=== PATIENT | male | born 1940 | race African-American/Black ===

== ENCOUNTER 2016-11-09 06:23 | Inpatient (IN) | payer MEDICARE, OTHER ==
[2016-11-09 07:18] LABS: VENOUS BLOOD BASE EXCESS 6.4 mmol/L; VENOUS BLOOD HCO3 31.5 mmol/L (20-32); VENOUS BLOOD PCO2 46.6 mmHg (35-63); VENOUS BLOOD PH 7.45 (7.30-7.42)
[2016-11-09 07:25] LABS: APPEARANCE,URINE SLIGHTLY-CLOUDY; BILIRUBIN,URINE NEGATIVE (NEGATIVE); GLUCOSE, URINE NEGATIVE (NEGATIVE); KETONES,URINE NEGATIVE (NEGATIVE); LEUKOCYTE ESTERASE,URINE LARGE (NEGATIVE); NITRITE,URINE NEGATIVE (NEGATIVE); PROTEIN,URINE 30 mg/dL (NEGATIVE); URINE SPECIFIC GRAVITY 1.011; UROBILINOGEN,URINE NEGATIVE mg/dL (<2.0)
[2016-11-09 07:26] LABS: HEMATOCRIT 39.8 % (37.9-51.0); HEMOGLOBIN 13.2 g/dL (13.5-17.0); HGB HCT DIFFERENCE -0.2; MEAN CORPUSCULAR HGB CONC 33.2 g/dL (32.0-36.0); MEAN CORPUSCULAR VOLUME 91 fl (80-97); RED CELL DISTRIBUTION WIDTH 15.1 % (11.5-14.0); WHITE BLOOD COUNT 25.7 10^3/uL (4.0-10.5)
[2016-11-09 07:28] LABS: PROTHROMBIN TIME 13.6 SEC (11.4-15.4)
[2016-11-09 07:31] LABS: ALANINE AMINOTRANSFERASE 71 U/L (21-72); ALBUMIN 3.7 g/dL (3.5-5.0); ALKALINE PHOSPHATASE 173 U/L (38-126); ANION GAP 15 (5-19); ASPARTATE AMINO TRANSFERASE 30 U/L (17-59); BILIRUBIN,TOTAL 0.6 mg/dL (0.2-1.3); BLOOD UREA NITROGEN 57 mg/dL (7-20); CALCIUM 10.4 mg/dL (8.4-10.2); CARBON DIOXIDE 30 mmol/L (22-30); CHLORIDE 97 mmol/L (98-107); CREATININE RESULT 0.71 mg/dL (0.52-1.25); GLUCOSE 178 mg/dL (75-110); POTASSIUM 4.8 mmol/L (3.6-5.0); SODIUM 142.4 mmol/L (137-145); TOTAL PROTEIN 8.1 g/dL (6.3-8.2)
[2016-11-09 07:44] LABS: BAND NEUTROPHILS % (MANUAL) 9 % (3-5); BASOPHILS % (MANUAL) 0 % (0-2); EOSINOPHILS % (MANUAL) 0 % (0-6); LYMPHOCYTES % (MANUAL) 1 % (13-45); RBC MORPHOLOGY COMMENT NORMO-CYTIC/CHROMIC; TOTAL CELLS COUNTED 100
[2016-11-09] MEDS ORDERED: LEVOFLOXACIN 750 MG/D5W RTU 150 ML IV ONE (08:09)
[2016-11-09] MEDS ORDERED: CEFTRIAXONE 1 GM/D5W RTU 50 ML IV ONE (08:09)
[2016-11-09] MEDS ORDERED: ACETAMINOPHEN 325 MG SUPP.RECT PR ONE (08:10)
--- NOTE | 2016-11-09 08:19 | ER Document Report ---
ED General - General Chief Complaint: Fever Stated Complaint: FEVER Mode of Arrival: Medic Information source: Emergency Med Personnel, [facility] Records, Outside Facility Records Cannot obtain history due to: Dementia, Other - nonverbal Notes: This is a 75-year-old male with a complex medical history to include CVA with hemorrhagic conversion, and sacral decubitus ulcers who was sent to the emergency department from care facility for blood in his Vazquez catheter. History is limited secondary the fact the patient has end-stage dementia and is nonverbal. Of note he was noted by EMS to be febrile with an axillary temperature of 101. TRAVEL OUTSIDE OF THE [place] IN LAST 30 DAYS: No - Related Data Allergies/Adverse Reactions: oxycodone [Oxycodone] Adverse Reaction (Intermediate, Verified 03/11/16 07:31) agitation simvastatin [From Zocor] Adverse Reaction (Unknown, Verified 03/11/16 07:31) dysarthria Home Medications: Current Home Medications Acetaminophen [Tylenol Susp 160 mg/5 mL Oral Syring] 20.31 ml PEG Q6HP PRN 11/09 [History] Amlodipine Besylate [Norvasc 5 mg Tablet] 5 mg PEG DAILY 11/09/16 [History] Ascorbic Acid [Vitamin C 500 mg Tablet] 500 mg PEG DAILY 11/09/16 [History] Cranberry Extract [Cranberry 200 mg Capsule] 400 mg PEG DAILY 11/09/16 [History] Guaifenesin [Tussin] 15 ml PEG Q6H 11/09/16 [History] Insulin Glargine,Hum.rec.anlog [Lantus] 18 units SQ QHS 11/09/16 [History] Isosorb Dinit/Hydralazine HCl [Bidil 20-37.5 mg Tablet] 2 tab PEG TID 11/09/16 [ History] Lactulose [Constulose 10 gm/15 mL Oral Solution] 30 ml PEG BID 11/09/16 [History ] Levetiracetam 750 mg PEG BID 11/09/16 [History] Lisinopril [Prinivil 40 mg Tablet] 40 mg PEG DAILY 11/09/16 [History] Nitroglycerin [Nitrostat] 0.4 mg SL Q3M 11/09/16 [History] Omeprazole 20 mg PEG DAILY 11/09/16 [History] Polyethylene Glycol 3350 [Miralax Powder 17 gm/Packet] 17 gm PEG DAILY 11/09/16 [History] Zinc Sulfate [Zinc-220 Capsule] 220 mg PEG DAILY 11/09/16 [History] Past Medical History - General Information source: COUNTS INCLUDE 234 BEDS AT THE [facility] Records Cannot obtain history due to: Dementia - Social History Smoking Status: Unknown if Ever Smoked Family History: Reviewed & Not Pertinent, Other - Unable to obtain given mental status - Past Medical History Cardiac Medical History: Reports: Hx Hypercholesterolemia, Hx Hypertension Neurological Medical History: Reports: Hx Cerebrovascular Accident - CVA in 2013 , History of subarachnoid hemorrhage in 2016, Hx Seizures Endocrine Medical History: Reports: Hx Diabetes Mellitus Type 2 Renal/ Medical History: Reports: Hx Benign Prostatic Hyperplasia GI Medical History: Reports: Hx Gastroesophageal Reflux Disease - PEG tube post CVA Musculoskeltal Medical History: Reports Hx Muscle Weakness Psychiatric Medical History: Reports: Hx Dementia Denies: Hx Depression Past Surgical History: Reports: Hx Abdominal Surgery - Feeding gastrostomy tube - Immunizations Hx Diphtheria, Pertussis, Tetanus Vaccination: Yes Hx Pneumococcal Vaccination: 05/25/14 Physical Exam - Vital signs Vitals: Temp Pulse Resp BP Pulse Ox 100.1 F 122 H 23 H 119/61 93 11/09/16 06:34 11/09/16 06:34 11/09/16 06:34 11/09/16 06:34 11/09/16 06:34 - Notes Notes: PHYSICAL EXAMINATION: GENERAL: Chronically ill-appearing elderly male, groaning and in mild respiratory distress. Nonverbal HEAD: Atraumatic, normocephalic. EYES: Pupils equal round and reactive to light ENT: nares patent, oropharynx clear without exudates. Moist mucous membranes. NECK: supple without lymphadenopathy LUNGS: Coarse breath sounds bilaterally anteriorly with decreased bibasilar breath sounds. Mild tachypnea and occasional grunting HEART: Tachycardic, regular rate without murmurs ABDOMEN: Soft, nontender, normoactive bowel sounds. EXTREMITIES: No edema noted NEUROLOGICAL: Patient is nonverbal and unable to follow commands. SKIN: Warm, Dry, no rash. Sacral decubitus covered with wound care bandage Course - Re-evaluation Re-evalutation: 11/09/16 09:02 Patient exam and vitals are concerning for sepsis. IV fluid resuscitation and IV antibiotics have been initiated. Further history obtained from the . She states that she noticed over the past 2 days that his urine output was decreased at the detention. This morning he was noted to have some bleeding around the Vazquez site as well as some increased work of breathing. She confirms that this time that this patient is a full code. 11/09/16 10:07 Clinically I suspect pneumonia along with the urinary tract infection. Fluid resuscitation and IV antibiotics initiated and patient will be admitted to the [facility]. This was discussed with the patient's . questions were answered - Vital Signs Vital signs: Temp Pulse Resp BP Pulse Ox 99.0 F 117 H 24 H 101/50 L 97 11/09/16 15:08 11/09/16 15:08 11/09/16 15:08 11/09/16 15:08 11/09/16 15:08 - Laboratory Result Diagrams: 11/09/16 06:50 11/09/16 06:50 Laboratory results interpreted by me: 11/09/16 11/09/16 11/09/16 06:50 06:50 06:50 WBC 25.7 H Hgb 13.2 L RDW 15.1 H Seg Neuts % (Manual) 86 H Band Neutrophils % 9 H Lymphocytes % (Manual) 1 L Abs Neuts (Manual) 24.4 H Abs Lymphs (Manual) 0.3 L VBG pH 7.45 H Chloride 97 L BUN 57 H Glucose 178 H Calcium 10.4 H Alkaline Phosphatase 173 H Creatine Kinase Urine Protein Urine Blood Ur Leukocyte Esterase Urine Ascorbic Acid 11/09/16 11/09/16 06:50 06:50 WBC Hgb RDW Seg Neuts % (Manual) Band Neutrophils % Lymphocytes % (Manual) Abs Neuts (Manual) Abs Lymphs (Manual) VBG pH Chloride BUN Glucose Calcium Alkaline Phosphatase Creatine Kinase 48 L Urine Protein 30 H Urine Blood LARGE H Ur Leukocyte Esterase LARGE H Urine Ascorbic Acid 40 H - EKG Interpretation by Me Additional EKG results interpreted by me: 11/09/16 09:06 EKG at 6:44 AM demonstrates sinus tachycardia with a rate of 121. There are some nonspecific T-wave changes. Critical Care Note - Critical Care Note Total time excluding time spent on procedures (mins): 35 - minutes of critical care time spent in direct contact evaluating and reevaluating the patient, treating symptoms, reviewing labs and studies and speaking with family and consultants excluding any procedures Discharge - Discharge Clinical Impression: Sepsis Qualifiers: Sepsis type: sepsis due to unspecified organism Qualified Code(s): A41.9 - Sepsis, unspecified organism UTI (urinary tract infection) Qualifiers: Urinary tract infection type: site unspecified Hematuria presence: without hematuria Qualified Code(s): N39.0 - Urinary tract infection, site not specified Pneumonia Qualifiers: Pneumonia type: due to unspecified organism Laterality: unspecified laterality Lung location: unspecified part of lung Qualified Code(s): J18.9 - Pneumonia, unspecified organism Condition: Poor Disposition: ADMITTED INPATIENT Admitting Provider: Hospitalist - Dr. Walker Unit Admitted: [facility]
[2016-11-09] MEDS ORDERED: IPRATROPIUM/ALBUTEROL 0.5-2.5 MG/3 ML AMPUL NEB ONE (08:53)
[2016-11-09] MEDS ORDERED: VANCOMYCIN HCL INJ 1000 MG VIAL IV ONE (09:01)
[2016-11-09] MEDS: RINGERS SOLUTION,LACTATED 1,000 ML IV PRN ×2 (09:10→15:25)
[2016-11-09 09:25] LABS: CREATINE KINASE MB 0.45 ng/mL (<4.55)
[2016-11-09 09:28] LABS: TROPONIN I < 0.012 ng/mL
[2016-11-09] MEDS ORDERED: ONDANSETRON HCL INJ/PF 4 MG/2 ML SDV IV PRN (11:21)
[2016-11-09] MEDS ORDERED: ACETAMINOPHEN 325 MG TABLET PEG PRN (11:21)
[2016-11-09] MEDS ORDERED: VANCOMYCIN HCL 0 MG in DEXTROSE 5%-WATER 250 ML IV NR (11:45)
[2016-11-09] MEDS ORDERED: DEXTROSE 50%-WATER 25 GM/50 ML DISP.SYRIN IV PRN ×2 (11:49)
[2016-11-09] MEDS ORDERED: DEXTROSE 40% GEL 15 GM TUBE PO PRN ×2 (11:49)
[2016-11-09] MEDS ORDERED: GLUCAGON,HUMAN RECOMB 1 MG INJ IM PRN (11:49)
[2016-11-09] MEDS ORDERED: NITROGLYCERIN 0.4 MG/TAB 25 TAB/BOTTLE SL PRN ×2 (12:00→12:45)
--- NOTE | 2016-11-09 12:23 | PDOC H&P ---
History of Present Illness Admission Date/PCP: 11/09/16 11:21 SHEFALI BAGLEY MD Patient complains of: Fever and hematuria. History of Present Illness: THAD JOY is a 75 year old male who has a history of severe dementia as well as having had a previous CVA with hemorrhagic conversion who presents as a transfer [facility] after being noted to have fever and hematuria. Patient had his chronic Vazquez catheter changed out yesterday. The patient when he presented to emergency room was found to have a fever. Patient has pyuria consistent with an acute urinary tract infection as well as some tachycardia and fever consistent with the diagnosis sepsis. The emergency room physician was concerned that the patient may have pneumonia given some rails in the basis however the chest x-ray did not show an obvious pneumonia. The patient does have a sacral decubitus that's about 1 cm in diameter with packing in place with no purulent drainage. The patient is unable to give any history. He does have a tear at his meatus of his penis from what may represent some minor Vazquez trauma. Patient is admitted for diagnosis of sepsis possibly from urinary tract infection versus early pneumonia. Past Medical History Cardiac Medical History: Reports: Hyperlipidema, Hypertension Neurological Medical History: Reports: Seizures Endocrine Medical History: Reports: Diabetes Mellitus Type 2 Renal/ Medical History: Reports: None Malignancy Medical History: Reports: None GI Medical History: Reports: Gastroesophageal Reflux Disease - PEG tube post CVA Psychiatric Medical History: Reports: Dementia Denies: Depression Hematology: Reports: Anemia Infectious Medical History: Reports: Other - History of osteomyelitis of the sacrum. Past Surgical History Past Surgical History: Reports: Other - PEG tube placed Social History Information Source: Relative Lives with: [facility] Smoking Status: Unknown if Ever Smoked Frequency of Alcohol Use: None Hx Recreational Drug Use: No Drugs: None Hx Prescription Drug Abuse: No - Advance Directive Resuscitation Status: Full Code Family History Family History: Other - Unable to obtain given mental status Parental Family History Reviewed: No Children Family History Reviewed: No Sibling(s) Family History Reviewed.: No Medication/Allergy Home Medications: Acetaminophen [Tylenol Susp 160 mg/5 mL Oral Syring] 20.31 ml PEG Q6HP PRN 11/09 Amlodipine Besylate [Norvasc 5 mg Tablet] 5 mg PEG DAILY 11/09/16 Ascorbic Acid [Vitamin C 500 mg Tablet] 500 mg PEG DAILY 11/09/16 Cranberry Extract [Cranberry 200 mg Capsule] 400 mg PEG DAILY 11/09/16 Guaifenesin [Tussin] 15 ml PEG Q6H 11/09/16 Insulin Glargine,Hum.rec.anlog [Lantus] 18 units SQ QHS 11/09/16 Isosorb Dinit/Hydralazine HCl [Bidil 20-37.5 mg Tablet] 2 tab PEG TID 11/09/16 Lactulose [Constulose 10 gm/15 mL Oral Solution] 30 ml PEG BID 11/09/16 Levetiracetam 750 mg PEG BID 11/09/16 Lisinopril [Prinivil 40 mg Tablet] 40 mg PEG DAILY 11/09/16 Nitroglycerin [Nitrostat] 0.4 mg SL Q3M 11/09/16 Omeprazole 20 mg PEG DAILY 11/09/16 Polyethylene Glycol 3350 [Miralax Powder 17 gm/Packet] 17 gm PEG DAILY 11/09/16 Zinc Sulfate [Zinc-220 Capsule] 220 mg PEG DAILY 11/09/16 Allergies/Adverse Reactions: oxycodone [Oxycodone] Adverse Reaction (Intermediate, Verified 03/11/16 07:31) agitation simvastatin [From Zocor] Adverse Reaction (Unknown, Verified 03/11/16 07:31) dysarthria Review of Systems ROS unobtainable: Due to mental status Physical Exam Vital Signs: Temp Pulse Resp BP Pulse Ox 99.0 F 111 H 24 H 139/67 H 93 11/09/16 11:56 11/09/16 11:57 11/09/16 11:56 11/09/16 11:56 11/09/16 11:56 General appearance: PRESENT: no acute distress Head exam: PRESENT: atraumatic, normocephalic Eye exam: PRESENT: conjunctiva pink, EOMI. ABSENT: scleral icterus Ear exam: PRESENT: normal external ear exam Mouth exam: PRESENT: moist, tongue midline Neck exam: ABSENT: carotid bruit, JVD, lymphadenopathy, thyromegaly Respiratory exam: PRESENT: rhonchi - Coarse rhonchi in the bases.. ABSENT: rales, wheezes Cardiovascular exam: PRESENT: RRR. ABSENT: diastolic murmur, rubs, systolic murmur Vascular exam: PRESENT: normal capillary refill GI/Abdominal exam: PRESENT: normal bowel sounds, soft, other - PEG tube in place.. ABSENT: distended, guarding, mass, organolmegaly, rebound, tenderness Rectal exam: PRESENT: heme (-) stool Gentrourinary exam: PRESENT: indwelling catheter, other - Ventral side of penis shows a small tear in the meatus. Extremities exam: ABSENT: calf tenderness, clubbing, pedal edema Neurological exam: PRESENT: awake. ABSENT: alert, oriented to person, oriented to place, oriented to time, oriented to situation Psychiatric exam: PRESENT: flat affect Skin exam: PRESENT: other - Scar on the sacrum from an old large decubitus now with a small 1 cm area of skin breakdown has a dressing in place. Results Impressions: Chest X-Ray 11/09/16 06:35 IMPRESSION: NO ACUTE RADIOGRAPHIC FINDING IN THE CHEST. Assessment & Plan - Diagnosis (1) Sepsis Qualifiers: Sepsis type: sepsis due to unspecified organism Qualified Code(s): A41.9 - Sepsis, unspecified organism Is this a current diagnosis for this admission?: YesPlan: Patient has fever, tachycardia as well as relatively low blood pressure but still the normal range. He also has a source for infection in the form of urinary tract infection and this most likely represents early sepsis. Patient may have a pneumonia which is not present on chest x-ray but clinically is suggested. We will give IV fluids and will cover with Rocephin and vancomycin. Patient has been a resident of a long-term and is at risk for nosocomial infection. (2) UTI (urinary tract infection) Qualifiers: Urinary tract infection type: site unspecified Hematuria presence: without hematuria Qualified Code(s): N39.0 - Urinary tract infection, site not specified Is this a current diagnosis for this admission?: YesPlan: Patient has a chronic indwelling Vazquez. The patient has a history of growing out Proteus as well as group B strep. We'll cover with Rocephin and vancomycin. (3) Pneumonia Qualifiers: Pneumonia type: due to unspecified organism Laterality: unspecified laterality Lung location: unspecified part of lung Qualified Code(s): J18.9 - Pneumonia, unspecified organism Is this a current diagnosis for this admission?: YesPlan: Patient has physical findings that are suggestive of pneumonia although is not present on the chest x-ray. We'll go ahead and cover with Rocephin and vancomycin. (4) Diabetes mellitus Is this a current diagnosis for this admission?: YesPlan: We'll continue with scheduled insulin as well as sliding scale insulin coverage. (5) Hyperlipidemia Is this a current diagnosis for this admission?: Yes (6) Dementia Is this a current diagnosis for this admission?: YesPlan: Patient at baseline does not answer questions or interact. (7) Seizure disorder Is this a current diagnosis for this admission?: YesPlan: We'll continue his outpatient antiepileptic regimen. (8) G tube feedings Is this a current diagnosis for this admission?: YesPlan: Patient has been getting Glucerna 1.2 at 80 mL per hour with water flushes 250 mL every 6 hours. (9) HTN (hypertension) Qualifiers: Hypertension type: essential hypertension Qualified Code(s): I10 - Essential (primary) hypertension Is this a current diagnosis for this admission?: Yes (10) Osteomyelitis Is this a current diagnosis for this admission?: YesPlan: Patient has a history of vasculitis of the sacrum. He has completed a six-week course of antibiotics for this. He still has a small area skin breakdown her sacrum but does not appear to be involving the bone at this time. (11) Decubitus ulcer of coccygeal region, stage 2 Is this a current diagnosis for this admission?: YesPlan: We'll do wet-to-dry dressings and a small area approximately 1 cm of the coccygeal area (12) History of cerebral hemorrhage Is this a current diagnosis for this admission?: Yes (13) Full code status Is this a current diagnosis for this admission?: YesPlan: Daughter is at the bedside and she wants him to be a full code. - Time Time Spent: 50 to 70 Minutes - Inpatient Certification Medical Necessity: Need Close Monitoring Due to Risk of Patient Decompensation
[2016-11-09] MEDS: NORMAL SALINE 1000 ML 1,000 ML IV PRN (12:31)
[2016-11-09] MEDS ORDERED: LANSOPRAZOLE 15 MG TAB.RAP.DR PEG ONE (13:00)
[2016-11-09] MEDS ORDERED: AMLODIPINE BESYLATE 5 MG TABLET PEG ONE (13:00)
[2016-11-09] MEDS ORDERED: VANCOMYCIN HCL 1,500 MG in DEXTROSE 5%-WATER 250 ML IV ONE (13:00)
[2016-11-09] MEDS ORDERED: LEVETIRACETAM ORAL SOLN 500 MG/5 ML UDCUP PEG ONE (13:00)
[2016-11-09] MEDS ORDERED: ZINC SULFATE 220 MG CAPSULE PEG ONE (13:00)
[2016-11-09] MEDS ORDERED: LISINOPRIL 10 MG TABLET PEG ONE (13:00)
[2016-11-09] MEDS ORDERED: ASCORBIC ACID 500 MG TABLET PEG ONE (13:00)
[2016-11-09] MEDS ORDERED: POLYETHYLENE GLYCOL 3350 POWDER 17 GM/1 PACKET PEG ONE (13:00)
[2016-11-09] MEDS: GUAIFENESIN SYRP 200 MG/10 ML UDC PEG SCH ×2 (13:15→17:03)
[2016-11-09] MEDS: IPRATROPIUM/ALBUTEROL 0.5-2.5 MG/3 ML AMPUL NEB PRN ×2 (13:28→20:50)
[2016-11-09] MEDS: ISOSORB DINIT/HYDRALAZINE HCL 20-37.5 MG TABLET PEG SCH ×2 (15:25→21:47)
--- NOTE | 2016-11-09 16:10 | EKG REPORT ---
SEVERITY:- OTHERWISE NORMAL ECG - SINUS TACHYCARDIA : Confirmed by: Dahlia Oliver MD 09-Nov-2016 16:10:02
[2016-11-09] MEDS ORDERED: ENOXAPARIN SODIUM INJ 40 MG/0.4 ML DISP.SYRIN SUBCUT ONE (16:30)
[2016-11-09] MEDS: LACTULOSE SYRUP 20 GM/30 ML UDCUP PEG SCH (17:03)
[2016-11-09] MEDS ORDERED: (PENDING PHARMACY ID) (Lactulose [Constulose 10 Gm/15 Ml Oral Solution] 30 ML) PEG SCH (18:00)
[2016-11-09] MEDS: INSULIN GLARGINE,HUM.REC.ANLOG 300 UNIT/3 ML INSULN.PEN SUBCUT SCH (21:43)
[2016-11-09] MEDS: INSULIN LISPRO 100 UNIT/ML 3 ML VIAL SUBCUT PRN (21:44)
[2016-11-09] MEDS: LEVETIRACETAM ORAL SOLN 500 MG/5 ML UDCUP PEG SCH (21:45)
[2016-11-09] MEDS: FAMOTIDINE 20 MG TABLET PO SCH (21:45)
[2016-11-09] MEDS ORDERED: INSULIN GLARGINE,HUM.REC.ANLOG 1,000 UNIT/10 ML UNIT SUBCUT SCH (22:00)
[2016-11-10] MEDS: GUAIFENESIN SYRP 200 MG/10 ML UDC PEG SCH ×4 (00:37→17:03)
[2016-11-10] MEDS: NORMAL SALINE 1000 ML 1,000 ML IV PRN ×3 (03:59→22:42)
[2016-11-10 04:40] LABS: HEMATOCRIT 34.9 % (37.9-51.0); HEMOGLOBIN 11.3 g/dL (13.5-17.0); MEAN CORPUSCULAR HGB CONC 32.4 g/dL (32.0-36.0); MEAN CORPUSCULAR VOLUME 93 fl (80-97); RED BLOOD COUNT 3.77 10^6/uL (4.35-5.55); RED CELL DISTRIBUTION WIDTH 15.5 % (11.5-14.0); WHITE BLOOD COUNT 21.5 10^3/uL (4.0-10.5)
[2016-11-10 05:05] LABS: ANION GAP 14 (5-19); BLOOD UREA NITROGEN 48 mg/dL (7-20); CALCIUM 9.5 mg/dL (8.4-10.2); CARBON DIOXIDE 25 mmol/L (22-30); CHLORIDE 104 mmol/L (98-107); GLUCOSE 183 mg/dL (75-110); MAGNESIUM 2.1 mg/dL (1.6-2.3); POTASSIUM 4.4 mmol/L (3.6-5.0); SODIUM 142.5 mmol/L (137-145)
[2016-11-10] MEDS: ISOSORB DINIT/HYDRALAZINE HCL 20-37.5 MG TABLET PEG SCH ×3 (05:39→22:43)
[2016-11-10] MEDS: VANCOMYCIN HCL 750 MG in DEXTROSE 5%-WATER 250 ML IV SCH ×2 (05:46→17:03)
[2016-11-10] MEDS: INSULIN LISPRO 100 UNIT/ML 3 ML VIAL SUBCUT PRN ×2 (06:37→18:52)
[2016-11-10] MEDS ORDERED: ENOXAPARIN SODIUM INJ 40 MG/0.4 ML DISP.SYRIN SUBCUT SCH (08:00)
[2016-11-10] MEDS: ENOXAPARIN SODIUM INJ 40 MG/0.4 ML DISP.SYRIN SUBCUT SCH (08:45)
[2016-11-10] MEDS ORDERED: CRANBERRY EXTRACT 400 MG PEG SCH (10:00)
[2016-11-10] MEDS: IPRATROPIUM/ALBUTEROL 0.5-2.5 MG/3 ML AMPUL NEB PRN (10:24)
[2016-11-10] MEDS: POLYETHYLENE GLYCOL 3350 POWDER 17 GM/1 PACKET PEG SCH (10:54)
[2016-11-10] MEDS: LISINOPRIL 10 MG TABLET PEG SCH (10:54)
[2016-11-10] MEDS: ASCORBIC ACID 500 MG TABLET PEG SCH (10:55)
[2016-11-10] MEDS: FAMOTIDINE 20 MG TABLET PO SCH ×2 (10:55→22:41)
[2016-11-10] MEDS: AMLODIPINE BESYLATE 5 MG TABLET PEG SCH (10:55)
[2016-11-10] MEDS: LACTULOSE SYRUP 20 GM/30 ML UDCUP PEG SCH ×2 (10:55→17:03)
[2016-11-10] MEDS: LANSOPRAZOLE 15 MG TAB.RAP.DR PEG SCH (10:55)
[2016-11-10] MEDS: ZINC SULFATE 220 MG CAPSULE PEG SCH (10:56)
[2016-11-10] MEDS: CEFTRIAXONE 1 GM/D5W RTU 50 ML IV SCH (10:56)
[2016-11-10] MEDS: LEVETIRACETAM ORAL SOLN 500 MG/5 ML UDCUP PEG SCH ×2 (10:57→22:41)
--- NOTE | 2016-11-10 11:00 | PDOC PROGRESS REPORT ---
Subjective Progress Note for:: 11/10/16 Subjective:: Patient is nonverbal. Physical Exam Vital Signs: Temp Pulse Resp BP Pulse Ox 97.3 F 84 20 99/51 L 95 11/10/16 07:19 11/10/16 10:24 11/10/16 10:24 11/10/16 07:19 11/10/16 10:24 Intake & Output 11/09/16 11/10/16 11/11/16 06:59 06:59 06:59 Intake Total 8184 Output Total 1300 Balance 6884 Weight 80.2 kg General appearance: PRESENT: no acute distress Eye exam: PRESENT: conjunctiva pink. ABSENT: scleral icterus Mouth exam: PRESENT: moist, tongue midline Neck exam: ABSENT: JVD Respiratory exam: PRESENT: clear to auscultation yokasta. ABSENT: rales, rhonchi, wheezes Cardiovascular exam: PRESENT: RRR. ABSENT: diastolic murmur, rubs, systolic murmur GI/Abdominal exam: PRESENT: normal bowel sounds, soft, other - G-tube in place.. ABSENT: distended, guarding, mass, organolmegaly, rebound, tenderness Extremities exam: PRESENT: full ROM. ABSENT: calf tenderness, clubbing, pedal edema Neurological exam: PRESENT: awake, other - Patient is nonverbal Psychiatric exam: PRESENT: flat affect Skin exam: PRESENT: other - Dressing in place on the sacrum Results Laboratory Results: 11/10/16 03:48 11/10/16 03:48 11/10/16 11/10/16 03:48 03:48 WBC 21.5 H RBC 3.77 L Hgb 11.3 L Hct 34.9 L MCV 93 MCH 30.0 MCHC 32.4 RDW 15.5 H Plt Count 160 Sodium 142.5 Potassium 4.4 Chloride 104 Carbon Dioxide 25 Anion Gap 14 BUN 48 H Creatinine 0.70 Est GFR ( Amer) > 60 Est GFR (Non-Af Amer) > 60 Glucose 183 H Calcium 9.5 Magnesium 2.1 Impressions: Chest X-Ray 11/09/16 06:35 IMPRESSION: NO ACUTE RADIOGRAPHIC FINDING IN THE CHEST. Assessment & Plan - Diagnosis (1) Sepsis Qualifiers: Sepsis type: sepsis due to unspecified organism Qualified Code(s): A41.9 - Sepsis, unspecified organism Is this a current diagnosis for this admission?: YesPlan: Patient has fever, tachycardia as well as relatively low blood pressure but still the normal range. He also has a source for infection in the form of urinary tract infection and this most likely represents early sepsis. Patient may have a pneumonia which is not present on chest x-ray but clinically is suggested. We will give IV fluids and will cover with Rocephin and vancomycin. Patient has been a resident of a half-way and is at risk for nosocomial infection. (2) UTI (urinary tract infection) Qualifiers: Urinary tract infection type: site unspecified Hematuria presence: without hematuria Qualified Code(s): N39.0 - Urinary tract infection, site not specified Is this a current diagnosis for this admission?: YesPlan: Patient has a chronic indwelling Vazquez. The patient has a history of growing out Proteus as well as group B strep. We'll cover with Rocephin and vancomycin. Cultures are growing gram-negative rods and gram-positive cocci. (3) Pneumonia Qualifiers: Pneumonia type: due to unspecified organism Laterality: unspecified laterality Lung location: unspecified part of lung Qualified Code(s): J18.9 - Pneumonia, unspecified organism Is this a current diagnosis for this admission?: YesPlan: Patient had physical findings that are suggestive of pneumonia although is not present on the chest x-ray. We'll go ahead and cover with Rocephin and vancomycin. (4) Diabetes mellitus Is this a current diagnosis for this admission?: YesPlan: We'll continue with scheduled insulin as well as sliding scale insulin coverage. Blood sugars have ranged from 170-240. (5) Hyperlipidemia Is this a current diagnosis for this admission?: Yes (6) Dementia Is this a current diagnosis for this admission?: YesPlan: Patient at baseline does not answer questions or interact. (7) Seizure disorder Is this a current diagnosis for this admission?: YesPlan: We'll continue his outpatient antiepileptic regimen. (8) G tube feedings Is this a current diagnosis for this admission?: YesPlan: Patient has been getting Glucerna 1.2 at 80 mL per hour with water flushes 250 mL every 6 hours. (9) HTN (hypertension) Qualifiers: Hypertension type: essential hypertension Qualified Code(s): I10 - Essential (primary) hypertension Is this a current diagnosis for this admission?: Yes (10) Osteomyelitis Is this a current diagnosis for this admission?: YesPlan: Patient has a history of osteomyelitis of the sacrum. The history and physical stated he had vasculitis but it should have read osteomyelitis. He has completed a six-week course of antibiotics for this. He still has a small area skin breakdown her sacrum but does not appear to be involving the bone at this time. (11) Decubitus ulcer of coccygeal region, stage 2 Is this a current diagnosis for this admission?: YesPlan: We'll do wet-to-dry dressings and a small area approximately 1 cm of the coccygeal area (12) History of cerebral hemorrhage Is this a current diagnosis for this admission?: Yes (13) Full code status Is this a current diagnosis for this admission?: YesPlan: Daughter wants him to be a full code. - Time Time Spent with patient: 25-34 minutes - Inpatient Certification Medical Necessity: Need for IV Antibiotics
[2016-11-10] MEDS: INSULIN GLARGINE,HUM.REC.ANLOG 300 UNIT/3 ML INSULN.PEN SUBCUT SCH (22:41)
[2016-11-11] MEDS: GUAIFENESIN SYRP 200 MG/10 ML UDC PEG SCH ×4 (00:54→17:13)
[2016-11-11] MEDS: INSULIN LISPRO 100 UNIT/ML 3 ML VIAL SUBCUT PRN ×4 (00:55→17:13)
[2016-11-11] MEDS: NORMAL SALINE 1000 ML 1,000 ML IV PRN ×3 (04:15→22:37)
[2016-11-11] MEDS: ISOSORB DINIT/HYDRALAZINE HCL 20-37.5 MG TABLET PEG SCH ×3 (05:38→22:37)
[2016-11-11] MEDS: VANCOMYCIN HCL 750 MG in DEXTROSE 5%-WATER 250 ML IV SCH ×2 (05:38→17:50)
[2016-11-11 06:12] LABS: ANION GAP 9 (5-19); BLOOD UREA NITROGEN 25 mg/dL (7-20); CALCIUM 9.1 mg/dL (8.4-10.2); CARBON DIOXIDE 26 mmol/L (22-30); CHLORIDE 108 mmol/L (98-107); CREATININE RESULT 0.45 mg/dL (0.52-1.25); GLUCOSE 155 mg/dL (75-110); SODIUM 143.2 mmol/L (137-145)
[2016-11-11 06:13] LABS: HEMATOCRIT 30.2 % (37.9-51.0); HGB HCT DIFFERENCE -0.2; MEAN CORPUSCULAR HEMOGLOBIN 30.3 pg (27.0-33.4); MEAN CORPUSCULAR HGB CONC 33.2 g/dL (32.0-36.0); MEAN CORPUSCULAR VOLUME 91 fl (80-97); RED BLOOD COUNT 3.31 10^6/uL (4.35-5.55); RED CELL DISTRIBUTION WIDTH 15.4 % (11.5-14.0); WHITE BLOOD COUNT 15.8 10^3/uL (4.0-10.5)
[2016-11-11 07:01] LABS: BAND NEUTROPHILS % (MANUAL) 2 % (3-5); BASOPHILS % (MANUAL) 0 % (0-2); EOSINOPHILS % (MANUAL) 1 % (0-6); LYMPHOCYTES % (MANUAL) 4 % (13-45); TOTAL CELLS COUNTED 100
[2016-11-11 07:04] LABS: ANISOCYTOSIS 1+; HYPOCHROMASIA SLIGHT; POLYCHROMASIA SLIGHT
[2016-11-11] MEDS: ENOXAPARIN SODIUM INJ 40 MG/0.4 ML DISP.SYRIN SUBCUT SCH (07:54)
--- NOTE | 2016-11-11 09:32 | PDOC PROGRESS REPORT ---
Subjective Progress Note for:: 11/11/16 Subjective:: Patient is nonverbal. Physical Exam Vital Signs: Temp Pulse Resp BP Pulse Ox 99.0 F 86 22 H 100/49 L 98 11/11/16 07:15 11/11/16 07:15 11/11/16 07:15 11/11/16 07:15 11/11/16 07:15 Intake & Output 11/10/16 11/11/16 11/12/16 06:59 06:59 06:59 Intake Total 8184 4817 Output Total 1300 2800 Balance 6884 2016 Weight 80.2 kg 90.2 kg General appearance: PRESENT: no acute distress Eye exam: PRESENT: conjunctiva pink. ABSENT: scleral icterus Ear exam: PRESENT: normal external ear exam Mouth exam: PRESENT: moist, tongue midline Neck exam: ABSENT: JVD Respiratory exam: PRESENT: clear to auscultation y[place]. ABSENT: rales, rhonchi, wheezes Cardiovascular exam: PRESENT: RRR. ABSENT: diastolic murmur, rubs, systolic murmur GI/Abdominal exam: PRESENT: normal bowel sounds, soft, other - G-tube in place the left upper quadrant. ABSENT: distended, guarding, mass, organolmegaly, rebound, tenderness Gentrourinary exam: PRESENT: indwelling catheter, other - Medial aspect of the meatus has a small amount of clot present. Extremities exam: ABSENT: calf tenderness, clubbing, pedal edema Neurological exam: PRESENT: other - Patient is nonverbal does not interact. Psychiatric exam: PRESENT: flat affect Skin exam: PRESENT: other - Stage II decubitus on the sacrum approximately 1 cm in diameter. Results Laboratory Results: 11/11/16 04:31 11/11/16 04:31 11/11/16 11/11/16 04:31 04:31 WBC 15.8 H RBC 3.31 L Hgb 10.0 L Hct 30.2 L MCV 91 MCH 30.3 MCHC 33.2 RDW 15.4 H Plt Count 145 L Seg Neutrophils % Not Reportable Lymphocytes % Not Reportable Monocytes % Not Reportable Eosinophils % Not Reportable Basophils % Not Reportable Absolute Neutrophils Not Reportable Absolute Lymphocytes Not Reportable Absolute Monocytes Not Reportable Absolute Eosinophils Not Reportable Absolute Basophils Not Reportable Sodium 143.2 Potassium 4.0 Chloride 108 H Carbon Dioxide 26 Anion Gap 9 BUN 25 H Creatinine 0.45 L Est GFR ( Amer) > 60 Est GFR (Non-Af Amer) > 60 Glucose 155 H Calcium 9.1 Impressions: Chest X-Ray 11/09/16 06:35 IMPRESSION: NO ACUTE RADIOGRAPHIC FINDING IN THE CHEST. Assessment & Plan - Diagnosis (1) Sepsis Qualifiers: Sepsis type: sepsis due to unspecified organism Qualified Code(s): A41.9 - Sepsis, unspecified organism Is this a current diagnosis for this admission?: YesPlan: Patient has fever, tachycardia as well as relatively low blood pressure but still the normal range. He also has a source for infection in the form of urinary tract infection and this most likely represents early sepsis. Patient may have a pneumonia which is not present on chest x-ray but clinically is suggested. We will give IV fluids and will cover with Rocephin and vancomycin. Patient has been a resident of a retirement and is at risk for nosocomial infection. Patient is growing gram-positive cocci from blood culture and gram- negative jelani from urine culture. He does have a chronic indwelling Vazquez. (2) UTI (urinary tract infection) Qualifiers: Urinary tract infection type: site unspecified Hematuria presence: without hematuria Qualified Code(s): N39.0 - Urinary tract infection, site not specified Is this a current diagnosis for this admission?: YesPlan: Patient has a chronic indwelling Vazquez. The patient has a history of growing out Proteus as well as group B strep. We'll cover with Rocephin and vancomycin. Cultures are growing gram-negative rods and gram-positive cocci. (3) Pneumonia Qualifiers: Pneumonia type: due to unspecified organism Laterality: unspecified laterality Lung location: unspecified part of lung Qualified Code(s): J18.9 - Pneumonia, unspecified organism Is this a current diagnosis for this admission?: YesPlan: Patient had physical findings that are suggestive of pneumonia although is not present on the chest x-ray. We'll go ahead and cover with Rocephin and vancomycin. (4) Diabetes mellitus Is this a current diagnosis for this admission?: YesPlan: We'll continue with scheduled insulin as well as sliding scale insulin coverage. Blood sugars have ranged from 135-226 (5) Hyperlipidemia Is this a current diagnosis for this admission?: Yes (6) Dementia Is this a current diagnosis for this admission?: YesPlan: Patient at baseline does not answer questions or interact. (7) Seizure disorder Is this a current diagnosis for this admission?: YesPlan: We'll continue his outpatient antiepileptic regimen. (8) G tube feedings Is this a current diagnosis for this admission?: YesPlan: Patient has been getting Glucerna 1.2 at 80 mL per hour with water flushes 250 mL every 6 hours. (9) HTN (hypertension) Qualifiers: Hypertension type: essential hypertension Qualified Code(s): I10 - Essential (primary) hypertension Is this a current diagnosis for this admission?: Yes (10) Osteomyelitis Is this a current diagnosis for this admission?: YesPlan: Patient has a history of osteomyelitis of the sacrum. The history and physical stated he had vasculitis but it should have read osteomyelitis. He has completed a six-week course of antibiotics for this. He still has a small area skin breakdown her sacrum but does not appear to be involving the bone at this time. (11) Decubitus ulcer of coccygeal region, stage 2 Is this a current diagnosis for this admission?: YesPlan: We'll do wet-to-dry dressings and a small area approximately 1 cm of the coccygeal area (12) History of cerebral hemorrhage Is this a current diagnosis for this admission?: Yes (13) Full code status Is this a current diagnosis for this admission?: YesPlan: Daughter wants him to be a full code. - Time Time Spent with patient: 25-34 minutes - Inpatient Certification Medical Necessity: Need for IV Antibiotics
[2016-11-11] MEDS: LISINOPRIL 10 MG TABLET PEG SCH (10:13)
[2016-11-11] MEDS: AMLODIPINE BESYLATE 5 MG TABLET PEG SCH (10:13)
[2016-11-11] MEDS: LACTULOSE SYRUP 20 GM/30 ML UDCUP PEG SCH ×2 (10:22→17:13)
[2016-11-11] MEDS: ZINC SULFATE 220 MG CAPSULE PEG SCH (10:22)
[2016-11-11] MEDS: LANSOPRAZOLE 15 MG TAB.RAP.DR PEG SCH (10:22)
[2016-11-11] MEDS: LEVETIRACETAM ORAL SOLN 500 MG/5 ML UDCUP PEG SCH ×2 (10:22→22:36)
[2016-11-11] MEDS: POLYETHYLENE GLYCOL 3350 POWDER 17 GM/1 PACKET PEG SCH (10:22)
[2016-11-11] MEDS: FAMOTIDINE 20 MG TABLET PO SCH ×2 (10:22→22:37)
[2016-11-11] MEDS: CEFTRIAXONE 1 GM/D5W RTU 50 ML IV SCH (10:22)
[2016-11-11] MEDS: ASCORBIC ACID 500 MG TABLET PEG SCH (10:23)
[2016-11-11] MEDS: IPRATROPIUM/ALBUTEROL 0.5-2.5 MG/3 ML AMPUL NEB PRN ×2 (10:31→20:41)
[2016-11-11 18:39] LABS: CREATININE RESULT 0.42 mg/dL (0.52-1.25)
[2016-11-11] MEDS: INSULIN GLARGINE,HUM.REC.ANLOG 300 UNIT/3 ML INSULN.PEN SUBCUT SCH (22:37)
[2016-11-12] MEDS: INSULIN LISPRO 100 UNIT/ML 3 ML VIAL SUBCUT PRN ×4 (01:15→17:50)
[2016-11-12] MEDS: GUAIFENESIN SYRP 200 MG/10 ML UDC PEG SCH ×5 (01:15→23:51)
[2016-11-12 04:54] LABS: ABSOLUTE EOSINOPHILS # (AUTO) 0.3 10^3/uL (0.0-0.6); ABSOLUTE LYMPHOCYTES (AUTO) 0.7 10^3/uL (0.5-4.7); ABSOLUTE NEUT (AUTO) 10.5 10^3/uL (1.7-8.2); BASOPHILS % (AUTO) 0.2 % (0-2); EOSINOPHILS % (AUTO) 2.6 % (0-6); HEMATOCRIT 28.7 % (37.9-51.0); HEMOGLOBIN 9.7 g/dL (13.5-17.0); HGB HCT DIFFERENCE 0.4; LYMPHOCYTES % (AUTO) 5.5 % (13-45); MEAN CORPUSCULAR HEMOGLOBIN 30.6 pg (27.0-33.4); MEAN CORPUSCULAR HGB CONC 33.7 g/dL (32.0-36.0); MEAN CORPUSCULAR VOLUME 91 fl (80-97); RED BLOOD COUNT 3.16 10^6/uL (4.35-5.55); RED CELL DISTRIBUTION WIDTH 15.4 % (11.5-14.0); SEGMENTED NEUTROPHILS % (AUTO) 83.7 % (42-78); WHITE BLOOD COUNT 12.6 10^3/uL (4.0-10.5)
[2016-11-12 05:09] LABS: ANION GAP 7 (5-19); BLOOD UREA NITROGEN 15 mg/dL (7-20); CALCIUM 9.2 mg/dL (8.4-10.2); CARBON DIOXIDE 27 mmol/L (22-30); CHLORIDE 112 mmol/L (98-107); CREATININE RESULT 0.38 mg/dL (0.52-1.25); GLUCOSE 132 mg/dL (75-110); POTASSIUM 3.9 mmol/L (3.6-5.0); SODIUM 145.7 mmol/L (137-145)
[2016-11-12] MEDS: VANCOMYCIN HCL 750 MG in DEXTROSE 5%-WATER 250 ML IV SCH (05:12)
[2016-11-12] MEDS: NORMAL SALINE 1000 ML 1,000 ML IV PRN (05:15)
[2016-11-12] MEDS: ISOSORB DINIT/HYDRALAZINE HCL 20-37.5 MG TABLET PEG SCH ×3 (05:16→21:22)
[2016-11-12] MEDS: ENOXAPARIN SODIUM INJ 40 MG/0.4 ML DISP.SYRIN SUBCUT SCH (07:37)
[2016-11-12] MEDS: CEFTRIAXONE 1 GM/D5W RTU 50 ML IV SCH (09:41)
[2016-11-12] MEDS: FAMOTIDINE 20 MG TABLET PO SCH ×2 (09:42→21:22)
[2016-11-12] MEDS: LANSOPRAZOLE 15 MG TAB.RAP.DR PEG SCH (09:42)
[2016-11-12] MEDS: AMLODIPINE BESYLATE 5 MG TABLET PEG SCH (09:42)
[2016-11-12] MEDS: LISINOPRIL 10 MG TABLET PEG SCH (09:43)
[2016-11-12] MEDS: ASCORBIC ACID 500 MG TABLET PEG SCH (09:43)
[2016-11-12] MEDS: ZINC SULFATE 220 MG CAPSULE PEG SCH (09:44)
[2016-11-12] MEDS: LEVETIRACETAM ORAL SOLN 500 MG/5 ML UDCUP PEG SCH ×2 (09:44→21:18)
[2016-11-12] MEDS: LACTULOSE SYRUP 20 GM/30 ML UDCUP PEG SCH ×2 (09:44→17:17)
[2016-11-12] MEDS: POLYETHYLENE GLYCOL 3350 POWDER 17 GM/1 PACKET PEG SCH (09:44)
[2016-11-12] MEDS ORDERED: NORMAL SALINE 1000 ML 1,000 ML IV PRN (10:33)
--- NOTE | 2016-11-12 10:44 | PDOC PROGRESS REPORT ---
Subjective Progress Note for:: 11/12/16 Subjective:: The patient is nonverbal. Reported chest congestion but chest x-ray was negative for infiltrate. No reported temperature spikes, nausea or vomiting, diarrhea or respiratory distress. Has chronic indwelling PEG tube and Vazquez catheter. Physical Exam Vital Signs: Temp Pulse Resp BP Pulse Ox 99.3 F 86 24 H 126/58 H 100 11/12/16 07:45 11/12/16 07:59 11/12/16 07:45 11/12/16 07:45 11/12/16 07:45 Intake & Output 11/11/16 11/12/16 11/13/16 06:59 06:59 06:59 Intake Total 4817 6728 160 Output Total 2800 3225 Balance 2016 3513 160 Weight 90.2 kg 93.2 kg General appearance: PRESENT: no acute distress, obese Head exam: PRESENT: normocephalic Eye exam: PRESENT: conjunctiva pink Mouth exam: PRESENT: moist, other - Neck contracture Neck exam: ABSENT: JVD Respiratory exam: PRESENT: rhonchi - Bilateral. ABSENT: wheezes Cardiovascular exam: PRESENT: RRR. ABSENT: gallop GI/Abdominal exam: PRESENT: hyperactive bowel sounds, soft. ABSENT: tenderness Extremities exam: ABSENT: pedal edema Neurological exam: PRESENT: other - Nonverbal Skin exam: PRESENT: dry, warm. ABSENT: cyanosis Results Laboratory Results: 11/12/16 04:28 11/12/16 04:28 11/11/16 11/12/16 11/12/16 17:45 04:28 04:28 WBC 12.6 H RBC 3.16 L Hgb 9.7 L Hct 28.7 L MCV 91 MCH 30.6 MCHC 33.7 RDW 15.4 H Plt Count 131 L Seg Neutrophils % 83.7 H Lymphocytes % 5.5 L Monocytes % 8.0 Eosinophils % 2.6 Basophils % 0.2 Absolute Neutrophils 10.5 H Absolute Lymphocytes 0.7 Absolute Monocytes 1.0 Absolute Eosinophils 0.3 Absolute Basophils 0.0 Sodium 145.7 H Potassium 3.9 Chloride 112 H Carbon Dioxide 27 Anion Gap 7 BUN 15 Creatinine 0.42 L 0.38 L Est GFR ( Amer) > 60 > 60 Est GFR (Non-Af Amer) > 60 > 60 Glucose 132 H Calcium 9.2 11/10/16 03:30 Nasophary ([facility] Only) MRSA Surveillance Culture - Final NO MRSA RECOVERED Impressions: Chest X-Ray 11/09/16 06:35 IMPRESSION: NO ACUTE RADIOGRAPHIC FINDING IN THE CHEST. Assessment & Plan - Diagnosis (1) Pneumonia Qualifiers: Pneumonia type: due to unspecified organism Laterality: unspecified laterality Lung location: unspecified part of lung Qualified Code(s): J18.9 - Pneumonia, unspecified organism Is this a current diagnosis for this admission?: Yes (2) Sepsis Qualifiers: Sepsis type: sepsis due to unspecified organism Qualified Code(s): A41.9 - Sepsis, unspecified organism Is this a current diagnosis for this admission?: Yes (3) UTI (urinary tract infection) Qualifiers: Urinary tract infection type: site unspecified Hematuria presence: without hematuria Qualified Code(s): N39.0 - Urinary tract infection, site not specified Is this a current diagnosis for this admission?: Yes (4) Dehydration Is this a current diagnosis for this admission?: Yes (5) Hypercalcemia Is this a current diagnosis for this admission?: Yes (6) Dementia Qualifiers: Dementia type: unspecified type Dementia behavioral disturbance: without behavioral disturbance Qualified Code(s): F03.90 - Unspecified dementia without behavioral disturbance Is this a current diagnosis for this admission?: Yes (7) Thrombocytopenia Is this a current diagnosis for this admission?: Yes (8) Decubitus ulcer of coccygeal region, stage 2 Is this a current diagnosis for this admission?: Yes (9) Diabetes mellitus Qualifiers: Diabetes mellitus type: type 2 Diabetes mellitus complication status: with unspecified complications Diabetes mellitus usp insulin use: unspecified usp insulin use status Qualified Code(s): E11.8 - Type 2 diabetes mellitus with unspecified complications Is this a current diagnosis for this admission?: Yes (10) Hyperlipidemia Qualifiers: Hyperlipidemia type: unspecified Qualified Code(s): E78.5 - Hyperlipidemia, unspecified Is this a current diagnosis for this admission?: Yes (11) Seizure disorder Is this a current diagnosis for this admission?: Yes (12) HTN (hypertension) Qualifiers: Hypertension type: essential hypertension Qualified Code(s): I10 - Essential (primary) hypertension Is this a current diagnosis for this admission?: Yes (13) Anemia of chronic disease Is this a current diagnosis for this admission?: Yes (14) History of stroke Is this a current diagnosis for this admission?: Yes - Time Time Spent with patient: 25-34 minutes - Plan Summary Plan Summary: Patient is now on feedings. We will decrease intravenous fluids. Change antibiotic to Unasyn. Follow cultures. Monitor white count and hematocrit. Continue supportive care. Hypercalcemia has resolved.
[2016-11-12] MEDS ORDERED: AMPICILLIN SOD/SULBACTAM 1.5 GM VIAL IV SCH (10:45)
[2016-11-12] MEDS ORDERED: AMPICILLIN SODIUM/SULBACTAM NA 1.5 GM in NORMAL SALINE 50 ML IV SCH (12:00)
[2016-11-12] MEDS ORDERED: DORIPENEM INJ 500 MG VIAL IV SCH (14:00)
[2016-11-12] MEDS: DORIPENEM 500 MG in NORMAL SALINE 100 ML IV SCH ×2 (15:58→21:16)
[2016-11-12] MEDS ORDERED: VANCOMYCIN HCL 1,000 MG in DEXTROSE 5%-WATER 250 ML IV SCH (18:00)
[2016-11-12] MEDS: IPRATROPIUM/ALBUTEROL 0.5-2.5 MG/3 ML AMPUL NEB PRN (19:56)
[2016-11-12] MEDS: NORMAL SALINE 10 ML SDV (SCHEDULED) IV SCH (21:22)
[2016-11-12] MEDS: INSULIN GLARGINE,HUM.REC.ANLOG 300 UNIT/3 ML INSULN.PEN SUBCUT SCH (21:51)
[2016-11-13 05:25] LABS: HEMATOCRIT 27.7 % (37.9-51.0); HEMOGLOBIN 9.3 g/dL (13.5-17.0); HGB HCT DIFFERENCE 0.2; MEAN CORPUSCULAR HEMOGLOBIN 30.5 pg (27.0-33.4); MEAN CORPUSCULAR HGB CONC 33.5 g/dL (32.0-36.0); MEAN CORPUSCULAR VOLUME 91 fl (80-97); RED BLOOD COUNT 3.04 10^6/uL (4.35-5.55); WHITE BLOOD COUNT 9.6 10^3/uL (4.0-10.5)
[2016-11-13 05:41] LABS: ANION GAP 8 (5-19); BLOOD UREA NITROGEN 17 mg/dL (7-20); CALCIUM 9.1 mg/dL (8.4-10.2); CARBON DIOXIDE 29 mmol/L (22-30); CHLORIDE 108 mmol/L (98-107); CREATININE RESULT 0.41 mg/dL (0.52-1.25); GLUCOSE 177 mg/dL (75-110); POTASSIUM 3.9 mmol/L (3.6-5.0); SODIUM 144.9 mmol/L (137-145)
[2016-11-13] MEDS: GUAIFENESIN SYRP 200 MG/10 ML UDC PEG SCH ×4 (06:01→23:17)
[2016-11-13] MEDS: DORIPENEM 500 MG in NORMAL SALINE 100 ML IV SCH ×3 (06:01→22:25)
[2016-11-13] MEDS: ISOSORB DINIT/HYDRALAZINE HCL 20-37.5 MG TABLET PEG SCH ×3 (06:01→22:25)
[2016-11-13] MEDS: INSULIN LISPRO 100 UNIT/ML 3 ML VIAL SUBCUT PRN ×3 (07:59→17:42)
[2016-11-13] MEDS: ENOXAPARIN SODIUM INJ 40 MG/0.4 ML DISP.SYRIN SUBCUT SCH (08:00)
[2016-11-13] MEDS: FAMOTIDINE 20 MG TABLET PO SCH ×2 (09:05→22:25)
[2016-11-13] MEDS: AMLODIPINE BESYLATE 5 MG TABLET PEG SCH (09:05)
[2016-11-13] MEDS: ASCORBIC ACID 500 MG TABLET PEG SCH (09:05)
[2016-11-13] MEDS: LISINOPRIL 10 MG TABLET PEG SCH (09:05)
[2016-11-13] MEDS: LANSOPRAZOLE 15 MG TAB.RAP.DR PEG SCH (09:05)
[2016-11-13] MEDS: LACTULOSE SYRUP 20 GM/30 ML UDCUP PEG SCH ×2 (09:07→17:02)
[2016-11-13] MEDS: NORMAL SALINE 10 ML SDV (AFTER EACH USE) IV PRN (09:07)
[2016-11-13] MEDS: ZINC SULFATE 220 MG CAPSULE PEG SCH (09:07)
[2016-11-13] MEDS: POLYETHYLENE GLYCOL 3350 POWDER 17 GM/1 PACKET PEG SCH (09:07)
[2016-11-13] MEDS: LEVETIRACETAM ORAL SOLN 500 MG/5 ML UDCUP PEG SCH ×2 (09:07→22:26)
[2016-11-13] MEDS: NORMAL SALINE 10 ML SDV (SCHEDULED) IV SCH ×2 (09:07→22:26)
[2016-11-13] MEDS: IPRATROPIUM/ALBUTEROL 0.5-2.5 MG/3 ML AMPUL NEB PRN ×2 (12:02→20:54)
[2016-11-13] MEDS ORDERED: FUROSEMIDE INJ/PF 40 MG/4 ML SDV IV ONE (14:29)
--- NOTE | 2016-11-13 14:36 | PDOC PROGRESS REPORT ---
Subjective Progress Note for:: 11/13/16 Subjective:: No reported temperature spikes, nausea or vomiting, nor diarrhea. Patient had a PICC line placed. Chest x-ray shows questionable asymmetric edema. Patient having some intermittent chest congestion. Somehow improved this morning compared to yesterday. Ibuprofen this was decreased yesterday. Physical Exam Vital Signs: Temp Pulse Resp BP Pulse Ox 99.1 F 109 H 24 H 142/66 H 97 11/13/16 11:39 11/13/16 14:00 11/13/16 12:02 11/13/16 11:39 11/13/16 12:02 Intake & Output 11/12/16 11/13/16 11/14/16 06:59 06:59 06:59 Intake Total 6738 5986 1220 Output Total 3225 3350 0 Balance 3513 2636 1220 Weight 93.2 kg 92.7 kg General appearance: PRESENT: mild distress, other - Nonverbal and unresponsive Head exam: PRESENT: normocephalic Eye exam: PRESENT: conjunctiva pale Mouth exam: PRESENT: moist, neck supple Neck exam: ABSENT: JVD Respiratory exam: PRESENT: rhonchi - Scattered bilateral. ABSENT: wheezes Cardiovascular exam: PRESENT: RRR, tachycardia - Slightly GI/Abdominal exam: PRESENT: soft. ABSENT: distended, tenderness Extremities exam: PRESENT: other - Trace edema bilateral Neurological exam: PRESENT: altered - Patient is nonverbal, which is his baseline Psychiatric exam: ABSENT: agitated Focused psych exam: ABSENT: restlessness Skin exam: PRESENT: dry, warm. ABSENT: cyanosis Results Laboratory Results: 11/13/16 04:42 11/13/16 04:42 11/13/16 11/13/16 04:42 04:42 WBC 9.6 RBC 3.04 L Hgb 9.3 L Hct 27.7 L MCV 91 MCH 30.5 MCHC 33.5 RDW 15.0 H Plt Count 141 L Sodium 144.9 Potassium 3.9 Chloride 108 H Carbon Dioxide 29 Anion Gap 8 BUN 17 Creatinine 0.41 L Est GFR ( Amer) > 60 Est GFR (Non-Af Amer) > 60 Glucose 177 H Calcium 9.1 Impressions: Guidance Fluoroscopy 11/12/16 00:00 IMPRESSION: SUCCESSFUL PLACEMENT OF A 5 FR DUAL LUMEN 41 CM PICC IN THE LEFT BASILIC VEIN. Interventional Vascular Procedure 11/12/16 00:00 IMPRESSION: SUCCESSFUL PLACEMENT OF A 5 FR DUAL LUMEN 41 CM PICC IN THE LEFT BASILIC VEIN. PICC Line Insertion 11/12/16 00:00 IMPRESSION: SUCCESSFUL PLACEMENT OF A 5 FR DUAL LUMEN 41 CM PICC IN THE LEFT BASILIC VEIN. Chest X-Ray 11/12/16 10:33 IMPRESSION: Patchy right perihilar airspace disease asymmetric pulmonary edema versus pneumonia Assessment & Plan - Diagnosis (1) Pneumonia Qualifiers: Pneumonia type: due to unspecified organism Laterality: unspecified laterality Lung location: unspecified part of lung Qualified Code(s): J18.9 - Pneumonia, unspecified organism Is this a current diagnosis for this admission?: Yes (2) Sepsis Qualifiers: Sepsis type: sepsis due to unspecified organism Qualified Code(s): A41.9 - Sepsis, unspecified organism Is this a current diagnosis for this admission?: Yes (3) UTI (urinary tract infection) Qualifiers: Urinary tract infection type: site unspecified Hematuria presence: without hematuria Qualified Code(s): N39.0 - Urinary tract infection, site not specified Is this a current diagnosis for this admission?: Yes (4) Dehydration Is this a current diagnosis for this admission?: Yes (5) Hypercalcemia Is this a current diagnosis for this admission?: Yes (6) Dementia Qualifiers: Dementia type: unspecified type Dementia behavioral disturbance: without behavioral disturbance Qualified Code(s): F03.90 - Unspecified dementia without behavioral disturbance Is this a current diagnosis for this admission?: Yes (7) Thrombocytopenia Is this a current diagnosis for this admission?: Yes (8) Decubitus ulcer of coccygeal region, stage 2 Is this a current diagnosis for this admission?: Yes (9) Diabetes mellitus Qualifiers: Diabetes mellitus type: type 2 Diabetes mellitus complication status: with unspecified complications Diabetes mellitus 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 Qualified Code(s): E11.8 - Type 2 diabetes mellitus with unspecified complications; 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 Is this a current diagnosis for this admission?: Yes (10) Hyperlipidemia Qualifiers: Hyperlipidemia type: unspecified Qualified Code(s): E78.5 - Hyperlipidemia, unspecified Is this a current diagnosis for this admission?: Yes (11) Seizure disorder Is this a current diagnosis for this admission?: Yes (12) HTN (hypertension) Qualifiers: Hypertension type: essential hypertension Qualified Code(s): I10 - Essential (primary) hypertension Is this a current diagnosis for this admission?: Yes (13) Anemia of chronic disease Is this a current diagnosis for this admission?: Yes (14) History of stroke Is this a current diagnosis for this admission?: Yes - Time Time Spent with patient: 25-34 minutes - Plan Summary Plan Summary: The patient's antibiotic will be changed to carbapenem due to ESBL in the urine , and gram-positive bacteremia and enterococcus in the urine. We will give a dose of Lasix. We will continue tube feedings, discontinue may not be fluid. I will likewise discontinue the Norvasc but keep the BiDil and NEVILLE inhibitor. Continue supportive care. Possible transfer to [facility] in 24-48 hours.
[2016-11-13] MEDS: INSULIN GLARGINE,HUM.REC.ANLOG 300 UNIT/3 ML INSULN.PEN SUBCUT SCH (22:26)
[2016-11-14] MEDS: INSULIN LISPRO 100 UNIT/ML 3 ML VIAL SUBCUT PRN ×4 (01:15→23:25)
[2016-11-14] MEDS: DORIPENEM 500 MG in NORMAL SALINE 100 ML IV SCH ×3 (06:20→23:23)
[2016-11-14] MEDS: ISOSORB DINIT/HYDRALAZINE HCL 20-37.5 MG TABLET PEG SCH ×3 (06:20→23:22)
[2016-11-14] MEDS: GUAIFENESIN SYRP 200 MG/10 ML UDC PEG SCH ×4 (06:20→23:23)
[2016-11-14] MEDS: ENOXAPARIN SODIUM INJ 40 MG/0.4 ML DISP.SYRIN SUBCUT SCH (08:04)
[2016-11-14] MEDS: LEVETIRACETAM ORAL SOLN 500 MG/5 ML UDCUP PEG SCH ×2 (09:00→23:22)
[2016-11-14] MEDS: NORMAL SALINE 10 ML SDV (SCHEDULED) IV SCH ×2 (09:01→23:22)
[2016-11-14] MEDS: ZINC SULFATE 220 MG CAPSULE PEG SCH (09:01)
[2016-11-14] MEDS: LISINOPRIL 10 MG TABLET PEG SCH (09:02)
[2016-11-14] MEDS: ASCORBIC ACID 500 MG TABLET PEG SCH (09:02)
[2016-11-14] MEDS: FAMOTIDINE 20 MG TABLET PO SCH ×2 (09:02→23:22)
[2016-11-14] MEDS: LANSOPRAZOLE 15 MG TAB.RAP.DR PEG SCH (09:02)
[2016-11-14] MEDS: POLYETHYLENE GLYCOL 3350 POWDER 17 GM/1 PACKET PEG SCH (09:03)
[2016-11-14] MEDS: LACTULOSE SYRUP 20 GM/30 ML UDCUP PEG SCH ×2 (09:03→17:19)
--- NOTE | 2016-11-14 11:36 | PDOC PROGRESS REPORT ---
Subjective Progress Note for:: 11/14/16 Subjective:: Patient reportedly responded well to one dose of Lasix. Very good urine output. There is less congestion. No reported temperature spikes, diarrhea, nausea or vomiting. Tolerating tube feedings. Good residuals. Physical Exam Vital Signs: Temp Pulse Resp BP Pulse Ox 98.9 F 93 24 H 156/73 H 96 11/14/16 10:55 11/14/16 10:55 11/14/16 10:55 11/14/16 10:55 11/14/16 10:55 Intake & Output 11/13/16 11/14/16 11/15/16 06:59 06:59 06:59 Intake Total 5986 5867 369 Output Total 3350 5000 Balance 2636 867 369 Weight 92.7 kg 93.1 kg General appearance: PRESENT: no acute distress, other - Nonverbal Head exam: PRESENT: normocephalic Mouth exam: PRESENT: moist, neck supple Neck exam: ABSENT: JVD Respiratory exam: PRESENT: other - Transmitted sounds bilateral, air entry is good, expiratory rhonchi's without wheezing. Cardiovascular exam: PRESENT: RRR. ABSENT: gallop GI/Abdominal exam: PRESENT: soft. ABSENT: distended, tenderness Extremities exam: ABSENT: pedal edema Skin exam: PRESENT: dry, warm. ABSENT: cyanosis Results Laboratory Results: 11/13/16 04:42 11/13/16 04:42 Impressions: Guidance Fluoroscopy 11/12/16 00:00 IMPRESSION: SUCCESSFUL PLACEMENT OF A 5 FR DUAL LUMEN 41 CM PICC IN THE LEFT BASILIC VEIN. Interventional Vascular Procedure 11/12/16 00:00 IMPRESSION: SUCCESSFUL PLACEMENT OF A 5 FR DUAL LUMEN 41 CM PICC IN THE LEFT BASILIC VEIN. PICC Line Insertion 11/12/16 00:00 IMPRESSION: SUCCESSFUL PLACEMENT OF A 5 FR DUAL LUMEN 41 CM PICC IN THE LEFT BASILIC VEIN. Chest X-Ray 11/12/16 10:33 IMPRESSION: Patchy right perihilar airspace disease asymmetric pulmonary edema versus pneumonia Assessment & Plan - Diagnosis (1) Pneumonia Qualifiers: Pneumonia type: due to unspecified organism Laterality: unspecified laterality Lung location: unspecified part of lung Qualified Code(s): J18.9 - Pneumonia, unspecified organism Is this a current diagnosis for this admission?: Yes (2) Sepsis Qualifiers: Sepsis type: sepsis due to unspecified organism Qualified Code(s): A41.9 - Sepsis, unspecified organism Is this a current diagnosis for this admission?: Yes (3) UTI (urinary tract infection) Qualifiers: Urinary tract infection type: site unspecified Hematuria presence: without hematuria Qualified Code(s): N39.0 - Urinary tract infection, site not specified Is this a current diagnosis for this admission?: Yes (4) Dehydration Is this a current diagnosis for this admission?: Yes (5) Hypercalcemia Is this a current diagnosis for this admission?: Yes (6) Dementia Qualifiers: Dementia type: unspecified type Dementia behavioral disturbance: without behavioral disturbance Qualified Code(s): F03.90 - Unspecified dementia without behavioral disturbance Is this a current diagnosis for this admission?: Yes (7) Thrombocytopenia Is this a current diagnosis for this admission?: Yes (8) Decubitus ulcer of coccygeal region, stage 2 Is this a current diagnosis for this admission?: Yes (9) Diabetes mellitus Qualifiers: Diabetes mellitus type: type 2 Diabetes mellitus complication status: with unspecified complications Diabetes mellitus [facility] insulin use: unspecified [facility] insulin use status Qualified Code(s): E11.8 - Type 2 diabetes mellitus with unspecified complications; 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 Is this a current diagnosis for this admission?: Yes (10) Hyperlipidemia Qualifiers: Hyperlipidemia type: unspecified Qualified Code(s): E78.5 - Hyperlipidemia, unspecified Is this a current diagnosis for this admission?: Yes (11) Seizure disorder Is this a current diagnosis for this admission?: Yes (12) HTN (hypertension) Qualifiers: Hypertension type: essential hypertension Qualified Code(s): I10 - Essential (primary) hypertension Is this a current diagnosis for this admission?: Yes (13) Anemia of chronic disease Is this a current diagnosis for this admission?: Yes (14) History of stroke Is this a current diagnosis for this admission?: Yes - Time Time Spent with patient: 25-34 minutes - Plan Summary Plan Summary: We will give another dose of Lasix intravenously, perform deep nasotracheal suctioning oral suctioning as needed. Continue current antibiotics. Will likely need at least 10 days when transferred to [facility]. Possible transfer in the morning.
[2016-11-14] MEDS ORDERED: FUROSEMIDE INJ/PF 40 MG/4 ML SDV IV ONE (13:00)
[2016-11-14] MEDS: IPRATROPIUM/ALBUTEROL 0.5-2.5 MG/3 ML AMPUL NEB PRN (13:52)
[2016-11-14] MEDS: INSULIN GLARGINE,HUM.REC.ANLOG 300 UNIT/3 ML INSULN.PEN SUBCUT SCH (23:23)
[2016-11-15] MEDS: DORIPENEM 500 MG in NORMAL SALINE 100 ML IV SCH ×3 (06:26→22:01)
[2016-11-15] MEDS: GUAIFENESIN SYRP 200 MG/10 ML UDC PEG SCH ×3 (06:26→17:19)
[2016-11-15] MEDS: ISOSORB DINIT/HYDRALAZINE HCL 20-37.5 MG TABLET PEG SCH ×3 (06:26→22:00)
[2016-11-15] MEDS: ENOXAPARIN SODIUM INJ 40 MG/0.4 ML DISP.SYRIN SUBCUT SCH (07:30)
[2016-11-15] MEDS: INSULIN LISPRO 100 UNIT/ML 3 ML VIAL SUBCUT PRN ×3 (07:30→17:18)
[2016-11-15] MEDS: IPRATROPIUM/ALBUTEROL 0.5-2.5 MG/3 ML AMPUL NEB PRN ×2 (07:38→16:10)
[2016-11-15] MEDS: LISINOPRIL 10 MG TABLET PEG SCH (10:03)
[2016-11-15] MEDS: LANSOPRAZOLE 15 MG TAB.RAP.DR PEG SCH (10:04)
[2016-11-15] MEDS: FAMOTIDINE 20 MG TABLET PO SCH ×2 (10:04→22:00)
[2016-11-15] MEDS: ASCORBIC ACID 500 MG TABLET PEG SCH (10:04)
[2016-11-15] MEDS: LEVETIRACETAM ORAL SOLN 500 MG/5 ML UDCUP PEG SCH ×2 (10:05→22:00)
[2016-11-15] MEDS: ZINC SULFATE 220 MG CAPSULE PEG SCH (10:06)
[2016-11-15] MEDS: LACTULOSE SYRUP 20 GM/30 ML UDCUP PEG SCH ×2 (10:06→17:19)
[2016-11-15] MEDS: NORMAL SALINE 10 ML SDV (SCHEDULED) IV SCH ×2 (10:06→22:01)
[2016-11-15] MEDS: POLYETHYLENE GLYCOL 3350 POWDER 17 GM/1 PACKET PEG SCH (10:06)
--- NOTE | 2016-11-15 12:55 | PDOC PROGRESS REPORT ---
Subjective Progress Note for:: 11/15/16 Subjective:: There is less congestion today than yesterday family does not want the patient to transfer to rehabilitation today but agreed to transfer in the morning. No reported temperature spikes, diarrhea, nausea or vomiting. Tolerating tube feedings. Good residuals. No reported respiratory distress. Patient chronically on oxygen and Vazquez catheter. Physical Exam Vital Signs: Temp Pulse Resp BP Pulse Ox 98.4 F 86 22 H 108/46 L 95 11/15/16 08:26 11/15/16 10:00 11/15/16 08:26 11/15/16 08:26 11/15/16 08:26 Intake & Output 11/14/16 11/15/16 11/16/16 06:59 06:59 06:59 Intake Total 5867 4563 110 Output Total 5000 4200 Balance 867 363 110 Weight 93.1 kg 88.1 kg General appearance: PRESENT: no acute distress, other - Nonverbal Head exam: PRESENT: normocephalic Mouth exam: PRESENT: moist, neck supple Neck exam: ABSENT: JVD Respiratory exam: PRESENT: rhonchi - few, other - Air entry is good Cardiovascular exam: PRESENT: RRR. ABSENT: gallop GI/Abdominal exam: PRESENT: normal bowel sounds, soft. ABSENT: distended, tenderness Extremities exam: ABSENT: pedal edema Skin exam: PRESENT: dry, warm. ABSENT: cyanosis Results Laboratory Results: 11/13/16 04:42 11/13/16 04:42 Impressions: Guidance Fluoroscopy 11/12/16 00:00 IMPRESSION: SUCCESSFUL PLACEMENT OF A 5 FR DUAL LUMEN 41 CM PICC IN THE LEFT BASILIC VEIN. Interventional Vascular Procedure 11/12/16 00:00 IMPRESSION: SUCCESSFUL PLACEMENT OF A 5 FR DUAL LUMEN 41 CM PICC IN THE LEFT BASILIC VEIN. PICC Line Insertion 11/12/16 00:00 IMPRESSION: SUCCESSFUL PLACEMENT OF A 5 FR DUAL LUMEN 41 CM PICC IN THE LEFT BASILIC VEIN. Chest X-Ray 11/12/16 10:33 IMPRESSION: Patchy right perihilar airspace disease asymmetric pulmonary edema versus pneumonia Assessment & Plan - Diagnosis (1) Pneumonia Qualifiers: Pneumonia type: due to unspecified organism Laterality: unspecified laterality Lung location: unspecified part of lung Qualified Code(s): J18.9 - Pneumonia, unspecified organism Is this a current diagnosis for this admission?: Yes (2) Sepsis Qualifiers: Sepsis type: sepsis due to unspecified organism Qualified Code(s): A41.9 - Sepsis, unspecified organism Is this a current diagnosis for this admission?: Yes (3) UTI (urinary tract infection) Qualifiers: Urinary tract infection type: site unspecified Hematuria presence: without hematuria Qualified Code(s): N39.0 - Urinary tract infection, site not specified Is this a current diagnosis for this admission?: Yes (4) Dehydration Is this a current diagnosis for this admission?: Yes (5) Hypercalcemia Is this a current diagnosis for this admission?: Yes (6) Dementia Qualifiers: Dementia type: unspecified type Dementia behavioral disturbance: without behavioral disturbance Qualified Code(s): F03.90 - Unspecified dementia without behavioral disturbance Is this a current diagnosis for this admission?: Yes (7) Thrombocytopenia Is this a current diagnosis for this admission?: Yes (8) Decubitus ulcer of coccygeal region, stage 2 Is this a current diagnosis for this admission?: Yes (9) Diabetes mellitus Qualifiers: Diabetes mellitus type: type 2 Diabetes mellitus complication status: with unspecified complications Diabetes mellitus detention insulin use: unspecified detention insulin use status Qualified Code(s): E11.8 - Type 2 diabetes mellitus with unspecified complications; Z79.4 - long term care social worker (current) use of insulin Is this a current diagnosis for this admission?: Yes (10) Hyperlipidemia Qualifiers: Hyperlipidemia type: unspecified Qualified Code(s): E78.5 - Hyperlipidemia, unspecified Is this a current diagnosis for this admission?: Yes (11) Seizure disorder Is this a current diagnosis for this admission?: Yes (12) HTN (hypertension) Qualifiers: Hypertension type: essential hypertension Qualified Code(s): I10 - Essential (primary) hypertension Is this a current diagnosis for this admission?: Yes (13) Anemia of chronic disease Is this a current diagnosis for this admission?: Yes (14) History of stroke Is this a current diagnosis for this admission?: Yes - Time Time Spent with patient: Less than 15 minutes - Plan Summary Plan Summary: We will continue current antibiotics. Day 4 of carbapenem out of 14. Continue gentle feedings and supportive care. Continue as needed suctioning. Discussed at length with the family regarding issues of recurrent aspiration and she understood.
[2016-11-15] MEDS: INSULIN GLARGINE,HUM.REC.ANLOG 300 UNIT/3 ML INSULN.PEN SUBCUT SCH (22:01)
[2016-11-16] MEDS: GUAIFENESIN SYRP 200 MG/10 ML UDC PEG SCH ×5 (00:29→23:10)
[2016-11-16] MEDS: INSULIN LISPRO 100 UNIT/ML 3 ML VIAL SUBCUT PRN ×4 (00:57→18:56)
[2016-11-16] MEDS: ISOSORB DINIT/HYDRALAZINE HCL 20-37.5 MG TABLET PEG SCH ×3 (05:05→21:54)
[2016-11-16] MEDS: DORIPENEM 500 MG in NORMAL SALINE 100 ML IV SCH ×3 (05:05→22:01)
[2016-11-16] MEDS: IPRATROPIUM/ALBUTEROL 0.5-2.5 MG/3 ML AMPUL NEB PRN (07:56)
[2016-11-16] MEDS: LEVETIRACETAM ORAL SOLN 500 MG/5 ML UDCUP PEG SCH ×2 (11:30→21:55)
[2016-11-16] MEDS: LANSOPRAZOLE 15 MG TAB.RAP.DR PEG SCH (11:31)
[2016-11-16] MEDS: LISINOPRIL 10 MG TABLET PEG SCH (11:32)
[2016-11-16] MEDS: ASCORBIC ACID 500 MG TABLET PEG SCH (11:35)
[2016-11-16] MEDS: ZINC SULFATE 220 MG CAPSULE PEG SCH (11:35)
[2016-11-16] MEDS: FAMOTIDINE 20 MG TABLET PO SCH ×2 (11:35→21:54)
[2016-11-16] MEDS: NORMAL SALINE 10 ML SDV (SCHEDULED) IV SCH ×2 (11:36→21:58)
[2016-11-16] MEDS: NORMAL SALINE 10 ML SDV (AFTER EACH USE) IV PRN (11:36)
[2016-11-16] MEDS: LACTULOSE SYRUP 20 GM/30 ML UDCUP PEG SCH ×2 (11:49→18:33)
[2016-11-16] MEDS: POLYETHYLENE GLYCOL 3350 POWDER 17 GM/1 PACKET PEG SCH (11:49)
[2016-11-16] MEDS: ENOXAPARIN SODIUM INJ 40 MG/0.4 ML DISP.SYRIN SUBCUT SCH (11:49)
[2016-11-16 14:29] LABS: ANION GAP 10 (5-19); BLOOD UREA NITROGEN 33 mg/dL (7-20); CALCIUM 9.7 mg/dL (8.4-10.2); CARBON DIOXIDE 30 mmol/L (22-30); CHLORIDE 102 mmol/L (98-107); CREATININE RESULT 0.79 mg/dL (0.52-1.25); GLUCOSE 309 mg/dL (75-110); POTASSIUM 4.8 mmol/L (3.6-5.0); SODIUM 141.7 mmol/L (137-145)
--- NOTE | 2016-11-16 18:12 | PDOC PROGRESS REPORT ---
Subjective Progress Note for:: 11/16/16 Subjective:: There is less congestion today than yesterday but still with some reported congestion. No reported temperature spikes, diarrhea, nausea or vomiting. Tolerating tube feedings. Good residuals. No reported respiratory distress. Patient chronically on oxygen and Vazquez catheter. Physical Exam Vital Signs: Temp Pulse Resp BP Pulse Ox 98.6 F 88 18 161/86 H 95 11/16/16 15:13 11/16/16 15:24 11/16/16 15:24 11/16/16 15:13 11/16/16 15:24 Intake & Output 11/15/16 11/16/16 11/17/16 06:59 06:59 06:59 Intake Total 4563 5013 60 Output Total 4200 3500 Balance 363 1513 60 Weight 88.1 kg 90.2 kg General appearance: PRESENT: no acute distress, obese Head exam: PRESENT: normocephalic Mouth exam: PRESENT: moist Neck exam: ABSENT: JVD Respiratory exam: PRESENT: rhonchi - few. ABSENT: wheezes Cardiovascular exam: PRESENT: RRR. ABSENT: gallop GI/Abdominal exam: PRESENT: hypoactive bowel sounds, soft. ABSENT: distended Extremities exam: PRESENT: other - Trace lower extremity edema Neurological exam: PRESENT: altered Skin exam: PRESENT: dry, warm. ABSENT: cyanosis Results Laboratory Results: 11/13/16 04:42 11/16/16 14:00 11/16/16 14:00 Sodium 141.7 Potassium 4.8 Chloride 102 Carbon Dioxide 30 Anion Gap 10 BUN 33 H Creatinine 0.79 Est GFR ( Amer) > 60 Est GFR (Non-Af Amer) > 60 Glucose 309 H Calcium 9.7 Impressions: Guidance Fluoroscopy 11/12/16 00:00 IMPRESSION: SUCCESSFUL PLACEMENT OF A 5 FR DUAL LUMEN 41 CM PICC IN THE LEFT BASILIC VEIN. Interventional Vascular Procedure 11/12/16 00:00 IMPRESSION: SUCCESSFUL PLACEMENT OF A 5 FR DUAL LUMEN 41 CM PICC IN THE LEFT BASILIC VEIN. PICC Line Insertion 11/12/16 00:00 IMPRESSION: SUCCESSFUL PLACEMENT OF A 5 FR DUAL LUMEN 41 CM PICC IN THE LEFT BASILIC VEIN. Chest X-Ray 11/16/16 00:00 IMPRESSION: CARDIAC ENLARGEMENT. VASCULAR CONGESTION. Assessment & Plan - Diagnosis (1) Pneumonia Qualifiers: Pneumonia type: due to unspecified organism Laterality: unspecified laterality Lung location: unspecified part of lung Qualified Code(s): J18.9 - Pneumonia, unspecified organism Is this a current diagnosis for this admission?: Yes (2) Sepsis Qualifiers: Sepsis type: sepsis due to unspecified organism Qualified Code(s): A41.9 - Sepsis, unspecified organism Is this a current diagnosis for this admission?: Yes (3) UTI (urinary tract infection) Qualifiers: Urinary tract infection type: site unspecified Hematuria presence: without hematuria Qualified Code(s): N39.0 - Urinary tract infection, site not specified Is this a current diagnosis for this admission?: Yes (4) Dehydration Is this a current diagnosis for this admission?: Yes (5) Hypercalcemia Is this a current diagnosis for this admission?: Yes (6) Dementia Qualifiers: Dementia type: unspecified type Dementia behavioral disturbance: without behavioral disturbance Qualified Code(s): F03.90 - Unspecified dementia without behavioral disturbance Is this a current diagnosis for this admission?: Yes (7) Thrombocytopenia Is this a current diagnosis for this admission?: Yes (8) Decubitus ulcer of coccygeal region, stage 2 Is this a current diagnosis for this admission?: Yes (9) Diabetes mellitus Qualifiers: Diabetes mellitus type: type 2 Diabetes mellitus complication status: with unspecified complications Diabetes mellitus terminal press operator insulin use: unspecified shelter insulin use status Qualified Code(s): E11.8 - Type 2 diabetes mellitus with unspecified complications; Z79.4 - terminal press operator (current) use of insulin Is this a current diagnosis for this admission?: Yes (10) Hyperlipidemia Qualifiers: Hyperlipidemia type: unspecified Qualified Code(s): E78.5 - Hyperlipidemia, unspecified Is this a current diagnosis for this admission?: Yes (11) Seizure disorder Is this a current diagnosis for this admission?: Yes (12) HTN (hypertension) Qualifiers: Hypertension type: essential hypertension Qualified Code(s): I10 - Essential (primary) hypertension Is this a current diagnosis for this admission?: Yes (13) Anemia of chronic disease Is this a current diagnosis for this admission?: Yes (14) History of stroke Is this a current diagnosis for this admission?: Yes - Time Time Spent with patient: 25-34 minutes - Plan Summary Plan Summary: Begin intravenous Lasix. Continue tube feedings and antibiotics. Off continuous IV fluid. We will check an echocardiogram for ejection fraction.
[2016-11-16] MEDS: METOPROLOL TARTRATE 25 MG TABLET PO SCH (18:32)
[2016-11-16] MEDS: FUROSEMIDE INJ/PF 40 MG/4 ML SDV IV SCH (18:32)
[2016-11-16] MEDS: INSULIN GLARGINE,HUM.REC.ANLOG 300 UNIT/3 ML INSULN.PEN SUBCUT SCH (21:58)
[2016-11-17] MEDS: INSULIN LISPRO 100 UNIT/ML 3 ML VIAL SUBCUT PRN ×4 (00:51→18:24)
[2016-11-17] MEDS: DORIPENEM 500 MG in NORMAL SALINE 100 ML IV SCH ×3 (05:14→21:48)
[2016-11-17] MEDS: ISOSORB DINIT/HYDRALAZINE HCL 20-37.5 MG TABLET PEG SCH (05:56)
[2016-11-17] MEDS: METOPROLOL TARTRATE 25 MG TABLET PO SCH ×2 (05:57→17:15)
[2016-11-17] MEDS: FUROSEMIDE INJ/PF 40 MG/4 ML SDV IV SCH (05:57)
[2016-11-17] MEDS: GUAIFENESIN SYRP 200 MG/10 ML UDC PEG SCH ×3 (05:57→17:16)
[2016-11-17] MEDS: IPRATROPIUM/ALBUTEROL 0.5-2.5 MG/3 ML AMPUL NEB PRN ×2 (07:49→21:13)
[2016-11-17] MEDS: LISINOPRIL 10 MG TABLET PEG SCH (10:54)
[2016-11-17] MEDS: FAMOTIDINE 20 MG TABLET PO SCH ×2 (10:55→21:46)
[2016-11-17] MEDS: ASCORBIC ACID 500 MG TABLET PEG SCH (10:55)
[2016-11-17] MEDS: ZINC SULFATE 220 MG CAPSULE PEG SCH (10:55)
[2016-11-17] MEDS: LANSOPRAZOLE 15 MG TAB.RAP.DR PEG SCH (10:55)
[2016-11-17] MEDS: NORMAL SALINE 10 ML SDV (SCHEDULED) IV SCH ×2 (10:56→21:48)
[2016-11-17] MEDS: NORMAL SALINE 10 ML SDV (AFTER EACH USE) IV PRN (10:56)
[2016-11-17] MEDS: LEVETIRACETAM ORAL SOLN 500 MG/5 ML UDCUP PEG SCH ×2 (10:56→21:47)
[2016-11-17] MEDS: POLYETHYLENE GLYCOL 3350 POWDER 17 GM/1 PACKET PEG SCH (10:57)
[2016-11-17] MEDS: LACTULOSE SYRUP 20 GM/30 ML UDCUP PEG SCH ×2 (10:57→17:19)
[2016-11-17 12:55] LABS: ABSOLUTE BASOPHILS # (AUTO) 0.1 10^3/uL (0.0-0.2); ABSOLUTE EOSINOPHILS # (AUTO) 0.4 10^3/uL (0.0-0.6); ABSOLUTE LYMPHOCYTES (AUTO) 1.2 10^3/uL (0.5-4.7); ABSOLUTE MONOCYTES (AUTO) 0.9 10^3/uL (0.1-1.4); ABSOLUTE NEUT (AUTO) 9.9 10^3/uL (1.7-8.2); BASOPHILS % (AUTO) 0.4 % (0-2); EOSINOPHILS % (AUTO) 3.1 % (0-6); HEMATOCRIT 29.9 % (37.9-51.0); HEMOGLOBIN 9.9 g/dL (13.5-17.0); HGB HCT DIFFERENCE -0.2; LYMPHOCYTES % (AUTO) 9.9 % (13-45); MEAN CORPUSCULAR VOLUME 91 fl (80-97); MONOCYTES % (AUTO) 7.1 % (3-13); RED BLOOD COUNT 3.29 10^6/uL (4.35-5.55); RED CELL DISTRIBUTION WIDTH 15.4 % (11.5-14.0); SEGMENTED NEUTROPHILS % (AUTO) 79.5 % (42-78); WHITE BLOOD COUNT 12.5 10^3/uL (4.0-10.5)
--- NOTE | 2016-11-17 14:32 | PDOC PROGRESS REPORT ---
Subjective Progress Note for:: 11/17/16 Subjective:: Patient remains overall in the same state. No worsening respiratory distress reported. Still with intermittent chest congestion. No reported temperature spikes, nausea or vomiting, diarrhea. Patient chronically bedbound, nonverbal. Blood pressure reported on the low-normal side. Physical Exam Vital Signs: Temp Pulse Resp BP Pulse Ox 98.6 F 86 18 101/39 L 98 11/17/16 11:27 11/17/16 11:27 11/17/16 11:27 11/17/16 11:27 11/17/16 11:27 Intake & Output 11/16/16 11/17/16 11/18/16 06:59 06:59 06:59 Intake Total 5013 3245 Output Total 3500 1625 Balance 1513 1620 Weight 90.2 kg 89.2 kg General appearance: PRESENT: no acute distress, obese Head exam: PRESENT: normocephalic Mouth exam: PRESENT: moist, neck supple Neck exam: ABSENT: JVD Respiratory exam: PRESENT: rhonchi - Bilateral, other - Air entry is good Cardiovascular exam: PRESENT: RRR. ABSENT: gallop GI/Abdominal exam: PRESENT: soft. ABSENT: distended, tenderness Extremities exam: PRESENT: pedal edema - Trace bilateral Neurological exam: PRESENT: altered Psychiatric exam: ABSENT: agitated Focused psych exam: ABSENT: restlessness Skin exam: PRESENT: dry, warm. ABSENT: cyanosis Results Laboratory Results: 11/17/16 12:45 11/16/16 14:00 11/16/16 11/17/16 14:00 12:45 WBC 12.5 H RBC 3.29 L Hgb 9.9 L Hct 29.9 L MCV 91 MCH 30.0 MCHC 33.0 RDW 15.4 H Plt Count 247 Seg Neutrophils % 79.5 H Lymphocytes % 9.9 L Monocytes % 7.1 Eosinophils % 3.1 Basophils % 0.4 Absolute Neutrophils 9.9 H Absolute Lymphocytes 1.2 Absolute Monocytes 0.9 Absolute Eosinophils 0.4 Absolute Basophils 0.1 Sodium 141.7 Potassium 4.8 Chloride 102 Carbon Dioxide 30 Anion Gap 10 BUN 33 H Creatinine 0.79 Est GFR ( Amer) > 60 Est GFR (Non-Af Amer) > 60 Glucose 309 H Calcium 9.7 Impressions: Guidance Fluoroscopy 11/12/16 00:00 IMPRESSION: SUCCESSFUL PLACEMENT OF A 5 FR DUAL LUMEN 41 CM PICC IN THE LEFT BASILIC VEIN. Interventional Vascular Procedure 11/12/16 00:00 IMPRESSION: SUCCESSFUL PLACEMENT OF A 5 FR DUAL LUMEN 41 CM PICC IN THE LEFT BASILIC VEIN. PICC Line Insertion 11/12/16 00:00 IMPRESSION: SUCCESSFUL PLACEMENT OF A 5 FR DUAL LUMEN 41 CM PICC IN THE LEFT BASILIC VEIN. Chest X-Ray 11/16/16 00:00 IMPRESSION: CARDIAC ENLARGEMENT. VASCULAR CONGESTION. Assessment & Plan - Diagnosis (1) Pneumonia Qualifiers: Pneumonia type: due to unspecified organism Laterality: unspecified laterality Lung location: unspecified part of lung Qualified Code(s): J18.9 - Pneumonia, unspecified organism Is this a current diagnosis for this admission?: Yes (2) Sepsis Qualifiers: Sepsis type: sepsis due to unspecified organism Qualified Code(s): A41.9 - Sepsis, unspecified organism Is this a current diagnosis for this admission?: Yes (3) UTI (urinary tract infection) Qualifiers: Urinary tract infection type: site unspecified Hematuria presence: without hematuria Qualified Code(s): N39.0 - Urinary tract infection, site not specified Is this a current diagnosis for this admission?: Yes (4) Dehydration Is this a current diagnosis for this admission?: Yes (5) Hypercalcemia Is this a current diagnosis for this admission?: Yes (6) Dementia Qualifiers: Dementia type: unspecified type Dementia behavioral disturbance: without behavioral disturbance Qualified Code(s): F03.90 - Unspecified dementia without behavioral disturbance Is this a current diagnosis for this admission?: Yes (7) Thrombocytopenia Is this a current diagnosis for this admission?: Yes (8) Decubitus ulcer of coccygeal region, stage 2 Is this a current diagnosis for this admission?: Yes (9) Diabetes mellitus Qualifiers: Diabetes mellitus type: type 2 Diabetes mellitus complication status: with unspecified complications 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 animal 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 insulin use: unspecified senior living insulin use status Qualified Code(s): E11.8 - Type 2 diabetes mellitus with unspecified complications; Z79.4 - predatory animal 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 (current) use of insulin Is this a current diagnosis for this admission?: Yes (10) Hyperlipidemia Qualifiers: Hyperlipidemia type: unspecified Qualified Code(s): E78.5 - Hyperlipidemia, unspecified Is this a current diagnosis for this admission?: Yes (11) Seizure disorder Is this a current diagnosis for this admission?: Yes (12) HTN (hypertension) Qualifiers: Hypertension type: essential hypertension Qualified Code(s): I10 - Essential (primary) hypertension Is this a current diagnosis for this admission?: Yes (13) Anemia of chronic disease Is this a current diagnosis for this admission?: Yes (14) History of stroke Is this a current diagnosis for this admission?: Yes - Time Time Spent with patient: 25-34 minutes - Plan Summary Plan Summary: We will continue beta héctor. Awaiting echocardiogram. We will decrease intravenous Lasix. We will likewise decrease NEVILLE inhibitor and BiDil dose.
[2016-11-17] MEDS: ENOXAPARIN SODIUM INJ 40 MG/0.4 ML DISP.SYRIN SUBCUT SCH (14:53)
[2016-11-17] MEDS: INSULIN GLARGINE,HUM.REC.ANLOG 300 UNIT/3 ML INSULN.PEN SUBCUT SCH (21:46)
[2016-11-17] MEDS ORDERED: ISOSORB DINIT/HYDRALAZINE HCL 20-37.5 MG TABLET PEG SCH (22:00)
[2016-11-18] MEDS: GUAIFENESIN SYRP 200 MG/10 ML UDC PEG SCH ×4 (00:16→17:15)
[2016-11-18] MEDS: INSULIN LISPRO 100 UNIT/ML 3 ML VIAL SUBCUT PRN ×4 (00:16→11:31)
[2016-11-18] MEDS: DORIPENEM 500 MG in NORMAL SALINE 100 ML IV SCH ×3 (05:22→22:41)
[2016-11-18] MEDS: METOPROLOL TARTRATE 25 MG TABLET PO SCH ×2 (05:59→17:16)
[2016-11-18] MEDS: ENOXAPARIN SODIUM INJ 40 MG/0.4 ML DISP.SYRIN SUBCUT SCH (07:38)
[2016-11-18] MEDS: IPRATROPIUM/ALBUTEROL 0.5-2.5 MG/3 ML AMPUL NEB PRN ×2 (07:54→21:18)
[2016-11-18] MEDS: FUROSEMIDE INJ/PF 40 MG/4 ML SDV IV SCH (09:30)
[2016-11-18] MEDS: LANSOPRAZOLE 15 MG TAB.RAP.DR PEG SCH (09:31)
[2016-11-18] MEDS: FAMOTIDINE 20 MG TABLET PO SCH ×2 (09:31→22:40)
[2016-11-18] MEDS: ASCORBIC ACID 500 MG TABLET PEG SCH (09:31)
[2016-11-18] MEDS: LISINOPRIL 10 MG TABLET PEG SCH (09:31)
[2016-11-18] MEDS: LEVETIRACETAM ORAL SOLN 500 MG/5 ML UDCUP PEG SCH ×2 (09:32→22:39)
[2016-11-18] MEDS: POLYETHYLENE GLYCOL 3350 POWDER 17 GM/1 PACKET PEG SCH (09:32)
[2016-11-18] MEDS: LACTULOSE SYRUP 20 GM/30 ML UDCUP PEG SCH ×2 (09:32→17:16)
[2016-11-18] MEDS: ZINC SULFATE 220 MG CAPSULE PEG SCH (09:32)
[2016-11-18] MEDS: NORMAL SALINE 10 ML SDV (SCHEDULED) IV SCH ×2 (09:32→22:41)
--- NOTE | 2016-11-18 16:24 | PDOC PROGRESS REPORT ---
Subjective Progress Note for:: 11/18/16 Subjective:: There is no deterioration in patient's respiration. Family still not wanting the patient to return back to the group home. There is no reported temperature spikes, diarrhea, respiratory distress. Patient occasionally moans. Chest congestion is much better. Patient is nonverbal. Episode of urinary retention, where the Vazquez was changed, and eventually prior one was clogged. Physical Exam Vital Signs: Temp Pulse Resp BP Pulse Ox 98.4 F 74 19 125/63 100 11/18/16 15:15 11/18/16 15:15 11/18/16 15:15 11/18/16 15:15 11/18/16 15:15 Intake & Output 11/17/16 11/18/16 11/19/16 06:59 06:59 06:59 Intake Total 3245 3431 200 Output Total 1625 3200 1400 Balance 1620 231 -1200 Weight 89.2 kg 87.4 kg General appearance: PRESENT: no acute distress, other - Nonverbal Head exam: PRESENT: normocephalic Eye exam: PRESENT: conjunctiva pale Mouth exam: PRESENT: moist Neck exam: ABSENT: JVD Respiratory exam: PRESENT: rhonchi - Bilateral/transmitted sounds bilateral Cardiovascular exam: PRESENT: RRR. ABSENT: gallop GI/Abdominal exam: PRESENT: hypoactive bowel sounds, soft. ABSENT: distended Extremities exam: ABSENT: pedal edema Skin exam: PRESENT: dry, warm. ABSENT: cyanosis Results Laboratory Results: 11/17/16 12:45 11/16/16 14:00 Impressions: Guidance Fluoroscopy 11/12/16 00:00 IMPRESSION: SUCCESSFUL PLACEMENT OF A 5 FR DUAL LUMEN 41 CM PICC IN THE LEFT BASILIC VEIN. Interventional Vascular Procedure 11/12/16 00:00 IMPRESSION: SUCCESSFUL PLACEMENT OF A 5 FR DUAL LUMEN 41 CM PICC IN THE LEFT BASILIC VEIN. PICC Line Insertion 11/12/16 00:00 IMPRESSION: SUCCESSFUL PLACEMENT OF A 5 FR DUAL LUMEN 41 CM PICC IN THE LEFT BASILIC VEIN. Chest X-Ray 11/16/16 00:00 IMPRESSION: CARDIAC ENLARGEMENT. VASCULAR CONGESTION. Assessment & Plan - Diagnosis (1) Pneumonia Qualifiers: Pneumonia type: due to unspecified organism Laterality: unspecified laterality Lung location: unspecified part of lung Qualified Code(s): J18.9 - Pneumonia, unspecified organism Is this a current diagnosis for this admission?: Yes (2) Sepsis Qualifiers: Sepsis type: sepsis due to unspecified organism Qualified Code(s): A41.9 - Sepsis, unspecified organism Is this a current diagnosis for this admission?: Yes (3) UTI (urinary tract infection) Qualifiers: Urinary tract infection type: site unspecified Hematuria presence: without hematuria Qualified Code(s): N39.0 - Urinary tract infection, site not specified Is this a current diagnosis for this admission?: Yes (4) Dehydration Is this a current diagnosis for this admission?: Yes (5) Hypercalcemia Is this a current diagnosis for this admission?: Yes (6) Dementia Qualifiers: Dementia type: unspecified type Dementia behavioral disturbance: without behavioral disturbance Qualified Code(s): F03.90 - Unspecified dementia without behavioral disturbance Is this a current diagnosis for this admission?: Yes (7) Thrombocytopenia Is this a current diagnosis for this admission?: Yes (8) Decubitus ulcer of coccygeal region, stage 2 Is this a current diagnosis for this admission?: Yes (9) Diabetes mellitus Qualifiers: Diabetes mellitus type: type 2 Diabetes mellitus complication status: with unspecified complications Diabetes mellitus director long term care insulin use: unspecified director long term care insulin use status Qualified Code(s): E11.8 - Type 2 diabetes mellitus with unspecified complications; Z79.4 - [facility] (current) use of insulin Is this a current diagnosis for this admission?: Yes (10) Hyperlipidemia Qualifiers: Hyperlipidemia type: unspecified Qualified Code(s): E78.5 - Hyperlipidemia, unspecified Is this a current diagnosis for this admission?: Yes (11) Seizure disorder Is this a current diagnosis for this admission?: Yes (12) HTN (hypertension) Qualifiers: Hypertension type: essential hypertension Qualified Code(s): I10 - Essential (primary) hypertension Is this a current diagnosis for this admission?: Yes (13) Anemia of chronic disease Is this a current diagnosis for this admission?: Yes (14) History of stroke Is this a current diagnosis for this admission?: Yes - Time Time Spent with patient: 15-24 minutes - Plan Summary Plan Summary: Day 7 of doripenem. Complete a total of 2 weeks. The echocardiogram shows a normal ejection fraction, probably can be transferred back to the group home in the morning. Lasix can be discontinued. Oral secretions needs to be suctioned when necessary. Continue other medications and supportive care for now. Awaiting results of echocardiogram. Has chronic indwelling Vazquez catheter. No prior history of ESBL UTI.
--- NOTE | 2016-11-18 20:13 | XCELERA REPORT ---
[address] [address] Transthoracic Echocardiogram Report Name: THAD JOY Age: 75 yrs Gender: Male : 1940 Patient Status: Inpatient Patient Location: [id number] Study Date: 11/18/2016 01:07 PM Height: 66 in Weight: 196 lb BSA: 2.0 m2 Procedure: A complete two-dimensional transthoracic echocardiogram was performed (2D, M-mode, spectral and color flow Doppler). The study was technically difficult with many images being suboptimal in quality. Reason For Study: chf Ordering Physician: GAVIN RICHTER Performed By: Melissa Mendez Interpretation Summary The study was technically difficult with many images being suboptimal in quality. The left ventricular ejection fraction is preserved. Doppler measurements suggest pseudonormalized left ventricular relaxation, which is associated with grade II/IV or mild to moderate diastolic dysfunction There is borderline concentric left ventricular hypertrophy. The left ventricle is grossly normal size. Wall motion cannot be accurately commented on, but no definite regional wall motion abnormalities noted. The right ventricular systolic function is normal. The left atrial size is normal. The right atrium is normal in size There is a trace amount of mitral regurgitation There is no mitral valve stenosis. No aortic regurgitation is present. There is no aortic valve stenosis There is a trace or physiologic amount of tricuspid regurgitation Tricuspid regurgitation jet envelope not well defined to measure RV systolic pressure accurately. There is no tricuspid stenosis. The aortic root is not well visualized. The inferior vena cava appeared normal and decreased > 50% with respiration (RAP 5-10 mmHg) There is no pericardial effusion. MMode/2D Measurements \T\ Calculations RVDd: 2.5 cm LVIDd: 4.6 cm FS: 43.0 % Ao root diam: 3.4 cm IVSd: 0.86 cm LVIDs: 2.6 cm EDV(Teich): 95.7 ml LVPWd: 0.95 cmESV(Teich): 24.6 ml Ao root area: 8.8 cm2 EF(Teich): 74.3 % LA dimension: 3.1 cm LVOT diam: 1.8 cm LVOT area: 2.5 cm2 Doppler Measurements \T\ Calculations MV E max migel: MV P1/2t max migel: Ao V2 max: LV V1 max P.7 cm/sec 67.2 cm/sec 137.8 cm/sec 7.1 mmHg MV A max migel: MV P1/2t: 82.3 msec Ao max PG: LV V1 max: 101.5 cm/sec MVA(P1/2t): 2.7 cm2 7.6 mmHg 133.7 cm/sec MV E/A: 0.61 MV dec slope: ZONIA(V,D): 2.4 cm2 239.1 cm/sec2 PA V2 max: 58.3 cm/sec PA max P.4 mmHg Left Ventricle The left ventricle is grossly normal size. There is borderline concentric left ventricular hypertrophy. The left ventricular ejection fraction is preserved. Doppler measurements suggest pseudonormalized left ventricular relaxation, which is associated with grade II/IV or mild to moderate diastolic dysfunction. Wall motion cannot be accurately commented on, but no definite regional wall motion abnormalities noted. Right Ventricle The right ventricle is grossly normal size. There is normal right ventricular wall thickness. The right ventricular systolic function is normal. Atria The right atrium is normal in size. The left atrial size is normal. Interarterial septum not well visualized and not well dopplered. Cannot comment on ASD/PFO presence. Mitral Valve There is mild mitral leaflet calcification. There is no mitral valve stenosis. There is a trace amount of mitral regurgitation. Aortic Valve The aortic valve is not well visualized secondary to technical limitations. There is no aortic valve stenosis. No aortic regurgitation is present. Tricuspid Valve The tricuspid valve is not well visualized secondary to technical limitations. There is no tricuspid stenosis. There is a trace or physiologic amount of tricuspid regurgitation. Tricuspid regurgitation jet envelope not well defined to measure RV systolic pressure accurately. Pulmonic Valve The pulmonic valve is not well visualized. Great Vessels The aortic root is not well visualized. The inferior vena cava appeared normal and decreased > 50% with respiration (RAP 5-10 mmHg). Effusions There is no pericardial effusion. : GAVIN RICHTER Shyamal
[2016-11-18] MEDS: INSULIN GLARGINE,HUM.REC.ANLOG 300 UNIT/3 ML INSULN.PEN SUBCUT SCH (22:58)
[2016-11-19] MEDS: GUAIFENESIN SYRP 200 MG/10 ML UDC PEG SCH ×4 (00:20→17:07)
[2016-11-19] MEDS: INSULIN LISPRO 100 UNIT/ML 3 ML VIAL SUBCUT PRN (06:52)
[2016-11-19] MEDS: METOPROLOL TARTRATE 25 MG TABLET PO SCH ×2 (06:55→17:07)
[2016-11-19] MEDS: DORIPENEM 500 MG in NORMAL SALINE 100 ML IV SCH ×3 (06:59→22:58)
[2016-11-19] MEDS: NORMAL SALINE 10 ML SDV (AFTER EACH USE) IV PRN (09:52)
[2016-11-19] MEDS: NORMAL SALINE 10 ML SDV (SCHEDULED) IV SCH ×2 (09:52→22:56)
[2016-11-19] MEDS: FAMOTIDINE 20 MG TABLET PO SCH ×2 (09:53→22:56)
[2016-11-19] MEDS: LISINOPRIL 10 MG TABLET PEG SCH (09:53)
[2016-11-19] MEDS: LANSOPRAZOLE 15 MG TAB.RAP.DR PEG SCH (09:54)
[2016-11-19] MEDS: LEVETIRACETAM ORAL SOLN 500 MG/5 ML UDCUP PEG SCH ×2 (10:00→22:57)
[2016-11-19] MEDS: ZINC SULFATE 220 MG CAPSULE PEG SCH (10:00)
[2016-11-19] MEDS: FUROSEMIDE INJ/PF 40 MG/4 ML SDV IV SCH (10:00)
[2016-11-19] MEDS: ASCORBIC ACID 500 MG TABLET PEG SCH (10:00)
[2016-11-19] MEDS: ENOXAPARIN SODIUM INJ 40 MG/0.4 ML DISP.SYRIN SUBCUT SCH (10:01)
[2016-11-19] MEDS: POLYETHYLENE GLYCOL 3350 POWDER 17 GM/1 PACKET PEG SCH (10:28)
[2016-11-19] MEDS: LACTULOSE SYRUP 20 GM/30 ML UDCUP PEG SCH ×2 (10:28→17:08)
--- NOTE | 2016-11-19 10:51 | PDOC PROGRESS REPORT ---
Subjective Progress Note for:: 11/19/16 Subjective:: Patient is nonverbal. Physical Exam Vital Signs: Temp Pulse Resp BP Pulse Ox 98.4 F 60 18 144/86 H 97 11/19/16 07:30 11/19/16 09:00 11/19/16 09:00 11/19/16 07:30 11/19/16 07:30 Intake & Output 11/18/16 11/19/16 11/20/16 06:59 06:59 06:59 Intake Total 3431 3773 Output Total 3200 3500 Balance 231 273 Weight 87.4 kg 85.4 kg General appearance: PRESENT: no acute distress Eye exam: PRESENT: conjunctiva pink. ABSENT: scleral icterus Mouth exam: PRESENT: moist, tongue midline Neck exam: ABSENT: JVD Respiratory exam: PRESENT: rhonchi - Coarse rhonchi bilaterally. Cardiovascular exam: PRESENT: RRR. ABSENT: diastolic murmur, rubs, systolic murmur GI/Abdominal exam: PRESENT: normal bowel sounds, soft. ABSENT: distended, guarding, mass, organolmegaly, rebound, tenderness Extremities exam: PRESENT: full ROM. ABSENT: calf tenderness, clubbing, pedal edema Neurological exam: PRESENT: awake. ABSENT: oriented to person, oriented to place, oriented to time, oriented to situation Psychiatric exam: PRESENT: flat affect Skin exam: PRESENT: other - Sacral decubitus stage II with packing in place. Results Laboratory Results: 11/17/16 12:45 11/16/16 14:00 Impressions: Guidance Fluoroscopy 11/12/16 00:00 IMPRESSION: SUCCESSFUL PLACEMENT OF A 5 FR DUAL LUMEN 41 CM PICC IN THE LEFT BASILIC VEIN. Interventional Vascular Procedure 11/12/16 00:00 IMPRESSION: SUCCESSFUL PLACEMENT OF A 5 FR DUAL LUMEN 41 CM PICC IN THE LEFT BASILIC VEIN. PICC Line Insertion 11/12/16 00:00 IMPRESSION: SUCCESSFUL PLACEMENT OF A 5 FR DUAL LUMEN 41 CM PICC IN THE LEFT BASILIC VEIN. Chest X-Ray 11/16/16 00:00 IMPRESSION: CARDIAC ENLARGEMENT. VASCULAR CONGESTION. Assessment & Plan - Diagnosis (1) Sepsis Qualifiers: Sepsis type: sepsis due to unspecified organism Qualified Code(s): A41.9 - Sepsis, unspecified organism Is this a current diagnosis for this admission?: YesPlan: Growing Escherichia coli ESBL from culture. Will get a total of 2 weeks of doripenem (2) UTI (urinary tract infection) Qualifiers: Urinary tract infection type: site unspecified Hematuria presence: without hematuria Qualified Code(s): N39.0 - Urinary tract infection, site not specified Is this a current diagnosis for this admission?: YesPlan: Patient has a chronic indwelling Vazquez. Continue antibiotics for total of 2 weeks. (3) Pneumonia Qualifiers: Pneumonia type: due to unspecified organism Laterality: unspecified laterality Lung location: unspecified part of lung Qualified Code(s): J18.9 - Pneumonia, unspecified organism Is this a current diagnosis for this admission?: YesPlan: Clinically resolved. 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 Blood sugars have ranged from 146-202 (5) Hyperlipidemia Qualifiers: Hyperlipidemia type: unspecified Qualified Code(s): E78.5 - Hyperlipidemia, unspecified Is this a current diagnosis for this admission?: Yes (6) Dementia Qualifiers: Dementia type: unspecified type Dementia behavioral disturbance: without behavioral disturbance Qualified Code(s): F03.90 - Unspecified dementia without behavioral disturbance Is this a current diagnosis for this admission?: YesPlan: Patient at baseline does not answer questions or interact. (7) Seizure disorder Is this a current diagnosis for this admission?: YesPlan: We'll continue his outpatient antiepileptic regimen. (8) G tube feedings Is this a current diagnosis for this admission?: YesPlan: Patient has been getting Glucerna 1.2 at 80 mL per hour with water flushes 250 mL every 6 hours. (9) HTN (hypertension) Qualifiers: Hypertension type: essential hypertension Qualified Code(s): I10 - Essential (primary) hypertension Is this a current diagnosis for this admission?: Yes (10) Osteomyelitis Is this a current diagnosis for this admission?: YesPlan: Patient has a history of osteomyelitis of the sacrum. He still has a small area skin breakdown her sacrum but does not appear to be involving the bone at this time. (11) Decubitus ulcer of coccygeal region, stage 2 Is this a current diagnosis for this admission?: YesPlan: We'll do wet-to-dry dressings and a small area approximately 1 cm of the coccygeal area (12) History of cerebral hemorrhage Is this a current diagnosis for this admission?: Yes (13) Full code status Is this a current diagnosis for this admission?: YesPlan: Daughter wants him to be a full code. - Time Time Spent with patient: 25-34 minutes - Plan Summary Plan Summary: Patient has improved, we can hopefully discharged [facility] to [facility] to complete his antibiotic therapy there.
[2016-11-19] MEDS: INSULIN GLARGINE,HUM.REC.ANLOG 300 UNIT/3 ML INSULN.PEN SUBCUT SCH (22:58)
[2016-11-20] MEDS: GUAIFENESIN SYRP 200 MG/10 ML UDC PEG SCH ×3 (00:19→11:03)
[2016-11-20] MEDS: METOPROLOL TARTRATE 25 MG TABLET PO SCH (06:20)
[2016-11-20] MEDS: DORIPENEM 500 MG in NORMAL SALINE 100 ML IV SCH ×2 (06:22→14:40)
[2016-11-20 07:09] LABS: ABSOLUTE EOSINOPHILS # (AUTO) 0.5 10^3/uL (0.0-0.6); ABSOLUTE LYMPHOCYTES (AUTO) 1.2 10^3/uL (0.5-4.7); ABSOLUTE MONOCYTES (AUTO) 0.5 10^3/uL (0.1-1.4); ABSOLUTE NEUT (AUTO) 3.6 10^3/uL (1.7-8.2); BASOPHILS % (AUTO) 0.6 % (0-2); HEMATOCRIT 32.3 % (37.9-51.0); HEMOGLOBIN 10.7 g/dL (13.5-17.0); HGB HCT DIFFERENCE -0.2; LYMPHOCYTES % (AUTO) 20.9 % (13-45); MEAN CORPUSCULAR HEMOGLOBIN 30.1 pg (27.0-33.4); MEAN CORPUSCULAR HGB CONC 33.1 g/dL (32.0-36.0); MEAN CORPUSCULAR VOLUME 91 fl (80-97); RED BLOOD COUNT 3.55 10^6/uL (4.35-5.55); RED CELL DISTRIBUTION WIDTH 15.2 % (11.5-14.0); SEGMENTED NEUTROPHILS % (AUTO) 61.5 % (42-78); WHITE BLOOD COUNT 5.8 10^3/uL (4.0-10.5)
[2016-11-20 07:26] LABS: ANION GAP 10 (5-19); BLOOD UREA NITROGEN 25 mg/dL (7-20); CALCIUM 9.4 mg/dL (8.4-10.2); CARBON DIOXIDE 31 mmol/L (22-30); CHLORIDE 104 mmol/L (98-107); CREATININE RESULT 0.48 mg/dL (0.52-1.25); GLUCOSE 144 mg/dL (75-110); POTASSIUM 4.6 mmol/L (3.6-5.0); SODIUM 145.1 mmol/L (137-145)
[2016-11-20] MEDS: ENOXAPARIN SODIUM INJ 40 MG/0.4 ML DISP.SYRIN SUBCUT SCH (08:44)
[2016-11-20] MEDS: INSULIN LISPRO 100 UNIT/ML 3 ML VIAL SUBCUT PRN (08:47)
[2016-11-20] MEDS: LEVETIRACETAM ORAL SOLN 500 MG/5 ML UDCUP PEG SCH (11:03)
[2016-11-20] MEDS: LACTULOSE SYRUP 20 GM/30 ML UDCUP PEG SCH (11:03)
[2016-11-20] MEDS: LANSOPRAZOLE 15 MG TAB.RAP.DR PEG SCH (11:04)
[2016-11-20] MEDS: ZINC SULFATE 220 MG CAPSULE PEG SCH (11:04)
[2016-11-20] MEDS: FUROSEMIDE INJ/PF 40 MG/4 ML SDV IV SCH (11:04)
[2016-11-20] MEDS: LISINOPRIL 10 MG TABLET PEG SCH (11:04)
[2016-11-20] MEDS: ASCORBIC ACID 500 MG TABLET PEG SCH (11:04)
[2016-11-20] MEDS: NORMAL SALINE 10 ML SDV (SCHEDULED) IV SCH (11:05)
[2016-11-20] MEDS: FAMOTIDINE 20 MG TABLET PO SCH (11:05)
[2016-11-20] MEDS: NORMAL SALINE 10 ML SDV (AFTER EACH USE) IV PRN (11:05)
--- NOTE | 2016-11-20 12:17 | PDOC TRANSFER SUMMARY ---
General - Admit/Disc Date/PCP Admission Date/Primary Care Provider: 11/09/16 11:21 SHEFALI BAGLEY MD Discharge Date: 11/20/16 - Discharge Diagnosis (1) Sepsis Is this a current diagnosis for this admission?: YesSummary: Source is a urinary tract infection with Escherichia coli that is extended spectrum beta-lactamase resistant (2) UTI (urinary tract infection) Is this a current diagnosis for this admission?: YesSummary: With Escherichia coli that is extended spectrum beta-lactamase resistant. (3) Pneumonia Is this a current diagnosis for this admission?: YesSummary: There was initially concern that she may have pneumonia however repeat chest x- ray did not document any pneumonia. (4) Diabetes mellitus Is this a current diagnosis for this admission?: Yes (5) Hyperlipidemia Is this a current diagnosis for this admission?: Yes (6) Dementia Is this a current diagnosis for this admission?: Yes (7) Seizure disorder Is this a current diagnosis for this admission?: Yes (8) G tube feedings Is this a current diagnosis for this admission?: Yes (9) HTN (hypertension) Is this a current diagnosis for this admission?: Yes (10) Osteomyelitis Is this a current diagnosis for this admission?: YesSummary: Patient prior to this hospitalization had completed a six-week course of antibiotics for osteomyelitis of the sacrum. There is no evidence for recurrence of this. (11) Decubitus ulcer of coccygeal region, stage 2 Is this a current diagnosis for this admission?: Yes (12) History of cerebral hemorrhage Is this a current diagnosis for this admission?: Yes (13) Full code status Is this a current diagnosis for this admission?: Yes - Additional Information Resuscitation Status: Full Code Discharge Diet: Tube Feeding (Comments) - Glucerna 1.2 at 80 ML per hour, flush with the 125 mL of water every 4 hours. Discharge Activity: Activity As Tolerated Home Medications: Ascorbic Acid [Vitamin C 500 mg Tablet] 500 mg PEG DAILY 11/09/16 Cranberry Extract [Cranberry 200 mg Capsule] 400 mg PEG DAILY 11/09/16 Guaifenesin [Tussin] 15 ml PEG Q6H 11/09/16 Lactulose [Constulose 10 gm/15 mL Oral Solution] 30 ml PEG BID 11/09/16 Levetiracetam 750 mg PEG BID 11/09/16 Nitroglycerin [Nitrostat] 0.4 mg SL Q3M 11/09/16 Omeprazole 20 mg PEG DAILY 11/09/16 Polyethylene Glycol 3350 [Miralax Powder 17 gm/Packet] 17 gm PEG DAILY 11/09/16 Zinc Sulfate [Zinc-220 Capsule] 220 mg PEG DAILY 11/09/16 Acetaminophen [Tylenol 325 mg Tablet] 650 mg PEG Q4HP PRN tablet 11/18/16 Doripenem [Doribax] 500 mg IV Q8H #21 vial 11/18/16 Famotidine [Pepcid 20 mg Tablet] 20 mg PO Q12 tablet 11/18/16 Insulin Glargine,Hum.rec.anlog [Lantus Insulin 100 Unit/mL] 24 unit SUBCUT QHS insuln.pen 11/18/16 Ipratropium/Albuterol Sulfate [Duoneb 3 ml Ampul] 3 ml NEB RTQ6HP PRN vial.neb 11/18/16 Isosorb Dinit/Hydralazine HCl [Bidil 20-37.5 mg Tablet] 1 tab PEG Q8 tablet Lisinopril [Prinivil 10 mg Tablet] 20 mg PEG DAILY tablet 11/18/16 Metoprolol Tartrate [Lopressor 25 mg Tablet] 12.5 mg PO Q12A tablet 11/18/16 History of Present Illness Admission Date/PCP: 11/09/16 11:21 SHEFALI BAGLEY MD History of Present Illness: THAD JOY is a 75 year old male who has a history of severe dementia as well as having had a previous CVA with hemorrhagic conversion who presents as a transfer from [facility] after being noted to have fever and hematuria. Patient had his chronic Vazquez catheter changed out yesterday. The patient when he presented to emergency room was found to have a fever. Patient has pyuria consistent with an acute urinary tract infection as well as some tachycardia and fever consistent with the diagnosis sepsis. The emergency room physician was concerned that the patient may have pneumonia given some rails in the basis however the chest x-ray did not show an obvious pneumonia. The patient does have a sacral decubitus that's about 1 cm in diameter with packing in place with no purulent drainage. The patient is unable to give any history. He does have a tear at his meatus of his penis from what may represent some minor Vazquez trauma. Patient is admitted for diagnosis of sepsis possibly from urinary tract infection versus early pneumonia. Hospital Course Hospital Course: 75-year-old gentleman who is a [facility] who presented with sepsis symptoms. Patient had fever and relatively low blood pressures that responded to IV fluids. Patient was found to have a urinary tract infection. He has a chronic indwelling Vazquez because of his sacral decubitus that has not yet healed up. The patient was started on Rocephin and vancomycin initially however his urine culture grew out Escherichia coli that was extended spectrum beta-lactamase. Patient was changed to doripenem and he has completed 9 days of this. Patient will need a total of at least 14 days of doripenem. The patient has a stage II decubitus on his sacrum which is unchanged during this hospitalization. He has a history of having osteomyelitis of the sacrum however he previously has completed 6 weeks of antibiotics. There does not seem to be any evidence for osteomyelitis at this time. The patient's other medical problems all were stable during this hospitalization. Please note this patient has severe dementia and is nonverbal at baseline. He has a G-tube in place for feeding because of his mental status and he was continued with that same feedings that he received previously. The patient is transferred back to [facility] for continued IV antibiotics and continued care. Physical Exam Vital Signs: Temp Pulse Resp BP Pulse Ox 98.4 F 62 20 147/72 H 100 11/20/16 07:30 11/20/16 07:30 11/20/16 07:30 11/20/16 07:30 11/20/16 07:30 Intake & Output 11/19/16 11/20/16 11/21/16 06:59 06:59 06:59 Intake Total 3773 3126 Output Total 3500 4200 Balance 273 -1074 Weight 85.4 kg 85.1 kg General appearance: PRESENT: no acute distress Eye exam: PRESENT: conjunctiva pink. ABSENT: scleral icterus Mouth exam: PRESENT: moist, tongue midline Neck exam: ABSENT: JVD Respiratory exam: PRESENT: clear to auscultation [place]. ABSENT: rales, rhonchi, wheezes Cardiovascular exam: PRESENT: RRR. ABSENT: diastolic murmur, rubs, systolic murmur GI/Abdominal exam: PRESENT: normal bowel sounds, soft, other - G-tube in place the left upper quadrant. ABSENT: distended, guarding, mass, organolmegaly, rebound, tenderness Gentrourinary exam: PRESENT: other - he has a defect in the dorsal aspect of the meatus from Vazquez trauma that was present on admission.. Extremities exam: ABSENT: calf tenderness, clubbing, pedal edema Neurological exam: PRESENT: awake. ABSENT: oriented to person, oriented to place, oriented to time, oriented to situation, reflexes normal Psychiatric exam: PRESENT: flat affect Skin exam: PRESENT: other - Stage II sacral decubitus Results Laboratory Results: 11/20/16 06:20 11/20/16 06:20 11/20/16 11/20/16 06:20 06:20 WBC 5.8 RBC 3.55 L Hgb 10.7 L Hct 32.3 L MCV 91 MCH 30.1 MCHC 33.1 RDW 15.2 H Plt Count 246 Seg Neutrophils % 61.5 Lymphocytes % 20.9 Monocytes % 9.0 Eosinophils % 8.0 H Basophils % 0.6 Absolute Neutrophils 3.6 Absolute Lymphocytes 1.2 Absolute Monocytes 0.5 Absolute Eosinophils 0.5 Absolute Basophils 0.0 Sodium 145.1 H Potassium 4.6 Chloride 104 Carbon Dioxide 31 H Anion Gap 10 BUN 25 H Creatinine 0.48 L Est GFR ( Amer) > 60 Est GFR (Non-Af Amer) > 60 Glucose 144 H Calcium 9.4 Impressions: Guidance Fluoroscopy 11/12/16 00:00 IMPRESSION: SUCCESSFUL PLACEMENT OF A 5 FR DUAL LUMEN 41 CM PICC IN THE LEFT BASILIC VEIN. Interventional Vascular Procedure 11/12/16 00:00 IMPRESSION: SUCCESSFUL PLACEMENT OF A 5 FR DUAL LUMEN 41 CM PICC IN THE LEFT BASILIC VEIN. PICC Line Insertion 11/12/16 00:00 IMPRESSION: SUCCESSFUL PLACEMENT OF A 5 FR DUAL LUMEN 41 CM PICC IN THE LEFT BASILIC VEIN. Chest X-Ray 11/16/16 00:00 IMPRESSION: CARDIAC ENLARGEMENT. VASCULAR CONGESTION. Transfer Plan - Disposition Transfer Plan: Patient is transferred to [facility] to continue with doripenem IV as well as sacral decubitus dressing changes. - Time Spent with Patient Time spent with patient: Greater than 30 Minutes Qualifiers PATEINT BEING DISCHARGED WITH ANY OF THE FOLLOWING DIAGNOSIS?: No Plan Discharge Plan: Patient is discharged back to [facility] facility for continued antibiotics and wound care. Time Spent: Greater than 30 Minutes
[2016-11-20 16:08] VITALS: BP 129/65
== END 2016-11-20 16:46 | DRG 872 ==
LOC: ER 06:23 → EH 09:56 → UNDOADMIN 09:56 → EH 11:21 → 3N 11:46
PROVIDERS: ADMIT Internal Medicine; ATTEND Internal Medicine
PROC: 02HV33Z Insertion of Infusion Device into Superior Vena Cava, Percutaneous Approach (ICD-10-PCS; principal; 2016-11-12)
PROC: B548ZZA Ultrasonography of Superior Vena Cava, Guidance (ICD-10-PCS; 2016-11-12)
DX: A41.9 Sepsis, unspecified organism (principal); T83.511A Infection and inflammatory reaction due to indwelling urethral catheter, initial encounter; N39.0 Urinary tract infection, site not specified; E78.5 Hyperlipidemia, unspecified; K21.9 Gastro-esophageal reflux disease without esophagitis; F03.90 Unspecified dementia, unspecified severity, without behavioral disturbance, psychotic disturbance, mood disturbance, and anxiety; E11.622 Type 2 diabetes mellitus with other skin ulcer; I10 Essential (primary) hypertension; Z79.4 Long term (current) use of insulin; L89.152 Pressure ulcer of sacral region, stage 2; G40.909 Epilepsy, unspecified, not intractable, without status epilepticus; Z93.1 Gastrostomy status; B96.20 Unspecified Escherichia coli [E. coli] as the cause of diseases classified elsewhere; B95.2 Enterococcus as the cause of diseases classified elsewhere; E86.0 Dehydration; E83.52 Hypercalcemia; D69.6 Thrombocytopenia, unspecified; D64.9 Anemia, unspecified; B96.29 Other Escherichia coli [E. coli] as the cause of diseases classified elsewhere; S31.21XA Laceration without foreign body of penis, initial encounter; X58.XXXA Exposure to other specified factors, initial encounter; Z96.0 Presence of urogenital implants; Z16.10 Resistance to unspecified beta lactam antibiotics; Z86.73 Personal history of transient ischemic attack (TIA), and cerebral infarction without residual deficits; Z79.899 Other long term (current) drug therapy; Z88.6 Allergy status to analgesic agent; Z88.8 Allergy status to other drugs, medicaments and biological substances
CPT/HCPCS: 36415; 36569; 71010; 76937; 77001; 80048; 80053; 80202; 81001; 82550; 82553; 82565; 82803; 82962; 83605; 83735; 84484; 85025; 85027; 85610; 87040; 87077; 87086; 87088; 87186; 93005; 93010; 93306; 94640; 96365; 96368; 99291; J0295; J0696; J1267; J1642; J1650; J1815; J1940; J1956; J2405; J3370; J3490; J7030; J7060; J7120; J7620

== ENCOUNTER 2016-12-20 17:37 | Emergency (ER) | payer MEDICARE, OTHER ==
--- NOTE | 2016-12-20 18:30 | ER Document Report ---
ED GI/ - General Chief Complaint: Problem with Urinary Catheter Stated Complaint: CATHADER PROBLEM Time seen by provider: 18:27 Mode of Arrival: Medic Information source: Relative - Daughter Tavia, Outside Facility Records TRAVEL OUTSIDE OF THE [place] IN LAST 30 DAYS: No - HPI Patient complains to provider of: Hematuria, Other - Vazquez catheter problem Onset: Just prior to arrival Timing/Duration: Sudden Associated symptoms: Hematuria Recently seen / treated by doctor: Yes Notes: 12/20/16 18:27 Patient is a 75-year-old male who was sent from [facility] for complaints of hematuria/bonita blood from meatus with inability to replace his Vazquez catheter, apparently they attempted to remove and replace his Vazquez catheter, but were unsuccessful and now patient has a moderate amount of blood coming from his meatus, daughter at bedside denies any other symptoms, patient has not been ill recently, no cough, cold, congestion, no nausea, vomiting or diarrhea, no fever or chills, patient has a history of CVA, and is nonverbal at baseline, he requires a Vazquez catheter secondary to sacral decubitus ulcers - Related Data Allergies/Adverse Reactions: oxycodone [Oxycodone] Adverse Reaction (Intermediate, Verified 03/11/16 07:31) agitation simvastatin [From Zocor] Adverse Reaction (Unknown, Verified 03/11/16 07:31) dysarthria Past Medical History - General Information source: Relative, Outside Facility Records - Social History Smoking Status: Unknown if Ever Smoked Family History: Reviewed & Not Pertinent, Other - Unable to obtain given mental status - Past Medical History Cardiac Medical History: Reports: Hx Hypercholesterolemia, Hx Hypertension Neurological Medical History: Reports: Hx Cerebrovascular Accident - CVA in 2014 , History of subarachnoid hemorrhage in 2016, Hx Seizures Endocrine Medical History: Reports: Hx Diabetes Mellitus Type 2 Renal/ Medical History: Reports: Hx Benign Prostatic Hyperplasia GI Medical History: Reports: Hx Gastroesophageal Reflux Disease - PEG tube post CVA Musculoskeltal Medical History: Reports Hx Muscle Weakness Psychiatric Medical History: Reports: Hx Dementia Denies: Hx Depression Past Surgical History: Reports: Hx Abdominal Surgery - Feeding gastrostomy tube , Other - PEG tube placed - Immunizations Hx Diphtheria, Pertussis, Tetanus Vaccination: Yes Hx Pneumococcal Vaccination: 05/25/14 Review of Systems - Review of Systems Constitutional: No symptoms reported EENT: No symptoms reported Cardiovascular: No symptoms reported Respiratory: No symptoms reported Gastrointestinal: No symptoms reported Genitourinary: See HPI Male Genitourinary: No symptoms reported Musculoskeletal: No symptoms reported Skin: No symptoms reported Hematologic/Lymphatic: No symptoms reported Neurological/Psychological: No symptoms reported -: Yes All other systems reviewed and negative Physical Exam - Vital signs Vitals: Temp Pulse Resp BP Pulse Ox 98.9 F 100 25 H 136/62 H 96 12/20/16 17:48 12/20/16 17:48 12/20/16 17:48 12/20/16 17:48 12/20/16 17:48 Interpretation: Normal - General General appearance: Other - Resting comfortably In distress: None - HEENT Head: Normocephalic, Atraumatic Eyes: Normal Conjunctiva: Normal Eyelashes: Normal Pupils: PERRL - Respiratory Respiratory status: No respiratory distress Chest status: Nontender Breath sounds: Nonproductive cough Chest palpation: Normal - Cardiovascular Rhythm: Regular Heart sounds: Normal auscultation - Abdominal Inspection: Normal Distension: No distension Bowel sounds: Normal Tenderness: Nontender Organomegaly: No organomegaly - Genitourinary Inspection: Blood at meatus Tenderness: Nontender Scrotum: Normal - Extremities General upper extremity: Normal inspection General lower extremity: Normal inspection - Neurological Dada Coma Scale Eye Opening: None Dada Coma Scale Verbal: Incomprehensible Dada Coma Scale Motor: Withdraws to Pain Dada Coma Scale Total: 7 - Skin Skin Temperature: Warm Skin Moisture: Dry Skin Color: Normal Course - Re-evaluation Re-evalutation: 12/20/16 23:18 Patient was discussed with Dr. Saunders, urologist at [facility], who accepts patient for transfer on an ED to ED basis, spoke with [facility], who requests that patient's demographics be faxed over, admin secretary was informed and requested for her to fax over the information, as well as preparing patient's chart for transfer and called for transportation, this plan was discussed with patient's daughter at bedside as well, she provided information for contacting her at both her home and her cell number as needed 12/21/16 01:42 Patient remains slightly tachycardic, otherwise stable for transport to [facility] for further evaluation and treatment - Vital Signs Vital signs: Temp Pulse Resp BP Pulse Ox 98.9 F 100 15 127/85 H 97 12/20/16 17:48 12/20/16 17:48 12/21/16 00:00 12/20/16 23:36 12/21/16 00:00 - Laboratory Result Diagrams: 12/20/16 23:10 12/20/16 23:10 Laboratory results interpreted by me: 12/20/16 12/20/16 12/20/16 23:10 23:10 23:10 WBC 19.0 H RDW 16.7 H Plt Count 137 L Seg Neuts % (Manual) 83 H Band Neutrophils % 1 L Lymphocytes % (Manual) 7 L Abs Neuts (Manual) 16.0 H Abs Monocytes (Manual) 1.7 H APTT 22.8 L BUN 24 H Glucose 270 H POC Glucose Alkaline Phosphatase 157 H 12/20/16 23:18 WBC RDW Plt Count Seg Neuts % (Manual) Band Neutrophils % Lymphocytes % (Manual) Abs Neuts (Manual) Abs Monocytes (Manual) APTT BUN Glucose POC Glucose 255 H Alkaline Phosphatase - Diagnostic Test Radiology reviewed: Image reviewed, Reports reviewed Discharge - Discharge Clinical Impression: Injury of male urethra Qualifiers: Encounter type: initial encounter Qualified Code(s): S37.30XA - Unspecified injury of urethra, initial encounter Condition: Serious Disposition: [facility] Referrals: MARGARITA ZARATE MD [Primary Care Provider] - Follow up as needed
[2016-12-20 23:32] LABS: ALANINE AMINOTRANSFERASE 43 U/L (21-72); ALBUMIN 3.8 g/dL (3.5-5.0); ALKALINE PHOSPHATASE 157 U/L (38-126); ANION GAP 14 (5-19); ASPARTATE AMINO TRANSFERASE 52 U/L (17-59); BILIRUBIN,DIRECT 0.3 mg/dL (0.0-0.4); BILIRUBIN,TOTAL 0.5 mg/dL (0.2-1.3); BLOOD UREA NITROGEN 24 mg/dL (7-20); CARBON DIOXIDE 25 mmol/L (22-30); CHLORIDE 102 mmol/L (98-107); CREATININE RESULT 0.52 mg/dL (0.52-1.25); GLUCOSE 270 mg/dL (75-110); POTASSIUM 4.3 mmol/L (3.6-5.0)
[2016-12-20 23:34] LABS: PROTHROMBIN TIME 14.2 SEC (11.4-15.4)
[2016-12-20 23:35] LABS: PARTIAL THROMBOPLASTIN TIME 22.8 SEC (23.5-35.8)
[2016-12-20 23:55] LABS: HEMATOCRIT 40.8 % (37.9-51.0); HEMOGLOBIN 13.8 g/dL (13.5-17.0); HGB HCT DIFFERENCE 0.6; MEAN CORPUSCULAR HEMOGLOBIN 30.5 pg (27.0-33.4); MEAN CORPUSCULAR HGB CONC 33.8 g/dL (32.0-36.0); MEAN CORPUSCULAR VOLUME 90 fl (80-97); RED BLOOD COUNT 4.52 10^6/uL (4.35-5.55); RED CELL DISTRIBUTION WIDTH 16.7 % (11.5-14.0)
[2016-12-20 23:59] LABS: BAND NEUTROPHILS % (MANUAL) 1 % (3-5); BASOPHILS % (MANUAL) 0 % (0-2); EOSINOPHILS % (MANUAL) 0 % (0-6); LYMPHOCYTES % (MANUAL) 7 % (13-45); TOTAL CELLS COUNTED 100
[2016-12-21] LABS: ANISOCYTOSIS 1+; OVALOCYTES SLIGHT; POIKILOCYTOSIS SLIGHT; TEAR DROP CELLS SLIGHT; TOXIC GRANULATION SLIGHT
[2016-12-21] MEDS ORDERED: MORPHINE SULFATE INJ PF 2 MG/2 ML AMPULE IV ONE (01:30)
[2016-12-21] MEDS ORDERED: MORPHINE SULFATE 10 MG/ML INJ IV ONE (01:36)
[2016-12-21 01:53] VITALS: BP 160/97
== END 2016-12-21 01:53 | disposition short-term general hospital (02) ==
LOC: ER 17:37
DX: S37.30XA Unspecified injury of urethra, initial encounter (principal); X58.XXXA Exposure to other specified factors, initial encounter; L89.159 Pressure ulcer of sacral region, unspecified stage; R05 Cough; I10 Essential (primary) hypertension; E11.9 Type 2 diabetes mellitus without complications; Z86.73 Personal history of transient ischemic attack (TIA), and cerebral infarction without residual deficits; R00.0 Tachycardia, unspecified
CPT/HCPCS: 36415; 51702; 76380; 80053; 82962; 85025; 85610; 85730; 99285

== ENCOUNTER 2017-01-12 16:48 | Inpatient (IN) | payer OTHER, MEDICARE ==
[2017-01-12] MEDS ORDERED: NORMAL SALINE 500 ML IV ONE (17:27)
--- NOTE | 2017-01-12 17:29 | ER Document Report ---
ED Respiratory Problem - General Mode of Arrival: Medic Information source: Patient, Relative TRAVEL OUTSIDE OF THE [place] IN LAST 30 DAYS: No - HPI Patient complains to provider of: Other - chest congestion Associated symptoms: Other - See above <MABLE CID - Last Filed: 01/12/17 17:49> <FEDERICOBALJINDER ANN - Last Filed: 01/12/17 22:16> - General Chief Complaint: Chest Congestion Stated Complaint: CHEST CONGESTION Time Seen by Provider: 01/12/17 17:07 Notes: Patient is a 76 year old male, with a past medical history including dementia and CVA, who [facility] daughter for chest congestion. Per daughter patient had a fever yesterday afternoon that resolved and this morning patient woke up and vomited 2x. Daughter reports that he stated having some difficulty breathing afterword and he was suctioned at [facility] which helped raise his oxygen some. Per Daughter, patient had his bed placed below 35 degrees a few days ago and he has been having some congestion issues after that. Daughter states that he has a catheter in place after rupturing his urethra which is healing, she is worried about the patient's urinary output being low but his PCP reports it is adequate. Daughter denies any recent changes in medication. PCP: Dr. Gomes (MABLE CID) - Related Data Allergies/Adverse Reactions: oxycodone [Oxycodone] Adverse Reaction (Intermediate, Verified 01/12/17 19:24) agitation simvastatin [From Zocor] Adverse Reaction (Unknown, Verified 01/12/17 19:24) dysarthria Past Medical History - General Information source: Patient - Social History Smoking Status: Unknown if Ever Smoked Family History: Reviewed & Not Pertinent, Other - Unable to obtain given mental status - Past Medical History Cardiac Medical History: Reports: Hx Hypercholesterolemia, Hx Hypertension Neurological Medical History: Reports: Hx Cerebrovascular Accident - CVA in 2014 , History of subarachnoid hemorrhage in 2016, Hx Seizures Endocrine Medical History: Reports: Hx Diabetes Mellitus Type 2 Renal/ Medical History: Reports: Hx Benign Prostatic Hyperplasia GI Medical History: Reports: Hx Gastroesophageal Reflux Disease - PEG tube post CVA Musculoskeltal Medical History: Reports Hx Muscle Weakness Psychiatric Medical History: Reports: Hx Dementia Past Surgical History: Reports: Hx Abdominal Surgery - Feeding gastrostomy tube , Other - PEG tube placed - Immunizations Hx Diphtheria, Pertussis, Tetanus Vaccination: Yes Hx Pneumococcal Vaccination: 05/25/14 <MABLE CID - Last Filed: 01/12/17 17:49> Review of Systems - Review of Systems -: Yes ROS unobtainable due to patient's medical condition <MABLE CID - Last Filed: 01/12/17 17:49> Physical Exam - Vital signs Interpretation: Hypotensive, Tachypneic - General General appearance: Other - Altered In distress: Mild - respiratory - HEENT Head: Normocephalic, Atraumatic - Respiratory Respiratory status: Respiratory distress - mild Chest status: Nontender Breath sounds: Decreased air movement - on right Chest palpation: Normal - Cardiovascular Rhythm: Tachycardia Heart sounds: Normal auscultation Murmur: No - Extremities General upper extremity: Normal inspection General lower extremity: Normal inspection - Neurological Cognition: Other - altered - Skin Skin Temperature: Warm Skin Moisture: Dry Skin Color: Normal <MABLE CID - Last Filed: 01/12/17 17:49> Course - Laboratory Result Diagrams: 01/12/17 17:10 01/12/17 17:10 - Consults Hospitalist Time consulted: 17:47 - Gabby will admit patient <MABLE CID - Last Filed: 01/12/17 17:49> - Laboratory Result Diagrams: 01/12/17 17:10 01/12/17 17:10 - Diagnostic Test Radiology reviewed: Image reviewed, Reports reviewed - EKG Interpretation by Me EKG shows normal: Sinus rhythm <BALJINDER CABALLERO - Last Filed: 01/12/17 22:16> - Re-evaluation Re-evalutation: 01/12/17 18:12 Patient is a 76-year-old male who comes in with difficulty breathing, congestion , and altered mental status. Patient apparently was not at his usual 35 2 days ago. Has a history of aspiration. Patient is a full code per family. Patient with elevated white blood cell count, infiltrate on chest. Patient old microbiology and history have been reviewed. He will be started on antibiotics. Blood and urine cultures have been sent. He will be admitted to the hospital service. Of note, the slight elevation in troponin is likely from demand ischemia as the patient's lactate is 3. Patient is improving with fluids and antibiotics. His respiratory status is improved with BiPAP. He is discussed with the hospitalist service and will be admitted. Family agrees with this plan. (BALJINDER CABALLERO) - Vital Signs Vital signs: Temp Pulse Resp BP Pulse Ox 100.3 F 32 H 102/56 L 93 01/12/17 18:20 01/12/17 21:13 01/12/17 19:15 01/12/17 21:13 - Laboratory Laboratory results interpreted by me: 01/12/17 01/12/17 01/12/17 17:10 17:10 17:10 WBC 21.6 H RBC 3.97 L Hgb 11.4 L Hct 35.9 L MCHC 31.7 L RDW 16.7 H Band Neutrophils % 14 H Lymphocytes % (Manual) 6 L Metamyelocytes % 1 H Abs Neuts (Manual) 18.6 H Abs Monocytes (Manual) 1.5 H ABG pH ABG pO2 ABG HCO3 ABG Total CO2 ABG O2 Saturation Chloride 97 L Carbon Dioxide 31 H BUN 44 H Glucose 148 H Lactic Acid 3.0 H Calcium 10.3 H Alkaline Phosphatase 131 H Creatine Kinase 32 L NT-Pro-B Natriuret Pep Urine Protein Ur Leukocyte Esterase Urine Ascorbic Acid 01/12/17 01/12/17 01/12/17 17:10 17:20 17:50 WBC RBC Hgb Hct MCHC RDW Band Neutrophils % Lymphocytes % (Manual) Metamyelocytes % Abs Neuts (Manual) Abs Monocytes (Manual) ABG pH 7.46 H ABG pO2 59.3 L ABG HCO3 29.5 H ABG Total CO2 30.8 H ABG O2 Saturation 91.9 L Chloride Carbon Dioxide BUN Glucose Lactic Acid Calcium Alkaline Phosphatase Creatine Kinase NT-Pro-B Natriuret Pep 1540 H Urine Protein 30 H Ur Leukocyte Esterase LARGE H Urine Ascorbic Acid 40 H Critical Care Note - Critical Care Note Total time excluding time spent on procedures (mins): 60 - Evaluation and management of difficulty breathing, altered mental status, sepsis, multiple re- evaluations, coordination of admission <BALJINDER CABALLERO - Last Filed: 01/12/17 22:16> Discharge <MABLE CID - Last Filed: 01/12/17 17:49> <BALJINDER CABALLERO - Last Filed: 05/21/17 22:16> - Discharge Clinical Impression: SIRS (systemic inflammatory response syndrome), Decubitus ulcer of coccygeal region, stage 2, Decubitus ulcer of left buttock, stage 2, Decubitus ulcer of right buttock, stage 2, History of cerebral hemorrhage Aspiration pneumonia Qualifiers: Aspiration pneumonia type: unspecified Laterality: right Lung location: lower lobe of lung Qualified Code(s): J69.0 - Pneumonitis due to inhalation of food and vomit Pneumonia Qualifiers: Pneumonia type: due to unspecified organism Laterality: unspecified laterality Lung location: unspecified part of lung Qualified Code(s): J18.9 - Pneumonia, unspecified organism UTI (urinary tract infection) Qualifiers: Urinary tract infection type: site unspecified Hematuria presence: without hematuria Qualified Code(s): N39.0 - Urinary tract infection, site not specified Condition: Stable Disposition: ADMITTED INPATIENT Scribe Attestation: 01/12/17 22:16 I personally performed the services described in the documentation, reviewed and edited the documentation which was dictated to the scribe in my presence, and it accurately records my words and actions. (BALJINDER CABALLERO) Scribe Documentation - Scribe Written by Dominiquee:: jamari Amato, 01/12/17, 1746 acting as scribe for :: Federico <MABLE CID - Last Filed: 01/12/17 17:49>
[2017-01-12 17:36] LABS: PROTHROMBIN TIME 14.9 SEC (11.4-15.4)
[2017-01-12 17:39] LABS: AMORPHOUS SEDIMENT,URINE TRACE /HPF; APPEARANCE,URINE CLOUDY; BILIRUBIN,URINE NEGATIVE (NEGATIVE); GLUCOSE, URINE NEGATIVE (NEGATIVE); KETONES,URINE NEGATIVE (NEGATIVE); LEUKOCYTE ESTERASE,URINE LARGE (NEGATIVE); NITRITE,URINE NEGATIVE (NEGATIVE); PROTEIN,URINE 30 mg/dL (NEGATIVE); URINE SPECIFIC GRAVITY 1.025; UROBILINOGEN,URINE NEGATIVE mg/dL (<2.0)
[2017-01-12 17:39] LABS: HEMATOCRIT 35.9 % (37.9-51.0); HEMOGLOBIN 11.4 g/dL (13.5-17.0); HGB HCT DIFFERENCE -1.7; MEAN CORPUSCULAR HEMOGLOBIN 28.6 pg (27.0-33.4); MEAN CORPUSCULAR HGB CONC 31.7 g/dL (32.0-36.0); MEAN CORPUSCULAR VOLUME 90 fl (80-97); RED BLOOD COUNT 3.97 10^6/uL (4.35-5.55); RED CELL DISTRIBUTION WIDTH 16.7 % (11.5-14.0); WHITE BLOOD COUNT 21.6 10^3/uL (4.0-10.5)
[2017-01-12] MEDS ORDERED: PIPERACILLIN/TAZOBACTAM 3.375 GM VIAL IV ONE (17:46)
[2017-01-12] MEDS ORDERED: VANCOMYCIN HCL INJ 1000 MG VIAL IV ONE (17:48)
[2017-01-12 17:55] LABS: ALANINE AMINOTRANSFERASE 46 U/L (21-72); ALBUMIN 3.5 g/dL (3.5-5.0); ALKALINE PHOSPHATASE 131 U/L (38-126); ANION GAP 13 (5-19); ASPARTATE AMINO TRANSFERASE 27 U/L (17-59); BILIRUBIN,DIRECT 0.4 mg/dL (0.0-0.4); BILIRUBIN,TOTAL 0.7 mg/dL (0.2-1.3); BLOOD UREA NITROGEN 44 mg/dL (7-20); CALCIUM 10.3 mg/dL (8.4-10.2); CARBON DIOXIDE 31 mmol/L (22-30); CHLORIDE 97 mmol/L (98-107); CREATINE KINASE 32 U/L (55-170); CREATININE RESULT 0.83 mg/dL (0.52-1.25); GLUCOSE 148 mg/dL (75-110); POTASSIUM 4.6 mmol/L (3.6-5.0); SODIUM 140.9 mmol/L (137-145); TOTAL PROTEIN 7.8 g/dL (6.3-8.2)
[2017-01-12] MEDS ORDERED: IPRATROPIUM/ALBUTEROL 0.5-2.5 MG/3 ML AMPUL NEB PRN (17:57)
[2017-01-12] MEDS ORDERED: NORMAL SALINE 1000 ML 1,000 ML IV PRN (17:57)
[2017-01-12 18:00] LABS: BASOPHILS % (MANUAL) 0 % (0-2); EOSINOPHILS % (MANUAL) 0 % (0-6); LYMPHOCYTES % (MANUAL) 6 % (13-45); TOTAL CELLS COUNTED 100
[2017-01-12 18:02] LABS: ANISOCYTOSIS 1+; BAND NEUTROPHILS % (MANUAL) 14 % (3-5); HYPOCHROMASIA SLIGHT
[2017-01-12 18:05] LABS: ARTERIAL BLOOD O2 SATURATION 91.9 % (94-98)
[2017-01-12 18:05] LABS: CREATINE KINASE MB 1.85 ng/mL (<4.55)
[2017-01-12 18:08] LABS: TROPONIN I 0.788 ng/mL
[2017-01-12] MEDS ORDERED: VANCOMYCIN HCL 0 MG in DEXTROSE 5%-WATER 250 ML IV NR (18:15)
[2017-01-12] MEDS ORDERED: NORMAL SALINE 1000 ML 1,000 ML IV ONE (18:20)
[2017-01-12] MEDS ORDERED: DEXTROSE 50%-WATER 25 GM/50 ML DISP.SYRIN IV PRN ×2 (18:50)
[2017-01-12] MEDS ORDERED: DEXTROSE 40% GEL 15 GM TUBE PO PRN ×2 (18:50)
[2017-01-12] MEDS ORDERED: GLUCAGON,HUMAN RECOMB 1 MG INJ IM PRN (18:50)
--- NOTE | 2017-01-12 19:00 | PDOC H&P ---
History of Present Illness Admission Date/PCP: MARGARITA ZARATE MD Patient complains of: Fever and congested cough History of Present Illness: THAD JOY is a 76 year old male with past medical history of hemorrhagic CVA, osteomyelitis of the sacrum, dementia, aspiration pneumonia, and COPD. He is well known to our service from previous admissions. He is noncommunicative, his daughter is ANAND, health history is obtained from her. Patient resides [facility] and has for the last several years. According to the daughter he was noted to have a fever yesterday afternoon as well as a congested cough. Fever resolved over the course of the afternoon. The daughter states today he sounded more congested and required nasal tracheal suctioning. She states this did improve his oxygenation. According to his daughter the head of his bed had been left flat several days ago, since then he has had a congested cough. The patient has a chronic indwelling Vazquez as well. He was recently hospitalized for ESBL bacteremia. Daughter states his urine output has been low, however according to patient's PCP his urine output has been adequate. Patient is presently resting in no distress on BiPAP therapy. Past Medical History Cardiac Medical History: Reports: Hyperlipidema, Hypertension Pulmonary Medical History: Reports: Chronic Obstructive Pulmonary Disease (COPD) , Pneumonia EENT Medical History: Reports: None - A very underlying years Neurological Medical History: Reports: Hemorrhagic CVA, Seizures Endocrine Medical History: Reports: Diabetes Mellitus Type 2 Renal/ Medical History: Reports: None GI Medical History: Reports: Gastroesophageal Reflux Disease - PEG tube post CVA , Other - Talked to the daughter trying to reach for it and it got the last running PEG tube in place for enteral feedings Skin Medical History: Reports: Other - stage 2 sacral wound Psychiatric Medical History: Reports: Dementia Denies: Depression Hematology: Reports: Anemia Infectious Medical History: Reports: None Past Surgical History Past Surgical History: Reports: Other - PEG tube placed Social History Information Source: Relative Lives with: [facility] Smoking Status: Former Smoker Number of Years Smokin Frequency of Alcohol Use: None Hx Recreational Drug Use: No Drugs: None Hx Prescription Drug Abuse: No - Advance Directive Resuscitation Status: Full Code Surrogate healthcare decision maker:: Tavia Shafer, daughter Family History Family History: Reviewed & Not Pertinent, Other - Unable to obtain given mental status Parental Family History Reviewed: Yes Children Family History Reviewed: Yes Sibling(s) Family History Reviewed.: Yes Medication/Allergy Home Medications: Ascorbic Acid [Vitamin C 500 mg Tablet] 500 mg PEG DAILY 11/09/16 Cranberry Extract [Cranberry 200 mg Capsule] 400 mg PEG DAILY 11/09/16 Guaifenesin [Tussin] 15 ml PEG Q6H 11/09/16 Lactulose [Constulose 10 gm/15 mL Oral Solution] 30 ml PEG BID 11/09/16 Levetiracetam 750 mg PEG BID 11/09/16 Nitroglycerin [Nitrostat] 0.4 mg SL Q3M 11/09/16 Omeprazole 20 mg PEG DAILY 11/09/16 Polyethylene Glycol 3350 [Miralax Powder 17 gm/Packet] 17 gm PEG DAILY 11/09/16 Zinc Sulfate [Zinc-220 Capsule] 220 mg PEG DAILY 11/09/16 Acetaminophen [Tylenol 325 mg Tablet] 650 mg PEG Q4HP PRN tablet 11/18/16 Doripenem [Doribax] 500 mg IV Q8H #21 vial 11/18/16 Famotidine [Pepcid 20 mg Tablet] 20 mg PO Q12 tablet 11/18/16 Insulin Glargine,Hum.rec.anlog [Lantus Insulin 100 Unit/mL] 24 unit SUBCUT QHS insuln.pen 11/18/16 Ipratropium/Albuterol Sulfate [Duoneb 3 ml Ampul] 3 ml NEB RTQ6HP PRN vial.neb 11/18/16 Isosorb Dinit/Hydralazine HCl [Bidil 20-37.5 mg Tablet] 1 tab PEG Q8 tablet Lisinopril [Prinivil 10 mg Tablet] 20 mg PEG DAILY tablet 11/18/16 Metoprolol Tartrate [Lopressor 25 mg Tablet] 12.5 mg PO Q12A tablet 11/18/16 Allergies/Adverse Reactions: oxycodone [Oxycodone] Adverse Reaction (Intermediate, Verified 03/11/16 07:31) agitation simvastatin [From Zocor] Adverse Reaction (Unknown, Verified 03/11/16 07:31) dysarthria Review of Systems ROS unobtainable: Due to mental status Physical Exam Vital Signs: Temp Pulse Resp BP Pulse Ox 20 91/55 L 94 01/12/17 18:05 01/12/17 18:05 01/12/17 18:05 General appearance: PRESENT: no acute distress, well-developed, well-nourished, other - nonverbal Head exam: PRESENT: atraumatic, normocephalic Eye exam: PRESENT: conjunctiva pink, EOMI, PERRLA. ABSENT: scleral icterus Ear exam: PRESENT: normal external ear exam Mouth exam: PRESENT: moist, neck supple, tongue midline Teeth exam: PRESENT: edentulous Neck exam: ABSENT: carotid bruit, JVD, lymphadenopathy, thyromegaly Respiratory exam: PRESENT: crackles, symmetrical, unlabored - right base Cardiovascular exam: PRESENT: RRR. ABSENT: diastolic murmur, rubs, systolic murmur Pulses: PRESENT: normal dorsalis pedis pul Vascular exam: PRESENT: normal capillary refill GI/Abdominal exam: PRESENT: normal bowel sounds, soft. ABSENT: distended, guarding, mass, organolmegaly, rebound, tenderness Rectal exam: PRESENT: deferred Extremities exam: PRESENT: other - no movement secondary to large hemorrhagic CVA. ABSENT: calf tenderness, clubbing, pedal edema Neurological exam: PRESENT: altered, aphasic Psychiatric exam: PRESENT: flat affect Skin exam: PRESENT: other - stage 2 sacral wound Results Laboratory Results: 01/12/17 17:10 01/12/17 17:10 01/12/17 01/12/17 01/12/17 17:10 17:10 17:10 WBC 21.6 H RBC 3.97 L Hgb 11.4 L Hct 35.9 L MCV 90 MCH 28.6 MCHC 31.7 L RDW 16.7 H Plt Count 312 Seg Neutrophils % Not Reportable Lymphocytes % Not Reportable Monocytes % Not Reportable Eosinophils % Not Reportable Basophils % Not Reportable Absolute Neutrophils Not Reportable Absolute Lymphocytes Not Reportable Absolute Monocytes Not Reportable Absolute Eosinophils Not Reportable Absolute Basophils Not Reportable Carbonic Acid HCO3/H2CO3 Ratio ABG pH ABG pCO2 ABG pO2 ABG HCO3 ABG O2 Saturation ABG Base Excess FiO2 Sodium 140.9 Potassium 4.6 Chloride 97 L Carbon Dioxide 31 H Anion Gap 13 BUN 44 H Creatinine 0.83 Est GFR ( Amer) > 60 Est GFR (Non-Af Amer) > 60 Glucose 148 H Lactic Acid 3.0 H Calcium 10.3 H Total Bilirubin 0.7 AST 27 ALT 46 Alkaline Phosphatase 131 H Total Protein 7.8 Albumin 3.5 Urine Color Urine Appearance Urine pH Ur Specific [place] Urine Protein Urine Glucose (UA) Urine Ketones Urine Blood Urine Nitrite Ur Leukocyte Esterase Urine WBC (Auto) Urine RBC (Auto) 01/12/17 01/12/17 17:20 17:50 WBC RBC Hgb Hct MCV MCH MCHC RDW Plt Count Seg Neutrophils % Lymphocytes % Monocytes % Eosinophils % Basophils % Absolute Neutrophils Absolute Lymphocytes Absolute Monocytes Absolute Eosinophils Absolute Basophils Carbonic Acid 1.29 HCO3/H2CO3 Ratio 22:1 ABG pH 7.46 H ABG pCO2 42.7 ABG pO2 59.3 L ABG HCO3 29.5 H ABG O2 Saturation 91.9 L ABG Base Excess 5.0 FiO2 5L Sodium Potassium Chloride Carbon Dioxide Anion Gap BUN Creatinine Est GFR ( Amer) Est GFR (Non-Af Amer) Glucose Lactic Acid Calcium Total Bilirubin AST ALT Alkaline Phosphatase Total Protein Albumin Urine Color DARK YELLOW Urine Appearance CLOUDY Urine pH 5.0 Ur Specific [place] 1.025 Urine Protein 30 H Urine Glucose (UA) NEGATIVE Urine Ketones NEGATIVE Urine Blood NEGATIVE Urine Nitrite NEGATIVE Ur Leukocyte Esterase LARGE H Urine WBC (Auto) 81 Urine RBC (Auto) 10 01/12/17 01/12/17 17:10 17:10 Creatine Kinase 32 L CK-MB (CK-2) 1.85 Troponin I 0.788 NT-Pro-B Natriuret Pep 1540 H Impressions: Chest X-Ray 01/12/17 17:08 IMPRESSION: Ill-defined airspace opacity noted the right lung base which could represent atelectasis, infiltrate, or edema. Correlate clinically. Assessment & Plan - Diagnosis (1) Sepsis Qualifiers: Sepsis type: sepsis due to unspecified organism Qualified Code(s): A41.9 - Sepsis, unspecified organism Is this a current diagnosis for this admission?: YesPlan: Patient with lactate of 3, tachycardia, hypotension and fever of 100.2. He was pancultured, he was given 2 L of normal saline bolus. He was started on broad- spectrum IV antibiotics after cultures were obtained. Tylenol for rectal temperature greater than 101.2. Patient appears to have a right lower lobe pneumoni,most likely secondary to aspiration and a UTI (2) Aspiration pneumonia Qualifiers: Laterality: right Lung location: lower lobe of lung Is this a current diagnosis for this admission?: YesPlan: Patient with history of dysphagia status post CVA on PEG tube feedings. Head of bed needs to be elevated greater than 30. He will be kept n.p.o. Broad- spectrum IV antibiotics were initiated after blood cultures were obtained. He will be NT suctioned as needed. (3) Diabetes mellitus Qualifiers: Diabetes mellitus type: type 2 Diabetes mellitus complication status: with unspecified complications Diabetes mellitus skilled nursing insulin use: unspecified terminologist insulin use status Qualified Code(s): E11.8 - Type 2 diabetes mellitus with unspecified complications; Z79.4 - longterm (current) use of insulin Is this a current diagnosis for this admission?: YesPlan: Sliding scale insulin coverage for now until tube feedings are resumed. (4) UTI (urinary tract infection) Qualifiers: Urinary tract infection type: site unspecified Hematuria presence: without hematuria Qualified Code(s): N39.0 - Urinary tract infection, site not specified Is this a current diagnosis for this admission?: YesPlan: Broad-spectrum IV antibiotics (5) Dementia Qualifiers: Dementia type: unspecified type Dementia behavioral disturbance: without behavioral disturbance Qualified Code(s): F03.90 - Unspecified dementia without behavioral disturbance Is this a current diagnosis for this admission?: Yes (6) History of stroke Is this a current diagnosis for this admission?: YesPlan: Patient with history of large hemorrhagic CVA completely aphasic, no spontaneous movement of extremities (7) Anemia of chronic disease Is this a current diagnosis for this admission?: YesPlan: Stable - Time Time Spent: 50 to 70 Minutes Critical Time spent with patient: 35 or more minutes Medications reviewed and adjusted accordingly: Yes - Inpatient Certification Based on my medical assessment, after consideration of the patient's comorbidities, presenting symptoms, or acuity I expect that the services needed warrant INPATIENT care.: Yes I certify that my determination is in accordance with my understanding of Medicare's requirements for reasonable and necessary INPATIENT services [42 CFR 412.3e].: Yes Medical Necessity: Significant Comorbidiites Make Outpatient Treatment Too Risky , Need For IV Fluids, Need for IV Antibiotics, Risk of Complication if Not Cared For in Hospital
[2017-01-12] MEDS ORDERED: PIPERACILLIN/TAZOBACTAM 3.375 GM VIAL IV PRN (19:31)
[2017-01-12] MEDS: NORMAL SALINE 1000 ML 1,000 ML IV PRN (22:41)
[2017-01-13] MEDS: IPRATROPIUM/ALBUTEROL 0.5-2.5 MG/3 ML AMPUL NEB SCH ×4 (00:02→23:46)
[2017-01-13] MEDS ORDERED: PIPERACILLIN/TAZOBACTAM 3.375 GM VIAL IV ONE (00:51)
[2017-01-13] MEDS: PIPERACILLIN SODIUM/TAZOBACTAM 3.375 GM in NORMAL SALINE 100 ML IV SCH ×5 (01:10→21:04)
[2017-01-13] MEDS: HEPARIN SOD (PORCINE) 5,000 UNIT/ML 1 ML SYRINGE SUBCUT SCH ×4 (01:10→21:38)
[2017-01-13 04:38] LABS: ABSOLUTE MONOCYTES (AUTO) 1.6 10^3/uL (0.1-1.4); ABSOLUTE NEUT (AUTO) 15.8 10^3/uL (1.7-8.2); BASOPHILS % (AUTO) 0.2 % (0-2); EOSINOPHILS % (AUTO) 0.1 % (0-6); HEMATOCRIT 34.5 % (37.9-51.0); HEMOGLOBIN 10.8 g/dL (13.5-17.0); HGB HCT DIFFERENCE -2.1; LYMPHOCYTES % (AUTO) 5.4 % (13-45); MEAN CORPUSCULAR HEMOGLOBIN 28.3 pg (27.0-33.4); MEAN CORPUSCULAR HGB CONC 31.4 g/dL (32.0-36.0); MEAN CORPUSCULAR VOLUME 90 fl (80-97); MONOCYTES % (AUTO) 8.5 % (3-13); RED BLOOD COUNT 3.82 10^6/uL (4.35-5.55); RED CELL DISTRIBUTION WIDTH 16.8 % (11.5-14.0); SEGMENTED NEUTROPHILS % (AUTO) 85.8 % (42-78); WHITE BLOOD COUNT 18.5 10^3/uL (4.0-10.5)
[2017-01-13] MEDS ORDERED: VANCOMYCIN HCL INJ 500 MG VIAL IV PRN (05:00)
[2017-01-13 05:29] LABS: ALANINE AMINOTRANSFERASE 32 U/L (21-72); ALBUMIN 3.3 g/dL (3.5-5.0); ALKALINE PHOSPHATASE 106 U/L (38-126); ANION GAP 12 (5-19); ASPARTATE AMINO TRANSFERASE 44 U/L (17-59); BILIRUBIN,DIRECT 0.5 mg/dL (0.0-0.4); BILIRUBIN,TOTAL 0.8 mg/dL (0.2-1.3); BLOOD UREA NITROGEN 42 mg/dL (7-20); CALCIUM 9.6 mg/dL (8.4-10.2); CARBON DIOXIDE 28 mmol/L (22-30); CHLORIDE 103 mmol/L (98-107); CREATININE RESULT 0.72 mg/dL (0.52-1.25); GLUCOSE 142 mg/dL (75-110); MAGNESIUM 2.2 mg/dL (1.6-2.3); POTASSIUM 4.2 mmol/L (3.6-5.0); SODIUM 142.5 mmol/L (137-145); TOTAL PROTEIN 7.7 g/dL (6.3-8.2)
[2017-01-13] MEDS ORDERED: VANCOMYCIN HCL 1,250 MG in DEXTROSE 5%-WATER 250 ML IV ONE (06:00)
--- NOTE | 2017-01-13 09:01 | EKG REPORT ---
SEVERITY:- OTHERWISE NORMAL ECG - SINUS TACHYCARDIA : Confirmed by: Francis Tello MD 13-Jan-2017 09:01:16
--- NOTE | 2017-01-13 10:29 | PDOC PROGRESS REPORT ---
Subjective Progress Note for:: 01/13/17 Subjective:: Patient seen on morning rounds. He is resting in bed on BIPAP. He appears to be in no distress. He is noncommunicative since last CVA. No family is at bedside. Nursing report no issues overnight. Review of systems are unobtainable due to mentation. Physical Exam Vital Signs: Temp Pulse Resp BP Pulse Ox 98.1 F 84 19 92/45 L 98 01/13/17 07:35 01/13/17 07:39 01/13/17 07:39 01/13/17 07:35 01/13/17 07:39 Intake & Output 01/12/17 01/13/17 01/14/17 06:59 06:59 06:59 Intake Total 1000 Output Total 450 Balance 550 Weight 77.7 kg General appearance: PRESENT: no acute distress, well-developed, well-nourished Head exam: PRESENT: atraumatic, normocephalic Eye exam: PRESENT: conjunctiva pink, EOMI, PERRLA. ABSENT: scleral icterus Ear exam: PRESENT: normal external ear exam Mouth exam: PRESENT: moist, tongue midline Neck exam: ABSENT: carotid bruit, JVD, lymphadenopathy, thyromegaly Respiratory exam: PRESENT: clear to auscultation yokasta. ABSENT: rales, rhonchi, wheezes Cardiovascular exam: PRESENT: RRR. ABSENT: diastolic murmur, rubs, systolic murmur Pulses: PRESENT: normal dorsalis pedis pul Vascular exam: PRESENT: normal capillary refill GI/Abdominal exam: PRESENT: normal bowel sounds, soft. ABSENT: distended, guarding, mass, organolmegaly, rebound, tenderness Rectal exam: PRESENT: deferred Extremities exam: PRESENT: full ROM. ABSENT: calf tenderness, clubbing, pedal edema Neurological exam: PRESENT: altered, CN II-XII grossly intact Psychiatric exam: PRESENT: flat affect Skin exam: PRESENT: dry, intact, warm. ABSENT: cyanosis, rash Results Laboratory Results: 01/13/17 03:55 01/13/17 03:55 01/12/17 01/13/17 01/13/17 22:20 03:55 03:55 WBC 18.5 H RBC 3.82 L Hgb 10.8 L Hct 34.5 L MCV 90 MCH 28.3 MCHC 31.4 L RDW 16.8 H Plt Count 217 Seg Neutrophils % 85.8 H Lymphocytes % 5.4 L Monocytes % 8.5 Eosinophils % 0.1 Basophils % 0.2 Absolute Neutrophils 15.8 H Absolute Lymphocytes 1.0 Absolute Monocytes 1.6 H Absolute Eosinophils 0.0 Absolute Basophils 0.0 Sodium 142.5 Potassium 4.2 Chloride 103 Carbon Dioxide 28 Anion Gap 12 BUN 42 H Creatinine 0.72 Est GFR ( Amer) > 60 Est GFR (Non-Af Amer) > 60 Glucose 142 H Lactic Acid 3.6 H Calcium 9.6 Magnesium 2.2 Total Bilirubin 0.8 AST 44 ALT 32 Alkaline Phosphatase 106 Total Protein 7.7 Albumin 3.3 L Impressions: Chest X-Ray 01/12/17 17:08 IMPRESSION: Ill-defined airspace opacity noted the right lung base which could represent atelectasis, infiltrate, or edema. Correlate clinically. Assessment & Plan - Diagnosis (1) Sepsis Qualifiers: Sepsis type: sepsis due to unspecified organism Qualified Code(s): A41.9 - Sepsis, unspecified organism Is this a current diagnosis for this admission?: YesPlan: Tachycardia, hypotension, and fever (2) Aspiration pneumonia Qualifiers: Aspiration pneumonia type: unspecified Laterality: right Lung location: lower lobe of lung Qualified Code(s): J69.0 - Pneumonitis due to inhalation of food and vomit Is this a current diagnosis for this admission?: YesPlan: Patient with history of dysphagia status post CVA on PEG tube feedings. Head of bed needs to be elevated greater than 30. He will be kept n.p.o. Broad- spectrum IV antibiotics were initiated after blood cultures were obtained. He will be NT suctioned as needed. 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 (4) UTI (urinary tract infection) Qualifiers: Urinary tract infection type: site unspecified Hematuria presence: without hematuria Qualified Code(s): N39.0 - Urinary tract infection, site not specified Is this a current diagnosis for this admission?: YesPlan: Broad-spectrum IV antibiotics (5) Dementia Qualifiers: Dementia type: unspecified type Dementia behavioral disturbance: without behavioral disturbance Qualified Code(s): F03.90 - Unspecified dementia without behavioral disturbance Is this a current diagnosis for this admission?: Yes (6) History of stroke Is this a current diagnosis for this admission?: YesPlan: Patient with history of large hemorrhagic CVA completely aphasic, no spontaneous movement of extremities (7) Anemia of chronic disease Is this a current diagnosis for this admission?: YesPlan: Stable - Time Time Spent with patient: 25-34 minutes Critical Time spent with patient: 15-24 minutes Medications reviewed and adjusted accordingly: Yes Anticipated discharge: Acute Rehab - Inpatient Certification Medical Necessity: Need For IV Fluids, Need for IV Antibiotics, Risk of Complication if Not Cared For in Hospital
[2017-01-13] MEDS: VANCOMYCIN HCL 1,250 MG in DEXTROSE 5%-WATER 250 ML IV SCH ×2 (11:03→21:37)
[2017-01-13] MEDS: INSULIN LISPRO 100 UNIT/ML 3 ML VIAL SUBCUT PRN (13:47)
[2017-01-13 15:05] LABS: PATH REVIEW PATHOLOGIST REVIEWED
[2017-01-13] MEDS: LACTULOSE SYRUP 20 GM/30 ML UDCUP PEG SCH (17:38)
[2017-01-14] MEDS: INSULIN LISPRO 100 UNIT/ML 3 ML VIAL SUBCUT PRN ×2 (00:09→07:02)
[2017-01-14] MEDS: PIPERACILLIN SODIUM/TAZOBACTAM 3.375 GM in NORMAL SALINE 100 ML IV SCH ×4 (03:26→20:54)
[2017-01-14 05:10] LABS: HEMOGLOBIN 10.5 g/dL (13.5-17.0); HGB HCT DIFFERENCE -3.5; MEAN CORPUSCULAR HEMOGLOBIN 27.5 pg (27.0-33.4); MEAN CORPUSCULAR HGB CONC 29.9 g/dL (32.0-36.0); MEAN CORPUSCULAR VOLUME 92 fl (80-97); RED CELL DISTRIBUTION WIDTH 17.2 % (11.5-14.0)
[2017-01-14 05:30] LABS: ALANINE AMINOTRANSFERASE 33 U/L (21-72); ALBUMIN 3.1 g/dL (3.5-5.0); ALKALINE PHOSPHATASE 96 U/L (38-126); ANION GAP 8 (5-19); ASPARTATE AMINO TRANSFERASE 29 U/L (17-59); BILIRUBIN,DIRECT 0.4 mg/dL (0.0-0.4); BILIRUBIN,TOTAL 0.5 mg/dL (0.2-1.3); BLOOD UREA NITROGEN 30 mg/dL (7-20); CALCIUM 9.5 mg/dL (8.4-10.2); CARBON DIOXIDE 29 mmol/L (22-30); CHLORIDE 107 mmol/L (98-107); CREATININE RESULT 0.63 mg/dL (0.52-1.25); GLUCOSE 141 mg/dL (75-110); POTASSIUM 3.5 mmol/L (3.6-5.0); TOTAL PROTEIN 7.4 g/dL (6.3-8.2)
[2017-01-14 05:48] LABS: BASOPHILS % (MANUAL) 0 % (0-2); EOSINOPHILS % (MANUAL) 3 % (0-6); LYMPHOCYTES % (MANUAL) 3 % (13-45); TOTAL CELLS COUNTED 100
[2017-01-14 05:51] LABS: ANISOCYTOSIS 1+; OVALOCYTES SLIGHT; POIKILOCYTOSIS SLIGHT; POLYCHROMASIA SLIGHT
[2017-01-14 05:53] LABS: BAND NEUTROPHILS % (MANUAL) 13 % (3-5)
[2017-01-14] MEDS: NORMAL SALINE 1000 ML 1,000 ML IV PRN (06:00)
[2017-01-14] MEDS: HEPARIN SOD (PORCINE) 5,000 UNIT/ML 1 ML SYRINGE SUBCUT SCH ×3 (06:02→21:42)
[2017-01-14] MEDS ORDERED: ACETAMINOPHEN 325 MG TABLET PEG PRN (07:46)
[2017-01-14] MEDS: IPRATROPIUM/ALBUTEROL 0.5-2.5 MG/3 ML AMPUL NEB SCH ×3 (08:00→23:55)
[2017-01-14] MEDS ORDERED: NORMAL SALINE 1000 ML 1,000 ML IV PRN (08:08)
[2017-01-14] MEDS: VANCOMYCIN HCL 1,250 MG in DEXTROSE 5%-WATER 250 ML IV SCH ×2 (09:52→21:45)
[2017-01-14] MEDS: ASCORBIC ACID 500 MG TABLET PEG SCH (09:55)
[2017-01-14] MEDS: LISINOPRIL 10 MG TABLET PEG SCH (09:56)
[2017-01-14] MEDS: POLYETHYLENE GLYCOL 3350 POWDER 17 GM/1 PACKET PEG SCH (09:56)
[2017-01-14] MEDS: FAMOTIDINE 20 MG TABLET PEG SCH ×2 (09:56→21:38)
[2017-01-14] MEDS: LACTULOSE SYRUP 20 GM/30 ML UDCUP PEG SCH ×2 (09:57→17:38)
[2017-01-14] MEDS: METOPROLOL TARTRATE 25 MG TABLET PEG SCH ×2 (09:57→21:38)
[2017-01-14] MEDS: LANSOPRAZOLE 15 MG TAB.RAP.DR PEG SCH (09:57)
[2017-01-14] MEDS: LEVETIRACETAM ORAL SOLN 500 MG/5 ML UDCUP PEG SCH ×2 (10:00→21:44)
[2017-01-14] MEDS ORDERED: LACTULOSE 20 GM PEG SCH (10:00)
[2017-01-14] MEDS ORDERED: (PENDING PHARMACY ID) (Levetiracetam [Keppra] 750 MG) PEG SCH (10:00)
[2017-01-14] MEDS: GUAIFENESIN SYRP 200 MG/10 ML UDC PEG SCH ×2 (13:17→17:38)
[2017-01-14] MEDS: ISOSORB DINIT/HYDRALAZINE HCL 20-37.5 MG TABLET PEG SCH ×2 (13:17→21:42)
[2017-01-14 13:22] LABS: WHITE BLOOD COUNT 14.9 10^3/uL (4.0-10.5)
--- NOTE | 2017-01-14 14:38 | PDOC PROGRESS REPORT ---
Subjective Progress Note for:: 01/14/17 Subjective:: Patient seen on morning rounds. He is resting in bed on BIPAP. He appears to be in no distress. He is noncommunicative since last CVA. No family is at bedside. Nursing report no issues overnight. Review of systems are unobtainable due to mentation. Physical Exam Vital Signs: Temp Pulse Resp BP Pulse Ox 98.2 F 70 25 H 114/53 L 100 01/14/17 11:39 01/14/17 11:39 01/14/17 11:39 01/14/17 11:39 01/14/17 11:39 Intake & Output 01/13/17 01/14/17 01/15/17 06:59 06:59 06:59 Intake Total 1000 3130 0 Output Total 450 675 250 Balance 550 2455 -250 Weight 77.7 kg 77.5 kg General appearance: PRESENT: no acute distress, thin, well-developed, well- nourished Head exam: PRESENT: atraumatic, normocephalic Eye exam: PRESENT: conjunctiva pink, EOMI, PERRLA. ABSENT: scleral icterus Ear exam: PRESENT: normal external ear exam Mouth exam: PRESENT: moist, tongue midline Neck exam: ABSENT: carotid bruit, JVD, lymphadenopathy, thyromegaly Respiratory exam: PRESENT: accessory muscle use, decreased breath sounds, symmetrical, unlabored Cardiovascular exam: PRESENT: RRR. ABSENT: diastolic murmur, rubs, systolic murmur Pulses: PRESENT: normal dorsalis pedis pul Vascular exam: PRESENT: normal capillary refill GI/Abdominal exam: PRESENT: normal bowel sounds, soft. ABSENT: distended, guarding, mass, organolmegaly, rebound, tenderness Rectal exam: PRESENT: deferred Extremities exam: PRESENT: other - no movement of extremities. ABSENT: calf tenderness, clubbing, pedal edema Neurological exam: PRESENT: altered, CN II-XII grossly intact, motor sensory deficit, aphasic Psychiatric exam: PRESENT: flat affect Skin exam: PRESENT: other - stage II sacral wound Results Laboratory Results: 01/14/17 03:50 01/14/17 03:50 01/14/17 01/14/17 03:50 03:50 WBC 14.9 H RBC 3.80 L Hgb 10.5 L Hct 35.0 L MCV 92 MCH 27.5 MCHC 29.9 L RDW 17.2 H Plt Count 185 Seg Neutrophils % Not Reportable Lymphocytes % Not Reportable Monocytes % Not Reportable Eosinophils % Not Reportable Basophils % Not Reportable Absolute Neutrophils Not Reportable Absolute Lymphocytes Not Reportable Absolute Monocytes Not Reportable Absolute Eosinophils Not Reportable Absolute Basophils Not Reportable Sodium 144.0 Potassium 3.5 L Chloride 107 Carbon Dioxide 29 Anion Gap 8 BUN 30 H Creatinine 0.63 Est GFR ( Amer) > 60 Est GFR (Non-Af Amer) > 60 Glucose 141 H Calcium 9.5 Total Bilirubin 0.5 AST 29 ALT 33 Alkaline Phosphatase 96 Total Protein 7.4 Albumin 3.1 L Impressions: Chest X-Ray 01/12/17 17:08 IMPRESSION: Ill-defined airspace opacity noted the right lung base which could represent atelectasis, infiltrate, or edema. Correlate clinically. Assessment & Plan - Diagnosis (1) Sepsis Qualifiers: Sepsis type: sepsis due to unspecified organism Qualified Code(s): A41.9 - Sepsis, unspecified organism Is this a current diagnosis for this admission?: YesPlan: Tachycardia, hypotension, and fever have resolved with IV antibiotics and fluids (2) Aspiration pneumonia Qualifiers: Aspiration pneumonia type: unspecified Laterality: right Lung location: lower lobe of lung Qualified Code(s): J69.0 - Pneumonitis due to inhalation of food and vomit Is this a current diagnosis for this admission?: YesPlan: Patient with history of dysphagia status post CVA on PEG tube feedings. Head of bed needs to be elevated greater than 30. He will be kept n.p.o. Broad- spectrum IV antibiotics were initiated after blood cultures were obtained. He will be NT suctioned as needed. 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 (4) UTI (urinary tract infection) Qualifiers: Urinary tract infection type: site unspecified Hematuria presence: without hematuria Qualified Code(s): N39.0 - Urinary tract infection, site not specified Is this a current diagnosis for this admission?: YesPlan: Broad-spectrum IV antibiotics (5) Dementia Qualifiers: Dementia type: unspecified type Dementia behavioral disturbance: without behavioral disturbance Qualified Code(s): F03.90 - Unspecified dementia without behavioral disturbance Is this a current diagnosis for this admission?: Yes (6) History of stroke Is this a current diagnosis for this admission?: YesPlan: Patient with history of large hemorrhagic CVA completely aphasic, no spontaneous movement of extremities (7) Anemia of chronic disease Is this a current diagnosis for this admission?: YesPlan: Stable - Time Time Spent with patient: 25-34 minutes Medications reviewed and adjusted accordingly: Yes Anticipated discharge: Acute Rehab
[2017-01-14] MEDS: INSULIN GLARGINE,HUM.REC.ANLOG 1,000 UNIT/10 ML UNIT SUBCUT SCH (21:42)
[2017-01-14] MEDS ORDERED: INSULIN GLARGINE,HUM.REC.ANLOG 1,000 UNIT/10 ML UNIT SUBCUT SCH (22:00)
[2017-01-15] MEDS: GUAIFENESIN SYRP 200 MG/10 ML UDC PEG SCH ×5 (00:22→23:51)
[2017-01-15] MEDS: INSULIN LISPRO 100 UNIT/ML 3 ML VIAL SUBCUT PRN (00:23)
[2017-01-15] MEDS: PIPERACILLIN SODIUM/TAZOBACTAM 3.375 GM in NORMAL SALINE 100 ML IV SCH ×4 (03:05→20:53)
[2017-01-15] MEDS: HEPARIN SOD (PORCINE) 5,000 UNIT/ML 1 ML SYRINGE SUBCUT SCH ×3 (06:05→21:51)
[2017-01-15] MEDS: ISOSORB DINIT/HYDRALAZINE HCL 20-37.5 MG TABLET PEG SCH ×3 (06:07→21:48)
[2017-01-15 06:55] LABS: ABSOLUTE EOSINOPHILS # (AUTO) 0.4 10^3/uL (0.0-0.6); ABSOLUTE LYMPHOCYTES (AUTO) 0.8 10^3/uL (0.5-4.7); ABSOLUTE MONOCYTES (AUTO) 0.9 10^3/uL (0.1-1.4); ABSOLUTE NEUT (AUTO) 8.1 10^3/uL (1.7-8.2); BASOPHILS % (AUTO) 0.2 % (0-2); EOSINOPHILS % (AUTO) 3.8 % (0-6); HEMATOCRIT 25.5 % (37.9-51.0); HGB HCT DIFFERENCE -0.6; LYMPHOCYTES % (AUTO) 7.9 % (13-45); MEAN CORPUSCULAR HGB CONC 32.5 g/dL (32.0-36.0); MEAN CORPUSCULAR VOLUME 89 fl (80-97); MONOCYTES % (AUTO) 9.1 % (3-13); RED BLOOD COUNT 2.86 10^6/uL (4.35-5.55); RED CELL DISTRIBUTION WIDTH 16.6 % (11.5-14.0); WHITE BLOOD COUNT 10.3 10^3/uL (4.0-10.5)
[2017-01-15 06:56] LABS: HEMOGLOBIN 8.3 g/dL (13.5-17.0)
[2017-01-15 07:15] LABS: ALANINE AMINOTRANSFERASE 48 U/L (21-72); ALBUMIN 2.4 g/dL (3.5-5.0); ALKALINE PHOSPHATASE 83 U/L (38-126); ANION GAP 8 (5-19); ASPARTATE AMINO TRANSFERASE 37 U/L (17-59); BILIRUBIN,DIRECT 0.2 mg/dL (0.0-0.4); BILIRUBIN,TOTAL 0.4 mg/dL (0.2-1.3); BLOOD UREA NITROGEN 13 mg/dL (7-20); CALCIUM 8.9 mg/dL (8.4-10.2); CARBON DIOXIDE 26 mmol/L (22-30); CHLORIDE 110 mmol/L (98-107); CREATININE RESULT 0.49 mg/dL (0.52-1.25); GLUCOSE 131 mg/dL (75-110); POTASSIUM 3.5 mmol/L (3.6-5.0); TOTAL PROTEIN 5.8 g/dL (6.3-8.2)
[2017-01-15] MEDS: IPRATROPIUM/ALBUTEROL 0.5-2.5 MG/3 ML AMPUL NEB SCH ×3 (07:52→23:13)
[2017-01-15] MEDS ORDERED: POTASSI CL 20 MEQ/50 ML RIDER 50 ML IV ONE (08:45)
--- NOTE | 2017-01-15 11:09 | OPERATIVE REPORT E ---
Operative Report NAME: THAD JOY : 1940 AGE: 76Y DATE OF SURGERY: ROOM: 302 PREOPERATIVE DIAGNOSIS: Nonfunctioning percutaneous endoscopic gastrostomy tube. POSTOPERATIVE DIAGNOSIS: Nonfunctioning percutaneous endoscopic gastrostomy tube. OPERATION: Replacement of nonfunctioning percutaneous endoscopic gastrostomy tube. SURGEON: TARAH KENT M.D. INDICATION: This 76-year-old male who had a history of CVA and dementia had a PEG tube several years ago. PEG tube has not been draining. An attempt to irrigate it was done, but still unable to clear it. Because of this, a replacement is being done. PROCEDURE: Patient was in the supine position, and the PEG tube subsequently pulled out of the abdomen. There is a tract, and a 16-Divehi tube was placed. However, it appears to be loose around the catheter. There is a small amount of bleeding noted. Because of this the 16-Divehi gastric tube was then removed. At this time a 20-Divehi gastric tube was placed through the old site with the use of K-Y Jelly. The tube went in quite easily. The balloon was inflated. At this time it was easily irrigated with saline solution. The flange was pushed down towards the abdominal wall to keep the tube in place. Patient tolerated the procedure well. DICTATING PHYSICIAN: TARAH KENT M.D. [id number] PHY#: [id number] ID: [id number] JOB#: [id number] ACCT: [id number] cc:TARAH KENT M.D. >
[2017-01-15] MEDS: LACTULOSE SYRUP 20 GM/30 ML UDCUP PEG SCH ×2 (11:23→17:58)
[2017-01-15] MEDS: LEVETIRACETAM ORAL SOLN 500 MG/5 ML UDCUP PEG SCH ×2 (11:24→21:53)
[2017-01-15] MEDS: METOPROLOL TARTRATE 25 MG TABLET PEG SCH ×2 (11:25→21:49)
[2017-01-15] MEDS: ASCORBIC ACID 500 MG TABLET PEG SCH (11:26)
[2017-01-15] MEDS: LISINOPRIL 10 MG TABLET PEG SCH (11:26)
[2017-01-15] MEDS: LANSOPRAZOLE 15 MG TAB.RAP.DR PEG SCH (11:26)
[2017-01-15] MEDS: FAMOTIDINE 20 MG TABLET PEG SCH ×2 (11:27→21:48)
[2017-01-15] MEDS: POLYETHYLENE GLYCOL 3350 POWDER 17 GM/1 PACKET PEG SCH (11:27)
--- NOTE | 2017-01-15 11:48 | PDOC PROGRESS REPORT ---
Subjective Progress Note for:: 01/15/17 Subjective:: Patient seen on morning rounds. He is resting in bed on BIPAP. He appears to be in no distress. He is noncommunicative since last CVA. No family is at bedside. Nursing report his PEG tube became nonfunctional last night. They are not able to irrigate or flush the tube. Review of systems are unobtainable due to mentation. Physical Exam Vital Signs: Temp Pulse Resp BP Pulse Ox 98.2 F 73 25 H 144/64 H 99 01/15/17 08:24 01/15/17 08:24 01/15/17 08:24 01/15/17 08:24 01/15/17 08:24 Intake & Output 01/14/17 01/15/17 01/16/17 06:59 06:59 06:59 Intake Total 3130 3930 Output Total 675 1100 Balance 2455 2830 Weight 77.5 kg 78 kg General appearance: PRESENT: no acute distress, well-developed, well-nourished, other - unresponsive to verbal stimuli Head exam: PRESENT: atraumatic, normocephalic Eye exam: PRESENT: conjunctiva pink, EOMI, PERRLA. ABSENT: scleral icterus Ear exam: PRESENT: normal external ear exam Mouth exam: PRESENT: moist, tongue midline Neck exam: ABSENT: carotid bruit, JVD, lymphadenopathy, thyromegaly Respiratory exam: PRESENT: crackles - right base, symmetrical, unlabored. ABSENT: rales, rhonchi, wheezes Cardiovascular exam: PRESENT: RRR. ABSENT: diastolic murmur, rubs, systolic murmur Pulses: PRESENT: normal dorsalis pedis pul Vascular exam: PRESENT: normal capillary refill GI/Abdominal exam: PRESENT: normal bowel sounds, soft, other - PEG tube patent, but will not flush. ABSENT: distended, guarding, mass, organolmegaly, rebound, tenderness Rectal exam: PRESENT: deferred Extremities exam: PRESENT: full ROM. ABSENT: calf tenderness, clubbing, pedal edema Neurological exam: PRESENT: altered, CN II-XII grossly intact, aphasic Psychiatric exam: PRESENT: flat affect Skin exam: PRESENT: dry, intact, warm. ABSENT: cyanosis, rash Results Laboratory Results: 01/15/17 06:30 01/15/17 06:30 01/14/17 01/14/17 01/15/17 03:50 21:35 06:30 WBC 14.9 H 10.3 RBC 3.80 L 2.86 L Hgb 10.5 L 8.3 L D Hct 35.0 L 25.5 L MCV 92 89 MCH 27.5 29.0 MCHC 29.9 L 32.5 RDW 17.2 H 16.6 H Plt Count 185 179 Seg Neutrophils % 79.0 H Lymphocytes % 7.9 L Monocytes % 9.1 Eosinophils % 3.8 Basophils % 0.2 Absolute Neutrophils 8.1 Absolute Lymphocytes 0.8 Absolute Monocytes 0.9 Absolute Eosinophils 0.4 Absolute Basophils 0.0 Sodium Potassium Chloride Carbon Dioxide Anion Gap BUN Creatinine 0.50 L Est GFR ( Amer) > 60 Est GFR (Non-Af Amer) > 60 Glucose Calcium Total Bilirubin AST ALT Alkaline Phosphatase Total Protein Albumin 01/15/17 06:30 WBC RBC Hgb Hct MCV MCH MCHC RDW Plt Count Seg Neutrophils % Lymphocytes % Monocytes % Eosinophils % Basophils % Absolute Neutrophils Absolute Lymphocytes Absolute Monocytes Absolute Eosinophils Absolute Basophils Sodium 144.0 Potassium 3.5 L Chloride 110 H Carbon Dioxide 26 Anion Gap 8 BUN 13 Creatinine 0.49 L Est GFR ( Amer) > 60 Est GFR (Non-Af Amer) > 60 Glucose 131 H Calcium 8.9 Total Bilirubin 0.4 AST 37 ALT 48 Alkaline Phosphatase 83 Total Protein 5.8 L Albumin 2.4 L Impressions: Chest X-Ray 01/12/17 17:08 IMPRESSION: Ill-defined airspace opacity noted the right lung base which could represent atelectasis, infiltrate, or edema. Correlate clinically. Assessment & Plan - Diagnosis (1) Sepsis Qualifiers: Sepsis type: sepsis due to unspecified organism Qualified Code(s): A41.9 - Sepsis, unspecified organism Is this a current diagnosis for this admission?: YesPlan: Tachycardia, hypotension, and fever have resolved with IV antibiotics and fluids (2) Aspiration pneumonia Qualifiers: Aspiration pneumonia type: unspecified Laterality: right Lung location: lower lobe of lung Qualified Code(s): J69.0 - Pneumonitis due to inhalation of food and vomit Is this a current diagnosis for this admission?: YesPlan: Patient with history of dysphagia status post CVA on PEG tube feedings. Head of bed needs to be elevated greater than 30. He will be kept n.p.o. Broad- spectrum IV antibiotics were initiated after blood cultures were obtained. He will be NT suctioned as needed. 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 (4) UTI (urinary tract infection) Qualifiers: Urinary tract infection type: site unspecified Hematuria presence: without hematuria Qualified Code(s): N39.0 - Urinary tract infection, site not specified Is this a current diagnosis for this admission?: YesPlan: Broad-spectrum IV antibiotics (5) Dementia Qualifiers: Dementia type: unspecified type Dementia behavioral disturbance: without behavioral disturbance Qualified Code(s): F03.90 - Unspecified dementia without behavioral disturbance Is this a current diagnosis for this admission?: Yes (6) History of stroke Is this a current diagnosis for this admission?: YesPlan: Patient with history of large hemorrhagic CVA completely aphasic, no spontaneous movement of extremities (7) Anemia of chronic disease Is this a current diagnosis for this admission?: YesPlan: Stable - Time Time Spent with patient: 25-34 minutes Critical Time spent with patient: 15-24 minutes Medications reviewed and adjusted accordingly: Yes Anticipated discharge: SNF
[2017-01-15] MEDS: INSULIN GLARGINE,HUM.REC.ANLOG 1,000 UNIT/10 ML UNIT SUBCUT SCH (23:50)
[2017-01-16] MEDS: PIPERACILLIN SODIUM/TAZOBACTAM 3.375 GM in NORMAL SALINE 100 ML IV SCH ×4 (03:54→21:01)
[2017-01-16 04:59] LABS: ALANINE AMINOTRANSFERASE 44 U/L (21-72); ALBUMIN 2.5 g/dL (3.5-5.0); ALKALINE PHOSPHATASE 83 U/L (38-126); ANION GAP 10 (5-19); ASPARTATE AMINO TRANSFERASE 28 U/L (17-59); BILIRUBIN,DIRECT 0.3 mg/dL (0.0-0.4); BILIRUBIN,TOTAL 0.3 mg/dL (0.2-1.3); BLOOD UREA NITROGEN 10 mg/dL (7-20); CARBON DIOXIDE 25 mmol/L (22-30); CHLORIDE 111 mmol/L (98-107); GLUCOSE 127 mg/dL (75-110); POTASSIUM 3.5 mmol/L (3.6-5.0); SODIUM 146.3 mmol/L (137-145); TOTAL PROTEIN 6.1 g/dL (6.3-8.2)
[2017-01-16] MEDS: HEPARIN SOD (PORCINE) 5,000 UNIT/ML 1 ML SYRINGE SUBCUT SCH ×3 (05:25→21:58)
[2017-01-16] MEDS: ISOSORB DINIT/HYDRALAZINE HCL 20-37.5 MG TABLET PEG SCH ×3 (05:25→21:57)
[2017-01-16] MEDS: GUAIFENESIN SYRP 200 MG/10 ML UDC PEG SCH ×3 (05:25→18:13)
[2017-01-16] MEDS: IPRATROPIUM/ALBUTEROL 0.5-2.5 MG/3 ML AMPUL NEB SCH ×3 (07:59→23:52)
[2017-01-16] MEDS ORDERED: POTASSIUM CHLORIDE 20 MEQ/15 ML UDCUP PEG ONE (09:30)
[2017-01-16] MEDS: LANSOPRAZOLE 15 MG TAB.RAP.DR PEG SCH (11:37)
[2017-01-16] MEDS: METOPROLOL TARTRATE 25 MG TABLET PEG SCH ×2 (11:38→21:58)
[2017-01-16] MEDS: FAMOTIDINE 20 MG TABLET PEG SCH ×2 (11:38→21:57)
[2017-01-16] MEDS: ASCORBIC ACID 500 MG TABLET PEG SCH (11:38)
[2017-01-16] MEDS: LISINOPRIL 10 MG TABLET PEG SCH (11:39)
[2017-01-16] MEDS: LEVETIRACETAM ORAL SOLN 500 MG/5 ML UDCUP PEG SCH ×2 (11:40→22:01)
[2017-01-16] MEDS: POLYETHYLENE GLYCOL 3350 POWDER 17 GM/1 PACKET PEG SCH (11:41)
[2017-01-16] MEDS: LACTULOSE SYRUP 20 GM/30 ML UDCUP PEG SCH (11:41)
--- NOTE | 2017-01-16 14:42 | OPERATIVE REPORT E ---
Operative Report NAME: THAD JOY : 1940 AGE: 76Y DATE OF SURGERY: 01/15/2017 ROOM: 302 PREOPERATIVE DIAGNOSIS: Sacral decubitus ulcer. POSTOPERATIVE DIAGNOSIS: Sacral decubitus ulcer with undermining around it and deep to the bone. This makes it a stage IV decubitus. SURGEON: TARAH KENT M.D. DESCRIPTION OF PROCEDURE: The old packing was removed and the defect roughly is around 1 cm. The area was subsequently probed around it and appears to have undermining of the skin of about 2.5 cm proximal and distal, and lateral and medial. The area was subsequently finger dilated and the defect palpated. There appears to be a defect down to the sacral bone. 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 The area was subsequently repacked with 0.25-inch Iodoform gauze. A sterile dressing was placed around it. It appears that the patient will likely need an incision to relieve the undermining for better healing purposes. He might need a wound VAC to heal the wound faster. DICTATING PHYSICIAN: TARAH KENT M.D. [id number] PHY#: [id number] ID: [id number] JOB#: [id number] ACCT: [id number] cc:TARAH KENT M.D. >
--- NOTE | 2017-01-16 16:54 | PDOC PROGRESS REPORT ---
Subjective Subjective:: Patient seen on morning rounds. He is resting in bed on BIPAP. He appears to be in no distress. He is noncommunicative since last CVA. No family is at bedside. Nursing report his PEG tube became nonfunctional last night. They are not able to irrigate or flush the tube. Review of systems are unobtainable due to mentation. Physical Exam Vital Signs: Temp Pulse Resp BP Pulse Ox 98.8 F 86 28 H 130/57 H 99 01/16/17 12:00 01/16/17 12:00 01/16/17 12:00 01/16/17 12:00 01/16/17 12:00 Intake & Output 01/15/17 01/16/17 01/17/17 06:59 06:59 06:59 Intake Total 3930 475 10 Output Total 1100 825 200 Balance 2830 -350 -190 Weight 78 kg General appearance: PRESENT: no acute distress, well-developed, well-nourished, other - aphasic Head exam: PRESENT: atraumatic - I think, normocephalic Eye exam: PRESENT: conjunctiva pink, EOMI, PERRLA. ABSENT: scleral icterus Ear exam: PRESENT: normal external ear exam Mouth exam: PRESENT: moist, tongue midline Neck exam: ABSENT: carotid bruit - There 1 a 47-year-old, JVD, lymphadenopathy, thyromegaly Respiratory exam: PRESENT: clear to auscultation y[place]. ABSENT: rales, rhonchi, wheezes Cardiovascular exam: PRESENT: RRR. ABSENT: diastolic murmur, rubs, systolic murmur Pulses: PRESENT: normal dorsalis pedis pul Vascular exam: PRESENT: normal capillary refill GI/Abdominal exam: PRESENT: normal bowel sounds, soft. ABSENT: distended, guarding, mass, organolmegaly, rebound, tenderness Rectal exam: PRESENT: deferred - Colace 100 twice daily Colace and milk of magnesia 30 mL every 8 daily as needed by Extremities exam: PRESENT: other - contracted upper extremities. ABSENT: calf tenderness, clubbing, pedal edema Neurological exam: PRESENT: altered, CN II-XII grossly intact, aphasic Psychiatric exam: PRESENT: flat affect Skin exam: PRESENT: dry, intact, warm. ABSENT: cyanosis, rash Results Laboratory Results: 01/15/17 06:30 01/16/17 03:50 05/25/17 03:50 Sodium 146.3 H Potassium 3.5 L Chloride 111 H Carbon Dioxide 25 Anion Gap 10 BUN 10 Creatinine 0.50 L Est GFR ( Amer) > 60 Est GFR (Non-Af Amer) > 60 Glucose 127 H Calcium 9.0 Total Bilirubin 0.3 AST 28 ALT 44 Alkaline Phosphatase 83 Total Protein 6.1 L Albumin 2.5 L Impressions: Chest X-Ray 01/12/17 17:08 IMPRESSION: Ill-defined airspace opacity noted the right lung base which could represent atelectasis, infiltrate, or edema. Correlate clinically. Assessment & Plan - Diagnosis (1) Sepsis Qualifiers: Sepsis type: sepsis due to unspecified organism Qualified Code(s): A41.9 - Sepsis, unspecified organism Is this a current diagnosis for this admission?: YesPlan: Resolved (2) Aspiration pneumonia Qualifiers: Aspiration pneumonia type: unspecified Laterality: right Lung location: lower lobe of lung Qualified Code(s): J69.0 - Pneumonitis due to inhalation of food and vomit Is this a current diagnosis for this admission?: YesPlan: Patient with history of dysphagia status post CVA on PEG tube feedings. Head of bed needs to be elevated greater than 30. He will be kept n.p.o. Broad- spectrum IV antibiotics were initiated after blood cultures were obtained. He will be NT suctioned as needed. (3) Diabetes mellitus Qualifiers: Diabetes mellitus type: type 2 Diabetes mellitus complication status: with unspecified complications Diabetes mellitus health service coordinator insulin use: unspecified care home insulin use status Qualified Code(s): E11.8 - Type 2 diabetes mellitus with unspecified complications; Z79.4 - penitentiary (current) use of insulin Is this a current diagnosis for this admission?: YesPlan: Sliding scale insulin coverage for now until tube feedings are resumed. (4) UTI (urinary tract infection) Qualifiers: Urinary tract infection type: site unspecified Hematuria presence: without hematuria Qualified Code(s): N39.0 - Urinary tract infection, site not specified Is this a current diagnosis for this admission?: YesPlan: Broad-spectrum IV antibiotics (5) Dementia Qualifiers: Dementia type: unspecified type Dementia behavioral disturbance: without behavioral disturbance Qualified Code(s): F03.90 - Unspecified dementia without behavioral disturbance Is this a current diagnosis for this admission?: Yes (6) History of stroke Is this a current diagnosis for this admission?: YesPlan: Patient with history of large hemorrhagic CVA completely aphasic, no spontaneous movement of extremities (7) Anemia of chronic disease Is this a current diagnosis for this admission?: YesPlan: Stable - Time Time Spent with patient: 25-34 minutes Medications reviewed and adjusted accordingly: Yes Anticipated discharge: Acute Rehab
[2017-01-16] MEDS: ACETAMINOPHEN SOLN 325 MG/10.15 ML UDCUP PEG PRN (18:13)
[2017-01-16] MEDS: INSULIN GLARGINE,HUM.REC.ANLOG 1,000 UNIT/10 ML UNIT SUBCUT SCH (22:00)
[2017-01-17] MEDS: GUAIFENESIN SYRP 200 MG/10 ML UDC PEG SCH ×5 (01:17→23:06)
[2017-01-17] MEDS: PIPERACILLIN SODIUM/TAZOBACTAM 3.375 GM in NORMAL SALINE 100 ML IV SCH (03:08)
[2017-01-17] MEDS: HEPARIN SOD (PORCINE) 5,000 UNIT/ML 1 ML SYRINGE SUBCUT SCH ×3 (06:23→22:31)
[2017-01-17] MEDS: ISOSORB DINIT/HYDRALAZINE HCL 20-37.5 MG TABLET PEG SCH ×3 (06:24→22:26)
[2017-01-17] MEDS: IPRATROPIUM/ALBUTEROL 0.5-2.5 MG/3 ML AMPUL NEB SCH ×3 (08:04→23:43)
--- NOTE | 2017-01-17 09:33 | PDOC TRANSFER SUMMARY ---
General - Admit/Disc Date/PCP Admission Date/Primary Care Provider: 01/12/17 17:57 MARGARITA ZARATE MD Discharge Date: 01/17/17 - Discharge Diagnosis (1) Sepsis Is this a current diagnosis for this admission?: YesSummary: Resolved (2) Aspiration pneumonia Is this a current diagnosis for this admission?: YesSummary: Levaquin 500 mg daily for the next 7 days. Keep head of bed elevated at greater than 30 degrees at all times (3) Diabetes mellitus Is this a current diagnosis for this admission?: YesSummary: Continue current medications (4) UTI (urinary tract infection) Is this a current diagnosis for this admission?: YesSummary: Levaquin 500 mg daily for 7 days (5) Dementia Is this a current diagnosis for this admission?: Yes (6) History of stroke Is this a current diagnosis for this admission?: Yes (7) Anemia of chronic disease Is this a current diagnosis for this admission?: YesSummary: Stable - Additional Information Resuscitation Status: Full Code Discharge Diet: Tube Feeding (Comments) - Glucerna at 80 cc/hr with 60 cc water flushes every 4 hrs Discharge Activity: Activity As Tolerated, Balance Activity w/Rest Home Medications: Acetaminophen [Tylenol 325 mg Tablet] 650 mg PEG Q6HP PRN 01/13/17 Ascorbic Acid [Vitamin C 500 mg Tablet] 500 mg PEG DAILY 01/13/17 Cranberry Extract [Cranberry 200 mg Capsule] 400 mg PEG DAILY 01/13/17 Famotidine [Pepcid 20 mg Tablet] 20 mg PEG Q12 01/13/17 Guaifenesin [Siltussin SA] 300 mg PEG Q6 01/13/17 Insulin Glargine,Hum.rec.anlog [Lantus Insulin 100 Unit/1 ml 10 ml] 24 unit SUBCUT QHS 01/13/17 Ipratropium/Albuterol Sulfate [Duoneb 3 ml Ampul] 3 ml NEB [id number] PRN 01/13/17 Isosorb Dinit/Hydralazine HCl [Bidil 20-37.5 mg Tablet] 1 tab PEG Q8 01/13/17 Lactulose [Enulose 10 gm/15 mL Oral Solution] 20 gm PEG BID 01/13/17 Levetiracetam [Keppra] 750 mg PEG Q12 01/13/17 Lisinopril [Prinivil 10 mg Tablet] 20 mg PEG DAILY 01/13/17 Metoprolol Tartrate [Lopressor 25 mg Tablet] 12.5 mg PEG Q12 01/13/17 Nitroglycerin [Nitrostat] 0.4 mg SL Q5MP PRN 01/13/17 Omeprazole 20 mg PEG Q6AM 01/13/17 Polyethylene Glycol 3350 [Miralax Powder 17 gm/Packet] 1 packet PEG DAILY Zinc Sulfate [Zinc-220 Capsule] 220 mg PEG DAILY 01/13/17 Levofloxacin [Levaquin 500 mg Tablet] 500 mg PEG DAILY #7 tablet 01/17/17 History of Present Illness Admission Date/PCP: 01/12/17 17:57 MARGARITA ZARATE MD Patient complains of: Fever and congested cough History of Present Illness: THAD JOY is a 76 year old male with past medical history of hemorrhagic CVA, osteomyelitis of the sacrum, dementia, aspiration pneumonia, and COPD. He is well known to our service from previous admissions. He is noncommunicative, his daughter [place] [facility] [place] health history is obtained from her. Patient resides [facility] and has for the last several years. According to the daughter he was noted to have a fever yesterday afternoon as well as a congested cough. Fever resolved over the course of the afternoon. The daughter states today he sounded more congested and required nasal tracheal suctioning. She states this did improve his oxygenation. According to his daughter the head of his bed had been left flat several days ago, since then he has had a congested cough. The patient has a chronic indwelling Vazquez as well. He was recently hospitalized for ESBL bacteremia. Daughter states his urine output has been low, however according to patient's PCP his urine output has been adequate. Patient is presently resting in no distress on BiPAP therapy. Hospital Course Hospital Course: Patient was admitted to [facility] on telemetry. He continued on BiPAP therapy for the next 24 hours. He did require NT suctioning by respiratory therapy on several occasions. He was started on broad-spectrum IV antibiotics after cultures were obtained. Antibiotic choices were determined by following microbiology results. He was given IV hydration due to hyponatremia and mild dehydration. This resolved. He continued to have nursing care to his stage II sacral wound which is tunneling. There is no signs of any infection of the wound. Urine culture did show Pseudomonas. Blood cultures 2 remained negative. He was able to be weaned off BiPAP. His tachycardia, hypotension and tachypnea resolved. Leukocytosis is also resolved electrolytes are all within normal limits. Today he was transitioned to oral antibiotics according to GLADIS sensitivity. His PEG tube became plugged and required placement by general surgeon, Dr. Durán. He is tolerating full dose Glucerna tube feedings at 80 cc an hour which is his requirement. Physical Exam Vital Signs: Temp Pulse Resp BP Pulse Ox 98.7 F 79 20 131/50 H 96 01/17/17 07:29 01/17/17 08:04 01/17/17 08:04 01/17/17 07:29 01/17/17 08:04 Intake & Output 01/16/17 01/17/17 01/18/17 06:59 06:59 06:59 Intake Total 475 990 Output Total 825 850 Balance -350 140 Weight 90.2 kg General appearance: PRESENT: no acute distress, well-developed, well-nourished Head exam: PRESENT: atraumatic, normocephalic Eye exam: PRESENT: conjunctiva pale, EOMI, PERRLA. ABSENT: scleral icterus Ear exam: PRESENT: normal external ear exam Mouth exam: PRESENT: moist, tongue midline Teeth exam: PRESENT: edentulous Neck exam: PRESENT: carotid bruit, full ROM Respiratory exam: PRESENT: crackles, rhonchi - right base, symmetrical, unlabored Cardiovascular exam: PRESENT: +S1, +S2 Pulses: PRESENT: normal carotid pulses, normal radial pulses GI/Abdominal exam: PRESENT: normal bowel sounds, soft. ABSENT: distended, guarding, mass, organolmegaly, rebound, tenderness Rectal exam: PRESENT: deferred Extremities exam: PRESENT: full ROM. ABSENT: calf tenderness, clubbing, pedal edema Neurological exam: PRESENT: CN II-XII grossly intact - unresponsive to verbal stimuli, aphasic Psychiatric exam: PRESENT: flat affect Skin exam: PRESENT: dry - Stage II sacral wound with packing, warm, other Results Laboratory Results: 01/15/17 06:30 01/16/17 03:50 Impressions: Chest X-Ray 01/12/17 17:08 IMPRESSION: Ill-defined airspace opacity noted the right lung base which could represent atelectasis, infiltrate, or edema. Correlate clinically. Transfer Plan - Disposition Transfer Plan: Transfer to [facility] - Time Spent with Patient Time spent with patient: Less than 30 Minutes Qualifiers PATEINT BEING DISCHARGED WITH ANY OF THE FOLLOWING DIAGNOSIS?: No
[2017-01-17] MEDS: LEVETIRACETAM ORAL SOLN 500 MG/5 ML UDCUP PEG SCH ×2 (14:05→22:23)
[2017-01-17] MEDS: ACETAMINOPHEN SOLN 325 MG/10.15 ML UDCUP PEG PRN ×2 (14:06→19:51)
[2017-01-17] MEDS: METOPROLOL TARTRATE 25 MG TABLET PEG SCH ×2 (14:07→22:26)
[2017-01-17] MEDS: LEVOFLOXACIN 500 MG TABLET PEG SCH (14:08)
[2017-01-17] MEDS: FAMOTIDINE 20 MG TABLET PEG SCH ×2 (14:09→22:23)
[2017-01-17] MEDS: LANSOPRAZOLE 15 MG TAB.RAP.DR PEG SCH (14:10)
[2017-01-17] MEDS: ASCORBIC ACID 500 MG TABLET PEG SCH (14:10)
[2017-01-17] MEDS: LISINOPRIL 10 MG TABLET PEG SCH (14:11)
[2017-01-17] MEDS: INSULIN GLARGINE,HUM.REC.ANLOG 1,000 UNIT/10 ML UNIT SUBCUT SCH (22:28)
[2017-01-18] MEDS: GUAIFENESIN SYRP 200 MG/10 ML UDC PEG SCH ×4 (05:38→22:38)
[2017-01-18] MEDS: ISOSORB DINIT/HYDRALAZINE HCL 20-37.5 MG TABLET PEG SCH ×3 (05:39→22:36)
[2017-01-18] MEDS: HEPARIN SOD (PORCINE) 5,000 UNIT/ML 1 ML SYRINGE SUBCUT SCH ×3 (06:02→22:57)
[2017-01-18] MEDS: IPRATROPIUM/ALBUTEROL 0.5-2.5 MG/3 ML AMPUL NEB SCH ×3 (07:50→23:28)
[2017-01-18] MEDS: LANSOPRAZOLE 15 MG TAB.RAP.DR PEG SCH (08:04)
[2017-01-18] MEDS: INSULIN LISPRO 100 UNIT/ML 3 ML VIAL SUBCUT PRN ×2 (08:04→12:24)
--- NOTE | 2017-01-18 08:34 | PDOC PROGRESS REPORT ---
Subjective Progress Note for:: 01/17/17 Subjective:: Patient seen on morning rounds. He is resting in bed. He appears to be in no distress. He has an occassional congested cough. He is noncommunicative since last CVA. No family is at bedside. Review of systems are unobtainable due to mentation. Physical Exam Vital Signs: Temp Pulse Resp BP Pulse Ox 99.7 F 87 18 152/70 H 94 01/18/17 07:26 01/18/17 07:57 01/18/17 07:57 01/18/17 07:26 01/18/17 07:57 Intake & Output 01/17/17 01/18/17 01/19/17 06:59 06:59 06:59 Intake Total 990 2175 Output Total 850 1450 Balance 140 725 Weight 90.2 kg 90.3 kg General appearance: PRESENT: no acute distress, well-developed, well-nourished Head exam: PRESENT: atraumatic, normocephalic Eye exam: PRESENT: conjunctiva pale Ear exam: PRESENT: normal external ear exam Teeth exam: PRESENT: edentulous Neck exam: PRESENT: carotid bruit, full ROM Respiratory exam: PRESENT: rhonchi, symmetrical, unlabored Cardiovascular exam: PRESENT: RRR. ABSENT: diastolic murmur, rubs, systolic murmur Vascular exam: PRESENT: normal capillary refill GI/Abdominal exam: PRESENT: hypoactive bowel sounds, normal bowel sounds - PEG tube patent, soft, other Rectal exam: PRESENT: deferred Extremities exam: PRESENT: full ROM. ABSENT: calf tenderness, clubbing, pedal edema Musculoskeletal exam: PRESENT: ambulatory, full ROM Neurological exam: PRESENT: altered, CN II-XII grossly intact, aphasic, other. ABSENT: motor sensory deficit Psychiatric exam: PRESENT: flat affect Skin exam: PRESENT: dry, warm, other - stage 2 sacral wound Results Laboratory Results: 01/15/17 06:30 01/16/17 03:50 01/12/17 18:10 Blood Blood Culture - Final NO GROWTH IN 5 DAYS Impressions: Chest X-Ray 01/12/17 17:08 IMPRESSION: Ill-defined airspace opacity noted the right lung base which could represent atelectasis, infiltrate, or edema. Correlate clinically. Assessment & Plan - Diagnosis (1) Aspiration pneumonia Qualifiers: Aspiration pneumonia type: unspecified Laterality: right Lung location: lower lobe of lung Qualified Code(s): J69.0 - Pneumonitis due to inhalation of food and vomit Is this a current diagnosis for this admission?: YesPlan: Patient with history of dysphagia status post CVA on PEG tube feedings. Head of bed needs to be elevated greater than 30. He will be kept n.p.o. Broad- spectrum IV antibiotics were initiated after blood cultures were obtained. He will be NT suctioned as needed. 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 (3) UTI (urinary tract infection) Qualifiers: Urinary tract infection type: site unspecified Hematuria presence: without hematuria Qualified Code(s): N39.0 - Urinary tract infection, site not specified Is this a current diagnosis for this admission?: YesPlan: Broad-spectrum IV antibiotics (4) Dementia Qualifiers: Dementia type: unspecified type Dementia behavioral disturbance: without behavioral disturbance Qualified Code(s): F03.90 - Unspecified dementia without behavioral disturbance Is this a current diagnosis for this admission?: Yes (5) History of stroke Is this a current diagnosis for this admission?: YesPlan: Patient with history of large hemorrhagic CVA completely aphasic, no spontaneous movement of extremities (6) Anemia of chronic disease Is this a current diagnosis for this admission?: YesPlan: Stable - Time Time Spent with patient: 15-24 minutes Medications reviewed and adjusted accordingly: Yes Anticipated discharge: SNF
--- NOTE | 2017-01-18 09:42 | PDOC PROGRESS REPORT ---
Subjective Progress Note for:: 01/18/17 Subjective:: Patient seen on morning rounds. He is resting in bed. He appears to be in no distress. His discharged was canceled after he had low grade fever, tachypnea and congested cough. He has had a low grade temperature overnight. He is noncommunicative since last CVA. No family is at bedside. Review of systems are unobtainable due to mentation. Physical Exam Vital Signs: Temp Pulse Resp BP Pulse Ox 99.7 F 87 18 152/70 H 94 01/18/17 07:26 01/18/17 07:57 01/18/17 07:57 01/18/17 07:26 01/18/17 07:57 Intake & Output 01/17/17 01/18/17 01/19/17 06:59 06:59 06:59 Intake Total 990 2175 Output Total 850 1450 Balance 140 725 Weight 90.2 kg 90.3 kg General appearance: PRESENT: no acute distress, well-developed, well-nourished Head exam: PRESENT: atraumatic, normocephalic Eye exam: PRESENT: conjunctiva pale, EOMI, PERRLA. ABSENT: scleral icterus Ear exam: PRESENT: normal external ear exam Mouth exam: PRESENT: moist, neck supple, tongue midline Teeth exam: PRESENT: edentulous Neck exam: PRESENT: full ROM Respiratory exam: PRESENT: decreased breath sounds, rhonchi, symmetrical, unlabored Cardiovascular exam: PRESENT: RRR. ABSENT: diastolic murmur, rubs, systolic murmur Pulses: PRESENT: normal dorsalis pedis pul Vascular exam: PRESENT: normal capillary refill GI/Abdominal exam: PRESENT: normal bowel sounds, soft. ABSENT: distended, guarding, mass, organolmegaly, rebound, tenderness Rectal exam: PRESENT: deferred Extremities exam: PRESENT: other - upper arms contracted and flexed Musculoskeletal exam: PRESENT: normal inspection Neurological exam: PRESENT: altered, CN II-XII grossly intact, aphasic Psychiatric exam: PRESENT: flat affect Skin exam: PRESENT: other - stage 2 sacral wound Results Laboratory Results: 01/15/17 06:30 01/16/17 03:50 01/12/17 18:10 Blood Blood Culture - Final NO GROWTH IN 5 DAYS Impressions: Chest X-Ray 01/12/17 17:08 IMPRESSION: Ill-defined airspace opacity noted the right lung base which could represent atelectasis, infiltrate, or edema. Correlate clinically. Assessment & Plan - Diagnosis (1) Aspiration pneumonia Qualifiers: Aspiration pneumonia type: unspecified Laterality: right Lung location: lower lobe of lung Qualified Code(s): J69.0 - Pneumonitis due to inhalation of food and vomit Is this a current diagnosis for this admission?: YesPlan: Patient with history of dysphagia status post CVA on PEG tube feedings. Head of bed needs to be elevated greater than 30. He will be kept n.p.o. Broad- spectrum IV antibiotics were initiated after blood cultures were obtained. He will be NT suctioned as needed. 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 (3) UTI (urinary tract infection) Qualifiers: Urinary tract infection type: site unspecified Hematuria presence: without hematuria Qualified Code(s): N39.0 - Urinary tract infection, site not specified Is this a current diagnosis for this admission?: YesPlan: Broad-spectrum IV antibiotics (4) Dementia Qualifiers: Dementia type: unspecified type Dementia behavioral disturbance: without behavioral disturbance Qualified Code(s): F03.90 - Unspecified dementia without behavioral disturbance Is this a current diagnosis for this admission?: Yes (5) History of stroke Is this a current diagnosis for this admission?: YesPlan: Patient with history of large hemorrhagic CVA completely aphasic, no spontaneous movement of extremities (6) Anemia of chronic disease Is this a current diagnosis for this admission?: YesPlan: Stable - Time Time Spent with patient: 25-34 minutes Medications reviewed and adjusted accordingly: Yes Anticipated discharge: SNF Within: within 24 hours
[2017-01-18] MEDS: METOPROLOL TARTRATE 25 MG TABLET PEG SCH ×2 (10:14→22:36)
[2017-01-18] MEDS: LISINOPRIL 10 MG TABLET PEG SCH (10:14)
[2017-01-18] MEDS: LEVOFLOXACIN 500 MG TABLET PEG SCH (10:14)
[2017-01-18] MEDS: FAMOTIDINE 20 MG TABLET PEG SCH ×2 (10:14→22:38)
[2017-01-18] MEDS: LEVETIRACETAM ORAL SOLN 500 MG/5 ML UDCUP PEG SCH ×2 (10:15→22:38)
[2017-01-18] MEDS: CEFTRIAXONE 1 GM/D5W RTU 50 ML IV SCH (10:15)
[2017-01-18] MEDS: ASCORBIC ACID 500 MG TABLET PEG SCH (10:15)
--- NOTE | 2017-01-18 10:32 | RADIOLOGY REPORT (SQ) ---
EXAM DESCRIPTION: CHEST SINGLE VIEW COMPLETED DATE/TIME: 01/18/2017 10:09 am REASON FOR STUDY: Congested cough and fever COMPARISON: 01/12/2017 NUMBER OF VIEWS: One view. TECHNIQUE: Single frontal radiographic image of the chest acquired. LIMITATIONS: Positioning. FINDINGS: LUNGS AND PLEURA: Increasing airspace opacity in the right upper lung. Low lung volumes. Blunting of the right costophrenic angle. MEDIASTINUM AND HEART: Stable heart size and mediastinal structures. BONY STRUCTURES: No acute findings. HARDWARE: None. OTHER: No other significant finding. IMPRESSION: Rehydration versus progressing pneumonia right upper lobe. TECHNICAL DOCUMENTATION: JOB ID: [id number]
[2017-01-18] MEDS: ACETAMINOPHEN SOLN 325 MG/10.15 ML UDCUP PEG PRN (18:03)
[2017-01-18] MEDS: INSULIN GLARGINE,HUM.REC.ANLOG 1,000 UNIT/10 ML UNIT SUBCUT SCH (22:59)
[2017-01-19] MEDS: INSULIN LISPRO 100 UNIT/ML 3 ML VIAL SUBCUT PRN ×3 (01:23→18:00)
[2017-01-19] MEDS: GUAIFENESIN SYRP 200 MG/10 ML UDC PEG SCH ×3 (05:49→17:52)
[2017-01-19] MEDS: ISOSORB DINIT/HYDRALAZINE HCL 20-37.5 MG TABLET PEG SCH ×3 (05:50→21:55)
[2017-01-19] MEDS: ACETAMINOPHEN SOLN 325 MG/10.15 ML UDCUP PEG PRN ×2 (06:05→17:52)
[2017-01-19] MEDS: HEPARIN SOD (PORCINE) 5,000 UNIT/ML 1 ML SYRINGE SUBCUT SCH ×3 (06:55→21:59)
[2017-01-19] MEDS: IPRATROPIUM/ALBUTEROL 0.5-2.5 MG/3 ML AMPUL NEB SCH ×3 (08:34→23:37)
[2017-01-19] MEDS: CEFTRIAXONE 1 GM/D5W RTU 50 ML IV SCH (09:00)
[2017-01-19] MEDS: LEVOFLOXACIN 500 MG TABLET PEG SCH (09:00)
[2017-01-19] MEDS: FAMOTIDINE 20 MG TABLET PEG SCH ×2 (09:00→21:55)
[2017-01-19] MEDS: ASCORBIC ACID 500 MG TABLET PEG SCH (09:00)
[2017-01-19] MEDS: LANSOPRAZOLE 15 MG TAB.RAP.DR PEG SCH (09:00)
[2017-01-19] MEDS: LEVETIRACETAM ORAL SOLN 500 MG/5 ML UDCUP PEG SCH ×2 (09:01→21:56)
[2017-01-19] MEDS: LISINOPRIL 10 MG TABLET PEG SCH (09:01)
[2017-01-19] MEDS: METOPROLOL TARTRATE 25 MG TABLET PEG SCH ×2 (09:01→21:57)
--- NOTE | 2017-01-19 13:58 | PDOC PROGRESS REPORT ---
Subjective Progress Note for:: 01/19/17 Subjective:: Patient seen on morning rounds. He is resting in bed. He appears to be in no distress. His discharged was canceled after he had low grade fever, tachypnea and congested cough. He is noncommunicative since last CVA. No family is at bedside. Review of systems are unobtainable due to mentation. Physical Exam Vital Signs: Temp Pulse Resp BP Pulse Ox 98.5 F 80 24 H 133/64 H 97 01/19/17 11:25 01/19/17 11:25 01/19/17 11:25 01/19/17 11:25 01/19/17 11:25 Intake & Output 01/18/17 01/19/17 01/20/17 06:59 06:59 06:59 Intake Total 2175 1980 60 Output Total 1450 2000 400 Balance 725 -20 -340 Weight 90.3 kg 90.6 kg General appearance: PRESENT: no acute distress, well-developed, well-nourished Head exam: PRESENT: atraumatic, normocephalic Eye exam: PRESENT: conjunctiva pale Ear exam: PRESENT: normal external ear exam Mouth exam: PRESENT: moist, tongue midline Neck exam: ABSENT: carotid bruit, JVD, lymphadenopathy, thyromegaly Respiratory exam: PRESENT: rhonchi - bilaterally, symmetrical, unlabored Cardiovascular exam: PRESENT: RRR. ABSENT: diastolic murmur, rubs, systolic murmur Pulses: PRESENT: normal carotid pulses, normal radial pulses Vascular exam: PRESENT: normal capillary refill GI/Abdominal exam: PRESENT: normal bowel sounds, soft, other - PEG tube patent. ABSENT: distended, guarding, mass, organolmegaly, rebound, tenderness Rectal exam: PRESENT: deferred Extremities exam: PRESENT: other - Bilateral upper extremities contracted, lower extremities flaccid Neurological exam: PRESENT: altered, CN II-XII grossly intact, aphasic - no response to verbal stimuli Psychiatric exam: PRESENT: flat affect Skin exam: PRESENT: other - stage II sacral wound Results Laboratory Results: 01/15/17 06:30 01/16/17 03:50 Impressions: Chest X-Ray 01/18/17 00:00 IMPRESSION: Rehydration versus progressing pneumonia right upper lobe. Assessment & Plan - Diagnosis (1) Aspiration pneumonia Qualifiers: Aspiration pneumonia type: unspecified Laterality: right Lung location: lower lobe of lung Qualified Code(s): J69.0 - Pneumonitis due to inhalation of food and vomit Is this a current diagnosis for this admission?: YesPlan: Patient with history of dysphagia status post CVA on PEG tube feedings. Head of bed needs to be elevated greater than 30. He will be kept n.p.o. Broad- spectrum IV antibiotics were initiated after blood cultures were obtained. He will be NT suctioned as needed. 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 (3) UTI (urinary tract infection) Qualifiers: Urinary tract infection type: site unspecified Hematuria presence: without hematuria Qualified Code(s): N39.0 - Urinary tract infection, site not specified Is this a current diagnosis for this admission?: YesPlan: Broad-spectrum IV antibiotics (4) Dementia Qualifiers: Dementia type: unspecified type Dementia behavioral disturbance: without behavioral disturbance Qualified Code(s): F03.90 - Unspecified dementia without behavioral disturbance Is this a current diagnosis for this admission?: Yes (5) History of stroke Is this a current diagnosis for this admission?: YesPlan: Patient with history of large hemorrhagic CVA completely aphasic, no spontaneous movement of extremities (6) Anemia of chronic disease Is this a current diagnosis for this admission?: YesPlan: Stable - Time Time Spent with patient: 25-34 minutes Critical Time spent with patient: 15-24 minutes Medications reviewed and adjusted accordingly: Yes Anticipated discharge: SNF Within: within 24 hours
[2017-01-20] MEDS: INSULIN GLARGINE,HUM.REC.ANLOG 1,000 UNIT/10 ML UNIT SUBCUT SCH (00:37)
[2017-01-20] MEDS: GUAIFENESIN SYRP 200 MG/10 ML UDC PEG SCH ×3 (00:43→12:56)
[2017-01-20] MEDS: HEPARIN SOD (PORCINE) 5,000 UNIT/ML 1 ML SYRINGE SUBCUT SCH (05:13)
[2017-01-20] MEDS: ISOSORB DINIT/HYDRALAZINE HCL 20-37.5 MG TABLET PEG SCH (05:15)
[2017-01-20] MEDS: IPRATROPIUM/ALBUTEROL 0.5-2.5 MG/3 ML AMPUL NEB SCH (08:29)
[2017-01-20] MEDS: INSULIN LISPRO 100 UNIT/ML 3 ML VIAL SUBCUT PRN ×2 (08:32→12:56)
[2017-01-20] MEDS: LANSOPRAZOLE 15 MG TAB.RAP.DR PEG SCH (08:32)
[2017-01-20] MEDS: LISINOPRIL 10 MG TABLET PEG SCH (10:21)
[2017-01-20] MEDS: LEVOFLOXACIN 500 MG TABLET PEG SCH (10:22)
[2017-01-20] MEDS: FAMOTIDINE 20 MG TABLET PEG SCH (10:22)
[2017-01-20] MEDS: METOPROLOL TARTRATE 25 MG TABLET PEG SCH (10:22)
[2017-01-20] MEDS: ASCORBIC ACID 500 MG TABLET PEG SCH (10:23)
[2017-01-20] MEDS: LEVETIRACETAM ORAL SOLN 500 MG/5 ML UDCUP PEG SCH (10:23)
[2017-01-20 13:25] VITALS: BP 136/70
== END 2017-01-20 14:16 | DRG 871 ==
LOC: ER 16:48 → EH 17:57 → 3N 22:00
PROVIDERS: ADMIT Family Medicine; ATTEND Family Medicine
PROC: 0D20XUZ Change Feeding Device in Upper Intestinal Tract, External Approach (ICD-10-PCS; principal; 2017-01-15)
PROC: 2W05X5Z Change Packing Material on Back (ICD-10-PCS; 2017-01-15)
DX: A41.9 Sepsis, unspecified organism (principal); J69.0 Pneumonitis due to inhalation of food and vomit; L89.154 Pressure ulcer of sacral region, stage 4; N39.0 Urinary tract infection, site not specified; F03.90 Unspecified dementia, unspecified severity, without behavioral disturbance, psychotic disturbance, mood disturbance, and anxiety; E78.5 Hyperlipidemia, unspecified; I10 Essential (primary) hypertension; E11.9 Type 2 diabetes mellitus without complications; K21.9 Gastro-esophageal reflux disease without esophagitis; L89.322 Pressure ulcer of left buttock, stage 2; L89.312 Pressure ulcer of right buttock, stage 2; D63.8 Anemia in other chronic diseases classified elsewhere; J44.9 Chronic obstructive pulmonary disease, unspecified; N40.0 Benign prostatic hyperplasia without lower urinary tract symptoms; Z93.1 Gastrostomy status; Z79.4 Long term (current) use of insulin; Z79.51 Long term (current) use of inhaled steroids; Z79.899 Other long term (current) drug therapy; Z86.73 Personal history of transient ischemic attack (TIA), and cerebral infarction without residual deficits
CPT/HCPCS: 36415; 36600; 71010; 80053; 80202; 81001; 82550; 82553; 82565; 82803; 82962; 83605; 83735; 83880; 84484; 85025; 85610; 87040; 87086; 87088; 87186; 93005; 93010; 94640; 94660; 99291; A6266; J0696; J1644; J1815; J2543; J3370; J3480; J3490; J7030; J7040; J7060; J7620

== ENCOUNTER 2017-02-11 20:39 | Inpatient (IN) | payer OTHER, MEDICARE ==
[2017-02-11 21:10] LABS: ABSOLUTE EOSINOPHILS # (AUTO) 0.1 10^3/uL (0.0-0.6); ABSOLUTE LYMPHOCYTES (AUTO) 0.5 10^3/uL (0.5-4.7); ABSOLUTE MONOCYTES (AUTO) 0.6 10^3/uL (0.1-1.4); ABSOLUTE NEUT (AUTO) 9.2 10^3/uL (1.7-8.2); BASOPHILS % (AUTO) 0.3 % (0-2); EOSINOPHILS % (AUTO) 1.1 % (0-6); HEMATOCRIT 36.1 % (37.9-51.0); HEMOGLOBIN 11.3 g/dL (13.5-17.0); HGB HCT DIFFERENCE -2.2; LYMPHOCYTES % (AUTO) 5.1 % (13-45); MEAN CORPUSCULAR HEMOGLOBIN 28.1 pg (27.0-33.4); MEAN CORPUSCULAR HGB CONC 31.3 g/dL (32.0-36.0); MEAN CORPUSCULAR VOLUME 90 fl (80-97); MONOCYTES % (AUTO) 5.4 % (3-13); RED BLOOD COUNT 4.03 10^6/uL (4.35-5.55); RED CELL DISTRIBUTION WIDTH 17.6 % (11.5-14.0); SEGMENTED NEUTROPHILS % (AUTO) 88.1 % (42-78); WHITE BLOOD COUNT 10.5 10^3/uL (4.0-10.5)
[2017-02-11 21:13] LABS: VENOUS BLOOD BASE EXCESS 8.3 mmol/L; VENOUS BLOOD PCO2 52.5 mmHg (35-63); VENOUS BLOOD PH 7.43 (7.30-7.42)
[2017-02-11 21:15] LABS: PROTHROMBIN TIME 15.5 SEC (11.4-15.4)
[2017-02-11 21:32] LABS: ALANINE AMINOTRANSFERASE 33 U/L (21-72); ALBUMIN 3.5 g/dL (3.5-5.0); ALKALINE PHOSPHATASE 150 U/L (38-126); ANION GAP 11 (5-19); ASPARTATE AMINO TRANSFERASE 30 U/L (17-59); BILIRUBIN,DIRECT 0.4 mg/dL (0.0-0.4); BILIRUBIN,TOTAL 0.5 mg/dL (0.2-1.3); BLOOD UREA NITROGEN 60 mg/dL (7-20); CARBON DIOXIDE 32 mmol/L (22-30); CHLORIDE 97 mmol/L (98-107); CREATININE RESULT 0.67 mg/dL (0.52-1.25); GLUCOSE 216 mg/dL (75-110); POTASSIUM 4.3 mmol/L (3.6-5.0); TOTAL PROTEIN 8.7 g/dL (6.3-8.2)
[2017-02-11 21:42] LABS: APPEARANCE,URINE SLIGHTLY-CLOUDY; BILIRUBIN,URINE NEGATIVE (NEGATIVE); GLUCOSE, URINE NEGATIVE (NEGATIVE); KETONES,URINE NEGATIVE (NEGATIVE); LEUKOCYTE ESTERASE,URINE LARGE (NEGATIVE); NITRITE,URINE NEGATIVE (NEGATIVE); PROTEIN,URINE 30 mg/dL (NEGATIVE); URINE SPECIFIC GRAVITY 1.019; UROBILINOGEN,URINE NEGATIVE mg/dL (<2.0)
[2017-02-11] MEDS ORDERED: NORMAL SALINE 1000 ML 1,000 ML IV ONE (22:06)
--- NOTE | 2017-02-11 22:06 | RADIOLOGY REPORT (SQ) ---
EXAM DESCRIPTION: CHEST SINGLE VIEW COMPLETED DATE/TIME: 02/11/2017 9:45 pm REASON FOR STUDY: difficulty breathing COMPARISON: 01/18/2017 EXAM PARAMETERS: NUMBER OF VIEWS: One view. TECHNIQUE: Single frontal radiographic view of the chest acquired. RADIATION DOSE: NA LIMITATIONS: None. FINDINGS: LUNGS AND PLEURA: Right upper lobe airspace disease is significantly improved. Fullness r emains in the right perihilar region and right hilar region. MEDIASTINUM AND HILAR STRUCTURES: No masses. Contour normal. HEART AND VASCULAR STRUCTURES: Heart normal in size. Normal vasculature. BONES: No acute findings. HARDWARE: None in the chest. OTHER: No other significant finding. IMPRESSION: Resolving right upper lobe and right perihilar infiltrate. TECHNICAL DOCUMENTATION: JOB ID: [id number]
[2017-02-11] MEDS ORDERED: PIPERACILLIN/TAZOBACTAM 3.375 GM VIAL IV ONE (22:07)
[2017-02-11] MEDS ORDERED: VANCOMYCIN HCL INJ 1000 MG VIAL IV ONE (22:27)
--- NOTE | 2017-02-11 22:29 | ER Document Report ---
ED General - General Chief Complaint: Fever Stated Complaint: VOMITTING Time Seen by Provider: 02/11/17 20:58 Cannot obtain history due to: Dementia, Other - Nonverbal Notes: Patient is a 76-year-old male status post CVA with residual aphasia, bedbound, lives in [facility] who presents with concerns of fever, increased work of breathing and coughing. Patient has been hospitalized recurrently for sepsis due to urinary tract infections versus aspiration pneumonias including at the end of December. Patient is completely nonverbal and unable to contribute any history. His daughter at the bedside confirms that he is full code and they want all measures taken to keep him alive. TRAVEL OUTSIDE OF THE [place] IN LAST 30 DAYS: No - Related Data Allergies/Adverse Reactions: divalproex sodium [From Depakote] Allergy (Verified 01/17/17 17:13) oxycodone [Oxycodone] Adverse Reaction (Intermediate, Verified 01/12/17 19:24) agitation simvastatin [From Zocor] Adverse Reaction (Unknown, Verified 01/12/17 19:24) dysarthria Past Medical History - General Information source: POA - Power of Siding Applicator, Emergency Med Personnel Cannot obtain history due to: Dementia - Social History Smoking Status: Unknown if Ever Smoked Frequency of alcohol use: None Drug Abuse: None Lives with: [facility] Family History: Reviewed & Not Pertinent, Other - Unable to obtain given mental status - Past Medical History Cardiac Medical History: Reports: Hx Hypercholesterolemia, Hx Hypertension Pulmonary Medical History: Reports: Hx COPD, Hx Pneumonia Neurological Medical History: Reports: Hx Cerebrovascular Accident - CVA in 2013 , History of subarachnoid hemorrhage in 2016, Hx Seizures Endocrine Medical History: Reports: Hx Diabetes Mellitus Type 2 Renal/ Medical History: Reports: Hx Benign Prostatic Hyperplasia GI Medical History: Reports: Hx Gastroesophageal Reflux Disease - PEG tube post CVA Musculoskeltal Medical History: Reports Hx Muscle Weakness Psychiatric Medical History: Reports: Hx Dementia, Hx Depression Past Surgical History: Reports: Hx Abdominal Surgery - Feeding gastrostomy tube , Other - PEG tube placed - Immunizations Hx Diphtheria, Pertussis, Tetanus Vaccination: Yes Hx Pneumococcal Vaccination: 05/25/14 Review of Systems - Review of Systems -: Yes ROS unobtainable due to patient's medical condition Physical Exam - Vital signs Vitals: Resp Pulse Ox 26 H 95 02/11/17 20:48 02/11/17 20:48 Interpretation: Hypotensive, Tachypneic Notes: PHYSICAL EXAMINATION: GENERAL: Chronically ill in appearance, somnolent, nonverbal HEAD: Atraumatic, normocephalic. EYES: Pupils equal round and reactive to light, sclera anicteric, conjunctiva are normal. ENT: nares patent, oropharynx clear without exudates. Moderately dry mucous membranes. NECK: supple without lymphadenopathy LUNGS: Diffuse rhonchi in all lung carter. Diminished breath sounds throughout. HEART: Regular rate and rhythm without murmurs ABDOMEN: Soft, nontender, normoactive bowel sounds. No guarding, no rebound. No masses appreciated. EXTREMITIES: Moves all 4 extremities are contracted, muscle wasting throughout. NEUROLOGICAL: Unable to complete secondary to patient's baseline mental status. PSYCH: Nonverbal SKIN: Warm, Dry, normal turgor, stage III to IV decubitus ulcer on the sacrum Course - Re-evaluation Re-evalutation: 02/11/17 22:00 Patient presents with symptoms most consistent with a right middle lobe pneumonia likely secondary to recurrent aspiration. Patient initially a temp of 101.2 with associated mild tachypnea and mild hypotension. On initial assessment, patient is noncommunicative, contracted, and the right lateral decubitus position. He has a stage IV decubitus ulcer over the sacrum. He has diminished breath sounds in all lung carter although lung exam is difficult secondary to patient's ability to comply. Daughter at the bedside states that the patient's mental status is at his baseline. He does use 3 L by nasal cannula at all times. Chest x-ray does demonstrate a right upper and middle lobe infiltrate, right upper lobe actually is improving relative to left chest x -ray although right middle lobe appears to either be new or on resolved from prior. Urinalysis pulled from Vazquez catheter demonstrates a possible infection as well. He has been started on Zosyn and vancomycin as well as IV fluids. Will require admission to the hospital. - Vital Signs Vital signs: Temp Pulse Resp BP Pulse Ox 98.8 F 77 15 107/51 L 98 02/11/17 21:14 02/12/17 01:45 02/12/17 01:45 02/11/17 23:02 02/12/17 01:45 - Laboratory Result Diagrams: 02/11/17 20:50 02/11/17 20:50 Laboratory results interpreted by me: 02/11/17 02/11/17 02/11/17 20:50 20:50 20:50 RBC 4.03 L Hgb 11.3 L Hct 36.1 L MCHC 31.3 L RDW 17.6 H Plt Count 125 L Seg Neutrophils % 88.1 H Lymphocytes % 5.1 L Absolute Neutrophils 9.2 H PT 15.5 H VBG pH VBG HCO3 Chloride 97 L Carbon Dioxide 32 H BUN 60 H Glucose 216 H Alkaline Phosphatase 150 H Total Protein 8.7 H Urine Protein Urine Blood Ur Leukocyte Esterase Urine Ascorbic Acid 02/11/17 02/11/17 20:50 21:18 RBC Hgb Hct MCHC RDW Plt Count Seg Neutrophils % Lymphocytes % Absolute Neutrophils PT VBG pH 7.43 H VBG HCO3 34.0 H Chloride Carbon Dioxide BUN Glucose Alkaline Phosphatase Total Protein Urine Protein 30 H Urine Blood SMALL H Ur Leukocyte Esterase LARGE H Urine Ascorbic Acid 40 H - Diagnostic Test Radiology reviewed: Image reviewed, Reports reviewed Radiology results interpreted by me: 02/12/17 02:18 Chest x-ray: Right middle lobe infiltrate - EKG Interpretation by Me Additional EKG results interpreted by me: 02/12/17 02:19 Normal sinus rhythm. Rate 75. No ST elevations or depressions. QTC is 420. Discharge - Discharge Clinical Impression: Aspiration pneumonia Qualifiers: Aspiration pneumonia type: unspecified Laterality: right Lung location: lower lobe of lung Qualified Code(s): J69.0 - Pneumonitis due to inhalation of food and vomit Dementia Qualifiers: Dementia type: unspecified type Dementia behavioral disturbance: without behavioral disturbance Qualified Code(s): F03.90 - Unspecified dementia without behavioral disturbance Sepsis Qualifiers: Sepsis type: sepsis due to unspecified organism Qualified Code(s): A41.9 - Sepsis, unspecified organism Disposition: ADMITTED INPATIENT Admitting Provider: Wilfrid Del Cid
[2017-02-11] MEDS ORDERED: IPRATROPIUM/ALBUTEROL 0.5-2.5 MG/3 ML AMPUL NEB PRN (22:34)
[2017-02-11] MEDS ORDERED: INSULIN LISPRO 100 UNIT/ML 3 ML VIAL SUBCUT PRN (22:35)
[2017-02-11] MEDS ORDERED: GLUCAGON,HUMAN RECOMB 1 MG INJ IM PRN (22:35)
[2017-02-11] MEDS ORDERED: DEXTROSE 40% GEL 15 GM TUBE PO PRN ×2 (22:35)
[2017-02-11] MEDS ORDERED: DEXTROSE 50%-WATER 25 GM/50 ML DISP.SYRIN IV PRN ×2 (22:35)
[2017-02-11] MEDS ORDERED: VANCOMYCIN HCL 0 MG in DEXTROSE 5%-WATER 250 ML IV NR (22:45)
[2017-02-11] MEDS ORDERED: NORMAL SALINE 1000 ML 1,000 ML IV SCH (22:45)
[2017-02-11] MEDS ORDERED: HYDROCORTISONE SOD SUCCINATE INJ/PF 100 MG/2 ML SDV IV ONE (23:00)
[2017-02-12] MEDS ORDERED: HYDROCORTISONE SOD SUCCINATE INJ/PF 100 MG/2 ML SDV ONE (01:09)
[2017-02-12] MEDS: IPRATROPIUM/ALBUTEROL 0.5-2.5 MG/3 ML AMPUL NEB SCH ×4 (01:23→20:26)
[2017-02-12] MEDS ORDERED: PIPERACILLIN/TAZOBACTAM 4.5 GM VIAL IV PRN (02:00)
[2017-02-12] MEDS: PIPERACILLIN SODIUM/TAZOBACTAM 4.5 GM in NORMAL SALINE 100 ML IV SCH ×4 (02:37→21:32)
[2017-02-12] MEDS ORDERED: NORMAL SALINE 1000 ML 1,000 ML IV SCH (05:30)
--- NOTE | 2017-02-12 05:33 | PDOC H&P ---
History of Present Illness Admission Date/PCP: 02/11/17 22:36 MARGARITA ZARATE MD Patient complains of: Vomiting History of Present Illness: THAD JOY is a 76 year old male with an extensive past medical history status post CVA with residual right-sided contracture, expressive and receptive aphasia, n.p.o. with PEG and recurrent aspiration pneumonia, stage IV sacral decubiti, urinary tract infection with indwelling Vazquez with torn urethra on prior admission and dementia. He is a long-term care home resident at [facility] noted to have vomiting and tachypnea brought to the emergency room for evaluation he was found to have a right-sided infiltrate suggestive of aspiration. He started on Zosyn and vancomycin referred to the hospitalist for admission. Though the patient is completely nonresponsive, nonverbal, PEG dependent and contracted patient's medical power of senior it auditor request full CODE STATUS. Past Medical History Cardiac Medical History: Reports: Hyperlipidema, Hypertension Pulmonary Medical History: Reports: Chronic Obstructive Pulmonary Disease (COPD) , Pneumonia Neurological Medical History: Reports: Seizures Endocrine Medical History: Reports: Diabetes Mellitus Type 2 GI Medical History: Reports: Gastroesophageal Reflux Disease - PEG tube post CVA Psychiatric Medical History: Reports: Dementia, Depression Hematology: Reports: Anemia Past Surgical History Past Surgical History: Reports: Other - PEG tube placed Social History Information Source: POA - Power of Catheter Finisher And Inspector - Daughter, H Records Lives with: [facility] Smoking Status: Unknown if Ever Smoked Frequency of Alcohol Use: None Hx Recreational Drug Use: No Drugs: None Hx Prescription Drug Abuse: No - Advance Directive Resuscitation Status: Full Code Family History Family History: Other - Unable to obtain given mental status Parental Family History Reviewed: Yes Children Family History Reviewed: Yes Sibling(s) Family History Reviewed.: Yes Medication/Allergy Home Medications: Acetaminophen [Tylenol 325 mg Tablet] 650 mg PEG Q6HP PRN 01/13/17 Ascorbic Acid [Vitamin C 500 mg Tablet] 500 mg PEG DAILY 01/13/17 Cranberry Extract [Cranberry 200 mg Capsule] 400 mg PEG DAILY 01/13/17 Famotidine [Pepcid 20 mg Tablet] 20 mg PEG Q12 01/13/17 Guaifenesin [Siltussin SA] 300 mg PEG Q6 01/13/17 Insulin Glargine,Hum.rec.anlog [Lantus Insulin 100 Unit/1 ml 10 ml] 24 unit SUBCUT QHS 01/13/17 Ipratropium/Albuterol Sulfate [Duoneb 3 ml Ampul] 3 ml NEB RTQ6HP PRN 01/13/17 Isosorb Dinit/Hydralazine HCl [Bidil 20-37.5 mg Tablet] 1 tab PEG Q8 01/13/17 Lactulose [Enulose 10 gm/15 mL Oral Solution] 20 gm PEG BID 01/13/17 Levetiracetam [Keppra] 750 mg PEG Q12 01/13/17 Lisinopril [Prinivil 10 mg Tablet] 20 mg PEG DAILY 01/13/17 Metoprolol Tartrate [Lopressor 25 mg Tablet] 12.5 mg PEG Q12 01/13/17 Nitroglycerin [Nitrostat] 0.4 mg SL Q5MP PRN 01/13/17 Omeprazole 20 mg PEG Q6AM 01/13/17 Polyethylene Glycol 3350 [Miralax Powder 17 gm/Packet] 1 packet PEG DAILY Zinc Sulfate [Zinc-220 Capsule] 220 mg PEG DAILY 01/13/17 Allergies/Adverse Reactions: divalproex sodium [From Depakote] Allergy (Verified 01/17/17 17:13) oxycodone [Oxycodone] Adverse Reaction (Intermediate, Verified 01/12/17 19:24) agitation simvastatin [From Zocor] Adverse Reaction (Unknown, Verified 01/12/17 19:24) dysarthria Review of Systems ROS unobtainable: Due to mental status - Unresponsive Physical Exam Vital Signs: Temp Pulse Resp BP Pulse Ox 98.8 F 77 15 107/51 L 98 02/11/17 21:14 02/12/17 01:45 02/12/17 01:45 02/11/17 23:02 02/12/17 01:45 General appearance: PRESENT: no acute distress, thin, other - Temporal wasting, contracted Head exam: PRESENT: atraumatic, normocephalic, other - Right-sided facial droop Eye exam: PRESENT: conjunctiva pink, EOMI, PERRLA. ABSENT: scleral icterus Ear exam: PRESENT: normal external ear exam Mouth exam: PRESENT: moist, tongue midline Neck exam: ABSENT: carotid bruit, JVD, lymphadenopathy, thyromegaly Respiratory exam: PRESENT: accessory muscle use, crackles, rales, retraction, rhonchi, tachypnea. ABSENT: chest wall tenderness Cardiovascular exam: PRESENT: RRR. ABSENT: diastolic murmur, rubs, systolic murmur Pulses: PRESENT: normal dorsalis pedis pul Vascular exam: PRESENT: other - Chronic changes of vascular insufficiency of lower extremity GI/Abdominal exam: PRESENT: normal bowel sounds, soft. ABSENT: distended, guarding, mass, organolmegaly, rebound, tenderness Rectal exam: PRESENT: deferred Extremities exam: PRESENT: full ROM. ABSENT: calf tenderness, clubbing, pedal edema Musculoskeletal exam: PRESENT: other - Bedbound, contracted with severe atrophy Neurological exam: PRESENT: awake, aphasic. ABSENT: oriented to person, oriented to place, oriented to time, oriented to situation, reflexes normal, abnormal gait, CN II-XII grossly intact Psychiatric exam: PRESENT: flat affect. ABSENT: homicidal ideation, suicidal ideation Skin exam: PRESENT: other - Stage IV sacral decubiti, no heel ulcer Results Impressions: Chest X-Ray 02/11/17 20:55 IMPRESSION: Resolving right upper lobe and right perihilar infiltrate. Assessment & Plan - Diagnosis (1) Aspiration pneumonia Qualifiers: Aspiration pneumonia type: unspecified Laterality: right Lung location: lower lobe of lung Qualified Code(s): J69.0 - Pneumonitis due to inhalation of food and vomit Is this a current diagnosis for this admission?: YesPlan: History suggestive of aspiration of PEG tube feeding, multiple previous episodes , on continuous feeding. Continue treatment for both aspiration and presumed healthcare associated pneumonia given care home status. I am concerned for high likelihood of recurrence and persistent CODE STATUS. I have explained this to patient's medical power of senior it auditor and daughter. (2) Dementia Qualifiers: Dementia type: unspecified type Dementia behavioral disturbance: without behavioral disturbance Qualified Code(s): F03.90 - Unspecified dementia without behavioral disturbance Is this a current diagnosis for this admission?: YesPlan: Supportive care (3) Sepsis Qualifiers: Sepsis type: sepsis due to unspecified organism Qualified Code(s): A41.9 - Sepsis, unspecified organism Is this a current diagnosis for this admission?: YesPlan: Secondary to pneumonia, IV fluid challenge and will evaluate random cortisol. Continue treating underlying cause and follow-up labs and culture (4) Osteomyelitis Is this a current diagnosis for this admission?: YesPlan: Surgical consultation (5) Sacral decubitus ulcer, stage IV Is this a current diagnosis for this admission?: YesPlan: Surgical consultation - Time Time Spent: 50 to 70 Minutes - Inpatient Certification Medical Necessity: Need Close Monitoring Due to Risk of Patient Decompensation
[2017-02-12 06:44] LABS: HEMATOCRIT 31.5 % (37.9-51.0); HEMOGLOBIN 10.2 g/dL (13.5-17.0); HGB HCT DIFFERENCE -0.9; MEAN CORPUSCULAR HEMOGLOBIN 28.4 pg (27.0-33.4); MEAN CORPUSCULAR HGB CONC 32.2 g/dL (32.0-36.0); MEAN CORPUSCULAR VOLUME 88 fl (80-97); RED BLOOD COUNT 3.57 10^6/uL (4.35-5.55); RED CELL DISTRIBUTION WIDTH 17.7 % (11.5-14.0); WHITE BLOOD COUNT 8.4 10^3/uL (4.0-10.5)
[2017-02-12 07:09] LABS: ANION GAP 11 (5-19); BLOOD UREA NITROGEN 43 mg/dL (7-20); CALCIUM 9.3 mg/dL (8.4-10.2); CARBON DIOXIDE 30 mmol/L (22-30); CHLORIDE 100 mmol/L (98-107); CREATININE RESULT 0.67 mg/dL (0.52-1.25); GLUCOSE 223 mg/dL (75-110); POTASSIUM 4.4 mmol/L (3.6-5.0); SODIUM 140.8 mmol/L (137-145)
[2017-02-12 07:22] LABS: BAND NEUTROPHILS % (MANUAL) 1 % (3-5); BASOPHILS % (MANUAL) 0 % (0-2); EOSINOPHILS % (MANUAL) 0 % (0-6); LYMPHOCYTES % (MANUAL) 1 % (13-45); TOTAL CELLS COUNTED 100
[2017-02-12 07:23] LABS: ANISOCYTOSIS 1+; HYPOCHROMASIA SLIGHT; TOXIC GRANULATION SLIGHT
--- NOTE | 2017-02-12 08:42 | EKG REPORT ---
SEVERITY:- OTHERWISE NORMAL ECG - SINUS RHYTHM ATRIAL PREMATURE COMPLEX : Confirmed by: Dahlia Oliver MD 12-Feb-2017 08:42:06
[2017-02-12] MEDS ORDERED: VANCOMYCIN HCL 750 MG in DEXTROSE 5%-WATER 250 ML IV SCH (10:00)
[2017-02-12] MEDS: ASCORBIC ACID 500 MG TABLET PEG SCH (10:40)
[2017-02-12] MEDS: HEPARIN SOD (PORCINE) 5,000 UNIT/ML 1 ML SYRINGE SUBCUT SCH ×3 (10:40→22:01)
[2017-02-12] MEDS: LEVETIRACETAM ORAL SOLN 500 MG/5 ML UDCUP PEG SCH ×2 (10:44→22:14)
[2017-02-12] MEDS: VANCOMYCIN HCL 750 MG in DEXTROSE 5%-WATER 250 ML IV SCH ×2 (14:18→22:20)
--- NOTE | 2017-02-12 15:36 | Physician Advisory Note ---
Physician Advisor ProgressNote .: Pursuant to the plan for [facility], I have reviewed the medical record for this patient. Physician Advisor Statement: Beautiful documentation of specific co-morbidities in H&P. Thanks! CK
--- NOTE | 2017-02-12 19:45 | PDOC PROGRESS REPORT ---
Subjective Progress Note for:: 02/12/17 Subjective:: Unable to obtain review of systems from patient based on his mental status. Physical Exam Vital Signs: Temp Pulse Resp BP Pulse Ox 98.1 F 78 18 142/74 H 99 02/12/17 18:15 02/12/17 18:15 02/12/17 18:15 02/12/17 18:15 02/12/17 18:15 Exam: GENERAL: No acute distress HEENT: Conjunctiva clear, nonicteric, dry mucous membranes, no JVD, midline trachea RESPIRATORY: Basilar rhonchi CARDIAC: Regular rate and rhythm, no murmurs/gallops/rubs ABDOMEN: Soft, nondistended, hypoactive bowel sounds, no rebound, no guarding EXTREMETIES: contracted with muscle wasting NEUROLOGIC: contracted with muscle wasting of bue, aphasia SKIN: Stage iv decubitus Results Laboratory Results: 02/12/17 06:15 02/12/17 06:15 02/12/17 02/12/17 06:15 06:15 WBC 8.4 RBC 3.57 L Hgb 10.2 L Hct 31.5 L MCV 88 MCH 28.4 MCHC 32.2 RDW 17.7 H Plt Count 120 L Seg Neutrophils % Not Reportable Lymphocytes % Not Reportable Monocytes % Not Reportable Eosinophils % Not Reportable Basophils % Not Reportable Absolute Neutrophils Not Reportable Absolute Lymphocytes Not Reportable Absolute Monocytes Not Reportable Absolute Eosinophils Not Reportable Absolute Basophils Not Reportable Sodium 140.8 Potassium 4.4 Chloride 100 Carbon Dioxide 30 Anion Gap 11 BUN 43 H Creatinine 0.67 Est GFR ( Amer) > 60 Est GFR (Non-Af Amer) > 60 Glucose 223 H Calcium 9.3 Impressions: Chest X-Ray 02/11/17 20:55 IMPRESSION: Resolving right upper lobe and right perihilar infiltrate. Assessment & Plan - Diagnosis (1) Aspiration pneumonia Qualifiers: Aspiration pneumonia type: unspecified Laterality: right Lung location: lower lobe of lung Qualified Code(s): J69.0 - Pneumonitis due to inhalation of food and vomit Is this a current diagnosis for this admission?: Yes (2) Dementia Qualifiers: Dementia type: unspecified type Dementia behavioral disturbance: without behavioral disturbance Qualified Code(s): F03.90 - Unspecified dementia without behavioral disturbance Is this a current diagnosis for this admission?: Yes (3) Sepsis Qualifiers: Sepsis type: sepsis due to unspecified organism Qualified Code(s): A41.9 - Sepsis, unspecified organism Is this a current diagnosis for this admission?: Yes (4) Anemia of chronic disease Is this a current diagnosis for this admission?: Yes (6) Diabetes mellitus Qualifiers: Diabetes mellitus type: type 2 Diabetes mellitus complication status: with unspecified complications Diabetes mellitus fpc insulin use: with fpc use Qualified Code(s): E11.8 - Type 2 diabetes mellitus with unspecified complications; Z79.4 - MCFP (current) use of insulin Is this a current diagnosis for this admission?: Yes (7) G tube feedings Is this a current diagnosis for this admission?: Yes (8) HTN (hypertension) Qualifiers: Hypertension type: essential hypertension Qualified Code(s): I10 - Essential (primary) hypertension Is this a current diagnosis for this admission?: Yes (9) History of stroke Is this a current diagnosis for this admission?: Yes (10) Sacral decubitus ulcer, stage IV Is this a current diagnosis for this admission?: Yes (11) Seizure disorder Is this a current diagnosis for this admission?: Yes (12) Full code status Is this a current diagnosis for this admission?: Yes - Time Time Spent with patient: 15-24 minutes Medications reviewed and adjusted accordingly: Yes - Plan Summary Plan Summary: Patient currently on Zosyn with gram-negative rods in his blood and urine. This is a repeated pattern for this patient. We will consult palliative care for their input. Continue supportive care and all other regards and continue patient's home medications as tolerated within given parameters. Resume patient 's tube feedings.
[2017-02-12] MEDS: LACTULOSE SYRUP 20 GM/30 ML UDCUP PO SCH (19:46)
[2017-02-12] MEDS: GUAIFENESIN SYRP 200 MG/10 ML UDC PEG SCH ×2 (19:46→23:41)
[2017-02-12] MEDS: METOPROLOL TARTRATE 25 MG TABLET PEG SCH (22:14)
[2017-02-12] MEDS: ISOSORB DINIT/HYDRALAZINE HCL 20-37.5 MG TABLET PEG SCH (22:14)
[2017-02-12] MEDS: FAMOTIDINE 20 MG TABLET PEG SCH (22:14)
[2017-02-12] MEDS: INSULIN GLARGINE,HUM.REC.ANLOG 300 UNIT/3 ML INSULN.PEN SUBCUT SCH (22:53)
[2017-02-13] MEDS: PIPERACILLIN SODIUM/TAZOBACTAM 4.5 GM in NORMAL SALINE 100 ML IV SCH ×4 (02:12→20:58)
[2017-02-13] MEDS: IPRATROPIUM/ALBUTEROL 0.5-2.5 MG/3 ML AMPUL NEB SCH ×4 (02:42→20:03)
[2017-02-13] MEDS: HEPARIN SOD (PORCINE) 5,000 UNIT/ML 1 ML SYRINGE SUBCUT SCH ×3 (05:08→21:35)
[2017-02-13] MEDS: GUAIFENESIN SYRP 200 MG/10 ML UDC PEG SCH ×4 (05:13→23:27)
[2017-02-13] MEDS: ISOSORB DINIT/HYDRALAZINE HCL 20-37.5 MG TABLET PEG SCH ×3 (05:13→21:34)
[2017-02-13] MEDS: VANCOMYCIN HCL 750 MG in DEXTROSE 5%-WATER 250 ML IV SCH (05:14)
[2017-02-13 07:13] LABS: ABSOLUTE EOSINOPHILS # (AUTO) 0.1 10^3/uL (0.0-0.6); ABSOLUTE LYMPHOCYTES (AUTO) 0.6 10^3/uL (0.5-4.7); ABSOLUTE MONOCYTES (AUTO) 0.7 10^3/uL (0.1-1.4); ABSOLUTE NEUT (AUTO) 3.5 10^3/uL (1.7-8.2); BASOPHILS % (AUTO) 0.6 % (0-2); EOSINOPHILS % (AUTO) 2.1 % (0-6); HEMATOCRIT 29.9 % (37.9-51.0); HEMOGLOBIN 9.2 g/dL (13.5-17.0); HGB HCT DIFFERENCE -2.3; LYMPHOCYTES % (AUTO) 12.8 % (13-45); MEAN CORPUSCULAR HEMOGLOBIN 27.9 pg (27.0-33.4); MEAN CORPUSCULAR HGB CONC 30.7 g/dL (32.0-36.0); MEAN CORPUSCULAR VOLUME 91 fl (80-97); MONOCYTES % (AUTO) 14.7 % (3-13); RED BLOOD COUNT 3.28 10^6/uL (4.35-5.55); RED CELL DISTRIBUTION WIDTH 17.5 % (11.5-14.0); SEGMENTED NEUTROPHILS % (AUTO) 69.8 % (42-78); WHITE BLOOD COUNT 5.1 10^3/uL (4.0-10.5)
[2017-02-13 07:24] LABS: ANION GAP 9 (5-19); BLOOD UREA NITROGEN 27 mg/dL (7-20); CALCIUM 9.1 mg/dL (8.4-10.2); CARBON DIOXIDE 30 mmol/L (22-30); CHLORIDE 105 mmol/L (98-107); CREATININE RESULT 0.56 mg/dL (0.52-1.25); GLUCOSE 190 mg/dL (75-110); POTASSIUM 3.7 mmol/L (3.6-5.0); SODIUM 144.3 mmol/L (137-145)
[2017-02-13] MEDS: ZINC SULFATE 220 MG CAPSULE PEG SCH (10:28)
[2017-02-13] MEDS: METOPROLOL TARTRATE 25 MG TABLET PEG SCH ×2 (10:28→21:34)
[2017-02-13] MEDS: LACTULOSE SYRUP 20 GM/30 ML UDCUP PO SCH ×2 (10:28→17:17)
[2017-02-13] MEDS: FAMOTIDINE 20 MG TABLET PEG SCH ×2 (10:28→21:34)
[2017-02-13] MEDS: ASCORBIC ACID 500 MG TABLET PEG SCH (10:28)
[2017-02-13] MEDS: LEVETIRACETAM ORAL SOLN 500 MG/5 ML UDCUP PEG SCH ×2 (10:28→21:33)
[2017-02-13] MEDS: POLYETHYLENE GLYCOL 3350 POWDER 17 GM/1 PACKET PEG SCH (10:29)
[2017-02-13] MEDS ORDERED: FUROSEMIDE INJ/PF 20 MG/2 ML SDV IV ONE (11:45)
[2017-02-13 14:39] LABS: CREATININE RESULT 0.58 mg/dL (0.52-1.25)
[2017-02-13] MEDS: ACETAMINOPHEN 325 MG TABLET PEG PRN (15:57)
--- NOTE | 2017-02-13 16:37 | PDOC PROGRESS REPORT ---
Subjective Progress Note for:: 02/13/17 Subjective:: Unable to obtain review of systems from patient based on his baseline mental status. Physical Exam Vital Signs: Temp Pulse Resp BP Pulse Ox 97.7 F 76 18 105/57 L 100 02/13/17 07:38 02/13/17 07:38 02/13/17 07:38 02/13/17 07:38 02/13/17 07:38 Intake & Output 02/12/17 02/13/17 02/14/17 06:59 06:59 06:59 Intake Total 700 Output Total 1000 Balance -300 Weight 85.2 kg 85.2 kg Exam: GENERAL: No acute distress HEENT: Conjunctiva clear, nonicteric, moist mucous membranes, no JVD, midline trachea RESPIRATORY: Basilar rhonchi CARDIAC: Regular rate and rhythm, no murmurs/gallops/rubs ABDOMEN: Soft, nondistended, active bowel sounds, no rebound, no guarding EXTREMETIES: contracted with muscle wasting, 1+edema NEUROLOGIC: contracted with muscle wasting of bue, expressive aphasia SKIN: Stage 3 decubitus tunneling with surrounding stage 2 ulceration Results Laboratory Results: 02/13/17 06:55 02/13/17 06:55 02/13/17 02/13/17 06:55 06:55 WBC 5.1 RBC 3.28 L Hgb 9.2 L Hct 29.9 L MCV 91 MCH 27.9 MCHC 30.7 L RDW 17.5 H Plt Count 110 L Seg Neutrophils % 69.8 Lymphocytes % 12.8 L Monocytes % 14.7 H Eosinophils % 2.1 Basophils % 0.6 Absolute Neutrophils 3.5 Absolute Lymphocytes 0.6 Absolute Monocytes 0.7 Absolute Eosinophils 0.1 Absolute Basophils 0.0 Sodium 144.3 Potassium 3.7 Chloride 105 Carbon Dioxide 30 Anion Gap 9 BUN 27 H Creatinine 0.56 Est GFR ( Amer) > 60 Est GFR (Non-Af Amer) > 60 Glucose 190 H Calcium 9.1 Impressions: Chest X-Ray 02/11/17 20:55 IMPRESSION: Resolving right upper lobe and right perihilar infiltrate. Assessment & Plan - Diagnosis (1) Aspiration pneumonia Qualifiers: Aspiration pneumonia type: unspecified Laterality: right Lung location: lower lobe of lung Qualified Code(s): J69.0 - Pneumonitis due to inhalation of food and vomit Is this a current diagnosis for this admission?: YesPlan: Continue treatment with Zosyn (2) Sepsis Qualifiers: Sepsis type: sepsis due to unspecified organism Qualified Code(s): A41.9 - Sepsis, unspecified organism Is this a current diagnosis for this admission?: YesPlan: Her to UTI and pneumonia. Patient has ESBL E. coli UTI and bacteremia. (3) Anemia of chronic disease Is this a current diagnosis for this admission?: Yes (4) Diabetes mellitus Qualifiers: Diabetes mellitus type: type 2 Diabetes mellitus complication status: with unspecified complications Diabetes mellitus fdc insulin use: with fdc use Qualified Code(s): E11.8 - Type 2 diabetes mellitus with unspecified complications; Z79.4 - consulting practice director (current) use of insulin Is this a current diagnosis for this admission?: YesPlan: Controlled on Lantus and sliding scale insulin (5) G tube feedings Is this a current diagnosis for this admission?: Yes (6) HTN (hypertension) Qualifiers: Hypertension type: essential hypertension Qualified Code(s): I10 - Essential (primary) hypertension Is this a current diagnosis for this admission?: Yes (7) History of stroke Is this a current diagnosis for this admission?: Yes (8) Sacral decubitus ulcer, stage IV Is this a current diagnosis for this admission?: YesPlan: Continue wound management with wet-to-dry dressing. This is actually likely a stage III healing with stage II surrounding. (9) Seizure disorder Is this a current diagnosis for this admission?: YesPlan: Continue Keppra (10) Full code status Is this a current diagnosis for this admission?: Yes (11) Dementia Qualifiers: Dementia type: unspecified type Dementia behavioral disturbance: without behavioral disturbance Qualified Code(s): F03.90 - Unspecified dementia without behavioral disturbance Is this a current diagnosis for this admission?: Yes - Time Time Spent with patient: 25-34 minutes Medications reviewed and adjusted accordingly: Yes - Inpatient Certification Based on my medical assessment, after consideration of the patient's comorbidities, presenting symptoms, or acuity I expect that the services needed warrant INPATIENT care.: Yes I certify that my determination is in accordance with my understanding of Medicare's requirements for reasonable and necessary INPATIENT services [42 CFR 412.3e].: Yes Medical Necessity: Need for IV Antibiotics Post Hospital Care: D/C Rag Inspector Documentation
--- NOTE | 2017-02-13 18:38 | PDOC CONSULTATION ---
History of Present Illness Admission Date/PCP: 02/11/17 22:36 MARGARITA ZARATE MD History of Present Illness: THAD JOY is a 76 year old male with an extensive past medical history status post CVA with residual right-sided contracture, expressive and receptive aphasia, n.p.o. with PEG and recurrent aspiration pneumonia, stage IV sacral decubiti, urinary tract infection with indwelling Vazquez with torn urethra on prior admission and dementia. He is a long-term [facility] resident at [place] noted to have vomiting and tachypnea brought to the emergency room for evaluation he was found to have a right-sided infiltrate suggestive of aspiration. He started on Zosyn and vancomycin referred to the hospitalist for admission. Though the patient is completely nonresponsive, nonverbal, PEG dependent and contracted patient's medical power of criminal attorney request full CODE STATUS. Patient with chronic sacral decubitus ulcer that had been managed at the wound care clinic in the past. No acute changes. No purulent drainage. Family just wanted a check. Past Medical History Cardiac Medical History: Reports: Hyperlipidema, Hypertension Pulmonary Medical History: Reports: Chronic Obstructive Pulmonary Disease (COPD) , Pneumonia Neurological Medical History: Reports: Seizures Endocrine Medical History: Reports: Diabetes Mellitus Type 2 GI Medical History: Reports: Gastroesophageal Reflux Disease - PEG tube post CVA Psychiatric Medical History: Reports: Dementia, Depression Hematology: Reports: Anemia Past Surgical History Past Surgical History: Reports: Other - PEG tube placed Social History Lives with: Alf Smoking Status: Unknown if Ever Smoked Frequency of Alcohol Use: None Hx Recreational Drug Use: No Drugs: None Hx Prescription Drug Abuse: No - Advance Directive Resuscitation Status: Full Code Family History Family History: Other - Unable to obtain given mental status Parental Family History Reviewed: No Children Family History Reviewed: No Sibling(s) Family History Reviewed.: No Medication/Allergy Home Medications: Acetaminophen [Tylenol 325 mg Tablet] 650 mg PEG ASDIR PRN 01/13/17 Ascorbic Acid [Vitamin C 500 mg Tablet] 500 mg PEG DAILY 01/13/17 Cranberry Extract [Cranberry 200 mg Capsule] 400 mg PEG DAILY 01/13/17 Famotidine [Pepcid 20 mg Tablet] 20 mg PEG Q12 01/13/17 Insulin Glargine,Hum.rec.anlog [Lantus Insulin 100 Unit/1 ml 10 ml] 24 unit SUBCUT QHS 01/13/17 Ipratropium/Albuterol Sulfate [Duoneb 3 ml Ampul] 3 ml NEB [id number] PRN 01/13/17 Isosorb Dinit/Hydralazine HCl [Bidil 20-37.5 mg Tablet] 1 tab PEG Q8 01/13/17 Lactulose [Enulose 10 gm/15 mL Oral Solution] 20 gm PEG BID 01/13/17 Levetiracetam [Keppra] 750 mg PEG Q12 01/13/17 Lisinopril [Prinivil 10 mg Tablet] 20 mg PEG DAILY 01/13/17 Metoprolol Tartrate [Lopressor 25 mg Tablet] 12.5 mg PEG Q12 01/13/17 Nitroglycerin [Nitrostat] 0.4 mg SL Q5MP PRN 01/13/17 Polyethylene Glycol 3350 [Miralax Powder 17 gm/Packet] 1 packet PEG DAILY Zinc Sulfate [Zinc-220 Capsule] 220 mg PEG DAILY 01/13/17 Guaifenesin [Siltussin Sa] 15 ml PEG Q6 02/12/17 Allergies/Adverse Reactions: divalproex sodium [From Depakote] Allergy (Verified 01/17/17 17:13) oxycodone [Oxycodone] Adverse Reaction (Intermediate, Verified 01/12/17 19:24) agitation simvastatin [From Zocor] Adverse Reaction (Unknown, Verified 01/12/17 19:24) dysarthria Physical Exam Vital Signs: Temp Pulse Resp BP Pulse Ox 97.9 F 73 18 110/58 L 98 02/13/17 16:33 02/13/17 16:33 02/13/17 16:33 02/13/17 16:33 02/13/17 16:33 Intake & Output 02/12/17 02/13/17 02/14/17 06:59 06:59 06:59 Intake Total 700 460 Output Total 1000 400 Balance -300 60 Weight 85.2 kg 85.2 kg Skin exam: PRESENT: other - Stage IV sacral decubitus ulcer about 2 cm. Appears very clean with no surrounding erythema no purulent drainage. Palpable sacral fascia at the base. Results Laboratory Results: 02/13/17 06:55 02/13/17 14:00 02/13/17 02/13/1717 06:55 06:55 14:00 WBC 5.1 RBC 3.28 L Hgb 9.2 L Hct 29.9 L MCV 91 MCH 27.9 MCHC 30.7 L RDW 17.5 H Plt Count 110 L Seg Neutrophils % 69.8 Lymphocytes % 12.8 L Monocytes % 14.7 H Eosinophils % 2.1 Basophils % 0.6 Absolute Neutrophils 3.5 Absolute Lymphocytes 0.6 Absolute Monocytes 0.7 Absolute Eosinophils 0.1 Absolute Basophils 0.0 Sodium 144.3 Potassium 3.7 Chloride 105 Carbon Dioxide 30 Anion Gap 9 BUN 27 H Creatinine 0.56 0.58 Est GFR ( Amer) > 60 > 60 Est GFR (Non-Af Amer) > 60 > 60 Glucose 190 H Calcium 9.1 Impressions: Chest X-Ray 02/11/17 20:55 IMPRESSION: Resolving right upper lobe and right perihilar infiltrate. Assessment & Plan - Diagnosis (1) Sacral decubitus ulcer, stage IV Is this a current diagnosis for this admission?: YesPlan: Continue local wound care. Recommend follow-up at the wound care clinic if he has had before. I do not see any role for surgical debridement at this time.
[2017-02-13] MEDS: INSULIN GLARGINE,HUM.REC.ANLOG 300 UNIT/3 ML INSULN.PEN SUBCUT SCH (21:35)
[2017-02-14] MEDS: IPRATROPIUM/ALBUTEROL 0.5-2.5 MG/3 ML AMPUL NEB SCH ×4 (02:12→20:10)
[2017-02-14] MEDS: PIPERACILLIN SODIUM/TAZOBACTAM 4.5 GM in NORMAL SALINE 100 ML IV SCH ×4 (02:52→21:56)
[2017-02-14 05:04] LABS: ABSOLUTE EOSINOPHILS # (AUTO) 0.3 10^3/uL (0.0-0.6); ABSOLUTE MONOCYTES (AUTO) 0.8 10^3/uL (0.1-1.4); ABSOLUTE NEUT (AUTO) 2.1 10^3/uL (1.7-8.2); BASOPHILS % (AUTO) 0.8 % (0-2); HEMATOCRIT 30.1 % (37.9-51.0); HEMOGLOBIN 9.6 g/dL (13.5-17.0); HGB HCT DIFFERENCE -1.3; LYMPHOCYTES % (AUTO) 22.7 % (13-45); MEAN CORPUSCULAR HEMOGLOBIN 28.3 pg (27.0-33.4); MEAN CORPUSCULAR VOLUME 89 fl (80-97); MONOCYTES % (AUTO) 19.3 % (3-13); RED BLOOD COUNT 3.41 10^6/uL (4.35-5.55); RED CELL DISTRIBUTION WIDTH 17.1 % (11.5-14.0); SEGMENTED NEUTROPHILS % (AUTO) 49.2 % (42-78); WHITE BLOOD COUNT 4.3 10^3/uL (4.0-10.5)
[2017-02-14 05:26] LABS: ANION GAP 9 (5-19); BLOOD UREA NITROGEN 18 mg/dL (7-20); CALCIUM 9.1 mg/dL (8.4-10.2); CARBON DIOXIDE 29 mmol/L (22-30); CHLORIDE 107 mmol/L (98-107); GLUCOSE 109 mg/dL (75-110); POTASSIUM 3.3 mmol/L (3.6-5.0); SODIUM 144.8 mmol/L (137-145)
[2017-02-14] MEDS: ISOSORB DINIT/HYDRALAZINE HCL 20-37.5 MG TABLET PEG SCH ×3 (05:43→21:56)
[2017-02-14] MEDS: GUAIFENESIN SYRP 200 MG/10 ML UDC PEG SCH ×4 (05:43→23:48)
[2017-02-14] MEDS: HEPARIN SOD (PORCINE) 5,000 UNIT/ML 1 ML SYRINGE SUBCUT SCH ×3 (05:44→21:55)
[2017-02-14] MEDS: FAMOTIDINE 20 MG TABLET PEG SCH ×2 (11:57→21:56)
[2017-02-14] MEDS: METOPROLOL TARTRATE 25 MG TABLET PEG SCH ×2 (11:57→21:55)
[2017-02-14] MEDS: ZINC SULFATE 220 MG CAPSULE PEG SCH (11:57)
[2017-02-14] MEDS: ASCORBIC ACID 500 MG TABLET PEG SCH (11:58)
[2017-02-14] MEDS: LEVETIRACETAM ORAL SOLN 500 MG/5 ML UDCUP PEG SCH ×2 (11:58→21:56)
[2017-02-14] MEDS: LACTULOSE SYRUP 20 GM/30 ML UDCUP PO SCH ×2 (11:59→17:28)
[2017-02-14] MEDS: POLYETHYLENE GLYCOL 3350 POWDER 17 GM/1 PACKET PEG SCH (12:00)
--- NOTE | 2017-02-14 12:02 | RADIOLOGY REPORT (SQ) ---
EXAM DESCRIPTION: PICC INSERTION; U/S GUIDE FOR VASCULAR ACCESS; FLUORO/CV PLACEMENT COMPLETED DATE/TIME: 02/14/2017 11:30 am; 02/14/2017 11:31 am REASON FOR STUDY: need for ivabx; IV ABX COMPARISON: AP chest 02/11/2017 FLUOROSCOPY TIME: 32 seconds 1 C-arm image and 1 ultrasound image saved to PACS. TECHNIQUE: Fluoroscopic and ultrasound guided PICC placement. LIMITATIONS: None. PROCEDURE: After written consent and assessment were obtained, the patient was brought into the fluo roscopy room and place supine on the table. Ultrasound was used on the patient's left arm for PICC a ccess. The left arm was prepped and draped in a sterile fashion along with the ultrasound probe. The entry site was anesthetized with 3 mL of 1% lidocaine. A 21 gauge 7 cm needle was advanced through th e skin and into the left basilic vein under live ultrasound guidance. An ultrasound image was saved to PACS confirming access site. A .018 guide wire was then inserted through the needle and into the venous system. The needle was the removed and an 11 blade scalpel was used to make a 1cm skin incisio n. A 5 fr peel-away sheath was advanced over the wire and into the venous system. A measurement was then made using the existing wire and live fluoroscopic guidance. The wire was then removed and the t rimmed. The PICC was advanced through the peel-away sheath and into the venous system. The peel-away sheath was removed and the catheter was adhered to the patients arm with a stat lock. The catheter wa s then aspirated and flushed and a sterile bandage was placed over the access site. A fluoroscopic s pot image was saved to PACS confirming the catheter tip within the superior vena cava. IMPRESSION: SUCCESSFUL PLACEMENT OF A 5 FR DUAL LUMEN 41 CM PICC IN THE left basilic VEIN. COMMENT: Patient medication list reviewed: Yes- Quality ID# [id number]:Eligible professional attests to doc umenting in the medical record they obtained, updated, or reviewed the patient's current medications. . Quality ID 145: Final reports for procedures using fluoroscopy that document radiation exposure izabel freddy, or exposure time and number of fluorographic images (if radiation exposure indices are not avail able) Quality ID #76: The patient was prepped and draped using maximum sterile barrier technique including cap, mask, sterile gown, sterile gloves, a large sterile sheet, hand hygiene, and 2% Chlorhexidine fo r cutaneous antisepsis. When ultrasound is used, sterile ultrasound techniques are followed requiring sterile gel and sterile probes. TECHNICAL DOCUMENTATION: JOB ID: [id number] [employer]- All Rights Reserved
[2017-02-14] MEDS ORDERED: POTASSIUM CHLORIDE 20 MEQ/15 ML UDCUP PEG ONE (13:00)
[2017-02-14] MEDS ORDERED: NORMAL SALINE 10 ML SDV (AFTER EACH USE) IV PRN (13:16)
[2017-02-14] MEDS: ACETAMINOPHEN 325 MG TABLET PEG PRN (17:27)
--- NOTE | 2017-02-14 19:17 | PDOC PROGRESS REPORT ---
Subjective Progress Note for:: 02/14/17 Subjective:: Unable to obtain review of systems from patient based on his baseline mental status. Physical Exam Vital Signs: Temp Pulse Resp BP Pulse Ox 98.0 F 76 20 126/61 H 98 02/14/17 16:06 02/14/17 16:06 02/14/17 14:01 02/14/17 16:06 02/14/17 16:06 Intake & Output 02/13/17 02/14/17 02/15/17 06:59 06:59 06:59 Intake Total 700 810 267 Output Total 1000 1450 450 Balance -300 -640 -183 Weight 85.2 kg 85.7 kg Exam: GENERAL: No acute distress HEENT: Conjunctiva clear, nonicteric, moist mucous membranes, no JVD, midline trachea RESPIRATORY: CTAB CARDIAC: Regular rate and rhythm, no murmurs/gallops/rubs ABDOMEN: Soft, nondistended, active bowel sounds, no rebound, no guarding EXTREMETIES: contracted with muscle wasting, 1+edema NEUROLOGIC: contracted with muscle wasting of bue, expressive aphasia SKIN: Stage 3 decubitus tunneling with surrounding stage 2 ulceration Results Laboratory Results: 02/14/17 04:43 02/14/17 04:43 02/14/17 02/14/17 04:43 04:43 WBC 4.3 RBC 3.41 L Hgb 9.6 L Hct 30.1 L MCV 89 MCH 28.3 MCHC 32.0 RDW 17.1 H Plt Count 100 L Seg Neutrophils % 49.2 Lymphocytes % 22.7 Monocytes % 19.3 H Eosinophils % 8.0 H Basophils % 0.8 Absolute Neutrophils 2.1 Absolute Lymphocytes 1.0 Absolute Monocytes 0.8 Absolute Eosinophils 0.3 Absolute Basophils 0.0 Sodium 144.8 Potassium 3.3 L Chloride 107 Carbon Dioxide 29 Anion Gap 9 BUN 18 Creatinine 0.60 Est GFR ( Amer) > 60 Est GFR (Non-Af Amer) > 60 Glucose 109 Calcium 9.1 Impressions: Chest X-Ray 02/11/17 20:55 IMPRESSION: Resolving right upper lobe and right perihilar infiltrate. Guidance Fluoroscopy 02/14/17 00:00 IMPRESSION: SUCCESSFUL PLACEMENT OF A 5 FR DUAL LUMEN 41 CM PICC IN THE left basilic VEIN. Interventional Vascular Procedure 02/14/17 00:00 IMPRESSION: SUCCESSFUL PLACEMENT OF A 5 FR DUAL LUMEN 41 CM PICC IN THE left basilic VEIN. PICC Line Insertion 02/14/17 00:00 IMPRESSION: SUCCESSFUL PLACEMENT OF A 5 FR DUAL LUMEN 41 CM PICC IN THE left basilic VEIN. Assessment & Plan - Diagnosis (1) Sepsis Qualifiers: Sepsis type: sepsis due to unspecified organism Qualified Code(s): A41.9 - Sepsis, unspecified organism Is this a current diagnosis for this admission?: YesPlan: Her to UTI and pneumonia. Patient has ESBL E. coli UTI and bacteremia. (2) UTI (urinary tract infection) Qualifiers: Urinary tract infection type: catheter-associated UTI Indwelling urinary catheter type: indwelling urethral catheter Encounter type: initial encounter Qualified Code(s): T83.511A - Infection and inflammatory reaction due to indwelling urethral catheter, initial encounter; N39.0 - Urinary tract infection, site not specified Is this a current diagnosis for this admission?: YesPlan: With chronic indwelling Vazquez catheter and ESBL E. coli UTI. Continue Zosyn for this. 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 operator insulin use: with senior living use Qualified Code(s): E11.8 - Type 2 diabetes mellitus with unspecified complications; Z79.4 - terminal operator (current) use of insulin Is this a current diagnosis for this admission?: Yes (6) G tube feedings Is this a current diagnosis for this admission?: Yes (7) HTN (hypertension) Qualifiers: Hypertension type: essential hypertension Qualified Code(s): I10 - Essential (primary) hypertension Is this a current diagnosis for this admission?: Yes (8) History of stroke Is this a current diagnosis for this admission?: Yes (9) Sacral decubitus ulcer, stage IV Is this a current diagnosis for this admission?: Yes (10) Seizure disorder Is this a current diagnosis for this admission?: Yes (11) Full code status Is this a current diagnosis for this admission?: Yes (12) Dementia Qualifiers: Dementia type: unspecified type Dementia behavioral disturbance: without behavioral disturbance Qualified Code(s): F03.90 - Unspecified dementia without behavioral disturbance Is this a current diagnosis for this admission?: Yes
[2017-02-14] MEDS: NORMAL SALINE 10 ML SDV (SCHEDULED) IV SCH (21:55)
[2017-02-14] MEDS: INSULIN GLARGINE,HUM.REC.ANLOG 300 UNIT/3 ML INSULN.PEN SUBCUT SCH (21:56)
[2017-02-15] MEDS: IPRATROPIUM/ALBUTEROL 0.5-2.5 MG/3 ML AMPUL NEB SCH ×4 (02:38→20:27)
[2017-02-15] MEDS: PIPERACILLIN SODIUM/TAZOBACTAM 4.5 GM in NORMAL SALINE 100 ML IV SCH ×4 (02:51→20:15)
[2017-02-15] MEDS: ACETAMINOPHEN 325 MG TABLET PEG PRN (06:05)
[2017-02-15] MEDS: ISOSORB DINIT/HYDRALAZINE HCL 20-37.5 MG TABLET PEG SCH ×3 (06:06→21:17)
[2017-02-15] MEDS: HEPARIN SOD (PORCINE) 5,000 UNIT/ML 1 ML SYRINGE SUBCUT SCH ×3 (06:06→21:18)
[2017-02-15] MEDS: GUAIFENESIN SYRP 200 MG/10 ML UDC PEG SCH ×3 (06:06→17:33)
[2017-02-15 08:47] LABS: ANION GAP 9 (5-19); BLOOD UREA NITROGEN 12 mg/dL (7-20); CALCIUM 9.2 mg/dL (8.4-10.2); CARBON DIOXIDE 28 mmol/L (22-30); CHLORIDE 110 mmol/L (98-107); CREATININE RESULT 0.57 mg/dL (0.52-1.25); GLUCOSE 118 mg/dL (75-110); POTASSIUM 3.7 mmol/L (3.6-5.0); SODIUM 147.1 mmol/L (137-145)
[2017-02-15] MEDS: POLYETHYLENE GLYCOL 3350 POWDER 17 GM/1 PACKET PEG SCH (11:46)
[2017-02-15] MEDS: LACTULOSE SYRUP 20 GM/30 ML UDCUP PO SCH ×2 (11:46→17:29)
[2017-02-15] MEDS: ASCORBIC ACID 500 MG TABLET PEG SCH (12:15)
[2017-02-15] MEDS: NORMAL SALINE 10 ML SDV (SCHEDULED) IV SCH ×2 (12:15→21:17)
[2017-02-15] MEDS: METOPROLOL TARTRATE 25 MG TABLET PEG SCH ×2 (12:15→21:15)
[2017-02-15] MEDS: ZINC SULFATE 220 MG CAPSULE PEG SCH (12:15)
[2017-02-15] MEDS: FAMOTIDINE 20 MG TABLET PEG SCH ×2 (12:15→21:15)
[2017-02-15] MEDS: LEVETIRACETAM ORAL SOLN 500 MG/5 ML UDCUP PEG SCH ×2 (12:16→21:14)
--- NOTE | 2017-02-15 16:16 | PDOC PROGRESS REPORT ---
Subjective Progress Note for:: 02/15/17 Subjective:: Unable to obtain review of systems from patient based on his baseline mental status. Physical Exam Vital Signs: Temp Pulse Resp BP Pulse Ox 98.8 F 87 18 128/55 H 99 02/15/17 15:44 02/15/17 15:44 02/15/17 15:44 02/15/17 15:44 02/15/17 15:44 Intake & Output 02/14/17 02/15/17 02/16/17 06:59 06:59 06:59 Intake Total 810 467 60 Output Total 1450 850 100 Balance -640 -383 -40 Weight 85.7 kg 85.6 kg Exam: GENERAL: No acute distress HEENT: Conjunctiva clear, nonicteric, moist mucous membranes, no JVD, midline trachea RESPIRATORY: CTAB CARDIAC: Regular rate and rhythm, no murmurs/gallops/rubs ABDOMEN: Soft, nondistended, active bowel sounds, no rebound, no guarding EXTREMETIES: contracted with muscle wasting, 1+edema NEUROLOGIC: contracted with muscle wasting of bue, expressive aphasia SKIN: Stage 3 decubitus tunneling with surrounding stage 2 ulceration Results Laboratory Results: 02/14/17 04:43 02/15/17 08:05 02/15/17 08:05 Sodium 147.1 H Potassium 3.7 Chloride 110 H Carbon Dioxide 28 Anion Gap 9 BUN 12 Creatinine 0.57 Est GFR ( Amer) > 60 Est GFR (Non-Af Amer) > 60 Glucose 118 H Calcium 9.2 Impressions: Chest X-Ray 02/11/17 20:55 IMPRESSION: Resolving right upper lobe and right perihilar infiltrate. Guidance Fluoroscopy 02/14/17 00:00 IMPRESSION: SUCCESSFUL PLACEMENT OF A 5 FR DUAL LUMEN 41 CM PICC IN THE left basilic VEIN. Interventional Vascular Procedure 02/14/17 00:00 IMPRESSION: SUCCESSFUL PLACEMENT OF A 5 FR DUAL LUMEN 41 CM PICC IN THE left basilic VEIN. PICC Line Insertion 02/14/17 00:00 IMPRESSION: SUCCESSFUL PLACEMENT OF A 5 FR DUAL LUMEN 41 CM PICC IN THE left basilic VEIN. Assessment & Plan - Diagnosis (1) Sepsis Qualifiers: Sepsis type: Escherichia coli Qualified Code(s): A41.51 - Sepsis due to Escherichia coli [E. coli] Is this a current diagnosis for this admission?: YesPlan: Her to UTI and pneumonia. Patient has ESBL E. coli UTI and bacteremia. (2) UTI (urinary tract infection) Qualifiers: Urinary tract infection type: catheter-associated UTI Indwelling urinary catheter type: indwelling urethral catheter Encounter type: initial encounter Qualified Code(s): T83.511A - Infection and inflammatory reaction due to indwelling urethral catheter, initial encounter; N39.0 - Urinary tract infection, site not specified Is this a current diagnosis for this admission?: YesPlan: With chronic indwelling Vazquez catheter and ESBL E. coli UTI. PICC line has been placed. On Zosyn day#12/02 Patient stable to be discharged back to nursing facility, but daughter asks we hold him through the weekend. 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 mellitus terminal worker insulin use: with prison use Qualified Code(s): E11.8 - Type 2 diabetes mellitus with unspecified complications; Z79.4 - [facility] (current) use of insulin Is this a current diagnosis for this admission?: Yes (6) G tube feedings Is this a current diagnosis for this admission?: Yes (7) HTN (hypertension) Qualifiers: Hypertension type: essential hypertension Qualified Code(s): I10 - Essential (primary) hypertension Is this a current diagnosis for this admission?: Yes (8) History of stroke Is this a current diagnosis for this admission?: Yes (9) Sacral decubitus ulcer, stage IV Is this a current diagnosis for this admission?: Yes (10) Seizure disorder Is this a current diagnosis for this admission?: Yes (11) Full code status Is this a current diagnosis for this admission?: Yes (12) Dementia Qualifiers: Dementia type: unspecified type Dementia behavioral disturbance: without behavioral disturbance Qualified Code(s): F03.90 - Unspecified dementia without behavioral disturbance Is this a current diagnosis for this admission?: Yes - Time Time Spent with patient: 25-34 minutes Medications reviewed and adjusted accordingly: Yes Anticipated discharge: SNF Within: within 48 hours
[2017-02-15] MEDS: HYDROCODONE/ACETAMINOPHEN 5-325 MG TABLET PEG PRN (21:22)
[2017-02-15] MEDS: INSULIN GLARGINE,HUM.REC.ANLOG 300 UNIT/3 ML INSULN.PEN SUBCUT SCH (22:40)
[2017-02-16] MEDS: GUAIFENESIN SYRP 200 MG/10 ML UDC PEG SCH ×4 (00:57→17:17)
[2017-02-16] MEDS: IPRATROPIUM/ALBUTEROL 0.5-2.5 MG/3 ML AMPUL NEB SCH ×4 (02:17→20:23)
[2017-02-16] MEDS: PIPERACILLIN SODIUM/TAZOBACTAM 4.5 GM in NORMAL SALINE 100 ML IV SCH ×3 (02:18→14:02)
[2017-02-16] MEDS: ISOSORB DINIT/HYDRALAZINE HCL 20-37.5 MG TABLET PEG SCH ×3 (05:24→22:15)
[2017-02-16] MEDS: HEPARIN SOD (PORCINE) 5,000 UNIT/ML 1 ML SYRINGE SUBCUT SCH ×3 (05:24→22:17)
[2017-02-16] MEDS: LEVETIRACETAM ORAL SOLN 500 MG/5 ML UDCUP PEG SCH ×2 (10:12→22:15)
[2017-02-16] MEDS: ASCORBIC ACID 500 MG TABLET PEG SCH (10:12)
[2017-02-16] MEDS: ZINC SULFATE 220 MG CAPSULE PEG SCH (10:13)
[2017-02-16] MEDS: FAMOTIDINE 20 MG TABLET PEG SCH ×2 (10:13→22:15)
[2017-02-16] MEDS: METOPROLOL TARTRATE 25 MG TABLET PEG SCH ×2 (10:13→22:15)
[2017-02-16] MEDS: POLYETHYLENE GLYCOL 3350 POWDER 17 GM/1 PACKET PEG SCH (10:14)
[2017-02-16] MEDS: LACTULOSE SYRUP 20 GM/30 ML UDCUP PO SCH ×2 (10:14→17:17)
[2017-02-16] MEDS: NORMAL SALINE 10 ML SDV (SCHEDULED) IV SCH ×2 (10:14→22:16)
[2017-02-16] MEDS: HYDROCODONE/ACETAMINOPHEN 5-325 MG TABLET PEG PRN (11:02)
--- NOTE | 2017-02-16 15:12 | PDOC PROGRESS REPORT ---
Subjective Progress Note for:: 02/16/17 Subjective:: Unable to obtain review of systems from patient based on his baseline mental status. Physical Exam Vital Signs: Temp Pulse Resp BP Pulse Ox 97.9 F 69 19 167/72 H 100 02/16/17 05:04 02/16/17 07:00 02/16/17 05:04 02/16/17 05:04 02/16/17 05:04 Intake & Output 02/15/17 02/16/17 02/17/17 06:59 06:59 06:59 Intake Total 467 1549 Output Total 850 500 Balance -383 1049 Weight 85.6 kg 85.4 kg Exam: GENERAL: No acute distress HEENT: Conjunctiva clear, nonicteric, moist mucous membranes, no JVD, midline trachea RESPIRATORY: Diminished overall rhonchi left lower lobe CARDIAC: Regular rate and rhythm, no murmurs/gallops/rubs ABDOMEN: Soft, nondistended, active bowel sounds, no rebound, no guarding EXTREMETIES: contracted with muscle wasting, 1+edema NEUROLOGIC: contracted with muscle wasting of bue, expressive aphasia SKIN: Stage 3 decubitus tunneling with surrounding stage 2 ulceration Results Laboratory Results: 02/14/17 04:43 02/15/17 08:05 02/15/17 08:05 Sodium 147.1 H Potassium 3.7 Chloride 110 H Carbon Dioxide 28 Anion Gap 9 BUN 12 Creatinine 0.57 Est GFR ( Amer) > 60 Est GFR (Non-Af Amer) > 60 Glucose 118 H Calcium 9.2 Impressions: Chest X-Ray 02/11/17 20:55 IMPRESSION: Resolving right upper lobe and right perihilar infiltrate. Guidance Fluoroscopy 02/14/17 00:00 IMPRESSION: SUCCESSFUL PLACEMENT OF A 5 FR DUAL LUMEN 41 CM PICC IN THE left basilic VEIN. Interventional Vascular Procedure 02/14/17 00:00 IMPRESSION: SUCCESSFUL PLACEMENT OF A 5 FR DUAL LUMEN 41 CM PICC IN THE left basilic VEIN. PICC Line Insertion 02/14/17 00:00 IMPRESSION: SUCCESSFUL PLACEMENT OF A 5 FR DUAL LUMEN 41 CM PICC IN THE left basilic VEIN. Assessment & Plan - Diagnosis (1) Sepsis Qualifiers: Sepsis type: Escherichia coli Qualified Code(s): A41.51 - Sepsis due to Escherichia coli [E. coli] Is this a current diagnosis for this admission?: YesPlan: Her to UTI and pneumonia. Patient has ESBL E. coli UTI and bacteremia. Is on imipenem. (2) UTI (urinary tract infection) Qualifiers: Urinary tract infection type: catheter-associated UTI Indwelling urinary catheter type: indwelling urethral catheter Encounter type: initial encounter Qualified Code(s): T83.511A - Infection and inflammatory reaction due to indwelling urethral catheter, initial encounter; N39.0 - Urinary tract infection, site not specified Is this a current diagnosis for this admission?: YesPlan: With chronic indwelling Vazquez catheter and ESBL E. coli UTI. PICC line has been placed. It is on imipenem and can be switched to Merrem on discharge. Day #12/06 Patient stable to be discharged back to nursing facility, but daughter asks we hold him through the weekend. 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 Fair Control sugars. 02/15/17 02/15/17 02/15/17 08:05 11:28 15:43 Glucose 118 H POC Glucose 130 H 111 H 02/15/17 02/16/17 02/16/17 22:31 05:21 11:25 Glucose POC Glucose 144 H 114 H 110 (6) G tube feedings Is this a current diagnosis for this admission?: Yes (7) HTN (hypertension) Qualifiers: Hypertension type: essential hypertension Qualified Code(s): I10 - Essential (primary) hypertension Is this a current diagnosis for this admission?: Yes (8) History of stroke Is this a current diagnosis for this admission?: Yes (9) Seizure disorder Is this a current diagnosis for this admission?: YesPlan: Continue Keppra (10) Full code status Is this a current diagnosis for this admission?: Yes (11) Dementia Qualifiers: Dementia type: unspecified type Dementia behavioral disturbance: without behavioral disturbance Qualified Code(s): F03.90 - Unspecified dementia without behavioral disturbance Is this a current diagnosis for this admission?: Yes (12) Sacral decubitus ulcer, stage III Is this a current diagnosis for this admission?: YesPlan: Continue dressing recommendations per wound care management. - Time Time Spent with patient: 15-24 minutes Medications reviewed and adjusted accordingly: Yes Anticipated discharge: SNF Within: within 24 hours
[2017-02-16] MEDS: IMIPENEM/CILASTATIN SODIUM 1,000 MG in NORMAL SALINE 250 ML IV SCH (17:17)
[2017-02-16] MEDS: INSULIN GLARGINE,HUM.REC.ANLOG 300 UNIT/3 ML INSULN.PEN SUBCUT SCH (22:15)
[2017-02-17] MEDS: GUAIFENESIN SYRP 200 MG/10 ML UDC PEG SCH ×5 (00:08→23:15)
[2017-02-17] MEDS: IMIPENEM/CILASTATIN SODIUM 1,000 MG in NORMAL SALINE 250 ML IV SCH ×5 (00:13→23:16)
[2017-02-17] MEDS: IPRATROPIUM/ALBUTEROL 0.5-2.5 MG/3 ML AMPUL NEB SCH ×4 (01:44→20:45)
[2017-02-17] MEDS: ISOSORB DINIT/HYDRALAZINE HCL 20-37.5 MG TABLET PEG SCH ×3 (05:56→21:54)
[2017-02-17] MEDS: HEPARIN SOD (PORCINE) 5,000 UNIT/ML 1 ML SYRINGE SUBCUT SCH ×3 (05:58→21:54)
[2017-02-17 10:15] LABS: ABSOLUTE BASOPHILS # (AUTO) 0.1 10^3/uL (0.0-0.2); ABSOLUTE EOSINOPHILS # (AUTO) 0.6 10^3/uL (0.0-0.6); ABSOLUTE MONOCYTES (AUTO) 0.8 10^3/uL (0.1-1.4); ABSOLUTE NEUT (AUTO) 9.5 10^3/uL (1.7-8.2); BASOPHILS % (AUTO) 0.5 % (0-2); EOSINOPHILS % (AUTO) 4.8 % (0-6); HEMATOCRIT 29.5 % (37.9-51.0); HEMOGLOBIN 9.3 g/dL (13.5-17.0); HGB HCT DIFFERENCE -1.6; LYMPHOCYTES % (AUTO) 8.4 % (13-45); MEAN CORPUSCULAR HGB CONC 31.4 g/dL (32.0-36.0); MEAN CORPUSCULAR VOLUME 89 fl (80-97); MONOCYTES % (AUTO) 6.7 % (3-13); RED BLOOD COUNT 3.31 10^6/uL (4.35-5.55); RED CELL DISTRIBUTION WIDTH 17.1 % (11.5-14.0); SEGMENTED NEUTROPHILS % (AUTO) 79.6 % (42-78); WHITE BLOOD COUNT 11.9 10^3/uL (4.0-10.5)
[2017-02-17 10:34] LABS: ANION GAP 9 (5-19); BLOOD UREA NITROGEN 9 mg/dL (7-20); CALCIUM 8.7 mg/dL (8.4-10.2); CARBON DIOXIDE 27 mmol/L (22-30); CHLORIDE 108 mmol/L (98-107); CREATININE RESULT 0.52 mg/dL (0.52-1.25); GLUCOSE 115 mg/dL (75-110); POTASSIUM 4.1 mmol/L (3.6-5.0); SODIUM 143.6 mmol/L (137-145)
[2017-02-17] MEDS: FAMOTIDINE 20 MG TABLET PEG SCH ×2 (11:10→21:54)
[2017-02-17] MEDS: LEVETIRACETAM ORAL SOLN 500 MG/5 ML UDCUP PEG SCH ×2 (11:11→21:54)
[2017-02-17] MEDS: ZINC SULFATE 220 MG CAPSULE PEG SCH (11:11)
[2017-02-17] MEDS: ASCORBIC ACID 500 MG TABLET PEG SCH (11:11)
[2017-02-17] MEDS: METOPROLOL TARTRATE 25 MG TABLET PEG SCH ×2 (11:14→21:54)
[2017-02-17] MEDS: NORMAL SALINE 10 ML SDV (SCHEDULED) IV SCH ×2 (11:15→21:54)
[2017-02-17] MEDS ORDERED: LISINOPRIL 10 MG TABLET PEG ONE (11:30)
[2017-02-17] MEDS: POLYETHYLENE GLYCOL 3350 POWDER 17 GM/1 PACKET PEG SCH (11:38)
[2017-02-17] MEDS: LACTULOSE SYRUP 20 GM/30 ML UDCUP PO SCH ×2 (11:38→17:58)
--- NOTE | 2017-02-17 15:46 | PDOC PROGRESS REPORT ---
Subjective Progress Note for:: 02/17/17 Subjective:: Related for discharge today, but had a fever of 100.4 today. Review of systems from patient secondary to his underlying mental status. Overnight nursing reported significant amount of loose stool. Physical Exam Vital Signs: Temp Pulse Resp BP Pulse Ox 99.0 F 85 18 142/68 H 100 02/17/17 11:53 02/17/17 11:53 02/17/17 11:53 02/17/17 11:53 02/17/17 11:53 Intake & Output 02/16/17 02/17/17 02/18/17 06:59 06:59 06:59 Intake Total 1549 3225 255 Output Total 500 1500 400 Balance 1049 1725 -145 Weight 85.4 kg 85.2 kg Exam: GENERAL: No acute distress, mildly diaphoretic HEENT: Conjunctiva clear, nonicteric, moist mucous membranes, no JVD, midline trachea RESPIRATORY: Diminished overall rhonchi left lower lobe CARDIAC: Regular rate and rhythm, no murmurs/gallops/rubs ABDOMEN: Soft, nondistended, active bowel sounds, no rebound, no guarding EXTREMETIES: contracted with muscle wasting, 1+edema NEUROLOGIC: contracted with muscle wasting of bue, expressive aphasia SKIN: Stage 3 decubitus tunneling with surrounding stage 2 ulceration Results Laboratory Results: 02/17/17 09:45 02/17/17 09:45 02/17/17 02/17/17 09:45 09:45 WBC 11.9 H RBC 3.31 L Hgb 9.3 L Hct 29.5 L MCV 89 MCH 28.0 MCHC 31.4 L RDW 17.1 H Plt Count 143 L Seg Neutrophils % 79.6 H Lymphocytes % 8.4 L Monocytes % 6.7 Eosinophils % 4.8 Basophils % 0.5 Absolute Neutrophils 9.5 H Absolute Lymphocytes 1.0 Absolute Monocytes 0.8 Absolute Eosinophils 0.6 Absolute Basophils 0.1 Sodium 143.6 Potassium 4.1 Chloride 108 H Carbon Dioxide 27 Anion Gap 9 BUN 9 Creatinine 0.52 Est GFR ( Amer) > 60 Est GFR (Non-Af Amer) > 60 Glucose 115 H Calcium 8.7 Impressions: Chest X-Ray 02/11/17 20:55 IMPRESSION: Resolving right upper lobe and right perihilar infiltrate. Guidance Fluoroscopy 02/14/17 00:00 IMPRESSION: SUCCESSFUL PLACEMENT OF A 5 FR DUAL LUMEN 41 CM PICC IN THE left basilic VEIN. Interventional Vascular Procedure 02/14/17 00:00 IMPRESSION: SUCCESSFUL PLACEMENT OF A 5 FR DUAL LUMEN 41 CM PICC IN THE left basilic VEIN. PICC Line Insertion 02/14/17 00:00 IMPRESSION: SUCCESSFUL PLACEMENT OF A 5 FR DUAL LUMEN 41 CM PICC IN THE left basilic VEIN. Assessment & Plan - Diagnosis (1) Sepsis Qualifiers: Sepsis type: Escherichia coli Qualified Code(s): A41.51 - Sepsis due to Escherichia coli [E. coli] Is this a current diagnosis for this admission?: YesPlan: 2/2 to UTI and pneumonia. Patient has ESBL E. coli UTI and bacteremia. Is on imipenem requires 10 additional days of antibiotics. Repeat patient's labs at this time (2) UTI (urinary tract infection) Qualifiers: Urinary tract infection type: catheter-associated UTI Indwelling urinary catheter type: indwelling urethral catheter Encounter type: initial encounter Qualified Code(s): T83.511A - Infection and inflammatory reaction due to indwelling urethral catheter, initial encounter; N39.0 - Urinary tract infection, site not specified Is this a current diagnosis for this admission?: YesPlan: With chronic indwelling Vazquez catheter and ESBL E. coli UTI. PICC line has been placed. He is on imipenem and can be switched to Merrem on discharge. 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 Good control of sugars. (6) G tube feedings Is this a current diagnosis for this admission?: Yes (7) HTN (hypertension) Qualifiers: Hypertension type: essential hypertension Qualified Code(s): I10 - Essential (primary) hypertension Is this a current diagnosis for this admission?: Yes (8) History of stroke Is this a current diagnosis for this admission?: Yes (9) Seizure disorder Is this a current diagnosis for this admission?: Yes (10) Dementia Qualifiers: Dementia type: unspecified type Dementia behavioral disturbance: without behavioral disturbance Qualified Code(s): F03.90 - Unspecified dementia without behavioral disturbance Is this a current diagnosis for this admission?: Yes (11) Sacral decubitus ulcer, stage III Is this a current diagnosis for this admission?: Yes (12) Full code status Is this a current diagnosis for this admission?: Yes (13) Fever Qualifiers: Fever type: unspecified Qualified Code(s): R50.9 - Fever, unspecified Is this a current diagnosis for this admission?: YesPlan: Currently on imipenem. Will repeat UA urine culture, blood cultures, and chest x-ray. Concerned that this may be secondary to transitioned to imipenem. And this could be a drug fever. Will repeat CBC, BMP. - Time Time Spent with patient: 25-34 minutes Medications reviewed and adjusted accordingly: Yes
--- NOTE | 2017-02-17 16:57 | RADIOLOGY REPORT (SQ) ---
EXAM DESCRIPTION: CHEST SINGLE VIEW COMPLETED DATE/TIME: 02/17/2017 4:15 pm REASON FOR STUDY: new fever COMPARISON: Chest films 02/11/2017, 01/18/2017, 11/16/2016 EXAM PARAMETERS: NUMBER OF VIEWS: One view. TECHNIQUE: Single frontal radiographic view of the chest acquired. RADIATION DOSE: NA LIMITATIONS: None. FINDINGS: LUNGS AND PLEURA: Near complete clearing of the right upper lobe airspace disease compared to previous studies. On today's exam, no dense consolidation is present worrisome for pneumonia. N o pleural effusion. No pneumothorax. MEDIASTINUM AND HILAR STRUCTURES: No masses. Contour normal. HEART AND VASCULAR STRUCTURES: Heart normal in size. Normal vasculature. BONES: No acute findings. HARDWARE: Left-sided PICC line tip superior vena cava OTHER: No other significant finding. IMPRESSION: Left-sided PICC line tip superior vena cava. Near complete clearing of the right upper lobe airspace disease compared to previous studies. TECHNICAL DOCUMENTATION: JOB ID: [id number]
[2017-02-17 17:01] LABS: APPEARANCE,URINE CLEAR; BILIRUBIN,URINE NEGATIVE (NEGATIVE); GLUCOSE, URINE NEGATIVE (NEGATIVE); KETONES,URINE 25 mg/dL (NEGATIVE); LEUKOCYTE ESTERASE,URINE SMALL (NEGATIVE); NITRITE,URINE NEGATIVE (NEGATIVE); PROTEIN,URINE NEGATIVE (NEGATIVE); UROBILINOGEN,URINE NEGATIVE mg/dL (<2.0)
[2017-02-17] MEDS: INSULIN GLARGINE,HUM.REC.ANLOG 300 UNIT/3 ML INSULN.PEN SUBCUT SCH (22:00)
[2017-02-18] MEDS: IPRATROPIUM/ALBUTEROL 0.5-2.5 MG/3 ML AMPUL NEB SCH ×4 (01:50→20:36)
[2017-02-18] MEDS: HEPARIN SOD (PORCINE) 5,000 UNIT/ML 1 ML SYRINGE SUBCUT SCH ×3 (05:47→22:57)
[2017-02-18] MEDS: ISOSORB DINIT/HYDRALAZINE HCL 20-37.5 MG TABLET PEG SCH ×3 (05:47→22:49)
[2017-02-18] MEDS: GUAIFENESIN SYRP 200 MG/10 ML UDC PEG SCH ×3 (05:47→17:25)
[2017-02-18] MEDS: IMIPENEM/CILASTATIN SODIUM 1,000 MG in NORMAL SALINE 250 ML IV SCH ×3 (05:47→17:25)
[2017-02-18 09:29] LABS: ABSOLUTE BASOPHILS # (AUTO) 0.1 10^3/uL (0.0-0.2); ABSOLUTE EOSINOPHILS # (AUTO) 0.5 10^3/uL (0.0-0.6); ABSOLUTE LYMPHOCYTES (AUTO) 1.5 10^3/uL (0.5-4.7); ABSOLUTE MONOCYTES (AUTO) 0.8 10^3/uL (0.1-1.4); BASOPHILS % (AUTO) 0.4 % (0-2); EOSINOPHILS % (AUTO) 3.7 % (0-6); HEMOGLOBIN 8.9 g/dL (13.5-17.0); HGB HCT DIFFERENCE -1.3; LYMPHOCYTES % (AUTO) 10.3 % (13-45); MEAN CORPUSCULAR HEMOGLOBIN 28.1 pg (27.0-33.4); MEAN CORPUSCULAR HGB CONC 31.8 g/dL (32.0-36.0); MEAN CORPUSCULAR VOLUME 88 fl (80-97); MONOCYTES % (AUTO) 5.4 % (3-13); RED BLOOD COUNT 3.18 10^6/uL (4.35-5.55); RED CELL DISTRIBUTION WIDTH 17.6 % (11.5-14.0); SEGMENTED NEUTROPHILS % (AUTO) 80.2 % (42-78)
[2017-02-18] MEDS: METOPROLOL TARTRATE 25 MG TABLET PEG SCH ×2 (11:10→22:48)
[2017-02-18] MEDS: ASCORBIC ACID 500 MG TABLET PEG SCH (11:10)
[2017-02-18] MEDS: FAMOTIDINE 20 MG TABLET PEG SCH ×2 (11:12→22:48)
[2017-02-18] MEDS: ZINC SULFATE 220 MG CAPSULE PEG SCH (11:12)
[2017-02-18] MEDS: LISINOPRIL 10 MG TABLET PEG SCH (11:12)
[2017-02-18] MEDS: LEVETIRACETAM ORAL SOLN 500 MG/5 ML UDCUP PEG SCH ×2 (11:13→22:48)
[2017-02-18] MEDS: NORMAL SALINE 10 ML SDV (SCHEDULED) IV SCH ×2 (11:14→22:49)
[2017-02-18] MEDS: LACTULOSE SYRUP 20 GM/30 ML UDCUP PO SCH ×2 (11:15→17:25)
[2017-02-18] MEDS: POLYETHYLENE GLYCOL 3350 POWDER 17 GM/1 PACKET PEG SCH (11:15)
[2017-02-18] MEDS ORDERED: MORPHINE SULFATE 10 MG/ML INJ IV PRN (13:24)
[2017-02-18] MEDS ORDERED: FUROSEMIDE INJ/PF 20 MG/2 ML SDV IV ONE (14:00)
[2017-02-18] MEDS ORDERED: SILVER SULFADIAZINE 1% CREAM 25 GM TP ONE (14:00)
--- NOTE | 2017-02-18 14:18 | RADIOLOGY REPORT (SQ) ---
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 NUMBER OF VIEWS: One view. TECHNIQUE: Supine radiographic image of the abdomen acquired. LIMITATIONS: None. FINDINGS: BOWEL GAS PATTERN: Normal bowel gas pattern. No dilated loops. CALCIFICATIONS: No suspicious calcifications. SOFT TISSUES: No gross mass or suggestion of organomegaly. HARDWARE: A gastrostomy tube is present. BONES: No acute fracture. No worrisome bone lesions. OTHER: No other significant finding. IMPRESSION: NO RADIOGRAPHIC EVIDENCE FOR ACUTE ABDOMINAL DISEASE. TECHNICAL DOCUMENTATION: JOB ID: [id number] [employer]- All Rights Reserved
[2017-02-18 14:46] LABS: PROTHROMBIN TIME 14.6 SEC (11.4-15.4)
[2017-02-18 14:47] LABS: PARTIAL THROMBOPLASTIN TIME 43.7 SEC (23.5-35.8)
[2017-02-18 14:59] LABS: ANION GAP 9 (5-19); BLOOD UREA NITROGEN 10 mg/dL (7-20); CALCIUM 8.9 mg/dL (8.4-10.2); CARBON DIOXIDE 24 mmol/L (22-30); CHLORIDE 108 mmol/L (98-107); CREATININE RESULT 0.45 mg/dL (0.52-1.25); GLUCOSE 100 mg/dL (75-110); POTASSIUM 4.1 mmol/L (3.6-5.0); SODIUM 140.9 mmol/L (137-145)
[2017-02-18] MEDS: MORPHINE SULFATE 10 MG/ML INJ IV PRN ×2 (15:34→22:49)
--- NOTE | 2017-02-18 16:48 | PDOC PROGRESS REPORT ---
Subjective Progress Note for:: 02/18/17 Subjective:: Patient is to have a fever today. Review of systems from patient secondary to his underlying mental status. Seen with nurse Hernandez. Physical Exam Vital Signs: Temp Pulse Resp BP Pulse Ox 98.9 F 84 18 155/73 H 100 02/18/17 15:32 02/18/17 15:32 02/18/17 15:32 02/18/17 15:32 02/18/17 15:32 Intake & Output 02/17/17 02/18/17 02/19/17 06:59 06:59 06:59 Intake Total 3225 3643 0 Output Total 1500 1850 600 Balance 1725 1793 -600 Weight 85.2 kg 90.1 kg Exam: GENERAL: No acute distress, mildly diaphoretic HEENT: Conjunctiva clear, nonicteric, moist mucous membranes, no JVD, midline trachea RESPIRATORY: Left lower lobe, crackles CARDIAC: Regular rate and rhythm, no murmurs/gallops/rubs ABDOMEN: Soft, mildly distended, active bowel sounds, no rebound, voluntary guarding : Right swollen and tender tested, scrotal edema EXTREMETIES: contracted with muscle wasting, 2+edema NEUROLOGIC: contracted with muscle wasting of bue, expressive aphasia SKIN: Stage 3 decubitus tunneling with surrounding stage 2 ulceration, well healing and non-purulent, bullae on piccline dressing Results Laboratory Results: 02/18/17 08:48 02/18/17 14:00 02/17/17 02/18/17 02/18/17 16:30 08:48 14:00 WBC 15.0 H RBC 3.18 L Hgb 8.9 L Hct 28.0 L MCV 88 MCH 28.1 MCHC 31.8 L RDW 17.6 H Plt Count 155 Seg Neutrophils % 80.2 H Lymphocytes % 10.3 L Monocytes % 5.4 Eosinophils % 3.7 Basophils % 0.4 Absolute Neutrophils 12.0 H Absolute Lymphocytes 1.5 Absolute Monocytes 0.8 Absolute Eosinophils 0.5 Absolute Basophils 0.1 Sodium 140.9 Potassium 4.1 Chloride 108 H Carbon Dioxide 24 Anion Gap 9 BUN 10 Creatinine 0.45 L Est GFR ( Amer) > 60 Est GFR (Non-Af Amer) > 60 Glucose 100 Lactic Acid Calcium 8.9 Urine Color COLORLESS Urine Appearance CLEAR Urine pH 7.0 Ur Specific [place] 1.000 Urine Protein NEGATIVE Urine Glucose (UA) NEGATIVE Urine Ketones 25 H Urine Blood NEGATIVE Urine Nitrite NEGATIVE Ur Leukocyte Esterase SMALL H 02/18/17 14:00 WBC RBC Hgb Hct MCV MCH MCHC RDW Plt Count Seg Neutrophils % Lymphocytes % Monocytes % Eosinophils % Basophils % Absolute Neutrophils Absolute Lymphocytes Absolute Monocytes Absolute Eosinophils Absolute Basophils Sodium Potassium Chloride Carbon Dioxide Anion Gap BUN Creatinine Est GFR ( Amer) Est GFR (Non-Af Amer) Glucose Lactic Acid 0.7 Calcium Urine Color Urine Appearance Urine pH Ur Specific [place] Urine Protein Urine Glucose (UA) Urine Ketones Urine Blood Urine Nitrite Ur Leukocyte Esterase Impressions: Guidance Fluoroscopy 02/14/17 00:00 IMPRESSION: SUCCESSFUL PLACEMENT OF A 5 FR DUAL LUMEN 41 CM PICC IN THE left basilic VEIN. Interventional Vascular Procedure 02/14/17 00:00 IMPRESSION: SUCCESSFUL PLACEMENT OF A 5 FR DUAL LUMEN 41 CM PICC IN THE left basilic VEIN. PICC Line Insertion 02/14/17 00:00 IMPRESSION: SUCCESSFUL PLACEMENT OF A 5 FR DUAL LUMEN 41 CM PICC IN THE left basilic VEIN. Chest X-Ray 02/17/17 00:00 IMPRESSION: Left-sided PICC line tip superior vena cava. Near complete clearing of the right upper lobe airspace disease compared to previous studies. KUB X-Ray 02/18/17 00:00 IMPRESSION: NO RADIOGRAPHIC EVIDENCE FOR ACUTE ABDOMINAL DISEASE. Assessment & Plan - Diagnosis (1) Fever Qualifiers: Fever type: unspecified Qualified Code(s): R50.9 - Fever, unspecified Is this a current diagnosis for this admission?: YesPlan: Currently on imipenem. Have repeated UA urine culture, blood cultures, and chest x-ray. Pending CT of the abdomen and pelvis as well as scrotal ultrasound. Concerned that this may be secondary to transitioned to imipenem. And this could be a drug fever. Will repeat CBC, BMP. (2) Sepsis Qualifiers: Sepsis type: Escherichia coli Qualified Code(s): A41.51 - Sepsis due to Escherichia coli [E. coli] Is this a current diagnosis for this admission?: YesPlan: 2/2 to UTI and pneumonia. Patient has ESBL E. coli UTI and bacteremia. Is on imipenem requires 10 additional days of antibiotics. Currently has new fever with unknown source. Patient is currently well covered on imipenem and reluctant reluctant to change his antibiotics without any new culture findings. The patient's C. difficile was negative. (3) UTI (urinary tract infection) Qualifiers: Urinary tract infection type: catheter-associated UTI Indwelling urinary catheter type: indwelling urethral catheter Encounter type: initial encounter Qualified Code(s): T83.511A - Infection and inflammatory reaction due to indwelling urethral catheter, initial encounter; N39.0 - Urinary tract infection, site not specified Is this a current diagnosis for this admission?: YesPlan: With chronic indwelling Vazquez catheter and ESBL E. coli UTI. PICC line has been placed. He is on imipenem and can be switched to Merrem on discharge. Day #01/05 (4) Aspiration pneumonia Qualifiers: Aspiration pneumonia type: unspecified Laterality: right Lung location: lower lobe of lung Qualified Code(s): J69.0 - Pneumonitis due to inhalation of food and vomit Is this a current diagnosis for this admission?: YesPlan: Continue treatment with Imipenem (5) Anemia of chronic disease Is this a current diagnosis for this admission?: Yes (6) Diabetes mellitus Qualifiers: Diabetes mellitus type: type 2 Diabetes mellitus complication status: with unspecified complications Diabetes mellitus snf insulin use: with snf use Qualified Code(s): E11.8 - Type 2 diabetes mellitus with unspecified complications; 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 Good control of sugars. (7) G tube feedings Is this a current diagnosis for this admission?: Yes (8) HTN (hypertension) Qualifiers: Hypertension type: essential hypertension Qualified Code(s): I10 - Essential (primary) hypertension Is this a current diagnosis for this admission?: Yes (9) History of stroke Is this a current diagnosis for this admission?: Yes (10) Seizure disorder Is this a current diagnosis for this admission?: Yes (11) Dementia Qualifiers: Dementia type: unspecified type Dementia behavioral disturbance: without behavioral disturbance Qualified Code(s): F03.90 - Unspecified dementia without behavioral disturbance Is this a current diagnosis for this admission?: Yes (12) Sacral decubitus ulcer, stage III Is this a current diagnosis for this admission?: Yes (13) Full code status Is this a current diagnosis for this admission?: Yes - Time Time Spent with patient: 35 or more minutes Medications reviewed and adjusted accordingly: Yes Anticipated discharge: SNF - Inpatient Certification Medical Necessity: Need for IV Antibiotics, Risk of Complication if Not Cared For in Hospital
--- NOTE | 2017-02-18 16:52 | RADIOLOGY REPORT (SQ) ---
EXAM DESCRIPTION: CT ABD/PELVIS WITH IV ORAL COMPLETED DATE/TIME: 02/18/2017 4:17 pm REASON FOR STUDY: abd distention and scrotal swelling, FUO COMPARISON: CT abdomen pelvis 12/20/2016, 03/11/2016, 10/04/2015 TECHNIQUE: CT scan of the abdomen and pelvis performed using helical scanning technique with dynamic intravenous contrast injection. No oral contrast. Images reviewed with lung, soft tissue, and bone windows. Reconstructed coronal and sagittal MPR images reviewed. Delayed images for evaluation of the urinary system also acquired. All images stored on PACS. All CT scanners at this facility use dose modulation, iterative reconstruction, and/or weight based d osing when appropriate to reduce radiation dose to as low as reasonably achievable (ALARA). [facility]: Dose Right [facility]: CareDose [facility]: Dose Right [facility]: Teradose 4D [facility]: Seakeeper CONTRAST TYPE AND DOSE: contrast/concentration: Isovue 370.00 mg/ml; Total Contrast Delivered: 97.0 ml; Total Saline Delivered: 72.0 ml RENAL FUNCTION: Creatinine 0.45 RADIATION DOSE: Up-to-date CT equipment and radiation dose reduction techniques were employed. CTDIv ol: 21.2 - 21.8 mGy. DLP: 2176 mGy-cm.. LIMITATIONS: None. FINDINGS: LOWER CHEST: Grossly clear LIVER: Normal size. No masses or dilated ducts. Benign-appearing subcentimeter cysts in the right lo be sub- diaphragmatic surface and inferior left lobe. SPLEEN: Normal size. No focal lesions. PANCREAS: No masses. No significant calcifications. No adjacent inflammation or peripancreatic fluid collections. Pancreatic duct not dilated. GALLBLADDER: No identified stones by CT criteria. No inflammatory changes to suggest cholecystitis. ADRENAL GLANDS: No significant masses or asymmetry. RIGHT KIDNEY AND URETER: No solid masses. No significant calcifications. No hydronephrosis or hyd roureter. LEFT KIDNEY AND URETER: No solid masses. 3.2 cm cyst left lower pole kidney. No significant calcifi cations. No hydronephrosis or hydroureter. AORTA AND VESSELS: No aneurysm. No dissection. Renal arteries, SMA, celiac without stenosis. RETROPERITONEUM: No retroperitoneal adenopathy, hemorrhage or masses. BOWEL AND PERITONEAL CAVITY: No masses or inflammatory changes. No free fluid or peritoneal masses. Oral contrast throughout the gastrointestinal tract. No evidence of bowel obstruction. Gastrostomy tube balloon in good positioning on axial image 35. APPENDIX: Normal. PELVIS: Vazquez catheter is present, with the balloon in the prostatic urethra on axial image 81 and sa gittal image 45. There is an air bubble in the bladder suggesting that this is effectively draining urine. This finding was discussed with Dr. Rodarte. Prostate measures 6.8 x 5.1 cm in size. I n the rightward half of the prostate, a hypodense fluid filled structure 3 x 3.4 cm present on axial image 77. This is new compared to the previous study. This could represent a small abscess inside t he prostate gland. No free pelvic fluid. No adenopathy. ABDOMINAL WALL: No masses. No hernias. BONES: No significant or acute findings. OTHER: No other significant finding. IMPRESSION: Vazquez catheter tip and balloon is in the prostatic urethra. There is an air-fluid level in the bladder fundus suggesting that the catheter is patent. 3cm x 3.4 cm fluid collection inside the prostate gland to the right of midline, question small adilia armin, abscess, or urethral diverticulum TECHNICAL DOCUMENTATION: JOB ID: [id number] Quality ID # [id number]: Final reports with documentation of one or more dose reduction techniques (e.g., Au tomated exposure control, adjustment of the mA and/or kV according to patient size, use of iterative reconstruction technique) 2010 [employer]- All Rights Reserved
--- NOTE | 2017-02-18 17:21 | RADIOLOGY REPORT (SQ) ---
EXAM DESCRIPTION: U/S SCROTUM W/DOPPLER COMPLETED DATE/TIME: 02/18/2017 5:08 pm REASON FOR STUDY: right sided scrotal swelling pain COMPARISON: None. TECHNIQUE: Static and realtime souza scale imaging of the scrotum and testes. Selected color Doppler and spectral images recorded to document blood flow. LIMITATIONS: None. FINDINGS: RIGHT: TESTICLE: Normal size. Normal echotexture. Normal blood flow. No mass. EPIDIDYMIS: Complex cystic areas noted measuring 0.4 x 0.5 x 0.3 cm otherwise normal in size. . HYDROCELE OR VARICOCELE: Large septated hydrocele/fluid collection noted adjacent to the testicle jamari suring 5.6 x 3.5 x 3.0 cm with minimal hypervascularity. HERNIA OR EXTRA-TESTICULAR MASS: No. OTHER: No other significant finding. LEFT: TESTICLE: Normal size. Normal echotexture. Normal blood flow. No mass. Small cyst seen in the test icle measuring 0.8 x 0.7 x 0.5 cm. EPIDIDYMIS: Mildly enlarged measuring 1.8 x 1.4 x 1.1 cm HYDROCELE OR VARICOCELE: Small hydrocele some internal debris measuring a 1.8 x 1.3 x 1.1 cm HERNIA OR EXTRA-TESTICULAR MASS: No. OTHER: No other significant finding. IMPRESSION: No testicular mass lesions. Small cysts noted in the left testicle. There is slight en largement of the left testicle measuring 1.8 x 1.4 x 1.1 cm. Complex cystic areas seen in the epidid ymal head measuring 0.4 x 0.5 x 0.3 cm. Bilateral hydroceles significantly larger on the right than on the left with septations and internal debris. No hypervascularity associated hydroceles. TECHNICAL DOCUMENTATION: JOB ID: [id number] [employer]- All Rights Reserved
[2017-02-18] MEDS ORDERED: INSULIN GLARGINE,HUM.REC.ANLOG 300 UNIT/3 ML INSULN.PEN SUBCUT SCH (22:00)
[2017-02-18] MEDS: INSULIN GLARGINE,HUM.REC.ANLOG 300 UNIT/3 ML INSULN.PEN SUBCUT SCH (22:57)
[2017-02-19] MEDS: IMIPENEM/CILASTATIN SODIUM 1,000 MG in NORMAL SALINE 250 ML IV SCH ×5 (00:53→23:22)
[2017-02-19] MEDS: GUAIFENESIN SYRP 200 MG/10 ML UDC PEG SCH ×5 (00:55→23:21)
[2017-02-19] MEDS: IPRATROPIUM/ALBUTEROL 0.5-2.5 MG/3 ML AMPUL NEB SCH ×4 (01:57→20:23)
[2017-02-19] MEDS: HEPARIN SOD (PORCINE) 5,000 UNIT/ML 1 ML SYRINGE SUBCUT SCH ×3 (05:40→21:51)
[2017-02-19] MEDS: ISOSORB DINIT/HYDRALAZINE HCL 20-37.5 MG TABLET PEG SCH ×3 (05:41→21:52)
[2017-02-19] MEDS: LEVETIRACETAM ORAL SOLN 500 MG/5 ML UDCUP PEG SCH ×2 (11:21→21:52)
[2017-02-19] MEDS: LACTULOSE SYRUP 20 GM/30 ML UDCUP PO SCH ×2 (11:21→16:37)
[2017-02-19] MEDS: METOPROLOL TARTRATE 25 MG TABLET PEG SCH ×2 (11:22→21:52)
[2017-02-19] MEDS: POLYETHYLENE GLYCOL 3350 POWDER 17 GM/1 PACKET PEG SCH (11:22)
[2017-02-19] MEDS: ASCORBIC ACID 500 MG TABLET PEG SCH (11:22)
[2017-02-19] MEDS: LISINOPRIL 10 MG TABLET PEG SCH (11:23)
[2017-02-19] MEDS: ZINC SULFATE 220 MG CAPSULE PEG SCH (11:23)
[2017-02-19] MEDS: FAMOTIDINE 20 MG TABLET PEG SCH ×2 (11:23→21:51)
[2017-02-19] MEDS: NORMAL SALINE 10 ML SDV (SCHEDULED) IV SCH ×2 (11:23→21:52)
--- NOTE | 2017-02-19 12:32 | PDOC PROGRESS REPORT ---
Subjective Progress Note for:: 02/19/17 Subjective:: Patient is nonverbal. No reported respiratory distress nausea or vomiting. Patient is on day 4 of Primaxin. Urine and blood culture grew ESBL. CT of the abdomen and pelvis shows a questionable fluid collection in the prostate. Vazquez catheter has been advanced and repositioned. Patient with small loose bowel movement but with recent Clostridium difficile toxin that was negative. Physical Exam Vital Signs: Temp Pulse Resp BP Pulse Ox 98.0 F 89 18 140/64 H 98 02/19/17 07:44 02/19/17 08:13 02/19/17 08:13 02/19/17 07:44 02/19/17 08:13 Intake & Output 02/18/17 02/19/17 02/20/17 06:59 06:59 06:59 Intake Total 3643 750 Output Total 1850 2900 Balance 1793 -2150 Weight 90.1 kg 88.5 kg General appearance: PRESENT: no acute distress, obese, other - Nonverbal Head exam: PRESENT: normocephalic Eye exam: PRESENT: conjunctiva pink Mouth exam: PRESENT: moist, neck supple Neck exam: ABSENT: JVD Respiratory exam: PRESENT: decreased breath sounds - Poor effort. ABSENT: rhonchi, wheezes Cardiovascular exam: PRESENT: RRR. ABSENT: gallop GI/Abdominal exam: PRESENT: distended - Mildly, soft, other - Slight tympany to percussion. ABSENT: tenderness Extremities exam: ABSENT: pedal edema Psychiatric exam: ABSENT: agitated Focused psych exam: ABSENT: restlessness Skin exam: PRESENT: dry, warm. ABSENT: cyanosis Results Laboratory Results: 02/18/17 08:48 02/18/17 14:00 02/18/17 02/18/17 14:00 14:00 Sodium 140.9 Potassium 4.1 Chloride 108 H Carbon Dioxide 24 Anion Gap 9 BUN 10 Creatinine 0.45 L Est GFR ( Amer) > 60 Est GFR (Non-Af Amer) > 60 Glucose 100 Lactic Acid 0.7 Calcium 8.9 02/17/17 16:30 Vazquez Catheter Urine Culture - Final NO GROWTH 2 DAYS Impressions: Guidance Fluoroscopy 02/14/17 00:00 IMPRESSION: SUCCESSFUL PLACEMENT OF A 5 FR DUAL LUMEN 41 CM PICC IN THE left basilic VEIN. Interventional Vascular Procedure 02/14/17 00:00 IMPRESSION: SUCCESSFUL PLACEMENT OF A 5 FR DUAL LUMEN 41 CM PICC IN THE left basilic VEIN. PICC Line Insertion 02/14/17 00:00 IMPRESSION: SUCCESSFUL PLACEMENT OF A 5 FR DUAL LUMEN 41 CM PICC IN THE left basilic VEIN. Chest X-Ray 02/17/17 00:00 IMPRESSION: Left-sided PICC line tip superior vena cava. Near complete clearing of the right upper lobe airspace disease compared to previous studies. Abdomen/Pelvis CT 02/18/17 00:00 IMPRESSION: Vazquez catheter tip and balloon is in the prostatic urethra. There is an air-fluid level in the bladder fundus suggesting that the catheter is patent. 3cm x 3.4 cm fluid collection inside the prostate gland to the right of midline , question small hematoma, abscess, or urethral diverticulum KUB X-Ray 02/18/17 00:00 IMPRESSION: NO RADIOGRAPHIC EVIDENCE FOR ACUTE ABDOMINAL DISEASE. Scrotum Ultrasound 02/18/17 00:00 IMPRESSION: No testicular mass lesions. Small cysts noted in the left testicle. There is slight enlargement of the left testicle measuring 1.8 x 1.4 x 1.1 cm. Complex cystic areas seen in the epididymal head measuring 0.4 x 0.5 x 0.3 cm. Bilateral hydroceles significantly larger on the right than on the left with septations and internal debris. No hypervascularity associated hydroceles. Assessment & Plan - Diagnosis (1) Sepsis Qualifiers: Sepsis type: Escherichia coli Qualified Code(s): A41.51 - Sepsis due to Escherichia coli [E. coli] Is this a current diagnosis for this admission?: Yes (2) UTI (urinary tract infection) Qualifiers: Urinary tract infection type: site unspecified Hematuria presence: without hematuria Qualified Code(s): N39.0 - Urinary tract infection, site not specified Is this a current diagnosis for this admission?: Yes (3) Aspiration pneumonia Qualifiers: Aspiration pneumonia type: unspecified Laterality: right Lung location: lower lobe of lung Qualified Code(s): J69.0 - Pneumonitis due to inhalation of food and vomit Is this a current diagnosis for this admission?: Yes (4) Anemia of chronic disease Is this a current diagnosis for this admission?: Yes (5) Hydrocele in adult Is this a current diagnosis for this admission?: Yes (6) Dementia Qualifiers: Dementia type: unspecified type Dementia behavioral disturbance: without behavioral disturbance Qualified Code(s): F03.90 - Unspecified dementia without behavioral disturbance Is this a current diagnosis for this admission?: Yes (7) Sacral decubitus ulcer, stage IV Is this a current diagnosis for this admission?: Yes (8) Diabetes mellitus Qualifiers: Diabetes mellitus type: type 2 Diabetes mellitus complication status: with unspecified complications Diabetes mellitus [facility] insulin use: with [facility] use Qualified Code(s): E11.8 - Type 2 diabetes mellitus with unspecified complications; 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 Check ultrasound of the prostate to evaluate for any abscess. We will check a KUB for fecal impaction and recheck WBC in the morning. Continue supportive care.
--- NOTE | 2017-02-19 14:01 | RADIOLOGY REPORT (SQ) ---
EXAM DESCRIPTION: KUB/ABDOMEN (SINGLE VIEW) COMPLETED DATE/TIME: 02/19/2017 1:08 pm REASON FOR STUDY: fecal impaction COMPARISON: 02/18/2017 NUMBER OF VIEWS: One view. TECHNIQUE: Supine radiographic image of the abdomen acquired. LIMITATIONS: None. FINDINGS: BOWEL GAS PATTERN: There are gas-filled loops of bowel but no significantly dilated loops of bowel are present. CALCIFICATIONS: No suspicious calcifications. SOFT TISSUES: No gross mass or suggestion of organomegaly. HARDWARE: A gastrostomy tube is present. BONES: No acute fracture. No worrisome bone lesions. OTHER: No other significant finding. IMPRESSION: Nonspecific abdomen. Possible ileus. TECHNICAL DOCUMENTATION: JOB ID: [id number] [employer]- All Rights Reserved
[2017-02-19] MEDS: SILVER SULFADIAZINE 1% CREAM 25 GM TP SCH (14:32)
[2017-02-19] MEDS: MORPHINE SULFATE 10 MG/ML INJ IV PRN (18:37)
[2017-02-19] MEDS: HYDROCODONE/ACETAMINOPHEN 5-325 MG TABLET PEG PRN (21:52)
[2017-02-19] MEDS: INSULIN GLARGINE,HUM.REC.ANLOG 300 UNIT/3 ML INSULN.PEN SUBCUT SCH (23:22)
[2017-02-20] MEDS: IPRATROPIUM/ALBUTEROL 0.5-2.5 MG/3 ML AMPUL NEB SCH ×3 (02:15→14:11)
--- NOTE | 2017-02-20 04:00 | RADIOLOGY REPORT (SQ) ---
EXAM DESCRIPTION: U/S NON-OB PELVIS W/O DOP COMPLETED DATE/TIME: 02/20/2017 1:50 am REASON FOR STUDY: Prostatic abscess COMPARISON: None. TECHNIQUE: Dynamic and static grayscale images acquired of the pelvis via transabdominal approach an d recorded on PACS. Additional selected color Doppler and spectral images recorded. LIMITATIONS: Partially distended urinary bladder. Bowel gas. FINDINGS: Prostate is partially visualized measuring 6.4 x 5.6 x 5.1 cm with a hypoechoic area visib le in the superior portion of the prostate measuring 3.9 x 4.0 x 2.5 cm without significant demonstra jamil vascularity, consistent with CT, 02/18/2017. IMPRESSION: 4.0-cm complex cystic lesion of the prostate persists consistent with CT from 1 [place] [facility] Limitation. TECHNICAL DOCUMENTATION: JOB ID: [id number] [employer]- All Rights Reserved
[2017-02-20] MEDS: HYDROCODONE/ACETAMINOPHEN 5-325 MG TABLET PEG PRN (05:50)
[2017-02-20] MEDS: GUAIFENESIN SYRP 200 MG/10 ML UDC PEG SCH ×3 (05:50→17:59)
[2017-02-20] MEDS: HEPARIN SOD (PORCINE) 5,000 UNIT/ML 1 ML SYRINGE SUBCUT SCH ×2 (05:51→17:51)
[2017-02-20] MEDS: IMIPENEM/CILASTATIN SODIUM 1,000 MG in NORMAL SALINE 250 ML IV SCH ×3 (05:51→17:59)
[2017-02-20] MEDS: ISOSORB DINIT/HYDRALAZINE HCL 20-37.5 MG TABLET PEG SCH ×2 (05:51→17:59)
[2017-02-20 06:20] LABS: HEMATOCRIT 26.9 % (37.9-51.0); HEMOGLOBIN 8.8 g/dL (13.5-17.0); HGB HCT DIFFERENCE -0.5; MEAN CORPUSCULAR HEMOGLOBIN 28.9 pg (27.0-33.4); MEAN CORPUSCULAR HGB CONC 32.8 g/dL (32.0-36.0); MEAN CORPUSCULAR VOLUME 88 fl (80-97); RED BLOOD COUNT 3.05 10^6/uL (4.35-5.55); RED CELL DISTRIBUTION WIDTH 18.1 % (11.5-14.0); WHITE BLOOD COUNT 8.8 10^3/uL (4.0-10.5)
--- NOTE | 2017-02-20 10:45 | PDOC TRANSFER SUMMARY ---
General Admission Date/PCP: 02/11/17 22:36 MARGARITA ZARATE MD Admission Date: 02/12/17 Transfer Date: 02/20/17 Accepting Facility: [facility] Accepting Physician: Dr. Chapa/Dr. matute Resuscitation Status: Full Code - Transfer Diagnosis (1) Sepsis Is this a current diagnosis for this admission?: Yes (2) UTI (urinary tract infection) Is this a current diagnosis for this admission?: Yes (3) Aspiration pneumonia Is this a current diagnosis for this admission?: Yes (4) Anemia of chronic disease Is this a current diagnosis for this admission?: Yes (5) Hydrocele in adult Is this a current diagnosis for this admission?: Yes (6) Dementia Is this a current diagnosis for this admission?: Yes (7) Sacral decubitus ulcer, stage IV Is this a current diagnosis for this admission?: Yes (8) Diabetes mellitus Is this a current diagnosis for this admission?: Yes (9) HTN (hypertension) Is this a current diagnosis for this admission?: Yes (10) History of stroke Is this a current diagnosis for this admission?: Yes (11) Seizure disorder Is this a current diagnosis for this admission?: Yes - Transfer Medications Home Medications: Acetaminophen [Tylenol 325 mg Tablet] 650 mg PEG ASDIR PRN 01/13/17 Ascorbic Acid [Vitamin C 500 mg Tablet] 500 mg PEG DAILY 01/13/17 Cranberry Extract [Cranberry 200 mg Capsule] 400 mg PEG DAILY 01/13/17 Famotidine [Pepcid 20 mg Tablet] 20 mg PEG Q12 01/13/17 Insulin Glargine,Hum.rec.anlog [Lantus Insulin 100 Unit/1 ml 10 ml] 24 unit SUBCUT QHS 01/13/17 Ipratropium/Albuterol Sulfate [Duoneb 3 ml Ampul] 3 ml NEB RTQ6HP PRN 01/13/17 Isosorb Dinit/Hydralazine HCl [Bidil 20-37.5 mg Tablet] 1 tab PEG Q8 01/13/17 Lactulose [Enulose 10 gm/15 mL Oral Solution] 20 gm PEG BID 01/13/17 Levetiracetam [Keppra] 750 mg PEG Q12 01/13/17 Lisinopril [Prinivil 10 mg Tablet] 20 mg PEG DAILY 01/13/17 Metoprolol Tartrate [Lopressor 25 mg Tablet] 12.5 mg PEG Q12 01/13/17 Nitroglycerin [Nitrostat] 0.4 mg SL Q5MP PRN 01/13/17 Polyethylene Glycol 3350 [Miralax Powder 17 gm/Packet] 1 packet PEG DAILY Zinc Sulfate [Zinc-220 Capsule] 220 mg PEG DAILY 01/13/17 Guaifenesin [Siltussin SA] 15 ml PEG Q6 02/12/17 Transfer Medications: Current Medications Acetaminophen (Tylenol 325 Mg Tablet) 650 mg PEG Q6HP PRN PRN Reason: FOR PAIN Stop: 03/13/17 22:33 Last Admin: 02/15/17 06:05 Dose: 650 mg Acetaminophen/Hydrocodone Bitart ([place] 5-325 Mg Tablet) 1 tab PEG Q6HP PRN PRN Reason: PAIN Stop: 02/20/17 11:37 Last Admin: 02/20/17 05:50 Dose: 1 tab Albuterol/Ipratropium (Duoneb 3 Ml Ampul) 3 ml NEB RTQ6HP PRN PRN Reason: SHORTNESS OF BREATH Stop: 03/13/17 22:33 Albuterol/Ipratropium (Duoneb 3 Ml Ampul) 3 ml NEB RTQ6 LEONORA Stop: 03/14/17 01:59 Last Admin: 02/20/17 08:36 Dose: 3 ml Ascorbic Acid (Vitamin C 500 Mg Tablet) 500 mg PEG DAILY LEONORA Stop: 03/14/17 09:59 Last Admin: 02/19/17 11:22 Dose: 500 mg Dextrose (Dextrose Inj 50% Syringe (25 Gm/50 Ml)) 12.5 gm IV PRN PRN; Protocol PRN Reason: FOR BG 50-69 IN ALERT PATIENT Stop: 03/13/17 22:34 Dextrose (Dextrose Inj 50% Syringe (25 Gm/50 Ml)) 25 gm IV PRN PRN PRN Reason: Protocol Stop: 03/13/17 22:34 Famotidine (Pepcid 20 Mg Tablet) 20 mg PEG Q12 LEONORA Stop: 03/14/17 21:59 Last Admin: 02/19/17 21:51 Dose: 20 mg Glucagon (Glucagen Inj 1 Mg Vial) 1 mg IM PRN PRN; Protocol PRN Reason: Evaluate for BG < 70 Stop: 03/13/17 22:34 Glucose (Glutose 40% Gel 15 Gm Tube) 15 gm PO PRN PRN; Protocol PRN Reason: FOR BG 50-69 IN ALERT PATIENT Stop: 03/13/17 22:34 Glucose (Glutose 40% Gel 15 Gm Tube) 30 gm PO PRN PRN; Protocol PRN Reason: FOR BG < 50 IN ALERT PATIENT Stop: 03/13/17 22:34 Guaifenesin (Robitussin Syrup 200 Mg/10 Ml Ud Cup) 300 mg PEG Q6 LEONORA Stop: 03/14/17 17:59 Last Admin: 02/20/17 05:50 Dose: 300 mg Heparin Sodium (Porcine) (Heparin Inj 5,000 Units/Ml 1 Ml Syringe) 5,000 unit SUBCUT Q8 LEONORA Stop: 03/14/17 05:59 Last Admin: 02/20/17 05:51 Dose: 5,000 unit Heparin Sodium (Porcine) (Heparin Flush 10 Unit/Ml 5 Ml Disp.Syrg) 30 unit IV Q12 LEONORA Stop: 03/16/17 21:59 Last Admin: 02/19/17 21:52 Dose: 30 unit Heparin Sodium (Porcine) (Heparin Flush 10 Unit/Ml 5 Ml Disp.Syrg) 30 unit IV .AFTER EACH USE PRN Stop: 03/16/17 13:15 Last Admin: 02/19/17 16:43 Dose: 30 unit Imipenem/Cilastatin Sodium 1, (000 mg/ Sodium Chloride) 250 mls @ 250 mls/hr IV Q6 LEONORA Stop: 02/23/17 17:59 Last Admin: 02/20/17 05:51 Dose: 1,000 mg Insulin Glargine (Lantus Insulin Inj 300 Unit/3 Ml Pen) 24 unit SUBCUT QHS LEONORA Stop: 03/20/17 21:59 Last Admin: 02/19/17 23:22 Dose: 24 unit Insulin Human Lispro (Humalog Insulin 100 Unit/1 Ml 3 Ml Vial) 0 - 12 unit SUBCUT Q6HP PRN PRN Reason: Protocol Stop: 03/13/17 22:34 Last Admin: 02/13/17 06:07 Dose: 2 unit Isosorbide Dinitrate/Hydralazine (Bidil 20-37.5 Mg Tablet) 1 tab PEG Q8 LEONORA Stop: 03/14/17 13:59 Last Admin: 02/20/17 05:51 Dose: 1 tab Lactulose (Cephulac Syrup 20 Gm/30 Ml Udcup) 20 gm PO BID LEONORA Stop: 03/14/17 17:59 Last Admin: 02/19/17 16:37 Dose: 20 gm Levetiracetam (Keppra Oral Soln 500 Mg/5 Ml Udcup) 750 mg PEG Q12 LEONORA Stop: 03/14/17 09:59 Last Admin: 02/19/17 21:52 Dose: 750 mg Lisinopril (Prinivil 10 Mg Tablet) 20 mg PEG DAILY LEONORA Stop: 03/20/17 09:59 Last Admin: 02/19/17 11:23 Dose: 20 mg Metoprolol Tartrate (Lopressor 25 Mg Tablet) 12.5 mg PEG Q12 LEONORA Stop: 03/14/17 21:59 Last Admin: 02/19/17 21:52 Dose: 12.5 mg Morphine Sulfate (Morphine 10 Mg/Ml Inj) 2 mg IV Q4HP PRN PRN Reason: SEVERE PAIN Stop: 02/25/17 13:23 Last Admin: 02/19/17 18:37 Dose: 2 mg Polyethylene Glycol (Miralax Powder 17 Gm/Packet) 17 gm PEG DAILY LEONORA Stop: 03/15/17 09:59 Last Admin: 02/19/17 11:22 Dose: 17 gm Silver Sulfadiazine (Silvadene 1% Cream 25 Gm) 1 applic TP DAILY LEONORA Stop: 03/21/17 09:59 Last Admin: 02/19/17 14:32 Dose: Not Given Sodium Chloride (Saline Flush 2.5 Ml Monoject Prefil Syrin) 2.5 ml IV Q8 LEONORA Stop: 03/14/17 05:59 Last Admin: 02/20/17 05:51 Dose: 2.5 ml Sodium Chloride (Nacl 0.9% Inj/Pf 10 Ml Sdv) 10 ml IV Q12 LEONORA Stop: 03/16/17 21:59 Last Admin: 02/19/17 21:52 Dose: 10 ml Sodium Chloride (Nacl 0.9% Inj/Pf 10 Ml Sdv) 10 ml IV .AFTER EACH USE PRN Stop: 03/16/17 13:15 Last Admin: 02/17/17 05:58 Dose: 10 ml Zinc Sulfate (Zinc-220 Capsule) 220 mg PEG DAILY LEONORA Stop: 03/15/17 09:59 Last Admin: 02/19/17 11:23 Dose: 220 mg - Allergies Allergies/Adverse Reactions: divalproex sodium [From Depakote] Allergy (Verified 01/17/17 17:13) oxycodone [Oxycodone] Adverse Reaction (Intermediate, Verified 01/12/17 19:24) agitation simvastatin [From Zocor] Adverse Reaction (Unknown, Verified 01/12/17 19:24) dysarthria - Diet/Activity Discharge Diet: Tube Feeding (Comments) - Glucerna 1.2 @ 75mL/hr, free water flush Hospital Course Hospital Course: The patient was started on intravenous vancomycin and Zosyn. Intravenous fluids was likewise started. Patient had episodes of hypotension that responded to IV fluids. He was placed on the stepdown unit. Cultures eventually was performed and growing E. coli ESBL both in the urine and blood. At this point the patient's Zosyn was discontinued and shifted to Primaxin. While in the stepdown unit the patient was referred to surgery for the decubitus ulcer but no debridement was necessary at that time. The patient was treated for aspiration pneumonia initially and eventually for ESBL E. coli sepsis and urinary tract infection. His course was noted for some abdominal distention with CT of the abdomen and pelvis did not reveal any obstruction or ileus however noted a cystic lesion on the prostate. Likewise the catheter was noted on the prostatic urethra and this was advanced and corrected. Patient also had a scrotal ultrasound showing hydrocele. Eventually a pelvic ultrasound was performed confirming this cystic lesion in the prostate. This was discussed with urology service at [facility] who agreed with assessment that the possibility of abscess is present. The case was therefore referred to the hospitalist service due to multiple comorbidities and was accepted by Dr. Chapa/Dr. Mackay. The rest of the hospital stays unremarkable. Patient was eventually transferred The when a bed is available. Physical Exam Vital Signs: Temp Pulse Resp BP Pulse Ox 97.8 F 84 18 114/52 L 97 02/20/17 07:53 02/20/17 08:41 02/20/17 08:41 02/20/17 07:53 02/20/17 08:41 Intake & Output 02/19/17 02/20/17 02/21/17 06:59 06:59 06:59 Intake Total 750 1250 Output Total 2900 1700 Balance -2150 -450 Weight 88.5 kg 89.4 kg General appearance: PRESENT: no acute distress, other - Nonverbal Head exam: PRESENT: normocephalic Eye exam: PRESENT: conjunctiva pale Mouth exam: PRESENT: moist Neck exam: ABSENT: JVD Respiratory exam: PRESENT: decreased breath sounds - Bilateral but with poor effort, rhonchi - Minimal, unlabored. ABSENT: wheezes Cardiovascular exam: PRESENT: RRR, +S1, +S2. ABSENT: gallop GI/Abdominal exam: PRESENT: diminished bowel sounds, soft, other - feeding tube in place. ABSENT: guarding, tenderness Extremities exam: PRESENT: other - Trace edema Neurological exam: PRESENT: altered - Nonverbal Skin exam: PRESENT: dry, warm. ABSENT: cyanosis Results Laboratory Results: 02/20/17 05:49 02/18/17 14:00 02/20/17 05:49 WBC 8.8 RBC 3.05 L Hgb 8.8 L Hct 26.9 L MCV 88 MCH 28.9 MCHC 32.8 RDW 18.1 H Plt Count 183 02/17/17 16:30 Vazquez Catheter Urine Culture - Final NO GROWTH 2 DAYS Impressions: Guidance Fluoroscopy 02/14/17 00:00 IMPRESSION: SUCCESSFUL PLACEMENT OF A 5 FR DUAL LUMEN 41 CM PICC IN THE left basilic VEIN. Interventional Vascular Procedure 02/14/17 00:00 IMPRESSION: SUCCESSFUL PLACEMENT OF A 5 FR DUAL LUMEN 41 CM PICC IN THE left basilic VEIN. PICC Line Insertion 02/14/17 00:00 IMPRESSION: SUCCESSFUL PLACEMENT OF A 5 FR DUAL LUMEN 41 CM PICC IN THE left basilic VEIN. Chest X-Ray 02/17/17 00:00 IMPRESSION: Left-sided PICC line tip superior vena cava. Near complete clearing of the right upper lobe airspace disease compared to previous studies. Abdomen/Pelvis CT 02/18/17 00:00 IMPRESSION: Vazquez catheter tip and balloon is in the prostatic urethra. There is an air-fluid level in the bladder fundus suggesting that the catheter is patent. 3cm x 3.4 cm fluid collection inside the prostate gland to the right of midline , question small hematoma, abscess, or urethral diverticulum Scrotum Ultrasound 02/18/17 00:00 IMPRESSION: No testicular mass lesions. Small cysts noted in the left testicle. There is slight enlargement of the left testicle measuring 1.8 x 1.4 x 1.1 cm. Complex cystic areas seen in the epididymal head measuring 0.4 x 0.5 x 0.3 cm. Bilateral hydroceles significantly larger on the right than on the left with septations and internal debris. No hypervascularity associated hydroceles. KUB X-Ray 02/19/17 00:00 IMPRESSION: Nonspecific abdomen. Possible ileus. Pelvis Ultrasound 02/19/17 00:00 IMPRESSION: 4.0-cm complex cystic lesion of the prostate persists consistent with CT from 1 day prior. Limitation. Plan Discharge Plan: Transferred to [facility] for further evaluation and management of this cystic lesion of the prostate Time Spent: Greater than 30 Minutes
[2017-02-20] MEDS: SILVER SULFADIAZINE 1% CREAM 25 GM TP SCH (11:50)
[2017-02-20] MEDS: LACTULOSE SYRUP 20 GM/30 ML UDCUP PO SCH ×2 (11:50→17:51)
[2017-02-20] MEDS: LEVETIRACETAM ORAL SOLN 500 MG/5 ML UDCUP PEG SCH (11:50)
[2017-02-20] MEDS: POLYETHYLENE GLYCOL 3350 POWDER 17 GM/1 PACKET PEG SCH (11:50)
[2017-02-20] MEDS: LISINOPRIL 10 MG TABLET PEG SCH (11:51)
[2017-02-20] MEDS: METOPROLOL TARTRATE 25 MG TABLET PEG SCH (11:51)
[2017-02-20] MEDS: ASCORBIC ACID 500 MG TABLET PEG SCH (11:52)
[2017-02-20] MEDS: ZINC SULFATE 220 MG CAPSULE PEG SCH (11:52)
[2017-02-20] MEDS: FAMOTIDINE 20 MG TABLET PEG SCH (11:55)
[2017-02-20] MEDS: NORMAL SALINE 10 ML SDV (SCHEDULED) IV SCH (11:56)
[2017-02-20] MEDS ORDERED: HYDROCODONE/ACETAMINOPHEN 5-325 MG TABLET PEG PRN (12:42)
--- NOTE | 2017-02-20 14:58 | Progress Note ---
Provider Note Provider Note: Appreciate palliative care consult request. Have made at least four attempts over last week to visit with this patient's family but have not been able to talk with them Patient does not respond to me.
[2017-02-20 16:33] VITALS: BP 141/60
[2017-02-20] MEDS: MORPHINE SULFATE 10 MG/ML INJ IV PRN (18:21)
== END 2017-02-20 19:11 | disposition short-term general hospital (02) | DRG 871 ==
LOC: ER 20:39 → EH 22:36 → 3W 02-12 18:08
PROVIDERS: ADMIT Internal Medicine; ATTEND Internal Medicine
PROC: 02HV33Z Insertion of Infusion Device into Superior Vena Cava, Percutaneous Approach (ICD-10-PCS; principal; 2017-02-14)
PROC: B5181ZA Fluoroscopy of Superior Vena Cava using Low Osmolar Contrast, Guidance (ICD-10-PCS; 2017-02-14)
PROC: B548ZZA Ultrasonography of Superior Vena Cava, Guidance (ICD-10-PCS; 2017-02-14)
DX: A41.51 Sepsis due to Escherichia coli [E. coli] (principal); J69.0 Pneumonitis due to inhalation of food and vomit; L89.154 Pressure ulcer of sacral region, stage 4; T83.511A Infection and inflammatory reaction due to indwelling urethral catheter, initial encounter; N39.0 Urinary tract infection, site not specified; Z16.12 Extended spectrum beta lactamase (ESBL) resistance; I69.320 Aphasia following cerebral infarction; E78.5 Hyperlipidemia, unspecified; I10 Essential (primary) hypertension; J44.9 Chronic obstructive pulmonary disease, unspecified; D63.8 Anemia in other chronic diseases classified elsewhere; N43.3 Hydrocele, unspecified; G40.909 Epilepsy, unspecified, not intractable, without status epilepticus; K21.9 Gastro-esophageal reflux disease without esophagitis; E11.9 Type 2 diabetes mellitus without complications; F03.90 Unspecified dementia, unspecified severity, without behavioral disturbance, psychotic disturbance, mood disturbance, and anxiety; F32.9 Major depressive disorder, single episode, unspecified; D64.9 Anemia, unspecified; Z79.899 Other long term (current) drug therapy; Z79.4 Long term (current) use of insulin; Z93.1 Gastrostomy status; Z88.8 Allergy status to other drugs, medicaments and biological substances
CPT/HCPCS: 36415; 36569; 71010; 74000; 74177; 76856; 76870; 76937; 77001; 80048; 80053; 80202; 81001; 82533; 82565; 82803; 82962; 83605; 85025; 85027; 85610; 85730; 87040; 87077; 87086; 87088; 87186; 87493; 93005; 93010; 93976; 99285; J0743; J1642; J1644; J1720; J1815; J1940; J2270; J2543; J3370; J3490; J7030; J7050; J7060; J7620

== ENCOUNTER 2017-03-18 15:56 | Inpatient (IN) | payer OTHER, MEDICARE ==
--- NOTE | 2017-03-18 17:37 | RADIOLOGY REPORT (SQ) ---
EXAM DESCRIPTION: CHEST SINGLE VIEW COMPLETED DATE/TIME: 03/18/2017 5:18 pm REASON FOR STUDY: productive cough, fever COMPARISON: 02/17/2017 EXAM PARAMETERS: NUMBER OF VIEWS: One view. TECHNIQUE: Single frontal radiographic view of the chest acquired. RADIATION DOSE: NA LIMITATIONS: None. FINDINGS: LUNGS AND PLEURA: No opacities, masses or pneumothorax. No pleural effusion. MEDIASTINUM AND HILAR STRUCTURES: There is some mild widening of the superior mediastinum with trache al deviation unchanged from the previous study HEART AND VASCULAR STRUCTURES: Heart normal in size. Normal vasculature. BONES: No acute findings. HARDWARE: None in the chest. OTHER: No other significant finding. IMPRESSION: No significant interval change. No acute findings. Other findings as noted above TECHNICAL DOCUMENTATION: JOB ID: [id number]
[2017-03-18] MEDS ORDERED: NORMAL SALINE 1000 ML 500 ML IV ONE (17:59)
[2017-03-18 18:11] LABS: APPEARANCE,URINE CLEAR; BILIRUBIN,URINE NEGATIVE (NEGATIVE); GLUCOSE, URINE NEGATIVE (NEGATIVE); KETONES,URINE NEGATIVE (NEGATIVE); LEUKOCYTE ESTERASE,URINE SMALL (NEGATIVE); NITRITE,URINE POSITIVE (NEGATIVE); PROTEIN,URINE NEGATIVE (NEGATIVE); URINE SPECIFIC GRAVITY 1.016; UROBILINOGEN,URINE NEGATIVE mg/dL (<2.0)
--- NOTE | 2017-03-18 18:33 | ER Document Report ---
ED Fever - General Mode of Arrival: Medic Information source: Relative TRAVEL OUTSIDE OF THE [place] IN LAST 30 DAYS: No <ANA LUISA ZHENG - Last Filed: 03/18/17 19:30> <MEGHANMAGALYSMANUEL - Last Filed: 03/18/17 22:12> - General Chief Complaint: Fever Stated Complaint: FEVER Time Seen by Provider: 03/18/17 16:19 Notes: Patient is a 76-year-old male with a history of 2 strokes living at [facility] at this time who presents with his daughter today via EMS for vomiting yellow bile prior to arrival. Patient daughter states that because he vomited they stopped his G-tube feedings. She states that whenever he vomits it usually means that he is "becoming septic." She states that he has had sepsis from UTI for pneumonia before. It is documented that he has [facility] with some thick green sputum. It is unclear to me at this time if he did actually vomit up yellow bile or if he just coughed up yellow sputum, daughter was not there to witness. Patient is unable to give me any history due to his chronic state. Temperature got as high as 100.3. (ANA LUISA ZHENG) - Related Data Allergies/Adverse Reactions: divalproex sodium [From Depakote] Allergy (Verified 01/17/17 17:13) oxycodone [Oxycodone] Adverse Reaction (Intermediate, Verified 01/12/17 19:24) agitation simvastatin [From Zocor] Adverse Reaction (Unknown, Verified 01/12/17 19:24) dysarthria Past Medical History - General Information source: Relative - Social History Smoking Status: Never Smoker Chew tobacco use (# tins/day): No Frequency of alcohol use: None Drug Abuse: None Family History: Other - Unable to obtain given mental status - Past Medical History Cardiac Medical History: Reports: Hx Hypercholesterolemia, Hx Hypertension Pulmonary Medical History: Reports: Hx COPD, Hx Pneumonia Neurological Medical History: Reports: Hx Cerebrovascular Accident - CVA in 2013 , History of subarachnoid hemorrhage in 2016, Hx Seizures Endocrine Medical History: Reports: Hx Diabetes Mellitus Type 2 Renal/ Medical History: Reports: Hx Benign Prostatic Hyperplasia GI Medical History: Reports: Hx Gastroesophageal Reflux Disease - PEG tube post CVA Musculoskeltal Medical History: Reports Hx Muscle Weakness Psychiatric Medical History: Reports: Hx Dementia, Hx Depression Past Surgical History: Reports: Hx Abdominal Surgery - Feeding gastrostomy tube , Other - PEG tube placed - Immunizations Hx Diphtheria, Pertussis, Tetanus Vaccination: Yes Hx Pneumococcal Vaccination: 05/25/14 <ANA LUISA ZHENG - Last Filed: 03/18/17 19:30> Review of Systems - Review of Systems Constitutional: See HPI EENT: No symptoms reported Cardiovascular: No symptoms reported Respiratory: See HPI Gastrointestinal: See HPI Genitourinary: No symptoms reported Male Genitourinary: No symptoms reported Musculoskeletal: No symptoms reported Skin: No symptoms reported Hematologic/Lymphatic: No symptoms reported Neurological/Psychological: No symptoms reported <ANA LUISA ZHENG - Last Filed: 03/18/17 19:30> Physical Exam <ANA LUISA ZHENG - Last Filed: 03/18/17 19:30> <MANUEL CRAVEN - Last Filed: 03/18/17 22:12> - Vital signs Vitals: Resp 25 H 03/18/17 16:51 - Notes Notes: PHYSICAL EXAMINATION: GENERAL: chronically ill, contracted on right side, but in no acute distress. HEAD: Atraumatic, normocephalic. EYES: Pupils equal round and reactive to light, extraocular movements intact, sclera anicteric, conjunctiva are normal. NECK: Normal range of motion, supple without lymphadenopathy LUNGS: decreased lung volume, CTAB and equal. No wheezes rales or rhonchi. HEART: Regular rate and rhythm without murmurs ABDOMEN: Soft, no tenderness. No guarding, no rebound BACK: no vertebral tenderness, normal ROM GI/: no CVA tenderness EXTREMITIES: Normal range of motion, no pitting edema. No cyanosis. NEUROLOGICAL: Cranial nerves grossly intact. Normal sensory/motor exams. PSYCH: Normal mood, normal affect. SKIN: Warm, Dry, normal turgor, no rashes or lesions noted (ANA LUISA ZHENG) Course - Laboratory Result Diagrams: 03/18/17 18:53 03/18/17 18:53 <ANA LUISA ZHENG - Last Filed: 03/18/17 19:30> - Laboratory Result Diagrams: 03/18/17 18:53 03/18/17 18:53 <MANUEL CRAVEN - Last Filed: 03/18/17 22:12> - Re-evaluation Re-evalutation: 03/18/17 19:30 labwork pending. care handed over to Manuel Craven PA-C at this time. (ANA LUISA ZHENG) 03/18/17 Lab workup shows leukocytosis at 19.2 with elevation of neutrophils. Patient has borderline tachycardia at 106 on my evaluation. Patient in a chronic debilitated state and can only groan in response. Daughter is at bedside, she expressed wishes for patient to remain FULL CODE STATUS. Review of previous urinary culture shows ESBL with multiple resistances, patient was started on ertapenem as a result. Chest x-ray not showing pneumonia, patient does have a chronic sacral decubitus ulcer. Daughter states that they were transferred to [place] because of a potential abscess "on his prostate", states the urologist said they did not recommend any surgical intervention and only medical treatment. Discussed with Dr. Whelan, internal medicine, patient will be admitted to the IMCU. Daughter states agreement. (MANUEL CRAVEN) - Vital Signs Vital signs: Temp Pulse Resp BP Pulse Ox 24 H 156/70 H 97 03/18/17 20:01 03/18/17 20:01 03/18/17 20:00 - Laboratory Laboratory results interpreted by me: 03/18/17 03/18/17 03/18/17 17:55 18:53 18:53 WBC 19.2 H Hgb 13.1 L RDW 19.2 H Seg Neuts % (Manual) 87 H Lymphocytes % (Manual) 5 L Abs Neuts (Manual) 16.7 H VBG pH VBG HCO3 BUN 60 H Glucose 135 H Lactic Acid Calcium 10.5 H Alkaline Phosphatase 178 H Creatine Kinase 39 L Total Protein 9.6 H Urine Nitrite POSITIVE H Ur Leukocyte Esterase SMALL H Urine Ascorbic Acid 40 H 03/18/17 03/18/17 18:53 20:17 WBC Hgb RDW Seg Neuts % (Manual) Lymphocytes % (Manual) Abs Neuts (Manual) VBG pH 7.44 H VBG HCO3 34.7 H BUN Glucose Lactic Acid 3.5 H Calcium Alkaline Phosphatase Creatine Kinase Total Protein Urine Nitrite Ur Leukocyte Esterase Urine Ascorbic Acid Discharge <ANA LUISA ZHENG - Last Filed: 03/18/17 19:30> - Discharge Admitting Provider: Hospitalist Unit Admitted: [facility] <MANUEL CRAVEN - Last Filed: 03/18/17 22:12> - Discharge Clinical Impression: Fever Qualifiers: Fever type: unspecified Qualified Code(s): R50.9 - Fever, unspecified Leukocytosis Qualifiers: Leukocytosis type: unspecified Qualified Code(s): D72.829 - Elevated white blood cell count, unspecified Urinary tract infection Qualifiers: Urinary tract infection type: site unspecified Hematuria presence: without hematuria Qualified Code(s): N39.0 - Urinary tract infection, site not specified Referrals: MARGARITA ZARATE MD [Primary Care Provider] - Follow up as needed
[2017-03-18 19:14] LABS: HEMATOCRIT 40.7 % (37.9-51.0); HEMOGLOBIN 13.1 g/dL (13.5-17.0); HGB HCT DIFFERENCE -1.4; MEAN CORPUSCULAR HEMOGLOBIN 28.6 pg (27.0-33.4); MEAN CORPUSCULAR HGB CONC 32.3 g/dL (32.0-36.0); MEAN CORPUSCULAR VOLUME 88 fl (80-97); RED CELL DISTRIBUTION WIDTH 19.2 % (11.5-14.0); WHITE BLOOD COUNT 19.2 10^3/uL (4.0-10.5)
[2017-03-18 19:28] LABS: ALANINE AMINOTRANSFERASE 46 U/L (21-72); ALBUMIN 4.4 g/dL (3.5-5.0); ALKALINE PHOSPHATASE 178 U/L (38-126); ANION GAP 18 (5-19); ASPARTATE AMINO TRANSFERASE 30 U/L (17-59); BILIRUBIN,DIRECT 0.4 mg/dL (0.0-0.4); BILIRUBIN,TOTAL 0.6 mg/dL (0.2-1.3); BLOOD UREA NITROGEN 60 mg/dL (7-20); CALCIUM 10.5 mg/dL (8.4-10.2); CARBON DIOXIDE 27 mmol/L (22-30); CHLORIDE 99 mmol/L (98-107); CREATINE KINASE 39 U/L (55-170); CREATININE RESULT 0.71 mg/dL (0.52-1.25); GLUCOSE 135 mg/dL (75-110); POTASSIUM 4.6 mmol/L (3.6-5.0); TOTAL PROTEIN 9.6 g/dL (6.3-8.2)
[2017-03-18 19:39] LABS: CREATINE KINASE MB 0.49 ng/mL (<4.55)
[2017-03-18 19:40] LABS: BASOPHILS % (MANUAL) 0 % (0-2); EOSINOPHILS % (MANUAL) 2 % (0-6); LYMPHOCYTES % (MANUAL) 5 % (13-45); TOTAL CELLS COUNTED 100; TROPONIN I < 0.012 ng/mL
[2017-03-18 19:41] LABS: POLYCHROMASIA SLIGHT; TOXIC GRANULATION SLIGHT
[2017-03-18 19:42] LABS: ANISOCYTOSIS 2+; POIKILOCYTOSIS 1+
[2017-03-18] MEDS ORDERED: ERTAPENEM SODIUM INJ 1 GM VIAL IV ONE (20:26)
[2017-03-18 20:32] LABS: VENOUS BLOOD BASE EXCESS 8.8 mmol/L; VENOUS BLOOD HCO3 34.7 mmol/L (20-32); VENOUS BLOOD PCO2 52.5 mmHg (35-63); VENOUS BLOOD PH 7.44 (7.30-7.42)
[2017-03-18 22:48] LABS: ADD ON TESTING BLD IN LAB ACKNOWLEDGE
[2017-03-18 23:03] LABS: MAGNESIUM 2.3 mg/dL (1.6-2.3)
[2017-03-19] MEDS ORDERED: INSULIN LISPRO 100 UNIT/ML 3 ML VIAL SUBCUT PRN (00:11)
[2017-03-19] MEDS ORDERED: DEXTROSE 40% GEL 15 GM TUBE PO PRN ×2 (00:11)
[2017-03-19] MEDS ORDERED: DEXTROSE 50%-WATER 25 GM/50 ML DISP.SYRIN IV PRN ×2 (00:11)
[2017-03-19] MEDS ORDERED: GLUCAGON,HUMAN RECOMB 1 MG INJ IM PRN (00:11)
[2017-03-19] MEDS ORDERED: IPRATROPIUM/ALBUTEROL 0.5-2.5 MG/3 ML AMPUL NEB PRN (00:14)
[2017-03-19] MEDS ORDERED: 1/2 NORMAL SALINE 1,000 ML IV PRN (00:17)
[2017-03-19] MEDS ORDERED: ACETAMINOPHEN SOLN 325 MG/10.15 ML UDCUP PEG PRN (00:21)
[2017-03-19] MEDS ORDERED: PHARMACY COMMUNICATION ORDER MC SCH (00:30)
--- NOTE | 2017-03-19 00:33 | PDOC H&P ---
History of Present Illness Admission Date/PCP: 03/18/17 22:12 MARGARITA ZARATE MD Patient complains of: Low-grade fever, nausea and vomiting, cough productive of green sputum History of Present Illness: THAD JOY is a 76 year old -[place] male, status post prior stroke 2, with more recent stroke consisting of intracerebral hemorrhage, basically aphasic and bedbound since then, who presents to the emergency room from [facility] for evaluation of above complaints, along with somewhat decreased level of consciousness starting at 3:30 PM today. Patient has been discussed with emergency room nurse practitioner who evaluated the patient. Patient is completely aphasic and does not interact in a meaningful way with his surroundings and is able to provide no history whatsoever in terms of acute or chronic events, review of systems, personal habits, family history, etc. daughter Tavia, who is also his surrogate healthcare decision maker, is present at his side and is helpful and informative. Old inpatient records are reviewed. Patient reportedly had bilious vomiting prior to arrival, along with cough productive of green sputum and temperature at [facility] as high as 100.3. Daughter states this is his typical presentation when he has either urinary tract infection or pneumonia. Has chronic indwelling Vazquez. Receives all enteral intake through his PEG tube. N.p.o. No further information available this point in time. Hospitalized on our service 02/12 through 02/20/2017, and was transferred to [facility] for suspected prostatic abscess. According to daughter, he was discharged on the fourth, with no interventional procedure necessary, simply treatment with antibiotics. Old records have been requested. Transfer summary reviewed. Admitted to our service December 14 of last year for suspected pneumonia along with abnormal urinalysis. History and physical reviewed. Dictation via voice recognition software. Laboratory results are listed in [employer] and are reviewed. X-ray summary results are listed below, with full report(s) reviewed. . Social history/personal habits: See history and present illness. . No tobacco use since 1994. No alcohol or illicit drug use. Allergies/adverse reactions are listed in [employer] and are reviewed. Home medications initially autopopulated into [facility] may not accurately reflect patient's true medications, dosages, and/or frequencies. histology technician to reconcile medications. Unfortunately, patient not able to provide any information related to medications/dosages/frequencies. REVIEW OF SYSTEMS: See history and present illness. No further information available this point in time. PHYSICAL EXAMINATION: 5 feet 7 inches tall. Weight listed as 159.6 kg; I think this should be pounds , and order has been written to please reweigh patient. Pulse 101 and regular. 97% saturation on room air. Respirations are 22 and unlabored. Blood pressure 154/65. Temperature 99.7. Slightly overweight otherwise well-nourished well-developed elderly - [place] male who appears a number of years younger than his stated age. Asleep. Does wedger and gluer finger of examiner slightly with right hand when requested. Does not open eyes. Completely nonverbal, other than an occasional slight groan. Daughter present at his side. Skin is warm and dry. No grossly obvious evidence of rash in areas of skin examined. No subcutaneous nodules palpated. Clean dry and intact dressing covering a reported chronic sacral decubitus; dressing approximately 3 x 4 cm; dressing left in place. Surrounding skin does not appear to be involved with secondary infection. ENT: Hearing cannot be evaluated adequately due to his current status.. Eyes: No scleral icterus. Pupils equal and reactive to light at 4 mm. [place] conjunctivae. No raccoon eyes. Squints slightly when eyelids are gently . Neck is nontender to palpation. Midline trachea. No palpable thyroid nodule mass enlargement or tenderness. Lymphatic: No palpable cervical or clavicular nodes. Neck and lymphatic exams limited by patient body habitus. Psychiatric: Cannot be adequately evaluated due to his current status. Lungs: Auscultation reveals clear and equal breath sounds bilaterally. No use of accessory respiratory muscles. Cardiovascular: Heart regular rate and rhythm, without gallop murmur or rub. No carotid or abdominal aortic bruits. No ankle or pedal edema. Faintly palpable dorsalis pedis pulses. Abdomen:soft slightly distended nontender with positive bowel sounds. Unable to adequately evaluate abdomen for masses or organomegaly due to distention. PEG tube site clean and dry without evidence of infection. Extremities: Feet are warm and dry. No calf tenderness to compression. No grossly obvious visual evidence of calf swelling. Gentle manipulation of lower extremities fails to reveal any obvious evidence of injury or instability to knees or hips, though with some slight likely chronic stiffness at knees and hips. Neurologic: Absent Babinski. Light touch cannot be adequately evaluated due to his current status.. See above comments concerning right hand wedger and gluer. no rigidity. no nystagmus. Past Medical History Past Medical History: Information per daughter along with current and old records; patient not able to provide any information. Cardiac Medical History: Reports: Myocardial Infarction, Hyperlipidema, Hypertension Pulmonary Medical History: Reports: Chronic Obstructive Pulmonary Disease (COPD) , Pneumonia EENT Medical History: Reports: Other - PEG tube since prior stroke; completely n.p.o. Neurological Medical History: Reports: Hemorrhagic CVA, Ischemic CVA, Seizures Endocrine Medical History: Reports: Diabetes Mellitus Type 1 Denies: Hyperthyroidism, Hypothyroidism Renal/ Medical History: Reports: Other - Occasional urinary tract infection, felt due to chronic indwelling Vazquez GI Medical History: Reports: Gastroesophageal Reflux Disease - PEG tube post CVA Denies: Cirrhosis, Hepatitis Psychiatric Medical History: Reports: Dementia, Depression Hematology: Reports: Anemia Infectious Medical History: Denies: Hepatitis B, Hepatitis C Past Surgical History Past Surgical History: Information per daughter along with current and old records; patient not able to provide any information. Past Surgical History: Reports: Orthopedic Surgery - Right knee surgery. Titanium jelani, left femur after accident., Other - PEG tube placed Social History Information Source: Relative - Daughter, Emergency Med Personnel, [facility] Records Lives with: Correction Smoking Status: Never Smoker Frequency of Alcohol Use: None Hx Recreational Drug Use: No Drugs: None Hx Prescription Drug Abuse: No - Advance Directive Resuscitation Status: Full Code Surrogate healthcare decision maker:: Daughter Tanya Lagunas Family History Family History: Other - Unable to obtain given mental status Parental Family History Reviewed: Yes - Mother of Alzheimer's. Uncertain cause of father's . Children Family History Reviewed: Yes - Daughter type II diabetic and breast cancer survivor. Sibling(s) Family History Reviewed.: Yes - Sister suffered a stroke. Medication/Allergy Home Medications: Acetaminophen [Tylenol] 650 mg PEG Q8HP PRN 03/19/17 Ascorbic Acid [Vitamin C 500 mg Tablet] 500 mg PEG DAILY 03/19/17 Cranberry Extract [Cranberry 200 mg Capsule] 400 mg PEG DAILY 03/19/17 Famotidine [Pepcid 20 mg Tablet] 20 mg PEG Q12 03/19/17 Guaifenesin [Siltussin SA] 15 ml PEG Q6 03/19/17 Insulin Glargine,Hum.rec.anlog [Lantus Insulin 100 Unit/1 ml 10 ml] 24 unit SUBCUT QHS 03/19/17 Ipratropium/Albuterol Sulfate [Duoneb 3 ml Ampul] 3 ml NEB RTQ6 03/19/17 Ipratropium/Albuterol Sulfate [Duoneb 3 ml Ampul] 3 ml NEB RTQ6HP PRN 03/19/17 Isosorb Dinit/Hydralazine HCl [Bidil 20-37.5 mg Tablet] 1 tab PEG Q8 03/19/17 Lactulose [Cephulac Syrup 20 gm/30 ml Udcup] 20 gm PEG BID 03/19/17 Levetiracetam [Keppra] 750 mg PEG Q12 03/19/17 Lisinopril [Prinivil 10 mg Tablet] 20 mg PEG DAILY 03/19/17 Metoprolol Tartrate [Lopressor 25 mg Tablet] 12.5 mg PEG Q12 03/19/17 Nitroglycerin [Nitrostat] 0.4 mg SL Q5MP PRN 03/19/17 Polyethylene Glycol 3350 [Miralax Powder 17 gm/Packet] 1 packet PEG DAILY Zinc Sulfate [Zinc-220 Capsule] 220 mg PEG DAILY 03/19/17 Allergies/Adverse Reactions: divalproex sodium [From Depakote] Allergy (Verified 01/17/17 17:13) oxycodone [Oxycodone] Adverse Reaction (Intermediate, Verified 01/12/17 19:24) agitation simvastatin [From Zocor] Adverse Reaction (Unknown, Verified 01/12/17 19:24) dysarthria Physical Exam Vital Signs: Temp Pulse Resp BP Pulse Ox 99.7 F 22 H 154/65 H 97 03/18/17 23:01 03/18/17 23:01 03/18/17 23:01 03/18/17 23:01 Intake & Output 03/17/17 03/18/17 03/19/17 00:59 00:59 00:59 Weight 159.6 kg Results Laboratory Results: 03/18/17 23:12 Lactic Acid 1.6 Impressions: Chest X-Ray 03/18/17 17:02 IMPRESSION: No significant interval change. No acute findings. Other findings as noted above Assessment & Plan - Diagnosis (1) Acute encephalopathy Is this a current diagnosis for this admission?: YesPlan: Likely due to underlying infection, but given history of 2 prior strokes, will obtain CT scan of brain without contrast. (2) UTI (urinary tract infection) due to urinary indwelling Vazquez catheter Qualifiers: Indwelling urinary catheter type: indwelling urethral catheter Encounter type: initial encounter Qualified Code(s): T83.511A - Infection and inflammatory reaction due to indwelling urethral catheter, initial encounter; N39.0 - Urinary tract infection, site not specified Is this a current diagnosis for this admission?: YesPlan: Recent urine culture results noted. Will resume ertapenem. Knee high SCDs for DVT prophylaxis, along with subcutaneous Lovenox. Impression and plans were discussed with daughter, who concurs. Time spent in evaluation and management of patient: 60 minutes. (3) HTN (hypertension) Qualifiers: Hypertension type: essential hypertension Qualified Code(s): I10 - Essential (primary) hypertension Is this a current diagnosis for this admission?: YesPlan: Resume home medications as appropriate once these have been determined and reviewed. (4) Diabetes mellitus type 1 Qualifiers: Diabetes mellitus complication status: without complication Qualified Code(s): E10.9 - Type 1 diabetes mellitus without complications Is this a current diagnosis for this admission?: YesPlan: Accu-Cheks with appropriate sliding scale coverage. Resume home medications as appropriate once these have been determined and reviewed. Patient is chronically n.p.o. With nausea and vomiting, will check abdominal series, along with hold tube feedings for the present time. (5) G tube feedings Is this a current diagnosis for this admission?: Yes (6) Sacral decubitus ulcer Qualifiers: Pressure ulcer stage: unspecified pressure ulcer stage Qualified Code(s): L89.159 - Pressure ulcer of sacral region, unspecified stage Is this a current diagnosis for this admission?: YesPlan: Innovative mattress. Turn every 2 hours. Dietary consult. Surgery consult. (7) Seizure disorder Is this a current diagnosis for this admission?: YesPlan: Seizure precautions. Resume home medications as appropriate once these have been determined and reviewed. - Inpatient Certification Based on my medical assessment, after consideration of the patient's comorbidities, presenting symptoms, or acuity I expect that the services needed warrant INPATIENT care.: Yes I certify that my determination is in accordance with my understanding of Medicare's requirements for reasonable and necessary INPATIENT services [42 CFR 412.3e].: Yes Medical Necessity: Significant Comorbidiites Make Outpatient Treatment Too Risky , Need Close Monitoring Due to Risk of Patient Decompensation, Need for IV Antibiotics, Risk of Complication if Not Cared For in Hospital Post Hospital Care: D/C or Transfer Summary
[2017-03-19 00:50] LABS: VENOUS BLOOD BASE EXCESS 8.4 mmol/L; VENOUS BLOOD HCO3 34.3 mmol/L (20-32); VENOUS BLOOD PCO2 53.3 mmHg (35-63); VENOUS BLOOD PH 7.43 (7.30-7.42)
[2017-03-19 04:57] LABS: HEMATOCRIT 35.5 % (37.9-51.0); HEMOGLOBIN 11.6 g/dL (13.5-17.0); HGB HCT DIFFERENCE -0.7; MEAN CORPUSCULAR HEMOGLOBIN 28.6 pg (27.0-33.4); MEAN CORPUSCULAR HGB CONC 32.7 g/dL (32.0-36.0); MEAN CORPUSCULAR VOLUME 87 fl (80-97); RED BLOOD COUNT 4.07 10^6/uL (4.35-5.55); RED CELL DISTRIBUTION WIDTH 19.4 % (11.5-14.0); WHITE BLOOD COUNT 20.4 10^3/uL (4.0-10.5)
[2017-03-19 05:00] LABS: VENOUS BLOOD BASE EXCESS 7.4 mmol/L; VENOUS BLOOD HCO3 32.5 mmol/L (20-32); VENOUS BLOOD PH 7.45 (7.30-7.42)
--- NOTE | 2017-03-19 05:03 | RADIOLOGY REPORT (SQ) ---
EXAM DESCRIPTION: CT HEAD WITHOUT COMPLETED DATE/TIME: 03/19/2017 2:37 am REASON FOR STUDY: AMS; PRIOR CEREBRAL HEM COMPARISON: 06/19/2016. TECHNIQUE: Axial images acquired through the brain without intravenous contrast. Images reviewed wi th bone, brain and subdural windows. Images stored on PACS. All CT scanners at this facility use dose modulation, iterative reconstruction, and/or weight based d osing when appropriate to reduce radiation dose to as low as reasonably achievable (ALARA). [facility]: Dose Right [facility]: CareDose [facility]: Dose Right [facility]: Teradose 4D [facility]: abcdexperts RADIATION DOSE: Up-to-date CT equipment and radiation dose reduction techniques were employed. CTDIv ol: 55.3 mGy. DLP: 996 mGy-cm. mGy. LIMITATIONS: Positioning. FINDINGS: VENTRICLES: Normal size and contour. CEREBRUM: Large left posterior parietal, posterior left MCA territory encephalomalacia/infarct. Mild cerebral volume loss. Moderate ventricular enlargement, chronic. CEREBELLUM: No masses. No hemorrhage. No alteration of density. No evidence for acute infarction. EXTRAAXIAL SPACES: No fluid collections. No masses. ORBITS AND GLOBE: No intra- or extraconal masses. Normal contour of globe without masses. CALVARIUM: No fracture. PARANASAL SINUSES: No fluid or mucosal thickening. SOFT TISSUES: No mass or hematoma. OTHER: No other significant finding. IMPRESSION: No significant interval change. Large left posterior MCA territory infarct/encephalomal acia. Moderate chronic ventricular enlargement/normal pressure hydrocephalus. TECHNICAL DOCUMENTATION: JOB ID: [id number] Quality ID # [id number]: Final reports with documentation of one or more dose reduction techniques (e.g., Au tomated exposure control, adjustment of the mA and/or kV according to patient size, use of iterative reconstruction technique) 2010 [employer]- All Rights Reserved
--- NOTE | 2017-03-19 05:06 | RADIOLOGY REPORT (SQ) ---
EXAM DESCRIPTION: ABDOMEN 2 VIEWS COMPLETED DATE/TIME: 03/19/2017 2:43 am REASON FOR STUDY: KUB; LT LAT DECUB(LT SIDE DOWN); N/V COMPARISON: 02/19/2017. NUMBER OF VIEWS: Two views. TECHNIQUE: Supine and erect/decubitus radiographic images of the abdomen acquired. LIMITATIONS: None. FINDINGS: FREE AIR: None. No abnormal gas collections. LUNG BASES: Clear. BOWEL GAS PATTERN: Nonobstructive pattern. No dilated loops or air fluid levels. CALCIFICATIONS: No suspicious calcifications. SOFT TISSUES: No gross mass or suggestion of organomegaly. HARDWARE: Drainage catheter(s) of the lower abdomen/ pelvis. BONES: Moderate bony demineralization. OTHER: No other significant finding. IMPRESSION: NO RADIOGRAPHIC EVIDENCE FOR ACUTE ABDOMINAL DISEASE. TECHNICAL DOCUMENTATION: JOB ID: [id number] [employer]- All Rights Reserved
[2017-03-19 05:20] LABS: BAND NEUTROPHILS % (MANUAL) 1 % (3-5); BASOPHILS % (MANUAL) 0 % (0-2); EOSINOPHILS % (MANUAL) 1 % (0-6); LYMPHOCYTES % (MANUAL) 10 % (13-45); TOTAL CELLS COUNTED 100
[2017-03-19 05:21] LABS: ANISOCYTOSIS 2+; ROULEAUX 1+; TOXIC VACUOLATION PRESENT
[2017-03-19 05:24] LABS: ANION GAP 11 (5-19); BLOOD UREA NITROGEN 61 mg/dL (7-20); CALCIUM 9.5 mg/dL (8.4-10.2); CARBON DIOXIDE 29 mmol/L (22-30); CHLORIDE 101 mmol/L (98-107); CREATININE RESULT 0.81 mg/dL (0.52-1.25); GLUCOSE 141 mg/dL (75-110); POTASSIUM 4.1 mmol/L (3.6-5.0); SODIUM 141.2 mmol/L (137-145)
[2017-03-19] MEDS ORDERED: GUAIFENESIN SYRP 200 MG/10 ML UDC PEG PRN (06:41)
[2017-03-19] MEDS ORDERED: ERTAPENEM SODIUM INJ 1 GM VIAL IV SCH (10:00)
[2017-03-19] MEDS ORDERED: LISINOPRIL 10 MG TABLET PEG SCH (10:00)
[2017-03-19] MEDS ORDERED: LEVETIRACETAM 500 MG PEG SCH (10:00)
[2017-03-19] MEDS ORDERED: POLYETHYLENE GLYCOL 3350 POWDER 17 GM/1 PACKET PEG SCH (10:00)
[2017-03-19] MEDS ORDERED: AMLODIPINE BESYLATE 5 MG TABLET PEG SCH (10:00)
[2017-03-19] MEDS ORDERED: HYDRALAZINE HCL INJ/PF 20 MG/1 ML SDV IV PRN (10:31)
--- NOTE | 2017-03-19 10:32 | PDOC PROGRESS REPORT ---
Subjective Progress Note for:: 03/19/17 Subjective:: Patient stable per nursing staff. I cannot obtain history from patient secondary to remote stroke with expressive aphasia. Physical Exam Vital Signs: Temp Pulse Resp BP Pulse Ox 98.6 F 80 18 102/63 100 03/19/17 08:02 03/19/17 08:02 03/19/17 08:02 03/19/17 08:02 03/19/17 08:02 Intake & Output 03/18/17 03/19/17 03/20/17 06:59 06:59 06:59 Intake Total 477 Balance 477 Weight 81.2 kg GENERAL: No acute distress HEENT: Conjunctiva clear, nonicteric, moist mucous membranes, no JVD, midline trachea RESPIRATORY: Clear to auscultation bilaterally, no wheezes, no rhonchi CARDIAC: Regular rate and rhythm, no murmurs/gallops/rubs ABDOMEN: Soft, nondistended, nontender, positive bowel sounds, no rebound, no guarding. Gastrostomy tube in place EXTREMETIES: No edema, cyanosis, clubbing NEUROLOGIC: Unarousable, right hemiparesis with contractures SKIN: No rash, wounds : Vazquez catheter Results Laboratory Results: 03/19/17 04:38 03/19/17 04:38 03/19/17 03/19/17 03/19/17 00:41 04:38 04:38 WBC 20.4 H RBC 4.07 L Hgb 11.6 L Hct 35.5 L MCV 87 MCH 28.6 MCHC 32.7 RDW 19.4 H Plt Count 127 L Seg Neutrophils % Not Reportable Lymphocytes % Not Reportable Monocytes % Not Reportable Eosinophils % Not Reportable Basophils % Not Reportable Absolute Neutrophils Not Reportable Absolute Lymphocytes Not Reportable Absolute Monocytes Not Reportable Absolute Eosinophils Not Reportable Absolute Basophils Not Reportable VBG pH 7.43 H VBG pCO2 53.3 VBG HCO3 34.3 H VBG Base Excess 8.4 Sodium 141.2 Potassium 4.1 Chloride 101 Carbon Dioxide 29 Anion Gap 11 BUN 61 H Creatinine 0.81 Est GFR ( Amer) > 60 Est GFR (Non-Af Amer) > 60 Glucose 141 H Calcium 9.5 03/19/17 04:38 WBC RBC Hgb Hct MCV MCH MCHC RDW Plt Count Seg Neutrophils % Lymphocytes % Monocytes % Eosinophils % Basophils % Absolute Neutrophils Absolute Lymphocytes Absolute Monocytes Absolute Eosinophils Absolute Basophils VBG pH 7.45 H VBG pCO2 48.0 VBG HCO3 32.5 H VBG Base Excess 7.4 Sodium Potassium Chloride Carbon Dioxide Anion Gap BUN Creatinine Est GFR ( Amer) Est GFR (Non-Af Amer) Glucose Calcium Impressions: Chest X-Ray 03/18/17 17:02 IMPRESSION: No significant interval change. No acute findings. Other findings as noted above Abdomen X-Ray 03/19/17 00:00 IMPRESSION: NO RADIOGRAPHIC EVIDENCE FOR ACUTE ABDOMINAL DISEASE. Head CT 03/19/17 00:00 IMPRESSION: No significant interval change. Large left posterior MCA territory infarct/encephalomalacia. Moderate chronic ventricular enlargement/ normal pressure hydrocephalus. Assessment & Plan - Diagnosis (1) SIRS (systemic inflammatory response syndrome) Is this a current diagnosis for this admission?: YesPlan: Secondary to urinary tract infection. (2) Urinary tract infection Qualifiers: Urinary tract infection type: site unspecified Hematuria presence: without hematuria Qualified Code(s): N39.0 - Urinary tract infection, site not specified Is this a current diagnosis for this admission?: YesPlan: Complicated by chronic indwelling Vazquez catheter. Recent admission and transfer to [facility] for prostate abscess. No intervention required at that time. Continue IV ertapenem pending further culture and sensitivity. Patient does have history of ESBL E. coli. (3) Dysphagia Is this a current diagnosis for this admission?: YesPlan: Status post gastrostomy tube. Resume tube feeding. (4) Acute encephalopathy Is this a current diagnosis for this admission?: YesPlan: Secondary to remote stroke with acute infection. (5) Diabetes mellitus type 1 Qualifiers: Diabetes mellitus complication status: without complication Qualified Code(s): E10.9 - Type 1 diabetes mellitus without complications Is this a current diagnosis for this admission?: YesPlan: Continue Lantus 24 units subcu nightly. Sliding scale insulin. (6) HTN (hypertension) Qualifiers: Hypertension type: essential hypertension Qualified Code(s): I10 - Essential (primary) hypertension Is this a current diagnosis for this admission?: YesPlan: Continue lisinopril and metoprolol. As needed IV hydralazine. (7) History of cerebral hemorrhage Is this a current diagnosis for this admission?: YesPlan: Patient has expressive aphasia, dysphagia, right hemiparesis and is chronically bedbound as a result. He normally resides at [facility] (8) Sacral decubitus ulcer Qualifiers: Pressure ulcer stage: unspecified pressure ulcer stage Qualified Code(s): L89.159 - Pressure ulcer of sacral region, unspecified stage Is this a current diagnosis for this admission?: YesPlan: Continue local wound care. (9) Full code status Is this a current diagnosis for this admission?: Yes - Time Time Spent with patient: 35 or more minutes Anticipated discharge: SNF
[2017-03-19] MEDS: ERTAPENEM SODIUM 1 GM in NORMAL SALINE 50 ML IV SCH (11:23)
[2017-03-19] MEDS: LEVETIRACETAM ORAL SOLN 500 MG/5 ML UDCUP PEG SCH ×2 (11:26→22:57)
[2017-03-19] MEDS: ENOXAPARIN SODIUM INJ 40 MG/0.4 ML DISP.SYRIN SUBCUT SCH (11:27)
[2017-03-19] MEDS: METOPROLOL TARTRATE 25 MG TABLET PEG SCH ×2 (12:09→23:00)
--- NOTE | 2017-03-19 13:46 | PDOC CONSULTATION ---
Consultation Consult Date: 03/19/17 Consult reason:: sepsis, possible sacral decubitus infection History of Present Illness Admission Date/PCP: 03/18/17 23:55 MARGARITA ZARATE MD History of Present Illness: THAD JOY is a 76 year old -F[place] male, status post prior stroke 2, aphasic and bedbound since then, who presents to the emergency room from [facility] for evaluationof decreased level of consciousness. Patient is completely aphasic unable to answer questions. During the evaluation , the patient was found to be febrile, most likely attributed to either urinary tract infection or pneumonia. Also, he has chronic indwelling Vazquez and a PEG tube. Our service has been consulted to evaluate the presence of an old sacral decubitus as the source of the patient fever and elevated WBC (> 20k) Past Medical History Cardiac Medical History: Reports: Myocardial Infarction, Hyperlipidema, Hypertension Pulmonary Medical History: Reports: Chronic Obstructive Pulmonary Disease (COPD) , Pneumonia EENT Medical History: Reports: Other - PEG tube since prior stroke; completely n.p.o. Neurological Medical History: Reports: Hemorrhagic CVA, Ischemic CVA, Seizures Endocrine Medical History: Reports: Diabetes Mellitus Type 1, Diabetes Mellitus Type 2 Denies: Hyperthyroidism, Hypothyroidism Renal/ Medical History: Reports: Other - Occasional urinary tract infection, felt due to chronic indwelling Vazquez GI Medical History: Reports: Gastroesophageal Reflux Disease - PEG tube post CVA Denies: Cirrhosis, Hepatitis Psychiatric Medical History: Reports: Dementia, Depression Hematology: Reports: Anemia, Other - PEG tube since prior stroke; completely n.p.o. Infectious Medical History: Denies: Hepatitis B, Hepatitis C Past Surgical History Past Surgical History: Reports: Orthopedic Surgery - Right knee surgery. Titanium jelani, left femur after accident., Other - PEG tube placed Social History Lives with: [facility] Smoking Status: Never Smoker Frequency of Alcohol Use: None Hx Recreational Drug Use: No Drugs: None Hx Prescription Drug Abuse: No - Advance Directive Resuscitation Status: Full Code Family History Family History: Other - Unable to obtain given mental status Parental Family History Reviewed: No - unknown Children Family History Reviewed: Unknown - unknown Sibling(s) Family History Reviewed.: Unknown - unknown Medication/Allergy Home Medications: Acetaminophen [Tylenol] 650 mg PEG Q8HP PRN 03/19/17 Ascorbic Acid [Vitamin C 500 mg Tablet] 500 mg PEG DAILY 03/19/17 Cranberry Extract [Cranberry 200 mg Capsule] 400 mg PEG DAILY 03/19/17 Famotidine [Pepcid 20 mg Tablet] 20 mg PEG Q12 03/19/17 Guaifenesin [Siltussin SA] 15 ml PEG Q6 03/19/17 Insulin Glargine,Hum.rec.anlog [Lantus Insulin 100 Unit/1 ml 10 ml] 24 unit SUBCUT QHS 03/19/17 Ipratropium/Albuterol Sulfate [Duoneb 3 ml Ampul] 3 ml NEB RTQ6 03/19/17 Ipratropium/Albuterol Sulfate [Duoneb 3 ml Ampul] 3 ml NEB RTQ6HP PRN 03/19/17 Isosorb Dinit/Hydralazine HCl [Bidil 20-37.5 mg Tablet] 1 tab PEG Q8 03/19/17 Lactulose [Cephulac Syrup 20 gm/30 ml Udcup] 20 gm PEG BID 03/19/17 Levetiracetam [Keppra] 750 mg PEG Q12 03/19/17 Lisinopril [Prinivil 10 mg Tablet] 20 mg PEG DAILY 03/19/17 Metoprolol Tartrate [Lopressor 25 mg Tablet] 12.5 mg PEG Q12 03/19/17 Nitroglycerin [Nitrostat] 0.4 mg SL Q5MP PRN 03/19/17 Polyethylene Glycol 3350 [Miralax Powder 17 gm/Packet] 1 packet PEG DAILY Zinc Sulfate [Zinc-220 Capsule] 220 mg PEG DAILY 03/19/17 Allergies/Adverse Reactions: divalproex sodium [From Depakote] Allergy (Verified 01/17/17 17:13) oxycodone [Oxycodone] Adverse Reaction (Intermediate, Verified 01/12/17 19:24) agitation simvastatin [From Zocor] Adverse Reaction (Unknown, Verified 01/12/17 19:24) dysarthria Physical Exam Vital Signs: Temp Pulse Resp BP Pulse Ox 97.7 F 70 18 135/41 H 99 03/19/17 12:03 03/19/17 12:03 03/19/17 12:03 03/19/17 12:03 03/19/17 12:03 Intake & Output 0703/19/17 03/20/17 06:59 06:59 06:59 Intake Total 477 Output Total 100 Balance 477 -100 Weight 81.2 kg General appearance: PRESENT: no acute distress Respiratory exam: PRESENT: clear to auscultation yokasta Cardiovascular exam: PRESENT: RRR GI/Abdominal exam: PRESENT: soft, other - PEG tube present Rectal exam: PRESENT: other - large amount of fecal matter soilage Skin exam: PRESENT: other - old, scarrred sacral decubitus, clean, no drainage, no celllulitis or skin necrosis approxiately 1.5 cm in diameter, soiled with feces Results Laboratory Results: 03/19/17 04:38 03/19/17 04:38 03/19/17 03/19/17 03/19/17 00:41 04:38 04:38 WBC 20.4 H RBC 4.07 L Hgb 11.6 L Hct 35.5 L MCV 87 MCH 28.6 MCHC 32.7 RDW 19.4 H Plt Count 127 L Seg Neutrophils % Not Reportable Lymphocytes % Not Reportable Monocytes % Not Reportable Eosinophils % Not Reportable Basophils % Not Reportable Absolute Neutrophils Not Reportable Absolute Lymphocytes Not Reportable Absolute Monocytes Not Reportable Absolute Eosinophils Not Reportable Absolute Basophils Not Reportable VBG pH 7.43 H VBG pCO2 53.3 VBG HCO3 34.3 H VBG Base Excess 8.4 Sodium 141.2 Potassium 4.1 Chloride 101 Carbon Dioxide 29 Anion Gap 11 BUN 61 H Creatinine 0.81 Est GFR ( Amer) > 60 Est GFR (Non-Af Amer) > 60 Glucose 141 H Calcium 9.5 03/19/17 04:38 WBC RBC Hgb Hct MCV MCH MCHC RDW Plt Count Seg Neutrophils % Lymphocytes % Monocytes % Eosinophils % Basophils % Absolute Neutrophils Absolute Lymphocytes Absolute Monocytes Absolute Eosinophils Absolute Basophils VBG pH 7.45 H VBG pCO2 48.0 VBG HCO3 32.5 H VBG Base Excess 7.4 Sodium Potassium Chloride Carbon Dioxide Anion Gap BUN Creatinine Est GFR ( Amer) Est GFR (Non-Af Amer) Glucose Calcium Impressions: Chest X-Ray 03/18/17 17:02 IMPRESSION: No significant interval change. No acute findings. Other findings as noted above Abdomen X-Ray 03/19/17 00:00 IMPRESSION: NO RADIOGRAPHIC EVIDENCE FOR ACUTE ABDOMINAL DISEASE. Head CT 03/19/17 00:00 IMPRESSION: No significant interval change. Large left posterior MCA territory infarct/encephalomalacia. Moderate chronic ventricular enlargement/ normal pressure hydrocephalus. Assessment & Plan - Diagnosis (2) Sacral decubitus ulcer Qualifiers: Pressure ulcer stage: unspecified pressure ulcer stage Qualified Code(s): L89.159 - Pressure ulcer of sacral region, unspecified stage Is this a current diagnosis for this admission?: Yes - Plan Summary Plan Summary: A/ patient with aphasia and loss of upper cerebral function as per previous strokes compounded by dementia old, scarred sacral decubitus without features of infection, necrosis, or progression fecal incontinence with perineum and sacrum soiled in stools which can cause worsening of the sacral decubitus as well as UTI P/ no surgical intervention needed to address the sacral decubitus as it is stable and has no need of surgical debridment Fecal soilage: this could be addressed with fecal stream diversion (loop colostomy) if family and PCP/Hospitalist service agree However, such a procedure will not increase the patient expectancy of life or improve his mental status. I will discuss this with Dr. Mcleod as he will take over the service today.
[2017-03-19] MEDS ORDERED: ISOSORBIDE DINITRATE 20 MG TABLET PEG SCH (14:00)
[2017-03-19] MEDS: ISOSORB DINIT/HYDRALAZINE HCL 20-37.5 MG TABLET PEG SCH ×2 (14:24→23:00)
--- NOTE | 2017-03-19 15:54 | Physician Advisory Note ---
Physician Advisor ProgressNote .: Pursuant to the plan for [facility], I have reviewed the medical record for this patient. Physician Advisor Statement: Please document: 1. stage of sacral ulcer 2. Whenever there is SIRS due to an infection, we need to document whether or not we believe pt was clinically septic at time of admiission, - & findings by which dx of sepsis is made, if present. - This pt had leukocytosis, tachycardia, tachypnea, fever 100.8 before EMS arrived, low total GCS of 12 (?how much was acute findings vs chronic?), and did develop thrombocytopenia (mild, the day after adm). He did not have low BP , low P/F ratio, or elevated Cr or Bilirubin. He did have lactate level of 3.5. So he met SIRS criteria, but not necessarily Sepsis-3 criteria, at time of arrival. Attending clinical suspicion & reasons will be important to document if attending truly believes he was septic. - Did he have sluggish capillary refill? - Has he been tx'd by sepsis protocol? Thanks! CK
--- NOTE | 2017-03-19 16:49 | Progress Note ---
Provider Note Provider Note: ADDENDUM: Patient hypotensive today after resuming blood pressure medications. He was given 1 L normal saline bolus. Lisinopril and Bidil placed on hold.
[2017-03-19] MEDS: LACTULOSE SYRUP 20 GM/30 ML UDCUP PEG SCH (18:29)
[2017-03-19] MEDS ORDERED: INSULIN GLARGINE,HUM.REC.ANLOG 1,000 UNIT/10 ML UNIT SUBCUT SCH (22:00)
[2017-03-19] MEDS ORDERED: METOPROLOL TARTRATE 25 MG TABLET PEG SCH (22:00)
[2017-03-19] MEDS ORDERED: INSULIN GLARGINE,HUM.REC.ANLOG 300 UNIT/3 ML INSULN.PEN SUBCUT SCH (22:00)
[2017-03-19] MEDS: FAMOTIDINE 20 MG TABLET PEG SCH (22:58)
[2017-03-20] MEDS: INSULIN GLARGINE,HUM.REC.ANLOG 300 UNIT/3 ML INSULN.PEN SUBCUT SCH ×2 (00:16→23:53)
[2017-03-20] MEDS: ISOSORB DINIT/HYDRALAZINE HCL 20-37.5 MG TABLET PEG SCH ×3 (06:32→21:52)
[2017-03-20 06:40] LABS: ABSOLUTE EOSINOPHILS # (AUTO) 0.5 10^3/uL (0.0-0.6); ABSOLUTE LYMPHOCYTES (AUTO) 1.5 10^3/uL (0.5-4.7); ABSOLUTE MONOCYTES (AUTO) 0.8 10^3/uL (0.1-1.4); ABSOLUTE NEUT (AUTO) 5.4 10^3/uL (1.7-8.2); BASOPHILS % (AUTO) 0.5 % (0-2); EOSINOPHILS % (AUTO) 6.5 % (0-6); HEMATOCRIT 32.8 % (37.9-51.0); HGB HCT DIFFERENCE 0.2; LYMPHOCYTES % (AUTO) 17.9 % (13-45); MEAN CORPUSCULAR HEMOGLOBIN 29.3 pg (27.0-33.4); MEAN CORPUSCULAR HGB CONC 33.4 g/dL (32.0-36.0); MEAN CORPUSCULAR VOLUME 88 fl (80-97); MONOCYTES % (AUTO) 9.3 % (3-13); RED BLOOD COUNT 3.74 10^6/uL (4.35-5.55); RED CELL DISTRIBUTION WIDTH 18.7 % (11.5-14.0); SEGMENTED NEUTROPHILS % (AUTO) 65.8 % (42-78); WHITE BLOOD COUNT 8.1 10^3/uL (4.0-10.5)
[2017-03-20 06:54] LABS: ANION GAP 12 (5-19); BLOOD UREA NITROGEN 57 mg/dL (7-20); CALCIUM 9.5 mg/dL (8.4-10.2); CARBON DIOXIDE 27 mmol/L (22-30); CHLORIDE 104 mmol/L (98-107); CREATININE RESULT 0.71 mg/dL (0.52-1.25); GLUCOSE 130 mg/dL (75-110); POTASSIUM 3.8 mmol/L (3.6-5.0); SODIUM 142.9 mmol/L (137-145)
[2017-03-20] MEDS: ERTAPENEM SODIUM 1 GM in NORMAL SALINE 50 ML IV SCH (09:59)
[2017-03-20] MEDS ORDERED: LISINOPRIL 10 MG TABLET PEG SCH (10:00)
[2017-03-20] MEDS: ZINC SULFATE 220 MG CAPSULE PEG SCH (10:12)
[2017-03-20] MEDS: METOPROLOL TARTRATE 25 MG TABLET PEG SCH ×2 (10:12→21:52)
[2017-03-20] MEDS: FAMOTIDINE 20 MG TABLET PEG SCH ×2 (10:13→21:52)
[2017-03-20] MEDS: ENOXAPARIN SODIUM INJ 40 MG/0.4 ML DISP.SYRIN SUBCUT SCH (10:14)
[2017-03-20] MEDS: LEVETIRACETAM ORAL SOLN 500 MG/5 ML UDCUP PEG SCH ×2 (10:14→21:51)
[2017-03-20] MEDS: LACTULOSE SYRUP 20 GM/30 ML UDCUP PEG SCH ×2 (10:14→17:09)
[2017-03-20] MEDS: POLYETHYLENE GLYCOL 3350 POWDER 17 GM/1 PACKET PEG SCH (10:14)
--- NOTE | 2017-03-20 11:17 | PDOC PROGRESS REPORT ---
Subjective Progress Note for:: 03/20/17 Subjective:: No apparent distress Physical Exam Vital Signs: Temp Pulse Resp BP Pulse Ox 98.3 F 84 18 123/55 L 100 03/20/17 08:21 03/20/17 08:21 03/20/17 08:21 03/20/17 08:21 03/20/17 08:21 Intake & Output 03/19/17 03/20/17 03/21/17 06:59 06:59 06:59 Intake Total 477 659 Output Total 650 Balance 477 9 Weight 81.2 kg 84.6 kg Skin exam: PRESENT: other - Small pocket at the sacrum with no surrounding erythema narrow with no purulent drainage. Appears very clean. Results Laboratory Results: 03/20/17 06:32 03/20/17 06:32 03/20/17 03/20/17 06:32 06:32 WBC 8.1 RBC 3.74 L Hgb 11.0 L Hct 32.8 L MCV 88 MCH 29.3 MCHC 33.4 RDW 18.7 H Plt Count 127 L Seg Neutrophils % 65.8 Lymphocytes % 17.9 Monocytes % 9.3 Eosinophils % 6.5 H Basophils % 0.5 Absolute Neutrophils 5.4 Absolute Lymphocytes 1.5 Absolute Monocytes 0.8 Absolute Eosinophils 0.5 Absolute Basophils 0.0 Sodium 142.9 Potassium 3.8 Chloride 104 Carbon Dioxide 27 Anion Gap 12 BUN 57 H Creatinine 0.71 Est GFR ( Amer) > 60 Est GFR (Non-Af Amer) > 60 Glucose 130 H Calcium 9.5 03/19/17 01:10 Nasophary (Mrsa Only) MRSA Surveillance Culture - Final MRSA RECOVERED Impressions: Chest X-Ray 03/18/17 17:02 IMPRESSION: No significant interval change. No acute findings. Other findings as noted above Abdomen X-Ray 03/19/17 00:00 IMPRESSION: NO RADIOGRAPHIC EVIDENCE FOR ACUTE ABDOMINAL DISEASE. Head CT 03/19/17 00:00 IMPRESSION: No significant interval change. Large left posterior MCA territory infarct/encephalomalacia. Moderate chronic ventricular enlargement/ normal pressure hydrocephalus. Assessment & Plan - Diagnosis (1) Sacral decubitus ulcer, stage IV Is this a current diagnosis for this admission?: YesPlan: Chronic sacral decubitus ulcer appears to be closing in well. Continue local wound care as outpatient. I do not see any role for surgical intervention. Will sign off. Follow-up with wound care clinic.
--- NOTE | 2017-03-20 13:18 | PDOC PROGRESS REPORT ---
Subjective Progress Note for:: 03/20/17 Subjective:: Patient stable per nursing staff. Nursing reports that patient did speak to her son today, but he will not respond verbally to me at the time of my visit. Physical Exam Vital Signs: Temp Pulse Resp BP Pulse Ox 97.9 F 71 18 128/74 H 97 03/20/17 12:03 03/20/17 12:03 03/20/17 12:03 03/20/17 12:03 03/20/17 12:03 Intake & Output 03/19/17 03/20/17 03/21/17 06:59 06:59 06:59 Intake Total 477 659 257 Output Total 650 400 Balance 477 9 -143 Weight 81.2 kg 84.6 kg GENERAL: No acute distress HEENT: Conjunctiva clear, nonicteric, moist mucous membranes, no JVD, midline trachea RESPIRATORY: Clear to auscultation bilaterally, no wheezes, no rhonchi CARDIAC: Regular rate and rhythm, no murmurs/gallops/rubs ABDOMEN: Soft, nondistended, nontender, positive bowel sounds, no rebound, no guarding. Gastrostomy tube in place EXTREMETIES: No edema, cyanosis, clubbing NEUROLOGIC: Unarousable, right hemiparesis with contractures SKIN: No rash, wounds : Vazquez catheter Results Laboratory Results: 03/20/17 06:32 03/20/17 06:32 03/20/17 03/20/17 06:32 06:32 WBC 8.1 RBC 3.74 L Hgb 11.0 L Hct 32.8 L MCV 88 MCH 29.3 MCHC 33.4 RDW 18.7 H Plt Count 127 L Seg Neutrophils % 65.8 Lymphocytes % 17.9 Monocytes % 9.3 Eosinophils % 6.5 H Basophils % 0.5 Absolute Neutrophils 5.4 Absolute Lymphocytes 1.5 Absolute Monocytes 0.8 Absolute Eosinophils 0.5 Absolute Basophils 0.0 Sodium 142.9 Potassium 3.8 Chloride 104 Carbon Dioxide 27 Anion Gap 12 BUN 57 H Creatinine 0.71 Est GFR ( Amer) > 60 Est GFR (Non-Af Amer) > 60 Glucose 130 H Calcium 9.5 03/19/17 01:10 Nasophary ([facility] Only) MRSA Surveillance Culture - Final MRSA RECOVERED Impressions: Chest X-Ray 03/18/17 17:02 IMPRESSION: No significant interval change. No acute findings. Other findings as noted above Abdomen X-Ray 03/19/17 00:00 IMPRESSION: NO RADIOGRAPHIC EVIDENCE FOR ACUTE ABDOMINAL DISEASE. Head CT 03/19/17 00:00 IMPRESSION: No significant interval change. Large left posterior MCA territory infarct/encephalomalacia. Moderate chronic ventricular enlargement/ normal pressure hydrocephalus. Assessment & Plan - Diagnosis (1) SIRS (systemic inflammatory response syndrome) Is this a current diagnosis for this admission?: YesPlan: Secondary to urinary tract infection. (2) Urinary tract infection Qualifiers: Urinary tract infection type: site unspecified Hematuria presence: without hematuria Qualified Code(s): N39.0 - Urinary tract infection, site not specified Is this a current diagnosis for this admission?: YesPlan: Complicated by chronic indwelling Vazquez catheter. 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 No intervention required at that time. Continue IV ertapenem pending further culture and sensitivity. Patient does have history of ESBL E. coli. (3) Dysphagia Is this a current diagnosis for this admission?: YesPlan: Status post gastrostomy tube. Continue tube feeding. (4) Acute encephalopathy Is this a current diagnosis for this admission?: YesPlan: Secondary to remote stroke with acute infection. Probably back to baseline now. (5) Diabetes mellitus type 1 Qualifiers: Diabetes mellitus complication status: without complication Qualified Code(s): E10.9 - Type 1 diabetes mellitus without complications Is this a current diagnosis for this admission?: YesPlan: Continue Lantus 24 units subcu nightly. Sliding scale insulin. (6) HTN (hypertension) Qualifiers: Hypertension type: essential hypertension Qualified Code(s): I10 - Essential (primary) hypertension Is this a current diagnosis for this admission?: YesPlan: Continue metoprolol. Lisinopril and BiDil placed on hold secondary to hypotension. As needed IV hydralazine. (7) History of cerebral hemorrhage Is this a current diagnosis for this admission?: YesPlan: Patient has expressive aphasia, dysphagia, right hemiparesis and is chronically bedbound as a result. He normally resides at [facility], however patient's daughter has expressed desire to change nursing home facilities possibly to the [facility]. (8) Sacral decubitus ulcer Qualifiers: Pressure ulcer stage: unspecified pressure ulcer stage Qualified Code(s): L89.159 - Pressure ulcer of sacral region, unspecified stage Is this a current diagnosis for this admission?: YesPlan: Continue local wound care. (9) Full code status Is this a current diagnosis for this admission?: Yes - Time Time Spent with patient: 25-34 minutes Anticipated discharge: SNF Within: when bed available
[2017-03-21] MEDS: ISOSORB DINIT/HYDRALAZINE HCL 20-37.5 MG TABLET PEG SCH (05:16)
[2017-03-21 06:15] LABS: ABSOLUTE EOSINOPHILS # (AUTO) 0.6 10^3/uL (0.0-0.6); ABSOLUTE LYMPHOCYTES (AUTO) 1.5 10^3/uL (0.5-4.7); ABSOLUTE MONOCYTES (AUTO) 0.6 10^3/uL (0.1-1.4); ABSOLUTE NEUT (AUTO) 2.8 10^3/uL (1.7-8.2); BASOPHILS % (AUTO) 0.8 % (0-2); EOSINOPHILS % (AUTO) 11.1 % (0-6); HEMATOCRIT 32.5 % (37.9-51.0); HEMOGLOBIN 10.9 g/dL (13.5-17.0); HGB HCT DIFFERENCE 0.2; LYMPHOCYTES % (AUTO) 27.1 % (13-45); MEAN CORPUSCULAR HEMOGLOBIN 29.2 pg (27.0-33.4); MEAN CORPUSCULAR HGB CONC 33.5 g/dL (32.0-36.0); MEAN CORPUSCULAR VOLUME 87 fl (80-97); MONOCYTES % (AUTO) 10.1 % (3-13); RED BLOOD COUNT 3.73 10^6/uL (4.35-5.55); SEGMENTED NEUTROPHILS % (AUTO) 50.9 % (42-78); WHITE BLOOD COUNT 5.5 10^3/uL (4.0-10.5)
[2017-03-21 06:33] LABS: ANION GAP 10 (5-19); BLOOD UREA NITROGEN 46 mg/dL (7-20); CALCIUM 9.6 mg/dL (8.4-10.2); CARBON DIOXIDE 29 mmol/L (22-30); CHLORIDE 104 mmol/L (98-107); CREATININE RESULT 0.62 mg/dL (0.52-1.25); GLUCOSE 139 mg/dL (75-110); POTASSIUM 4.3 mmol/L (3.6-5.0); SODIUM 142.5 mmol/L (137-145)
--- NOTE | 2017-03-21 09:38 | PDOC TRANSFER SUMMARY ---
General - Admit/Disc Date/PCP Admission Date/Primary Care Provider: 03/18/17 23:55 MARGARITA ZARATE MD Discharge Date: 03/21/17 - Discharge Diagnosis (1) SIRS (systemic inflammatory response syndrome) Is this a current diagnosis for this admission?: Yes (2) Urinary tract infection Is this a current diagnosis for this admission?: Yes (3) Dysphagia Is this a current diagnosis for this admission?: Yes (4) Acute encephalopathy Is this a current diagnosis for this admission?: Yes (5) Diabetes mellitus type 1 Is this a current diagnosis for this admission?: Yes (6) HTN (hypertension) Is this a current diagnosis for this admission?: Yes (7) History of cerebral hemorrhage Is this a current diagnosis for this admission?: Yes (8) Sacral decubitus ulcer Is this a current diagnosis for this admission?: Yes (9) Full code status Is this a current diagnosis for this admission?: Yes - Additional Information Resuscitation Status: Full Code Discharge Diet: Tube Feeding (Comments) - Glucerna 1.2 @ 65ml/hr Discharge Activity: Bedrest Home Medications: Acetaminophen [Tylenol] 650 mg PEG Q8HP PRN 03/19/17 Ascorbic Acid [Vitamin C 500 mg Tablet] 500 mg PEG DAILY 03/19/17 Cranberry Extract [Cranberry 200 mg Capsule] 400 mg PEG DAILY 03/19/17 Famotidine [Pepcid 20 mg Tablet] 20 mg PEG Q12 03/19/17 Guaifenesin [Siltussin SA] 15 ml PEG Q6 03/19/17 Insulin Glargine,Hum.rec.anlog [Lantus Insulin 100 Unit/1 ml 10 ml] 24 unit SUBCUT QHS 03/19/17 Ipratropium/Albuterol Sulfate [Duoneb 3 ml Ampul] 3 ml NEB RTQ6HP PRN 03/19/17 Isosorb Dinit/Hydralazine HCl [Bidil 20-37.5 mg Tablet] 1 tab PEG Q8 03/19/17 Lactulose [Cephulac Syrup 20 gm/30 ml Udcup] 20 gm PEG BID 03/19/17 Levetiracetam [Keppra] 750 mg PEG Q12 03/19/17 Metoprolol Tartrate [Lopressor 25 mg Tablet] 12.5 mg PEG Q12 03/19/17 Nitroglycerin [Nitrostat] 0.4 mg SL Q5MP PRN 03/19/17 Polyethylene Glycol 3350 [Miralax Powder 17 gm/Packet] 1 packet PEG DAILY Zinc Sulfate [Zinc-220 Capsule] 220 mg PEG DAILY 03/19/17 Insulin Aspart [Novolog Insulin 100 Unit/1 ml 10 ml] 0 unit SUBCUT .SLD SCALE # 10 ml 03/21/17 Levofloxacin [Levaquin 750 mg Tablet] 750 mg PEG DAILY 21 Days 03/21/17 Sulfamethoxazole/Trimethoprim [Septra Susp 800-160 mg/20 ml] 20 ml PO BID 21 Days 03/21/17 History of Present Illness Admission Date/PCP: 03/18/17 23:55 MARGARITA ZARATE MD History of Present Illness: THAD JOY is a 76 year old -Honduran male, status post prior stroke 2, with more recent stroke consisting of intracerebral hemorrhage, basically aphasic and bedbound since then, who presents to the emergency room from [facility] for evaluation of above complaints, along with somewhat decreased level of consciousness starting at 3:30 PM today. Patient has been discussed with emergency room nurse practitioner who evaluated the patient. Patient is completely aphasic and does not interact in a meaningful way with his surroundings and is able to provide no history whatsoever in terms of acute or chronic events, review of systems, personal habits, family history, etc. daughter Tavia, who is also his surrogate healthcare decision maker, is present at his side and is helpful and informative. Old inpatient records are reviewed. Patient reportedly had bilious vomiting prior to arrival, along with cough productive of green sputum and temperature at [facility] as high as 100.3. Daughter states this is his typical presentation when he has either urinary tract infection or pneumonia. Hospital Course Hospital Course: Patient was admitted for recurrent urinary tract infection complicated by chronic indwelling Vazquez catheter. 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 He was seen by urology there and they did not recommend any type of intervention. He was started on ertapenem empirically. Urine culture grew MRSA and Pseudomonas. Patient was transitioned to Bactrim and Levaquin per his gastrostomy tube based on susceptibility report. His white blood count normalized and he was afebrile at time of discharge. Patient is chronically bedbound from prior stroke. He also has dysphagia and is status post gastrostomy tube. He is on tube feedings mentioned above. He has been residing at [facility] prior to admission and will return there upon discharge. Patient has stage IV sacral wound. His wound is healing very well and at this point there is only about a 1 cm open area over the sacrum with no surrounding signs of infection. Patient is to continue Allevyn dressing changes daily. He will need every 2 hour position changes at [facility]. Patient had staph epidermidis grow in 1 bottle of 1 set of blood cultures. This likely represents skin contamination. With regard to patient's hypertension his lisinopril was discontinued secondary to low blood pressures. I would like to keep him off the lisinopril until he completes his course of Bactrim. His blood pressure is stable at time of discharge on metoprolol and BiDil. Physical Exam Vital Signs: Temp Pulse Resp BP Pulse Ox 97.9 F 77 14 133/57 H 96 03/21/17 07:57 03/21/17 08:40 03/21/17 08:40 03/21/17 07:57 03/21/17 08:40 Intake & Output 03/20/17 03/21/17 03/22/17 06:59 06:59 06:59 Intake Total 659 1911 Output Total 650 1250 Balance 9 661 Weight 84.6 kg 85.1 kg Results Laboratory Results: 03/21/17 05:36 03/21/17 05:36 03/21/17 03/21/17 05:36 05:36 WBC 5.5 RBC 3.73 L Hgb 10.9 L Hct 32.5 L MCV 87 MCH 29.2 MCHC 33.5 RDW 19.0 H Plt Count 139 L Seg Neutrophils % 50.9 Lymphocytes % 27.1 Monocytes % 10.1 Eosinophils % 11.1 H Basophils % 0.8 Absolute Neutrophils 2.8 Absolute Lymphocytes 1.5 Absolute Monocytes 0.6 Absolute Eosinophils 0.6 Absolute Basophils 0.0 Sodium 142.5 Potassium 4.3 Chloride 104 Carbon Dioxide 29 Anion Gap 10 BUN 46 H Creatinine 0.62 Est GFR ( Amer) > 60 Est GFR (Non-Af Amer) > 60 Glucose 139 H Calcium 9.6 03/19/17 01:10 Nasophary (Mrsa Only) MRSA Surveillance Culture - Final MRSA RECOVERED Impressions: Chest X-Ray 03/18/17 17:02 IMPRESSION: No significant interval change. No acute findings. Other findings as noted above Abdomen X-Ray 03/19/17 00:00 IMPRESSION: NO RADIOGRAPHIC EVIDENCE FOR ACUTE ABDOMINAL DISEASE. Head CT 03/19/17 00:00 IMPRESSION: No significant interval change. Large left posterior MCA territory infarct/encephalomalacia. Moderate chronic ventricular enlargement/ normal pressure hydrocephalus. Transfer Plan - Time Spent with Patient Time spent with patient: Greater than 30 Minutes Qualifiers PATEINT BEING DISCHARGED WITH ANY OF THE FOLLOWING DIAGNOSIS?: No
[2017-03-21] MEDS ORDERED: LEVOFLOXACIN 750 MG TABLET PEG SCH (10:00)
[2017-03-21] MEDS ORDERED: SULFAMETHOXAZOLE/TRIMETHOPRIM 800-160 MG/20 ML UDCUP PO SCH (10:00)
[2017-03-21] MEDS: LEVETIRACETAM ORAL SOLN 500 MG/5 ML UDCUP PEG SCH (10:41)
[2017-03-21] MEDS: FAMOTIDINE 20 MG TABLET PEG SCH (10:41)
[2017-03-21] MEDS: METOPROLOL TARTRATE 25 MG TABLET PEG SCH (10:42)
[2017-03-21] MEDS: ZINC SULFATE 220 MG CAPSULE PEG SCH (10:42)
[2017-03-21] MEDS: LACTULOSE SYRUP 20 GM/30 ML UDCUP PEG SCH (10:43)
[2017-03-21] MEDS: POLYETHYLENE GLYCOL 3350 POWDER 17 GM/1 PACKET PEG SCH (10:43)
[2017-03-21] MEDS: ENOXAPARIN SODIUM INJ 40 MG/0.4 ML DISP.SYRIN SUBCUT SCH (10:43)
[2017-03-21 12:36] VITALS: BP 163/74
== END 2017-03-21 12:51 | DRG 700 ==
LOC: ER 15:56 → EH 22:12 → UNDOADMIN 22:12 → EH 23:55 → 3S 03-19 00:10 → EH 03-19 00:10
PROVIDERS: ADMIT Family Medicine; ATTEND Family Medicine
PROC: 3E0F73Z Introduction of Anti-inflammatory into Respiratory Tract, Via Natural or Artificial Opening (ICD-10-PCS; principal; 2017-03-19)
DX: T83.511A Infection and inflammatory reaction due to indwelling urethral catheter, initial encounter (principal); N39.0 Urinary tract infection, site not specified; B96.5 Pseudomonas (aeruginosa) (mallei) (pseudomallei) as the cause of diseases classified elsewhere; B95.62 Methicillin resistant Staphylococcus aureus infection as the cause of diseases classified elsewhere; Y73.1 Therapeutic (nonsurgical) and rehabilitative gastroenterology and urology devices associated with adverse incidents; E10.9 Type 1 diabetes mellitus without complications; I10 Essential (primary) hypertension; L89.159 Pressure ulcer of sacral region, unspecified stage; R13.10 Dysphagia, unspecified; J44.9 Chronic obstructive pulmonary disease, unspecified; K21.9 Gastro-esophageal reflux disease without esophagitis; F03.90 Unspecified dementia, unspecified severity, without behavioral disturbance, psychotic disturbance, mood disturbance, and anxiety; F32.9 Major depressive disorder, single episode, unspecified; D64.9 Anemia, unspecified; N40.0 Benign prostatic hyperplasia without lower urinary tract symptoms; E66.3 Overweight; Z68.29 Body mass index [BMI] 29.0-29.9, adult; I25.2 Old myocardial infarction; I69.191 Dysphagia following nontraumatic intracerebral hemorrhage; I69.120 Aphasia following nontraumatic intracerebral hemorrhage; Z79.4 Long term (current) use of insulin; Z74.01 Bed confinement status; Z93.1 Gastrostomy status; Z79.899 Other long term (current) drug therapy; Z88.6 Allergy status to analgesic agent; Z83.3 Family history of diabetes mellitus; Z80.3 Family history of malignant neoplasm of breast; Z82.3 Family history of stroke
CPT/HCPCS: 36415; 70450; 71010; 74020; 80048; 80053; 80177; 81001; 82550; 82553; 82803; 82962; 83605; 83735; 84443; 84484; 85025; 87040; 87077; 87086; 87088; 87186; 96365; 99285; A6266; J1335; J1815; J3490; J7030

== ENCOUNTER 2017-04-08 09:01 | Emergency (ER) | payer OTHER, MEDICARE ==
--- NOTE | 2017-04-08 09:30 | ER Document Report ---
ED General - General Mode of Arrival: Medic Information source: Outside Facility Records Cannot obtain history due to: Other - current clinical condition TRAVEL OUTSIDE OF THE [place] IN LAST 30 DAYS: No - HPI Onset: Yesterday Associated symptoms: Other - see above <LUIZ ORTEGA - Last Filed: 04/08/17 09:27> <OFELIA HAWKINS - Last Filed: 04/08/17 11:02> - General Stated Complaint: FEVER Time Seen by Provider: 04/08/17 09:21 Notes: Patient is a 76 year old male who presents to the ED from the care home with concerns for aspiration. Patient vomited last night and and they thought they heard rales in his lungs. Patient did have a slight temp. Unable to obtain history due to patients current clinical condition, patient is currently sleeping. (LUIZ ORTEGA) - Related Data Allergies/Adverse Reactions: divalproex sodium [From Depakote] Allergy (Verified 01/17/17 17:13) oxycodone [Oxycodone] Adverse Reaction (Intermediate, Verified 01/12/17 19:24) agitation simvastatin [From Zocor] Adverse Reaction (Unknown, Verified 01/12/17 19:24) dysarthria Past Medical History - General Information source: Outside Facility Records - Social History Smoking Status: Unknown if Ever Smoked Family History: Other - Unable to obtain given mental status - Past Medical History Cardiac Medical History: Reports: Hx Heart Attack, Hx Hypercholesterolemia, Hx Hypertension Pulmonary Medical History: Reports: Hx COPD, Hx Pneumonia Neurological Medical History: Reports: Hx Cerebrovascular Accident - CVA in 2013 , History of subarachnoid hemorrhage in 2016, Hx Seizures Endocrine Medical History: Reports: Hx Diabetes Mellitus Type 1, Hx Diabetes Mellitus Type 2. Denies: Hx Hyperthyroidism, Hx Hypothyroidism Renal/ Medical History: Reports: Hx Benign Prostatic Hyperplasia GI Medical History: Reports: Hx Gastroesophageal Reflux Disease - PEG tube post CVA. Denies: Hx Cirrhosis, Hx Hepatitis Musculoskeltal Medical History: Reports Hx Muscle Weakness Psychiatric Medical History: Reports: Hx Dementia, Hx Depression Infectious Medical History: Denies: Hx Hepatitis Past Surgical History: Reports: Hx Abdominal Surgery - Feeding gastrostomy tube , Hx Orthopedic Surgery - Right knee surgery. Titanium jelani, left femur after accident., Other - PEG tube placed - Immunizations Hx Diphtheria, Pertussis, Tetanus Vaccination: Yes Hx Pneumococcal Vaccination: 05/25/14 <LUIZ ORTEGA - Last Filed: 04/08/17 09:27> Review of Systems - Review of Systems -: Yes ROS unobtainable due to patient's medical condition <LUIZ ORTEGA - Last Filed: 04/08/17 09:27> Physical Exam - General General appearance: Other - non verbal, doesnt open eyes - HEENT Head: Normocephalic, Atraumatic - Respiratory Respiratory status: No respiratory distress Breath sounds: Normal - Cardiovascular Rhythm: Regular Heart sounds: Normal auscultation Murmur: No - Abdominal Inspection: Normal Distension: No distension Bowel sounds: Normal Tenderness: Nontender - Back Back: Normal - Extremities General upper extremity: Other - inflexion with grasping on some kind of rolled towel with hands General lower extremity: Other - hips and knees a little flexed, no calf tenderness or swelling - Neurological Cognition: Other - Non verbal, doesnt open eyes - Psychological Associated symptoms: Other - non verbal, doesnt open eyes - Skin Skin Temperature: Warm Skin Moisture: Dry Skin Color: Normal <LUIZ ORTEGA - Last Filed: 04/08/17 09:27> Course <LUIZ ORTEGA - Last Filed: 04/08/17 09:27> - Laboratory Result Diagrams: 04/08/17 09:50 04/08/17 09:50 <OFELIA HAWKINS - Last Filed: 04/08/17 11:02> - Re-evaluation Re-evalutation: 04/08/17 10:43 Chest x-ray is unremarkable. CBC shows a normal white blood cell count without shift. Chemistries are unremarkable. Patient's lungs are clear. At this point there is nothing on the exam, chest x-ray or lab work to suggest aspiration occurred. (OFELIA HAWKINS) - Vital Signs Vital signs: Temp Pulse Resp BP Pulse Ox 98.9 F 102 H 18 130/61 H 97 04/08/17 09:10 04/08/17 09:10 04/08/17 09:10 04/08/17 09:10 04/08/17 09:10 - Laboratory Laboratory results interpreted by me: 04/08/17 04/08/17 04/08/17 09:50 09:50 10:25 RBC 4.16 L Hgb 12.0 L Hct 35.8 L RDW 18.4 H Sodium 136.7 L BUN 29 H Glucose 143 H Ur Leukocyte Esterase SMALL H Urine Ascorbic Acid 40 H Discharge <LUIZ ORTEGA - Last Filed: 04/08/17 09:27> <OFELIA HAWKINS - Last Filed: 04/08/17 11:02> - Discharge Clinical Impression: Normal exam Condition: Stable Disposition: HOME, SELF-CARE Additional Instructions: Examination today in the emergency room shows the lungs to be clear on auscultation. The chest x-ray does not show any acute process. The blood work does not suggest an infectious process. At this point there are no findings to suggest the patient aspirated when he vomited during the night. Follow-up with your medical doctor if any new problems. RETURN TO THE EMERGENCY ROOM IF ANY NEW OR WORSENING SYMPTOMS. Scribe Attestation: 04/08/17 11:02 I personally performed the services described in the documentation, reviewed and edited the documentation which was dictated to the scribe in my presence, and it accurately records my words and actions. (OFELIA HAWKINS) Scribe Documentation - Scribe Written by Michael:: dalila Hung, 04/08/2017, 0930 acting as scribe for :: Tito <LUIZ ORTEGA - Last Filed: 04/08/17 09:27>
[2017-04-08 10:03] LABS: ABSOLUTE BASOPHILS # (AUTO) 0.1 10^3/uL (0.0-0.2); ABSOLUTE EOSINOPHILS # (AUTO) 0.3 10^3/uL (0.0-0.6); ABSOLUTE LYMPHOCYTES (AUTO) 1.3 10^3/uL (0.5-4.7); ABSOLUTE MONOCYTES (AUTO) 1.2 10^3/uL (0.1-1.4); ABSOLUTE NEUT (AUTO) 6.7 10^3/uL (1.7-8.2); BASOPHILS % (AUTO) 0.7 % (0-2); EOSINOPHILS % (AUTO) 2.8 % (0-6); HEMATOCRIT 35.8 % (37.9-51.0); HGB HCT DIFFERENCE 0.2; LYMPHOCYTES % (AUTO) 13.6 % (13-45); MEAN CORPUSCULAR HEMOGLOBIN 28.7 pg (27.0-33.4); MEAN CORPUSCULAR HGB CONC 33.3 g/dL (32.0-36.0); MEAN CORPUSCULAR VOLUME 86 fl (80-97); MONOCYTES % (AUTO) 12.8 % (3-13); RED BLOOD COUNT 4.16 10^6/uL (4.35-5.55); RED CELL DISTRIBUTION WIDTH 18.4 % (11.5-14.0); SEGMENTED NEUTROPHILS % (AUTO) 70.1 % (42-78); WHITE BLOOD COUNT 9.5 10^3/uL (4.0-10.5)
--- NOTE | 2017-04-08 10:05 | RADIOLOGY REPORT (SQ) ---
EXAM DESCRIPTION: CHEST SINGLE VIEW COMPLETED DATE/TIME: 04/08/2017 9:45 am REASON FOR STUDY: possible aspiration COMPARISON: Chest films 02/11/2017, 02/17/2017, 03/18/2017 EXAM PARAMETERS: NUMBER OF VIEWS: One view. TECHNIQUE: Single frontal radiographic view of the chest acquired. RADIATION DOSE: NA LIMITATIONS: None. FINDINGS: LUNGS AND PLEURA: No opacities, masses or pneumothorax. No pleural effusion. MEDIASTINUM AND HILAR STRUCTURES: No masses. Contour normal. HEART AND VASCULAR STRUCTURES: Heart normal in size. Normal vasculature. BONES: No acute findings. HARDWARE: None in the chest. OTHER: No other significant finding. IMPRESSION: NO ACUTE RADIOGRAPHIC FINDING IN THE CHEST. TECHNICAL DOCUMENTATION: JOB ID: [id number]
[2017-04-08 10:23] LABS: ALANINE AMINOTRANSFERASE 39 U/L (21-72); ALBUMIN 3.5 g/dL (3.5-5.0); ALKALINE PHOSPHATASE 123 U/L (38-126); ANION GAP 11 (5-19); ASPARTATE AMINO TRANSFERASE 20 U/L (17-59); BILIRUBIN,DIRECT 0.4 mg/dL (0.0-0.4); BILIRUBIN,TOTAL 0.6 mg/dL (0.2-1.3); BLOOD UREA NITROGEN 29 mg/dL (7-20); CALCIUM 9.9 mg/dL (8.4-10.2); CARBON DIOXIDE 27 mmol/L (22-30); CHLORIDE 99 mmol/L (98-107); GLUCOSE 143 mg/dL (75-110); POTASSIUM 4.2 mmol/L (3.6-5.0); SODIUM 136.7 mmol/L (137-145); TOTAL PROTEIN 7.9 g/dL (6.3-8.2)
[2017-04-08 10:55] LABS: APPEARANCE,URINE SLIGHTLY-CLOUDY; BILIRUBIN,URINE NEGATIVE (NEGATIVE); GLUCOSE, URINE NEGATIVE (NEGATIVE); KETONES,URINE NEGATIVE (NEGATIVE); LEUKOCYTE ESTERASE,URINE SMALL (NEGATIVE); NITRITE,URINE NEGATIVE (NEGATIVE); PROTEIN,URINE NEGATIVE (NEGATIVE); URINE SPECIFIC GRAVITY 1.024; UROBILINOGEN,URINE NEGATIVE mg/dL (<2.0)
[2017-04-08 19:20] VITALS: BP 116/73
== END 2017-04-08 18:51 | disposition home or self-care (01) ==
LOC: ER 09:01
DX: Z71.1 Person with feared health complaint in whom no diagnosis is made (principal); I25.2 Old myocardial infarction; E78.00 Pure hypercholesterolemia, unspecified; I10 Essential (primary) hypertension; Z86.73 Personal history of transient ischemic attack (TIA), and cerebral infarction without residual deficits; E11.9 Type 2 diabetes mellitus without complications; Z93.1 Gastrostomy status
CPT/HCPCS: 36415; 71010; 80053; 81001; 82962; 85025; 87040; 87077; 87186; 99285

== ENCOUNTER 2017-04-13 22:28 | Emergency (ER) | payer MEDICARE, OTHER ==
[2017-04-13] MEDS ORDERED: VANCOMYCIN HCL INJ 1000 MG VIAL IV ONE (22:55)
--- NOTE | 2017-04-14 00:01 | ER Document Report ---
ED General - General Chief Complaint: Problem with Feeding Tube Stated Complaint: FEEDING TUBE ISSUE Time Seen by Provider: 04/13/17 22:50 Notes: Patient is a 76-year-old male who presents with complaint of possible infected feeding tube. Given some retirement. I did review his records it appears that the feeding tube is been there for at least a year. No reported fevers. Patient is nonverbal due to history of stroke and unable to contribute to history. TRAVEL OUTSIDE OF THE [place] IN LAST 30 DAYS: No - Related Data Allergies/Adverse Reactions: divalproex sodium [From Depakote] Allergy (Verified 01/17/17 17:13) oxycodone [Oxycodone] Adverse Reaction (Intermediate, Verified 01/12/17 19:24) agitation simvastatin [From Zocor] Adverse Reaction (Unknown, Verified 01/12/17 19:24) dysarthria Past Medical History - Social History Smoking Status: Never Smoker Frequency of alcohol use: None Drug Abuse: None Family History: Reviewed & Not Pertinent, Other - Unable to obtain given mental status - Past Medical History Cardiac Medical History: Reports: Hx Heart Attack, Hx Hypercholesterolemia, Hx Hypertension Pulmonary Medical History: Reports: Hx COPD, Hx Pneumonia Neurological Medical History: Reports: Hx Cerebrovascular Accident - CVA in 2014 , History of subarachnoid hemorrhage in 2016, Hx Seizures Endocrine Medical History: Reports: Hx Diabetes Mellitus Type 1, Hx Diabetes Mellitus Type 2. Denies: Hx Hyperthyroidism, Hx Hypothyroidism Renal/ Medical History: Reports: Hx Benign Prostatic Hyperplasia GI Medical History: Reports: Hx Gastroesophageal Reflux Disease - PEG tube post CVA. Denies: Hx Cirrhosis, Hx Hepatitis Musculoskeltal Medical History: Reports Hx Muscle Weakness Psychiatric Medical History: Reports: Hx Dementia, Hx Depression Infectious Medical History: Denies: Hx Hepatitis Past Surgical History: Reports: Hx Abdominal Surgery - Feeding gastrostomy tube , Hx Orthopedic Surgery - Right knee surgery. Titanium jelani, left femur after accident., Other - PEG tube placed - Immunizations Hx Diphtheria, Pertussis, Tetanus Vaccination: Yes Hx Pneumococcal Vaccination: 05/25/14 Review of Systems - Review of Systems -: Yes ROS unobtainable due to patient's medical condition - Patient is nonverbal. Physical Exam - Vital signs Vitals: Temp Pulse Resp BP Pulse Ox 97.5 F 65 18 127/63 H 100 04/13/17 22:38 04/13/17 22:38 04/13/17 22:38 04/13/17 22:38 04/13/17 22:38 - Notes Notes: General Appearance: Well nourished, alert, nonverbal. No distress. No obvious signs of pain. Vitals: reviewed, See vital signs table. Eyes: PERRL, EOMI, Conjuctiva clear Mouth: No decreasd moisture Lungs: No wheezing, No rales, No rhonci, No accessory muscle use, good air exchange bilaterally. Heart: Normal rate, Regular rythm, No murmur, no rub Abdomen: Normal BS, soft, No rigidity, No abdominal tenderness outpatient the abdomen. Patient does have a PEG tube is in place. There is a approximately 3 cm area of erythema coming off the left side of the PEG tube site consistent with an early cellulitis. No drainage from the PEG tube site. Extremities: strength 5/5 in all extremities, good pulses in all extremities, no swelling or tenderness in the extremities, no edema. Skin: warm, dry, appropriate color, no rash Neuro: Patient is awake and alert but nonverbal. Course - Re-evaluation Re-evalutation: 04/14/17 00:10 Patient's family members at bedside. She says that she is concerned that recently they increased his tube feedings and this seems to have distended his abdomen more since increased him from 65-75 mL's an hour. She has no other concerns at this time. 04/14/17 06:40 I outlined the edge of the cellulitis. Patient is a small amount cellulitis near the feeding tube. I will place him on Bactrim. He is already on Levaquin at home for decubitus infection. I will have him temporarily decrease his tube feedings from 75-70 mL's an hour until he is reevaluated by Dr. Gomes. I did write an order for them to have Dr. Gomes to reevaluate the patient today or soon as possible. They are to return to ER if the patient has spreading redness outside the demarcated zone, fevers, or appears unwell. I did explain the pain to the . Dictation of this chart was performed using voice recognition software; therefore, there may be some unintended grammatical errors. - Vital Signs Vital signs: Temp Pulse Resp BP Pulse Ox 97.9 F 72 14 124/82 97 08/21/17 03:24 04/14/17 02:16 04/14/17 03:24 04/14/17 05:01 04/14/17 05:01 - Laboratory Result Diagrams: 04/13/17 23:38 04/14/17 00:35 Laboratory results interpreted by me: 04/13/17 04/14/17 23:38 00:35 RBC 4.29 L Hgb 12.4 L Hct 37.3 L RDW 18.5 H Eosinophils % 8.7 H BUN 27 H Glucose 203 H Discharge - Discharge Clinical Impression: Cellulitis Qualifiers: Site of cellulitis: other site Qualified Code(s): L03.818 - Cellulitis of other sites Condition: Good Disposition: HOME, SELF-CARE Additional Instructions: Mr. Correia has cellulitis around the PEG tube. He does not have an elevated white blood cell count or fever; therefore we are able to try outpatient therapy with antibiotics. I have prescribed antibiotics. I will also decrease his tube feedings to 70mls/ hr from 75mls/ hr. Please have Dr. Gomes reassess him today. please return to [facility] ER if he has fever or spreading redness outside the demarcated line. Prescriptions: Sulfamethoxazole/Trimethoprim [Bactrim Ds Tablet] 1 each PEG BID #14 tablet
[2017-04-14 00:03] LABS: ABSOLUTE BASOPHILS # (AUTO) 0.1 10^3/uL (0.0-0.2); ABSOLUTE EOSINOPHILS # (AUTO) 0.6 10^3/uL (0.0-0.6); ABSOLUTE LYMPHOCYTES (AUTO) 1.2 10^3/uL (0.5-4.7); ABSOLUTE MONOCYTES (AUTO) 0.7 10^3/uL (0.1-1.4); ABSOLUTE NEUT (AUTO) 4.5 10^3/uL (1.7-8.2); BASOPHILS % (AUTO) 0.7 % (0-2); EOSINOPHILS % (AUTO) 8.7 % (0-6); HEMATOCRIT 37.3 % (37.9-51.0); HEMOGLOBIN 12.4 g/dL (13.5-17.0); HGB HCT DIFFERENCE -0.1; LYMPHOCYTES % (AUTO) 16.8 % (13-45); MEAN CORPUSCULAR HEMOGLOBIN 28.9 pg (27.0-33.4); MEAN CORPUSCULAR HGB CONC 33.2 g/dL (32.0-36.0); MEAN CORPUSCULAR VOLUME 87 fl (80-97); RED BLOOD COUNT 4.29 10^6/uL (4.35-5.55); RED CELL DISTRIBUTION WIDTH 18.5 % (11.5-14.0); SEGMENTED NEUTROPHILS % (AUTO) 63.8 % (42-78)
[2017-04-14 01:19] LABS: ANION GAP 10 (5-19); BLOOD UREA NITROGEN 27 mg/dL (7-20); CARBON DIOXIDE 28 mmol/L (22-30); CHLORIDE 102 mmol/L (98-107); CREATININE RESULT 0.63 mg/dL (0.52-1.25); GLUCOSE 203 mg/dL (75-110); POTASSIUM 4.8 mmol/L (3.6-5.0); SODIUM 139.6 mmol/L (137-145)
[2017-04-14 05:06] VITALS: BP 124/82
== END 2017-04-14 05:24 | disposition home or self-care (01) ==
LOC: ER 22:28
DX: L03.311 Cellulitis of abdominal wall (principal); Z93.1 Gastrostomy status; I69.320 Aphasia following cerebral infarction; I10 Essential (primary) hypertension; I25.2 Old myocardial infarction; J44.9 Chronic obstructive pulmonary disease, unspecified; Z88.8 Allergy status to other drugs, medicaments and biological substances; E11.9 Type 2 diabetes mellitus without complications
CPT/HCPCS: 99283; 96365; 36415; 85025; 80048; J3370

== ENCOUNTER 2017-04-14 13:39 | Emergency (ER) | payer MEDICARE, OTHER ==
--- NOTE | 2017-04-14 14:14 | ER Document Report ---
ED General - General Chief Complaint: Obstructed G-Tube Stated Complaint: JPEG PROBLEM Time Seen by Provider: 04/14/17 13:59 Mode of Arrival: Medic Information source: Emergency Med Personnel, Office Cannot obtain history due to: Dementia, Other Notes: 76 yr old male who is contracted and essentially unresponsive but a full code based on previous presentations presents with concerns of leakage of the g tube which was noted to be placed over 1 year ago. pt seen last night, noted ot have cellulitis around the tube, was dc home with antibiotics but unable to give today due to the leaking. TRAVEL OUTSIDE OF THE [place] IN LAST 30 DAYS: No - HPI Onset: Yesterday Onset/Duration: Sudden Quality of pain: No pain Severity: None Pain Level: Denies Associated symptoms: None Exacerbated by: Denies Relieved by: Denies Similar symptoms previously: Yes Recently seen / treated by doctor: Yes - Related Data Allergies/Adverse Reactions: divalproex sodium [From Depakote] Allergy (Verified 01/17/17 17:13) oxycodone [Oxycodone] Adverse Reaction (Intermediate, Verified 01/12/17 19:24) agitation simvastatin [From Zocor] Adverse Reaction (Unknown, Verified 01/12/17 19:24) dysarthria Past Medical History - Social History Smoking Status: Never Smoker Cigarette use (# per day): No Chew tobacco use (# tins/day): No Smoking Education Provided: No Family History: Other - Past Medical History Cardiac Medical History: Reports: Hx Heart Attack, Hx Hypercholesterolemia, Hx Hypertension Pulmonary Medical History: Reports: Hx COPD, Hx Pneumonia Neurological Medical History: Reports: Hx Cerebrovascular Accident - CVA in 2014 , History of subarachnoid hemorrhage in 2016, Hx Seizures Endocrine Medical History: Reports: Hx Diabetes Mellitus Type 1, Hx Diabetes Mellitus Type 2. Denies: Hx Hyperthyroidism, Hx Hypothyroidism Renal/ Medical History: Reports: Hx Benign Prostatic Hyperplasia GI Medical History: Reports: Hx Gastroesophageal Reflux Disease - PEG tube post CVA. Denies: Hx Cirrhosis, Hx Hepatitis Musculoskeltal Medical History: Reports Hx Muscle Weakness Psychiatric Medical History: Reports: Hx Dementia, Hx Depression Infectious Medical History: Denies: Hx Hepatitis Past Surgical History: Reports: Hx Abdominal Surgery - Feeding gastrostomy tube , Hx Orthopedic Surgery - Right knee surgery. Titanium jelani, left femur after accident., Other - PEG tube placed - Immunizations Hx Diphtheria, Pertussis, Tetanus Vaccination: Yes Hx Pneumococcal Vaccination: 05/25/14 Review of Systems - Review of Systems Notes: PHYSICAL EXAMINATION: GENERAL: Patient unresponsive to voice stimuli response to pain stimuli HEAD: Atraumatic, normocephalic. EYES: Pupils equal round and reactive to light, extraocular movements intact, sclera anicteric, conjunctiva are normal. ENT: Nares patent, oropharynx clear without exudates. Moist mucous membranes. NECK: Normal range of motion, supple without lymphadenopathy LUNGS: Breath sounds clear to auscultation bilaterally and equal. No wheezes rales or rhonchi. HEART: Regular rate and rhythm without murmurs ABDOMEN: Soft, g tube noted, there is white drainage from opening, there is erythema with redness encircled Musculoskeletal: contracted SKIN: area of erythema circled -: Yes ROS unobtainable due to patient's medical condition Physical Exam - Vital signs Vitals: Temp Pulse Resp BP Pulse Ox 98.6 F 84 16 149/87 H 95 04/14/17 13:48 04/14/17 13:48 04/14/17 13:48 04/14/17 13:48 04/14/17 13:48 Course - Re-evaluation Re-evalutation: 04/14/17 14:14 Dr. Mcleod was consulted for evaluation of G-tube 04/14/17 15:04 new 20 mauritian placed, area was cleansed, imaging pending xeroform to placed 04/14/17 16:18 Fluoroscopy study performed by Dr. Mcleod notes good placement will discharge home at this time After performing a Medical Screening Examination, I estimate there is LOW risk for OPEN FRACTURE, COMPARTMENT SYNDROME, TENDON RUPTURE, ACUTE NEUROVASCULAR INJURY, or RETAINED FOREIGN BODY, thus I consider the discharge disposition reasonable. Also, there is no evidence or peritonitis, sepsis, or toxicity. I have reevaluated this patient multiple times and no significant life threatening changes are noted. The patients family and I have discussed the diagnosis and risks, and we agree with discharging home with close follow-up with the understanding that symptoms and presentations can change. We also discussed returning to the Emergency Department immediately if new or worsening symptoms occur. We have discussed the symptoms which are most concerning (e.g., changing or worsening pain, fever, numbness, weakness, cool or painful digits) that necessitate immediate return. - Vital Signs Vital signs: Temp Pulse Resp BP Pulse Ox 98.6 F 91 16 124/70 97 04/14/17 13:48 04/14/17 15:26 04/14/17 13:48 04/14/17 15:26 04/14/17 15:26 - Laboratory Result Diagrams: 04/14/17 15:20 04/14/17 15:20 Laboratory results interpreted by me: 04/14/17 15:20 Hgb 13.3 L RDW 17.8 H Eosinophils % 8.2 H - Diagnostic Test Radiology reviewed: Image reviewed, Reports reviewed Discharge - Discharge Clinical Impression: Gastrojejunostomy tube dislodgement Cellulitis Qualifiers: Site of cellulitis: unspecified site Qualified Code(s): L03.90 - Cellulitis, unspecified Condition: Stable Disposition: HOME, SELF-CARE Additional Instructions: Return immediately if there are any other concerns Referrals: MARGARITA ZARATE MD [Primary Care Provider] - Follow up tomorrow
[2017-04-14] MEDS ORDERED: MORPHINE SULFATE 10 MG/ML INJ IV ONE (14:59)
--- NOTE | 2017-04-14 15:27 | OPERATIVE REPORT E ---
Operative Report NAME: THAD JOY : 1940 AGE: 76Y DATE OF SURGERY: 04/14/2017 ROOM: PREOPERATIVE DIAGNOSES: 1. Misplaced percutaneous endoscopic gastrostomy tube. 2. PEG site infection. OPERATION: 1. Replacement of PEG tube after dilating tract. 2. Debridement of anterior abdominal wall PEG site. SURGEON: JIMY SANCHEZ M.D. ANESTHESIA: None. COMPLICATIONS: None. ESTIMATED BLOOD LOSS: None. DRAINS: None. SUMMARY OF PROCEDURE: The patient was seen in the emergency department. He is essentially comatose. He has a chronically placed feeding tube 20 Nigerian, with balloon catheter. There was erythema and induration medially in a horizontal direction around the PEG tube site. The PEG balloon was decompressed and the PEG removed. The feeding tube balloon was in fact lodged in the subcutaneous tissue, and consequently the patient was receiving feedings in the intra-abdominal wall. We cleaned up the anterior abdominal wall erythema and devitalized tissue which was minimal around the PEG site with peroxide and gentle mechanical debridement. This sufficiently decompressed the inflammatory pocket medially in relation to the PEG tube exit site. I then used a series of dilators starting with a Q-tip and then 2, 4, 6, and eventually 8 mm dilators dilating up the tract. Each pass of the Hegar dilator passed uneventfully into the gastric lumen. Eventually we placed a new 20 Nigerian 3-way feeding tube into the lumen of the stomach and insufflated the stomach with 5 mL of saline. The balloon was brought up against the anterior stomach wall and the bolster brought down towards the anterior abdominal wall, but not too tight. In fact, it was loose. We put some Xeroform and 4 x 4s around the feeding tube. The patient tolerated the procedure well. The plan will be to obtain a contrast study through the G-tube to confirm appropriate position of the feeding tube. Also, discharge instructions will be provided for the half-way to ensure proper ongoing utilization of the tube. DICTATING PHYSICIAN: JIMY SANCHEZ M.D. [id number] PHY#: [id number] ID: [id number] JOB#: [id number] ACCT: [id number] cc:JIMY SANCHEZ M.D. >
[2017-04-14 15:32] LABS: ABSOLUTE BASOPHILS # (AUTO) 0.1 10^3/uL (0.0-0.2); ABSOLUTE EOSINOPHILS # (AUTO) 0.5 10^3/uL (0.0-0.6); ABSOLUTE LYMPHOCYTES (AUTO) 1.5 10^3/uL (0.5-4.7); ABSOLUTE MONOCYTES (AUTO) 0.6 10^3/uL (0.1-1.4); ABSOLUTE NEUT (AUTO) 3.8 10^3/uL (1.7-8.2); BASOPHILS % (AUTO) 0.8 % (0-2); EOSINOPHILS % (AUTO) 8.2 % (0-6); HEMATOCRIT 40.4 % (37.9-51.0); HEMOGLOBIN 13.3 g/dL (13.5-17.0); HGB HCT DIFFERENCE -0.5; LYMPHOCYTES % (AUTO) 23.1 % (13-45); MEAN CORPUSCULAR HEMOGLOBIN 28.5 pg (27.0-33.4); MEAN CORPUSCULAR HGB CONC 32.9 g/dL (32.0-36.0); MEAN CORPUSCULAR VOLUME 87 fl (80-97); MONOCYTES % (AUTO) 9.2 % (3-13); RED BLOOD COUNT 4.67 10^6/uL (4.35-5.55); RED CELL DISTRIBUTION WIDTH 17.8 % (11.5-14.0); SEGMENTED NEUTROPHILS % (AUTO) 58.7 % (42-78); WHITE BLOOD COUNT 6.4 10^3/uL (4.0-10.5)
--- NOTE | 2017-04-14 15:58 | RADIOLOGY REPORT (SQ) ---
EXAM DESCRIPTION: KUB/ABDOMEN (SINGLE VIEW) COMPLETED DATE/TIME: 04/14/2017 3:43 pm REASON FOR STUDY: with contrast for g tube placement, possible obstruction COMPARISON: None. NUMBER OF VIEWS: One view. TECHNIQUE: Supine radiographic image of the abdomen acquired, after the patient's gastrostomy tube was replaced by Dr. Mcleod. LIMITATIONS: None. FINDINGS: 15 mL of Omnipaque 300 was injected through the patient's gastrostomy tube. The tubing is not opacified. There is a small amount of contrast in the stomach fundus. BOWEL GAS PATTERN: Normal bowel gas pattern. No dilated loops. CALCIFICATIONS: No suspicious calcifications. SOFT TISSUES: No gross mass or suggestion of organomegaly. HARDWARE: Vazquez catheter in the bladder BONES: Convex rightward lumbar curvature OTHER: No other significant finding. IMPRESSION: Contrast was injected through the patient's gastrostomy tube. There is contrast in the stomach fundus. The tubing itself and balloon are not well seen. Follow-up limited tube injection u nder fluoro with direct visualization recommended. This was discussed with Dr. Yin Otherwise unremarkable bowel gas pattern TECHNICAL DOCUMENTATION: JOB ID: [id number] [employer]- All Rights Reserved
--- NOTE | 2017-04-14 16:27 | RADIOLOGY REPORT (SQ) ---
EXAM DESCRIPTION: KUB/ABDOMEN (SINGLE VIEW); INJECT EXISTING/TUBE PLACEMENT; NOT FOR OR FLUORO T O 1 HR COMPLETED DATE/TIME: 04/14/2017 4:19 pm REASON FOR STUDY: TUBE PLACEMENT; tube placement COMPARISON: KUB 04/14/2017 FLUOROSCOPY TIME: 2 seconds 1 digital radiographic image saved to PACS. TECHNIQUE: Intra-operative images acquired during surgical procedure to evaluate progress. NUMBER OF IMAGES: 1 digital radiographic image LIMITATIONS: None. FINDINGS: Dr Mcleod injected 30 mL of Gastrografin through the patient's G-tube. There is good fi lling of the stomach, prompt emptying into normal duodenum. Gastrostomy tube tip is in good position ing. IMPRESSION: Gastrostomy tube tip in good positioning. COMMENT: Quality ID [id number]: Final reports for procedures using fluoroscopy that document radiation exp osure indices, or exposure time and number of fluorographic images (if radiation exposure indices are not available) Please consult full operative report of the attending physician for description of the procedure. TECHNICAL DOCUMENTATION: JOB ID: [id number] [employer]- All Rights Reserved
[2017-04-14 17:08] LABS: ALANINE AMINOTRANSFERASE 38 U/L (21-72); ALBUMIN 3.6 g/dL (3.5-5.0); ALKALINE PHOSPHATASE 108 U/L (38-126); ANION GAP 12 (5-19); ASPARTATE AMINO TRANSFERASE 41 U/L (17-59); BILIRUBIN,DIRECT 0.6 mg/dL (0.0-0.4); BILIRUBIN,TOTAL 0.6 mg/dL (0.2-1.3); BLOOD UREA NITROGEN 24 mg/dL (7-20); CALCIUM 10.4 mg/dL (8.4-10.2); CARBON DIOXIDE 24 mmol/L (22-30); CHLORIDE 105 mmol/L (98-107); CREATININE RESULT 0.59 mg/dL (0.52-1.25); GLUCOSE 118 mg/dL (75-110); POTASSIUM 4.9 mmol/L (3.6-5.0); SODIUM 141.1 mmol/L (137-145); TOTAL PROTEIN 8.1 g/dL (6.3-8.2)
[2017-04-14 18:35] VITALS: BP 120/65
== END 2017-04-14 18:34 | disposition home or self-care (01) ==
LOC: ER 13:39
DX: Z43.1 Encounter for attention to gastrostomy (principal); L03.90 Cellulitis, unspecified; E78.00 Pure hypercholesterolemia, unspecified; I10 Essential (primary) hypertension; J44.9 Chronic obstructive pulmonary disease, unspecified; E11.9 Type 2 diabetes mellitus without complications; K21.9 Gastro-esophageal reflux disease without esophagitis; I25.2 Old myocardial infarction; Z86.73 Personal history of transient ischemic attack (TIA), and cerebral infarction without residual deficits
CPT/HCPCS: 99285; 96374; 43760; 36415; 85025; 80053; 49465; 74000; 76000; J2270

== ENCOUNTER → 2017-04-22 | Outpatient (CLI) | payer MEDICARE, OTHER ==
--- NOTE | 2017-04-22 17:26 | RADIOLOGY REPORT (SQ) ---
EXAM DESCRIPTION: KUB/ABDOMEN (SINGLE VIEW) COMPLETED DATE/TIME: 04/22/2017 5:07 pm REASON FOR STUDY: FEEDING DIFFICULTIES R63.3 FEEDING DIFFICULTIES Z93.1 GASTROSTOMY STATUS COMPARISON: CT abdomen pelvis 02/18/2017 Abdominal films 03/19/2017, 04/14/2017 NUMBER OF VIEWS: One view. TECHNIQUE: Supine radiographic image of the abdomen acquired. LIMITATIONS: None. FINDINGS: BOWEL GAS PATTERN: Air in the stomach, which is nondistended. Gastrostomy tube along the gastric body. There is a stippled gas pattern along the ascending colon. Below this most likely represents stool i n the ascending colon, pneumatosis along the bowel wall could not be excluded. This finding was disc ussed with Dr. Denton, follow-up CT will be scheduled. There is air distending the transverse colon, and air in multiple borderline distended small bowel lo ops in the left upper quadrant. CALCIFICATIONS: No suspicious calcifications. SOFT TISSUES: No gross mass or suggestion of organomegaly. HARDWARE: Gastrostomy tube over the gastric antrum. Rectal tube present. BONES: Osteoporotic with left femoral intramedullary nail at the bottom edge of the field of view OTHER: No other significant finding. IMPRESSION: Probable ileus bowel gas pattern Stable old bowel gas pattern or tiny air bubbles along the ascending colon. Although this could be i n stool, pneumatosis along the bowel wall is possible. This finding was discussed with Dr. Denton. TECHNICAL DOCUMENTATION: JOB ID: [id number] [employer]- All Rights Reserved
== END ==
LOC: RAD 16:38
PROVIDERS: ATTEND Internal Medicine Gastroenterology
DX: R63.3 Feeding difficulties (principal); Z93.1 Gastrostomy status
CPT/HCPCS: 74000

== ENCOUNTER → 2017-04-23 | Outpatient (CLI) | payer MEDICARE, OTHER ==
--- NOTE | 2017-04-23 17:17 | RADIOLOGY REPORT (SQ) ---
EXAM DESCRIPTION: CT ABD/PELVIS ORAL ONLY COMPLETED DATE/TIME: 04/23/2017 4:26 pm REASON FOR STUDY: ABNORMAL FINDINGS ON DIAGNOSTIC IMAGES OF DIGESTIVE TRACT R93.3 ABNORMAL FINDINGS ON DX IMAGING OF PRT DIGESTIVE TRACT COMPARISON: KUB 04/22/2017 CT abdomen pelvis 02/18/2017 TECHNIQUE: CT scan of the abdomen and pelvis performed without intravenous contrast. Patient was gi nellie oral contrast through the G-tube. Images reviewed with lung, soft tissue, and bone windows. Darshan nstructed coronal and sagittal MPR images reviewed. All images stored on PACS. All CT scanners at this facility use dose modulation, iterative reconstruction, and/or weight based d osing when appropriate to reduce radiation dose to as low as reasonably achievable (ALARA). [facility]: Dose Right [facility]: CareDose [facility]: Dose Right [facility]: Teradose 4D [facility]: [employer] RADIATION DOSE: Up-to-date CT equipment and radiation dose reduction techniques were employed. CTDIv ol: 17.6 mGy. DLP: 916 mGy-cm.mGy. LIMITATIONS: None. FINDINGS: LOWER CHEST: No significant findings. No nodules or infiltrates. NON-CONTRASTED LIVER, SPLEEN, ADRENALS: Evaluation limited by lack of IV contrast. No identified sign ificant masses. PANCREAS: No masses. No peripancreatic inflammatory changes. GALLBLADDER: No identified stones by CT criteria. No inflammatory changes to suggest cholecystitis. RIGHT KIDNEY AND URETER: No suspicious masses. Assessment limited by lack of IV contrast. No signif icant calcifications. No hydronephrosis or hydroureter. LEFT KIDNEY AND URETER: No suspicious masses. 2.6 cm cyst left lower pole kidney. Assessment limite d by lack of IV contrast. No significant calcifications. No hydronephrosis or hydroureter. AORTA AND RETROPERITONEUM: No aneurysm. No retroperitoneal masses or adenopathy. BOWEL AND PERITONEAL CAVITY: Oral contrast throughout the gastrointestinal tract without evidence of bowel obstruction. Gastrostomy tube in good positioning. Moderate amount of stool in the colon. No bowel wall pneumatosis. APPENDIX: Normal. PELVIS, BLADDER, AND ABDOMINAL WALL:Vazquez catheter drains the bladder. No pelvic adenopathy or desi s. No free pelvic fluid BONES: Degenerative disc changes lower lumbar spine OTHER: No other significant finding. IMPRESSION: NO SIGNIFICANT OR ACUTE PROCESS IN THE ABDOMEN OR PELVIS. COMMENT: Quality ID # [id number]: Final reports with documentation of one or more dose reduction techniques (e.g., Automated exposure control, adjustment of the mA and/or kV according to patient size, use of iterative reconstruction technique) TECHNICAL DOCUMENTATION: JOB ID: [id number] [employer]- All Rights Reserved
== END ==
LOC: RAD 15:57
PROVIDERS: ATTEND Internal Medicine Gastroenterology
DX: R93.3 Abnormal findings on diagnostic imaging of other parts of digestive tract (principal); M51.36 Other intervertebral disc degeneration, lumbar region
CPT/HCPCS: 74176

== ENCOUNTER 2017-09-20 16:37 | Inpatient (IN) | payer MEDICARE, OTHER ==
[~2017-09-20 16:37] MED LIST: SUCCINYLCHOLINE CHLORIDE INJ 200 MG/10 ML VIAL ONE
[2017-09-20] MEDS ORDERED: LORAZEPAM INJ 2 MG/1 ML VIAL ONE (16:46)
[2017-09-20] MEDS ORDERED: PROPOFOL 100 ML IV ONE (16:52)
[2017-09-20] MEDS ORDERED: ETOMIDATE INJ/PF 20 MG/10 ML SDV IV ONE (16:55)
--- NOTE | 2017-09-20 16:57 | ER Document Report ---
ED General - General Chief Complaint: Respiratory Arrest Stated Complaint: RESPIRTAORY DISTRESS Time Seen by Provider: 09/20/17 16:54 Notes: 76-year-old male coming from nursing facility found in respiratory distress. Patient was gurgling and unresponsive. Oxygen saturations were low. EMS was called. EMS arrived and began bagging the patient. Patient minimally responsive. history of epilepsy. On ra. TRAVEL OUTSIDE OF THE [place] IN LAST 30 DAYS: No - Related Data Allergies/Adverse Reactions: divalproex sodium [From Depakote] Allergy (Verified 01/17/17 17:13) oxycodone [Oxycodone] Adverse Reaction (Intermediate, Verified 01/12/17 19:24) agitation simvastatin [From Zocor] Adverse Reaction (Unknown, Verified 01/12/17 19:24) dysarthria Past Medical History - General Information source: Relative, H Records, Outside Facility Records Cannot obtain history due to: Dementia, Altered mental status - Social History Smoking Status: Unknown if Ever Smoked Frequency of alcohol use: Unknown Drug Abuse: Other - Unknown Lives with: Skilled Nursing Family History: Other - Past Medical History Cardiac Medical History: Reports: Hx Heart Attack, Hx Hypercholesterolemia, Hx Hypertension Pulmonary Medical History: Reports: Hx COPD, Hx Pneumonia Neurological Medical History: Reports: Hx Cerebrovascular Accident - CVA in 2013 , History of subarachnoid hemorrhage in 2016, Hx Seizures Endocrine Medical History: Reports: Hx Diabetes Mellitus Type 1, Hx Diabetes Mellitus Type 2. Denies: Hx Hyperthyroidism, Hx Hypothyroidism Renal/ Medical History: Reports: Hx Benign Prostatic Hyperplasia GI Medical History: Reports: Hx Gastroesophageal Reflux Disease - PEG tube post CVA. Denies: Hx Cirrhosis, Hx Hepatitis Musculoskeltal Medical History: Reports Hx Muscle Weakness Psychiatric Medical History: Reports: Hx Dementia, Hx Depression Infectious Medical History: Denies: Hx Hepatitis Past Surgical History: Reports: Hx Abdominal Surgery - Feeding gastrostomy tube , Hx Orthopedic Surgery - Right knee surgery. Titanium jelani, left femur after accident., Other - PEG tube placed - Immunizations Hx Diphtheria, Pertussis, Tetanus Vaccination: Yes Hx Pneumococcal Vaccination: 05/25/14 Review of Systems - Review of Systems -: Yes ROS unobtainable due to patient's medical condition Physical Exam - Vital signs Vitals: Resp Pulse Ox 41 H 96 09/20/17 16:39 09/20/17 16:39 Interpretation: Tachycardic, Hypoxic - General General appearance: Appears well, Alert - HEENT Head: Normocephalic, Atraumatic Eyes: Normal Pupils: PERRL - Respiratory Respiratory status: Respiratory distress, Labored Chest status: Nontender Breath sounds: Normal, Decreased air movement, Rhonchi Chest palpation: Normal - Cardiovascular Rhythm: Regular, Tachycardia Heart sounds: Normal auscultation Murmur: No - Abdominal Inspection: Normal Distension: No distension Bowel sounds: Normal Tenderness: Nontender Organomegaly: No organomegaly - Back Back: Normal, Nontender - Extremities General upper extremity: Normal inspection, Nontender, Normal color, Normal ROM , Normal temperature General lower extremity: Normal inspection, Nontender, Normal color, Normal ROM , Normal temperature, Normal weight bearing. No: Rob's sign - Neurological Cognition: Inattentive [place] Coma Scale Verbal: Incomprehensible Sensory: Normal Notes: Bilateral upper extremities contracted - Skin Skin Temperature: Warm Skin Moisture: Dry Skin Color: Normal Course - Re-evaluation Re-evalutation: 09/20/17 18:54 Patient with respiratory failure possible sepsis. Audible gurgling. Concern for airway as well as sepsis. Intubation performed. Please see note. At this time presumed sepsis. Possible urosepsis versus aspiration pneumonia. Will need admit. Of note patient is a full code. 09/20/17 18:55 Laboratory 09/20/17 09/20/17 09/20/17 16:45 16:45 16:45 WBC 24.3 H RBC 5.54 Hgb 16.2 Hct 49.4 MCV 89 MCH 29.2 MCHC 32.7 RDW 17.7 H Plt Count 166 Total Counted 100 Seg Neutrophils % Not Reportable Seg Neuts % (Manual) 73 Band Neutrophils % 19 H Lymphocytes % Not Reportable Lymphocytes % (Manual) 2 L Monocytes % Not Reportable Monocytes % (Manual) 3 Eosinophils % Not Reportable Eosinophils % (Manual) 0 Basophils % Not Reportable Basophils % (Manual) 0 Metamyelocytes % 3 H Absolute Neutrophils Not Reportable Abs Neuts (Manual) 23.1 H Absolute Lymphocytes Not Reportable Abs Lymphs (Manual) 0.5 Absolute Monocytes Not Reportable Abs Monocytes (Manual) 0.7 Absolute Eosinophils Not Reportable Absolute Eos (Manual) 0.0 Absolute Basophils Not Reportable Abs Basophils (Manual) 0.0 Toxic Granulation SLIGHT Toxic Vacuolation PRESENT Platelet Comment ADEQUATE Anisocytosis 2+ Rouleaux SLIGHT PT 15.1 INR 1.11 Carbonic Acid HCO3/H2CO3 Ratio ABG pH ABG pCO2 ABG pO2 ABG HCO3 ABG Total CO2 ABG O2 Saturation ABG Base Excess FiO2 Sodium 145.9 H Potassium 4.2 Chloride 105 Carbon Dioxide 28 Anion Gap 13 BUN 32 H Creatinine 0.71 Est GFR ( Amer) > 60 Est GFR (Non-Af Amer) > 60 Glucose 212 H POC Glucose Lactic Acid Calcium 10.3 H Total Bilirubin 0.7 Direct Bilirubin 0.3 Neonat Total Bilirubin Not Reportable Neonat Direct Bilirubin Not Reportable Neonat Indirect Bili Not Reportable AST 27 ALT 23 Alkaline Phosphatase 96 Creatine Kinase CK-MB (CK-2) Troponin I NT-Pro-B Natriuret Pep Total Protein 8.2 Albumin 4.0 Urine Color Urine Appearance Urine pH Ur Specific [place] Urine Protein Urine Glucose (UA) Urine Ketones Urine Blood Urine Nitrite Urine Bilirubin Urine Urobilinogen Ur Leukocyte Esterase Urine WBC (Auto) Urine RBC (Auto) Urine WBC Clumps Squamous Epi Cells Auto Urine Mucus (Auto) Urine Ascorbic Acid 09/20/17 09/20/17 09/20/17 16:45 16:45 16:45 WBC RBC Hgb Hct MCV MCH MCHC RDW Plt Count Total Counted Seg Neutrophils % Seg Neuts % (Manual) Band Neutrophils % Lymphocytes % Lymphocytes % (Manual) Monocytes % Monocytes % (Manual) Eosinophils % Eosinophils % (Manual) Basophils % Basophils % (Manual) Metamyelocytes % Absolute Neutrophils Abs Neuts (Manual) Absolute Lymphocytes Abs Lymphs (Manual) Absolute Monocytes Abs Monocytes (Manual) Absolute Eosinophils Absolute Eos (Manual) Absolute Basophils Abs Basophils (Manual) Toxic Granulation Toxic Vacuolation Platelet Comment Anisocytosis Rouleaux PT INR Carbonic Acid HCO3/H2CO3 Ratio ABG pH ABG pCO2 ABG pO2 ABG HCO3 ABG Total CO2 ABG O2 Saturation ABG Base Excess FiO2 Sodium Potassium Chloride Carbon Dioxide Anion Gap BUN Creatinine Est GFR ( Amer) Est GFR (Non-Af Amer) Glucose POC Glucose Lactic Acid 2.9 H Calcium Total Bilirubin Direct Bilirubin Neonat Total Bilirubin Neonat Direct Bilirubin Neonat Indirect Bili AST ALT Alkaline Phosphatase Creatine Kinase 52 L CK-MB (CK-2) 1.18 Troponin I 0.062 NT-Pro-B Natriuret Pep 1760 H Total Protein Albumin Urine Color Urine Appearance Urine pH Ur Specific [place] Urine Protein Urine Glucose (UA) Urine Ketones Urine Blood Urine Nitrite Urine Bilirubin Urine Urobilinogen Ur Leukocyte Esterase Urine WBC (Auto) Urine RBC (Auto) Urine WBC Clumps Squamous Epi Cells Auto Urine Mucus (Auto) Urine Ascorbic Acid 09/20/17 09/20/17 09/20/17 17:00 17:09 18:14 WBC RBC Hgb Hct MCV MCH MCHC RDW Plt Count Total Counted Seg Neutrophils % Seg Neuts % (Manual) Band Neutrophils % Lymphocytes % Lymphocytes % (Manual) Monocytes % Monocytes % (Manual) Eosinophils % Eosinophils % (Manual) Basophils % Basophils % (Manual) Metamyelocytes % Absolute Neutrophils Abs Neuts (Manual) Absolute Lymphocytes Abs Lymphs (Manual) Absolute Monocytes Abs Monocytes (Manual) Absolute Eosinophils Absolute Eos (Manual) Absolute Basophils Abs Basophils (Manual) Toxic Granulation Toxic Vacuolation Platelet Comment Anisocytosis Rouleaux PT INR Carbonic Acid 1.44 H HCO3/H2CO3 Ratio 17:1 ABG pH 7.33 L ABG pCO2 47.9 H ABG pO2 80.0 ABG HCO3 24.5 ABG Total CO2 26.0 ABG O2 Saturation 94.9 ABG Base Excess -1.9 FiO2 50% Sodium Potassium Chloride Carbon Dioxide Anion Gap BUN Creatinine Est GFR ( Amer) Est GFR (Non-Af Amer) Glucose POC Glucose 196 H Lactic Acid Calcium Total Bilirubin Direct Bilirubin Neonat Total Bilirubin Neonat Direct Bilirubin Neonat Indirect Bili AST ALT Alkaline Phosphatase Creatine Kinase CK-MB (CK-2) Troponin I NT-Pro-B Natriuret Pep Total Protein Albumin Urine Color YELLOW Urine Appearance CLOUDY Urine pH 5.0 Ur Specific [place] 1.029 Urine Protein 100 H Urine Glucose (UA) 50 H Urine Ketones NEGATIVE Urine Blood MODERATE H Urine Nitrite NEGATIVE Urine Bilirubin NEGATIVE Urine Urobilinogen NEGATIVE Ur Leukocyte Esterase LARGE H Urine WBC (Auto) >182 Urine RBC (Auto) 133 Urine WBC Clumps MOD Squamous Epi Cells Auto 1 Urine Mucus (Auto) RARE Urine Ascorbic Acid 40 H 09/20/17 16:45 09/20/17 16:45 MCV 89 fl (80-97) 09/20/17 16:45 MCH 29.2 pg (27.0-33.4) 09/20/17 16:45 MCHC 32.7 g/dL (32.0-36.0) 09/20/17 16:45 RDW 17.7 % (11.5-14.0) H 09/20/17 16:45 Seg Neutrophils % Not Reportable 09/20/17 16:45 Lymphocytes % Not Reportable 09/20/17 16:45 Monocytes % Not Reportable 09/20/17 16:45 Eosinophils % Not Reportable 09/20/17 16:45 Basophils % Not Reportable 09/20/17 16:45 Absolute Neutrophils Not Reportable 09/20/17 16:45 Absolute Lymphocytes Not Reportable 09/20/17 16:45 Absolute Monocytes Not Reportable 09/20/17 16:45 Absolute Eosinophils Not Reportable 09/20/17 16:45 Absolute Basophils Not Reportable 09/20/17 16:45 Carbonic Acid 1.44 mmol/L (1.05-1.35) H 09/20/17 18:14 HCO3/H2CO3 Ratio 17:1 09/20/17 18:14 ABG pH 7.33 (7.35-7.45) L 09/20/17 18:14 ABG pCO2 47.9 mmHg (35-45) H 09/20/17 18:14 ABG pO2 80.0 mmHg (80-100) 09/20/17 18:14 ABG HCO3 24.5 mmol/L (20-26) 09/20/17 18:14 ABG O2 Saturation 94.9 % (94-98) 09/20/17 18:14 ABG Base Excess -1.9 mmol/L 09/20/17 18:14 FiO2 50% 09/20/17 18:14 Chloride 105 mmol/L (98-107) 09/20/17 16:45 Carbon Dioxide 28 mmol/L (22-30) 09/20/17 16:45 Anion Gap 13 (5-19) 09/20/17 16:45 Est GFR ( Amer) > 60 (>60) 09/20/17 16:45 Est GFR (Non-Af Amer) > 60 (>60) 09/20/17 16:45 Glucose 212 mg/dL (75-110) H 09/20/17 16:45 Lactic Acid 2.9 mmol/L (0.7-2.1) H 09/20/17 16:45 Calcium 10.3 mg/dL (8.4-10.2) H 09/20/17 16:45 Total Bilirubin 0.7 mg/dL (0.2-1.3) 09/20/17 16:45 AST 27 U/L (17-59) 09/20/17 16:45 ALT 23 U/L (21-72) 09/20/17 16:45 Alkaline Phosphatase 96 U/L (38-126) 09/20/17 16:45 Total Protein 8.2 g/dL (6.3-8.2) 09/20/17 16:45 Albumin 4.0 g/dL (3.5-5.0) 09/20/17 16:45 Urine Color YELLOW 09/20/17 17:00 Urine Appearance CLOUDY 09/20/17 17:00 Urine pH 5.0 (5.0-9.0) 09/20/17 17:00 Ur Specific [place] 1.029 09/20/17 17:00 Urine Protein 100 mg/dL (NEGATIVE) H 09/20/17 17:00 Urine Glucose (UA) 50 mg/dL (NEGATIVE) H 09/20/17 17:00 Urine Ketones NEGATIVE mg/dL (NEGATIVE) 09/20/17 17:00 Urine Blood MODERATE (NEGATIVE) H 09/20/17 17:00 Urine Nitrite NEGATIVE (NEGATIVE) 09/20/17 17:00 Ur Leukocyte Esterase LARGE (NEGATIVE) H 09/20/17 17:00 Urine WBC (Auto) >182 /HPF 09/20/17 17:00 Urine RBC (Auto) 133 /HPF 09/20/17 17:00 09/20/17 09/20/17 16:45 16:45 Creatine Kinase 52 L CK-MB (CK-2) 1.18 Troponin I 0.062 NT-Pro-B Natriuret Pep 1760 H 09/20/17 20:23 Patient started on levo fed. Patient has 2 peripheral lines. Patient has very difficult anatomy of the neck. Consulted hospitalist. Would like surgeon to intervene with a subclavian. Consulted with Dr. Lundberg with general surgery who will see patient shortly. - Vital Signs Vital signs: Temp Pulse Resp BP Pulse Ox 14 126/79 H 100 09/20/17 19:56 09/20/17 19:56 09/20/17 19:56 - Laboratory Result Diagrams: 09/20/17 16:45 09/20/17 16:45 Laboratory results interpreted by me: 09/20/17 09/20/17 09/20/17 16:45 16:45 16:45 WBC 24.3 H RDW 17.7 H Band Neutrophils % 19 H Lymphocytes % (Manual) 2 L Metamyelocytes % 3 H Abs Neuts (Manual) 23.1 H Carbonic Acid ABG pH ABG pCO2 Sodium 145.9 H BUN 32 H Glucose 212 H POC Glucose Lactic Acid 2.9 H Calcium 10.3 H Creatine Kinase NT-Pro-B Natriuret Pep Urine Protein Urine Glucose (UA) Urine Blood Ur Leukocyte Esterase Urine Ascorbic Acid 09/20/17 09/20/17 09/20/17 16:45 16:45 17:00 WBC RDW Band Neutrophils % Lymphocytes % (Manual) Metamyelocytes % Abs Neuts (Manual) Carbonic Acid ABG pH ABG pCO2 Sodium BUN Glucose POC Glucose Lactic Acid Calcium Creatine Kinase 52 L NT-Pro-B Natriuret Pep 1760 H Urine Protein 100 H Urine Glucose (UA) 50 H Urine Blood MODERATE H Ur Leukocyte Esterase LARGE H Urine Ascorbic Acid 40 H 09/20/17 09/20/17 17:09 18:14 WBC RDW Band Neutrophils % Lymphocytes % (Manual) Metamyelocytes % Abs Neuts (Manual) Carbonic Acid 1.44 H ABG pH 7.33 L ABG pCO2 47.9 H Sodium BUN Glucose POC Glucose 196 H Lactic Acid Calcium Creatine Kinase NT-Pro-B Natriuret Pep Urine Protein Urine Glucose (UA) Urine Blood Ur Leukocyte Esterase Urine Ascorbic Acid Procedures - Intubation Orotracheal Airway evaluation: Normal anatomy Mallampati Classification: Class 2 Medications: Etomidate, Succinylcholine, Diprivan Intubation method: Orotracheal Blade type: Brigitte Blade size: 4 Equipment used: Glidescope ETT size: 7.5 ETT secured at (cm): 22 Breath Sounds after Intubation: Equal End tidal CO2 confirmed: Yes Ventilator settings: SIMV Intubation Complications: No complications Critical Care Note - Critical Care Note Total time excluding time spent on procedures (mins): 75 Discharge - Discharge Clinical Impression: Respiratory failure Qualifiers: Chronicity: acute Respiratory failure complication: unspecified whether with hypoxia or hypercapnia Qualified Code(s): J96.00 - Acute respiratory failure, unspecified whether with hypoxia or hypercapnia Sepsis Qualifiers: Sepsis type: sepsis due to unspecified organism Qualified Code(s): A41.9 - Sepsis, unspecified organism Condition: Poor Disposition: ADMITTED INPATIENT Admitting Provider: [facility] Unit Admitted: ICU
[2017-09-20 17:06] LABS: HEMATOCRIT 49.4 % (37.9-51.0); HEMOGLOBIN 16.2 g/dL (13.5-17.0); MEAN CORPUSCULAR HEMOGLOBIN 29.2 pg (27.0-33.4); MEAN CORPUSCULAR HGB CONC 32.7 g/dL (32.0-36.0); MEAN CORPUSCULAR VOLUME 89 fl (80-97); PLATELET COUNT 166 10^3/uL (150-450); RED BLOOD COUNT 5.54 10^6/uL (4.35-5.55); RED CELL DISTRIBUTION WIDTH 17.7 % (11.5-14.0); WHITE BLOOD COUNT 24.3 10^3/uL (4.0-10.5)
[2017-09-20 17:10] LABS: INTERNATIONAL RATION (INR) 1.11; PROTHROMBIN TIME 15.1 SEC (11.4-15.4)
[2017-09-20] MEDS ORDERED: NORMAL SALINE 1000 ML 1,000 ML IV PRN (17:13)
[2017-09-20] MEDS ORDERED: PIPERACILLIN/TAZOBACTAM 3.375 GM VIAL IV ONE (17:16)
[2017-09-20 17:24] LABS: ABSOLUTE LYMPHOCYTES# (MANUAL) 0.5 10^3/uL (0.5-4.7); ABSOLUTE MONOCYTES # (MANUAL) 0.7 10^3/uL (0.1-1.4); ABSOLUTE NEUTROPHILS# (MANUAL) 23.1 10^3/uL (1.7-8.2); BASOPHILS % (MANUAL) 0 % (0-2); EOSINOPHILS % (MANUAL) 0 % (0-6); LYMPHOCYTES % (MANUAL) 2 % (13-45); MONOCYTES % (MANUAL) 3 % (3-13); SEGMENTED NEUTROPHILS % (MAN) 73 % (42-78); TOTAL CELLS COUNTED 100
[2017-09-20 17:25] LABS: BAND NEUTROPHILS % (MANUAL) 19 % (3-5); METAMYELOCYTES % (MANUAL) 3 % (0)
[2017-09-20 17:26] LABS: ANISOCYTOSIS 2+; PLATELET COMMENT ADEQUATE; ROULEAUX SLIGHT; TOXIC GRANULATION SLIGHT; TOXIC VACUOLATION PRESENT
[2017-09-20 17:27] LABS: ALANINE AMINOTRANSFERASE 23 U/L (21-72); ALKALINE PHOSPHATASE 96 U/L (38-126); ANION GAP 13 (5-19); ASPARTATE AMINO TRANSFERASE 27 U/L (17-59); BILIRUBIN,DIRECT 0.3 mg/dL (0.0-0.4); BILIRUBIN,TOTAL 0.7 mg/dL (0.2-1.3); BLOOD UREA NITROGEN 32 mg/dL (7-20); CALCIUM 10.3 mg/dL (8.4-10.2); CARBON DIOXIDE 28 mmol/L (22-30); CHLORIDE 105 mmol/L (98-107); GLUCOSE 212 mg/dL (75-110); POTASSIUM 4.2 mmol/L (3.6-5.0); SODIUM 145.9 mmol/L (137-145); TOTAL PROTEIN 8.2 g/dL (6.3-8.2)
--- NOTE | 2017-09-20 17:29 | RADIOLOGY REPORT (SQ) ---
EXAM DESCRIPTION: CHEST SINGLE VIEW COMPLETED DATE/TIME: 09/20/2017 5:10 pm REASON FOR STUDY: t2 sepsis protocol/post intubation COMPARISON: 04/08/2017 EXAM PARAMETERS: NUMBER OF VIEWS: One view. TECHNIQUE: Single frontal radiographic view of the chest acquired. RADIATION DOSE: NA LIMITATIONS: None. FINDINGS: LUNGS AND PLEURA: Low lung volumes results in bronchovascular crowding. No focal consolid ation, large pleural effusion, or pneumothorax are evident. MEDIASTINUM AND HILAR STRUCTURES: No masses. Contour normal. HEART AND VASCULAR STRUCTURES: Heart normal in size. Normal vasculature. BONES: No acute findings. HARDWARE: An endotracheal tube terminates approximately 2 cm cranial to the sree. OTHER: No other significant finding. IMPRESSION: Endotracheal tube terminates approximately 2 cm cranial to the sree. No discrete radi ographic evidence of acute pulmonary abnormality. TECHNICAL DOCUMENTATION: JOB ID: [id number] [employer]- All Rights Reserved
[2017-09-20 17:37] LABS: CREATINE KINASE MB 1.18 ng/mL (<4.55)
[2017-09-20 17:41] LABS: TROPONIN I 0.062 ng/mL
[2017-09-20] MEDS ORDERED: ASPIRIN 300 MG SUPP, RECTAL PR ONE (17:41)
[2017-09-20 17:49] LABS: APPEARANCE,URINE CLOUDY; BILIRUBIN,URINE NEGATIVE (NEGATIVE); COLOR,URINE YELLOW; GLUCOSE, URINE 50 mg/dL (NEGATIVE); KETONES,URINE NEGATIVE (NEGATIVE); LEUKOCYTE ESTERASE,URINE LARGE (NEGATIVE); NITRITE,URINE NEGATIVE (NEGATIVE); PROTEIN,URINE 100 mg/dL (NEGATIVE); URINE SPECIFIC GRAVITY 1.029; UROBILINOGEN,URINE NEGATIVE mg/dL (<2.0)
--- NOTE | 2017-09-20 18:14 | RADIOLOGY REPORT (SQ) ---
EXAM DESCRIPTION: CT HEAD WITHOUT COMPLETED DATE/TIME: 09/20/2017 6:05 pm REASON FOR STUDY: AMS, seizure COMPARISON: 03/19/2017 TECHNIQUE: Axial images acquired through the brain without intravenous contrast. Images reviewed wi th bone, brain and subdural windows. Images stored on PACS. All CT scanners at this facility use dose modulation, iterative reconstruction, and/or weight based d osing when appropriate to reduce radiation dose to as low as reasonably achievable (ALARA). [facility]: Dose Right [facility]: CareDose [facility]: Dose Right [facility]: Teradose 4D [facility]: Smart Embark RADIATION DOSE: CT Rad equipment meets quality standard of care and radiation dose reduction techniq ues were employed. CTDIvol: 64.6 mGy. DLP: 1163 mGy-cm.mGy. LIMITATIONS: None. FINDINGS: VENTRICLES: Prominent. CEREBRUM: No masses. No hemorrhage. No midline shift. Geographic encephalomalacia consistent with a remote left parieto-occipital infarct. This is seen on a background of chronic microvascular and a ge-related involutional changes. No evidence for acute infarction. CEREBELLUM: No masses. No hemorrhage. No alteration of density. No evidence for acute infarction. EXTRAAXIAL SPACES: Age-related involutional change. No fluid collections. No masses. ORBITS AND GLOBE: No intra- or extraconal masses. Normal contour of globe without masses. CALVARIUM: No fracture. PARANASAL SINUSES: No fluid or mucosal thickening. SOFT TISSUES: No mass or hematoma. OTHER: No other significant finding. IMPRESSION: Stable CT appearance of the brain demonstrating left parieto-occipital encephalomalacia. Background of chronic microvascular and age-related involutional changes. No acute findings. EVIDENCE OF ACUTE STROKE: NO. TECHNICAL DOCUMENTATION: JOB ID: [id number] Quality ID # [id number]: Final reports with documentation of one or more dose reduction techniques (e.g., Au tomated exposure control, adjustment of the mA and/or kV according to patient size, use of iterative reconstruction technique) 2010 [employer]- All Rights Reserved
[2017-09-20] MEDS ORDERED: VANCOMYCIN HCL INJ 1000 MG VIAL IV ONE (18:26)
[2017-09-20 18:37] LABS: ARTERIAL BLOOD BASE EXCESS -1.9 mmol/L; ARTERIAL BLOOD FIO2 50%; ARTERIAL BLOOD H2CO3 1.44 mmol/L (1.05-1.35); ARTERIAL BLOOD HCO3 24.5 mmol/L (20-26); ARTERIAL BLOOD O2 SATURATION 94.9 % (94-98); ARTERIAL BLOOD PCO2 47.9 mmHg (35-45); ARTERIAL BLOOD PH 7.33 (7.35-7.45)
[2017-09-20] MEDS ORDERED: LORAZEPAM INJ 2 MG/1 ML VIAL IV ONE (18:44)
[2017-09-20] MEDS ORDERED: PROPOFOL 100 ML IV PRN (18:45)
[2017-09-20] MEDS ORDERED: NOREPINEPHRINE BITARTRATE INJ/PF 4 MG/4 ML SDV IV ONE (18:53)
[2017-09-20] MEDS ORDERED: DEXTROSE 5%-WATER 250 ML with NOREPINEPHRINE BITARTRATE 4 MG IV PRN ×2 (19:12)
[2017-09-20] MEDS ORDERED: GLUCAGON,HUMAN RECOMB 1 MG INJ IM PRN (21:12)
[2017-09-20] MEDS ORDERED: GLUCAGON,HUMAN RECOMB 1 MG INJ SUBCUT PRN (21:12)
[2017-09-20] MEDS ORDERED: DEXTROSE 50%-WATER 25 GM/50 ML DISP.SYRIN IV PRN ×4 (21:12)
[2017-09-20] MEDS ORDERED: DEXTROSE 40% GEL 15 GM TUBE PO PRN ×4 (21:12)
[2017-09-20] MEDS ORDERED: VANCOMYCIN HCL 0 MG in DEXTROSE 5%-WATER 250 ML IV NR (21:15)
--- NOTE | 2017-09-20 21:39 | PDOC H&P ---
History of Present Illness Admission Date/PCP: 09/20/17 19:48 MARGARITA ZARATE MD Patient complains of: Difficulty breathing History of Present Illness: THAD JOY is a 76 year old male who was in his normal state of health until this morning. He may have vomited and aspirated. His was notified by the facility that he had been vomiting when she arrived he was having trouble breathing. EMS was called and he was taken to the emergency room. Here he was found to be in acute respiratory failure and intubated. He was also found to be septic. The antibiotics were initiated after fluid resuscitation. Patient is transferred to our care. Past Medical History Cardiac Medical History: Reports: Myocardial Infarction, Hyperlipidema, Hypertension Pulmonary Medical History: Reports: Chronic Obstructive Pulmonary Disease (COPD) , Pneumonia Neurological Medical History: Reports: Ischemic CVA, Seizures Endocrine Medical History: Reports: Diabetes Mellitus Type 2 Denies: Hyperthyroidism, Hypothyroidism GI Medical History: Reports: Gastroesophageal Reflux Disease - PEG tube post CVA Denies: Cirrhosis, Hepatitis Psychiatric Medical History: Reports: Dementia, Depression Hematology: Reports: Anemia Past Surgical History Past Surgical History: Reports: Orthopedic Surgery - Right knee surgery. 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 . she expresses that he wishes to be full code, and she concurs with this Family History Family History: Other Parental Family History Reviewed: No Children Family History Reviewed: No Sibling(s) Family History Reviewed.: No - Patient intubated and sedated Medication/Allergy Home Medications: Acetaminophen [Tylenol] 650 mg PEG Q8HP PRN 03/19/17 Ascorbic Acid [Vitamin C 500 mg Tablet] 500 mg PEG DAILY 03/19/17 Cranberry Fruit Extract [Cranberry 200 mg Capsule] 400 mg PEG DAILY 03/19/17 Famotidine [Pepcid 20 mg Tablet] 20 mg PEG Q12 03/19/17 Guaifenesin [Siltussin SA] 15 ml PEG Q6 03/19/17 Insulin Glargine,Hum.rec.anlog [Lantus Insulin 100 Unit/1 ml 10 ml] 24 unit SUBCUT QHS 03/19/17 Ipratropium/Albuterol Sulfate [Duoneb 3 ml Ampul] 3 ml NEB RTQ6HP PRN 03/19/17 Isosorb Dinit/Hydralazine HCl [Bidil 20-37.5 mg Tablet] 1 tab PEG Q8 03/19/17 Lactulose [Cephulac Syrup 20 gm/30 ml Udcup] 20 gm PEG BID 03/19/17 Levetiracetam [Keppra] 750 mg PEG Q12 03/19/17 Metoprolol Tartrate [Lopressor 25 mg Tablet] 12.5 mg PEG Q12 03/19/17 Nitroglycerin [Nitrostat] 0.4 mg SL Q5MP PRN 03/19/17 Polyethylene Glycol 3350 [Miralax Powder 17 gm/Packet] 1 packet PEG DAILY Zinc Sulfate [Zinc-220 Capsule] 220 mg PEG DAILY 03/19/17 Insulin Aspart [Novolog Insulin 100 Unit/1 ml 10 ml] 0 unit SUBCUT .SLD SCALE # 10 ml 03/21/17 Levofloxacin [Levaquin 750 mg Tablet] 750 mg PEG DAILY 21 Days tablet 03/21/17 Sulfamethoxazole/Trimethoprim [Septra Susp 800-160 mg/20 ml] 20 ml PO BID 21 Days udc 03/21/17 Sulfamethoxazole/Trimethoprim [Bactrim Ds Tablet] 1 each PEG BID #14 tablet Allergies/Adverse Reactions: divalproex sodium [From Depakote] Allergy (Verified 01/17/17 17:13) oxycodone [Oxycodone] Adverse Reaction (Intermediate, Verified 01/12/17 19:24) agitation simvastatin [From Zocor] Adverse Reaction (Unknown, Verified 01/12/17 19:24) dysarthria Review of Systems ROS unobtainable: Due to endotracheal tube, Due to mental status Physical Exam Vital Signs: Temp Pulse Resp BP Pulse Ox 17 131/77 H 100 09/20/17 20:41 09/20/17 20:41 09/20/17 20:35 General appearance: PRESENT: no acute distress, other - Intubated and sedated Head exam: PRESENT: atraumatic, normocephalic Eye exam: PRESENT: PERRLA Ear exam: PRESENT: normal external ear exam Neck exam: ABSENT: carotid bruit, JVD Respiratory exam: PRESENT: clear to auscultation yokasta. ABSENT: accessory muscle use Cardiovascular exam: PRESENT: RRR GI/Abdominal exam: PRESENT: diminished bowel sounds, other - PEG tube present Rectal exam: PRESENT: deferred Gentrourinary exam: PRESENT: indwelling catheter Extremities exam: ABSENT: pedal edema Musculoskeletal exam: PRESENT: normal inspection Neurological exam: PRESENT: other - Patient paralyzed and on respirator Skin exam: PRESENT: dry, intact, warm. ABSENT: cyanosis, rash Results Laboratory Results: 09/20/17 20:50 Lactic Acid 2.6 H 09/20/17 09/20/17 09/20/17 16:45 16:45 16:45 WBC 24.3 H Hgb 16.2 Hct 49.4 Plt Count 166 PT 15.1 INR 1.11 ABG pH ABG pCO2 ABG pO2 FiO2 Sodium 145.9 H Potassium 4.2 Chloride 105 Carbon Dioxide 28 BUN 32 H Creatinine 0.71 Glucose 212 H Lactic Acid Troponin I NT-Pro-B Natriuret Pep Ur Leukocyte Esterase Urine WBC (Auto) Urine RBC (Auto) Urine WBC Clumps 09/20/17 09/20/17 09/20/17 16:45 16:45 17:00 WBC Hgb Hct Plt Count PT INR ABG pH ABG pCO2 ABG pO2 FiO2 Sodium Potassium Chloride Carbon Dioxide BUN Creatinine Glucose Lactic Acid 2.9 H Troponin I 0.062 NT-Pro-B Natriuret Pep 1760 H Ur Leukocyte Esterase LARGE H Urine WBC (Auto) >182 Urine RBC (Auto) 133 Urine WBC Clumps MOD 09/20/17 09/20/17 18:14 20:50 WBC Hgb Hct Plt Count PT INR ABG pH 7.33 L ABG pCO2 47.9 H ABG pO2 80.0 FiO2 50% Sodium Potassium Chloride Carbon Dioxide BUN Creatinine Glucose Lactic Acid 2.6 H Troponin I NT-Pro-B Natriuret Pep Ur Leukocyte Esterase Urine WBC (Auto) Urine RBC (Auto) Urine WBC Clumps Impressions: Chest X-Ray 09/20/17 16:50 IMPRESSION: Endotracheal tube terminates approximately 2 cm cranial to the sree. No discrete radiographic evidence of acute pulmonary abnormality. Head CT 09/20/17 16:54 IMPRESSION: Stable CT appearance of the brain demonstrating left parieto- occipital encephalomalacia. Background of chronic microvascular and age- related involutional changes. No acute findings. EVIDENCE OF ACUTE STROKE: NO. Assessment & Plan - Diagnosis (1) Sepsis Qualifiers: Sepsis type: sepsis due to unspecified organism Qualified Code(s): A41.9 - Sepsis, unspecified organism Is this a current diagnosis for this admission?: Yes (2) DM2 (diabetes mellitus, type 2) Qualifiers: Diabetes mellitus complication status: with unspecified complications Diabetes mellitus watermaster insulin use: with shelter use Qualified Code(s) : E11.8 - Type 2 diabetes mellitus with unspecified complications; Z79.4 - longterm (current) use of insulin; Z79.4 - watermelon inspector (current) use of insulin; Z79.4 - longterm (current) use of insulin; Z79.4 - longterm (current) use of insulin Is this a current diagnosis for this admission?: Yes (3) Respiratory failure Qualifiers: Chronicity: acute Respiratory failure complication: unspecified whether with hypoxia or hypercapnia Qualified Code(s): J96.00 - Acute respiratory failure, unspecified whether with hypoxia or hypercapnia Is this a current diagnosis for this admission?: Yes (4) History of stroke Is this a current diagnosis for this admission?: Yes (5) UTI (urinary tract infection) due to urinary indwelling Vazquez catheter Qualifiers: Indwelling urinary catheter type: indwelling urethral catheter Encounter type: initial encounter Qualified Code(s): T83.511A - Infection and inflammatory reaction due to indwelling urethral catheter, initial encounter Is this a current diagnosis for this admission?: Yes (6) G tube feedings Is this a current diagnosis for this admission?: Yes (7) Seizure disorder Is this a current diagnosis for this admission?: Yes (8) Sepsis Qualifiers: Sepsis type: sepsis due to unspecified organism Qualified Code(s): A41.9 - Sepsis, unspecified organism Is this a current diagnosis for this admission?: Yes (9) Full code status Is this a current diagnosis for this admission?: Yes - Time Time Spent: 30 to 50 Minutes - Inpatient Certification Based on my medical assessment, after consideration of the patient's comorbidities, presenting symptoms, or acuity I expect that the services needed warrant INPATIENT care.: Yes I certify that my determination is in accordance with my understanding of Medicare's requirements for reasonable and necessary INPATIENT services [42 CFR 412.3e].: Yes Medical Necessity: Significant Comorbidiites Make Outpatient Treatment Too Risky , Risk of Complication if Not Cared For in Hospital, Other - Mechanical ventilation - Plan Summary Plan Summary: Patient has been started on antibiotics. We will continue Empiric antibiotics as per hospital protocol for the treatment of sepsis. Patient will be maintained on mechanical ventilation Patient will be given pressor support if warranted; meanwhile will have volume resuscitation. DVT prophylaxis with low molecular weight heparin Patient will receive anticonvulsants intravenously Sliding scale insulin Enteral nutrition via PEG starting tomorrow Anticipated length of stay is greater than 2 midnights
[2017-09-20] MEDS ORDERED: NORMAL SALINE 1000 ML 1,000 ML IV ONE (21:57)
[2017-09-20] MEDS ORDERED: AZTREONAM INJ 1 GM VIAL IV SCH (22:00)
--- NOTE | 2017-09-20 22:23 | Operative Report ---
Operative Report DATE OF SURGERY: 09/20/17 PREOPERATIVE DIAGNOSIS: Need for central venous catheter access in a critically ill patient POSTOPERATIVE DIAGNOSIS: Same as preop diagnosis OPERATION: Placement of right subclavian vein three lumen central venous catheter SURGEON: AGNES GARDNER ANESTHESIA: Local TISSUE REMOVED OR ALTERED: None COMPLICATIONS: None ESTIMATED BLOOD LOSS: None PROCEDURE: Patient was appropriately identified. Timeout was taken to identify the patient procedure. The right chest wall and neck were prepped and draped in a sterile manner. Lidocaine 1% without epinephrine was instilled into the area below the clavicle. Finder needle was used to locate the subclavian vein. Vein was then accessed with a larger needle through which a guidewire was placed. Placement of a guidewire because caused transient ectopy. Cutaneous tissues were dilated with the dilator and the catheter was placed over the guidewire without difficulty. Catheter was sutured into place and the bio guard was placed. A bandage was applied. Chest x-ray was performed and showed catheter in good placement in the distal SVC and no pneumothorax. Procedure was discussed with the family.
--- NOTE | 2017-09-20 22:24 | RADIOLOGY REPORT (SQ) ---
EXAM DESCRIPTION: CHEST SINGLE VIEW COMPLETED DATE/TIME: 09/20/2017 10:14 pm REASON FOR STUDY: CENTRAL LINE PLACEMENT COMPARISON: 09/20/2017 EXAM PARAMETERS: NUMBER OF VIEWS: One view. TECHNIQUE: Single frontal radiographic view of the chest acquired. RADIATION DOSE: NA LIMITATIONS: None. FINDINGS: LUNGS AND PLEURA: Increased central vascular prominence. No focal consolidation. No pneu mothorax. MEDIASTINUM AND HILAR STRUCTURES: Stable. HEART AND VASCULAR STRUCTURES: Stable. BONES: No acute findings. HARDWARE: Interval placement of a right subclavian central vascular access catheter which terminates in the region of the superior vena cava. Stable position and appearance of an endotracheal tube. OTHER: No other significant finding. IMPRESSION: Interval placement of a right subclavian central vascular access catheter without eviden ce of complication. Stable ETT. Slightly increased central vascular prominence in this short interv al may be related to IV fluid hydration versus differences in technique. TECHNICAL DOCUMENTATION: JOB ID: [id number] [employer]- All Rights Reserved
[2017-09-20 23:05] LABS: ARTERIAL BLOOD BASE EXCESS 1.9 mmol/L; ARTERIAL BLOOD H2CO3 1.27 mmol/L (1.05-1.35); ARTERIAL BLOOD HCO3 26.6 mmol/L (20-26); ARTERIAL BLOOD O2 SATURATION 95.8 % (94-98); ARTERIAL BLOOD PCO2 42.2 mmHg (35-45); ARTERIAL BLOOD PH 7.42 (7.35-7.45); ARTERIAL BLOOD PO2 78.4 mmHg (80-100); ARTERIAL BLOOD TOTAL CO2 27.9 mmol/L (23-27)
[2017-09-20 23:06] LABS: ARTERIAL BLOOD FIO2 50%
[2017-09-20] MEDS: RINGERS SOLUTION,LACTATED 1,000 ML IV PRN (23:32)
[2017-09-21] MEDS: PANTOPRAZOLE SODIUM 40 MG VIAL IV SCH ×3 (00:29→22:40)
[2017-09-21] MEDS: PROPOFOL 100 ML IV PRN ×3 (00:45→22:40)
[2017-09-21] MEDS ORDERED: LEVETIRACETAM INJ/PF 500 MG/5 ML SDV IV ONE (01:15)
[2017-09-21] MEDS ORDERED: AZTREONAM INJ 1 GM VIAL ONE (01:16)
[2017-09-21] MEDS: LEVETIRACETAM 750 MG in NORMAL SALINE 100 ML IV SCH ×3 (01:27→22:40)
[2017-09-21] MEDS: AZTREONAM 1 GM in DEXTROSE 5%-WATER 50 ML IV SCH ×4 (01:34→22:43)
[2017-09-21 06:12] LABS: ABSOLUTE EOSINOPHILS # (AUTO) 0.1 10^3/uL (0.0-0.6); ABSOLUTE LYMPHOCYTES (AUTO) 0.9 10^3/uL (0.5-4.7); ABSOLUTE MONOCYTES (AUTO) 0.9 10^3/uL (0.1-1.4); ABSOLUTE NEUT (AUTO) 16.1 10^3/uL (1.7-8.2); BASOPHILS % (AUTO) 0.1 % (0-2); EOSINOPHILS % (AUTO) 0.4 % (0-6); INTERNATIONAL RATION (INR) 1.31; LYMPHOCYTES % (AUTO) 5.1 % (13-45); MEAN CORPUSCULAR HEMOGLOBIN 28.8 pg (27.0-33.4); MEAN CORPUSCULAR HGB CONC 32.2 g/dL (32.0-36.0); MEAN CORPUSCULAR VOLUME 89 fl (80-97); MONOCYTES % (AUTO) 4.9 % (3-13); PLATELET COUNT 139 10^3/uL (150-450); PROTHROMBIN TIME 17.1 SEC (11.4-15.4); RED BLOOD COUNT 4.81 10^6/uL (4.35-5.55); RED CELL DISTRIBUTION WIDTH 17.4 % (11.5-14.0); SEGMENTED NEUTROPHILS % (AUTO) 89.5 % (42-78); TOTAL CELLS COUNTED % (AUTO) 100 %
[2017-09-21 06:13] LABS: PARTIAL THROMBOPLASTIN TIME 40.5 SEC (23.5-35.8)
[2017-09-21 06:14] LABS: HEMOGLOBIN 13.9 g/dL (13.5-17.0)
[2017-09-21 06:25] LABS: ARTERIAL BLOOD BASE EXCESS 2.5 mmol/L; ARTERIAL BLOOD H2CO3 1.27 mmol/L (1.05-1.35); ARTERIAL BLOOD HCO3 27.1 mmol/L (20-26); ARTERIAL BLOOD PCO2 42.1 mmHg (35-45); ARTERIAL BLOOD PH 7.43 (7.35-7.45); ARTERIAL BLOOD PO2 72.8 mmHg (80-100); ARTERIAL BLOOD TOTAL CO2 28.4 mmol/L (23-27)
[2017-09-21 06:36] LABS: ALANINE AMINOTRANSFERASE 25 U/L (21-72); ALBUMIN 2.8 g/dL (3.5-5.0); ALKALINE PHOSPHATASE 76 U/L (38-126); ANION GAP 7 (5-19); ASPARTATE AMINO TRANSFERASE 20 U/L (17-59); BILIRUBIN,DIRECT 0.2 mg/dL (0.0-0.4); BILIRUBIN,TOTAL 0.5 mg/dL (0.2-1.3); BLOOD UREA NITROGEN 27 mg/dL (7-20); CALCIUM 9.1 mg/dL (8.4-10.2); CARBON DIOXIDE 27 mmol/L (22-30); CHLORIDE 108 mmol/L (98-107); GLUCOSE 150 mg/dL (75-110); PHOSPHORUS 1.8 mg/dL (2.5-4.5); POTASSIUM 3.3 mmol/L (3.6-5.0); SODIUM 142.1 mmol/L (137-145); TOTAL PROTEIN 6.2 g/dL (6.3-8.2)
--- NOTE | 2017-09-21 06:43 | RADIOLOGY REPORT (SQ) ---
EXAM DESCRIPTION: CHEST SINGLE VIEW CLINICAL HISTORY: resp failure COMPARISON: 09/20/2017 FINDINGS: Single frontal view of the chest. Endotracheal tube with tip below the clavicles. Right IJ central venous catheter with tip in the SVC. Low lung volumes. Perihilar and left basilar opacities may be related to vascular crowding or atelectasis. No pneumothorax. Leads overlie the chest. No new osseous abnormalities. Upper abdominal soft tissues are unremarkable. IMPRESSION: 1. Stable appearance of the chest.
[2017-09-21 07:01] LABS: ARTERIAL BLOOD FIO2 50%
[2017-09-21] MEDS: RINGERS SOLUTION,LACTATED 1,000 ML IV PRN (10:47)
[2017-09-21] MEDS: ENOXAPARIN SODIUM INJ 40 MG/0.4 ML DISP.SYRIN SUBCUT SCH (10:49)
[2017-09-21] MEDS ORDERED: VANCOMYCIN HCL 1,250 MG in DEXTROSE 5%-WATER 250 ML IV ONE (11:30)
--- NOTE | 2017-09-21 11:58 | EKG REPORT ---
SEVERITY:- BORDERLINE ECG - SINUS RHYTHM BORDERLINE RIGHT AXIS DEVIATION BORDERLINE PROLONGED QT INTERVAL : Confirmed by: Dahlia Oliver MD 21-Sep-2017 11:57:34
[2017-09-21] MEDS: ACETAMINOPHEN 650 MG SUPP.RECT PR PRN (17:22)
--- NOTE | 2017-09-21 18:46 | PDOC PROGRESS REPORT ---
Subjective Progress Note for:: 09/21/17 Subjective:: Patient who presented with difficulty breathing secondary to aspiration. Patient is currently intubated sedated and on pressors. Reason For Visit: SEPSIS, RESP FAILURE Physical Exam Vital Signs: Temp Pulse Resp BP Pulse Ox 99.9 F 81 15 132/76 H 92 09/21/17 13:53 09/21/17 09:57 09/21/17 13:53 09/21/17 13:53 09/21/17 15:50 Intake & Output 09/20/17 09/21/17 09/22/17 06:59 06:59 06:59 Intake Total 2669 Output Total 430 225 Balance 2239 -225 Weight 84.6 kg 84.6 kg General appearance: PRESENT: no acute distress, well-developed, well-nourished Head exam: PRESENT: normocephalic Eye exam: PRESENT: other - Point pupils. ABSENT: scleral icterus Ear exam: PRESENT: normal external ear exam Mouth exam: PRESENT: other - ET tube in place Neck exam: ABSENT: carotid bruit, JVD, lymphadenopathy, thyromegaly Respiratory exam: PRESENT: decreased breath sounds. ABSENT: rales, rhonchi, wheezes Cardiovascular exam: PRESENT: RRR. ABSENT: diastolic murmur, rubs, systolic murmur Pulses: PRESENT: normal dorsalis pedis pul Vascular exam: PRESENT: normal capillary refill GI/Abdominal exam: PRESENT: normal bowel sounds, soft. ABSENT: distended, guarding, mass, organolmegaly, rebound, tenderness Rectal exam: PRESENT: deferred Extremities exam: PRESENT: full ROM, other - Contractures of the hand. Patient holding rags. ABSENT: calf tenderness, clubbing, pedal edema Neurological exam: PRESENT: other - intubated and sedated. ABSENT: motor sensory deficit Psychiatric exam: ABSENT: homicidal ideation, suicidal ideation Skin exam: PRESENT: dry, intact, warm. ABSENT: cyanosis, rash Results Laboratory Results: 09/21/17 05:55 09/21/17 05:55 09/20/17 09/20/17 09/21/17 20:50 22:45 03:15 WBC RBC Hgb Hct MCV MCH MCHC RDW Plt Count Seg Neutrophils % Lymphocytes % Monocytes % Eosinophils % Basophils % Absolute Neutrophils Absolute Lymphocytes Absolute Monocytes Absolute Eosinophils Absolute Basophils Carbonic Acid 1.27 HCO3/H2CO3 Ratio 20:1 ABG pH 7.42 ABG pCO2 42.2 ABG pO2 78.4 L ABG HCO3 26.6 H ABG O2 Saturation 95.8 ABG Base Excess 1.9 FiO2 50% Sodium Potassium Chloride Carbon Dioxide Anion Gap BUN Creatinine Est GFR ( Amer) Est GFR (Non-Af Amer) Glucose Lactic Acid 2.6 H 1.8 Calcium Phosphorus Magnesium Total Bilirubin AST ALT Alkaline Phosphatase Total Protein Albumin 09/21/17 09/21/17 09/21/17 05:55 05:55 06:18 WBC 18.0 H RBC 4.81 Hgb 13.9 D Hct 43.0 MCV 89 MCH 28.8 MCHC 32.2 RDW 17.4 H Plt Count 139 L Seg Neutrophils % 89.5 H Lymphocytes % 5.1 L Monocytes % 4.9 Eosinophils % 0.4 Basophils % 0.1 Absolute Neutrophils 16.1 H Absolute Lymphocytes 0.9 Absolute Monocytes 0.9 Absolute Eosinophils 0.1 Absolute Basophils 0.0 Carbonic Acid 1.27 HCO3/H2CO3 Ratio 21:1 ABG pH 7.43 ABG pCO2 42.1 ABG pO2 72.8 L ABG HCO3 27.1 H ABG O2 Saturation 95.0 ABG Base Excess 2.5 FiO2 50% Sodium 142.1 Potassium 3.3 L Chloride 108 H Carbon Dioxide 27 Anion Gap 7 BUN 27 H Creatinine 0.64 Est GFR ( Amer) > 60 Est GFR (Non-Af Amer) > 60 Glucose 150 H Lactic Acid Calcium 9.1 Phosphorus 1.8 L Magnesium 2.0 Total Bilirubin 0.5 AST 20 ALT 25 Alkaline Phosphatase 76 Total Protein 6.2 L Albumin 2.8 L Impressions: Head CT 09/20/17 16:54 IMPRESSION: Stable CT appearance of the brain demonstrating left parieto- occipital encephalomalacia. Background of chronic microvascular and age- related involutional changes. No acute findings. EVIDENCE OF ACUTE STROKE: NO. Chest X-Ray 09/21/17 06:00 IMPRESSION: 1. Stable appearance of the chest. Assessment & Plan - Diagnosis (1) Sepsis Qualifiers: Sepsis type: sepsis due to unspecified organism Qualified Code(s): A41.9 - Sepsis, unspecified organism Is this a current diagnosis for this admission?: Yes Plan: Patient presented on admission with fever tachycardia hypotension and what looks to be a pneumonia following episode of vomiting with aspiration. Was found to be in shock and was started on levophed. Patient also with Chau positive cocci bacteremia. Patient on aztreonam and vancomycin. Patient leukocytosis improving. Still febrile. Will continue to monitor. (2) Aspiration pneumonia Qualifiers: Aspiration pneumonia type: unspecified Laterality: right Lung location: lower lobe of lung Qualified Code(s): J69.0 - Pneumonitis due to inhalation of food and vomit Is this a current diagnosis for this admission?: Yes Plan: Patient on aztreonam and vancomycin. White count trending down. Continue to monitor serial chest x-rays. (3) Gram-positive cocci bacteremia Is this a current diagnosis for this admission?: Yes Plan: Patient blood cultures positive for gram-positive cocci in pair bottles. Patient currently on vancomycin. Will repeat blood cultures in the morning. (4) Respiratory failure Qualifiers: Chronicity: acute Respiratory failure complication: unspecified whether with hypoxia or hypercapnia Qualified Code(s): J96.00 - Acute respiratory failure, unspecified whether with hypoxia or hypercapnia Is this a current diagnosis for this admission?: Yes Plan: Patient currently intubated and sedated. Continue serial chest X rays and ABG. Dr. Dhaval hoang. (5) History of stroke Is this a current diagnosis for this admission?: Yes Plan: Continue supportive care. (6) G tube feedings Is this a current diagnosis for this admission?: Yes Plan: Resume when appropriate. (7) Seizure disorder Is this a current diagnosis for this admission?: Yes Plan: Continue keppra. (8) DM2 (diabetes mellitus, type 2) Qualifiers: Diabetes mellitus complication status: with unspecified complications Diabetes mellitus terminal gauger insulin use: with terminal gauger use Qualified Code(s) : E11.8 - Type 2 diabetes mellitus with unspecified complications; Z79.4 - assistant terminal manager (current) use of insulin; Z79.4 - assistant terminal manager (current) use of insulin; Z79.4 - assistant terminal manager (current) use of insulin; Z79.4 - assistant terminal manager (current) use of insulin Is this a current diagnosis for this admission?: Yes Plan: Continue sliding scale insulin. - Time Time Spent with patient: 15-24 minutes - Inpatient Certification Medical Necessity: Need for IV Antibiotics - Patient is currently in ICU and intubated and sedated on pressors. Patient clearly is not appropriate for discharge at this time. Patient require close monitoring until improves.
--- NOTE | 2017-09-21 19:50 | PDOC CONSULTATION ---
Consultation Consult Date: 09/20/17 Attending physician:: PAUL LANCE Consult reason:: resp failure History of Present Illness Admission Date/PCP: 09/20/17 19:48 MARGARITA ZARATE MD History of Present Illness: all information from chart as patient is intubated and sedated:THAD JOY is a 76 year old male who was in his normal state of health until this morning. He may have vomited and aspirated. His was notified by the facility that he had been vomiting when she arrived he was having trouble breathing. EMS was called and he was taken to the emergency room. Here he was found to be in acute respiratory failure and intubated. He was also found to be septic. The antibiotics were initiated after fluid resuscitation. . Past Medical History Cardiac Medical History: Reports: Myocardial Infarction, Hyperlipidema, Hypertension Pulmonary Medical History: Reports: Chronic Obstructive Pulmonary Disease (COPD) , Pneumonia Neurological Medical History: Reports: Ischemic CVA, Seizures Endocrine Medical History: Reports: Diabetes Mellitus Type 1, Diabetes Mellitus Type 2 Denies: Hyperthyroidism, Hypothyroidism GI Medical History: Reports: Gastroesophageal Reflux Disease - PEG tube post CVA Denies: Cirrhosis, Hepatitis Psychiatric Medical History: Reports: Dementia, Depression Hematology: Reports: Anemia Past Surgical History Past Surgical History: Reports: Orthopedic Surgery - Right knee surgery. Titanium jelani, left femur after accident., Other - PEG tube placed Social History Information Source: [facility] Records Lives with: [facility] Smoking Status: Former Smoker Frequency of Alcohol Use: None Hx Recreational Drug Use: No Drugs: None Hx Prescription Drug Abuse: No - Advance Directive Resuscitation Status: Full Code Family History Family History: Other Medication/Allergy Home Medications: Cranberry Fruit Extract [Cranberry 500 mg Capsule] 500 mg PO DAILY 09/21/17 Famotidine [Pepcid 20 mg Tablet] 20 mg PO BID 09/21/17 Guaifenesin [Siltussin SA] 15 ml PO Q6 09/21/17 Insulin Lispro [Humalog Insulin (Lispro) 100 unit/mL] 0 units SQ .SLIDING SCALE 09/21/17 Isosorbide Dinitrate [Isordil Titradose 20 Mg Tablet] 20 mg PO Q8 09/21/17 Levetiracetam [Keppra] 750 mg PO Q12 09/21/17 Metoprolol Tartrate [Lopressor 25 mg Tablet] 25 mg PO Q12 09/21/17 Multivitamin/Iron/Folic Acid [Centrum Adults Tablet] 1 tab PO DAILY 09/21/17 Allergies/Adverse Reactions: divalproex sodium [From Depakote] Allergy (Verified 01/17/17 17:13) oxycodone [Oxycodone] Adverse Reaction (Intermediate, Verified 01/12/17 19:24) agitation simvastatin [From Zocor] Adverse Reaction (Unknown, Verified 01/12/17 19:24) dysarthria Review of Systems ROS unobtainable: Due to endotracheal tube Physical Exam Vital Signs: Temp Pulse Resp BP Pulse Ox 98.8 F 101 H 10 L 121/66 98 09/21/17 06:23 09/20/17 23:46 09/21/17 06:22 09/21/17 06:23 09/21/17 06:23 Intake & Output 09/20/17 09/21/17 09/22/17 06:59 06:59 06:59 Intake Total 2669 Output Total 430 85 Balance 2239 -85 Weight 84.6 kg General appearance: PRESENT: no acute distress, disheveled, thin Head exam: PRESENT: atraumatic Eye exam: PRESENT: conjunctiva pale. ABSENT: nystagmus, periorbital swelling, scleral icterus Mouth exam: PRESENT: dry mucosa, neck supple, tongue midline, other - ET tube Neck exam: ABSENT: carotid bruit, JVD, lymphadenopathy, thyromegaly, tracheal deviation Respiratory exam: PRESENT: crackles, decreased breath sounds, prolonged expiratory phas, rhonchi, symmetrical, unlabored, wheezes Cardiovascular exam: PRESENT: irregular rhythm Pulses: PRESENT: normal radial pulses GI/Abdominal exam: PRESENT: soft Gentrourinary exam: PRESENT: indwelling catheter Extremities exam: ABSENT: clubbing, full ROM Musculoskeletal exam: ABSENT: ambulatory, deformity, dislocation, full ROM Neurological exam: ABSENT: oriented to person Skin exam: PRESENT: dry, warm Results Laboratory Results: 09/21/17 05:55 09/21/17 05:55 09/20/17 09/20/17 09/21/17 20:50 22:45 03:15 WBC RBC Hgb Hct MCV MCH MCHC RDW Plt Count Seg Neutrophils % Lymphocytes % Monocytes % Eosinophils % Basophils % Absolute Neutrophils Absolute Lymphocytes Absolute Monocytes Absolute Eosinophils Absolute Basophils Carbonic Acid 1.27 HCO3/H2CO3 Ratio 20:1 ABG pH 7.42 ABG pCO2 42.2 ABG pO2 78.4 L ABG HCO3 26.6 H ABG O2 Saturation 95.8 ABG Base Excess 1.9 FiO2 50% Sodium Potassium Chloride Carbon Dioxide Anion Gap BUN Creatinine Est GFR ( Amer) Est GFR (Non-Af Amer) Glucose Lactic Acid 2.6 H 1.8 Calcium Phosphorus Magnesium Total Bilirubin AST ALT Alkaline Phosphatase Total Protein Albumin 09/21/17 09/21/17 09/21/17 05:55 05:55 06:18 WBC 18.0 H RBC 4.81 Hgb 13.9 D Hct 43.0 MCV 89 MCH 28.8 MCHC 32.2 RDW 17.4 H Plt Count 139 L Seg Neutrophils % 89.5 H Lymphocytes % 5.1 L Monocytes % 4.9 Eosinophils % 0.4 Basophils % 0.1 Absolute Neutrophils 16.1 H Absolute Lymphocytes 0.9 Absolute Monocytes 0.9 Absolute Eosinophils 0.1 Absolute Basophils 0.0 Carbonic Acid 1.27 HCO3/H2CO3 Ratio 21:1 ABG pH 7.43 ABG pCO2 42.1 ABG pO2 72.8 L ABG HCO3 27.1 H ABG O2 Saturation 95.0 ABG Base Excess 2.5 FiO2 50% Sodium 142.1 Potassium 3.3 L Chloride 108 H Carbon Dioxide 27 Anion Gap 7 BUN 27 H Creatinine 0.64 Est GFR ( Amer) > 60 Est GFR (Non-Af Amer) > 60 Glucose 150 H Lactic Acid Calcium 9.1 Phosphorus 1.8 L Magnesium 2.0 Total Bilirubin 0.5 AST 20 ALT 25 Alkaline Phosphatase 76 Total Protein 6.2 L Albumin 2.8 L Impressions: Head CT 09/20/17 16:54 IMPRESSION: Stable CT appearance of the brain demonstrating left parieto- occipital encephalomalacia. Background of chronic microvascular and age- related involutional changes. No acute findings. EVIDENCE OF ACUTE STROKE: NO. Chest X-Ray 09/21/17 06:00 IMPRESSION: 1. Stable appearance of the chest. Assessment & Plan - Diagnosis (1) Respiratory failure Qualifiers: Chronicity: acute Respiratory failure complication: unspecified whether with hypoxia or hypercapnia Qualified Code(s): J96.00 - Acute respiratory failure, unspecified whether with hypoxia or hypercapnia Is this a current diagnosis for this admission?: Yes Plan: support as needed (2) Sepsis Qualifiers: Sepsis type: sepsis due to unspecified organism Qualified Code(s): A41.9 - Sepsis, unspecified organism Is this a current diagnosis for this admission?: Yes Plan: gpc 2/2 blood cultures (3) Dementia Qualifiers: Dementia type: unspecified type Dementia behavioral disturbance: without behavioral disturbance Qualified Code(s): F03.90 - Unspecified dementia without behavioral disturbance Is this a current diagnosis for this admission?: Yes Plan: unchanged (4) Dysphagia Plan: predisposed to aspiration - Time Total Critical Time (Minutes): 45
[2017-09-21] MEDS: VANCOMYCIN HCL 1,250 MG in DEXTROSE 5%-WATER 250 ML IV SCH (22:44)
[2017-09-22] MEDS: RINGERS SOLUTION,LACTATED 1,000 ML IV PRN (02:34)
[2017-09-22 05:12] LABS: ARTERIAL BLOOD BASE EXCESS 3.7 mmol/L; ARTERIAL BLOOD H2CO3 1.18 mmol/L (1.05-1.35); ARTERIAL BLOOD HCO3 27.6 mmol/L (20-26); ARTERIAL BLOOD O2 SATURATION 94.6 % (94-98); ARTERIAL BLOOD PCO2 39.3 mmHg (35-45); ARTERIAL BLOOD PH 7.46 (7.35-7.45); ARTERIAL BLOOD PO2 68.1 mmHg (80-100); ARTERIAL BLOOD TOTAL CO2 28.8 mmol/L (23-27)
[2017-09-22 05:13] LABS: ARTERIAL BLOOD FIO2 35%
[2017-09-22 05:16] LABS: HEMATOCRIT 39.3 % (37.9-51.0); HEMOGLOBIN 12.8 g/dL (13.5-17.0); MEAN CORPUSCULAR HEMOGLOBIN 28.8 pg (27.0-33.4); MEAN CORPUSCULAR HGB CONC 32.5 g/dL (32.0-36.0); MEAN CORPUSCULAR VOLUME 89 fl (80-97); PLATELET COUNT 122 10^3/uL (150-450); RED BLOOD COUNT 4.43 10^6/uL (4.35-5.55); RED CELL DISTRIBUTION WIDTH 17.4 % (11.5-14.0); WHITE BLOOD COUNT 15.4 10^3/uL (4.0-10.5)
[2017-09-22 05:25] LABS: ALANINE AMINOTRANSFERASE 22 U/L (21-72); ALBUMIN 2.7 g/dL (3.5-5.0); ALKALINE PHOSPHATASE 75 U/L (38-126); ANION GAP 7 (5-19); ASPARTATE AMINO TRANSFERASE 16 U/L (17-59); BILIRUBIN,DIRECT 0.3 mg/dL (0.0-0.4); BILIRUBIN,TOTAL 0.6 mg/dL (0.2-1.3); BLOOD UREA NITROGEN 20 mg/dL (7-20); CALCIUM 8.8 mg/dL (8.4-10.2); CARBON DIOXIDE 29 mmol/L (22-30); CHLORIDE 107 mmol/L (98-107); GLUCOSE 111 mg/dL (75-110); POTASSIUM 3.3 mmol/L (3.6-5.0); SODIUM 142.6 mmol/L (137-145); TRIGLYCERIDES 104 mg/dL (<150)
[2017-09-22 06:12] LABS: ABSOLUTE LYMPHOCYTES# (MANUAL) 0.6 10^3/uL (0.5-4.7); ABSOLUTE MONOCYTES # (MANUAL) 0.8 10^3/uL (0.1-1.4); ABSOLUTE NEUTROPHILS# (MANUAL) 13.7 10^3/uL (1.7-8.2); BAND NEUTROPHILS % (MANUAL) 3 % (3-5); BASOPHILS % (MANUAL) 0 % (0-2); EOSINOPHILS % (MANUAL) 2 % (0-6); LYMPHOCYTES % (MANUAL) 4 % (13-45); MONOCYTES % (MANUAL) 5 % (3-13); SEGMENTED NEUTROPHILS % (MAN) 86 % (42-78); TOTAL CELLS COUNTED 100
[2017-09-22 06:15] LABS: ANISOCYTOSIS 1+; OVALOCYTES SLIGHT; POIKILOCYTOSIS SLIGHT; SCHISTOCYTES SLIGHT; TOXIC GRANULATION 1+
[2017-09-22 06:16] LABS: PLATELET COMMENT ADEQUATE; PLATELET LARGE PRESENT
--- NOTE | 2017-09-22 06:17 | RADIOLOGY REPORT (SQ) ---
EXAM DESCRIPTION: CHEST SINGLE VIEW CLINICAL HISTORY: resp failure COMPARISON: 09/21/2017 FINDINGS: Single frontal view of the chest. Endotracheal tube with tip below the clavicles. Right IJ central venous catheter with tip in the SVC. Low lung volumes. Perihilar and left basilar opacities are not significantly changed. No pneumothorax. Leads overlie the chest. No new osseous abnormalities. Upper abdominal soft tissues are unremarkable. IMPRESSION: 1. Stable appearance of the chest.
[2017-09-22] MEDS: AZTREONAM 1 GM in DEXTROSE 5%-WATER 50 ML IV SCH (06:33)
[2017-09-22] MEDS ORDERED: PHARMACY COMMUNICATION ORDER MC NR (08:00)
[2017-09-22] MEDS ORDERED: AZITHROMYCIN 250 MG TABLET NG SCH (10:00)
--- NOTE | 2017-09-22 10:21 | PDOC PROGRESS REPORT ---
Subjective Progress Note for:: 09/21/17 Subjective:: intubated Reason For Visit: SEPSIS, RESP FAILURE Physical Exam Vital Signs: Temp Pulse Resp BP Pulse Ox 98.8 F 101 H 10 L 121/66 98 09/21/17 06:23 09/20/17 23:46 09/21/17 06:22 09/21/17 06:23 09/21/17 06:23 Intake & Output 09/20/17 09/21/17 09/22/17 06:59 06:59 06:59 Intake Total 2669 Output Total 430 85 Balance 2239 -85 Weight 84.6 kg General appearance: PRESENT: no acute distress, disheveled, well-developed, well -nourished Head exam: PRESENT: atraumatic, normocephalic Eye exam: PRESENT: conjunctiva pale. ABSENT: nystagmus, periorbital swelling, scleral icterus Mouth exam: PRESENT: dry mucosa, neck supple, tongue midline, other - ET tube. ABSENT: laceration, moist Neck exam: ABSENT: carotid bruit, JVD, lymphadenopathy, thyromegaly, tracheal deviation, tracheostomy Respiratory exam: PRESENT: decreased breath sounds, prolonged expiratory phas, rales, rhonchi, symmetrical, unlabored. ABSENT: accessory muscle use, chest wall tenderness, clear to auscultation yokasta, crackles, retraction, stridor, tachypnea Cardiovascular exam: PRESENT: RRR, +S1, +S2 Pulses: PRESENT: normal radial pulses GI/Abdominal exam: PRESENT: diminished bowel sounds, soft Gentrourinary exam: PRESENT: indwelling catheter Extremities exam: ABSENT: clubbing, joint swelling Musculoskeletal exam: ABSENT: ambulatory, deformity, dislocation Neurological exam: ABSENT: alert, awake, oriented to person Skin exam: PRESENT: dry, warm Results Laboratory Results: 09/21/17 05:55 09/21/17 05:55 09/20/17 09/20/17 09/21/17 20:50 22:45 03:15 WBC RBC Hgb Hct MCV MCH MCHC RDW Plt Count Seg Neutrophils % Lymphocytes % Monocytes % Eosinophils % Basophils % Absolute Neutrophils Absolute Lymphocytes Absolute Monocytes Absolute Eosinophils Absolute Basophils Carbonic Acid 1.27 HCO3/H2CO3 Ratio 20:1 ABG pH 7.42 ABG pCO2 42.2 ABG pO2 78.4 L ABG HCO3 26.6 H ABG O2 Saturation 95.8 ABG Base Excess 1.9 FiO2 50% Sodium Potassium Chloride Carbon Dioxide Anion Gap BUN Creatinine Est GFR ( Amer) Est GFR (Non-Af Amer) Glucose Lactic Acid 2.6 H 1.8 Calcium Phosphorus Magnesium Total Bilirubin AST ALT Alkaline Phosphatase Total Protein Albumin 09/21/17 09/21/17 09/21/17 05:55 05:55 06:18 WBC 18.0 H RBC 4.81 Hgb 13.9 D Hct 43.0 MCV 89 MCH 28.8 MCHC 32.2 RDW 17.4 H Plt Count 139 L Seg Neutrophils % 89.5 H Lymphocytes % 5.1 L Monocytes % 4.9 Eosinophils % 0.4 Basophils % 0.1 Absolute Neutrophils 16.1 H Absolute Lymphocytes 0.9 Absolute Monocytes 0.9 Absolute Eosinophils 0.1 Absolute Basophils 0.0 Carbonic Acid 1.27 HCO3/H2CO3 Ratio 21:1 ABG pH 7.43 ABG pCO2 42.1 ABG pO2 72.8 L ABG HCO3 27.1 H ABG O2 Saturation 95.0 ABG Base Excess 2.5 FiO2 50% Sodium 142.1 Potassium 3.3 L Chloride 108 H Carbon Dioxide 27 Anion Gap 7 BUN 27 H Creatinine 0.64 Est GFR ( Amer) > 60 Est GFR (Non-Af Amer) > 60 Glucose 150 H Lactic Acid Calcium 9.1 Phosphorus 1.8 L Magnesium 2.0 Total Bilirubin 0.5 AST 20 ALT 25 Alkaline Phosphatase 76 Total Protein 6.2 L Albumin 2.8 L Impressions: Head CT 09/20/17 16:54 IMPRESSION: Stable CT appearance of the brain demonstrating left parieto- occipital encephalomalacia. Background of chronic microvascular and age- related involutional changes. No acute findings. EVIDENCE OF ACUTE STROKE: NO. Chest X-Ray 09/21/17 06:00 IMPRESSION: 1. Stable appearance of the chest. Assessment & Plan - Diagnosis (1) Respiratory failure Qualifiers: Chronicity: acute Respiratory failure complication: unspecified whether with hypoxia or hypercapnia Qualified Code(s): J96.00 - Acute respiratory failure, unspecified whether with hypoxia or hypercapnia Is this a current diagnosis for this admission?: Yes Plan: stable (2) Aspiration pneumonia Qualifiers: Aspiration pneumonia type: unspecified Laterality: right Lung location: lower lobe of lung Qualified Code(s): J69.0 - Pneumonitis due to inhalation of food and vomit Is this a current diagnosis for this admission?: Yes Plan: dysphagia induced (3) Dementia Qualifiers: Dementia type: unspecified type Dementia behavioral disturbance: without behavioral disturbance Qualified Code(s): F03.90 - Unspecified dementia without behavioral disturbance Is this a current diagnosis for this admission?: Yes Plan: unchanged (4) Dysphagia Plan: predisposed to aspiration - Time Total Critical Time (Minutes): 40
--- NOTE | 2017-09-22 10:22 | PDOC PROGRESS REPORT ---
Subjective Progress Note for:: 09/22/17 Subjective:: intubated Reason For Visit: SEPSIS, RESP FAILURE Physical Exam Vital Signs: Temp Pulse Resp BP Pulse Ox 98.8 F 72 14 99/59 L 98 09/22/17 08:00 09/22/17 08:00 09/22/17 08:00 09/22/17 08:00 09/22/17 09:12 Intake & Output 09/21/17 09/22/17 09/23/17 06:59 06:59 06:59 Intake Total 2669 2902 Output Total 430 735 75 Balance 2239 2167 -75 Weight 84.6 kg 87.5 kg Results Laboratory Results: 09/22/17 05:05 09/22/17 05:05 09/22/17 09/22/17 09/22/17 05:05 05:05 05:05 WBC 15.4 H RBC 4.43 Hgb 12.8 L Hct 39.3 MCV 89 MCH 28.8 MCHC 32.5 RDW 17.4 H Plt Count 122 L Seg Neutrophils % Not Reportable Lymphocytes % Not Reportable Monocytes % Not Reportable Eosinophils % Not Reportable Basophils % Not Reportable Absolute Neutrophils Not Reportable Absolute Lymphocytes Not Reportable Absolute Monocytes Not Reportable Absolute Eosinophils Not Reportable Absolute Basophils Not Reportable Carbonic Acid 1.18 HCO3/H2CO3 Ratio 23:1 ABG pH 7.46 H ABG pCO2 39.3 ABG pO2 68.1 L ABG HCO3 27.6 H ABG O2 Saturation 94.6 ABG Base Excess 3.7 FiO2 35% Sodium 142.6 Potassium 3.3 L Chloride 107 Carbon Dioxide 29 Anion Gap 7 BUN 20 Creatinine 0.62 Est GFR ( Amer) > 60 Est GFR (Non-Af Amer) > 60 Glucose 111 H Calcium 8.8 Total Bilirubin 0.6 AST 16 L ALT 22 Alkaline Phosphatase 75 Total Protein 6.0 L Albumin 2.7 L Triglycerides 104 Impressions: Head CT 09/20/17 16:54 IMPRESSION: Stable CT appearance of the brain demonstrating left parieto- occipital encephalomalacia. Background of chronic microvascular and age- related involutional changes. No acute findings. EVIDENCE OF ACUTE STROKE: NO. Chest X-Ray 09/22/17 06:00 IMPRESSION: 1. Stable appearance of the chest. Assessment & Plan - Diagnosis (1) Respiratory failure Qualifiers: Chronicity: acute Respiratory failure complication: unspecified whether with hypoxia or hypercapnia Qualified Code(s): J96.00 - Acute respiratory failure, unspecified whether with hypoxia or hypercapnia Is this a current diagnosis for this admission?: Yes Plan: sllightly improved decresed FIO 2 req (2) Aspiration pneumonia Qualifiers: Aspiration pneumonia type: unspecified Laterality: right Lung location: lower lobe of lung Qualified Code(s): J69.0 - Pneumonitis due to inhalation of food and vomit Is this a current diagnosis for this admission?: Yes Plan: dysphagia induced (3) Dementia Qualifiers: Dementia type: unspecified type Dementia behavioral disturbance: without behavioral disturbance Qualified Code(s): F03.90 - Unspecified dementia without behavioral disturbance Is this a current diagnosis for this admission?: Yes Plan: unchanged (4) Dysphagia Is this a current diagnosis for this admission?: Yes Plan: predisposed to aspiration - Time Total Critical Time (Minutes): 35
[2017-09-22] MEDS: VANCOMYCIN HCL 1,250 MG in DEXTROSE 5%-WATER 250 ML IV SCH ×2 (11:43→21:56)
[2017-09-22] MEDS: LEVETIRACETAM 750 MG in NORMAL SALINE 100 ML IV SCH ×2 (11:44→21:11)
[2017-09-22] MEDS: PANTOPRAZOLE SODIUM 40 MG VIAL IV SCH ×2 (11:46→21:12)
[2017-09-22] MEDS: ENOXAPARIN SODIUM INJ 40 MG/0.4 ML DISP.SYRIN SUBCUT SCH (11:47)
--- NOTE | 2017-09-22 12:28 | PDOC PROGRESS REPORT ---
Subjective Progress Note for:: 09/22/17 Subjective:: Unable to obtain since sedated Review of systems Unable to obtain since sedated All laboratories and significant diagnostics had been reviewed Reason For Visit: SEPSIS, RESP FAILURE Physical Exam Vital Signs: Temp Pulse Resp BP Pulse Ox 99.1 F 80 14 120/72 97 09/22/17 07:00 09/22/17 04:00 09/22/17 07:00 09/22/17 06:41 09/22/17 07:00 Intake & Output 09/21/17 09/22/17 09/23/17 06:59 06:59 06:59 Intake Total 2669 1439 Output Total 430 705 Balance 2239 734 Weight 84.6 kg 87.5 kg General appearance: PRESENT: other - sedated Head exam: PRESENT: atraumatic, normocephalic Eye exam: PRESENT: EOMI, PERRLA Ear exam: PRESENT: normal external ear exam Mouth exam: PRESENT: moist, neck supple Neck exam: ABSENT: JVD, lymphadenopathy, thyromegaly Respiratory exam: PRESENT: clear to auscultation yokasta Cardiovascular exam: PRESENT: RRR. ABSENT: diastolic murmur, systolic murmur Vascular exam: PRESENT: normal capillary refill GI/Abdominal exam: PRESENT: normal bowel sounds, soft Extremities exam: ABSENT: joint swelling, pedal edema Neurological exam: PRESENT: other - sedates Results Laboratory Results: 09/22/17 05:05 09/22/17 05:05 09/22/17 09/22/17 09/22/17 05:05 05:05 05:05 WBC 15.4 H RBC 4.43 Hgb 12.8 L Hct 39.3 MCV 89 MCH 28.8 MCHC 32.5 RDW 17.4 H Plt Count 122 L Seg Neutrophils % Not Reportable Lymphocytes % Not Reportable Monocytes % Not Reportable Eosinophils % Not Reportable Basophils % Not Reportable Absolute Neutrophils Not Reportable Absolute Lymphocytes Not Reportable Absolute Monocytes Not Reportable Absolute Eosinophils Not Reportable Absolute Basophils Not Reportable Carbonic Acid 1.18 HCO3/H2CO3 Ratio 23:1 ABG pH 7.46 H ABG pCO2 39.3 ABG pO2 68.1 L ABG HCO3 27.6 H ABG O2 Saturation 94.6 ABG Base Excess 3.7 FiO2 35% Sodium 142.6 Potassium 3.3 L Chloride 107 Carbon Dioxide 29 Anion Gap 7 BUN 20 Creatinine 0.62 Est GFR ( Amer) > 60 Est GFR (Non-Af Amer) > 60 Glucose 111 H Calcium 8.8 Total Bilirubin 0.6 AST 16 L ALT 22 Alkaline Phosphatase 75 Total Protein 6.0 L Albumin 2.7 L Triglycerides 104 Impressions: Head CT 09/20/17 16:54 IMPRESSION: Stable CT appearance of the brain demonstrating left parieto- occipital encephalomalacia. Background of chronic microvascular and age- related involutional changes. No acute findings. EVIDENCE OF ACUTE STROKE: NO. Chest X-Ray 09/22/17 06:00 IMPRESSION: 1. Stable appearance of the chest. 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; Z79.4 - half-way (current) use of insulin Is this a current diagnosis for this admission?: Yes Plan: Continue current treatment (2) Gram-positive cocci bacteremia Is this a current diagnosis for this admission?: Yes Plan: Continue current management (3) Respiratory failure Qualifiers: Chronicity: acute Respiratory failure complication: unspecified whether with hypoxia or hypercapnia Qualified Code(s): J96.00 - Acute respiratory failure, unspecified whether with hypoxia or hypercapnia Is this a current diagnosis for this admission?: Yes Plan: Dr Puentes helping with vent management (4) Sepsis Qualifiers: Sepsis type: sepsis due to unspecified organism Qualified Code(s): A41.9 - Sepsis, unspecified organism Is this a current diagnosis for this admission?: Yes Plan: Multifactorial (5) Acute encephalopathy Is this a current diagnosis for this admission?: Yes Plan: Due to septic process (6) Anemia of chronic disease Is this a current diagnosis for this admission?: Yes Plan: Trend since dropped since admission. May be a dilutional component (7) Aspiration pneumonia Qualifiers: Aspiration pneumonia type: unspecified Laterality: right Lung location: lower lobe of lung Qualified Code(s): J69.0 - Pneumonitis due to inhalation of food and vomit Is this a current diagnosis for this admission?: Yes Plan: Presentation reviewed. To place on zosyn (8) UTI (urinary tract infection) Qualifiers: Urinary tract infection type: acute cystitis Hematuria presence: with hematuria Qualified Code(s): N30.01 - Acute cystitis with hematuria Is this a current diagnosis for this admission?: Yes Plan: Urine growing gnb. Hopefully zosyn may provide coverage (9) Hypokalemia Is this a current diagnosis for this admission?: Yes Plan: Order NG tube for purpose of nutrition and replace via NG. Trend - Time Time Spent with patient: 15-24 minutes Medications reviewed and adjusted accordingly: Yes Anticipated discharge: SNF Within: Other - one week - Inpatient Certification Based on my medical assessment, after consideration of the patient's comorbidities, presenting symptoms, or acuity I expect that the services needed warrant INPATIENT care.: Yes I certify that my determination is in accordance with my understanding of Medicare's requirements for reasonable and necessary INPATIENT services [42 CFR 412.3e].: Yes Medical Necessity: Need for IV Antibiotics - vantilatory support
[2017-09-22] MEDS ORDERED: VANCOMYCIN HCL 0 MG in DEXTROSE 5%-WATER 250 ML IV NR (12:30)
[2017-09-22] MEDS ORDERED: POTASSIUM CHLORIDE 20 MEQ/15 ML UDCUP PO ONE (12:30)
[2017-09-22] MEDS: PROPOFOL 100 ML IV PRN ×2 (13:23→23:29)
[2017-09-22] MEDS: PIPERACILLIN SODIUM/TAZOBACTAM 4.5 GM in NORMAL SALINE 100 ML IV SCH ×3 (14:06→23:28)
[2017-09-22] MEDS: POTASSI CL 40 MEQ/NS 1L 1,000 ML IV PRN (14:07)
[2017-09-22 22:29] LABS: VANCOMYCIN,TROUGH 15.6 ug/mL (5.0-20.0)
[2017-09-23] MEDS: POTASSI CL 40 MEQ/NS 1L 1,000 ML IV PRN ×2 (03:53→17:51)
[2017-09-23] MEDS: PIPERACILLIN SODIUM/TAZOBACTAM 4.5 GM in NORMAL SALINE 100 ML IV SCH ×4 (05:08→23:50)
[2017-09-23 05:13] LABS: ABSOLUTE EOSINOPHILS # (AUTO) 0.6 10^3/uL (0.0-0.6); ABSOLUTE LYMPHOCYTES (AUTO) 0.7 10^3/uL (0.5-4.7); ABSOLUTE MONOCYTES (AUTO) 0.8 10^3/uL (0.1-1.4); ABSOLUTE NEUT (AUTO) 10.7 10^3/uL (1.7-8.2); BASOPHILS % (AUTO) 0.2 % (0-2); EOSINOPHILS % (AUTO) 4.9 % (0-6); HEMATOCRIT 36.7 % (37.9-51.0); HEMOGLOBIN 11.9 g/dL (13.5-17.0); LYMPHOCYTES % (AUTO) 5.8 % (13-45); MEAN CORPUSCULAR HEMOGLOBIN 28.7 pg (27.0-33.4); MEAN CORPUSCULAR HGB CONC 32.3 g/dL (32.0-36.0); MEAN CORPUSCULAR VOLUME 89 fl (80-97); MONOCYTES % (AUTO) 6.3 % (3-13); PLATELET COUNT 122 10^3/uL (150-450); RED BLOOD COUNT 4.14 10^6/uL (4.35-5.55); RED CELL DISTRIBUTION WIDTH 17.6 % (11.5-14.0); SEGMENTED NEUTROPHILS % (AUTO) 82.8 % (42-78); TOTAL CELLS COUNTED % (AUTO) 100 %; WHITE BLOOD COUNT 12.9 10^3/uL (4.0-10.5)
[2017-09-23 05:24] LABS: ALANINE AMINOTRANSFERASE 30 U/L (21-72); ALBUMIN 2.5 g/dL (3.5-5.0); ALKALINE PHOSPHATASE 71 U/L (38-126); ANION GAP 5 (5-19); ASPARTATE AMINO TRANSFERASE 13 U/L (17-59); BILIRUBIN,DIRECT 0.4 mg/dL (0.0-0.4); BILIRUBIN,TOTAL 0.8 mg/dL (0.2-1.3); BLOOD UREA NITROGEN 12 mg/dL (7-20); CALCIUM 8.6 mg/dL (8.4-10.2); CARBON DIOXIDE 26 mmol/L (22-30); CHLORIDE 114 mmol/L (98-107); GLUCOSE 103 mg/dL (75-110); MAGNESIUM 1.9 mg/dL (1.6-2.3); POTASSIUM 3.6 mmol/L (3.6-5.0); SODIUM 144.9 mmol/L (137-145); TOTAL PROTEIN 5.6 g/dL (6.3-8.2)
[2017-09-23 06:15] LABS: ARTERIAL BLOOD BASE EXCESS -0.8 mmol/L; ARTERIAL BLOOD H2CO3 1.15 mmol/L (1.05-1.35); ARTERIAL BLOOD HCO3 23.6 mmol/L (20-26); ARTERIAL BLOOD O2 SATURATION 98.6 % (94-98); ARTERIAL BLOOD PCO2 38.1 mmHg (35-45); ARTERIAL BLOOD PH 7.41 (7.35-7.45); ARTERIAL BLOOD PO2 130.2 mmHg (80-100); ARTERIAL BLOOD TOTAL CO2 24.8 mmol/L (23-27)
[2017-09-23 06:16] LABS: ARTERIAL BLOOD FIO2 40%
--- NOTE | 2017-09-23 07:49 | RADIOLOGY REPORT (SQ) ---
EXAM DESCRIPTION: CHEST SINGLE VIEW CLINICAL HISTORY: 76 years, Male, resp failure COMPARISON: 09/22/17. NUMBER OF VIEWS: 1 LIMITATIONS: None. FINDINGS: Moderate lung volume, moderate central pulmonary edema pattern, small obscuration-effusion of the left costophrenic angle, adequate appearing endotracheal tube, right subclavian central line tip at the SVC, no pneumothorax, and no acute bony defect. IMPRESSION: No significant change.
--- NOTE | 2017-09-23 08:46 | PDOC PROGRESS REPORT ---
Subjective Progress Note for:: 09/23/17 Subjective:: Patient is still intubated mechanically ventilated Sedated nonverbal His upper extremities are contracted Does have a PEG in place This is now day 4 after intubation Reason For Visit: SEPSIS, RESP FAILURE Physical Exam Vital Signs: Temp Pulse Resp BP Pulse Ox 98.4 F 58 L 14 128/62 H 100 09/23/17 06:12 09/23/17 06:00 09/23/17 06:12 09/23/17 06:12 09/23/17 06:12 Intake & Output 09/22/17 09/23/17 09/24/17 00:59 00:59 00:59 Intake Total 4108 2975 1613 Output Total 820 1135 265 Balance 3288 1840 1348 Weight 84.6 kg 87.5 kg 87.7 kg General appearance: PRESENT: no acute distress Head exam: PRESENT: atraumatic, normocephalic Eye exam: PRESENT: conjunctiva pink, EOMI, PERRLA. ABSENT: scleral icterus Respiratory exam: PRESENT: decreased breath sounds, symmetrical, unlabored. ABSENT: tachypnea Cardiovascular exam: PRESENT: bradycardia Vascular exam: PRESENT: normal capillary refill GI/Abdominal exam: PRESENT: distended, firm, normal bowel sounds Rectal exam: PRESENT: deferred Extremities exam: PRESENT: +1 edema Skin exam: PRESENT: dry, intact, warm. ABSENT: cyanosis, rash Results Laboratory Results: 09/23/17 05:00 09/23/17 05:00 09/23/17 09/23/17 09/23/17 05:00 05:00 06:02 WBC 12.9 H RBC 4.14 L Hgb 11.9 L Hct 36.7 L MCV 89 MCH 28.7 MCHC 32.3 RDW 17.6 H Plt Count 122 L Seg Neutrophils % 82.8 H Lymphocytes % 5.8 L Monocytes % 6.3 Eosinophils % 4.9 Basophils % 0.2 Absolute Neutrophils 10.7 H Absolute Lymphocytes 0.7 Absolute Monocytes 0.8 Absolute Eosinophils 0.6 Absolute Basophils 0.0 Carbonic Acid 1.15 HCO3/H2CO3 Ratio 20:1 ABG pH 7.41 ABG pCO2 38.1 ABG pO2 130.2 H ABG HCO3 23.6 ABG O2 Saturation 98.6 H ABG Base Excess -0.8 FiO2 40% Sodium 144.9 Potassium 3.6 Chloride 114 H Carbon Dioxide 26 Anion Gap 5 BUN 12 Creatinine 0.65 Est GFR ( Amer) > 60 Est GFR (Non-Af Amer) > 60 Glucose 103 Calcium 8.6 Magnesium 1.9 Total Bilirubin 0.8 AST 13 L ALT 30 Alkaline Phosphatase 71 Total Protein 5.6 L Albumin 2.5 L Impressions: Head CT 09/20/17 16:54 IMPRESSION: Stable CT appearance of the brain demonstrating left parieto- occipital encephalomalacia. Background of chronic microvascular and age- related involutional changes. No acute findings. EVIDENCE OF ACUTE STROKE: NO. Chest X-Ray 09/23/17 06:00 IMPRESSION: No significant change. Assessment & Plan - Diagnosis (1) Respiratory failure Qualifiers: Chronicity: acute Respiratory failure complication: unspecified whether with hypoxia or hypercapnia Qualified Code(s): J96.00 - Acute respiratory failure, unspecified whether with hypoxia or hypercapnia Is this a current diagnosis for this admission?: Yes Plan: Respiratory failure secondary to pneumonia and sepsis Continue present management Continue ventilatory support as per Dr. Puentes Patient has a lot of purulent secretions suctioned from the trachea Continue Zosyn and vancomycin (2) Diabetes Qualifiers: Diabetes mellitus type: type 2 Diabetes mellitus complication status: with unspecified complications Is this a current diagnosis for this admission?: Yes Plan: Continue coverage (3) Aspiration pneumonia Qualifiers: Aspiration pneumonia type: unspecified Laterality: unspecified laterality Lung location: unspecified part of lung Qualified Code(s): J69.0 - Pneumonitis due to inhalation of food and vomit Is this a current diagnosis for this admission?: Yes Plan: Continue antibiotic management Patient is fed by PEG Continuous feedings will be advised rather than bolus feedings at discharge (4) Fluid overload Is this a current diagnosis for this admission?: Yes Plan: Recent chest x-ray suggestive of fluid overload We will diurese patient after infusing albumin (5) Malnutrition Qualifiers: Protein-calorie malnutrition severity: severe Is this a current diagnosis for this admission?: Yes Plan: Resume tube tube feedings Serum albumin is extremely low at 2.5 (6) UTI (urinary tract infection) Qualifiers: Urinary tract infection type: site unspecified Hematuria presence: without hematuria Qualified Code(s): N39.0 - Urinary tract infection, site not specified Is this a current diagnosis for this admission?: Yes Plan: Gram-negative bacilli in the urine Continue Zosyn (7) G tube feedings Is this a current diagnosis for this admission?: Yes Plan: Initiate feedings ; dietitian consult (8) Sepsis Qualifiers: Sepsis type: sepsis due to unspecified organism Qualified Code(s): A41.9 - Sepsis, unspecified organism Is this a current diagnosis for this admission?: Yes (9) Gram positive bacterial infection Is this a current diagnosis for this admission?: Yes Plan: Gram-positive bacteremia Grew enterococcus and staph epidermidis Continue vancomycin Patient will need 14 days of IV antibiotics after negative blood culture - Time Time Spent with patient: Continue DVT prophylaxis ; noted that the patient is a full code Time Spent with patient: 25-34 minutes
--- NOTE | 2017-09-23 10:05 | RADIOLOGY REPORT (SQ) ---
EXAM DESCRIPTION: KUB/ABDOMEN (SINGLE VIEW) COMPLETED DATE/TIME: 09/23/2017 9:27 am REASON FOR STUDY: distended COMPARISON: March 2017 NUMBER OF VIEWS: One view. TECHNIQUE: Supine radiographic image of the abdomen acquired. LIMITATIONS: None. FINDINGS: BOWEL GAS PATTERN: There is a moderate amount of gas and fecal material throughout the col on. Otherwise a nonspecific intestinal bowel gas pattern is identified. CALCIFICATIONS: No suspicious calcifications. SOFT TISSUES: No gross mass or suggestion of organomegaly. HARDWARE: None in the abdomen. BONES: No acute fracture. No worrisome bone lesions. OTHER: No other significant finding. IMPRESSION: NO RADIOGRAPHIC EVIDENCE FOR ACUTE ABDOMINAL DISEASE. TECHNICAL DOCUMENTATION: JOB ID: [id number] [employer]- All Rights Reserved
[2017-09-23] MEDS: FUROSEMIDE INJ/PF 20 MG/2 ML SDV IV SCH ×2 (10:35→21:37)
[2017-09-23] MEDS: PANTOPRAZOLE SODIUM 40 MG VIAL IV SCH ×2 (10:35→22:34)
[2017-09-23] MEDS: VANCOMYCIN HCL 1,250 MG in DEXTROSE 5%-WATER 250 ML IV SCH ×2 (10:37→21:36)
[2017-09-23] MEDS: ALBUMIN HUMAN 50 ML IV SCH ×2 (10:39→21:18)
[2017-09-23] MEDS: LEVETIRACETAM 750 MG in NORMAL SALINE 100 ML IV SCH ×2 (10:39→21:29)
[2017-09-23] MEDS: ENOXAPARIN SODIUM INJ 40 MG/0.4 ML DISP.SYRIN SUBCUT SCH (10:41)
--- NOTE | 2017-09-23 15:24 | PDOC PROGRESS REPORT ---
Subjective Progress Note for:: 09/23/17 Reason For Visit: SEPSIS, RESP FAILURE Physical Exam Vital Signs: Temp Pulse Resp BP Pulse Ox 98.6 F 63 16 101/75 100 09/23/17 08:00 09/23/17 08:00 09/23/17 08:00 09/23/17 08:00 09/23/17 08:35 Intake & Output 09/22/17 09/23/17 09/24/17 06:59 06:59 06:59 Intake Total 2902 3125 Output Total 735 1220 40 Balance 2167 1905 -40 Weight 87.5 kg 87.7 kg Results Laboratory Results: 09/23/17 05:00 09/23/17 05:00 09/23/17 09/23/17 09/23/17 05:00 05:00 06:02 WBC 12.9 H RBC 4.14 L Hgb 11.9 L Hct 36.7 L MCV 89 MCH 28.7 MCHC 32.3 RDW 17.6 H Plt Count 122 L Seg Neutrophils % 82.8 H Lymphocytes % 5.8 L Monocytes % 6.3 Eosinophils % 4.9 Basophils % 0.2 Absolute Neutrophils 10.7 H Absolute Lymphocytes 0.7 Absolute Monocytes 0.8 Absolute Eosinophils 0.6 Absolute Basophils 0.0 Carbonic Acid 1.15 HCO3/H2CO3 Ratio 20:1 ABG pH 7.41 ABG pCO2 38.1 ABG pO2 130.2 H ABG HCO3 23.6 ABG O2 Saturation 98.6 H ABG Base Excess -0.8 FiO2 40% Sodium 144.9 Potassium 3.6 Chloride 114 H Carbon Dioxide 26 Anion Gap 5 BUN 12 Creatinine 0.65 Est GFR ( Amer) > 60 Est GFR (Non-Af Amer) > 60 Glucose 103 Calcium 8.6 Magnesium 1.9 Total Bilirubin 0.8 AST 13 L ALT 30 Alkaline Phosphatase 71 Total Protein 5.6 L Albumin 2.5 L Impressions: Head CT 09/20/17 16:54 IMPRESSION: Stable CT appearance of the brain demonstrating left parieto- occipital encephalomalacia. Background of chronic microvascular and age- related involutional changes. No acute findings. EVIDENCE OF ACUTE STROKE: NO. Chest X-Ray 09/23/17 06:00 IMPRESSION: No significant change. Assessment & Plan - Diagnosis (1) Respiratory failure Qualifiers: Chronicity: acute Respiratory failure complication: unspecified whether with hypoxia or hypercapnia Qualified Code(s): J96.00 - Acute respiratory failure, unspecified whether with hypoxia or hypercapnia Is this a current diagnosis for this admission?: Yes Plan: sllightly improved decresed FIO 2 req (2) Aspiration pneumonia Qualifiers: Aspiration pneumonia type: unspecified Laterality: right Lung location: lower lobe of lung Qualified Code(s): J69.0 - Pneumonitis due to inhalation of food and vomit Is this a current diagnosis for this admission?: Yes Plan: Labs- All tests 24 hr 09/22/17 05:05 ABG pH 7.46 H ABG pCO2 39.3 ABG pO2 68.1 L FiO2 35% 09/20/17 18:12 Blood Culture - Final Blood Enterococcus Faecalis(Group D) 09/20/17 17:00 Urine Culture - Preliminary Vazquez Catheter Gram Negative Rods 09/20/17 17:00 Urine Culture - Preliminary Vazquez Catheter Gram Negative Rods 09/20/17 16:45 Blood Culture - Preliminary Blood Staphylococcus Epidermidis (3) Dementia Qualifiers: Dementia type: unspecified type Dementia behavioral disturbance: without behavioral disturbance Qualified Code(s): F03.90 - Unspecified dementia without behavioral disturbance Is this a current diagnosis for this admission?: Yes Plan: unchanged (4) Dysphagia Is this a current diagnosis for this admission?: Yes Plan: predisposed to aspiration - Time Total Critical Time (Minutes): 40
[2017-09-23] MEDS: PROPOFOL 100 ML IV PRN (17:52)
[2017-09-23] MEDS: ACETAMINOPHEN 650 MG SUPP.RECT PR PRN (18:33)
[2017-09-24] MEDS: POTASSI CL 40 MEQ/NS 1L 1,000 ML IV PRN (04:21)
[2017-09-24] MEDS: PROPOFOL 100 ML IV PRN ×2 (05:24→14:04)
[2017-09-24] MEDS: PIPERACILLIN SODIUM/TAZOBACTAM 4.5 GM in NORMAL SALINE 100 ML IV SCH ×2 (05:24→11:26)
[2017-09-24 05:41] LABS: ABSOLUTE EOSINOPHILS # (AUTO) 0.7 10^3/uL (0.0-0.6); ABSOLUTE LYMPHOCYTES (AUTO) 0.6 10^3/uL (0.5-4.7); ABSOLUTE MONOCYTES (AUTO) 0.8 10^3/uL (0.1-1.4); BASOPHILS % (AUTO) 0.4 % (0-2); EOSINOPHILS % (AUTO) 6.5 % (0-6); HEMATOCRIT 35.4 % (37.9-51.0); HEMOGLOBIN 11.4 g/dL (13.5-17.0); LYMPHOCYTES % (AUTO) 6.2 % (13-45); MEAN CORPUSCULAR HEMOGLOBIN 28.7 pg (27.0-33.4); MEAN CORPUSCULAR HGB CONC 32.3 g/dL (32.0-36.0); MEAN CORPUSCULAR VOLUME 89 fl (80-97); MONOCYTES % (AUTO) 7.9 % (3-13); PLATELET COUNT 134 10^3/uL (150-450); RED BLOOD COUNT 3.99 10^6/uL (4.35-5.55); RED CELL DISTRIBUTION WIDTH 17.6 % (11.5-14.0); TOTAL CELLS COUNTED % (AUTO) 100 %; WHITE BLOOD COUNT 10.2 10^3/uL (4.0-10.5)
[2017-09-24 05:44] LABS: ARTERIAL BLOOD BASE EXCESS 0.1 mmol/L; ARTERIAL BLOOD H2CO3 1.11 mmol/L (1.05-1.35); ARTERIAL BLOOD HCO3 24.1 mmol/L (20-26); ARTERIAL BLOOD PCO2 36.9 mmHg (35-45); ARTERIAL BLOOD PH 7.43 (7.35-7.45); ARTERIAL BLOOD TOTAL CO2 25.2 mmol/L (23-27)
[2017-09-24 05:48] LABS: ARTERIAL BLOOD FIO2 30%
[2017-09-24 06:08] LABS: ANION GAP 7 (5-19); BLOOD UREA NITROGEN 10 mg/dL (7-20); CALCIUM 8.7 mg/dL (8.4-10.2); CARBON DIOXIDE 25 mmol/L (22-30); CHLORIDE 113 mmol/L (98-107); GLUCOSE 110 mg/dL (75-110); MAGNESIUM 1.9 mg/dL (1.6-2.3); POTASSIUM 3.2 mmol/L (3.6-5.0); SODIUM 144.6 mmol/L (137-145)
--- NOTE | 2017-09-24 07:09 | RADIOLOGY REPORT (SQ) ---
EXAM DESCRIPTION: CHEST SINGLE VIEW COMPLETED DATE/TIME: 09/24/2017 6:33 am REASON FOR STUDY: Pt intubated COMPARISON: Chest x-ray 09/23/2017. EXAM PARAMETERS: NUMBER OF VIEWS: One view TECHNIQUE: Single frontal radiograph of the chest. RADIATION DOSE: N/A LIMITATIONS: None. FINDINGS: TEMPORARY SUPPORT DEVICES:ETT in expected location. Central venous access catheter tip i s in expected location. LUNGS AND PLEURA: Small left pleural effusion with interval development of ground-glass opacity at th e left lung base. No pneumothorax. MEDIASTINUM AND HILAR STRUCTURES: No masses. Contour normal. HEART AND VASCULAR STRUCTURES: The heart is enlarged. There is interval increase in the vascular con gestion. BONES: No acute findings. IMPRESSION: Cardiomegaly with interval increase in the vascular congestion. Small left pleural effu mirella with interval development of ground-glass opacity at the left lung base, may represent atelectas is or pneumonia. TECHNICAL DOCUMENTATION: JOB ID: [id number] 2010 [employer]- All Rights Reserved
[2017-09-24] MEDS: ALBUMIN HUMAN 50 ML IV SCH ×2 (10:41→22:12)
[2017-09-24] MEDS: VANCOMYCIN HCL 1,250 MG in DEXTROSE 5%-WATER 250 ML IV SCH ×2 (10:41→22:27)
[2017-09-24] MEDS: ENOXAPARIN SODIUM INJ 40 MG/0.4 ML DISP.SYRIN SUBCUT SCH (10:42)
[2017-09-24] MEDS: PANTOPRAZOLE SODIUM 40 MG VIAL IV SCH ×2 (10:42→22:14)
[2017-09-24] MEDS: FUROSEMIDE INJ/PF 20 MG/2 ML SDV IV SCH (10:42)
[2017-09-24] MEDS: LEVETIRACETAM 750 MG in NORMAL SALINE 100 ML IV SCH ×2 (10:43→22:15)
[2017-09-24] MEDS: POTASSIUM CHLORIDE 20 MEQ/50 ML RTU IV SCH ×2 (11:27→14:04)
[2017-09-24] MEDS ORDERED: ACETYLCYSTEINE 20% SOLN 800 MG/4 ML VIAL.NEB NEB ONE (11:30)
--- NOTE | 2017-09-24 11:45 | PDOC PROGRESS REPORT ---
Subjective Progress Note for:: 09/24/17 Subjective:: His condition is stable and pretty much unchanged since yesterday Tube feedings have been initiated chest x-ray still shows fluid overload Reason For Visit: SEPSIS, RESP FAILURE Physical Exam Vital Signs: Temp Pulse Resp BP Pulse Ox 99.7 F 75 31 H 153/68 H 97 09/24/17 10:00 09/24/17 10:00 09/24/17 10:00 09/24/17 10:00 09/24/17 10:00 Intake & Output 09/23/17 09/24/17 09/25/17 00:59 00:59 00:59 Intake Total 2975 3017 1431 Output Total 1135 2535 700 Balance 1840 482 731 Weight 87.5 kg 87.7 kg 87.8 kg General appearance: PRESENT: no acute distress Head exam: PRESENT: atraumatic, normocephalic Eye exam: PRESENT: conjunctiva pink, EOMI, PERRLA. ABSENT: scleral icterus Respiratory exam: PRESENT: decreased breath sounds, symmetrical, unlabored. ABSENT: tachypnea Cardiovascular exam: PRESENT: bradycardia Vascular exam: PRESENT: normal capillary refill GI/Abdominal exam: PRESENT: distended, firm, normal bowel sounds Rectal exam: PRESENT: deferred Extremities exam: PRESENT: +1 edema Skin exam: PRESENT: dry, intact, warm. ABSENT: cyanosis, rash Results Laboratory Results: 09/24/17 05:15 09/24/17 05:15 09/24/17 09/24/17 09/24/17 05:15 05:15 05:15 WBC 10.2 RBC 3.99 L Hgb 11.4 L Hct 35.4 L MCV 89 MCH 28.7 MCHC 32.3 RDW 17.6 H Plt Count 134 L Seg Neutrophils % 79.0 H Lymphocytes % 6.2 L Monocytes % 7.9 Eosinophils % 6.5 H Basophils % 0.4 Absolute Neutrophils 8.0 Absolute Lymphocytes 0.6 Absolute Monocytes 0.8 Absolute Eosinophils 0.7 H Absolute Basophils 0.0 Carbonic Acid 1.11 HCO3/H2CO3 Ratio 21:1 ABG pH 7.43 ABG pCO2 36.9 ABG pO2 72.0 L ABG HCO3 24.1 ABG O2 Saturation 95.0 ABG Base Excess 0.1 FiO2 30% Sodium 144.6 Potassium 3.2 L Chloride 113 H Carbon Dioxide 25 Anion Gap 7 BUN 10 Creatinine 0.63 Est GFR ( Amer) > 60 Est GFR (Non-Af Amer) > 60 Glucose 110 Calcium 8.7 Magnesium 1.9 Impressions: Head CT 09/20/17 16:54 IMPRESSION: Stable CT appearance of the brain demonstrating left parieto- occipital encephalomalacia. Background of chronic microvascular and age- related involutional changes. No acute findings. EVIDENCE OF ACUTE STROKE: NO. KUB X-Ray 09/23/17 08:59 IMPRESSION: NO RADIOGRAPHIC EVIDENCE FOR ACUTE ABDOMINAL DISEASE. Chest X-Ray 09/24/17 06:00 IMPRESSION: Cardiomegaly with interval increase in the vascular congestion. Small left pleural effusion with interval development of ground-glass opacity at the left lung base, may represent atelectasis or pneumonia. Assessment & Plan - Diagnosis (1) Respiratory failure Qualifiers: Chronicity: acute Respiratory failure complication: unspecified whether with hypoxia or hypercapnia Qualified Code(s): J96.00 - Acute respiratory failure, unspecified whether with hypoxia or hypercapnia Is this a current diagnosis for this admission?: Yes Plan: Respiratory failure secondary to pneumonia and sepsis Continue present management Continue ventilatory support as per Dr. Puentes Patient has a lot of purulent secretions suctioned from the trachea Continue Zosyn and vancomycin (2) Diabetes Qualifiers: Diabetes mellitus type: type 2 Diabetes mellitus complication status: with unspecified complications Is this a current diagnosis for this admission?: Yes Plan: Continue coverage (3) Aspiration pneumonia Qualifiers: Aspiration pneumonia type: unspecified Laterality: unspecified laterality Lung location: unspecified part of lung Qualified Code(s): J69.0 - Pneumonitis due to inhalation of food and vomit Is this a current diagnosis for this admission?: Yes Plan: Continue antibiotic management Patient is fed by PEG Continuous feedings will be advised rather than bolus feedings at discharge (4) Fluid overload Is this a current diagnosis for this admission?: Yes Plan: Recent chest x-ray suggestive of fluid overload We will diurese patient after infusing albumin echocardiogram performed 10/2016 showed normal left ventricular function and diastolic dysfunction Will increase Lasix (5) Malnutrition Qualifiers: Protein-calorie malnutrition severity: severe Is this a current diagnosis for this admission?: Yes Plan: Resume tube tube feedings Serum albumin is extremely low at 2.5 (6) UTI (urinary tract infection) Qualifiers: Urinary tract infection type: site unspecified Hematuria presence: without hematuria Qualified Code(s): N39.0 - Urinary tract infection, site not specified Is this a current diagnosis for this admission?: Yes Plan: pseudomonas multiresistant initiate tobramycin IV (7) G tube feedings Is this a current diagnosis for this admission?: Yes (8) Gram positive bacterial infection Is this a current diagnosis for this admission?: Yes Plan: Enterococcus and staph epidermidis bacteremia Both are sensitive to vancomycin we will initiate daptomycin which will be less nephrotoxic - Time Time Spent with patient: 25-34 minutes
[2017-09-24] MEDS ORDERED: FUROSEMIDE INJ/PF 20 MG/2 ML SDV IV SCH (12:06)
[2017-09-24] MEDS ORDERED: GENTAMICIN SULFATE 0 MG in DEXTROSE 5%-WATER 100 ML IV NR (12:15)
[2017-09-24] MEDS: GENTAMICIN SULFATE 100 MG in DEXTROSE 5%-WATER 100 ML IV SCH ×2 (14:09→22:26)
[2017-09-24] MEDS: IPRATROPIUM/ALBUTEROL 0.5-2.5 MG/3 ML AMPUL NEB SCH ×2 (14:11→19:57)
[2017-09-24] MEDS: ACETAMINOPHEN 650 MG SUPP.RECT PR PRN (18:46)
[2017-09-24] MEDS: ACETYLCYSTEINE 20% SOLN 800 MG/4 ML VIAL.NEB NEB SCH (19:56)
[2017-09-25] MEDS: PROPOFOL 100 ML IV PRN ×5 (01:02→22:27)
[2017-09-25] MEDS: IPRATROPIUM/ALBUTEROL 0.5-2.5 MG/3 ML AMPUL NEB SCH ×4 (02:25→20:26)
[2017-09-25 05:21] LABS: ABSOLUTE EOSINOPHILS # (AUTO) 0.4 10^3/uL (0.0-0.6); ABSOLUTE LYMPHOCYTES (AUTO) 0.5 10^3/uL (0.5-4.7); ABSOLUTE MONOCYTES (AUTO) 0.8 10^3/uL (0.1-1.4); ABSOLUTE NEUT (AUTO) 5.8 10^3/uL (1.7-8.2); BASOPHILS % (AUTO) 0.4 % (0-2); EOSINOPHILS % (AUTO) 5.7 % (0-6); HEMATOCRIT 33.6 % (37.9-51.0); HEMOGLOBIN 11.2 g/dL (13.5-17.0); MEAN CORPUSCULAR HEMOGLOBIN 29.3 pg (27.0-33.4); MEAN CORPUSCULAR HGB CONC 33.4 g/dL (32.0-36.0); MEAN CORPUSCULAR VOLUME 88 fl (80-97); MONOCYTES % (AUTO) 10.7 % (3-13); PLATELET COUNT 147 10^3/uL (150-450); RED BLOOD COUNT 3.83 10^6/uL (4.35-5.55); RED CELL DISTRIBUTION WIDTH 17.3 % (11.5-14.0); SEGMENTED NEUTROPHILS % (AUTO) 76.2 % (42-78); TOTAL CELLS COUNTED % (AUTO) 100 %; WHITE BLOOD COUNT 7.6 10^3/uL (4.0-10.5)
[2017-09-25 05:32] LABS: ARTERIAL BLOOD BASE EXCESS 0.9 mmol/L; ARTERIAL BLOOD HCO3 24.6 mmol/L (20-26); ARTERIAL BLOOD O2 SATURATION 91.4 % (94-98); ARTERIAL BLOOD PCO2 36.5 mmHg (35-45); ARTERIAL BLOOD PH 7.45 (7.35-7.45); ARTERIAL BLOOD PO2 57.9 mmHg (80-100); ARTERIAL BLOOD TOTAL CO2 25.7 mmol/L (23-27)
[2017-09-25 05:34] LABS: ARTERIAL BLOOD FIO2 30%
[2017-09-25] MEDS: GENTAMICIN SULFATE 100 MG in DEXTROSE 5%-WATER 100 ML IV SCH ×2 (05:41→14:40)
[2017-09-25 05:50] LABS: ALANINE AMINOTRANSFERASE 29 U/L (21-72); ALBUMIN 2.9 g/dL (3.5-5.0); ALKALINE PHOSPHATASE 71 U/L (38-126); ANION GAP 8 (5-19); ASPARTATE AMINO TRANSFERASE 17 U/L (17-59); BILIRUBIN,DIRECT 0.7 mg/dL (0.0-0.4); BILIRUBIN,TOTAL 0.7 mg/dL (0.2-1.3); BLOOD UREA NITROGEN 9 mg/dL (7-20); CALCIUM 8.8 mg/dL (8.4-10.2); CARBON DIOXIDE 26 mmol/L (22-30); CHLORIDE 111 mmol/L (98-107); GLUCOSE 174 mg/dL (75-110); MAGNESIUM 1.7 mg/dL (1.6-2.3); SODIUM 144.8 mmol/L (137-145); TOTAL PROTEIN 5.9 g/dL (6.3-8.2); TRIGLYCERIDES 96 mg/dL (<150)
[2017-09-25] MEDS: INSULIN REG, HUMAN 100 UNIT/ML 3 ML VIAL (PYX) SUBCUT PRN (07:00)
--- NOTE | 2017-09-25 07:14 | RADIOLOGY REPORT (SQ) ---
EXAM DESCRIPTION: CHEST SINGLE VIEW COMPLETED DATE/TIME: 09/25/2017 6:22 am REASON FOR STUDY: Pt intubated COMPARISON: Chest x-ray 09/24/2017. EXAM PARAMETERS: NUMBER OF VIEWS: One view TECHNIQUE: Single frontal radiograph of the chest. RADIATION DOSE: N/A LIMITATIONS: None. FINDINGS: TEMPORARY SUPPORT DEVICES:ETT in expected location. Central venous access catheter tip i s in expected location. LUNGS AND PLEURA: There are bilateral perihilar airspace opacities. No sizable pleural effusion or p neumothorax. MEDIASTINUM AND HILAR STRUCTURES: No masses. Contour normal. HEART AND VASCULAR STRUCTURES: The heart is mildly enlarged. There is vascular congestion. BONES: No acute findings. IMPRESSION: Mild cardiomegaly and vascular congestion. Bilateral perihilar airspace opacities, may represent pulmonary edema and/or pneumonia. TECHNICAL DOCUMENTATION: JOB ID: [id number] 2010 [employer] All Rights Reserved
[2017-09-25] MEDS: ACETYLCYSTEINE 20% SOLN 800 MG/4 ML VIAL.NEB NEB SCH ×2 (08:16→20:26)
--- NOTE | 2017-09-25 09:30 | PDOC PROGRESS REPORT ---
Subjective Progress Note for:: 09/25/17 Subjective:: His condition is stable and pretty much unchanged since yesterday Tube feedings have been initiated chest x-ray still shows fluid overload the abdomen is a little tense and firm Tube feedings on hold he is otherwise hemodynamically stable Reason For Visit: SEPSIS, RESP FAILURE Physical Exam Vital Signs: Temp Pulse Resp BP Pulse Ox 97.9 F 57 L 14 137/71 H 95 09/25/17 02:00 09/25/17 08:00 09/25/17 09:00 09/25/17 08:54 09/25/17 09:00 Intake & Output 09/24/17 09/25/17 09/26/17 00:59 00:59 00:59 Intake Total 3017 3163 837 Output Total 2535 2215 750 Balance 482 948 87 Weight 87.7 kg 87.8 kg 89.7 kg General appearance: PRESENT: no acute distress Head exam: PRESENT: atraumatic, normocephalic Eye exam: PRESENT: conjunctiva pink, EOMI, PERRLA. ABSENT: scleral icterus Respiratory exam: PRESENT: decreased breath sounds, symmetrical, unlabored. ABSENT: tachypnea Cardiovascular exam: PRESENT: bradycardia Vascular exam: PRESENT: normal capillary refill GI/Abdominal exam: PRESENT: distended, firm, normal bowel sounds Rectal exam: PRESENT: deferred Extremities exam: PRESENT: +1 edema Skin exam: PRESENT: dry, intact, warm. ABSENT: cyanosis, rash Results Laboratory Results: 09/25/17 04:55 09/25/17 04:55 09/25/17 09/25/17 09/25/17 04:55 04:55 04:55 WBC 7.6 RBC 3.83 L Hgb 11.2 L Hct 33.6 L MCV 88 MCH 29.3 MCHC 33.4 RDW 17.3 H Plt Count 147 L Seg Neutrophils % 76.2 Lymphocytes % 7.0 L Monocytes % 10.7 Eosinophils % 5.7 Basophils % 0.4 Absolute Neutrophils 5.8 Absolute Lymphocytes 0.5 Absolute Monocytes 0.8 Absolute Eosinophils 0.4 Absolute Basophils 0.0 Carbonic Acid 1.10 HCO3/H2CO3 Ratio 22:1 ABG pH 7.45 ABG pCO2 36.5 ABG pO2 57.9 L ABG HCO3 24.6 ABG O2 Saturation 91.4 L ABG Base Excess 0.9 FiO2 30% Sodium 144.8 Potassium 3.0 L* Chloride 111 H Carbon Dioxide 26 Anion Gap 8 BUN 9 Creatinine 0.62 Est GFR ( Amer) > 60 Est GFR (Non-Af Amer) > 60 Glucose 174 H Calcium 8.8 Magnesium 1.7 Total Bilirubin 0.7 AST 17 ALT 29 Alkaline Phosphatase 71 Total Protein 5.9 L Albumin 2.9 L Triglycerides 96 Impressions: Head CT 09/20/17 16:54 IMPRESSION: Stable CT appearance of the brain demonstrating left parieto- occipital encephalomalacia. Background of chronic microvascular and age- related involutional changes. No acute findings. EVIDENCE OF ACUTE STROKE: NO. KUB X-Ray 09/23/17 08:59 IMPRESSION: NO RADIOGRAPHIC EVIDENCE FOR ACUTE ABDOMINAL DISEASE. Chest X-Ray 09/25/17 06:00 IMPRESSION: Mild cardiomegaly and vascular congestion. Bilateral perihilar airspace opacities, may represent pulmonary edema and/or pneumonia. Assessment & Plan - Diagnosis (1) Respiratory failure Qualifiers: Chronicity: acute Respiratory failure complication: unspecified whether with hypoxia or hypercapnia Qualified Code(s): J96.00 - Acute respiratory failure, unspecified whether with hypoxia or hypercapnia Is this a current diagnosis for this admission?: Yes (2) Diabetes Qualifiers: Diabetes mellitus type: type 2 Diabetes mellitus complication status: with unspecified complications Is this a current diagnosis for this admission?: Yes (3) Aspiration pneumonia Qualifiers: Aspiration pneumonia type: unspecified Laterality: unspecified laterality Lung location: unspecified part of lung Qualified Code(s): J69.0 - Pneumonitis due to inhalation of food and vomit Is this a current diagnosis for this admission?: Yes (4) Fluid overload Is this a current diagnosis for this admission?: Yes (5) Malnutrition Qualifiers: Protein-calorie malnutrition severity: severe Is this a current diagnosis for this admission?: Yes (6) UTI (urinary tract infection) Qualifiers: Urinary tract infection type: site unspecified Hematuria presence: without hematuria Qualified Code(s): N39.0 - Urinary tract infection, site not specified Is this a current diagnosis for this admission?: Yes (7) G tube feedings Is this a current diagnosis for this admission?: Yes (8) Gram positive bacterial infection Is this a current diagnosis for this admission?: Yes - Time Time Spent with patient: Continue present management replace K Increase Lasix KUB will be performed to exclude an ileus Feedings on hold until then Time Spent with patient: 25-34 minutes
--- NOTE | 2017-09-25 10:17 | RADIOLOGY REPORT (SQ) ---
EXAM DESCRIPTION: KUB/ABDOMEN (SINGLE VIEW) COMPLETED DATE/TIME: 09/25/2017 9:59 am REASON FOR STUDY: abdominal distension COMPARISON: 09/23/2017 NUMBER OF VIEWS: Two views TECHNIQUE: Supine radiographic image of the abdomen acquired. LIMITATIONS: None. FINDINGS: BOWEL GAS PATTERN: Normal bowel gas pattern. No dilated loops. Moderate amount of fecal m aterial in the proximal colon. CALCIFICATIONS: No suspicious calcifications. SOFT TISSUES: No gross mass or suggestion of organomegaly. HARDWARE: None in the abdomen. BONES: Patchy osteopenia particularly in the proximal left femur presumably due to disuse with intram edullary jelani seen in the left femur. OTHER: No other significant finding. IMPRESSION: NO RADIOGRAPHIC EVIDENCE FOR ACUTE ABDOMINAL DISEASE. TECHNICAL DOCUMENTATION: JOB ID: [id number] [employer]- All Rights Reserved
[2017-09-25] MEDS: ALBUMIN HUMAN 50 ML IV SCH ×2 (10:35→22:28)
[2017-09-25] MEDS: LEVETIRACETAM 750 MG in NORMAL SALINE 100 ML IV SCH ×2 (10:35→22:29)
[2017-09-25] MEDS: PANTOPRAZOLE SODIUM 40 MG VIAL IV SCH ×2 (10:36→22:28)
[2017-09-25] MEDS: VANCOMYCIN HCL 1,250 MG in DEXTROSE 5%-WATER 250 ML IV SCH ×2 (10:36→22:30)
[2017-09-25] MEDS: FUROSEMIDE INJ/PF 40 MG/4 ML SDV IV SCH ×2 (10:37→22:28)
[2017-09-25] MEDS: ENOXAPARIN SODIUM INJ 60 MG/0.6 ML DISP.SYRIN SUBCUT SCH (10:38)
[2017-09-25] MEDS: POTASSIUM CHLORIDE 20 MEQ/50 ML RTU IV SCH ×5 (10:38→23:53)
[2017-09-25 15:22] LABS: GENTAMICIN-TROUGH 3.3 ug/mL (<2.0)
[2017-09-25 20:52] LABS: ANION GAP 6 (5-19); BLOOD UREA NITROGEN 7 mg/dL (7-20); CALCIUM 8.8 mg/dL (8.4-10.2); CARBON DIOXIDE 29 mmol/L (22-30); CHLORIDE 110 mmol/L (98-107); GLUCOSE 115 mg/dL (75-110); POTASSIUM 3.3 mmol/L (3.6-5.0); SODIUM 144.8 mmol/L (137-145)
[2017-09-26] MEDS: PROPOFOL 100 ML IV PRN (01:40)
[2017-09-26] MEDS: IPRATROPIUM/ALBUTEROL 0.5-2.5 MG/3 ML AMPUL NEB SCH ×4 (02:26→20:23)
[2017-09-26 05:16] LABS: ARTERIAL BLOOD BASE EXCESS 1.9 mmol/L; ARTERIAL BLOOD H2CO3 1.15 mmol/L (1.05-1.35); ARTERIAL BLOOD HCO3 25.9 mmol/L (20-26); ARTERIAL BLOOD O2 SATURATION 97.3 % (94-98); ARTERIAL BLOOD PCO2 38.3 mmHg (35-45); ARTERIAL BLOOD PH 7.45 (7.35-7.45); ARTERIAL BLOOD PO2 90.8 mmHg (80-100); ARTERIAL BLOOD TOTAL CO2 27.1 mmol/L (23-27)
[2017-09-26 05:18] LABS: ABSOLUTE EOSINOPHILS # (AUTO) 0.7 10^3/uL (0.0-0.6); ABSOLUTE LYMPHOCYTES (AUTO) 0.6 10^3/uL (0.5-4.7); ABSOLUTE MONOCYTES (AUTO) 0.8 10^3/uL (0.1-1.4); ABSOLUTE NEUT (AUTO) 5.1 10^3/uL (1.7-8.2); BASOPHILS % (AUTO) 0.5 % (0-2); EOSINOPHILS % (AUTO) 9.7 % (0-6); HEMATOCRIT 34.1 % (37.9-51.0); HEMOGLOBIN 11.3 g/dL (13.5-17.0); LYMPHOCYTES % (AUTO) 7.8 % (13-45); MEAN CORPUSCULAR HEMOGLOBIN 28.9 pg (27.0-33.4); MEAN CORPUSCULAR VOLUME 88 fl (80-97); MONOCYTES % (AUTO) 11.2 % (3-13); PLATELET COUNT 182 10^3/uL (150-450); RED BLOOD COUNT 3.89 10^6/uL (4.35-5.55); RED CELL DISTRIBUTION WIDTH 17.8 % (11.5-14.0); SEGMENTED NEUTROPHILS % (AUTO) 70.8 % (42-78); TOTAL CELLS COUNTED % (AUTO) 100 %; WHITE BLOOD COUNT 7.1 10^3/uL (4.0-10.5)
[2017-09-26 05:43] LABS: ANION GAP 9 (5-19); BLOOD UREA NITROGEN 7 mg/dL (7-20); CALCIUM 9.1 mg/dL (8.4-10.2); CARBON DIOXIDE 29 mmol/L (22-30); CHLORIDE 109 mmol/L (98-107); GLUCOSE 140 mg/dL (75-110); MAGNESIUM 1.7 mg/dL (1.6-2.3); POTASSIUM 3.7 mmol/L (3.6-5.0); SODIUM 147.2 mmol/L (137-145)
[2017-09-26 06:44] LABS: ARTERIAL BLOOD FIO2 30%
--- NOTE | 2017-09-26 07:16 | RADIOLOGY REPORT (SQ) ---
EXAM DESCRIPTION: CHEST SINGLE VIEW COMPLETED DATE/TIME: 09/26/2017 6:24 am REASON FOR STUDY: Pt intubated COMPARISON: Chest films 09/20/2017, 09/23/2017, 09/24/2017, 09/25/2017 EXAM PARAMETERS: NUMBER OF VIEWS: One view. TECHNIQUE: Single frontal radiographic view of the chest acquired. RADIATION DOSE: NA LIMITATIONS: None. FINDINGS: LUNGS AND PLEURA: Persistent right and left perihilar airspace disease, edema versus pneum onia similar compared to 09/25/2017. Unchanged left retrocardiac consolidation atelectasis versus pneumonia. No gross pleural effusions or pneumothorax. MEDIASTINUM AND HILAR STRUCTURES: No masses. Contour normal. HEART AND VASCULAR STRUCTURES: No cardiomegaly BONES: No acute findings. HARDWARE: Endotracheal tube tip 3 to 4 cm above the sree. Right subclavian central line tip superi or vena cava. OTHER: No other significant finding. IMPRESSION: No change from 09/25/2017. TECHNICAL DOCUMENTATION: JOB ID: [id number] [employer]- All Rights Reserved
[2017-09-26] MEDS: ACETYLCYSTEINE 20% SOLN 800 MG/4 ML VIAL.NEB NEB SCH ×2 (08:29→20:23)
[2017-09-26] MEDS ORDERED: FUROSEMIDE INJ/PF 40 MG/4 ML SDV ONE (11:19)
[2017-09-26] MEDS: PANTOPRAZOLE SODIUM 40 MG VIAL IV SCH ×2 (13:37→22:06)
[2017-09-26] MEDS: FUROSEMIDE INJ/PF 40 MG/4 ML SDV IV SCH ×2 (13:37→22:06)
[2017-09-26] MEDS: ENOXAPARIN SODIUM INJ 60 MG/0.6 ML DISP.SYRIN SUBCUT SCH (13:40)
[2017-09-26] MEDS: GENTAMICIN SULFATE 200 MG in DEXTROSE 5%-WATER 100 ML IV SCH (13:41)
[2017-09-26] MEDS: ALBUMIN HUMAN 50 ML IV SCH ×2 (13:50→22:06)
[2017-09-26] MEDS: VANCOMYCIN HCL 1,250 MG in DEXTROSE 5%-WATER 250 ML IV SCH ×2 (14:02→22:26)
[2017-09-26] MEDS: LEVETIRACETAM 750 MG in NORMAL SALINE 100 ML IV SCH ×2 (14:02→22:07)
--- NOTE | 2017-09-26 19:31 | PDOC PROGRESS REPORT ---
Subjective Progress Note for:: 09/26/17 Subjective:: Patient was extubated successfully today He appears quite comfortable Still not verbal with contracted upper extremities Reason For Visit: SEPSIS, RESP FAILURE Physical Exam Vital Signs: Temp Pulse Resp BP Pulse Ox 100.2 F 95 26 H 143/76 H 98 09/26/17 14:18 09/26/17 14:36 09/26/17 14:36 09/26/17 14:18 09/26/17 14:36 Intake & Output 09/25/17 09/26/17 09/27/17 00:59 00:59 00:59 Intake Total 3163 1950 732 Output Total 2215 3975 3175 Balance 463 -1472 -8181 Weight 87.8 kg 89.7 kg 87 kg General appearance: PRESENT: no acute distress Head exam: PRESENT: atraumatic, normocephalic Eye exam: PRESENT: conjunctiva pink, EOMI, PERRLA. ABSENT: scleral icterus Respiratory exam: PRESENT: decreased breath sounds, symmetrical, unlabored. ABSENT: tachypnea Cardiovascular exam: PRESENT: bradycardia Vascular exam: PRESENT: normal capillary refill GI/Abdominal exam: PRESENT: distended, firm, normal bowel sounds Rectal exam: PRESENT: deferred Extremities exam: PRESENT: +1 edema Skin exam: PRESENT: dry, intact, warm. ABSENT: cyanosis, rash Results Laboratory Results: 09/26/17 05:00 09/26/17 05:00 09/25/17 09/26/17 09/26/17 20:00 05:00 05:00 WBC RBC Hgb Hct MCV MCH MCHC RDW Plt Count Seg Neutrophils % Lymphocytes % Monocytes % Eosinophils % Basophils % Absolute Neutrophils Absolute Lymphocytes Absolute Monocytes Absolute Eosinophils Absolute Basophils Carbonic Acid 1.15 HCO3/H2CO3 Ratio 22:1 ABG pH 7.45 ABG pCO2 38.3 ABG pO2 90.8 ABG HCO3 25.9 ABG O2 Saturation 97.3 ABG Base Excess 1.9 FiO2 30% Sodium 144.8 147.2 H Potassium 3.3 L 3.7 Chloride 110 H 109 H Carbon Dioxide 29 29 Anion Gap 6 9 BUN 7 7 Creatinine 0.77 0.82 Est GFR ( Amer) > 60 > 60 Est GFR (Non-Af Amer) > 60 > 60 Glucose 115 H 140 H Calcium 8.8 9.1 Magnesium 1.7 09/26/17 05:00 WBC 7.1 RBC 3.89 L Hgb 11.3 L Hct 34.1 L MCV 88 MCH 28.9 MCHC 33.0 RDW 17.8 H Plt Count 182 Seg Neutrophils % 70.8 Lymphocytes % 7.8 L Monocytes % 11.2 Eosinophils % 9.7 H Basophils % 0.5 Absolute Neutrophils 5.1 Absolute Lymphocytes 0.6 Absolute Monocytes 0.8 Absolute Eosinophils 0.7 H Absolute Basophils 0.0 Carbonic Acid HCO3/H2CO3 Ratio ABG pH ABG pCO2 ABG pO2 ABG HCO3 ABG O2 Saturation ABG Base Excess FiO2 Sodium Potassium Chloride Carbon Dioxide Anion Gap BUN Creatinine Est GFR ( Amer) Est GFR (Non-Af Amer) Glucose Calcium Magnesium Impressions: Head CT 09/20/17 16:54 IMPRESSION: Stable CT appearance of the brain demonstrating left parieto- occipital encephalomalacia. Background of chronic microvascular and age- related involutional changes. No acute findings. EVIDENCE OF ACUTE STROKE: NO. KUB X-Ray 09/25/17 09:28 IMPRESSION: NO RADIOGRAPHIC EVIDENCE FOR ACUTE ABDOMINAL DISEASE. Chest X-Ray 09/26/17 06:00 IMPRESSION: No change from 09/25/2017. Assessment & Plan - Diagnosis (1) Respiratory failure Qualifiers: Chronicity: acute Respiratory failure complication: unspecified whether with hypoxia or hypercapnia Qualified Code(s): J96.00 - Acute respiratory failure, unspecified whether with hypoxia or hypercapnia Is this a current diagnosis for this admission?: Yes Plan: Respiratory failure secondary to pneumonia and sepsis Continue broad-spectrum antibiotics; patient was successfully extubated (2) Diabetes Qualifiers: Diabetes mellitus type: type 2 Diabetes mellitus complication status: with unspecified complications Is this a current diagnosis for this admission?: Yes Plan: Continue present management (3) Aspiration pneumonia Qualifiers: Aspiration pneumonia type: unspecified Laterality: unspecified laterality Lung location: unspecified part of lung Qualified Code(s): J69.0 - Pneumonitis due to inhalation of food and vomit Is this a current diagnosis for this admission?: Yes Plan: Continue Zosyn and vancomycin (4) Fluid overload Is this a current diagnosis for this admission?: Yes Plan: Echocardiogram performed in 2016 showed normal left ventricular function and diastolic dysfunction we will continue diuresis with Lasix Order repeat BMP and BNP in a.m. chest x-ray suggestive of fluid overload versus Persistent pneumonia (5) Malnutrition Qualifiers: Protein-calorie malnutrition severity: severe Is this a current diagnosis for this admission?: Yes (6) UTI (urinary tract infection) Qualifiers: Urinary tract infection type: site unspecified Hematuria presence: without hematuria Qualified Code(s): N39.0 - Urinary tract infection, site not specified Is this a current diagnosis for this admission?: Yes (7) G tube feedings Is this a current diagnosis for this admission?: Yes (8) Infectious disease Is this a current diagnosis for this admission?: Yes Plan: 09/25/17 14:30 Gram Stain - Preliminary Tracheal Aspirate Sputum Culture - Preliminary Gram Negative Rods 09/20/17 18:12 Blood Culture - Final Blood Enterococcus Faecalis(Group D) 09/20/17 17:00 Urine Culture - Final Vazquez Catheter Pseudomonas Aeruginosa 09/20/17 16:45 Blood Culture - Preliminary Blood Staphylococcus Epidermidis Patient has Pseudomonas and Enterococcus faecalis infections he is currently on vancomycin and gentamicin - Time Time Spent with patient: 35 or more minutes
[2017-09-27 00:14] LABS: CREATINE KINASE MB 0.83 ng/mL (<4.55); TROPONIN I 0.013 ng/mL
[2017-09-27] MEDS: INSULIN REG, HUMAN 100 UNIT/ML 3 ML VIAL (PYX) SUBCUT PRN ×3 (00:25→23:57)
[2017-09-27] MEDS: IPRATROPIUM/ALBUTEROL 0.5-2.5 MG/3 ML AMPUL NEB SCH ×4 (00:50→20:02)
[2017-09-27 05:45] LABS: ABSOLUTE EOSINOPHILS # (AUTO) 0.8 10^3/uL (0.0-0.6); ABSOLUTE LYMPHOCYTES (AUTO) 0.7 10^3/uL (0.5-4.7); ABSOLUTE MONOCYTES (AUTO) 0.6 10^3/uL (0.1-1.4); ABSOLUTE NEUT (AUTO) 4.4 10^3/uL (1.7-8.2); BASOPHILS % (AUTO) 0.5 % (0-2); EOSINOPHILS % (AUTO) 12.5 % (0-6); HEMATOCRIT 36.3 % (37.9-51.0); MEAN CORPUSCULAR HGB CONC 33.1 g/dL (32.0-36.0); MEAN CORPUSCULAR VOLUME 88 fl (80-97); MONOCYTES % (AUTO) 9.5 % (3-13); PLATELET COUNT 239 10^3/uL (150-450); RED BLOOD COUNT 4.15 10^6/uL (4.35-5.55); RED CELL DISTRIBUTION WIDTH 17.1 % (11.5-14.0); SEGMENTED NEUTROPHILS % (AUTO) 66.5 % (42-78); TOTAL CELLS COUNTED % (AUTO) 100 %; WHITE BLOOD COUNT 6.6 10^3/uL (4.0-10.5)
[2017-09-27 05:47] LABS: ARTERIAL BLOOD BASE EXCESS 6.6 mmol/L; ARTERIAL BLOOD FIO2 2L; ARTERIAL BLOOD HCO3 30.9 mmol/L (20-26); ARTERIAL BLOOD O2 SATURATION 95.3 % (94-98); ARTERIAL BLOOD PCO2 43.3 mmHg (35-45); ARTERIAL BLOOD PH 7.47 (7.35-7.45); ARTERIAL BLOOD TOTAL CO2 32.3 mmol/L (23-27)
[2017-09-27 05:57] LABS: ANION GAP 11 (5-19); BLOOD UREA NITROGEN 8 mg/dL (7-20); CALCIUM 9.5 mg/dL (8.4-10.2); CARBON DIOXIDE 33 mmol/L (22-30); CHLORIDE 105 mmol/L (98-107); GLUCOSE 160 mg/dL (75-110); MAGNESIUM 1.8 mg/dL (1.6-2.3); SODIUM 149.1 mmol/L (137-145)
[2017-09-27] MEDS: POTASSIUM CHLORIDE 20 MEQ/50 ML RTU IV SCH ×3 (06:27→10:43)
--- NOTE | 2017-09-27 07:57 | RADIOLOGY REPORT (SQ) ---
EXAM DESCRIPTION: CHEST SINGLE VIEW COMPLETED DATE/TIME: 09/27/2017 6:56 am REASON FOR STUDY: resp failure COMPARISON: Chest x-ray 09/26/2017. EXAM PARAMETERS: NUMBER OF VIEWS: One view. TECHNIQUE: Single frontal radiographic view of the chest acquired. RADIATION DOSE: NA LIMITATIONS: None. FINDINGS: LUNGS AND PLEURA: Interval decrease in the bilateral perihilar airspace opacities. No siz able pleural effusion or pneumothorax. MEDIASTINUM AND HILAR STRUCTURES: No masses. Contour normal. HEART AND VASCULAR STRUCTURES: The heart is not enlarged. BONES: No acute findings. HARDWARE: The endotracheal tube has been removed. Right-sided Port-A-Cath with the tip overlying the region of the SVC. IMPRESSION: Interval improvement in the aeration of the lungs with decrease in the bilateral perihil ar airspace opacities. TECHNICAL DOCUMENTATION: JOB ID: [id number] [email or web address] Rights Reserved
[2017-09-27] MEDS: ACETYLCYSTEINE 20% SOLN 800 MG/4 ML VIAL.NEB NEB SCH ×2 (08:59→20:02)
--- NOTE | 2017-09-27 09:16 | PDOC PROGRESS REPORT ---
Subjective Progress Note for:: 09/27/17 Subjective:: Patient is seen on rounds. He is resting in bed. 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 Upper extremities are contracted, this is chronic. He has a loose congested cough. Nursing reports no issues overnight. Review of systems is unobtainable due to patient's mentation. There is presently no family at bedside. Reason For Visit: SEPSIS, RESP FAILURE Physical Exam Vital Signs: Temp Pulse Resp BP Pulse Ox 98.8 F 62 29 H 144/68 H 99 09/27/17 08:00 09/27/17 08:00 09/27/17 08:00 09/27/17 08:00 09/27/17 08:00 Intake & Output 09/26/17 09/27/17 09/28/17 06:59 06:59 06:59 Intake Total 1845 1509 Output Total 4100 4815 40 Balance -2255 -3306 -40 Weight 87 kg 83.7 kg General appearance: PRESENT: no acute distress - non verbal, does not follow any commands, well-developed, well-nourished Head exam: PRESENT: atraumatic, normocephalic Eye exam: PRESENT: conjunctiva pink, EOMI, PERRLA. ABSENT: scleral icterus Ear exam: PRESENT: normal external ear exam Mouth exam: PRESENT: moist, tongue midline Neck exam: ABSENT: carotid bruit, JVD, lymphadenopathy, thyromegaly Respiratory exam: PRESENT: rhonchi, symmetrical, unlabored, wheezes - bilateral expiratory wheezing Cardiovascular exam: PRESENT: RRR Pulses: PRESENT: normal dorsalis pedis pul Vascular exam: PRESENT: normal capillary refill GI/Abdominal exam: PRESENT: normal bowel sounds, soft. ABSENT: distended, guarding, mass, organolmegaly, rebound, tenderness Rectal exam: PRESENT: deferred Extremities exam: PRESENT: other - upper extremities contracted, lower extremities with bilateral foot drop Musculoskeletal exam: PRESENT: other - as above Neurological exam: PRESENT: altered, motor sensory deficit, other - upper extremities contracte. Nonverbal, does not follow any verbal commands Psychiatric exam: PRESENT: flat affect Skin exam: PRESENT: dry, warm Results Laboratory Results: 09/27/17 05:25 09/27/17 05:25 09/27/17 09/27/17 09/27/17 05:25 05:25 05:25 WBC 6.6 RBC 4.15 L Hgb 12.0 L Hct 36.3 L MCV 88 MCH 29.0 MCHC 33.1 RDW 17.1 H Plt Count 239 Seg Neutrophils % 66.5 Lymphocytes % 11.0 L Monocytes % 9.5 Eosinophils % 12.5 H Basophils % 0.5 Absolute Neutrophils 4.4 Absolute Lymphocytes 0.7 Absolute Monocytes 0.6 Absolute Eosinophils 0.8 H Absolute Basophils 0.0 Carbonic Acid 1.30 HCO3/H2CO3 Ratio 23:1 ABG pH 7.47 H ABG pCO2 43.3 ABG pO2 72.0 L ABG HCO3 30.9 H ABG O2 Saturation 95.3 ABG Base Excess 6.6 FiO2 2L Sodium 149.1 H Potassium 3.0 L* Chloride 105 Carbon Dioxide 33 H Anion Gap 11 BUN 8 Creatinine 0.91 Est GFR ( Amer) > 60 Est GFR (Non-Af Amer) > 60 Glucose 160 H Calcium 9.5 Magnesium 1.8 09/22/17 08:45 Blood Blood Culture - Final NO GROWTH IN 5 DAYS 09/26/17 09/26/17 09/26/17 23:35 23:35 23:35 Creatine Kinase 37 L CK-MB (CK-2) 0.83 Troponin I 0.013 NT-Pro-B Natriuret Pep 2220 H Impressions: Head CT 09/20/17 16:54 IMPRESSION: Stable CT appearance of the brain demonstrating left parieto- occipital encephalomalacia. Background of chronic microvascular and age- related involutional changes. No acute findings. EVIDENCE OF ACUTE STROKE: NO. KUB X-Ray 09/25/17 09:28 IMPRESSION: NO RADIOGRAPHIC EVIDENCE FOR ACUTE ABDOMINAL DISEASE. Chest X-Ray 09/27/17 06:00 IMPRESSION: Interval improvement in the aeration of the lungs with decrease in the bilateral perihilar airspace opacities. Assessment & Plan - Diagnosis (1) Respiratory failure Qualifiers: Chronicity: acute Respiratory failure complication: unspecified whether with hypoxia or hypercapnia Qualified Code(s): J96.00 - Acute respiratory failure, unspecified whether with hypoxia or hypercapnia Is this a current diagnosis for this admission?: Yes Plan: Improving back to the nasal cannula, he was extubated yesterday. Will continue IV antibiotics, nebulizer treatments and respiratory therapy. He may need NT suctioning (2) Hypernatremia Is this a current diagnosis for this admission?: Yes Plan: Likely due to over diuresing. 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; Z79.4 - [facility] (current) use of insulin Is this a current diagnosis for this admission?: Yes Plan: New current medications sliding scale coverage (5) Gram-positive cocci bacteremia Is this a current diagnosis for this admission?: Yes Plan: Continue current IV antibiotics (6) Hypokalemia Is this a current diagnosis for this admission?: Yes Plan: Replace and monitor (7) Malnutrition Qualifiers: Protein-calorie malnutrition severity: severe Is this a current diagnosis for this admission?: Yes (8) Acute encephalopathy Is this a current diagnosis for this admission?: Yes Plan: Resolved to baseline (9) Anemia of chronic disease Is this a current diagnosis for this admission?: Yes (10) Dehydration Plan: We will add free water (11) HTN (hypertension) Qualifiers: Hypertension type: essential hypertension Qualified Code(s): I10 - Essential (primary) hypertension Is this a current diagnosis for this admission?: Yes Plan: Continue current medication (12) History of stroke Is this a current diagnosis for this admission?: Yes (13) Hypercalcemia Is this a current diagnosis for this admission?: Yes Plan: Presently stable (14) Hyperlipidemia Qualifiers: Hyperlipidemia type: unspecified Qualified Code(s): E78.5 - Hyperlipidemia , unspecified (15) Sacral decubitus ulcer, stage III Is this a current diagnosis for this admission?: Yes Plan: Continue local wound care (16) G tube feedings Is this a current diagnosis for this admission?: Yes Plan: Continue feedings and increase free water (17) Seizure disorder Is this a current diagnosis for this admission?: Yes Plan: Continue home medications - Time Time Spent with patient: 25-34 minutes Total Critical Time (Minutes): 20 Medications reviewed and adjusted accordingly: Yes Anticipated discharge: SNF
[2017-09-27] MEDS: ALBUMIN HUMAN 50 ML IV SCH ×2 (10:42→21:36)
[2017-09-27] MEDS: FUROSEMIDE INJ/PF 40 MG/4 ML SDV IV SCH ×2 (10:43→21:40)
[2017-09-27] MEDS: ENOXAPARIN SODIUM INJ 60 MG/0.6 ML DISP.SYRIN SUBCUT SCH (10:44)
[2017-09-27] MEDS: PANTOPRAZOLE SODIUM 40 MG VIAL IV SCH ×2 (10:47→21:39)
[2017-09-27] MEDS: LEVETIRACETAM 750 MG in NORMAL SALINE 100 ML IV SCH ×2 (10:49→21:39)
[2017-09-27] MEDS: GENTAMICIN SULFATE 200 MG in DEXTROSE 5%-WATER 100 ML IV SCH (10:50)
[2017-09-27] MEDS: VANCOMYCIN HCL 1,250 MG in DEXTROSE 5%-WATER 250 ML IV SCH ×2 (10:50→21:41)
[2017-09-27] MEDS: DEXTROSE 5%-1/2 NORMAL SALINE 1,000 ML IV PRN (10:52)
[2017-09-27] MEDS: IPRATROPIUM/ALBUTEROL 0.5-2.5 MG/3 ML AMPUL NEB PRN (17:08)
[2017-09-27 22:30] LABS: VANCOMYCIN,TROUGH 37.1 ug/mL (5.0-20.0)
[2017-09-28] MEDS: IPRATROPIUM/ALBUTEROL 0.5-2.5 MG/3 ML AMPUL NEB PRN (02:25)
[2017-09-28] MEDS: IPRATROPIUM/ALBUTEROL 0.5-2.5 MG/3 ML AMPUL NEB SCH ×4 (02:25→20:39)
[2017-09-28] MEDS: DEXTROSE 5%-1/2 NORMAL SALINE 1,000 ML IV PRN (02:36)
[2017-09-28 05:14] LABS: ANION GAP 11 (5-19); BLOOD UREA NITROGEN 9 mg/dL (7-20); CALCIUM 9.2 mg/dL (8.4-10.2); CARBON DIOXIDE 33 mmol/L (22-30); CHLORIDE 101 mmol/L (98-107); GLUCOSE 199 mg/dL (75-110); POTASSIUM 3.1 mmol/L (3.6-5.0); SODIUM 144.6 mmol/L (137-145)
[2017-09-28] MEDS: INSULIN REG, HUMAN 100 UNIT/ML 3 ML VIAL (PYX) SUBCUT PRN ×2 (05:31→13:05)
[2017-09-28] MEDS ORDERED: POTASSIUM CHLORIDE 20 MEQ/15 ML UDCUP ONE (05:59)
[2017-09-28] MEDS ORDERED: POTASSIUM CHLORIDE 10 MEQ TABLET.SA PO SCH (06:00)
[2017-09-28] MEDS ORDERED: POTASSIUM CHLORIDE 20 MEQ/15 ML UDCUP PO ONE ×3 (06:15→13:00)
[2017-09-28] MEDS ORDERED: POTASSIUM CHLORIDE 20 MEQ/15 ML UDCUP PO SCH (08:00)
[2017-09-28] MEDS: ACETYLCYSTEINE 20% SOLN 800 MG/4 ML VIAL.NEB NEB SCH ×2 (08:53→20:39)
--- NOTE | 2017-09-28 08:55 | PDOC PROGRESS REPORT ---
Subjective Progress Note for:: 09/28/17 Subjective:: Patient is seen on rounds. He is resting in bed. 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 Upper extremities are contracted, this is chronic. He is now on room air. Cough has mostly resolved. Nursing reports no issues overnight. Review of systems is unobtainable due to patient's mentation. There is presently no family at bedside. Reason For Visit: SEPSIS, RESP FAILURE Physical Exam Vital Signs: Temp Pulse Resp BP Pulse Ox 97.9 F 85 33 H 108/57 L 100 09/28/17 08:00 09/28/17 08:00 09/28/17 08:00 09/28/17 08:00 09/28/17 08:00 Intake & Output 09/27/17 09/28/17 09/29/17 06:59 06:59 06:59 Intake Total 1509 3306 Output Total 4815 2600 45 Balance -3306 706 -45 Weight 83.7 kg 83.5 kg General appearance: PRESENT: no acute distress, well-developed, well-nourished, other - unresponsive to verbal or tactile stimuli Head exam: PRESENT: atraumatic, normocephalic Eye exam: PRESENT: conjunctiva pink, EOMI, PERRLA. ABSENT: scleral icterus Ear exam: PRESENT: normal external ear exam Mouth exam: PRESENT: moist, tongue midline Teeth exam: PRESENT: poor dentation Neck exam: ABSENT: carotid bruit, JVD, lymphadenopathy, thyromegaly Respiratory exam: PRESENT: decreased breath sounds, symmetrical, unlabored Cardiovascular exam: PRESENT: RRR. ABSENT: diastolic murmur, rubs, systolic murmur Pulses: PRESENT: normal carotid pulses, normal radial pulses Vascular exam: PRESENT: normal capillary refill GI/Abdominal exam: PRESENT: normal bowel sounds, soft, other - G tube in place. ABSENT: distended, guarding, mass, organolmegaly, rebound, tenderness Rectal exam: PRESENT: deferred Gentrourinary exam: PRESENT: indwelling catheter Extremities exam: PRESENT: other Musculoskeletal exam: PRESENT: deformity, other - upper extremities contracted. Lower extremities with bilateral foot drop Neurological exam: PRESENT: altered, CN II-XII grossly intact, aphasic, other - Upper extremities contracted, bilateral lower extremities with foot drop. Aphasic and unresponsive to verbal stimulus from prior CVAs Psychiatric exam: PRESENT: flat affect Skin exam: PRESENT: dry, warm, other - Stage 2 sacral decubitus Results Laboratory Results: 09/27/17 05:25 09/28/17 04:40 09/27/17 09/28/17 15:15 04:40 Sodium 144.6 Potassium 3.6 3.1 L Chloride 101 Carbon Dioxide 33 H Anion Gap 11 BUN 9 Creatinine 0.86 Est GFR ( Amer) > 60 Est GFR (Non-Af Amer) > 60 Glucose 199 H Calcium 9.2 09/22/17 12:00 Blood Blood Culture - Final NO GROWTH IN 5 DAYS 09/22/17 08:45 Blood Blood Culture - Final NO GROWTH IN 5 DAYS 09/26/17 09/26/17 09/26/17 23:35 23:35 23:35 Creatine Kinase 37 L CK-MB (CK-2) 0.83 Troponin I 0.013 NT-Pro-B Natriuret Pep 2220 H Impressions: Head CT 09/20/17 16:54 IMPRESSION: Stable CT appearance of the brain demonstrating left parieto- occipital encephalomalacia. Background of chronic microvascular and age- related involutional changes. No acute findings. EVIDENCE OF ACUTE STROKE: NO. KUB X-Ray 09/25/17 09:28 IMPRESSION: NO RADIOGRAPHIC EVIDENCE FOR ACUTE ABDOMINAL DISEASE. Chest X-Ray 09/27/17 06:00 IMPRESSION: Interval improvement in the aeration of the lungs with decrease in the bilateral perihilar airspace opacities. Assessment & Plan - Diagnosis (1) Respiratory failure Qualifiers: Chronicity: acute Respiratory failure complication: unspecified whether with hypoxia or hypercapnia Qualified Code(s): J96.00 - Acute respiratory failure, unspecified whether with hypoxia or hypercapnia Is this a current diagnosis for this admission?: Yes Plan: Extubated 2 days ago, now on room air Will continue IV antibiotics for 2 more days for 10 day course, nebulizer treatments and respiratory therapy. He may need NT suctioning (2) Hypernatremia Is this a current diagnosis for this admission?: Yes Plan: Resolved. 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 On appropriate antibiotic coverage will continue for 2 more days for 10 day total (6) Hypokalemia Is this a current diagnosis for this admission?: Yes Plan: Replace and monitor (7) Malnutrition Qualifiers: Protein-calorie malnutrition severity: severe Is this a current diagnosis for this admission?: Yes Plan: Continue tube feeds at goal, free water (8) Acute encephalopathy Is this a current diagnosis for this admission?: Yes Plan: Resolved to baseline (9) Anemia of chronic disease Is this a current diagnosis for this admission?: Yes Plan: Stable. No over bleeding (10) Dehydration Plan: Resolved (11) HTN (hypertension) Qualifiers: Hypertension type: essential hypertension Qualified Code(s): I10 - Essential (primary) hypertension Is this a current diagnosis for this admission?: Yes Plan: Continue current medication (12) History of stroke Is this a current diagnosis for this admission?: Yes Plan: Unchanged, non verbal, contracted. Follows no commands. Frequent admissions for aspiration pneumonia and dehydration. Multiple goals of care discussions with daughter his MPOA. Who wishes to continue aggressive care and full code status (13) Hypercalcemia Is this a current diagnosis for this admission?: Yes Plan: Presently stable (14) Hyperlipidemia Qualifiers: Hyperlipidemia type: unspecified Qualified Code(s): E78.5 - Hyperlipidemia , unspecified (15) Sacral decubitus ulcer, stage III Is this a current diagnosis for this admission?: Yes Plan: Continue local wound care (16) G tube feedings Is this a current diagnosis for this admission?: Yes Plan: Continue feedings and increase free water (17) Seizure disorder Is this a current diagnosis for this admission?: Yes Plan: Continue home medications - Time Time Spent with patient: 25-34 minutes Total Critical Time (Minutes): 15 Medications reviewed and adjusted accordingly: Yes Anticipated discharge: SNF Within: within 72 hours
[2017-09-28] MEDS: ENOXAPARIN SODIUM INJ 60 MG/0.6 ML DISP.SYRIN SUBCUT SCH (10:14)
[2017-09-28] MEDS: GENTAMICIN SULFATE 200 MG in DEXTROSE 5%-WATER 100 ML IV SCH (10:15)
[2017-09-28] MEDS: VANCOMYCIN HCL 1,250 MG in DEXTROSE 5%-WATER 250 ML IV SCH (10:15)
[2017-09-28] MEDS: FUROSEMIDE INJ/PF 40 MG/4 ML SDV IV SCH (10:17)
[2017-09-28] MEDS: PANTOPRAZOLE SODIUM 40 MG VIAL IV SCH ×2 (10:18→22:51)
[2017-09-28] MEDS: LEVETIRACETAM 750 MG in NORMAL SALINE 100 ML IV SCH ×2 (10:22→22:50)
[2017-09-28 11:09] LABS: GENTAMICIN-TROUGH 2.2 ug/mL (<2.0); VANCOMYCIN,TROUGH 34.4 ug/mL (5.0-20.0)
[2017-09-28 16:05] LABS: GENTAMICIN-PEAK 14.9 ug/mL (5.0-10.0)
[2017-09-29] MEDS: IPRATROPIUM/ALBUTEROL 0.5-2.5 MG/3 ML AMPUL NEB SCH ×4 (01:44→20:03)
[2017-09-29 05:21] LABS: ANION GAP 10 (5-19); BLOOD UREA NITROGEN 13 mg/dL (7-20); CALCIUM 9.4 mg/dL (8.4-10.2); CARBON DIOXIDE 32 mmol/L (22-30); CHLORIDE 104 mmol/L (98-107); GLUCOSE 185 mg/dL (75-110); MAGNESIUM 1.7 mg/dL (1.6-2.3); POTASSIUM 3.9 mmol/L (3.6-5.0); SODIUM 145.8 mmol/L (137-145)
[2017-09-29] MEDS: INSULIN REG, HUMAN 100 UNIT/ML 3 ML VIAL (PYX) SUBCUT PRN (05:41)
[2017-09-29] MEDS: ACETYLCYSTEINE 20% SOLN 800 MG/4 ML VIAL.NEB NEB SCH ×2 (08:47→20:02)
--- NOTE | 2017-09-29 09:26 | PDOC PROGRESS REPORT ---
Subjective Progress Note for:: 09/29/17 Subjective:: Nursing states the patient has done well overnight. Nursing states that patient is receiving Lasix IV. Reason For Visit: SEPSIS, RESP FAILURE Physical Exam Vital Signs: Temp Pulse Resp BP Pulse Ox 98.2 F 68 26 H 118/64 100 09/29/17 09:00 09/29/17 08:47 09/29/17 09:00 09/29/17 08:00 09/29/17 09:00 Intake & Output 09/28/17 09/29/17 09/30/17 06:59 06:59 06:59 Intake Total 3306 1404 Output Total 2600 1685 Balance 706 -281 Weight 83.5 kg 83.2 kg General appearance: PRESENT: no acute distress, well-developed, well-nourished Head exam: PRESENT: atraumatic, normocephalic Eye exam: PRESENT: other - Eyes closed Ear exam: PRESENT: normal external ear exam Mouth exam: PRESENT: moist, tongue midline Neck exam: ABSENT: carotid bruit, JVD, lymphadenopathy, thyromegaly Respiratory exam: PRESENT: other - Good breath sounds heard anteriorly in upper lobes, diminished breath sounds at bases, no accessory muscle use Cardiovascular exam: PRESENT: RRR. ABSENT: diastolic murmur, rubs, systolic murmur Pulses: PRESENT: normal dorsalis pedis pul Vascular exam: PRESENT: normal capillary refill GI/Abdominal exam: PRESENT: normal bowel sounds, soft, other - G-tube in place. ABSENT: distended, guarding, mass, organolmegaly, rebound, tenderness Rectal exam: PRESENT: deferred Extremities exam: PRESENT: other - Bilateral upper extremity contractures. ABSENT: calf tenderness, clubbing, pedal edema Musculoskeletal exam: PRESENT: other - Bilateral upper extremity contractures Neurological exam: PRESENT: other - Patient aphasic, coughing, appears in no acute distress Psychiatric exam: PRESENT: other - Difficult to evaluate. Skin exam: PRESENT: dry, intact, warm, other - Stage 2 Sacral Decubitus Ulcer.. ABSENT: cyanosis, rash Results Laboratory Results: 09/27/17 05:25 09/29/17 05:00 09/29/17 05:00 Sodium 145.8 H Potassium 3.9 Chloride 104 Carbon Dioxide 32 H Anion Gap 10 BUN 13 Creatinine 1.01 Est GFR ( Amer) > 60 Est GFR (Non-Af Amer) > 60 Glucose 185 H Calcium 9.4 Magnesium 1.7 09/25/17 14:30 Tracheal Aspirate Gram Stain - Final 09/25/17 14:30 Tracheal Aspirate Sputum Culture - Final Pseudomonas Aeruginosa Normal Nova Absent 09/26/17 09/26/17 09/26/17 23:35 23:35 23:35 Creatine Kinase 37 L CK-MB (CK-2) 0.83 Troponin I 0.013 NT-Pro-B Natriuret Pep 2220 H Impressions: Head CT 09/20/17 16:54 IMPRESSION: Stable CT appearance of the brain demonstrating left parieto- occipital encephalomalacia. Background of chronic microvascular and age- related involutional changes. No acute findings. EVIDENCE OF ACUTE STROKE: NO. KUB X-Ray 09/25/17 09:28 IMPRESSION: NO RADIOGRAPHIC EVIDENCE FOR ACUTE ABDOMINAL DISEASE. Chest X-Ray 09/27/17 06:00 IMPRESSION: Interval improvement in the aeration of the lungs with decrease in the bilateral perihilar airspace opacities. Assessment & Plan - Diagnosis (1) Sepsis Qualifiers: Sepsis type: sepsis due to unspecified organism Qualified Code(s): A41.9 - Sepsis, unspecified organism Is this a current diagnosis for this admission?: Yes Plan: Secondary to Enterococcus faecalis: Patient is currently on appropriate antibiotics and will continue present treatment. (2) Respiratory failure Qualifiers: Chronicity: acute Respiratory failure complication: unspecified whether with hypoxia or hypercapnia Qualified Code(s): J96.00 - Acute respiratory failure, unspecified whether with hypoxia or hypercapnia Is this a current diagnosis for this admission?: Yes Plan: Acute respiratory failure secondary to sepsis status post extubation: Patient is doing well we will continue to monitor patient closely. (3) Aspiration pneumonia Qualifiers: Aspiration pneumonia type: unspecified Laterality: unspecified laterality Lung location: unspecified part of lung Qualified Code(s): J69.0 - Pneumonitis due to inhalation of food and vomit Is this a current diagnosis for this admission?: Yes Plan: Most likely gram-positive organism: Patient will continue on current antibiotic regimen. (4) DM2 (diabetes mellitus, type 2) Qualifiers: Diabetes mellitus complication status: with unspecified complications Diabetes mellitus longterm insulin use: with longterm use Qualified Code(s) : E11.8 - Type 2 diabetes mellitus with unspecified complications; Z79.4 - jail (current) use of insulin; Z79.4 - jail (current) use of insulin; Z79.4 - terminal gauger (current) use of insulin; Z79.4 - terminal gauger (current) use of insulin Is this a current diagnosis for this admission?: Yes Plan: We will continue current insulin regimen. (5) Fluid overload Is this a current diagnosis for this admission?: Yes Plan: Patient had been placed on Lasix which was discontinued this morning. (6) Gram-positive cocci bacteremia Is this a current diagnosis for this admission?: Yes Plan: Secondary to Enterococcus faecalis: We will continue current treatment. (7) Hypernatremia Is this a current diagnosis for this admission?: Yes Plan: Secondary to dehydration: Patient will continue to receive free water. Lasix has been discontinued. (8) Hypokalemia Is this a current diagnosis for this admission?: Yes (9) Dehydration Is this a current diagnosis for this admission?: Yes Plan: We will continue free water. (10) Dementia Qualifiers: Dementia type: unspecified type Dementia behavioral disturbance: without behavioral disturbance Qualified Code(s): F03.90 - Unspecified dementia without behavioral disturbance Is this a current diagnosis for this admission?: Yes Plan: Supportive care. (11) Dysphagia Is this a current diagnosis for this admission?: Yes Plan: G-tube in place. Will continue tube feeds. (12) Hypercalcemia Is this a current diagnosis for this admission?: Yes Plan: Secondary to dehydration: Resolved with IV fluid administration. (13) Sacral decubitus ulcer, stage III Is this a current diagnosis for this admission?: Yes Plan: Continue current wound care regimen. (14) G tube feedings Is this a current diagnosis for this admission?: Yes Plan: Continue tube feeds. (15) Seizure disorder Is this a current diagnosis for this admission?: Yes Plan: We will continue patient's home medications. (16) DVT prophylaxis Is this a current diagnosis for this admission?: Yes Plan: Heparin subcu - Time Time Spent with patient: 15-24 minutes
[2017-09-29] MEDS ORDERED: VANCOMYCIN HCL 1,250 MG in DEXTROSE 5%-WATER 250 ML IV SCH (10:00)
[2017-09-29] MEDS ORDERED: FUROSEMIDE INJ/PF 40 MG/4 ML SDV IV SCH (10:00)
[2017-09-29] MEDS: LEVETIRACETAM 750 MG in NORMAL SALINE 100 ML IV SCH ×2 (11:03→22:27)
[2017-09-29] MEDS: PANTOPRAZOLE SODIUM 40 MG VIAL IV SCH (11:04)
[2017-09-29] MEDS: ENOXAPARIN SODIUM INJ 60 MG/0.6 ML DISP.SYRIN SUBCUT SCH (11:04)
[2017-09-30] MEDS: INSULIN REG, HUMAN 100 UNIT/ML 3 ML VIAL (PYX) SUBCUT PRN ×3 (00:03→12:59)
[2017-09-30] MEDS: IPRATROPIUM/ALBUTEROL 0.5-2.5 MG/3 ML AMPUL NEB SCH ×4 (01:49→20:01)
[2017-09-30] MEDS: ACETYLCYSTEINE 20% SOLN 800 MG/4 ML VIAL.NEB NEB SCH ×2 (08:41→20:02)
[2017-09-30] MEDS: GENTAMICIN SULFATE 110 MG in DEXTROSE 5%-WATER 100 ML IV SCH (09:22)
[2017-09-30] MEDS: ENOXAPARIN SODIUM INJ 60 MG/0.6 ML DISP.SYRIN SUBCUT SCH (09:23)
[2017-09-30] MEDS: LEVETIRACETAM 750 MG in NORMAL SALINE 100 ML IV SCH ×2 (10:48→21:58)
--- NOTE | 2017-09-30 16:00 | PDOC PROGRESS REPORT ---
Subjective Progress Note for:: 09/30/17 Subjective:: Daughter states that she is concerned about abscess in prostate. Daughter also states that she is concerned that pt has not completely returned to his baseline of watching TV. Reason For Visit: SEPSIS, RESP FAILURE Physical Exam Vital Signs: Temp Pulse Resp BP Pulse Ox 98.5 F 75 18 114/51 L 97 09/30/17 09:05 09/30/17 14:00 09/30/17 13:33 09/30/17 09:05 09/30/17 13:33 Intake & Output 09/29/17 09/30/17 10/01/17 06:59 06:59 06:59 Intake Total 1404 1877 Output Total 1685 365 Balance -281 1512 Weight 83.2 kg General appearance: PRESENT: well-developed, well-nourished, other - sleeping Head exam: PRESENT: atraumatic, normocephalic Eye exam: PRESENT: conjunctiva pink, EOMI. ABSENT: scleral icterus Ear exam: PRESENT: normal external ear exam Mouth exam: PRESENT: moist, tongue midline Neck exam: ABSENT: carotid bruit, JVD, lymphadenopathy, thyromegaly Respiratory exam: PRESENT: clear to auscultation yokasta. ABSENT: rales, rhonchi, wheezes Cardiovascular exam: PRESENT: RRR. ABSENT: diastolic murmur, rubs, systolic murmur Pulses: PRESENT: normal dorsalis pedis pul Vascular exam: PRESENT: normal capillary refill GI/Abdominal exam: PRESENT: normal bowel sounds, soft. ABSENT: distended, guarding, mass, organolmegaly, rebound, tenderness Rectal exam: PRESENT: deferred Extremities exam: PRESENT: other - bilateral upper ext contractures.. ABSENT: calf tenderness, clubbing, pedal edema Musculoskeletal exam: PRESENT: other - bilateral upper ext contractures Neurological exam: PRESENT: other - sleeping. Psychiatric exam: PRESENT: other - sleeping Skin exam: PRESENT: other - sleeping Results Laboratory Results: 09/27/17 05:25 09/29/17 05:00 09/26/17 09/26/17 09/26/17 23:35 23:35 23:35 Creatine Kinase 37 L CK-MB (CK-2) 0.83 Troponin I 0.013 NT-Pro-B Natriuret Pep 2220 H Impressions: Head CT 09/20/17 16:54 IMPRESSION: Stable CT appearance of the brain demonstrating left parieto- occipital encephalomalacia. Background of chronic microvascular and age- related involutional changes. No acute findings. EVIDENCE OF ACUTE STROKE: NO. KUB X-Ray 09/25/17 09:28 IMPRESSION: NO RADIOGRAPHIC EVIDENCE FOR ACUTE ABDOMINAL DISEASE. Chest X-Ray 09/27/17 06:00 IMPRESSION: Interval improvement in the aeration of the lungs with decrease in the bilateral perihilar airspace opacities. Assessment & Plan - Diagnosis (1) Sepsis Qualifiers: Sepsis type: sepsis due to unspecified organism Qualified Code(s): A41.9 - Sepsis, unspecified organism Is this a current diagnosis for this admission?: Yes Plan: Secondary to Enterococcus faecalis: Patient is currently on appropriate antibiotics and will continue present treatment. (2) Respiratory failure Qualifiers: Chronicity: acute Respiratory failure complication: unspecified whether with hypoxia or hypercapnia Qualified Code(s): J96.00 - Acute respiratory failure, unspecified whether with hypoxia or hypercapnia Is this a current diagnosis for this admission?: Yes Plan: Acute respiratory failure secondary to sepsis status post extubation: Patient is doing well we will continue to monitor patient closely. (3) Aspiration pneumonia Qualifiers: Aspiration pneumonia type: unspecified Laterality: unspecified laterality Lung location: unspecified part of lung Qualified Code(s): J69.0 - Pneumonitis due to inhalation of food and vomit Is this a current diagnosis for this admission?: Yes Plan: Most likely gram-positive organism: Patient will continue on current antibiotic regimen. (4) DM2 (diabetes mellitus, type 2) Qualifiers: Diabetes mellitus complication status: with unspecified complications Diabetes mellitus terminal gauger supervisor insulin use: with terminal gauger supervisor use Qualified Code(s) : E11.8 - Type 2 diabetes mellitus with unspecified complications; Z79.4 - oil heaterman (current) use of insulin; Z79.4 - detention (current) use of insulin; Z79.4 - detention (current) use of insulin; Z79.4 - detention (current) use of insulin Is this a current diagnosis for this admission?: Yes Plan: We will continue current insulin regimen. (5) Fluid overload Is this a current diagnosis for this admission?: Yes Plan: resolved. (6) Gram-positive cocci bacteremia Is this a current diagnosis for this admission?: Yes Plan: Secondary to Enterococcus faecalis: We will continue current treatment. (7) Hypernatremia Is this a current diagnosis for this admission?: Yes Plan: Secondary to dehydration: will continue to receive free water. (8) Hypokalemia Is this a current diagnosis for this admission?: Yes Plan: resolved (9) Dehydration Is this a current diagnosis for this admission?: Yes Plan: We will continue free water. (10) Dementia Qualifiers: Dementia type: unspecified type Dementia behavioral disturbance: without behavioral disturbance Qualified Code(s): F03.90 - Unspecified dementia without behavioral disturbance Is this a current diagnosis for this admission?: Yes Plan: Supportive care. (11) Dysphagia Is this a current diagnosis for this admission?: Yes Plan: G-tube in place. Will continue tube feeds. (12) Hypercalcemia Is this a current diagnosis for this admission?: Yes Plan: Secondary to dehydration: Resolved with IV fluid administration. (13) Sacral decubitus ulcer, stage III Is this a current diagnosis for this admission?: Yes Plan: Continue current wound care regimen. (14) G tube feedings Is this a current diagnosis for this admission?: Yes Plan: Continue tube feeds. (15) Seizure disorder Is this a current diagnosis for this admission?: Yes Plan: We will continue patient's home medications. (16) HX of abscess Is this a current diagnosis for this admission?: Yes Plan: Will order CT of Pelvis and Consult Urology. (17) DVT prophylaxis Is this a current diagnosis for this admission?: Yes Plan: Heparin subcu - Time Time Spent with patient: 25-34 minutes
--- NOTE | 2017-10-01 00:01 | RADIOLOGY REPORT (SQ) ---
EXAM DESCRIPTION: CT PELVIS WITH COMPLETED DATE/TIME: 09/30/2017 11:12 pm REASON FOR STUDY: Evaluate for Abscess (around prostate) COMPARISON: 04/23/2017 TECHNIQUE: CT scan of the pelvis performed with intravenous contrast. Images reviewed with soft tis jeff and bone windows. Reconstructed coronal and sagittal MPR images reviewed. All images stored on PACS. Contrast administered, 75 mL Omnipaque 350. Renal function BUN [address] scanners at this facility use dose modulation, iterative reconstruction, and/or weight based d osing when appropriate to reduce radiation dose to as low as reasonably achievable (ALARA). [facility]: Dose Right [facility]: CareDose [facility]: Dose Right [facility]: Teradose 4D [facility]: Smart ip.access RADIATION DOSE: CT Rad equipment meets quality standard of care and radiation dose reduction techniq ues were employed. CTDIvol: 13.1 - 13.1 mGy. DLP: 1101 mGy-cm. mGy. LIMITATIONS: None. FINDINGS: There is an ovoid to 3.6 cm rim enhancing region in the right prostate gland which could r eflect an abscess, this is a new finding compared with 04/23/2017. Vazquez catheter is present in the b ladder. Moderate bladder wall thickening, chronic appearing. Moderate right scrotal hydrocele. No acute osseous findings. OTHER: No other significant finding. IMPRESSION: There is an ovoid to 3.6 cm rim enhancing region in the right prostate gland which could reflect an abscess, this is a new finding compared with 04/23/2017. TECHNICAL DOCUMENTATION: JOB ID: [id number] [place]-72 Quality ID # [id number]: Final reports with documentation of one or more dose reduction techniques (e.g., Au tomated exposure control, adjustment of the mA and/or kV according to patient size, use of iterative reconstruction technique) 2010 [employer]- All Rights Reserved
[2017-10-01] MEDS: IPRATROPIUM/ALBUTEROL 0.5-2.5 MG/3 ML AMPUL NEB SCH ×4 (02:46→19:43)
[2017-10-01 06:39] LABS: ABSOLUTE BASOPHILS # (AUTO) 0.1 10^3/uL (0.0-0.2); ABSOLUTE EOSINOPHILS # (AUTO) 0.6 10^3/uL (0.0-0.6); ABSOLUTE MONOCYTES (AUTO) 0.6 10^3/uL (0.1-1.4); ABSOLUTE NEUT (AUTO) 5.9 10^3/uL (1.7-8.2); BASOPHILS % (AUTO) 0.6 % (0-2); EOSINOPHILS % (AUTO) 7.8 % (0-6); HEMATOCRIT 35.4 % (37.9-51.0); HEMOGLOBIN 11.6 g/dL (13.5-17.0); LYMPHOCYTES % (AUTO) 12.6 % (13-45); MEAN CORPUSCULAR HEMOGLOBIN 29.1 pg (27.0-33.4); MEAN CORPUSCULAR HGB CONC 32.9 g/dL (32.0-36.0); MEAN CORPUSCULAR VOLUME 89 fl (80-97); MONOCYTES % (AUTO) 7.2 % (3-13); PLATELET COUNT 336 10^3/uL (150-450); RED BLOOD COUNT 4.01 10^6/uL (4.35-5.55); RED CELL DISTRIBUTION WIDTH 17.1 % (11.5-14.0); SEGMENTED NEUTROPHILS % (AUTO) 71.8 % (42-78); TOTAL CELLS COUNTED % (AUTO) 100 %; WHITE BLOOD COUNT 8.2 10^3/uL (4.0-10.5)
[2017-10-01 06:50] LABS: ALANINE AMINOTRANSFERASE 27 U/L (21-72); ALBUMIN 3.5 g/dL (3.5-5.0); ALKALINE PHOSPHATASE 70 U/L (38-126); ANION GAP 10 (5-19); ASPARTATE AMINO TRANSFERASE 20 U/L (17-59); BILIRUBIN,DIRECT 0.3 mg/dL (0.0-0.4); BILIRUBIN,TOTAL 0.3 mg/dL (0.2-1.3); BLOOD UREA NITROGEN 18 mg/dL (7-20); CALCIUM 9.3 mg/dL (8.4-10.2); CARBON DIOXIDE 31 mmol/L (22-30); CHLORIDE 102 mmol/L (98-107); GLUCOSE 207 mg/dL (75-110); MAGNESIUM 1.9 mg/dL (1.6-2.3); SODIUM 142.7 mmol/L (137-145); TOTAL PROTEIN 7.2 g/dL (6.3-8.2)
[2017-10-01] MEDS: ACETYLCYSTEINE 20% SOLN 800 MG/4 ML VIAL.NEB NEB SCH ×2 (08:16→19:43)
[2017-10-01] MEDS: LEVETIRACETAM 750 MG in NORMAL SALINE 100 ML IV SCH ×2 (10:48→21:38)
[2017-10-01] MEDS: ENOXAPARIN SODIUM INJ 60 MG/0.6 ML DISP.SYRIN SUBCUT SCH (10:48)
--- NOTE | 2017-10-01 11:00 | PDOC CONSULTATION ---
Consultation Consult Date: 10/01/17 Attending physician:: RAMONITA CALLOWAY Consult reason:: UTI, Sepsis, Urinary retention History of Present Illness Admission Date/PCP: 09/20/17 19:48 MARGARITA ZARATE MD Patient complains of: Pt not able to provide hx due to AMS. History of Present Illness: History obtained from nursing notes and previous consultations as the patient is non-verbal/unable to provide history. 76/M with known history of prostatic abscess since 2017, managed conservatively with antibiotics and rios catheter. Admitted for sepsis/UTI. Repeat imaging demonstrates a 3 cm fluid collection in right lobe of prostate consistent with abscess. Past Medical History Cardiac Medical History: Reports: Myocardial Infarction, Hyperlipidema, Hypertension, Other - prostate abscess Pulmonary Medical History: Reports: Chronic Obstructive Pulmonary Disease (COPD) , Pneumonia EENT Medical History: Denies: Eyes Neurological Medical History: Reports: Ischemic CVA, Seizures Endocrine Medical History: Reports: Diabetes Mellitus Type 1, Diabetes Mellitus Type 2 Denies: Hyperthyroidism, Hypothyroidism Renal/ History Note: prostate abscess, indwelling rios, recurrent uti GI Medical History: Reports: Gastroesophageal Reflux Disease - PEG tube post CVA Denies: Cirrhosis, Hepatitis Musculoskeltal Medical History: Reports: Other - poor mobility Psychiatric Medical History: Reports: Dementia, Depression Hematology: Reports: Anemia Past Surgical History Past Surgical History: Reports: Orthopedic Surgery - Right knee surgery. Titanium jelani, left femur after accident., Other - PEG tube placed, previously considered not an operative candidate for TURP Social History Information Source: Relative, [facility] Records Lives with: Long-Term Smoking Status: Former Smoker Frequency of Alcohol Use: None Hx Recreational Drug Use: No Drugs: None Hx Prescription Drug Abuse: No - Advance Directive Resuscitation Status: Full Code Family History Family History: None, Other Parental Family History Reviewed: Yes Children Family History Reviewed: Yes Sibling(s) Family History Reviewed.: Yes - pt is the oldest of his siblings. Medication/Allergy Home Medications: Cranberry Fruit Extract [Cranberry 500 mg Capsule] 500 mg PO DAILY 09/21/17 Famotidine [Pepcid 20 mg Tablet] 20 mg PO BID 09/21/17 Guaifenesin [Siltussin SA] 15 ml PO Q6 09/21/17 Insulin Lispro [Humalog Insulin (Lispro) 100 unit/mL] 0 units SQ .SLIDING SCALE 09/21/17 Isosorbide Dinitrate [Isordil Titradose 20 mg Tablet] 20 mg PO Q8 09/21/17 Levetiracetam [Keppra] 750 mg PO Q12 09/21/17 Metoprolol Tartrate [Lopressor 25 mg Tablet] 25 mg PO Q12 09/21/17 Multivitamin/Iron/Folic Acid [Centrum Adults Tablet] 1 tab PO DAILY 09/21/17 Allergies/Adverse Reactions: divalproex sodium [From Depakote] Allergy (Verified 01/17/17 17:13) oxycodone [Oxycodone] Adverse Reaction (Intermediate, Verified 01/12/17 19:24) agitation simvastatin [From Zocor] Adverse Reaction (Unknown, Verified 01/12/17 19:24) dysarthria Physical Exam Vital Signs: Temp Pulse Resp BP Pulse Ox 98.6 F 73 24 H 137/69 H 100 10/01/17 07:51 10/01/17 07:51 10/01/17 07:51 10/01/17 07:51 10/01/17 07:51 Intake & Output 09/30/17 10/01/17 10/02/17 06:59 06:59 06:59 Intake Total 1877 2583 Output Total 365 450 Balance 1512 2133 Weight 87.2 kg General appearance: PRESENT: no acute distress, morbidly obese Head exam: PRESENT: atraumatic Eye exam: PRESENT: conjunctiva pink Mouth exam: PRESENT: moist Neck exam: PRESENT: full ROM Respiratory exam: PRESENT: unlabored Cardiovascular exam: PRESENT: RRR GI/Abdominal exam: PRESENT: soft Rectal exam: PRESENT: deferred Gentrourinary exam: PRESENT: other - Rios catheter in place with mild paraphimosis. Foreskin reduced at bedside. Edema present. No glans necrosis or tissue sloughing. Extremities exam: PRESENT: +2 edema Musculoskeletal exam: PRESENT: other - non-ambulatory Neurological exam: PRESENT: awake. ABSENT: oriented to person, oriented to place, oriented to time Psychiatric exam: PRESENT: flat affect. ABSENT: agitated Results Laboratory Results: 10/01/17 06:10 10/01/17 06:10 10/01/17 10/01/17 06:10 06:10 WBC 8.2 RBC 4.01 L Hgb 11.6 L Hct 35.4 L MCV 89 MCH 29.1 MCHC 32.9 RDW 17.1 H Plt Count 336 Seg Neutrophils % 71.8 Lymphocytes % 12.6 L Monocytes % 7.2 Eosinophils % 7.8 H Basophils % 0.6 Absolute Neutrophils 5.9 Absolute Lymphocytes 1.0 Absolute Monocytes 0.6 Absolute Eosinophils 0.6 Absolute Basophils 0.1 Sodium 142.7 Potassium 4.0 Chloride 102 Carbon Dioxide 31 H Anion Gap 10 BUN 18 Creatinine 0.91 Est GFR ( Amer) > 60 Est GFR (Non-Af Amer) > 60 Glucose 207 H Calcium 9.3 Magnesium 1.9 Total Bilirubin 0.3 AST 20 ALT 27 Alkaline Phosphatase 70 Total Protein 7.2 Albumin 3.5 09/26/17 09/26/17 09/26/17 23:35 23:35 23:35 Creatine Kinase 37 L CK-MB (CK-2) 0.83 Troponin I 0.013 NT-Pro-B Natriuret Pep 2220 H Impressions: Head CT 09/20/17 16:54 IMPRESSION: Stable CT appearance of the brain demonstrating left parieto- occipital encephalomalacia. Background of chronic microvascular and age- related involutional changes. No acute findings. EVIDENCE OF ACUTE STROKE: NO. KUB X-Ray 09/25/17 09:28 IMPRESSION: NO RADIOGRAPHIC EVIDENCE FOR ACUTE ABDOMINAL DISEASE. Chest X-Ray 09/27/17 06:00 IMPRESSION: Interval improvement in the aeration of the lungs with decrease in the bilateral perihilar airspace opacities. Pelvis CT 09/30/17 00:00 IMPRESSION: There is an ovoid to 3.6 cm rim enhancing region in the right prostate gland which could reflect an abscess, this is a new finding compared with 04/23/2017. Assessment & Plan - Diagnosis (1) Abscess, prostate Is this a current diagnosis for this admission?: Yes Plan: Case reviewed with Hospitalist and Radiology. Pt is currently hemodynamically stable on antibiotics. He is not an acceptable candidate for general anesthesia/ TURP with urology but the abscess may be amenable to IR aspiration/drainage. Pt will need to be NPO, hemodynamically stable, blood cultures negative, off anticoagulants x 48 hrs with an INR < 1.4 prior to any invasive procedure. No family at the bedside today. Will need to discuss and obtain consent if deemed eligible by Radiology. Continue indwelling rios catheter for now given his history of recurrent retention/incomplete bladder emptying. - Time Time Spent: 30 to 50 Minutes - coordinating care, examining patient, discussing case with care providers.
[2017-10-01] MEDS: GENTAMICIN SULFATE 110 MG in DEXTROSE 5%-WATER 100 ML IV SCH (11:39)
--- NOTE | 2017-10-01 12:13 | PDOC PROGRESS REPORT ---
Subjective Progress Note for:: 10/01/17 Subjective:: No new issues overnight. Reason For Visit: SEPSIS, RESP FAILURE Physical Exam Vital Signs: Temp Pulse Resp BP Pulse Ox 98.6 F 77 18 137/69 H 97 10/01/17 07:51 10/01/17 08:25 10/01/17 08:25 10/01/17 07:51 10/01/17 08:25 Intake & Output 09/30/17 10/01/17 10/02/17 06:59 06:59 06:59 Intake Total 1877 2583 Output Total 365 450 Balance 1512 2133 Weight 87.2 kg General appearance: PRESENT: no acute distress, well-developed, well-nourished Head exam: PRESENT: atraumatic, normocephalic Eye exam: ABSENT: scleral icterus Ear exam: PRESENT: normal external ear exam Mouth exam: PRESENT: moist, tongue midline Neck exam: ABSENT: carotid bruit, JVD, lymphadenopathy, thyromegaly Respiratory exam: PRESENT: clear to auscultation yokasta. ABSENT: rales, rhonchi, wheezes Cardiovascular exam: PRESENT: RRR. ABSENT: diastolic murmur, rubs, systolic murmur Pulses: PRESENT: normal dorsalis pedis pul Vascular exam: PRESENT: normal capillary refill GI/Abdominal exam: PRESENT: normal bowel sounds, soft, other - G tube in place. ABSENT: distended, guarding, mass, organolmegaly, rebound, tenderness Rectal exam: PRESENT: deferred Extremities exam: PRESENT: other - upper ext contractures bilaterally Musculoskeletal exam: PRESENT: other - upper ext contractures bilaterally Neurological exam: PRESENT: other - sleeping Psychiatric exam: PRESENT: other - sleeping Skin exam: PRESENT: other - warm and dry Results Laboratory Results: 10/01/17 06:10 10/01/17 06:10 10/01/17 10/01/17 06:10 06:10 WBC 8.2 RBC 4.01 L Hgb 11.6 L Hct 35.4 L MCV 89 MCH 29.1 MCHC 32.9 RDW 17.1 H Plt Count 336 Seg Neutrophils % 71.8 Lymphocytes % 12.6 L Monocytes % 7.2 Eosinophils % 7.8 H Basophils % 0.6 Absolute Neutrophils 5.9 Absolute Lymphocytes 1.0 Absolute Monocytes 0.6 Absolute Eosinophils 0.6 Absolute Basophils 0.1 Sodium 142.7 Potassium 4.0 Chloride 102 Carbon Dioxide 31 H Anion Gap 10 BUN 18 Creatinine 0.91 Est GFR ( Amer) > 60 Est GFR (Non-Af Amer) > 60 Glucose 207 H Calcium 9.3 Magnesium 1.9 Total Bilirubin 0.3 AST 20 ALT 27 Alkaline Phosphatase 70 Total Protein 7.2 Albumin 3.5 09/26/17 09/26/17 09/26/17 23:35 23:35 23:35 Creatine Kinase 37 L CK-MB (CK-2) 0.83 Troponin I 0.013 NT-Pro-B Natriuret Pep 2220 H Impressions: Head CT 09/20/17 16:54 IMPRESSION: Stable CT appearance of the brain demonstrating left parieto- occipital encephalomalacia. Background of chronic microvascular and age- related involutional changes. No acute findings. EVIDENCE OF ACUTE STROKE: NO. KUB X-Ray 09/25/17 09:28 IMPRESSION: NO RADIOGRAPHIC EVIDENCE FOR ACUTE ABDOMINAL DISEASE. Chest X-Ray 09/27/17 06:00 IMPRESSION: Interval improvement in the aeration of the lungs with decrease in the bilateral perihilar airspace opacities. Pelvis CT 09/30/17 00:00 IMPRESSION: There is an ovoid to 3.6 cm rim enhancing region in the right prostate gland which could reflect an abscess, this is a new finding compared with 04/23/2017. Assessment & Plan - Diagnosis (1) Sepsis Qualifiers: Sepsis type: sepsis due to unspecified organism Qualified Code(s): A41.9 - Sepsis, unspecified organism Is this a current diagnosis for this admission?: Yes Plan: Secondary to Enterococcus faecalis: completed. (2) Respiratory failure Qualifiers: Chronicity: acute Respiratory failure complication: unspecified whether with hypoxia or hypercapnia Qualified Code(s): J96.00 - Acute respiratory failure, unspecified whether with hypoxia or hypercapnia Is this a current diagnosis for this admission?: Yes Plan: Acute respiratory failure secondary to sepsis status post extubation: Patient is doing well we will continue to monitor patient closely. (3) Aspiration pneumonia Qualifiers: Aspiration pneumonia type: unspecified Laterality: unspecified laterality Lung location: unspecified part of lung Qualified Code(s): J69.0 - Pneumonitis due to inhalation of food and vomit Is this a current diagnosis for this admission?: Yes Plan: Most likely gram-positive organism: completed care. (4) DM2 (diabetes mellitus, type 2) Qualifiers: Diabetes mellitus complication status: with unspecified complications Diabetes mellitus termite treater insulin use: with termite treater use Qualified Code(s) : E11.8 - Type 2 diabetes mellitus with unspecified complications; Z79.4 - correction (current) use of insulin; Z79.4 - termite technician (current) use of insulin; Z79.4 - correction (current) use of insulin; Z79.4 - correction (current) use of insulin Is this a current diagnosis for this admission?: Yes Plan: We will continue current insulin regimen. (5) Fluid overload Is this a current diagnosis for this admission?: Yes Plan: resolved. (6) Gram-positive cocci bacteremia Is this a current diagnosis for this admission?: Yes Plan: Secondary to Enterococcus faecalis: Completed treatment. (7) Hypernatremia Is this a current diagnosis for this admission?: Yes Plan: Secondary to dehydration: Resolved (8) Hypokalemia Is this a current diagnosis for this admission?: Yes Plan: resolved (9) Dehydration Is this a current diagnosis for this admission?: Yes Plan: We will continue free water. (10) Dementia Qualifiers: Dementia type: unspecified type Dementia behavioral disturbance: without behavioral disturbance Qualified Code(s): F03.90 - Unspecified dementia without behavioral disturbance Is this a current diagnosis for this admission?: Yes Plan: Supportive care. (11) Dysphagia Is this a current diagnosis for this admission?: Yes Plan: G-tube in place. Will continue tube feeds. (12) Hypercalcemia Is this a current diagnosis for this admission?: Yes Plan: Secondary to dehydration: Resolved with IV fluid administration. (13) Sacral decubitus ulcer, stage III Is this a current diagnosis for this admission?: Yes Plan: Continue current wound care regimen. (14) G tube feedings Is this a current diagnosis for this admission?: Yes Plan: Continue tube feeds. (15) Seizure disorder Is this a current diagnosis for this admission?: Yes Plan: We will continue patient's home medications. (16) HX of abscess Is this a current diagnosis for this admission?: Yes Plan: CT of right prostate gland with possible abscess. Urology following. (17) DVT prophylaxis Is this a current diagnosis for this admission?: Yes Plan: Heparin subcu - Time Time Spent with patient: 25-34 minutes
[2017-10-01 12:36] LABS: VANCOMYCIN,TROUGH 15.8 ug/mL (5.0-20.0)
[2017-10-01] MEDS: INSULIN REG, HUMAN 100 UNIT/ML 3 ML VIAL (PYX) SUBCUT PRN ×2 (13:04→17:43)
[2017-10-02] MEDS: IPRATROPIUM/ALBUTEROL 0.5-2.5 MG/3 ML AMPUL NEB SCH ×4 (01:47→19:47)
[2017-10-02 06:30] LABS: ABSOLUTE EOSINOPHILS # (AUTO) 0.6 10^3/uL (0.0-0.6); ABSOLUTE LYMPHOCYTES (AUTO) 0.9 10^3/uL (0.5-4.7); ABSOLUTE MONOCYTES (AUTO) 0.5 10^3/uL (0.1-1.4); ABSOLUTE NEUT (AUTO) 4.4 10^3/uL (1.7-8.2); BASOPHILS % (AUTO) 0.5 % (0-2); EOSINOPHILS % (AUTO) 9.6 % (0-6); HEMATOCRIT 34.9 % (37.9-51.0); HEMOGLOBIN 11.5 g/dL (13.5-17.0); LYMPHOCYTES % (AUTO) 14.1 % (13-45); MEAN CORPUSCULAR VOLUME 88 fl (80-97); MONOCYTES % (AUTO) 8.2 % (3-13); PLATELET COUNT 335 10^3/uL (150-450); RED BLOOD COUNT 3.97 10^6/uL (4.35-5.55); RED CELL DISTRIBUTION WIDTH 17.4 % (11.5-14.0); SEGMENTED NEUTROPHILS % (AUTO) 67.6 % (42-78); TOTAL CELLS COUNTED % (AUTO) 100 %; WHITE BLOOD COUNT 6.5 10^3/uL (4.0-10.5)
[2017-10-02 06:41] LABS: INTERNATIONAL RATION (INR) 1.01
[2017-10-02 06:42] LABS: PARTIAL THROMBOPLASTIN TIME 43.1 SEC (23.5-35.8)
[2017-10-02 06:43] LABS: ANION GAP 7 (5-19); BLOOD UREA NITROGEN 16 mg/dL (7-20); CALCIUM 9.6 mg/dL (8.4-10.2); CARBON DIOXIDE 33 mmol/L (22-30); CHLORIDE 105 mmol/L (98-107); GLUCOSE 162 mg/dL (75-110); POTASSIUM 4.1 mmol/L (3.6-5.0); SODIUM 144.6 mmol/L (137-145)
[2017-10-02] MEDS: ACETYLCYSTEINE 20% SOLN 800 MG/4 ML VIAL.NEB NEB SCH ×2 (08:27→19:47)
[2017-10-02] MEDS: LEVETIRACETAM 750 MG in NORMAL SALINE 100 ML IV SCH ×2 (10:28→21:31)
--- NOTE | 2017-10-02 13:20 | PDOC PROGRESS REPORT ---
Subjective Progress Note for:: 10/02/17 Subjective:: No new issues. Nursing states that daughter would not sign paperwork. Reason For Visit: SEPSIS, RESP FAILURE Physical Exam Vital Signs: Temp Pulse Resp BP Pulse Ox 97.8 F 81 24 H 138/72 H 97 10/02/17 11:13 10/02/17 11:13 10/02/17 11:13 10/02/17 11:13 10/02/17 11:13 Intake & Output 10/01/17 10/02/17 10/03/17 06:59 06:59 06:59 Intake Total 2583 280 Output Total 450 1900 300 Balance 2133 -1620 -300 Weight 87.2 kg 88.2 kg General appearance: PRESENT: other - sleeping Head exam: PRESENT: atraumatic, normocephalic Eye exam: PRESENT: conjunctiva pink Ear exam: PRESENT: normal external ear exam Mouth exam: PRESENT: moist, tongue midline Neck exam: ABSENT: carotid bruit, JVD, lymphadenopathy, thyromegaly Respiratory exam: PRESENT: clear to auscultation yokasta. ABSENT: rales, rhonchi, wheezes Cardiovascular exam: PRESENT: RRR. ABSENT: diastolic murmur, rubs, systolic murmur Pulses: PRESENT: normal dorsalis pedis pul Vascular exam: PRESENT: normal capillary refill GI/Abdominal exam: PRESENT: normal bowel sounds, soft, other - feeding tube.. ABSENT: distended, guarding, mass, organolmegaly, rebound, tenderness Rectal exam: PRESENT: deferred Extremities exam: PRESENT: full ROM. ABSENT: calf tenderness, clubbing, pedal edema Psychiatric exam: PRESENT: appropriate affect, normal mood. ABSENT: homicidal ideation, suicidal ideation Skin exam: PRESENT: dry, intact, warm. ABSENT: cyanosis, rash Results Laboratory Results: 10/02/17 06:05 10/02/17 06:05 10/01/17 10/02/17 10/02/17 10:40 06:05 06:05 WBC 6.5 RBC 3.97 L Hgb 11.5 L Hct 34.9 L MCV 88 MCH 29.0 MCHC 33.0 RDW 17.4 H Plt Count 335 Seg Neutrophils % 67.6 Lymphocytes % 14.1 Monocytes % 8.2 Eosinophils % 9.6 H Basophils % 0.5 Absolute Neutrophils 4.4 Absolute Lymphocytes 0.9 Absolute Monocytes 0.5 Absolute Eosinophils 0.6 Absolute Basophils 0.0 Sodium 144.6 Potassium 4.1 Chloride 105 Carbon Dioxide 33 H Anion Gap 7 BUN 16 Creatinine 0.89 0.93 Est GFR ( Amer) > 60 > 60 Est GFR (Non-Af Amer) > 60 > 60 Glucose 162 H Calcium 9.6 Magnesium 2.0 09/26/17 09/26/17 09/26/17 23:35 23:35 23:35 Creatine Kinase 37 L CK-MB (CK-2) 0.83 Troponin I 0.013 NT-Pro-B Natriuret Pep 2220 H Impressions: Head CT 09/20/17 16:54 IMPRESSION: Stable CT appearance of the brain demonstrating left parieto- occipital encephalomalacia. Background of chronic microvascular and age- related involutional changes. No acute findings. EVIDENCE OF ACUTE STROKE: NO. KUB X-Ray 09/25/17 09:28 IMPRESSION: NO RADIOGRAPHIC EVIDENCE FOR ACUTE ABDOMINAL DISEASE. Chest X-Ray 09/27/17 06:00 IMPRESSION: Interval improvement in the aeration of the lungs with decrease in the bilateral perihilar airspace opacities. Pelvis CT 09/30/17 00:00 IMPRESSION: There is an ovoid to 3.6 cm rim enhancing region in the right prostate gland which could reflect an abscess, this is a new finding compared with 04/23/2017. Assessment & Plan - Diagnosis (1) Sepsis Qualifiers: Sepsis type: sepsis due to unspecified organism Qualified Code(s): A41.9 - Sepsis, unspecified organism Is this a current diagnosis for this admission?: Yes Plan: Secondary to Enterococcus faecalis: completed. (2) Respiratory failure Qualifiers: Chronicity: acute Respiratory failure complication: unspecified whether with hypoxia or hypercapnia Qualified Code(s): J96.00 - Acute respiratory failure, unspecified whether with hypoxia or hypercapnia Is this a current diagnosis for this admission?: Yes Plan: Acute respiratory failure secondary to sepsis status post extubation: Patient is doing well we will continue to monitor patient closely. (3) Aspiration pneumonia Qualifiers: Aspiration pneumonia type: unspecified Laterality: unspecified laterality Lung location: unspecified part of lung Qualified Code(s): J69.0 - Pneumonitis due to inhalation of food and vomit Is this a current diagnosis for this admission?: Yes Plan: Most likely gram-positive organism: completed care. (4) DM2 (diabetes mellitus, type 2) Qualifiers: Diabetes mellitus complication status: with unspecified complications Diabetes mellitus fpc insulin use: with fpc use Qualified Code(s) : E11.8 - Type 2 diabetes mellitus with unspecified complications; Z79.4 - MCFP (current) use of insulin; Z79.4 - rat 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 (current) use of insulin; Z79.4 - rat 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 (current) use of insulin; Z79.4 - rat 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 (current) use of insulin Is this a current diagnosis for this admission?: Yes Plan: We will continue current insulin regimen. (5) Fluid overload Is this a current diagnosis for this admission?: Yes Plan: resolved. (6) Gram-positive cocci bacteremia Is this a current diagnosis for this admission?: Yes Plan: Secondary to Enterococcus faecalis: Completed treatment. (7) Hypernatremia Is this a current diagnosis for this admission?: Yes Plan: Secondary to dehydration: Resolved (8) Hypokalemia Is this a current diagnosis for this admission?: Yes Plan: resolved (9) Dehydration Is this a current diagnosis for this admission?: Yes Plan: We will continue free water. (10) Dementia Qualifiers: Dementia type: unspecified type Dementia behavioral disturbance: without behavioral disturbance Qualified Code(s): F03.90 - Unspecified dementia without behavioral disturbance Is this a current diagnosis for this admission?: Yes Plan: Supportive care. (11) Dysphagia Is this a current diagnosis for this admission?: Yes Plan: G-tube in place. Will continue tube feeds. (12) Hypercalcemia Is this a current diagnosis for this admission?: Yes Plan: Secondary to dehydration: Resolved with IV fluid administration. (13) Sacral decubitus ulcer, stage III Is this a current diagnosis for this admission?: Yes Plan: Continue current wound care regimen. (14) G tube feedings Is this a current diagnosis for this admission?: Yes Plan: Continue tube feeds. (15) Seizure disorder Is this a current diagnosis for this admission?: Yes Plan: We will continue patient's home medications. (16) HX of abscess Is this a current diagnosis for this admission?: Yes Plan: CT of right prostate gland with possible abscess. Daughter is wanting additional information. (17) DVT prophylaxis Is this a current diagnosis for this admission?: Yes Plan: Heparin subcu - Time Time Spent with patient: 15-24 minutes
--- NOTE | 2017-10-02 14:29 | PDOC PROGRESS REPORT ---
Subjective Progress Note for:: 10/02/17 Subjective:: More alert per daughter. Reason For Visit: SEPSIS, RESP FAILURE Physical Exam Vital Signs: Temp Pulse Resp BP Pulse Ox 97.8 F 81 24 H 138/72 H 97 10/02/17 11:13 10/02/17 11:13 10/02/17 11:13 10/02/17 11:13 10/02/17 11:13 Intake & Output 10/01/17 10/02/17 10/03/17 06:59 06:59 06:59 Intake Total 2583 280 Output Total 450 1900 300 Balance 2133 -1620 -300 Weight 87.2 kg 88.2 kg General appearance: PRESENT: no acute distress Head exam: PRESENT: atraumatic Eye exam: PRESENT: conjunctiva pale Mouth exam: PRESENT: moist Respiratory exam: PRESENT: unlabored Cardiovascular exam: PRESENT: RRR GI/Abdominal exam: PRESENT: soft Rectal exam: PRESENT: deferred Gentrourinary exam: PRESENT: indwelling catheter - urine clear, no paraphimosis Musculoskeletal exam: PRESENT: other - somewhat contracted Neurological exam: PRESENT: altered - responds to stimuli Psychiatric exam: PRESENT: flat affect Skin exam: PRESENT: warm Results Laboratory Results: 10/02/17 06:05 10/02/17 06:05 10/02/17 10/02/17 06:05 06:05 WBC 6.5 RBC 3.97 L Hgb 11.5 L Hct 34.9 L MCV 88 MCH 29.0 MCHC 33.0 RDW 17.4 H Plt Count 335 Seg Neutrophils % 67.6 Lymphocytes % 14.1 Monocytes % 8.2 Eosinophils % 9.6 H Basophils % 0.5 Absolute Neutrophils 4.4 Absolute Lymphocytes 0.9 Absolute Monocytes 0.5 Absolute Eosinophils 0.6 Absolute Basophils 0.0 Sodium 144.6 Potassium 4.1 Chloride 105 Carbon Dioxide 33 H Anion Gap 7 BUN 16 Creatinine 0.93 Est GFR ( Amer) > 60 Est GFR (Non-Af Amer) > 60 Glucose 162 H Calcium 9.6 Magnesium 2.0 09/26/17 09/26/17 09/26/17 23:35 23:35 23:35 Creatine Kinase 37 L CK-MB (CK-2) 0.83 Troponin I 0.013 NT-Pro-B Natriuret Pep 2220 H Impressions: Head CT 09/20/17 16:54 IMPRESSION: Stable CT appearance of the brain demonstrating left parieto- occipital encephalomalacia. Background of chronic microvascular and age- related involutional changes. No acute findings. EVIDENCE OF ACUTE STROKE: NO. KUB X-Ray 09/25/17 09:28 IMPRESSION: NO RADIOGRAPHIC EVIDENCE FOR ACUTE ABDOMINAL DISEASE. Chest X-Ray 09/27/17 06:00 IMPRESSION: Interval improvement in the aeration of the lungs with decrease in the bilateral perihilar airspace opacities. Pelvis CT 09/30/17 00:00 IMPRESSION: There is an ovoid to 3.6 cm rim enhancing region in the right prostate gland which could reflect an abscess, this is a new finding compared with 04/23/2017. Status: Image reviewed by me - 3 cm prostatic abscess, indwelling rios Assessment & Plan - Diagnosis (1) Abscess, prostate Is this a current diagnosis for this admission?: Yes Plan: I spoke with the patient's daughter today regarding Mr. Correia. Tanya Palaciosison , . 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 The current abscess measures ~ 3 cm, predominately within the right lobe of the prostate. We discussed options including observation with antibiotic therapy, aspiration/ drainage of the abscess with IR or surgical intervention with TURP to unroof the abscess. The patient is high risk for general anesthesia and does not want any major procedure. Given his improvement with conservative therapy, the daughter expressed interested in continuing with antibiotic therapy and re- evaluation in the future. We discussed his need for indwelling catheter. At this point there is no one available to perform CIC and the patient lacks the dexterity to catheterize himself. Recommendation/Plan: Continue conservative therapy. Recommend jail antibiotic therapy for prostatic abscess. Pt should follow up with [facility] following discharge. - Time Time Spent with patient: Less than 15 minutes Anticipated discharge: SNF Within: within 48 hours - Inpatient Certification Based on my medical assessment, after consideration of the patient's comorbidities, presenting symptoms, or acuity I expect that the services needed warrant INPATIENT care.: Yes I certify that my determination is in accordance with my understanding of Medicare's requirements for reasonable and necessary INPATIENT services [42 CFR 412.3e].: Yes Medical Necessity: Failure to Improve With Outpatient Therapy, Need for IV Antibiotics
[2017-10-03] MEDS: IPRATROPIUM/ALBUTEROL 0.5-2.5 MG/3 ML AMPUL NEB SCH ×3 (01:26→13:56)
[2017-10-03] MEDS: INSULIN REG, HUMAN 100 UNIT/ML 3 ML VIAL (PYX) SUBCUT PRN (07:26)
[2017-10-03] MEDS: ACETYLCYSTEINE 20% SOLN 800 MG/4 ML VIAL.NEB NEB SCH (08:24)
[2017-10-03] MEDS: LEVETIRACETAM 750 MG in NORMAL SALINE 100 ML IV SCH (10:22)
--- NOTE | 2017-10-03 14:06 | PDOC DISCHARGE SUMMARY ---
General - Admit/Disc Date/PCP Admission Date/Primary Care Provider: 09/20/17 19:48 MARGARITA ZARATE MD Discharge Date: 10/03/17 - Discharge Diagnosis (1) Sepsis Is this a current diagnosis for this admission?: Yes Summary: Regular to Enterococcus faecalis and prostate abscess: Patient has completed antibiotic treatment. Patient's white count is normal and has been afebrile. Urology had recommended that patient have a aspiration of state abscess due to its small size. Daughter finally decided that she did not want anything done at this time and will determine what she needs to do as outpatient. Not want to continue patient on antibiotics at this time due to patient being afebrile white count normal and due to concern for antibiotic related infection i.e. C. difficile or multidrug-resistant organism. (2) Respiratory failure Is this a current diagnosis for this admission?: Yes Summary: Resolved. (3) Aspiration pneumonia Is this a current diagnosis for this admission?: Yes Summary: Treated (4) DM2 (diabetes mellitus, type 2) Is this a current diagnosis for this admission?: Yes Summary: Continue with patient's outpatient regimen. (5) Fluid overload Is this a current diagnosis for this admission?: Yes Summary: resolved (6) Gram-positive cocci bacteremia Is this a current diagnosis for this admission?: Yes Summary: Secondary to enterococcus: Completed treatment (7) Hypernatremia Is this a current diagnosis for this admission?: Yes Summary: Secondary dehydration which has resolved. (8) Hypokalemia Is this a current diagnosis for this admission?: Yes Summary: Resolved. (9) Dehydration Is this a current diagnosis for this admission?: Yes Summary: Secondary to Sepsis: resolved (10) Dementia Is this a current diagnosis for this admission?: Yes Summary: Supportive Care (11) Dysphagia Is this a current diagnosis for this admission?: Yes Summary: Continue Tube feeds (12) Hypercalcemia Is this a current diagnosis for this admission?: Yes Summary: Secondary to immobility: Resolved (13) Sacral decubitus ulcer, stage III Is this a current diagnosis for this admission?: Yes Summary: Resolved (14) G tube feedings Is this a current diagnosis for this admission?: Yes Summary: G-tube feeds. (15) Seizure disorder Is this a current diagnosis for this admission?: Yes Summary: Continue antiseizure medication (16) HX of abscess Is this a current diagnosis for this admission?: Yes Summary: Pt found to have small prostate abscess daughter declined aspiration of abscess - Additional Information Resuscitation Status: Full Code Discharge Diet: Tube Feeding (Comments) - Glucerna 1.2 @ 65ml/h and with free water flushes 325 cc every 4 hours Discharge Activity: Bedrest Home Medications: Cranberry Fruit Extract [Cranberry 500 mg Capsule] 500 mg PO DAILY 09/21/17 Famotidine [Pepcid 20 mg Tablet] 20 mg PO BID 09/21/17 Guaifenesin [Siltussin SA] 15 ml PO Q6 09/21/17 Insulin Lispro [Humalog Insulin (Lispro) 100 unit/mL] 0 units SQ .SLIDING SCALE 09/21/17 Isosorbide Dinitrate [Isordil Titradose 20 mg Tablet] 20 mg PO Q8 09/21/17 Levetiracetam [Keppra] 750 mg PO Q12 09/21/17 Metoprolol Tartrate [Lopressor 25 mg Tablet] 25 mg PO Q12 09/21/17 Multivitamin/Iron/Folic Acid [Centrum Adults Tablet] 1 tab PO DAILY 09/21/17 History of Present Illness Patient complains of: Difficulty breathing History of Present Illness: THAD JOY is a 76 year old male admitted to hospital with complaint of difficulty breathing. From facility there was report that patient may have vomited. Hospital Course Hospital Course: Patient is a 76-year-old gentleman that was admitted to our facility for presumed aspiration pneumonia. Patient was placed on broad-spectrum antibiotics. Patient was found to have Enterococcus faecalis and blood cultures. Patient had CT of pelvis which demonstrated small prostate abscess. Patient was placed on appropriate antibiotics for these infections and completed treatment here at hospital. Patient's daughter Tavia Shafer declined aspirated of possible prostate abscess. Patient's daughter stated that she will think about it and it can possibly be done as outpatient. Patient was noted to be hypernatremic and free water boluses were adjusted. Patient has done well throughout hospitalization and ready for discharge to facility. Patient was not continued on antibiotics due to patient currently been afebrile. Patient has received long duration of antibiotic treatment. Concerned that patient is at high risk for multidrug organisms due to frequency of antibiotic administration. Nursing facility has been instructed to keep patient at 45 angle at all times. Physical Exam Vital Signs: Temp Pulse Resp BP Pulse Ox 98.9 F 72 16 152/78 H 96 10/03/17 07:28 10/03/17 08:24 10/03/17 08:24 10/03/17 07:28 10/03/17 08:24 Intake & Output 10/02/17 10/03/17 10/04/17 06:59 06:59 06:59 Intake Total 280 1256 700 Output Total 1900 1250 Balance -1620 6 700 Weight 88.2 kg 87.2 kg General appearance: PRESENT: well-developed, well-nourished Head exam: PRESENT: normocephalic Eye exam: PRESENT: conjunctiva pink Ear exam: PRESENT: normal external ear exam Mouth exam: PRESENT: moist, tongue midline Neck exam: ABSENT: carotid bruit, JVD, lymphadenopathy, thyromegaly Respiratory exam: PRESENT: clear to auscultation yokasta. ABSENT: rales, rhonchi, wheezes Cardiovascular exam: PRESENT: RRR. ABSENT: diastolic murmur, rubs, systolic murmur Pulses: PRESENT: normal dorsalis pedis pul Vascular exam: PRESENT: normal capillary refill GI/Abdominal exam: PRESENT: other - G-tube in place Rectal exam: PRESENT: deferred Extremities exam: PRESENT: other - Extremity contractures bilaterally Musculoskeletal exam: PRESENT: other - Upper extremity contractures bilaterally Neurological exam: PRESENT: other - Eyes closed resting Psychiatric exam: PRESENT: other - Eyes closed resting Skin exam: PRESENT: dry, rash, warm Results Laboratory Results: 10/02/17 06:05 10/02/17 06:05 09/26/17 09/26/17 09/26/17 23:35 23:35 23:35 Creatine Kinase 37 L CK-MB (CK-2) 0.83 Troponin I 0.013 NT-Pro-B Natriuret Pep 2220 H Impressions: Head CT 09/20/17 16:54 IMPRESSION: Stable CT appearance of the brain demonstrating left parieto- occipital encephalomalacia. Background of chronic microvascular and age- related involutional changes. No acute findings. EVIDENCE OF ACUTE STROKE: NO. KUB X-Ray 09/25/17 09:28 IMPRESSION: NO RADIOGRAPHIC EVIDENCE FOR ACUTE ABDOMINAL DISEASE. Chest X-Ray 09/27/17 06:00 IMPRESSION: Interval improvement in the aeration of the lungs with decrease in the bilateral perihilar airspace opacities. Pelvis CT 09/30/17 00:00 IMPRESSION: There is an ovoid to 3.6 cm rim enhancing region in the right prostate gland which could reflect an abscess, this is a new finding compared with 04/23/2017. Plan Time Spent: Greater than 30 Minutes
[2017-10-03 15:10] VITALS: BP 145/67
== END 2017-10-03 18:44 | DRG 870 ==
LOC: ER 16:37 → EH 19:48 → ICU 22:32 → 3W 09-30 03:32
PROVIDERS: ADMIT Internal Medicine; ATTEND Internal Medicine
PROC: 5A1955Z Respiratory Ventilation, Greater than 96 Consecutive Hours (ICD-10-PCS; principal; 2017-09-20)
PROC: 0BH17EZ Insertion of Endotracheal Airway into Trachea, Via Natural or Artificial Opening (ICD-10-PCS; 2017-09-20)
PROC: 02HV33Z Insertion of Infusion Device into Superior Vena Cava, Percutaneous Approach (ICD-10-PCS; 2017-09-20)
PROC: 3E0F73Z Introduction of Anti-inflammatory into Respiratory Tract, Via Natural or Artificial Opening (ICD-10-PCS; 2017-09-24)
DX: A41.81 Sepsis due to Enterococcus (principal); J69.0 Pneumonitis due to inhalation of food and vomit; L89.153 Pressure ulcer of sacral region, stage 3; R65.21 Severe sepsis with septic shock; E43 Unspecified severe protein-calorie malnutrition; J96.00 Acute respiratory failure, unspecified whether with hypoxia or hypercapnia; N41.2 Abscess of prostate; E87.0 Hyperosmolality and hypernatremia; T83.511A Infection and inflammatory reaction due to indwelling urethral catheter, initial encounter; E11.9 Type 2 diabetes mellitus without complications; Z78.1 Physical restraint status; E86.0 Dehydration; E87.6 Hypokalemia; F03.90 Unspecified dementia, unspecified severity, without behavioral disturbance, psychotic disturbance, mood disturbance, and anxiety; R13.10 Dysphagia, unspecified; E83.52 Hypercalcemia; G40.909 Epilepsy, unspecified, not intractable, without status epilepticus; I10 Essential (primary) hypertension; J44.9 Chronic obstructive pulmonary disease, unspecified; K21.9 Gastro-esophageal reflux disease without esophagitis; F32.9 Major depressive disorder, single episode, unspecified; D64.9 Anemia, unspecified; G93.89 Other specified disorders of brain; E78.00 Pure hypercholesterolemia, unspecified; D63.8 Anemia in other chronic diseases classified elsewhere; B96.5 Pseudomonas (aeruginosa) (mallei) (pseudomallei) as the cause of diseases classified elsewhere; N40.1 Benign prostatic hyperplasia with lower urinary tract symptoms; R33.8 Other retention of urine; E03.9 Hypothyroidism, unspecified; Z68.29 Body mass index [BMI] 29.0-29.9, adult; I25.2 Old myocardial infarction; Z93.1 Gastrostomy status; Z79.4 Long term (current) use of insulin; Z79.899 Other long term (current) drug therapy; Z86.73 Personal history of transient ischemic attack (TIA), and cerebral infarction without residual deficits; Z87.891 Personal history of nicotine dependence; Z88.6 Allergy status to analgesic agent; Z88.8 Allergy status to other drugs, medicaments and biological substances
CPT/HCPCS: 36415; 70450; 71045; 72193; 74018; 80048; 80053; 80170; 80177; 80202; 81001; 82550; 82553; 82565; 82803; 82962; 83036; 83605; 83735; 83880; 84100; 84132; 84478; 84484; 85025; 85610; 85730; 87040; 87070; 87077; 87086; 87088; 87186; 87205; 87493; 93005; 93010; 94002; 94003; 96361; 96365; 96367; 96375; 99291; 99292; C1751; J0330; J1580; J1650; J1815; J1940; J1953; J2060; J2543; J2704; J3370; J3480; J3490; J7030; J7060; J7120; J7620; P9047; S0164

== ENCOUNTER 2017-11-19 18:26 | Emergency (ER) | payer MEDICARE, OTHER ==
[2017-11-19] MEDS ORDERED: LIDOCAINE 2% URO-JET 5 ML KIT MM ONE (19:46)
--- NOTE | 2017-11-19 19:48 | ER Document Report ---
ED GI/ - General Chief Complaint: Urinary Problem Stated Complaint: POOR URINE OUTPUT Time Seen by Provider: 11/19/17 19:16 Notes: Patient is a 76-year-old male comes emergency department for chief complaint of problems with his Vazquez catheter. Daughter at bedside states that they have noticed that his back is not filling and he appears to be leaking around the Vazquez. At the group home daughter states they attempted to troubleshoot and change the balloon filling but it continued to leak. Patient has not had any pain as far as they can tell. Patient is nonverbal, contracted, has both a G- tube and Vazquez in place. No fever, no vomiting, no other abnormalities reported. Patient has an history of BPH. TRAVEL OUTSIDE OF THE [place] IN LAST 30 DAYS: No - Related Data Allergies/Adverse Reactions: divalproex sodium [From Depakote] Allergy (Verified 01/17/17 17:13) oxycodone [Oxycodone] Adverse Reaction (Intermediate, Verified 01/12/17 19:24) agitation simvastatin [From Zocor] Adverse Reaction (Unknown, Verified 01/12/17 19:24) dysarthria Past Medical History - General Information source: Patient - Social History Smoking Status: Never Smoker Chew tobacco use (# tins/day): No Frequency of alcohol use: None Drug Abuse: None Lives with: Family Family History: None, Other Patient has suicidal ideation: No Patient has homicidal ideation: No - Past Medical History Cardiac Medical History: Reports: Hx Heart Attack, Hx Hypercholesterolemia, Hx Hypertension Pulmonary Medical History: Reports: Hx COPD, Hx Pneumonia Neurological Medical History: Reports: Hx Cerebrovascular Accident - CVA in 2013 , History of subarachnoid hemorrhage in 2016, Hx Seizures Endocrine Medical History: Reports: Hx Diabetes Mellitus Type 1, Hx Diabetes Mellitus Type 2. Denies: Hx Hyperthyroidism, Hx Hypothyroidism Renal/ Medical History: Reports: Hx Benign Prostatic Hyperplasia. Denies: Hx Peritoneal Dialysis GI Medical History: Reports: Hx Gastroesophageal Reflux Disease - PEG tube post CVA. Denies: Hx Cirrhosis, Hx Hepatitis Musculoskeltal Medical History: Reports Hx Muscle Weakness Psychiatric Medical History: Reports: Hx Dementia, Hx Depression Infectious Medical History: Denies: Hx Hepatitis Past Surgical History: Reports: Hx Abdominal Surgery - Feeding gastrostomy tube , Hx Orthopedic Surgery - Right knee surgery. Titanium jelani, left femur after accident., Other - PEG tube placed - Immunizations Hx Diphtheria, Pertussis, Tetanus Vaccination: Yes Hx Pneumococcal Vaccination: 05/25/14 Review of Systems - Review of Systems Constitutional: No symptoms reported EENT: No symptoms reported Cardiovascular: No symptoms reported Respiratory: No symptoms reported Gastrointestinal: See HPI Genitourinary: See HPI Male Genitourinary: No symptoms reported Musculoskeletal: No symptoms reported Skin: No symptoms reported Hematologic/Lymphatic: No symptoms reported Neurological/Psychological: No symptoms reported Physical Exam - Vital signs Vitals: Temp Pulse Resp BP Pulse Ox 99.8 F 83 20 150/68 H 96 11/19/17 18:35 11/19/17 18:35 11/19/17 18:35 11/19/17 18:35 11/19/17 18:35 Interpretation: Normal - General General appearance: Appears well In distress: None - Patient is nonverbal but he appears comfortable, no signs of distress, no grimacing - HEENT Head: Normocephalic, Atraumatic Eyes: Normal Pupils: PERRL - Respiratory Respiratory status: No respiratory distress Chest status: Nontender Breath sounds: Normal Chest palpation: Normal - Cardiovascular Rhythm: Regular Heart sounds: Normal auscultation Murmur: No - Abdominal Inspection: Normal Distension: No distension Bowel sounds: Normal Tenderness: Nontender Organomegaly: No organomegaly - Genitourinary Inspection: Other - There is some urine dripping from beside the Vazquez, no abnormality of the genitals or inguinal area otherwise, empty Vazquez catheter bag - Back Back: Normal, Nontender - Extremities General upper extremity: Normal inspection, Nontender, Normal color, Normal ROM , Normal temperature General lower extremity: Normal inspection, Nontender, Normal color, Normal ROM , Normal temperature, Normal weight bearing. No: Rob's sign - Neurological Neuro grossly intact: Yes Cognition: Normal Orientation: AAOx4 Dada Coma Scale Eye Opening: Spontaneous [place] Coma Scale Verbal: Oriented Dada Coma Scale Motor: Obeys Commands Dada Coma Scale Total: 15 Speech: Normal Motor strength normal: LUE, RUE, LLE, RLE Sensory: Normal - Psychological Associated symptoms: Normal affect, Normal mood - Skin Skin Temperature: Warm Skin Moisture: Dry Skin Color: Normal Course - Re-evaluation Re-evalutation: Vazquez was replaced with brand-new one, balloon was made sure to be inflated fully, patient tolerated this without any difficulty, new Vazquez did not have any leaking. This was rechecked twice. No other concerns or complaints. Unremarkable vital signs. Discharged with return precautions. Daughter states understanding and agreement. - Vital Signs Vital signs: Temp Pulse Resp BP Pulse Ox 99.8 F 88 16 150/67 H 97 11/19/17 18:35 11/20/17 00:22 11/20/17 00:22 11/20/17 00:22 11/20/17 00:22 - Laboratory Laboratory results interpreted by me: 11/19/17 21:18 POC Glucose 160 H Discharge - Discharge Clinical Impression: Vazquez catheter problem Qualifiers: Encounter type: initial encounter Qualified Code(s): T83.9XXA - Unspecified complication of genitourinary prosthetic device, implant and graft, initial encounter Condition: Stable Disposition: HOME, SELF-CARE Additional Instructions: A new Vazquez has been placed because of the difficulties with leakage from the other one. Follow-up with his urologist routinely. Return for any concerning symptoms including pain, fever, or any other concerning or worsening symptoms. Referrals: KATIE KOROMA DO [Primary Care Provider] - Follow up as needed
[2017-11-20 00:23] VITALS: BP 150/67
== END 2017-11-20 00:22 | disposition home or self-care (01) ==
LOC: ER 18:26
DX: T83.038A Leakage of other urinary catheter, initial encounter (principal); I25.2 Old myocardial infarction; I10 Essential (primary) hypertension; J44.9 Chronic obstructive pulmonary disease, unspecified; E11.9 Type 2 diabetes mellitus without complications
CPT/HCPCS: 99284; 51702; 82962; A9270; J3490

== ENCOUNTER 2017-12-01 13:18 | Inpatient (IN) | payer MEDICARE, OTHER ==
--- NOTE | 2017-12-01 14:28 | ER Document Report ---
ED GI/ - General Chief Complaint: Urinary Problem Stated Complaint: URINARY PROBLEMS Time Seen by Provider: 12/01/17 13:29 Mode of Arrival: Medic Information source: Relative TRAVEL OUTSIDE OF THE [place] IN LAST 30 DAYS: No - HPI Patient complains to provider of: Abdominal pain, Dysuria, Vazquez catheter problem Onset: Last week Timing/Duration: Gradual, Persistent Quality of pain: Achy Notes: 12/01/17 14:27 Patient is a 76-year-old male who was brought to the emergency room from local [facility] for complaints of Vazquez catheter leakage and draining around the catheter, patient is nonverbal secondary to history of CVA, was seen in emergency department on 11/19/2017 and had Vazquez catheter changed due to these problems, continues to have leakage around the Vazquez catheter, daughter at bedside reports that he also has redness and irritation of his inner thighs and flanks, she is also concerned about possible aspiration pneumonia as she found him lying flat - Related Data Allergies/Adverse Reactions: divalproex sodium [From Depakote] Allergy (Verified 01/17/17 17:13) oxycodone [Oxycodone] Adverse Reaction (Intermediate, Verified 01/12/17 19:24) agitation simvastatin [From Zocor] Adverse Reaction (Unknown, Verified 01/12/17 19:24) dysarthria Past Medical History - General Information source: Relative - Social History Smoking Status: Never Smoker Chew tobacco use (# tins/day): No Frequency of alcohol use: None Drug Abuse: None Family History: None, Other Patient has suicidal ideation: No Patient has homicidal ideation: No - Past Medical History Cardiac Medical History: Reports: Hx Heart Attack, Hx Hypercholesterolemia, Hx Hypertension Pulmonary Medical History: Reports: Hx COPD, Hx Pneumonia Neurological Medical History: Reports: Hx Cerebrovascular Accident - CVA in 2014 , History of subarachnoid hemorrhage in 2016, Hx Seizures Endocrine Medical History: Reports: Hx Diabetes Mellitus Type 1, Hx Diabetes Mellitus Type 2. Denies: Hx Hyperthyroidism, Hx Hypothyroidism Renal/ Medical History: Reports: Hx Benign Prostatic Hyperplasia. Denies: Hx Peritoneal Dialysis GI Medical History: Reports: Hx Gastroesophageal Reflux Disease - PEG tube post CVA. Denies: Hx Cirrhosis, Hx Hepatitis Musculoskeltal Medical History: Reports Hx Muscle Weakness Psychiatric Medical History: Reports: Hx Dementia, Hx Depression Infectious Medical History: Denies: Hx Hepatitis Past Surgical History: Reports: Hx Abdominal Surgery - Feeding gastrostomy tube , Hx Orthopedic Surgery - Right knee surgery. Titanium jelani, left femur after accident., Other - PEG tube placed - Immunizations Hx Diphtheria, Pertussis, Tetanus Vaccination: Yes Hx Pneumococcal Vaccination: 05/25/14 Review of Systems - Review of Systems Constitutional: No symptoms reported EENT: No symptoms reported Cardiovascular: No symptoms reported Respiratory: Cough Gastrointestinal: Abdomen distended Genitourinary: See HPI Male Genitourinary: No symptoms reported Musculoskeletal: No symptoms reported Skin: No symptoms reported Hematologic/Lymphatic: No symptoms reported Neurological/Psychological: No symptoms reported -: Yes All other systems reviewed and negative Physical Exam - Vital signs Vitals: Temp Pulse Resp BP Pulse Ox 99.3 F 82 18 117/57 L 94 12/01/17 14:04 12/01/17 14:04 12/01/17 14:04 12/01/17 14:04 12/01/17 14:04 Interpretation: Normal - General General appearance: Alert In distress: None - HEENT Head: Normocephalic, Atraumatic Mucous membranes: Dry Pharynx: Normal Neck: Normal - Respiratory Respiratory status: No respiratory distress Chest status: Nontender Breath sounds: Normal Chest palpation: Normal - Cardiovascular Rhythm: Regular Heart sounds: Normal auscultation Murmur: No - Abdominal Inspection: Normal Distension: Distended - Soft, nontender Bowel sounds: Normal Tenderness: Nontender Organomegaly: No organomegaly - Genitourinary Inspection: Normal - Vazquez catheter in place - Extremities General upper extremity: Normal inspection - Chronic contraction General lower extremity: Normal inspection - Neurological Cognition: Inattentive Notes: Nonverbal at baseline - Skin Skin Temperature: Warm Skin Moisture: Dry Skin irregularity: Erythema - Mild erythema on bilateral flanks as well as inner thighs Course - Re-evaluation Re-evalutation: 12/01/17 18:28 Patient is a 76-year-old male presenting from long term for urinary issues with urine draining around the Vazquez catheter causing some skin irritation, labs are consistent with leukocytosis and evidence of a urinary tract infection , started on antibiotics, slightly elevated temperature noted, otherwise stable vital signs, previous urine cultures showed susceptibility to Cipro, therefore IV Cipro was provided, patient is nonverbal and nonambulatory secondary to CVA, patient was discussed with hospitalist, Dr. Persaud, who accepts to hospitalist service, will pass on to boxer operator physician who will complete the admission, patient stable at time of transfer of care - Vital Signs Vital signs: Temp Pulse Resp BP Pulse Ox 99.3 F 82 18 117/57 L 94 12/01/17 14:04 12/01/17 14:04 12/01/17 14:04 12/01/17 14:04 12/01/17 14:04 - Laboratory Result Diagrams: 12/01/17 14:35 12/01/17 17:15 Laboratory results interpreted by me: 12/01/17 12/01/17 12/01/17 13:55 14:35 17:15 WBC 15.9 H Hgb 13.0 L RDW 16.6 H Seg Neutrophils % 84.7 H Lymphocytes % 5.9 L Absolute Neutrophils 13.4 H Absolute Eosinophils 0.7 H Sodium 145.9 H Potassium 3.5 L Carbon Dioxide 35 H BUN 40 H Glucose 231 H AST 13 L ALT 16 L Urine Protein >=500 H Urine Bilirubin SMALL H Ur Leukocyte Esterase LARGE H - Diagnostic Test Radiology reviewed: Image reviewed, Reports reviewed - EKG Interpretation by Me EKG shows normal: Sinus rhythm Rate: Normal Rhythm: NSR Discharge - Discharge Clinical Impression: SIRS (systemic inflammatory response syndrome) UTI (urinary tract infection) due to urinary indwelling Vazquez catheter Qualifiers: Indwelling urinary catheter type: indwelling urethral catheter Encounter type: sequela Qualified Code(s): T83.511S - Infection and inflammatory reaction due to indwelling urethral catheter, sequela; N39.0 - Urinary tract infection, site not specified; N39.0 - Urinary tract infection, site not specified UTI (urinary tract infection) Qualifiers: Urinary tract infection type: site unspecified Hematuria presence: without hematuria Qualified Code(s): N39.0 - Urinary tract infection, site not specified Condition: Fair Disposition: ADMITTED INPATIENT Admitting Provider: Hospitalist Unit Admitted: Medical Floor Referrals: KATIE KOROMA DO [Primary Care Provider] - Follow up as needed
--- NOTE | 2017-12-01 14:40 | RADIOLOGY REPORT (SQ) ---
EXAM DESCRIPTION: CHEST SINGLE VIEW COMPLETED DATE/TIME: 12/01/2017 2:14 pm REASON FOR STUDY: cough COMPARISON: 09/27/2017 EXAM PARAMETERS: NUMBER OF VIEWS: One view. TECHNIQUE: Single frontal radiographic view of the chest acquired. RADIATION DOSE: NA LIMITATIONS: Hand positioning. FINDINGS: LUNGS AND PLEURA: No opacities, masses or pneumothorax. No pleural effusion. MEDIASTINUM AND HILAR STRUCTURES: No masses. Contour normal. HEART AND VASCULAR STRUCTURES: Heart normal in size. Normal vasculature. BONES: No acute findings. HARDWARE: None in the chest. OTHER: No other significant finding. IMPRESSION: NO ACUTE RADIOGRAPHIC FINDING IN THE CHEST. TECHNICAL DOCUMENTATION: JOB ID: [id number] [employer]- All Rights Reserved Reading location - IP/workstation name: [email or web address]
--- NOTE | 2017-12-01 14:40 | RADIOLOGY REPORT (SQ) ---
EXAM DESCRIPTION: CT LTD RENAL STONE PROTOCOL ON COMPLETED DATE/TIME: 12/01/2017 2:10 pm REASON FOR STUDY: flank pain COMPARISON: CT abdomen pelvis 03/11/2016, 12/20/2016, 02/18/2017, 04/23/2017 TECHNIQUE: CT scan of the abdomen and pelvis performed without intravenous or oral contrast. Images reviewed with lung, soft tissue, and bone windows. Reconstructed coronal and sagittal MPR images revi ewed. All images stored on PACS. All CT scanners at this facility use dose modulation, iterative reconstruction, and/or weight based d osing when appropriate to reduce radiation dose to as low as reasonably achievable (ALARA). [facility]: Dose Right [facility]: CareDose [facility]: Dose Right [facility]: Teradose 4D [facility]: [employer] RADIATION DOSE: CT Rad equipment meets quality standard of care and radiation dose reduction techniq ues were employed. CTDIvol: 16.8 mGy. DLP: 865 mGy-cm.mGy. LIMITATIONS: None. FINDINGS: LOWER CHEST: Heavy coronary artery calcifications. NON-CONTRASTED LIVER, SPLEEN, ADRENALS: Evaluation limited by lack of IV contrast. No identified sign ificant masses. PANCREAS: No masses. No peripancreatic inflammatory changes. GALLBLADDER: No identified stones by CT criteria. No inflammatory changes to suggest cholecystitis. RIGHT KIDNEY AND URETER: No suspicious masses. Assessment limited by lack of IV contrast. No signif icant calcifications. No hydronephrosis or hydroureter. LEFT KIDNEY AND URETER: No suspicious masses. Assessment limited by lack of IV contrast. 3 cm cyst l eft lower pole kidney. No significant calcifications. No hydronephrosis or hydroureter. AORTA AND RETROPERITONEUM: No aneurysm. No retroperitoneal masses or adenopathy. BOWEL AND PERITONEAL CAVITY: No obvious masses or inflammatory changes. No free fluid. Gastrostomy t ube tip in the gastric antrum. APPENDIX: Normal. PELVIS, BLADDER, AND ABDOMINAL WALL:No abnormal masses. No free fluid. Bladder drained by a Vazquez cat heter. 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 Multilevel degenerative changes lumbar spine, with grade 1 anterol isthesis of L4 over L5. OTHER: No other significant finding. IMPRESSION: No CT findings to explain history of flank pain. COMMENT: Quality ID # [id number]: Final reports with documentation of one or more dose reduction techniques (e.g., Automated exposure control, adjustment of the mA and/or kV according to patient size, use of iterative reconstruction technique) TECHNICAL DOCUMENTATION: JOB ID: [id number] [employer]- All Rights Reserved Reading location - IP/workstation name: [email or web address]
[2017-12-01 14:47] LABS: APPEARANCE,URINE TURBID; BILIRUBIN,URINE SMALL (NEGATIVE); CALCIUM OXALATE CRYSTALS,URINE FEW /HPF; GLUCOSE, URINE NEGATIVE (NEGATIVE); KETONES,URINE NEGATIVE (NEGATIVE); LEUKOCYTE ESTERASE,URINE LARGE (NEGATIVE); NITRITE,URINE NEGATIVE (NEGATIVE); PROTEIN,URINE >=500 mg/dL (NEGATIVE); URINE SPECIFIC GRAVITY 1.018; UROBILINOGEN,URINE NEGATIVE mg/dL (<2.0)
[2017-12-01 14:50] LABS: COLOR,URINE YELLOW
[2017-12-01 15:20] LABS: ABSOLUTE EOSINOPHILS # (AUTO) 0.7 10^3/uL (0.0-0.6); ABSOLUTE LYMPHOCYTES (AUTO) 0.9 10^3/uL (0.5-4.7); ABSOLUTE MONOCYTES (AUTO) 0.7 10^3/uL (0.1-1.4); ABSOLUTE NEUT (AUTO) 13.4 10^3/uL (1.7-8.2); BASOPHILS % (AUTO) 0.2 % (0-2); EOSINOPHILS % (AUTO) 4.5 % (0-6); HEMATOCRIT 38.9 % (37.9-51.0); LYMPHOCYTES % (AUTO) 5.9 % (13-45); MEAN CORPUSCULAR HEMOGLOBIN 29.9 pg (27.0-33.4); MEAN CORPUSCULAR HGB CONC 33.5 g/dL (32.0-36.0); MEAN CORPUSCULAR VOLUME 89 fl (80-97); MONOCYTES % (AUTO) 4.7 % (3-13); PLATELET COUNT 192 10^3/uL (150-450); RED BLOOD COUNT 4.35 10^6/uL (4.35-5.55); RED CELL DISTRIBUTION WIDTH 16.6 % (11.5-14.0); SEGMENTED NEUTROPHILS % (AUTO) 84.7 % (42-78); TOTAL CELLS COUNTED % (AUTO) 100 %; WHITE BLOOD COUNT 15.9 10^3/uL (4.0-10.5)
[2017-12-01] MEDS ORDERED: CIPROFLOXACIN 400 MG/D5W RTU 400 MG/200 ML RTUPB IV ONE (15:25)
[2017-12-01 17:48] LABS: ALANINE AMINOTRANSFERASE 16 U/L (21-72); ALBUMIN 3.6 g/dL (3.5-5.0); ALKALINE PHOSPHATASE 110 U/L (38-126); ANION GAP 11 (5-19); ASPARTATE AMINO TRANSFERASE 13 U/L (17-59); BILIRUBIN,DIRECT 0.3 mg/dL (0.0-0.4); BILIRUBIN,TOTAL 0.3 mg/dL (0.2-1.3); BLOOD UREA NITROGEN 40 mg/dL (7-20); CALCIUM 9.7 mg/dL (8.4-10.2); CARBON DIOXIDE 35 mmol/L (22-30); CHLORIDE 100 mmol/L (98-107); GLUCOSE 231 mg/dL (75-110); POTASSIUM 3.5 mmol/L (3.6-5.0); SODIUM 145.9 mmol/L (137-145); TOTAL PROTEIN 8.1 g/dL (6.3-8.2)
[2017-12-01] MEDS ORDERED: LIDOCAINE 2% URO-JET 5 ML KIT MM ONE (19:01)
[2017-12-01] MEDS ORDERED: ONDANSETRON HCL INJ/PF 4 MG/2 ML SDV IV PRN (19:31)
[2017-12-01] MEDS ORDERED: IPRATROPIUM/ALBUTEROL 0.5-2.5 MG/3 ML AMPUL NEB PRN (19:31)
[2017-12-01] MEDS ORDERED: DEXTROSE 40% GEL 15 GM TUBE PO PRN ×2 (19:39)
[2017-12-01] MEDS ORDERED: GLUCAGON,HUMAN RECOMB 1 MG INJ IM PRN (19:39)
[2017-12-01] MEDS ORDERED: DEXTROSE 50%-WATER 25 GM/50 ML DISP.SYRIN IV PRN ×2 (19:39)
[2017-12-01] MEDS: ACETAMINOPHEN 650 MG SUPP.RECT PR ONE (19:47)
--- NOTE | 2017-12-01 20:02 | PDOC H&P ---
History of Present Illness Admission Date/PCP: 12/01/17 18:44 KATIE KOROMA DO History of Present Illness: THAD JOY is a 76 year old black male patient with multiple comorbidities including hypertension, hyperlipidemia, diabetes mellitus, COPD, coronary artery disease and prior stroke with residual aphasia, Brought from [facility] with complaints of Vazquez catheter leakage and erythema on his thigh. Since patient is aphasic from prior stroke he denies social history so brief history is obtained from the ER attending note. Per ER attending note patient brought with complaints of Vazquez catheter located and draining around the catheter, patient is nonverbal secondary to history of CVA, was seen emergency department on October 22, 2017 and had Vazquez catheter change due to these problems, patient continued to have leakage around the Vazquez catheter and his daughter who is at bedside during the encounter report is that he also has redness and irritation of his inner thighs and flanks she is also concerned about possible aspiration pneumonia as she found him lying flat. His initial blood work shows moderate leukocytosis of 16,000 and his urinalysis positive large leukocyte esterase. Further detailed history and review of systems is unobtainable. Past Medical History Cardiac Medical History: Reports: Myocardial Infarction, Hyperlipidema, Hypertension Pulmonary Medical History: Reports: Chronic Obstructive Pulmonary Disease (COPD) , Pneumonia Neurological Medical History: Reports: Seizures Endocrine Medical History: Reports: Diabetes Mellitus Type 1, Diabetes Mellitus Type 2 Denies: Hyperthyroidism, Hypothyroidism GI Medical History: Reports: Gastroesophageal Reflux Disease - PEG tube post CVA Denies: Cirrhosis, Hepatitis Psychiatric Medical History: Reports: Dementia, Depression Hematology: Reports: Anemia Past Surgical History Past Surgical History: Reports: Orthopedic Surgery - Right knee surgery. Titanium jelani, left femur after accident., Other - PEG tube placed Social History Smoking Status: Never Smoker Frequency of Alcohol Use: None Hx Recreational Drug Use: No Drugs: None Hx Prescription Drug Abuse: No Family History Family History: None, Other Parental Family History Reviewed: No Children Family History Reviewed: No Sibling(s) Family History Reviewed.: No - Unobtained because of patient's if he Medication/Allergy Allergies/Adverse Reactions: divalproex sodium [From Depakote] Allergy (Verified 01/17/17 17:13) oxycodone [Oxycodone] Adverse Reaction (Intermediate, Verified 01/12/17 19:24) agitation simvastatin [From Zocor] Adverse Reaction (Unknown, Verified 01/12/17 19:24) dysarthria Review of Systems ROS unobtainable: Other - Aphasia due to prior stroke Physical Exam Vital Signs: Temp Pulse Resp BP Pulse Ox 99.9 F 84 14 145/65 H 100 12/01/17 18:25 12/01/17 18:25 12/01/17 18:25 12/01/17 18:25 12/01/17 18:25 General appearance: PRESENT: no acute distress Head exam: PRESENT: atraumatic, normocephalic Eye exam: PRESENT: conjunctiva pink Cardiovascular exam: PRESENT: RRR. ABSENT: diastolic murmur, rubs, systolic murmur Pulses: PRESENT: normal carotid pulses GI/Abdominal exam: PRESENT: normal bowel sounds - PEG tube in situ, other Gentrourinary exam: PRESENT: indwelling catheter Skin exam: PRESENT: other - Blisters and healed lesions on his right thigh Results Impressions: Chest X-Ray 12/01/17 13:48 IMPRESSION: NO ACUTE RADIOGRAPHIC FINDING IN THE CHEST. Limited or Localized CT 12/01/17 13:48 IMPRESSION: No CT findings to explain history of flank pain. Assessment & Plan - Diagnosis (1) Complicated urinary tract infection Is this a current diagnosis for this admission?: Yes Plan: Since patient has chronic Vazquez catheter and history of Enterococcus faecalis prostate abscess, started him on cefepime. We will adjust his antibiotics further based on his clinical progress and culture and sensitivity pattern. (2) COPD (chronic obstructive pulmonary disease) Qualifiers: Chronic bronchitis type: unspecified Is this a current diagnosis for this admission?: Yes Plan: Currently patient is in remission, and will put him on as needed DuoNeb every 6 hours. (3) Diabetes 1.5, managed as type 2 Is this a current diagnosis for this admission?: Yes Plan: I will start his feedings through his PEG tube with Glucerna. We will put him on sliding scale and start him on his medications. (4) Hypertension Qualifiers: Hypertension type: essential hypertension Qualified Code(s): I10 - Essential (primary) hypertension Is this a current diagnosis for this admission?: Yes Plan: Continue his home medications - Time Time Spent: 30 to 50 Minutes Within: within 72 hours - Inpatient Certification Medical Necessity: Need For IV Fluids
[2017-12-01] MEDS ORDERED: CEFEPIME 1 GM/D5W RTU 1 GM/50 ML RTUPB IV ONE (21:00)
[2017-12-02] MEDS: INSULIN LISPRO 100 UNIT/ML 3 ML VIAL SUBCUT PRN ×5 (02:19→22:50)
[2017-12-02] MEDS: LANSOPRAZOLE 30 MG TAB.RAP.DR PO SCH (05:57)
[2017-12-02 06:52] LABS: ABSOLUTE EOSINOPHILS # (AUTO) 1.2 10^3/uL (0.0-0.6); ABSOLUTE LYMPHOCYTES (AUTO) 1.4 10^3/uL (0.5-4.7); ABSOLUTE MONOCYTES (AUTO) 0.9 10^3/uL (0.1-1.4); ABSOLUTE NEUT (AUTO) 12.1 10^3/uL (1.7-8.2); BASOPHILS % (AUTO) 0.3 % (0-2); EOSINOPHILS % (AUTO) 7.8 % (0-6); HEMATOCRIT 35.8 % (37.9-51.0); HEMOGLOBIN 11.7 g/dL (13.5-17.0); LYMPHOCYTES % (AUTO) 8.9 % (13-45); MEAN CORPUSCULAR HEMOGLOBIN 29.4 pg (27.0-33.4); MEAN CORPUSCULAR HGB CONC 32.7 g/dL (32.0-36.0); MEAN CORPUSCULAR VOLUME 90 fl (80-97); MONOCYTES % (AUTO) 5.7 % (3-13); PLATELET COUNT 207 10^3/uL (150-450); RED BLOOD COUNT 3.99 10^6/uL (4.35-5.55); RED CELL DISTRIBUTION WIDTH 16.3 % (11.5-14.0); SEGMENTED NEUTROPHILS % (AUTO) 77.3 % (42-78); TOTAL CELLS COUNTED % (AUTO) 100 %; WHITE BLOOD COUNT 15.6 10^3/uL (4.0-10.5)
[2017-12-02 07:18] LABS: ANION GAP 9 (5-19); BLOOD UREA NITROGEN 38 mg/dL (7-20); CALCIUM 9.6 mg/dL (8.4-10.2); CARBON DIOXIDE 34 mmol/L (22-30); CHLORIDE 103 mmol/L (98-107); GLUCOSE 170 mg/dL (75-110); SODIUM 145.6 mmol/L (137-145)
--- NOTE | 2017-12-02 07:38 | EKG REPORT ---
SEVERITY:- ABNORMAL ECG - SINUS RHYTHM EARLY PRECORDIAL R/S TRANSITION NONSPECIFIC ST-T CHANGES LATERAL LEADS UNCHANGED FROM 09/20/17 : Confirmed by: Francis Tello MD 02-Dec-2017 07:37:41
[2017-12-02] MEDS: ENOXAPARIN SODIUM INJ 40 MG/0.4 ML DISP.SYRIN SUBCUT SCH (10:00)
[2017-12-02] MEDS ORDERED: CEFEPIME 1 GM/D5W RTU 1 GM/50 ML RTUPB IV SCH (10:00)
[2017-12-02] MEDS ORDERED: ACETAMINOPHEN 325 MG TABLET PO PRN (12:16)
[2017-12-02] MEDS ORDERED: DOXYCYCLINE HYCLATE 100 MG TABLET PO ONE (13:30)
[2017-12-02] MEDS: METHYLPREDNISOLONE INJ 40 MG/1 ML SDV IV SCH ×2 (13:47→22:40)
[2017-12-02] MEDS: POTASSIUM CHLORIDE 20 MEQ/15 ML UDCUP PO SCH ×3 (13:47→20:29)
--- NOTE | 2017-12-02 17:52 | PDOC PROGRESS REPORT ---
Subjective Progress Note for:: 12/02/17 Subjective:: Unable to obtain due to mental status Review of system Unable to obtain due to mental status All laboratories and significant diagnostics have been reviewed Reason For Visit: COMPLICATED UTI Physical Exam Vital Signs: Temp Pulse Resp BP Pulse Ox 97.5 F 78 18 104/52 L 95 12/02/17 03:47 12/02/17 03:47 12/02/17 03:47 12/02/17 06:44 12/02/17 03:47 Intake & Output 12/01/17 12/02/17 12/03/17 06:59 06:59 06:59 Intake Total 280 Output Total 400 Balance -120 Weight 85 kg General appearance: PRESENT: no acute distress, well-developed, well-nourished Head exam: PRESENT: atraumatic, normocephalic Eye exam: PRESENT: conjunctiva pink, EOMI, PERRLA Neck exam: PRESENT: full ROM. ABSENT: JVD, lymphadenopathy, tenderness Respiratory exam: PRESENT: clear to auscultation yokasta Cardiovascular exam: PRESENT: RRR. ABSENT: diastolic murmur, systolic murmur Vascular exam: PRESENT: normal capillary refill GI/Abdominal exam: PRESENT: normal bowel sounds, soft. ABSENT: tenderness Extremities exam: ABSENT: full ROM, pedal edema Musculoskeletal exam: ABSENT: ambulatory Neurological exam: PRESENT: other - Obtunded Skin exam: PRESENT: vesicles, other - Vesicular lesions noted the lateral aspect of right thigh Results Laboratory Results: 12/02/17 05:30 12/02/17 05:30 WBC 15.6 H RBC 3.99 L Hgb 11.7 L Hct 35.8 L MCV 90 MCH 29.4 MCHC 32.7 RDW 16.3 H Plt Count 207 Seg Neutrophils % 77.3 Lymphocytes % 8.9 L Monocytes % 5.7 Eosinophils % 7.8 H Basophils % 0.3 Absolute Neutrophils 12.1 H Absolute Lymphocytes 1.4 Absolute Monocytes 0.9 Absolute Eosinophils 1.2 H Absolute Basophils 0.0 Impressions: Chest X-Ray 12/01/17 13:48 IMPRESSION: NO ACUTE RADIOGRAPHIC FINDING IN THE CHEST. Limited or Localized CT 12/01/17 13:48 IMPRESSION: No CT findings to explain history of flank pain. Assessment & Plan - Diagnosis (1) UTI (urinary tract infection) due to urinary indwelling Vazquez catheter Qualifiers: Indwelling urinary catheter type: indwelling urethral catheter Encounter type: sequela Qualified Code(s): T83.511S - Infection and inflammatory reaction due to indwelling urethral catheter, sequela; N39.0 - Urinary tract infection, site not specified; N39.0 - Urinary tract infection, site not specified Is this a current diagnosis for this admission?: Yes Plan: To change to Zosyn. (2) Bullous dermatitis Is this a current diagnosis for this admission?: Yes Plan: Will place on IV steroids and doxycycline. On exam it appears that he had experienced similar bouts in the past (3) Acute encephalopathy Is this a current diagnosis for this admission?: Yes Plan: Unable to tell how much is his baseline patient barely responsive. We will reevaluate in a.m. (4) Anemia of chronic disease Is this a current diagnosis for this admission?: Yes Plan: Will trend (5) Diabetes 1.5, managed as type 2 Is this a current diagnosis for this admission?: Yes Plan: Continue present management (6) Hypertension Qualifiers: Hypertension type: essential hypertension Qualified Code(s): I10 - Essential (primary) hypertension Is this a current diagnosis for this admission?: Yes Plan: We will continue outpatient regimen (7) History of stroke Is this a current diagnosis for this admission?: Yes Plan: Supportive - Time Time Spent with patient: 15-24 minutes Medications reviewed and adjusted accordingly: Yes Anticipated discharge: SNF Within: within 48 hours - Inpatient Certification Based on my medical assessment, after consideration of the patient's comorbidities, presenting symptoms, or acuity I expect that the services needed warrant INPATIENT care.: Yes I certify that my determination is in accordance with my understanding of Medicare's requirements for reasonable and necessary INPATIENT services [42 CFR 412.3e].: Yes Medical Necessity: Significant Comorbidiites Make Outpatient Treatment Too Risky , Need Close Monitoring Due to Risk of Patient Decompensation, Need for IV Antibiotics
[2017-12-02] MEDS: PIPERACILLIN SODIUM/TAZOBACTAM 3.375 GM in NORMAL SALINE 100 ML IV SCH (20:59)
[2017-12-02] MEDS: DOXYCYCLINE HYCLATE 100 MG TABLET PO SCH (22:17)
[2017-12-03] MEDS: PIPERACILLIN SODIUM/TAZOBACTAM 3.375 GM in NORMAL SALINE 100 ML IV SCH ×2 (03:48→08:52)
[2017-12-03] MEDS: INSULIN LISPRO 100 UNIT/ML 3 ML VIAL SUBCUT PRN ×3 (05:44→15:47)
[2017-12-03] MEDS: LANSOPRAZOLE 30 MG TAB.RAP.DR PO SCH (05:44)
[2017-12-03] MEDS: METHYLPREDNISOLONE INJ 40 MG/1 ML SDV IV SCH (05:44)
[2017-12-03 05:49] LABS: ABSOLUTE LYMPHOCYTES (AUTO) 0.9 10^3/uL (0.5-4.7); ABSOLUTE MONOCYTES (AUTO) 0.2 10^3/uL (0.1-1.4); ABSOLUTE NEUT (AUTO) 12.4 10^3/uL (1.7-8.2); BASOPHILS % (AUTO) 0.1 % (0-2); HEMATOCRIT 34.3 % (37.9-51.0); HEMOGLOBIN 11.2 g/dL (13.5-17.0); LYMPHOCYTES % (AUTO) 6.5 % (13-45); MEAN CORPUSCULAR HEMOGLOBIN 29.2 pg (27.0-33.4); MEAN CORPUSCULAR HGB CONC 32.7 g/dL (32.0-36.0); MEAN CORPUSCULAR VOLUME 89 fl (80-97); MONOCYTES % (AUTO) 1.4 % (3-13); PLATELET COUNT 196 10^3/uL (150-450); RED BLOOD COUNT 3.84 10^6/uL (4.35-5.55); RED CELL DISTRIBUTION WIDTH 16.5 % (11.5-14.0); TOTAL CELLS COUNTED % (AUTO) 100 %; WHITE BLOOD COUNT 13.5 10^3/uL (4.0-10.5)
[2017-12-03 06:16] LABS: ANION GAP 14 (5-19); BLOOD UREA NITROGEN 41 mg/dL (7-20); CALCIUM 9.5 mg/dL (8.4-10.2); CARBON DIOXIDE 26 mmol/L (22-30); CHLORIDE 107 mmol/L (98-107); GLUCOSE 351 mg/dL (75-110); SODIUM 147.2 mmol/L (137-145)
[2017-12-03 06:27] LABS: POTASSIUM 5.8 mmol/L (3.6-5.0)
[2017-12-03] MEDS: DOXYCYCLINE HYCLATE 100 MG TABLET PO SCH ×2 (09:12→21:46)
[2017-12-03] MEDS: ENOXAPARIN SODIUM INJ 40 MG/0.4 ML DISP.SYRIN SUBCUT SCH (09:12)
[2017-12-03] MEDS ORDERED: SODIUM POLYSTYRENE SULFONATE 15 GM/60 ML PO ONE (11:15)
[2017-12-03] MEDS ORDERED: INSULIN DETEMIR 100 UNIT/ML 3 ML PEN SUBCUT ONE (12:00)
[2017-12-03] MEDS: ALBUTEROL SULFATE 0.083% NEB 2.5 MG/3 ML AMPUL NEB SCH ×2 (13:47→19:58)
[2017-12-03] MEDS: CEFUROXIME 500 MG TABLET PO SCH (18:11)
--- NOTE | 2017-12-03 18:31 | PDOC PROGRESS REPORT ---
Subjective Progress Note for:: 12/03/17 Subjective:: Unable to obtain due to mental status. Nurse reports that patient started to be more alert. She has taking care of this patient and states that he is not yet back to baseline Review of system Unable to obtain due to mental status All laboratories and significant diagnostics have been reviewed Reason For Visit: COMPLICATED UTI Physical Exam Vital Signs: Temp Pulse Resp BP Pulse Ox 98.5 F 63 24 H 134/67 H 90 L 12/03/17 07:27 12/03/17 07:27 12/03/17 07:27 12/03/17 07:27 12/03/17 07:27 Intake & Output 12/02/17 12/03/17 12/04/17 06:59 06:59 06:59 Intake Total 280 1478 30 Output Total 400 750 Balance -120 728 30 Weight 85 kg 86.1 kg General appearance: PRESENT: cooperative, well-developed, well-nourished Head exam: PRESENT: atraumatic, normocephalic Eye exam: PRESENT: conjunctiva pink, EOMI, PERRLA Ear exam: PRESENT: normal external ear exam Mouth exam: PRESENT: moist Neck exam: PRESENT: full ROM. ABSENT: JVD, lymphadenopathy, tenderness Respiratory exam: PRESENT: clear to auscultation yokasta Cardiovascular exam: PRESENT: RRR. ABSENT: diastolic murmur, systolic murmur Vascular exam: PRESENT: normal capillary refill GI/Abdominal exam: PRESENT: normal bowel sounds, soft. ABSENT: tenderness Extremities exam: ABSENT: full ROM, pedal edema Musculoskeletal exam: ABSENT: ambulatory Neurological exam: PRESENT: awake Psychiatric exam: PRESENT: depressed Skin exam: PRESENT: vesicles - Vesicles the right thigh improved Results Laboratory Results: 12/03/17 04:34 12/03/17 04:34 12/03/17 12/03/17 04:34 04:34 WBC 13.5 H RBC 3.84 L Hgb 11.2 L Hct 34.3 L MCV 89 MCH 29.2 MCHC 32.7 RDW 16.5 H Plt Count 196 Seg Neutrophils % 92.0 H Lymphocytes % 6.5 L Monocytes % 1.4 L Eosinophils % 0.0 Basophils % 0.1 Absolute Neutrophils 12.4 H Absolute Lymphocytes 0.9 Absolute Monocytes 0.2 Absolute Eosinophils 0.0 Absolute Basophils 0.0 Sodium 147.2 H Potassium 5.8 H D Chloride 107 Carbon Dioxide 26 Anion Gap 14 BUN 41 H Creatinine 0.87 Est GFR ( Amer) > 60 Est GFR (Non-Af Amer) > 60 Glucose 351 H Calcium 9.5 Magnesium 2.6 H Impressions: Chest X-Ray 12/01/17 13:48 IMPRESSION: NO ACUTE RADIOGRAPHIC FINDING IN THE CHEST. Limited or Localized CT 12/01/17 13:48 IMPRESSION: No CT findings to explain history of flank pain. Assessment & Plan - Diagnosis (1) UTI (urinary tract infection) due to urinary indwelling Vazquez catheter Qualifiers: Indwelling urinary catheter type: indwelling urethral catheter Encounter type: sequela Qualified Code(s): T83.511S - Infection and inflammatory reaction due to indwelling urethral catheter, sequela; N39.0 - Urinary tract infection, site not specified; N39.0 - Urinary tract infection, site not specified Is this a current diagnosis for this admission?: Yes Plan: To change to ceftin. Her grew higher than 100,000 colonies of Proteus mirabilis (2) Bullous dermatitis Is this a current diagnosis for this admission?: Yes Plan: Decrease IV steroids. Continue doxycycline (3) Acute encephalopathy Is this a current diagnosis for this admission?: Yes Plan: As per nurse still not at baseline (4) Anemia of chronic disease Is this a current diagnosis for this admission?: Yes Plan: Will trend (5) Diabetes 1.5, managed as type 2 Is this a current diagnosis for this admission?: Yes Plan: Continue present management (6) Hypertension Qualifiers: Hypertension type: essential hypertension Qualified Code(s): I10 - Essential (primary) hypertension Is this a current diagnosis for this admission?: Yes Plan: Continue outpatient regimen (7) History of stroke Is this a current diagnosis for this admission?: Yes Plan: Supportive - Time Time Spent with patient: 15-24 minutes Medications reviewed and adjusted accordingly: Yes Anticipated discharge: SNF Within: within 24 hours - Inpatient Certification Based on my medical assessment, after consideration of the patient's comorbidities, presenting symptoms, or acuity I expect that the services needed warrant INPATIENT care.: Yes I certify that my determination is in accordance with my understanding of Medicare's requirements for reasonable and necessary INPATIENT services [42 CFR 412.3e].: Yes Medical Necessity: Need Close Monitoring Due to Risk of Patient Decompensation
[2017-12-03] MEDS ORDERED: INSULIN DETEMIR 100 UNIT/ML 3 ML PEN SUBCUT SCH (22:00)
[2017-12-03] MEDS ORDERED: METHYLPREDNISOLONE INJ 40 MG/1 ML SDV IV SCH (22:00)
[2017-12-04] MEDS: LANSOPRAZOLE 30 MG TAB.RAP.DR PO SCH (05:06)
[2017-12-04 05:08] LABS: ABSOLUTE LYMPHOCYTES (AUTO) 1.5 10^3/uL (0.5-4.7); ABSOLUTE MONOCYTES (AUTO) 0.9 10^3/uL (0.1-1.4); ABSOLUTE NEUT (AUTO) 8.1 10^3/uL (1.7-8.2); BASOPHILS % (AUTO) 0.2 % (0-2); EOSINOPHILS % (AUTO) 0.1 % (0-6); HEMATOCRIT 33.2 % (37.9-51.0); HEMOGLOBIN 10.9 g/dL (13.5-17.0); LYMPHOCYTES % (AUTO) 14.3 % (13-45); MEAN CORPUSCULAR HEMOGLOBIN 29.4 pg (27.0-33.4); MEAN CORPUSCULAR HGB CONC 32.8 g/dL (32.0-36.0); MEAN CORPUSCULAR VOLUME 90 fl (80-97); MONOCYTES % (AUTO) 8.7 % (3-13); PLATELET COUNT 216 10^3/uL (150-450); RED BLOOD COUNT 3.71 10^6/uL (4.35-5.55); RED CELL DISTRIBUTION WIDTH 16.3 % (11.5-14.0); SEGMENTED NEUTROPHILS % (AUTO) 76.7 % (42-78); TOTAL CELLS COUNTED % (AUTO) 100 %; WHITE BLOOD COUNT 10.5 10^3/uL (4.0-10.5)
[2017-12-04 05:37] LABS: ANION GAP 14 (5-19); BLOOD UREA NITROGEN 38 mg/dL (7-20); CALCIUM 9.5 mg/dL (8.4-10.2); CARBON DIOXIDE 30 mmol/L (22-30); CHLORIDE 110 mmol/L (98-107); GLUCOSE 366 mg/dL (75-110); SODIUM 153.6 mmol/L (137-145)
[2017-12-04 06:08] LABS: POTASSIUM 3.9 mmol/L (3.6-5.0)
[2017-12-04] MEDS ORDERED: INSULIN DETEMIR 100 UNIT/ML 3 ML PEN SUBCUT SCH (06:55)
[2017-12-04] MEDS: ALBUTEROL SULFATE 0.083% NEB 2.5 MG/3 ML AMPUL NEB SCH ×3 (08:02→19:48)
[2017-12-04] MEDS: INSULIN LISPRO 100 UNIT/ML 3 ML VIAL SUBCUT PRN ×3 (08:05→18:19)
[2017-12-04] MEDS ORDERED: METHYLPREDNISOLONE INJ 40 MG/1 ML SDV IV SCH (10:00)
[2017-12-04] MEDS: DOXYCYCLINE HYCLATE 100 MG TABLET PO SCH ×2 (10:58→23:00)
[2017-12-04] MEDS: CEFUROXIME 500 MG TABLET PO SCH ×2 (10:58→17:44)
[2017-12-04] MEDS: ENOXAPARIN SODIUM INJ 40 MG/0.4 ML DISP.SYRIN SUBCUT SCH (10:58)
[2017-12-04] MEDS ORDERED: DEXTROSE 50%-WATER 25 GM/50 ML DISP.SYRIN IV PRN ×2 (13:33)
[2017-12-04] MEDS ORDERED: GLUCAGON,HUMAN RECOMB 1 MG INJ IM PRN (13:33)
[2017-12-04] MEDS ORDERED: DEXTROSE 40% GEL 15 GM TUBE PO PRN ×2 (13:33)
[2017-12-04] MEDS ORDERED: ONDANSETRON HCL INJ/PF 4 MG/2 ML SDV IV PRN (15:00)
--- NOTE | 2017-12-04 17:02 | PDOC PROGRESS REPORT ---
Subjective Progress Note for:: 12/04/17 Subjective:: Unable to obtain due to mental status. Patient keeps constantly moaning. When talking to nurse we both believe that he might be in pain. Dietitian had increased rate of enteral feedings Review of systems All systems have been reviewed and negative except as in subjective All laboratories and significant diagnostics have been reviewed Reason For Visit: COMPLICATED UTI Physical Exam Vital Signs: Temp Pulse Resp BP Pulse Ox 98.5 F 81 14 154/72 H 100 12/04/17 15:35 12/04/17 15:35 12/04/17 15:35 12/04/17 15:35 12/04/17 15:35 Intake & Output 12/03/17 12/04/17 12/05/17 06:59 06:59 06:59 Intake Total 1478 783 0 Output Total 750 800 175 Balance 728 -17 -175 Weight 86.1 kg 87.9 kg General appearance: PRESENT: cooperative, well-developed, well-nourished, other - Moaning Head exam: PRESENT: atraumatic, normocephalic Eye exam: PRESENT: conjunctiva pink, EOMI, PERRLA Neck exam: PRESENT: full ROM. ABSENT: JVD, lymphadenopathy, tenderness Respiratory exam: PRESENT: clear to auscultation yokasta Cardiovascular exam: PRESENT: RRR. ABSENT: diastolic murmur, systolic murmur Vascular exam: PRESENT: normal capillary refill GI/Abdominal exam: PRESENT: normal bowel sounds, soft, tenderness Extremities exam: ABSENT: full ROM Musculoskeletal exam: ABSENT: ambulatory Neurological exam: PRESENT: awake Skin exam: PRESENT: vesicles Results Laboratory Results: 12/04/17 03:56 12/04/17 03:56 12/04/17 12/04/17 03:56 03:56 WBC 10.5 RBC 3.71 L Hgb 10.9 L Hct 33.2 L MCV 90 MCH 29.4 MCHC 32.8 RDW 16.3 H Plt Count 216 Seg Neutrophils % 76.7 Lymphocytes % 14.3 Monocytes % 8.7 Eosinophils % 0.1 Basophils % 0.2 Absolute Neutrophils 8.1 Absolute Lymphocytes 1.5 Absolute Monocytes 0.9 Absolute Eosinophils 0.0 Absolute Basophils 0.0 Sodium 153.6 H Potassium 3.9 D Chloride 110 H Carbon Dioxide 30 Anion Gap 14 BUN 38 H Creatinine 0.76 Est GFR ( Amer) > 60 Est GFR (Non-Af Amer) > 60 Glucose 366 H Calcium 9.5 Impressions: Chest X-Ray 12/01/17 13:48 IMPRESSION: NO ACUTE RADIOGRAPHIC FINDING IN THE CHEST. Limited or Localized CT 12/01/17 13:48 IMPRESSION: No CT findings to explain history of flank pain. Assessment & Plan - Diagnosis (1) UTI (urinary tract infection) due to urinary indwelling Vazquez catheter Qualifiers: Indwelling urinary catheter type: indwelling urethral catheter Encounter type: sequela Qualified Code(s): T83.511S - Infection and inflammatory reaction due to indwelling urethral catheter, sequela; N39.0 - Urinary tract infection, site not specified; N39.0 - Urinary tract infection, site not specified Is this a current diagnosis for this admission?: Yes Plan: He grew higher than 100,000 colonies of Proteus mirabilis. Continue Ceftin (2) Bullous dermatitis Is this a current diagnosis for this admission?: Yes Plan: Continue doxycycline. Continue IV steroids due to elevated blood sugars (3) Acute encephalopathy Is this a current diagnosis for this admission?: Yes Plan: As per nurse still not at baseline. Patient keeps moaning like his in pain. Will order a CT of the abdomen and pelvis. To place patient on morphine IR and follow-up response (4) Anemia of chronic disease Is this a current diagnosis for this admission?: Yes Plan: Stable (5) Diabetes 1.5, managed as type 2 Is this a current diagnosis for this admission?: Yes Plan: Increase Lantus and to call her with Humalog every 6 hours (6) Hypertension Qualifiers: Hypertension type: essential hypertension Qualified Code(s): I10 - Essential (primary) hypertension Is this a current diagnosis for this admission?: Yes Plan: Continue outpatient regimen (7) History of stroke Is this a current diagnosis for this admission?: Yes Plan: Supportive (8) Hypernatremia Is this a current diagnosis for this admission?: Yes Plan: Order free water through PEG tube and trend - Time Time Spent with patient: 15-24 minutes Medications reviewed and adjusted accordingly: Yes Anticipated discharge: SNF Within: within 72 hours - Inpatient Certification Based on my medical assessment, after consideration of the patient's comorbidities, presenting symptoms, or acuity I expect that the services needed warrant INPATIENT care.: Yes I certify that my determination is in accordance with my understanding of Medicare's requirements for reasonable and necessary INPATIENT services [42 CFR 412.3e].: Yes Medical Necessity: Significant Comorbidiites Make Outpatient Treatment Too Risky , Need Close Monitoring Due to Risk of Patient Decompensation, Need For IV Fluids
--- NOTE | 2017-12-04 17:27 | RADIOLOGY REPORT (SQ) ---
EXAM DESCRIPTION: CT ABD/PELVIS WITH IV ONLY COMPLETED DATE/TIME: 12/04/2017 5:07 pm REASON FOR STUDY: abdominal pain COMPARISON: 12/01/2017 and 09/30/2017 TECHNIQUE: CT scan of the abdomen and pelvis performed using helical scanning technique with dynamic intravenous contrast injection. No oral contrast. Images reviewed with lung, soft tissue, and bone windows. Reconstructed coronal and sagittal MPR images reviewed. Delayed images for evaluation of the urinary system also acquired. All images stored on PACS. All CT scanners at this facility use dose modulation, iterative reconstruction, and/or weight based d osing when appropriate to reduce radiation dose to as low as reasonably achievable (ALARA). [facility]: Dose Right [facility]: CareDose [facility]: Dose Right [facility]: Teradose 4D [facility]: Venture Incite CONTRAST TYPE AND DOSE: contrast/concentration: Isovue 370.00 mg/ml; Total Contrast Delivered: 95.0 ml; Total Saline Delivered: 70.0 ml RENAL FUNCTION: GFR > 60. RADIATION DOSE: CT Rad equipment meets quality standard of care and radiation dose reduction techniq ues were employed. CTDIvol: 19.1 - 20.5 mGy. DLP: 2035 mGy-cm.. LIMITATIONS: None. FINDINGS: LOWER CHEST: Minimal subsegmental atelectasis. LIVER: Normal size. Small parenchymal cysts. No dilated ducts. SPLEEN: Normal size. No focal lesions. PANCREAS: No masses. No significant calcifications. No adjacent inflammation or peripancreatic fluid collections. Pancreatic duct not dilated. GALLBLADDER: No identified stones by CT criteria. No inflammatory changes to suggest cholecystitis. ADRENAL GLANDS: No significant masses or asymmetry. RIGHT KIDNEY AND URETER: No solid masses. No significant calcifications. No hydronephrosis or hyd roureter. LEFT KIDNEY AND URETER: No solid masses. No significant calcifications. No hydronephrosis or hydr oureter. AORTA AND VESSELS: No aneurysm. No dissection. Renal arteries, SMA, celiac without stenosis. RETROPERITONEUM: No retroperitoneal adenopathy, hemorrhage or masses. BOWEL AND PERITONEAL CAVITY: No masses or inflammatory changes. No free fluid or peritoneal masses. APPENDIX: Normal. PELVIS: Diminished ovoid hypodensity in the right prostate now measures 2.8 cm in greatest dimension, previously 3.7 cm. No adjacent inflammatory stranding. No free fluid. Normal bladder. ABDOMINAL WALL: No masses. No hernias. BONES: No acute findings. OTHER: No other significant finding. IMPRESSION: Compared with September 2017 there is diminished ovoid hypodensity in the right prostate now measures 2.8 cm in greatest dimension, previously 3.7 cm. Otherwise no acute findings. TECHNICAL DOCUMENTATION: JOB ID: [id number] [place]-72 Quality ID # [id number]: Final reports with documentation of one or more dose reduction techniques (e.g., Au tomated exposure control, adjustment of the mA and/or kV according to patient size, use of iterative reconstruction technique) 2010 [employer]- All Rights Reserved Reading location - IP/workstation name: [facility]
[2017-12-04] MEDS ORDERED: MORPHINE SULFATE IR 15 MG TABLET PO SCH (18:00)
[2017-12-04] MEDS: INSULIN DETEMIR 100 UNIT/ML 3 ML PEN SUBCUT SCH (23:00)
[2017-12-05 04:57] LABS: ABSOLUTE EOSINOPHILS # (AUTO) 0.6 10^3/uL (0.0-0.6); ABSOLUTE LYMPHOCYTES (AUTO) 1.2 10^3/uL (0.5-4.7); ABSOLUTE MONOCYTES (AUTO) 0.6 10^3/uL (0.1-1.4); ABSOLUTE NEUT (AUTO) 5.1 10^3/uL (1.7-8.2); BASOPHILS % (AUTO) 0.4 % (0-2); EOSINOPHILS % (AUTO) 7.8 % (0-6); HEMATOCRIT 33.9 % (37.9-51.0); HEMOGLOBIN 11.3 g/dL (13.5-17.0); LYMPHOCYTES % (AUTO) 15.8 % (13-45); MEAN CORPUSCULAR HEMOGLOBIN 29.8 pg (27.0-33.4); MEAN CORPUSCULAR HGB CONC 33.4 g/dL (32.0-36.0); MEAN CORPUSCULAR VOLUME 89 fl (80-97); MONOCYTES % (AUTO) 8.2 % (3-13); PLATELET COUNT 225 10^3/uL (150-450); RED CELL DISTRIBUTION WIDTH 16.2 % (11.5-14.0); SEGMENTED NEUTROPHILS % (AUTO) 67.8 % (42-78); TOTAL CELLS COUNTED % (AUTO) 100 %; WHITE BLOOD COUNT 7.6 10^3/uL (4.0-10.5)
[2017-12-05 05:17] LABS: ANION GAP 12 (5-19); BLOOD UREA NITROGEN 27 mg/dL (7-20); CALCIUM 9.1 mg/dL (8.4-10.2); CARBON DIOXIDE 34 mmol/L (22-30); CHLORIDE 108 mmol/L (98-107); GLUCOSE 241 mg/dL (75-110); POTASSIUM 3.3 mmol/L (3.6-5.0); SODIUM 154.4 mmol/L (137-145)
[2017-12-05] MEDS: LANSOPRAZOLE 30 MG TAB.RAP.DR PO SCH (06:13)
[2017-12-05] MEDS: ALBUTEROL SULFATE 0.083% NEB 2.5 MG/3 ML AMPUL NEB SCH ×3 (08:01→19:46)
[2017-12-05] MEDS: INSULIN LISPRO 100 UNIT/ML 3 ML VIAL SUBCUT PRN ×3 (09:40→18:51)
[2017-12-05] MEDS: INSULIN DETEMIR 100 UNIT/ML 3 ML PEN SUBCUT SCH ×2 (09:40→22:00)
[2017-12-05] MEDS: ENOXAPARIN SODIUM INJ 40 MG/0.4 ML DISP.SYRIN SUBCUT SCH (09:40)
[2017-12-05] MEDS: POTASSIUM CHLORIDE 20 MEQ/15 ML UDCUP PO SCH ×3 (09:43→17:01)
[2017-12-05] MEDS: DOXYCYCLINE HYCLATE 100 MG TABLET PO SCH ×2 (09:44→22:02)
[2017-12-05] MEDS: CEFUROXIME 500 MG TABLET PO SCH ×2 (09:44→17:02)
--- NOTE | 2017-12-05 16:54 | PDOC PROGRESS REPORT ---
Subjective Progress Note for:: 12/05/17 Subjective:: Unable to obtain due to mental status. Patient keeps constantly moaning. Family refused morphine Review of systems All systems have been reviewed and negative except as in subjective All laboratories and significant diagnostics have been reviewed Reason For Visit: COMPLICATED UTI Physical Exam Vital Signs: Temp Pulse Resp BP Pulse Ox 98.6 F 66 20 157/73 H 98 12/05/17 06:18 12/05/17 06:18 12/05/17 06:18 12/05/17 06:18 12/05/17 06:18 Intake & Output 12/04/17 12/05/17 12/06/17 06:59 06:59 06:59 Intake Total 783 2283 Output Total 800 925 Balance -17 1358 Weight 87.9 kg 84.5 kg General appearance: PRESENT: cooperative, other - Constantly moaning Head exam: PRESENT: atraumatic, normocephalic Eye exam: PRESENT: EOMI, PERRLA Ear exam: PRESENT: normal external ear exam Neck exam: ABSENT: full ROM, JVD, lymphadenopathy, tenderness Respiratory exam: PRESENT: clear to auscultation yokasta Cardiovascular exam: PRESENT: RRR. ABSENT: diastolic murmur, systolic murmur Pulses: PRESENT: normal femoral pulses GI/Abdominal exam: PRESENT: normal bowel sounds, soft, tenderness Extremities exam: ABSENT: full ROM, pedal edema Musculoskeletal exam: ABSENT: ambulatory Neurological exam: PRESENT: awake, aphasic - Constantly moaning, other Skin exam: PRESENT: vesicles - Vesicular lesions to right thigh improving Results Laboratory Results: 12/05/17 03:54 12/05/17 03:54 12/05/17 12/05/17 03:54 03:54 WBC 7.6 RBC 3.80 L Hgb 11.3 L Hct 33.9 L MCV 89 MCH 29.8 MCHC 33.4 RDW 16.2 H Plt Count 225 Seg Neutrophils % 67.8 Lymphocytes % 15.8 Monocytes % 8.2 Eosinophils % 7.8 H Basophils % 0.4 Absolute Neutrophils 5.1 Absolute Lymphocytes 1.2 Absolute Monocytes 0.6 Absolute Eosinophils 0.6 Absolute Basophils 0.0 Sodium 154.4 H Potassium 3.3 L Chloride 108 H Carbon Dioxide 34 H Anion Gap 12 BUN 27 H Creatinine 0.68 Est GFR ( Amer) > 60 Est GFR (Non-Af Amer) > 60 Glucose 241 H Calcium 9.1 Impressions: Chest X-Ray 12/01/17 13:48 IMPRESSION: NO ACUTE RADIOGRAPHIC FINDING IN THE CHEST. Limited or Localized CT 12/01/17 13:48 IMPRESSION: No CT findings to explain history of flank pain. Abdomen/Pelvis CT 12/04/17 00:00 IMPRESSION: Compared with September 2017 there is diminished ovoid hypodensity in the right prostate now measures 2.8 cm in greatest dimension, previously 3.7 cm. Otherwise no acute findings. Assessment & Plan - Diagnosis (1) UTI (urinary tract infection) due to urinary indwelling Vazquez catheter Qualifiers: Indwelling urinary catheter type: indwelling urethral catheter Encounter type: sequela Qualified Code(s): T83.511S - Infection and inflammatory reaction due to indwelling urethral catheter, sequela; N39.0 - Urinary tract infection, site not specified; N39.0 - Urinary tract infection, site not specified Is this a current diagnosis for this admission?: Yes Plan: He grew higher than 100,000 colonies of Proteus mirabilis. Continue Ceftin (2) Bullous dermatitis Is this a current diagnosis for this admission?: Yes Plan: Continue doxycycline. Discontinue IV steroids due to elevated blood sugar (3) Acute encephalopathy Is this a current diagnosis for this admission?: Yes Plan: This whole thing about encephalopathy is difficult to access since patient aphasic. He has been slightly more awake over the course of [address] of the abdomen and pelvis noted (4) Anemia of chronic disease Is this a current diagnosis for this admission?: Yes Plan: Stable (5) Diabetes 1.5, managed as type 2 Is this a current diagnosis for this admission?: Yes Plan: Continue current regimen (6) Hypertension Qualifiers: Hypertension type: essential hypertension Qualified Code(s): I10 - Essential (primary) hypertension Is this a current diagnosis for this admission?: Yes Plan: Continue outpatient regimen (7) History of stroke Is this a current diagnosis for this admission?: Yes Plan: Supportive (8) Hypernatremia Is this a current diagnosis for this admission?: Yes Plan: Continue free water through PEG and trend (9) Hypokalemia Is this a current diagnosis for this admission?: Yes Plan: Replace through PEG and trend (10) Prostate mass Is this a current diagnosis for this admission?: Yes Plan: Noted improvement in size - Time Time Spent with patient: 15-24 minutes Medications reviewed and adjusted accordingly: Yes Anticipated discharge: SNF Within: within 48 hours - Inpatient Certification Based on my medical assessment, after consideration of the patient's comorbidities, presenting symptoms, or acuity I expect that the services needed warrant INPATIENT care.: Yes I certify that my determination is in accordance with my understanding of Medicare's requirements for reasonable and necessary INPATIENT services [42 CFR 412.3e].: Yes Medical Necessity: Need Close Monitoring Due to Risk of Patient Decompensation
[2017-12-06] MEDS: INSULIN LISPRO 100 UNIT/ML 3 ML VIAL SUBCUT PRN (00:22)
[2017-12-06 05:43] LABS: ABSOLUTE BASOPHILS # (AUTO) 0.1 10^3/uL (0.0-0.2); ABSOLUTE EOSINOPHILS # (AUTO) 1.2 10^3/uL (0.0-0.6); ABSOLUTE LYMPHOCYTES (AUTO) 1.4 10^3/uL (0.5-4.7); ABSOLUTE MONOCYTES (AUTO) 0.5 10^3/uL (0.1-1.4); ABSOLUTE NEUT (AUTO) 6.2 10^3/uL (1.7-8.2); BASOPHILS % (AUTO) 0.6 % (0-2); EOSINOPHILS % (AUTO) 12.7 % (0-6); HEMATOCRIT 33.8 % (37.9-51.0); HEMOGLOBIN 11.3 g/dL (13.5-17.0); LYMPHOCYTES % (AUTO) 14.9 % (13-45); MEAN CORPUSCULAR HEMOGLOBIN 29.7 pg (27.0-33.4); MEAN CORPUSCULAR HGB CONC 33.4 g/dL (32.0-36.0); MEAN CORPUSCULAR VOLUME 89 fl (80-97); MONOCYTES % (AUTO) 5.5 % (3-13); PLATELET COUNT 229 10^3/uL (150-450); RED CELL DISTRIBUTION WIDTH 16.3 % (11.5-14.0); SEGMENTED NEUTROPHILS % (AUTO) 66.3 % (42-78); TOTAL CELLS COUNTED % (AUTO) 100 %; WHITE BLOOD COUNT 9.3 10^3/uL (4.0-10.5)
[2017-12-06] MEDS: LANSOPRAZOLE 30 MG TAB.RAP.DR PO SCH (05:54)
[2017-12-06 06:10] LABS: ANION GAP 11 (5-19); BLOOD UREA NITROGEN 22 mg/dL (7-20); CALCIUM 9.4 mg/dL (8.4-10.2); CARBON DIOXIDE 29 mmol/L (22-30); CHLORIDE 111 mmol/L (98-107); GLUCOSE 131 mg/dL (75-110); POTASSIUM 4.7 mmol/L (3.6-5.0); SODIUM 150.5 mmol/L (137-145)
[2017-12-06] MEDS: ALBUTEROL SULFATE 0.083% NEB 2.5 MG/3 ML AMPUL NEB SCH ×3 (08:12→20:02)
[2017-12-06] MEDS: CEFUROXIME 500 MG TABLET PO SCH ×2 (10:52→21:05)
[2017-12-06] MEDS: DOXYCYCLINE HYCLATE 100 MG TABLET PO SCH ×2 (10:52→21:02)
[2017-12-06] MEDS: INSULIN DETEMIR 100 UNIT/ML 3 ML PEN SUBCUT SCH ×2 (10:52→21:14)
[2017-12-06] MEDS: ENOXAPARIN SODIUM INJ 40 MG/0.4 ML DISP.SYRIN SUBCUT SCH (10:52)
[2017-12-06] MEDS ORDERED: RINGERS SOLUTION,LACTATED 1,000 ML IV PRN (13:52)
[2017-12-06] MEDS ORDERED: (PENDING PHARMACY ID) (Levetiracetam [Keppra] 750 MG) GT SCH (14:00)
--- NOTE | 2017-12-06 15:55 | PDOC PROGRESS REPORT ---
Subjective Progress Note for:: 12/06/17 Subjective:: 76 yr old gentleman who is aphasic and bed bound at baseline due to prior CVA. Past medical history includes Prior stroke Chronic Vazquez catheter Hypertension Hyperlipidemia Diabetes Coronary artery disease COPD PEG tube Gastroesophageal reflux disease Dementia Depression Seizures Enterococcus faecalis prostate abscess Echocardiogram in October 2016 showed mild to moderate diastolic dysfunction, preserved LV ejection fraction Stage 2 sacral decubitus ulcer- 2 cm- chronic The patient resides at [facility] and presented to the emergency room on December 01 with complaints of Vazquez catheter leakage and erythema on his thigh. Initial blood work revealed leukocytosis and urinary tract infection. He was started on Cefepime. He is aphasic and non verbal at baseline. Reason For Visit: COMPLICATED UTI Physical Exam Vital Signs: Temp Pulse Resp BP Pulse Ox 97.8 F 68 13 168/83 H 96 12/06/17 11:40 12/06/17 11:40 12/06/17 11:40 12/06/17 11:40 12/06/17 11:40 Intake & Output 12/05/17 12/06/17 12/07/17 06:59 06:59 06:59 Intake Total 2283 1634 Output Total 925 1270 Balance 1358 364 Weight 84.5 kg 84.2 kg General appearance: PRESENT: no acute distress Head exam: PRESENT: atraumatic Eye exam: ABSENT: scleral icterus Ear exam: PRESENT: normal external ear exam Neck exam: ABSENT: tracheal deviation Respiratory exam: PRESENT: symmetrical, unlabored Cardiovascular exam: PRESENT: RRR GI/Abdominal exam: PRESENT: soft, other - PEG tube present. ABSENT: tenderness Rectal exam: PRESENT: deferred Gentrourinary exam: PRESENT: indwelling catheter Extremities exam: ABSENT: calf tenderness, pedal edema Musculoskeletal exam: PRESENT: other - He has b/l upper extremity contractures Neurological exam: PRESENT: aphasic Psychiatric exam: PRESENT: other - unable to assess- aphasic Skin exam: PRESENT: other - stage 2 sacral edcubitus ulcer- chronic Results Laboratory Results: 12/06/17 04:57 12/06/17 04:59 12/06/17 12/06/17 04:57 04:59 WBC 9.3 RBC 3.80 L Hgb 11.3 L Hct 33.8 L MCV 89 MCH 29.7 MCHC 33.4 RDW 16.3 H Plt Count 229 Seg Neutrophils % 66.3 Lymphocytes % 14.9 Monocytes % 5.5 Eosinophils % 12.7 H Basophils % 0.6 Absolute Neutrophils 6.2 Absolute Lymphocytes 1.4 Absolute Monocytes 0.5 Absolute Eosinophils 1.2 H Absolute Basophils 0.1 Sodium 150.5 H Potassium 4.7 Chloride 111 H Carbon Dioxide 29 Anion Gap 11 BUN 22 H Creatinine 0.59 Est GFR ( Amer) > 60 Est GFR (Non-Af Amer) > 60 Glucose 131 H Calcium 9.4 Magnesium 2.2 Impressions: Chest X-Ray 12/01/17 13:48 IMPRESSION: NO ACUTE RADIOGRAPHIC FINDING IN THE CHEST. Limited or Localized CT 12/01/17 13:48 IMPRESSION: No CT findings to explain history of flank pain. Abdomen/Pelvis CT 12/04/17 00:00 IMPRESSION: Compared with September 2017 there is diminished ovoid hypodensity in the right prostate now measures 2.8 cm in greatest dimension, previously 3.7 cm. Otherwise no acute findings. Assessment & Plan - Diagnosis (1) UTI (urinary tract infection) due to urinary indwelling Vazquez catheter Qualifiers: Indwelling urinary catheter type: indwelling urethral catheter Encounter type: sequela Qualified Code(s): T83.511S - Infection and inflammatory reaction due to indwelling urethral catheter, sequela; N39.0 - Urinary tract infection, site not specified; N39.0 - Urinary tract infection, site not specified Is this a current diagnosis for this admission?: Yes Plan: Due to Proteus Now on Ceftin (2) Bullous dermatitis Is this a current diagnosis for this admission?: Yes Plan: Complete a course of Doxycycline. Steroids stopped. (3) COPD (chronic obstructive pulmonary disease) Qualifiers: Chronic bronchitis type: unspecified Is this a current diagnosis for this admission?: Yes Plan: Stable Continue inhalers (4) Complicated urinary tract infection Is this a current diagnosis for this admission?: Yes Plan: On antibiotics (5) Diabetes 1.5, managed as type 2 Is this a current diagnosis for this admission?: Yes Plan: Lantus and aspart (6) Hypernatremia Is this a current diagnosis for this admission?: Yes Plan: Slow IV fluids for dehydration. Monitor sodium levels (7) Hypertension Qualifiers: Hypertension type: essential hypertension Qualified Code(s): I10 - Essential (primary) hypertension Is this a current diagnosis for this admission?: Yes Plan: BP running high Home dose Metoprolol restarted. Restart Isosorbide dinitrate (8) Hypokalemia Is this a current diagnosis for this admission?: Yes Plan: replaced (9) DVT prophylaxis Is this a current diagnosis for this admission?: Yes Plan: S/C Lovenox (10) Dementia Qualifiers: Dementia type: unspecified type Dementia behavioral disturbance: without behavioral disturbance Qualified Code(s): F03.90 - Unspecified dementia without behavioral disturbance Is this a current diagnosis for this admission?: Yes Plan: stable (11) History of stroke Is this a current diagnosis for this admission?: Yes Plan: Stable, fall precautions (12) Epilepsy Is this a current diagnosis for this admission?: Yes Plan: Continue Keppra (13) Dysphagia Is this a current diagnosis for this admission?: Yes Plan: has a PEG tube. (14) HX of abscess Is this a current diagnosis for this admission?: No Plan: Prostate abscess in 2017 - Time Time Spent with patient: 35 or more minutes
[2017-12-06] MEDS: METOPROLOL TARTRATE 25 MG TABLET GT SCH (21:02)
[2017-12-06] MEDS: LACTOBACILLUS ACIDOPHILUS 250 MG TAB PEG SCH (21:03)
[2017-12-06] MEDS: ISOSORBIDE DINITRATE 20 MG TABLET GT SCH (21:04)
[2017-12-06] MEDS: LEVETIRACETAM ORAL SOLN 500 MG/5 ML UDCUP GT SCH (21:04)
[2017-12-06] MEDS: NYSTATIN TOPICAL POWDER 15 GM TOP SCH (21:05)
[2017-12-07] MEDS: ISOSORBIDE DINITRATE 20 MG TABLET GT SCH ×3 (03:20→18:25)
[2017-12-07] MEDS: LANSOPRAZOLE 30 MG TAB.RAP.DR PO SCH (05:46)
[2017-12-07] MEDS: METOPROLOL TARTRATE 25 MG TABLET GT SCH ×2 (05:46→18:20)
[2017-12-07] MEDS: LEVETIRACETAM ORAL SOLN 500 MG/5 ML UDCUP GT SCH ×2 (05:46→18:22)
[2017-12-07] MEDS: INSULIN LISPRO 100 UNIT/ML 3 ML VIAL SUBCUT PRN (06:17)
[2017-12-07 06:36] LABS: ANION GAP 7 (5-19); BLOOD UREA NITROGEN 20 mg/dL (7-20); CALCIUM 9.1 mg/dL (8.4-10.2); CARBON DIOXIDE 29 mmol/L (22-30); CHLORIDE 106 mmol/L (98-107); GLUCOSE 148 mg/dL (75-110); POTASSIUM 4.7 mmol/L (3.6-5.0); SODIUM 141.7 mmol/L (137-145)
[2017-12-07] MEDS: ALBUTEROL SULFATE 0.083% NEB 2.5 MG/3 ML AMPUL NEB SCH ×3 (07:36→20:13)
[2017-12-07] MEDS ORDERED: MULTIVITAMIN TABLET PO SCH (10:00)
[2017-12-07] MEDS ORDERED: CRANBERRY FRUIT EXTRACT 500 MG GT SCH (10:00)
[2017-12-07] MEDS: DOXYCYCLINE HYCLATE 100 MG TABLET PO SCH ×2 (11:06→22:26)
[2017-12-07] MEDS: ASCORBIC ACID 500 MG TABLET GT SCH (11:07)
[2017-12-07] MEDS: CEFUROXIME 500 MG TABLET PO SCH ×2 (11:08→18:24)
[2017-12-07] MEDS: LACTOBACILLUS ACIDOPHILUS 250 MG TAB PEG SCH ×2 (11:08→18:20)
[2017-12-07] MEDS: MULTIVITAMIN ORAL LIQUID 60 ML GT SCH (11:10)
[2017-12-07] MEDS: NYSTATIN TOPICAL POWDER 15 GM TOP SCH ×2 (11:11→18:21)
[2017-12-07] MEDS: ENOXAPARIN SODIUM INJ 40 MG/0.4 ML DISP.SYRIN SUBCUT SCH (11:13)
[2017-12-07] MEDS: INSULIN DETEMIR 100 UNIT/ML 3 ML PEN SUBCUT SCH (11:14)
--- NOTE | 2017-12-07 12:57 | PDOC PROGRESS REPORT ---
Subjective Progress Note for:: 12/07/17 Subjective:: 76 yr old gentleman with dysphagia, aphasia and bed bound at baseline due to prior CVA. Past medical history includes Prior stroke Chronic Vazquez catheter Hypertension Hyperlipidemia Diabetes Coronary artery disease COPD PEG tube Gastroesophageal reflux disease Dementia Depression Seizures Enterococcus faecalis prostate abscess Echocardiogram in October 2016 showed mild to moderate diastolic dysfunction, preserved LV ejection fraction Stage 2 sacral decubitus ulcer- 2 cm- chronic Chronic Vazquez Catheter He resides at [facility] and presented to the emergency room on December 01 with leukocytosis and urinary tract infection. He was started on Cefepime. He also had dehydration and hypernatremia which is improving with IV fluids. Today is day 7 of 10 of antibiotics Reason For Visit: COMPLICATED UTI Physical Exam Vital Signs: Temp Pulse Resp BP Pulse Ox 97.5 F 74 22 H 135/79 H 97 12/07/17 12:07 12/07/17 12:07 12/07/17 12:07 12/07/17 12:07 12/07/17 12:07 Intake & Output 12/06/17 12/07/17 12/08/17 06:59 06:59 06:59 Intake Total 1634 2361 260 Output Total 1270 1250 Balance 364 1111 260 Weight 84.2 kg 88.9 kg General appearance: PRESENT: no acute distress Head exam: PRESENT: normocephalic Eye exam: ABSENT: scleral icterus Neck exam: ABSENT: tracheal deviation Respiratory exam: PRESENT: symmetrical. ABSENT: accessory muscle use, crackles , retraction Cardiovascular exam: PRESENT: RRR GI/Abdominal exam: PRESENT: normal bowel sounds, soft, other - PEG present. ABSENT: tenderness Rectal exam: PRESENT: deferred Gentrourinary exam: PRESENT: indwelling catheter Extremities exam: ABSENT: calf tenderness, pedal edema Musculoskeletal exam: ABSENT: tenderness Neurological exam: PRESENT: aphasic Psychiatric exam: PRESENT: other - unable to asses patient aphasic Skin exam: PRESENT: other - sacral decubitus 2 cm, stage II Results Laboratory Results: 12/06/17 04:57 12/07/17 05:15 12/07/17 05:15 Sodium 141.7 Potassium 4.7 Chloride 106 Carbon Dioxide 29 Anion Gap 7 BUN 20 Creatinine 0.71 Est GFR ( Amer) > 60 Est GFR (Non-Af Amer) > 60 Glucose 148 H Calcium 9.1 12/01/17 22:07 Blood Blood Culture - Final NO GROWTH IN 5 DAYS 12/01/17 20:50 Blood Blood Culture - Final NO GROWTH IN 5 DAYS Impressions: Chest X-Ray 12/01/17 13:48 IMPRESSION: NO ACUTE RADIOGRAPHIC FINDING IN THE CHEST. Limited or Localized CT 12/01/17 13:48 IMPRESSION: No CT findings to explain history of flank pain. Abdomen/Pelvis CT 12/04/17 00:00 IMPRESSION: Compared with September 2017 there is diminished ovoid hypodensity in the right prostate now measures 2.8 cm in greatest dimension, previously 3.7 cm. Otherwise no acute findings. Assessment & Plan - Diagnosis (1) UTI (urinary tract infection) due to urinary indwelling Vazquez catheter Qualifiers: Indwelling urinary catheter type: indwelling urethral catheter Encounter type: sequela Qualified Code(s): T83.511S - Infection and inflammatory reaction due to indwelling urethral catheter, sequela; N39.0 - Urinary tract infection, site not specified; N39.0 - Urinary tract infection, site not specified Is this a current diagnosis for this admission?: Yes Plan: Due to Proteus, day 7 of 10 Ceftin (2) Bullous dermatitis Is this a current diagnosis for this admission?: Yes Plan: Complete a course of Doxycycline. Steroids stopped. (3) COPD (chronic obstructive pulmonary disease) Qualifiers: Chronic bronchitis type: unspecified Is this a current diagnosis for this admission?: Yes Plan: Stable Continue inhalers (4) Complicated urinary tract infection Is this a current diagnosis for this admission?: Yes Plan: On antibiotics (5) Diabetes 1.5, managed as type 2 Is this a current diagnosis for this admission?: Yes Plan: Lantus and aspart (6) Hypernatremia Is this a current diagnosis for this admission?: Yes Plan: PEG tube free water flushes and gentle IV fluids for dehydration. Improving sodium levels (7) Hypertension Qualifiers: Hypertension type: essential hypertension Qualified Code(s): I10 - Essential (primary) hypertension Is this a current diagnosis for this admission?: Yes Plan: BP improving Continue Metoprolol and Isosorbide dinitrate (8) Hypokalemia Is this a current diagnosis for this admission?: Yes Plan: replaced (9) DVT prophylaxis Is this a current diagnosis for this admission?: Yes Plan: S/C Lovenox (10) Dementia Qualifiers: Dementia type: unspecified type Dementia behavioral disturbance: without behavioral disturbance Qualified Code(s): F03.90 - Unspecified dementia without behavioral disturbance Is this a current diagnosis for this admission?: Yes Plan: stable (11) History of stroke Is this a current diagnosis for this admission?: Yes Plan: Stable, fall precautions (12) Epilepsy Is this a current diagnosis for this admission?: Yes Plan: Continue Keppra (13) Dysphagia Is this a current diagnosis for this admission?: Yes Plan: Tube feeds via PEG tube. (14) HX of abscess Is this a current diagnosis for this admission?: No Plan: Prostate abscess in 2017 - Time Time Spent with patient: 25-34 minutes - Plan Summary Plan Summary: Plan to discharge back to SNF is remains stable
[2017-12-08] MEDS: INSULIN DETEMIR 100 UNIT/ML 3 ML PEN SUBCUT SCH ×2 (01:01→10:14)
[2017-12-08] MEDS: ISOSORBIDE DINITRATE 20 MG TABLET GT SCH ×2 (02:26→10:31)
[2017-12-08] MEDS: LEVETIRACETAM ORAL SOLN 500 MG/5 ML UDCUP GT SCH (05:07)
[2017-12-08] MEDS: METOPROLOL TARTRATE 25 MG TABLET GT SCH (05:07)
[2017-12-08] MEDS: LANSOPRAZOLE 30 MG TAB.RAP.DR PO SCH (05:07)
[2017-12-08 06:40] LABS: ANION GAP 11 (5-19); BLOOD UREA NITROGEN 22 mg/dL (7-20); CALCIUM 9.3 mg/dL (8.4-10.2); CARBON DIOXIDE 27 mmol/L (22-30); CHLORIDE 105 mmol/L (98-107); GLUCOSE 99 mg/dL (75-110); PHOSPHORUS 3.8 mg/dL (2.5-4.5); POTASSIUM 4.9 mmol/L (3.6-5.0)
[2017-12-08] MEDS: ALBUTEROL SULFATE 0.083% NEB 2.5 MG/3 ML AMPUL NEB SCH ×2 (08:36→13:47)
--- NOTE | 2017-12-08 10:11 | PDOC TRANSFER SUMMARY ---
General - Admit/Disc Date/PCP Admission Date/Primary Care Provider: 12/01/17 18:44 KATIE KOROMA, Discharge Date: 12/08/17 - Discharge Diagnosis (1) UTI (urinary tract infection) due to urinary indwelling Vazquez catheter Is this a current diagnosis for this admission?: Yes (2) Bullous dermatitis Is this a current diagnosis for this admission?: Yes (3) COPD (chronic obstructive pulmonary disease) Is this a current diagnosis for this admission?: Yes (4) Complicated urinary tract infection Is this a current diagnosis for this admission?: Yes (5) Diabetes 1.5, managed as type 2 Is this a current diagnosis for this admission?: Yes (6) Hypernatremia Is this a current diagnosis for this admission?: Yes (7) Hypertension Is this a current diagnosis for this admission?: Yes (8) Hypokalemia Is this a current diagnosis for this admission?: Yes (9) DVT prophylaxis Is this a current diagnosis for this admission?: Yes (10) Dementia Is this a current diagnosis for this admission?: Yes (11) History of stroke Is this a current diagnosis for this admission?: Yes (12) Epilepsy Is this a current diagnosis for this admission?: Yes (13) Dysphagia Is this a current diagnosis for this admission?: Yes (14) HX of abscess Is this a current diagnosis for this admission?: No - Additional Information Resuscitation Status: Full Code Prescriptions: Cefuroxime Axetil [Ceftin 500 mg Tablet] 500 mg PEG BID 2 Days #4 tablet Home Medications: Ascorbic Acid [Vitamin C 500 mg Tablet] 500 mg GT DAILY 12/01/17 Cranberry Fruit Extract [Cranberry 500 mg Capsule] 500 mg GT DAILY 12/01/17 Famotidine [Pepcid 20 mg Tablet] 20 mg GT BID 12/01/17 Isosorbide Dinitrate [Isordil Titradose 20 mg Tablet] 20 mg GT Q8 12/01/17 Levetiracetam [Keppra] 750 mg GT Q12 12/01/17 Metoprolol Tartrate [Lopressor 25 mg Tablet] 25 mg GT Q12 12/01/17 Multivitamin [Tab-A-Db (Multiple Vitamin) Tablet] 1 tab PO DAILY 12/01/17 Nystatin [Mycostatin Topical Powder 15 gm] 1 applic TOP BID 12/01/17 Zinc Sulfate [Zinc-220 Capsule] 220 mg GT DAILY 12/01/17 Cefuroxime Axetil [Ceftin 500 mg Tablet] 500 mg PEG BID 2 Days #4 tablet Dextrose 50%-Water [Dextrose Inj 50% Syringe (25 gm/50 ml)] 25 gm IV PRN PRN disp.syrin 12/08/17 Glucagon,Human Recombinant [Glucagen Inj 1 mg Vial] 1 mg IM PRN PRN vial Insulin Detemir [Levemir Insulin 100 units/mL] 30 unit SUBCUT Q12 insuln.pen Insulin Lispro [Humalog Insulin (Lispro) 100 unit/mL] 0 - 12 unit SUBCUT Q6HP PRN unit 12/08/17 Ipratropium/Albuterol Sulfate [Duoneb 3 ml Ampul] 3 ml NEB RTQ6HP PRN vial.neb 12/08/17 Lactobacillus Acidophilus [Bacid 250 mg Tablet] 500 mg PEG BID tab 12/08/17 History of Present Illness Admission Date/PCP: 12/01/17 18:44 KATIE KOROMA DO History of Present Illness: 76 yr old gentleman with dysphagia, aphasia and bed bound at baseline due to prior CVA. Past medical history includes Prior stroke Chronic Vazquez catheter Hypertension Hyperlipidemia Diabetes Coronary artery disease COPD PEG tube Gastroesophageal reflux disease Dementia Depression Seizures Enterococcus faecalis prostate abscess Echocardiogram in October 2016 showed mild to moderate diastolic dysfunction, preserved LV ejection fraction Stage 2 sacral decubitus ulcer- 2 cm- chronic Chronic Vazquez Catheter He resides at [facility] and presented to the emergency room on December 01 with leukocytosis and urinary tract infection. He was started on Cefepime. He also had dehydration and hypernatremia which is improving with IV fluids. Today is day 8 of 10 of Ceftin Hypernatremia resolved with IV fluids and free water flushes. Physical Exam Vital Signs: Temp Pulse Resp BP Pulse Ox 97.5 F 64 20 148/68 H 96 12/08/17 07:08 12/08/17 07:08 12/08/17 07:08 12/08/17 07:08 12/08/17 07:08 Intake & Output 12/07/17 12/08/17 12/09/17 06:59 06:59 06:59 Intake Total 2361 3464 Output Total 1250 2750 Balance 1111 714 Weight 88.9 kg 92.5 kg Respiratory exam: PRESENT: symmetrical, unlabored GI/Abdominal exam: PRESENT: soft. ABSENT: tenderness Results Laboratory Results: 12/06/17 04:57 12/08/17 04:43 12/08/17 04:43 Sodium 143.0 Potassium 4.9 Chloride 105 Carbon Dioxide 27 Anion Gap 11 BUN 22 H Creatinine 0.62 Est GFR ( Amer) > 60 Est GFR (Non-Af Amer) > 60 Glucose 99 Calcium 9.3 Phosphorus 3.8 Magnesium 2.0 Impressions: Chest X-Ray 12/01/17 13:48 IMPRESSION: NO ACUTE RADIOGRAPHIC FINDING IN THE CHEST. Limited or Localized CT 12/01/17 13:48 IMPRESSION: No CT findings to explain history of flank pain. Abdomen/Pelvis CT 12/04/17 00:00 IMPRESSION: Compared with September 2017 there is diminished ovoid hypodensity in the right prostate now measures 2.8 cm in greatest dimension, previously 3.7 cm. Otherwise no acute findings. Transfer Plan - Time Spent with Patient Time spent with patient: Greater than 30 Minutes Qualifiers - * PATEINT BEING DISCHARGED WITH ANY OF THE FOLLOWING DIAGNOSIS?: No
[2017-12-08] MEDS: CEFUROXIME 500 MG TABLET PO SCH (10:13)
[2017-12-08] MEDS: LACTOBACILLUS ACIDOPHILUS 250 MG TAB PEG SCH (10:13)
[2017-12-08] MEDS: MULTIVITAMIN ORAL LIQUID 60 ML GT SCH (10:13)
[2017-12-08] MEDS: ENOXAPARIN SODIUM INJ 40 MG/0.4 ML DISP.SYRIN SUBCUT SCH (10:13)
[2017-12-08] MEDS: DOXYCYCLINE HYCLATE 100 MG TABLET PO SCH (10:13)
[2017-12-08] MEDS: ASCORBIC ACID 500 MG TABLET GT SCH (10:13)
[2017-12-08] MEDS: NYSTATIN TOPICAL POWDER 15 GM TOP SCH (10:13)
[2017-12-08 12:21] VITALS: BP 146/79
== END 2017-12-08 14:36 | DRG 922 ==
LOC: ER 13:18 → UNDOADMIN 18:44 → EH 18:44 → 3N 23:30 → 4W 12-06 01:21
PROVIDERS: ADMIT Family Medicine; ATTEND Family Medicine
DX: T83.511S Infection and inflammatory reaction due to indwelling urethral catheter, sequela (principal); G93.40 Encephalopathy, unspecified; N39.0 Urinary tract infection, site not specified; E87.0 Hyperosmolality and hypernatremia; R30.0 Dysuria; E78.00 Pure hypercholesterolemia, unspecified; I10 Essential (primary) hypertension; K21.9 Gastro-esophageal reflux disease without esophagitis; E10.9 Type 1 diabetes mellitus without complications; G40.909 Epilepsy, unspecified, not intractable, without status epilepticus; D72.829 Elevated white blood cell count, unspecified; L13.9 Bullous disorder, unspecified; D63.8 Anemia in other chronic diseases classified elsewhere; L89.152 Pressure ulcer of sacral region, stage 2; E86.0 Dehydration; B96.4 Proteus (mirabilis) (morganii) as the cause of diseases classified elsewhere; J44.9 Chronic obstructive pulmonary disease, unspecified; N40.0 Benign prostatic hyperplasia without lower urinary tract symptoms; F03.90 Unspecified dementia, unspecified severity, without behavioral disturbance, psychotic disturbance, mood disturbance, and anxiety; I69.920 Aphasia following unspecified cerebrovascular disease; I25.2 Old myocardial infarction; Z93.1 Gastrostomy status; Z74.01 Bed confinement status; Z79.4 Long term (current) use of insulin; Z79.899 Other long term (current) drug therapy; E87.6 Hypokalemia
CPT/HCPCS: 36415; 71045; 74177; 76380; 80048; 80053; 81001; 82962; 83735; 84100; 85025; 87040; 87086; 87088; 87186; 93005; 93010; 94640; 96365; 99285; J0692; J0744; J1650; J1815; J2543; J2920; J3490; J7120

== ENCOUNTER 2018-02-05 08:08 | Emergency (ER) | payer MEDICARE, OTHER ==
[2018-02-05] MEDS ORDERED: LIDOCAINE 2% URO-JET 5 ML KIT MM ONE ×3 (08:25→13:47)
--- NOTE | 2018-02-05 08:28 | ER Document Report ---
HPI - HPI Patient complains to provider of: Vazquez catheter problem Onset: This morning Onset/Duration: Sudden Pain Level: Denies Context: Patient has a history of BPH and requires a permanent indwelling Vazquez catheter. Patient is a resident of [facility] and staff were attempting to replace his current Vazquez. They removed a 16 Cypriot Vazquez but was unable to reinsert a new catheter. Patient has not had a fever or any findings concerning for UTI. long term staff deny any other problems other than inability to insert Vazquez catheter. Associated Symptoms: denies: Nonproductive cough, Fever, Vomiting Exacerbated by: Denies Relieved by: Denies Similar symptoms previously: No Recently seen / treated by doctor: No - ROS ROS below otherwise negative: Yes Systems Reviewed and Negative: Yes All other systems reviewed and negative - CONSTITUTIONAL Constitutional: DENIES: Fever - CARDIOVASCULAR Cardiovascular: DENIES: Chest pain - RESPIRATORY Respiratory: DENIES: Coughing - GASTROINTESTINAL Gastrointestinal: DENIES: Abdominal Pain, Patient vomiting - URINARY Urinary: DENIES: Dysuria - REPRODUCTIVE Reproductive: DENIES: : - MUSCULOSKELETAL Musculoskeletal: DENIES: Back Pain - DERM Skin Color: Normal Skin Problems: Healing Stage II Past Medical History - General Information source: Relative, Transfer Record, Outside Facility Records Cannot obtain history due to: Dementia - Social History Smoking Status: Never Smoker Frequency of alcohol use: None Drug Abuse: None Lives with: Shelter Family History: None, Other - Past Medical History Cardiac Medical History: Reports: Hx Heart Attack, Hx Hypercholesterolemia, Hx Hypertension Pulmonary Medical History: Reports: Hx COPD, Hx Pneumonia Neurological Medical History: Reports: Hx Cerebrovascular Accident - CVA in 2013 , History of subarachnoid hemorrhage in 2016, Hx Seizures Endocrine Medical History: Reports: Hx Diabetes Mellitus Type 1, Hx Diabetes Mellitus Type 2. Denies: Hx Hyperthyroidism, Hx Hypothyroidism Renal/ Medical History: Reports: Hx Benign Prostatic Hyperplasia. Denies: Hx Peritoneal Dialysis GI Medical History: Reports: Hx Gastroesophageal Reflux Disease - PEG tube post CVA. Denies: Hx Cirrhosis, Hx Hepatitis Musculoskeltal Medical History: Reports Hx Muscle Weakness Psychiatric Medical History: Reports: Hx Dementia, Hx Depression Infectious Medical History: Denies: Hx Hepatitis Past Surgical History: Reports: Hx Abdominal Surgery - Feeding gastrostomy tube , Hx Orthopedic Surgery - Right knee surgery. Titanium jelani, left femur after accident., Other - PEG tube placed - Immunizations Hx Diphtheria, Pertussis, Tetanus Vaccination: Yes Hx Pneumococcal Vaccination: 05/25/14 Vertical Provider Document - CONSTITUTIONAL Agree With Documented VS: Yes Exam Limitations: Physical Impairment, Other - Dementia General Appearance: WD/WN - INFECTION CONTROL TRAVEL OUTSIDE OF THE [place] IN LAST 30 DAYS: No - HEENT HEENT: Atraumatic, Normocephalic - NECK Neck: Normal Inspection - RESPIRATORY Respiratory: Breath Sounds Normal, No Respiratory Distress - CARDIOVASCULAR Cardiovascular: Regular Rate, Regular Rhythm - GI/ABDOMEN Gastrointestinal: Abdomen Soft, Abdomen Non-Tender, No Organomegaly, Normal Bowel Sounds - BACK Back: Abnormal Inspection - Sacral decubitus stage II - MUSCULOSKELETAL/EXTREMETIES Notes: Contractures to bilateral upper extremities - NEURO Level of Consciousness: Awake, Alert - DERM Integumentary: Warm Course - Re-evaluation Re-evalutation: 02/05/18 08:27 Spoke with nursing staff at [facility] states that 2 staff members were unable to reinsert patient's Vazquez catheter at his 3:00 a.m. scheduled Vazquez change. Staff states patient has a history of BPH. 02/05/18 09:00 Unsuccessful attempt with 10,12 Cypriot catheter, awaiting smaller catheter from storeroom. 02/05/18 13:08 Staff unsuccessful with attempts at larger Vazquez catheter insertion. 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 Provider called [facility] who states that Dr. Hendrix is actually in the hospital, call placed in message left with Dr. Hendrix to return phone call. Dr. Hendrix currently in a procedure at this time. 02/05/18 14:07 Dr Enamorado to floor to evaluate pt. 02/05/18 14:25 Catheter placed per urologist, patient with yellow clear urine to Vazquez bag. - Vital Signs Vital signs: Temp Pulse Resp BP Pulse Ox 98.5 F 88 20 125/84 97 02/05/18 08:16 02/05/18 08:16 02/05/18 08:16 02/05/18 08:16 02/05/18 08:16 Discharge - Discharge Clinical Impression: BPH (benign prostatic hyperplasia) Qualifiers: Lower urinary tract symptom presence: unspecified whether lower urinary tract symptoms present Qualified Code(s): N40.0 - Benign prostatic hyperplasia without lower urinary tract symptoms Vazquez catheter problem Qualifiers: Encounter type: initial encounter Qualified Code(s): T83.9XXA - Unspecified complication of genitourinary prosthetic device, implant and graft, initial encounter Condition: Stable Disposition: SNF-Other Instructions: Vazquez Catheter Care ([facility]) Additional Instructions: Return immediately for any new or worsening symptoms Follow-up with urology for a recheck, call tomorrow for an appointment Referrals: KATIE KOROMA DO [Primary Care Provider] - Follow up as needed [facility] [Provider Group] - Follow up as needed ANJELICA HENDRIX MD [[facility]] - Follow up as needed
[2018-02-05] MEDS ORDERED: LEVETIRACETAM ORAL SOLN 500 MG/5 ML UDCUP PO ONE (12:52)
[2018-02-05] MEDS ORDERED: METOPROLOL TARTRATE 25 MG TABLET PEG ONE (12:53)
[2018-02-05] MEDS ORDERED: ISOSORBIDE DINITRATE 20 MG TABLET PEG ONE (12:53)
[2018-02-05 14:45] VITALS: BP 108/74
--- NOTE | 2018-02-05 17:10 | OPERATIVE REPORT E ---
Operative Report NAME: THAD CORREIA : 1940 AGE: 77Y DATE OF SURGERY: 02/05/2018 ROOM: INDICATIONS: The ER provider asked me to see Mr. Correia, who is one of our patients. He has had a Rios catheter since 2016 following a stroke. He has had routine catheter changes, but today the residential could not change the catheter and the ER physician could not either. I was asked to assist. SURGEON: ANJELICA BARDALES M.D. PROCEDURE: After the patient was identified and the procedure was confirmed, he was prepped and draped in the routine sterile manner. I attempted to pass a 16-Greenlandic Coud catheter after instilling lidocaine jelly in the urethra. This did not pass. I then inserted a catheter guide in the lumen of the coude' catheter and was able to pass the rios into the bladder. I obtained good urine return. PLAN: He should have a repeat catheter inserted in one month. He has not had problems in the past, so I predict that the catheter will go in without difficulty once the swelling goes down. If he catheter placements continue to be difficult, I recommend considering a suprapubic tube since he will need [facility] catheter drainage. DICTATING PHYSICIAN: ANJELICA BARDALES M.D. [id number] PHY#: [id number] ID: [id number] JOB#: [id number] ACCT: [id number] cc:ANJELICA BARDALES M.D. > MTDD
== END 2018-02-05 15:10 ==
LOC: ER 08:08
DX: N40.0 Benign prostatic hyperplasia without lower urinary tract symptoms (principal); T83.9XXA Unspecified complication of genitourinary prosthetic device, implant and graft, initial encounter; I25.2 Old myocardial infarction; E78.00 Pure hypercholesterolemia, unspecified; I10 Essential (primary) hypertension; J44.9 Chronic obstructive pulmonary disease, unspecified; Z86.73 Personal history of transient ischemic attack (TIA), and cerebral infarction without residual deficits; E11.9 Type 2 diabetes mellitus without complications; F03.90 Unspecified dementia, unspecified severity, without behavioral disturbance, psychotic disturbance, mood disturbance, and anxiety
CPT/HCPCS: 99285; 51702; J3490; A9270 ×2

== ENCOUNTER → 2018-02-27 | Outpatient (CLI) | payer OTHER ==
--- NOTE | 2018-02-27 12:14 | RADIOLOGY REPORT (SQ) ---
EXAM DESCRIPTION: CT PELVIS WITHOUT COMPLETED DATE/TIME: 02/27/2018 11:48 am REASON FOR STUDY: URINARY TRACT INFECTION, SITE NOT SPECIFIED N39.0 URINARY TRACT INFECTION, SITE N OT SPECIFIED COMPARISON: CT abdomen pelvis 02/18/2017, 04/23/2017, 09/30/2017, 12/01/2017, 12/04/2017 TECHNIQUE: CT scan of the pelvis performed without intravenous or oral contrast. Images reviewed wi th soft tissue and bone windows. Reconstructed coronal and sagittal MPR images reviewed. All images stored on PACS. All CT scanners at this facility use dose modulation, iterative reconstruction, and/or weight based d osing when appropriate to reduce radiation dose to as low as reasonably achievable (ALARA). [facility]: Dose Right [facility]: CareDose [facility]: Dose Right [facility]: Teradose 4D [facility]: Notehall RADIATION DOSE: CT Rad equipment meets quality standard of care and radiation dose reduction techniq ues were employed. CTDIvol: 13.5 mGy. DLP: 498 mGy-cm. mGy. LIMITATIONS: None. FINDINGS: PELVIC BONES: Bony pelvis is osteoporotic. No fracture. Left femoral intramedullary nail is seen at the bottom edge of the field of view VISUALIZED SPINE: Disc space loss of height with 25% anterolisthesis of L4 over L5 PELVIC SOFT TISSUES: Urinary bladder is decompressed by a Vazquez catheter. No bladder stones. Mild e nlargement of the prostate, stable. Rectum unremarkable. No pelvic adenopathy. Atherosclerotic pel josaih arterial vascular calcification. EXTRAPELVIC SOFT TISSUES: No significant findings. OTHER: No other significant finding. IMPRESSION: Vazquez catheter decompresses the bladder. No bladder calculi. Mildly enlarged prostate. TECHNICAL DOCUMENTATION: JOB ID: [id number] Quality ID # [id number]: Final reports with documentation of one or more dose reduction techniques (e.g., Au tomated exposure control, adjustment of the mA and/or kV according to patient size, use of iterative reconstruction technique) 2010 [employer]- All Rights Reserved Reading location - IP/workstation name: [email or web address]
== END ==
LOC: RAD 10:47
PROVIDERS: ATTEND Urology
DX: N39.0 Urinary tract infection, site not specified (principal); N40.0 Benign prostatic hyperplasia without lower urinary tract symptoms
CPT/HCPCS: 72192

== ENCOUNTER 2018-06-16 06:53 | Emergency (ER) | payer OTHER, MEDICARE ==
[2018-06-16] MEDS ORDERED: LIDOCAINE 2% URO-JET 5 ML KIT MM ONE (07:04)
--- NOTE | 2018-06-16 07:07 | ER Document Report ---
ED GI/ - General Stated Complaint: BLOOD IN URINE Time Seen by Provider: 06/16/18 07:03 Notes: This is a 77-year-old male presents from the intermediate for evaluation of blood coming out of the catheter. Patient currently reportedly had a catheter in and somehow it got removed. Patient is nonverbal. Unable to move. Blood coming out of the meatus. No other reports of issues other than hematuria. TRAVEL OUTSIDE OF THE [place] IN LAST 30 DAYS: No - HPI Patient complains to provider of: Vazquez catheter problem, Hematuria Onset: This morning - Related Data Allergies/Adverse Reactions: divalproex sodium [From Depakote] Allergy (Verified 06/16/18 07:54) oxycodone [Oxycodone] Adverse Reaction (Intermediate, Verified 06/16/18 07:54) agitation simvastatin [From Zocor] Adverse Reaction (Unknown, Verified 06/16/18 07:54) dysarthria Past Medical History - General Information source: [facility] Records Cannot obtain history due to: Dementia, Altered mental status - Social History Smoking Status: Unknown if Ever Smoked Frequency of alcohol use: None Drug Abuse: None Lives with: Mcc Family History: None, Other - Past Medical History Cardiac Medical History: Reports: Hx Heart Attack, Hx Hypercholesterolemia, Hx Hypertension Pulmonary Medical History: Reports: Hx COPD, Hx Pneumonia Neurological Medical History: Reports: Hx Cerebrovascular Accident - CVA in 2014 , History of subarachnoid hemorrhage in 2016, Hx Seizures Endocrine Medical History: Reports: Hx Diabetes Mellitus Type 1, Hx Diabetes Mellitus Type 2. Denies: Hx Hyperthyroidism, Hx Hypothyroidism Renal/ Medical History: Reports: Hx Benign Prostatic Hyperplasia. Denies: Hx Peritoneal Dialysis GI Medical History: Reports: Hx Gastroesophageal Reflux Disease - PEG tube post CVA. Denies: Hx Cirrhosis, Hx Hepatitis Musculoskeletal Medical History: Reports Hx Muscle Weakness Psychiatric Medical History: Reports: Hx Dementia, Hx Depression Infectious Medical History: Denies: Hx Hepatitis Past Surgical History: Reports: Hx Abdominal Surgery - Feeding gastrostomy tube , Hx Orthopedic Surgery - Right knee surgery. Titanium jelani, left femur after accident., Other - PEG tube placed - Immunizations Hx Diphtheria, Pertussis, Tetanus Vaccination: Yes Hx Pneumococcal Vaccination: 05/25/14 Review of Systems - Review of Systems -: Yes ROS unobtainable due to patient's medical condition - With significant dementia and nonverbal so review of systems unobtainable. Physical Exam - Vital signs Vitals: Temp Pulse Resp BP Pulse Ox 97.9 F 68 18 166/83 H 94 06/16/18 06:54 06/16/18 06:54 06/16/18 06:54 06/16/18 06:54 06/16/18 06:54 Interpretation: Normal - General General appearance: Appears well, Alert - Respiratory Respiratory status: No respiratory distress Chest status: Nontender Breath sounds: Normal Chest palpation: Normal - Cardiovascular Rhythm: Regular Heart sounds: Normal auscultation Murmur: No - Abdominal Inspection: Normal Distension: No distension Bowel sounds: Normal Tenderness: Nontender Organomegaly: No organomegaly - Genitourinary Inspection: Blood at meatus Tenderness: Nontender Scrotum: Normal - Extremities General upper extremity: Nontender, Edema - Upper extremity contractures, Normal color, Other General lower extremity: Normal inspection, Nontender, Normal color, Normal temperature. No: Rob's sign Course - Re-evaluation Re-evalutation: 06/16/18 08:50 The nurse was unable to get a catheter to go in. I requested a 14 coud catheter. The catheter was easily advanced with no difficulty and no significant resistance. Urine was obtained. No complications. We will leave catheter in place at this time. Nothing further. Patient more than likely had a traumatic Vazquez catheter removal with some urethral trauma. Will advised to keep the catheter in place. Will give follow-up information for a urologist. 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
[2018-06-16 08:54] LABS: APPEARANCE,URINE SLIGHTLY-CLOUDY; BILIRUBIN,URINE NEGATIVE (NEGATIVE); COLOR,URINE YELLOW; GLUCOSE, URINE NEGATIVE (NEGATIVE); KETONES,URINE NEGATIVE (NEGATIVE); LEUKOCYTE ESTERASE,URINE SMALL (NEGATIVE); NITRITE,URINE POSITIVE (NEGATIVE); PROTEIN,URINE NEGATIVE (NEGATIVE); URINE SPECIFIC GRAVITY 1.017; UROBILINOGEN,URINE NEGATIVE mg/dL (<2.0)
[2018-06-16 09:08] VITALS: BP 159/80
== END 2018-06-16 09:24 ==
LOC: ER 06:53
DX: N35.012 Post-traumatic membranous urethral stricture (principal); F03.90 Unspecified dementia, unspecified severity, without behavioral disturbance, psychotic disturbance, mood disturbance, and anxiety; I10 Essential (primary) hypertension; J44.9 Chronic obstructive pulmonary disease, unspecified; E11.9 Type 2 diabetes mellitus without complications; R60.0 Localized edema; Z88.8 Allergy status to other drugs, medicaments and biological substances
CPT/HCPCS: 99284; 51702; 87086; 87088; 81001; 87186; C1758 ×2; J3490

== ENCOUNTER 2018-09-08 19:39 | Emergency (ER) | payer OTHER, MEDICARE ==
--- NOTE | 2018-09-08 19:48 | ER Document Report ---
ED General - General Stated Complaint: COUGH Time Seen by Provider: 09/08/18 19:48 Notes: Patient is a 77-year-old male with history of CVAs resulting in significant def icits including aphasia, and bilateral upper extremity contractions that presents to the emergency department for chief complaint of cough, shortness of breath. Patient's family who is at bedside, states that they were visiting the patient, they are concerned because of his breathing, and they are concerned that he possibly had aspirated, he does have aphasia and has a PEG tube, as he is not been able to eat as a result of his significant strokes that occurred almost 4 years ago. He had with a thought was a gargling sound, and louder breathing, which is not typical for him. He has a history of aspiration pneumonia in the past. He thought he had a low-grade temperature, but no fever. He does currently reside in a shelter facility, is a long-term resident. No other complaints or concerns at this time. Past Medical History: CVA resulting in aphasia, and bilateral motor and sensory deficits, diabetes mellitus, hypertension Past Surgical History: PEG tube, suprapubic catheter Social History: Currently resides in a shelter facility, no tobacco or alcohol use. Family History: Reviewed and noncontributory for presenting illness Allergies: Reviewed, see documented allergy list. REVIEW OF SYSTEMS: Please review of systems is not obtainable at this time as the patient has global aphasia and unable to provide complete ROS. PHYSICAL EXAMINATION: Vital signs reviewed, nursing noted reviewed. GENERAL: Chronically ill-appearing male, aphasic HEAD: Atraumatic, normocephalic. EYES: Eyes appear normal, extraocular movements intact, sclera anicteric, conjunctiva are normal. ENT: nares patent, oropharynx clear without exudates. Moist mucous membranes. NECK: Supple, no thyromegaly LUNGS: Breath sounds clear to auscultation bilaterally and equal. Mildly dim inished at the bases, but otherwise clear HEART: Regular rate and rhythm without murmurs ABDOMEN: Soft, nontender, normoactive bowel sounds. No rebound, guarding, or rigidity. No masses appreciated. EXTREMITIES: Flexion contractures of the upper extremities bilaterally particularly at the elbows and wrists, nontender, no significant edema appreciated in the lower extremities NEUROLOGICAL: Global aphasia, flexion contractures of the upper extremities bilaterally, no spontaneous movement of the lower extremities, these are all chronic findings according to the patient's family members from his prior CVAs. PSYCH: Aphasia SKIN: Warm, Dry, normal turgor, no rashes or lesions noted on exposed skin TRAVEL OUTSIDE OF THE [place] IN LAST 30 DAYS: No - Related Data Allergies/Adverse Reactions: divalproex sodium [From Depakote] Allergy (Verified 06/16/18 07:54) oxycodone [Oxycodone] Adverse Reaction (Intermediate, Verified 06/16/18 07:54) agitation simvastatin [From Zocor] Adverse Reaction (Unknown, Verified 06/16/18 07:54) dysarthria Past Medical History - Social History Smoking Status: Never Smoker Family History: None, Reviewed & Not Pertinent, Other - Past Medical History Cardiac Medical History: Reports: Hx Heart Attack, Hx Hypercholesterolemia, Hx Hypertension Pulmonary Medical History: Reports: Hx COPD, Hx Pneumonia Neurological Medical History: Reports: Hx Cerebrovascular Accident - CVA in 2013, History of subarachnoid hemorrhage in 2016, Hx Seizures Endocrine Medical History: Reports: Hx Diabetes Mellitus Type 1, Hx Diabetes Mellitus Type 2. Denies: Hx Hyperthyroidism, Hx Hypothyroidism Renal/ Medical History: Reports: Hx Benign Prostatic Hyperplasia. Denies: Hx Peritoneal Dialysis GI Medical History: Reports: Hx Gastroesophageal Reflux Disease - PEG tube post CVA. Denies: Hx Cirrhosis, Hx Hepatitis Musculoskeletal Medical History: Reports Hx Muscle Weakness Psychiatric Medical History: Reports: Hx Dementia, Hx Depression Infectious Medical History: Denies: Hx Hepatitis Past Surgical History: Reports: Hx Abdominal Surgery - Feeding gastrostomy tube, Hx Orthopedic Surgery - Right knee surgery. Titanium jelani, left femur after accident., Other - PEG tube placed - Immunizations Hx Diphtheria, Pertussis, Tetanus Vaccination: Yes Hx Pneumococcal Vaccination: 05/25/14 Physical Exam - Vital signs Vitals: Temp Resp Pulse Ox 98.0 F 22 H 95 09/08/18 19:48 09/08/18 19:48 09/08/18 19:48 Course - Re-evaluation Re-evalutation: Patient seen and examined vital signs reviewed. Laboratory data and imaging were ordered as appropriate for the patient's presenting symptoms and complaint, with consideration of any critical or life threatening conditions that may be associated with their obtained history and exam as noted above. Patient was treated with IV Rocephin for UTI, based on UA testing, will send for culture Results were reviewed when available and demonstrated mild leukocytosis, UA positive for signs of urinary tract infection, possible colonization but will treat with Rocephin, and 6 additional days of Cedinir, based on prior cultures was sensitive to third-generation cephalosporins, over the course the patient's ED stay, he did improve, initially had some heavy breathing, but no wheezing or significant respiratory distress, this had resolved after having the patient sit up in bed, apparently according to the patient's family they [facility] and it seems to make it harder for him to breathe, but when he sits up he improves, this seems to be the case today, I discussed with him the results, and that he does have a UTI, and a mild elevation his white blood cell count, but otherwise his blood work was unremarkable, his renal function was at baseline, chest x-ray is negative for signs of aspiration pneumonia. The patient was re-evaluated and was not hypoxic, hemodynamically stable Evaluation was most consistent with urinary tract infection, dyspnea, leukocytosis Results were discussed with the patient family at this point, after careful con sideration I feel that that patient can be discharged from the emergency department back to his shelter facility, the patient family was educated treatments and reasons to return to the emergency department based on their presumed diagnosis as noted above, they were advised to followup with a primary care physician in 2-3 days. Patient family was agreeable to plan of care. *Note is created using voice recognition software and may contain spelling, syntax or grammatical errors. Laboratory 09/08/18 09/08/18 09/08/18 20:28 20:28 20:28 WBC 11.0 H RBC 4.76 Hgb 14.6 Hct 43.8 MCV 92 MCH 30.7 MCHC 33.4 RDW 15.8 H Plt Count 149 L Seg Neutrophils % 80.2 H Lymphocytes % 8.9 L Monocytes % 6.5 Eosinophils % 4.0 Basophils % 0.4 Absolute Neutrophils 8.8 H Absolute Lymphocytes 1.0 Absolute Monocytes 0.7 Absolute Eosinophils 0.4 Absolute Basophils 0.0 PT INR VBG pH VBG pCO2 VBG HCO3 VBG Base Excess Sodium 145.8 H Potassium 3.9 Chloride 108 H Carbon Dioxide 30 Anion Gap 8 BUN 28 H Creatinine 0.65 Est GFR ( Amer) > 60 Est GFR (Non-Af Amer) > 60 Glucose 245 H Lactic Acid 1.4 Calcium 9.9 Total Bilirubin 0.4 Direct Bilirubin 0.3 Neonat Total Bilirubin Not Reportable Neonat Direct Bilirubin Not Reportable Neonat Indirect Bili Not Reportable AST 20 ALT 30 Alkaline Phosphatase 163 H Total Protein 7.8 Albumin 3.8 Urine Color Urine Appearance Urine pH Ur Specific [place] Urine Protein Urine Glucose (UA) Urine Ketones Urine Blood Urine Nitrite Urine Bilirubin Urine Urobilinogen Ur Leukocyte Esterase Urine WBC (Auto) Urine RBC (Auto) Urine Bacteria (Auto) Urine Mucus (Auto) Urine Yeast (Budding) Urine Ascorbic Acid 09/08/18 09/08/18 09/08/18 20:28 20:30 21:40 WBC RBC Hgb Hct MCV MCH MCHC RDW Plt Count Seg Neutrophils % Lymphocytes % Monocytes % Eosinophils % Basophils % Absolute Neutrophils Absolute Lymphocytes Absolute Monocytes Absolute Eosinophils Absolute Basophils PT 15.0 INR 1.12 VBG pH 7.41 VBG pCO2 50.5 VBG HCO3 31.1 VBG Base Excess 5.2 Sodium Potassium Chloride Carbon Dioxide Anion Gap BUN Creatinine Est GFR ( Amer) Est GFR (Non-Af Amer) Glucose Lactic Acid Calcium Total Bilirubin Direct Bilirubin Neonat Total Bilirubin Neonat Direct Bilirubin Neonat Indirect Bili AST ALT Alkaline Phosphatase Total Protein Albumin Urine Color YELLOW Urine Appearance CLOUDY Urine pH 5.0 Ur Specific [place] 1.023 Urine Protein 100 H Urine Glucose (UA) NEGATIVE Urine Ketones NEGATIVE Urine Blood SMALL H Urine Nitrite NEGATIVE Urine Bilirubin NEGATIVE Urine Urobilinogen NEGATIVE Ur Leukocyte Esterase LARGE H Urine WBC (Auto) 166 Urine RBC (Auto) 131 Urine Bacteria (Auto) TRACE Urine Mucus (Auto) OCC Urine Yeast (Budding) PRESENT Urine Ascorbic Acid 40 H Chest X-Ray 09/08/18 19:48 IMPRESSION: Mild pulmonary edema. No pleural effusions. - Vital Signs Vital signs: Temp Pulse Resp BP Pulse Ox 98.0 F 20 120/75 96 09/08/18 19:48 09/08/18 23:01 09/08/18 23:01 09/08/18 23:01 - Laboratory Result Diagrams: 09/08/18 20:28 09/08/18 20:28 Laboratory results interpreted by me: 09/08/18 09/08/18 09/08/18 20:28 20:28 20:30 WBC 11.0 H RDW 15.8 H Plt Count 149 L Seg Neutrophils % 80.2 H Lymphocytes % 8.9 L Absolute Neutrophils 8.8 H Sodium 145.8 H Chloride 108 H BUN 28 H Glucose 245 H Alkaline Phosphatase 163 H Urine Protein 100 H Urine Blood SMALL H Ur Leukocyte Esterase LARGE H Urine Ascorbic Acid 40 H - EKG Interpretation by Me Additional EKG results interpreted by me: EKG demonstrates sinus rhythm with a ventricular rate of 83 bpm, normal axis, normal intervals, no evidence of acute ischemia on this EKG. This is compared with prior EKG from 12/01/2017, without significant change. Discharge - Discharge Clinical Impression: Hypernatremia UTI (urinary tract infection) Qualifiers: Urinary tract infection type: site unspecified Hematuria presence: with hematuria Qualified Code(s): N39.0 - Urinary tract infection, site not specified Dyspnea Qualifiers: Dyspnea type: unspecified Qualified Code(s): R06.00 - Dyspnea, unspecified Condition: Stable Disposition: HOME-SNF (ED ONLY) Instructions: Urinary Tract Infection ([facility]) Additional Instructions: Please make sure that this patient is lying down at at least a 45 degree angle, so that he is more upright, to prevent aspiration, as he has a history of aspiration pneumonia, and is high risk. I would also encourage him getting into a chair several times a day for a few hours, which will also help with his breathing, and overall quality of life. Please take the prescribed antibiotic for the next 6 days, twice daily. Prescriptions: Cefdinir 300 mg PEG BID #12 capsule Referrals: KATIE KOROMA DO [Primary Care Provider] - Follow up in 3-5 days
--- NOTE | 2018-09-08 20:21 | RADIOLOGY REPORT (SQ) ---
XR CHEST 1 VIEW HISTORY: Cough. COMPARISON: 12/01/2017 FINDINGS: Query cardiomegaly with mild pulmonary vascular congestion. The lungs are clear. No pleural effusion or pneumothorax is identified. No acute osseous findings are seen. IMPRESSION: Mild pulmonary edema. No pleural effusions.
[2018-09-08 20:55] LABS: VENOUS BLOOD BASE EXCESS 5.2 mmol/L; VENOUS BLOOD HCO3 31.1 mmol/L (20-32); VENOUS BLOOD PCO2 50.5 mmHg (35-63); VENOUS BLOOD PH 7.41 (7.30-7.42)
[2018-09-08 21:14] LABS: ABSOLUTE EOSINOPHILS # (AUTO) 0.4 10^3/uL (0.0-0.6); ABSOLUTE MONOCYTES (AUTO) 0.7 10^3/uL (0.1-1.4); ABSOLUTE NEUT (AUTO) 8.8 10^3/uL (1.7-8.2); ALANINE AMINOTRANSFERASE 30 U/L (21-72); ALBUMIN 3.8 g/dL (3.5-5.0); ALKALINE PHOSPHATASE 163 U/L (38-126); ANION GAP 8 (5-19); ASPARTATE AMINO TRANSFERASE 20 U/L (17-59); BASOPHILS % (AUTO) 0.4 % (0-2); BILIRUBIN,DIRECT 0.3 mg/dL (0.0-0.4); BILIRUBIN,TOTAL 0.4 mg/dL (0.2-1.3); BLOOD UREA NITROGEN 28 mg/dL (7-20); CALCIUM 9.9 mg/dL (8.4-10.2); CARBON DIOXIDE 30 mmol/L (22-30); CHLORIDE 108 mmol/L (98-107); GLUCOSE 245 mg/dL (75-110); HEMATOCRIT 43.8 % (37.9-51.0); HEMOGLOBIN 14.6 g/dL (13.5-17.0); LYMPHOCYTES % (AUTO) 8.9 % (13-45); MEAN CORPUSCULAR HEMOGLOBIN 30.7 pg (27.0-33.4); MEAN CORPUSCULAR HGB CONC 33.4 g/dL (32.0-36.0); MEAN CORPUSCULAR VOLUME 92 fl (80-97); MONOCYTES % (AUTO) 6.5 % (3-13); PLATELET COUNT 149 10^3/uL (150-450); POTASSIUM 3.9 mmol/L (3.6-5.0); RED BLOOD COUNT 4.76 10^6/uL (4.35-5.55); RED CELL DISTRIBUTION WIDTH 15.8 % (11.5-14.0); SEGMENTED NEUTROPHILS % (AUTO) 80.2 % (42-78); SODIUM 145.8 mmol/L (137-145); TOTAL CELLS COUNTED % (AUTO) 100 %; TOTAL PROTEIN 7.8 g/dL (6.3-8.2)
[2018-09-08] MEDS ORDERED: RINGERS SOLUTION,LACTATED 1,000 ML IV ONE (21:24)
[2018-09-08 21:44] LABS: APPEARANCE,URINE CLOUDY; BILIRUBIN,URINE NEGATIVE (NEGATIVE); COLOR,URINE YELLOW; GLUCOSE, URINE NEGATIVE (NEGATIVE); KETONES,URINE NEGATIVE (NEGATIVE); LEUKOCYTE ESTERASE,URINE LARGE (NEGATIVE); NITRITE,URINE NEGATIVE (NEGATIVE); PROTEIN,URINE 100 mg/dL (NEGATIVE); URINE SPECIFIC GRAVITY 1.023; UROBILINOGEN,URINE NEGATIVE mg/dL (<2.0)
[2018-09-08] MEDS ORDERED: CEFTRIAXONE INJ 1000 MG VIAL IV ONE (21:55)
[2018-09-08 21:58] LABS: INTERNATIONAL RATION (INR) 1.12
[2018-09-09 00:07] VITALS: BP 135/64
--- NOTE | 2018-09-09 17:58 | EKG REPORT ---
SEVERITY:- OTHERWISE NORMAL ECG - SINUS RHYTHM LOW VOLTAGE IN FRONTAL LEADS : Confirmed by: Chavez Landaverde 09-Sep-2018 17:58:03
== END 2018-09-09 00:13 ==
LOC: ER 19:39
DX: N39.0 Urinary tract infection, site not specified (principal); E87.0 Hyperosmolality and hypernatremia; R05 Cough; R06.02 Shortness of breath; I69.320 Aphasia following cerebral infarction; I69.398 Other sequelae of cerebral infarction; I10 Essential (primary) hypertension; E11.9 Type 2 diabetes mellitus without complications; J44.9 Chronic obstructive pulmonary disease, unspecified; J81.1 Chronic pulmonary edema; I25.2 Old myocardial infarction; Z93.1 Gastrostomy status; Z87.01 Personal history of pneumonia (recurrent); Z88.8 Allergy status to other drugs, medicaments and biological substances
CPT/HCPCS: 93005; 99284; 96365; 36415; 87040; 87086; 85025; 85610; 87088; 80053; 81001; 87186; 82803; 83605; 71045; 93010; J0696

== ENCOUNTER 2018-10-07 08:45 | Inpatient (IN) | payer OTHER, MEDICARE ==
[2018-10-07] MEDS ORDERED: NORMAL SALINE 1000 ML 1,000 ML IV ONE ×2 (09:12→11:33)
--- NOTE | 2018-10-07 09:34 | RADIOLOGY REPORT (SQ) ---
EXAM DESCRIPTION: CHEST SINGLE VIEW COMPLETED DATE/TIME: 10/07/2018 9:23 am REASON FOR STUDY: bed 12 sepsis alert COMPARISON: 09/08/2018 EXAM PARAMETERS: NUMBER OF VIEWS: One view. TECHNIQUE: Single frontal radiographic view of the chest acquired. RADIATION DOSE: NA LIMITATIONS: Contraction, right hand projects over the lung base. FINDINGS: LUNGS AND PLEURA: No opacities, masses or pneumothorax. No pleural effusion. MEDIASTINUM AND HILAR STRUCTURES: No masses. Contour normal. HEART AND VASCULAR STRUCTURES: Heart normal in size. Normal vasculature. BONES: No acute findings. HARDWARE: None in the chest. OTHER: No other significant finding. IMPRESSION: The right lung base is obscured by the the patient's contractured right hand. Within th is limitation, no acute abnormality of the lungs in AP projection. TECHNICAL DOCUMENTATION: JOB ID: [id number] [email or web address] All Rights Reserved Reading location - IP/workstation name: [email or web address]
[2018-10-07] MEDS ORDERED: KETOROLAC TROMETHAMINE INJ/PF 30 MG/1 ML SDV IV ONE (09:52)
[2018-10-07] MEDS ORDERED: ACETAMINOPHEN 650 MG SUPP.RECT PR ONE (09:53)
--- NOTE | 2018-10-07 09:53 | ER Document Report ---
ED General - General Stated Complaint: WEAKNESS Time Seen by Provider: 10/07/18 09:11 Primary Care Provider: KATIE KOROMA DO [Primary Care Provider] - Follow up as needed TRAVEL OUTSIDE OF THE [place] IN LAST 30 DAYS: No - HPI Notes: Patient is a 77-year-old male with an extensive medical history including hemiplegia, COPD, dementia, epilepsy, angina, BPH, emphysema, aphasia, type 2 diabetes, hypertension, coronary artery disease, urinary retention with catheter placement who presents to the emergency department by EMS for having fever and a lactic acid of 3.9. The nursing facility states that they were to feeding him recently and he may have aspirated. He is currently a full code. Patient does have chronic contractions as well. He is not accompanied by any family member or staff member from the skilled nursing. - Related Data Allergies/Adverse Reactions: divalproex sodium [From Depakote] Allergy (Verified 06/16/18 07:54) oxycodone [Oxycodone] Adverse Reaction (Intermediate, Verified 06/16/18 07:54) agitation simvastatin [From Zocor] Adverse Reaction (Unknown, Verified 06/16/18 07:54) dysarthria Past Medical History - General Cannot obtain history due to: Dementia - Social History Smoking Status: Unknown if Ever Smoked Family History: None, Reviewed & Not Pertinent, Other Patient has suicidal ideation: No Patient has homicidal ideation: No - Past Medical History Cardiac Medical History: Reports: Hx Heart Attack, Hx Hypercholesterolemia, Hx Hypertension Pulmonary Medical History: Reports: Hx COPD, Hx Pneumonia Neurological Medical History: Reports: Hx Cerebrovascular Accident - CVA in 2013, History of subarachnoid hemorrhage in 2016, Hx Seizures Endocrine Medical History: Reports: Hx Diabetes Mellitus Type 1, Hx Diabetes Mellitus Type 2. Denies: Hx Hyperthyroidism, Hx Hypothyroidism Renal/ Medical History: Reports: Hx Benign Prostatic Hyperplasia. Denies: Hx Peritoneal Dialysis GI Medical History: Reports: Hx Gastroesophageal Reflux Disease - PEG tube post CVA. Denies: Hx Cirrhosis, Hx Hepatitis Musculoskeletal Medical History: Reports Hx Muscle Weakness Psychiatric Medical History: Reports: Hx Dementia, Hx Depression Infectious Medical History: Denies: Hx Hepatitis Past Surgical History: Reports: Hx Abdominal Surgery - Feeding gastrostomy tube, Hx Orthopedic Surgery - Right knee surgery. Titanium jelani, left femur after accident., Other - PEG tube placed - Immunizations Hx Diphtheria, Pertussis, Tetanus Vaccination: Yes Hx Pneumococcal Vaccination: 05/25/14 Review of Systems - Review of Systems -: Yes ROS unobtainable due to patient's medical condition Physical Exam - Vital signs Vitals: Resp Pulse Ox 19 94 10/07/18 08:49 10/07/18 08:49 - Notes Notes: PHYSICAL EXAMINATION: GENERAL: appears contracted and mouth breathing. No resp distress noted. Pt will open his eyes minimally on command. HEAD: Atraumatic, normocephalic. EYES: Pupils equal round and reactive to light, extraocular movements intact, sclera anicteric, conjunctiva are normal. ENT: Nares patent and without discharge. oropharynx clear without exudates. No tonsilar hypertrophy or erythema. Moist mucous membranes. NECK: Normal range of motion, supple without lymphadenopathy LUNGS: Scant rhonchi. No obvious retractions. HEART: Regular rate and rhythm without murmurs, rubs, gallops. ABDOMEN: Soft, nontender, nondistended abdomen. No guarding, no rebound. Normal bowel sounds present. No CVA tenderness bilaterally. Urine in cath tube appears darker colored. Musculoskeletal: FROM to passive/active. Strength 5+/5. No asymmetry to LE's. Extremities: No cyanosis, clubbing, or edema b/l. Peripheral pulses 2+. Capillary refill less than 3 seconds. PSYCH: flat SKIN: Warm, Dry, normal turgor, no rashes or lesions noted. Course - Re-evaluation Re-evalutation: 10/07/18 11:57 Patient is a 77-year-old male who presents the emergency department with fever and meeting septic criteria. Patient's vitals are currently 91 heart rate, 98% on 2 L via nasal cannula, blood pressure 81/56. CXR unremarkable. CBC shows leukocytosis with bandemia. Lactic acid of 3.9. CMP otherwise unremarkable. Is questionable as it did come out of a catheter bag as he has a suprapubic in place and influenza negative. Rocephin has been given IV as well as fluids. Patient also given Tylenol rectally. We will plan for admission. Dr. Joyce consulted who will eval the patient. 10/07/18 12:08 Reviewed case with hospitalist who will accept admit to [facility]. - Vital Signs Vital signs: Temp Pulse Resp BP Pulse Ox 98.7 F 20 81/56 L 98 10/07/18 12:00 10/07/18 11:30 10/07/18 11:30 10/07/18 11:30 - Laboratory Result Diagrams: 10/07/18 10:12 10/07/18 10:12 Laboratory results interpreted by me: 10/07/18 10/07/18 10/07/18 08:46 09:10 09:11 WBC RDW Plt Count Seg Neuts % (Manual) Band Neutrophils % Lymphocytes % (Manual) Monocytes % (Manual) Metamyelocytes % Abs Neuts (Manual) Abs Lymphs (Manual) Abs Monocytes (Manual) BUN Glucose POC Glucose 170 H Lactic Acid 3.9 H Alkaline Phosphatase Urine Protein 100 H Ur Leukocyte Esterase LARGE H 10/07/18 10/07/18 10:12 10:12 WBC 13.0 H RDW 15.6 H Plt Count 132 L Seg Neuts % (Manual) 92 H Band Neutrophils % 7 H Lymphocytes % (Manual) 0 L Monocytes % (Manual) 0 L Metamyelocytes % 1 H Abs Neuts (Manual) 13.0 H Abs Lymphs (Manual) 0.0 L Abs Monocytes (Manual) 0.0 L BUN 33 H Glucose 174 H POC Glucose Lactic Acid Alkaline Phosphatase 129 H Urine Protein Ur Leukocyte Esterase Discharge - Discharge Clinical Impression: Sepsis Qualifiers: Sepsis type: sepsis due to unspecified organism Qualified Code(s): A41.9 - Sepsis, unspecified organism Fever Qualifiers: Fever type: unspecified Qualified Code(s): R50.9 - Fever, unspecified Condition: Stable Disposition: ADMITTED INPATIENT Admitting Provider: Hospitalist - Dr. Joyce Unit Admitted: [facility] Referrals: KATIE KOROMA DO [Primary Care Provider] - Follow up as needed
[2018-10-07 09:58] LABS: AMORPHOUS SEDIMENT,URINE TRACE /HPF; APPEARANCE,URINE CLOUDY; BILIRUBIN,URINE NEGATIVE (NEGATIVE); GLUCOSE, URINE NEGATIVE (NEGATIVE); KETONES,URINE NEGATIVE (NEGATIVE); LEUKOCYTE ESTERASE,URINE LARGE (NEGATIVE); NITRITE,URINE NEGATIVE (NEGATIVE); PROTEIN,URINE 100 mg/dL (NEGATIVE); TRIPLE PHOSPHATE CRYSTAL,URINE MODERATE /HPF; URINE SPECIFIC GRAVITY 1.017; UROBILINOGEN,URINE NEGATIVE mg/dL (<2.0)
[2018-10-07 10:00] LABS: COLOR,URINE DARK YELLOW
[2018-10-07 10:16] LABS: A TYPE INFLUENZA AG NEGATIVE (NEGATIVE); B INFLUENZA AG NEGATIVE (NEGATIVE)
[2018-10-07 10:33] LABS: VENOUS BLOOD BASE EXCESS 0.8 mmol/L; VENOUS BLOOD HCO3 25.3 mmol/L (20-32); VENOUS BLOOD PCO2 40.2 mmHg (35-63); VENOUS BLOOD PH 7.42 (7.30-7.42)
[2018-10-07] MEDS ORDERED: CEFTRIAXONE 1 GM/D5W RTU 1 GM/50 ML RTUPB IV ONE (10:35)
[2018-10-07 10:36] LABS: HEMATOCRIT 41.6 % (37.9-51.0); MEAN CORPUSCULAR HEMOGLOBIN 30.9 pg (27.0-33.4); MEAN CORPUSCULAR HGB CONC 33.6 g/dL (32.0-36.0); MEAN CORPUSCULAR VOLUME 92 fl (80-97); PLATELET COUNT 132 10^3/uL (150-450); RED BLOOD COUNT 4.53 10^6/uL (4.35-5.55); RED CELL DISTRIBUTION WIDTH 15.6 % (11.5-14.0)
[2018-10-07 10:54] LABS: ALANINE AMINOTRANSFERASE 25 U/L (21-72); ALBUMIN 3.7 g/dL (3.5-5.0); ALKALINE PHOSPHATASE 129 U/L (38-126); ANION GAP 13 (5-19); ASPARTATE AMINO TRANSFERASE 22 U/L (17-59); BILIRUBIN,DIRECT 0.3 mg/dL (0.0-0.4); BILIRUBIN,TOTAL 0.9 mg/dL (0.2-1.3); BLOOD UREA NITROGEN 33 mg/dL (7-20); CALCIUM 9.5 mg/dL (8.4-10.2); CARBON DIOXIDE 24 mmol/L (22-30); CHLORIDE 107 mmol/L (98-107); GLUCOSE 174 mg/dL (75-110); SODIUM 143.9 mmol/L (137-145); TOTAL PROTEIN 7.5 g/dL (6.3-8.2)
[2018-10-07 10:57] LABS: INTERNATIONAL RATION (INR) 1.16; PROTHROMBIN TIME 15.4 SEC (11.4-15.4)
[2018-10-07 11:08] LABS: BAND NEUTROPHILS % (MANUAL) 7 % (3-5); BASOPHILS % (MANUAL) 0 % (0-2); EOSINOPHILS % (MANUAL) 0 % (0-6); LYMPHOCYTES % (MANUAL) 0 % (13-45); METAMYELOCYTES % (MANUAL) 1 % (0); MONOCYTES % (MANUAL) 0 % (3-13); SEGMENTED NEUTROPHILS % (MAN) 92 % (42-78); TOTAL CELLS COUNTED 100
[2018-10-07 11:09] LABS: ANISOCYTOSIS SLIGHT; PLATELET COMMENT DECREASED; TOXIC VACUOLATION PRESENT
--- NOTE | 2018-10-07 12:28 | PDOC H&P ---
History of Present Illness Admission Date/PCP: 10/07/18 12:10 KATIE KOROMA DO History of Present Illness: THAD JOY is a 77 year old black male patient with multiple comorbidities including history of CVA with residual hemiplegia and aphasia. Due to his aphasia and underlying dementia patient is not able to give any history. And no family members in the room during my encounter. Brief history is obtained from the ER attending note. Per ER attending notes patient brought from snf with chief complaint of fever and he also noticed to have lactic acid of 3.9. In ER his rectal temperature is 102 for which she was given Tylenol suppository. When I seen the patient, he is sleeping and does not respond to verbal stimuli. His oxygen saturation is 96% while breathing room air. His urinalysis is pertinent to UTI. Review of system and further detailed history is unobtainable. Past Medical History Cardiac Medical History: Reports: Myocardial Infarction, Hyperlipidema, Hypertension Pulmonary Medical History: Reports: Chronic Obstructive Pulmonary Disease (COPD), Pneumonia Neurological Medical History: Reports: Seizures Endocrine Medical History: Reports: Diabetes Mellitus Type 1, Diabetes Mellitus Type 2 Denies: Hyperthyroidism, Hypothyroidism GI Medical History: Reports: Gastroesophageal Reflux Disease - PEG tube post CVA Denies: Cirrhosis, Hepatitis Psychiatric Medical History: Reports: Dementia, Depression Hematology: Reports: Anemia Past Surgical History Past Surgical History: Reports: Orthopedic Surgery - Right knee surgery. Titanium jelani, left femur after accident., Other - PEG tube placed Social History Smoking Status: Unknown if Ever Smoked Frequency of Alcohol Use: None Hx Recreational Drug Use: No Drugs: None Hx Prescription Drug Abuse: No - Advance Directive Resuscitation Status: Full Code Family History Family History: None, Reviewed & Not Pertinent, Other Parental Family History Reviewed: Yes Children Family History Reviewed: Yes Sibling(s) Family History Reviewed.: Yes Medication/Allergy Home Medications: Ascorbic Acid [Vitamin C 500 mg Tablet] 500 mg GT DAILY 12/01/17 Cranberry Fruit Extract [Cranberry 500 mg Capsule] 500 mg GT DAILY 12/01/17 Famotidine [Pepcid 20 mg Tablet] 20 mg GT BID 12/01/17 Isosorbide Dinitrate [Isordil Titradose 20 mg Tablet] 20 mg GT Q8 12/01/17 Levetiracetam [Keppra] 750 mg GT Q12 12/01/17 Metoprolol Tartrate [Lopressor 25 mg Tablet] 25 mg GT Q12 12/01/17 Multivitamin [Tab-A-Db (Multiple Vitamin) Tablet] 1 tab PO DAILY 12/01/17 Nystatin [Mycostatin Topical Powder 15 gm] 1 applic TOP BID 12/01/17 Zinc Sulfate [Zinc-220 Capsule] 220 mg GT DAILY 12/01/17 Cefuroxime Axetil [Ceftin 500 mg Tablet] 500 mg PEG BID 2 Days #4 tablet 12/08/17 Dextrose 50%-Water [Dextrose Inj 50% Syringe (25 gm/50 ml)] 25 gm IV PRN PRN disp.syrin 12/08/17 Glucagon,Human Recombinant [Glucagen Inj 1 mg Vial] 1 mg IM PRN PRN vial 12/08/17 Insulin Detemir [Levemir Insulin 100 units/mL] 30 unit SUBCUT Q12 insuln.pen 12/08/17 Insulin Lispro [Humalog Insulin (Lispro) 100 unit/mL] 0 - 12 unit SUBCUT Q6HP PRN unit 12/08/17 Ipratropium/Albuterol Sulfate [Duoneb 3 ml Ampul] 3 ml NEB RTQ6HP PRN vial.neb 12/08/17 Lactobacillus Acidophilus [Bacid 250 mg Tablet] 500 mg PEG BID tab 12/08/17 Cefdinir 300 mg PEG BID #12 capsule 09/08/18 Allergies/Adverse Reactions: divalproex sodium [From Depakote] Allergy (Verified 06/16/18 07:54) oxycodone [Oxycodone] Adverse Reaction (Intermediate, Verified 06/16/18 07:54) agitation simvastatin [From Zocor] Adverse Reaction (Unknown, Verified 06/16/18 07:54) dysarthria Review of Systems ROS unobtainable: Due to mental status Physical Exam Vital Signs: Temp Pulse Resp BP Pulse Ox 98.7 F 21 H 104/59 L 97 10/07/18 12:00 10/07/18 12:01 10/07/18 12:00 10/07/18 12:01 Intake & Output 10/06/18 10/07/18 10/08/18 06:59 06:59 06:59 Intake Total 1050 Balance 1050 Weight 84.4 kg General appearance: PRESENT: no acute distress Head exam: PRESENT: atraumatic Eye exam: PRESENT: conjunctiva pink Mouth exam: PRESENT: dry mucosa Neck exam: ABSENT: carotid bruit, JVD, lymphadenopathy, thyromegaly Respiratory exam: PRESENT: accessory muscle use, crackles Cardiovascular exam: PRESENT: RRR. ABSENT: diastolic murmur, rubs, systolic murmur GI/Abdominal exam: PRESENT: other - PEG tube in situ Extremities exam: PRESENT: other - Multiple contractures Results Laboratory Results: 10/07/18 10:12 10/07/18 10:12 10/07/18 10/07/18 10/07/18 08:46 09:10 10:12 WBC 13.0 H RBC 4.53 Hgb 14.0 Hct 41.6 MCV 92 MCH 30.9 MCHC 33.6 RDW 15.6 H Plt Count 132 L Seg Neutrophils % Not Reportable Lymphocytes % Not Reportable Monocytes % Not Reportable Eosinophils % Not Reportable Basophils % Not Reportable Absolute Neutrophils Not Reportable Absolute Lymphocytes Not Reportable Absolute Monocytes Not Reportable Absolute Eosinophils Not Reportable Absolute Basophils Not Reportable VBG pH VBG pCO2 VBG HCO3 VBG Base Excess Sodium Potassium Chloride Carbon Dioxide Anion Gap BUN Creatinine Est GFR ( Amer) Est GFR (Non-Af Amer) Glucose Lactic Acid 3.9 H Calcium Total Bilirubin AST ALT Alkaline Phosphatase Total Protein Albumin Urine Color DARK YELLOW Urine Appearance CLOUDY Urine pH 9.0 Ur Specific [place] 1.017 Urine Protein 100 H Urine Glucose (UA) NEGATIVE Urine Ketones NEGATIVE Urine Blood NEGATIVE Urine Nitrite NEGATIVE Ur Leukocyte Esterase LARGE H Urine WBC (Auto) 14 Urine RBC (Auto) 14 10/07/18 10/07/18 10:12 10:12 WBC RBC Hgb Hct MCV MCH MCHC RDW Plt Count Seg Neutrophils % Lymphocytes % Monocytes % Eosinophils % Basophils % Absolute Neutrophils Absolute Lymphocytes Absolute Monocytes Absolute Eosinophils Absolute Basophils VBG pH 7.42 VBG pCO2 40.2 VBG HCO3 25.3 VBG Base Excess 0.8 Sodium 143.9 Potassium 4.0 Chloride 107 Carbon Dioxide 24 Anion Gap 13 BUN 33 H Creatinine 0.77 Est GFR ( Amer) > 60 Est GFR (Non-Af Amer) > 60 Glucose 174 H Lactic Acid Calcium 9.5 Total Bilirubin 0.9 AST 22 ALT 25 Alkaline Phosphatase 129 H Total Protein 7.5 Albumin 3.7 Urine Color Urine Appearance Urine pH Ur Specific [place] Urine Protein Urine Glucose (UA) Urine Ketones Urine Blood Urine Nitrite Ur Leukocyte Esterase Urine WBC (Auto) Urine RBC (Auto) Impressions: Chest X-Ray 10/07/18 08:46 IMPRESSION: The right lung base is obscured by the the patient's contractured right hand. Within this limitation, no acute abnormality of the lungs in AP projection. Assessment & Plan - Diagnosis (1) Sepsis of urinary tract origin Is this a current diagnosis for this admission?: Yes Plan: Since patient has indwelling catheter chronically, it is inevitable to have recurrent urinary tract infection. I will start him on cefepime and hydrate him cautiously. (2) Complicated UTI (urinary tract infection) Is this a current diagnosis for this admission?: Yes Plan: As a #1 (3) Type 2 diabetes mellitus Is this a current diagnosis for this admission?: Yes Plan: We will continue his home medication and will put him on sliding scale. (4) Coronary artery disease Is this a current diagnosis for this admission?: Yes Plan: We will continue his cardioprotective medications (5) Hypertension Qualifiers: Hypertension type: essential hypertension Qualified Code(s): I10 - Essential (primary) hypertension Is this a current diagnosis for this admission?: Yes Plan: Continue his home medication (6) Hx of CVA with residual hemiplegia Is this a current diagnosis for this admission?: Yes Plan: Continue medications for secondary prevention of CVA. (7) Dementia Is this a current diagnosis for this admission?: Yes Plan: No associated behavioral disorder identified. - Inpatient Certification Medical Necessity: Need For IV Fluids, Need for IV Antibiotics
[2018-10-07] MEDS ORDERED: IPRATROPIUM/ALBUTEROL 0.5-2.5 MG/3 ML AMPUL NEB PRN (12:29)
[2018-10-07] MEDS ORDERED: ONDANSETRON HCL INJ/PF 4 MG/2 ML SDV IV PRN (12:29)
[2018-10-07] MEDS ORDERED: DEXTROSE 50%-WATER 25 GM/50 ML DISP.SYRIN IV PRN ×2 (12:34)
[2018-10-07] MEDS ORDERED: DEXTROSE 40% GEL 15 GM TUBE PO PRN ×2 (12:34)
[2018-10-07] MEDS ORDERED: GLUCAGON,HUMAN RECOMB 1 MG INJ IM PRN (12:34)
[2018-10-07] MEDS: ENOXAPARIN SODIUM INJ 40 MG/0.4 ML DISP.SYRIN SUBCUT SCH (13:54)
[2018-10-07] MEDS: INSULIN LISPRO 100 UNIT/ML 3 ML VIAL SUBCUT SCH ×2 (16:40→21:39)
[2018-10-07] MEDS ORDERED: CEFEPIME 2 GM/D5W RTU 2 GM/50 ML RTUPB IV SCH (22:00)
--- NOTE | 2018-10-08 00:30 | EKG REPORT ---
SEVERITY:- BORDERLINE ECG - SINUS TACHYCARDIA ATRIAL PREMATURE COMPLEX LOW VOLTAGE IN FRONTAL LEADS : Confirmed by: Dahlia Oliver MD 08-Oct-2018 00:30:05
[2018-10-08 05:18] LABS: HEMATOCRIT 41.7 % (37.9-51.0); HEMOGLOBIN 14.1 g/dL (13.5-17.0); MEAN CORPUSCULAR HGB CONC 33.8 g/dL (32.0-36.0); MEAN CORPUSCULAR VOLUME 92 fl (80-97); PLATELET COUNT 114 10^3/uL (150-450); RED BLOOD COUNT 4.56 10^6/uL (4.35-5.55); RED CELL DISTRIBUTION WIDTH 15.7 % (11.5-14.0); WHITE BLOOD COUNT 10.4 10^3/uL (4.0-10.5)
[2018-10-08] MEDS: NORMAL SALINE 1000 ML 1,000 ML IV PRN ×3 (05:18→18:45)
[2018-10-08 05:40] LABS: ANION GAP 7 (5-19); BLOOD UREA NITROGEN 29 mg/dL (7-20); CALCIUM 9.5 mg/dL (8.4-10.2); CARBON DIOXIDE 26 mmol/L (22-30); CHLORIDE 112 mmol/L (98-107); GLUCOSE 100 mg/dL (75-110); SODIUM 145.1 mmol/L (137-145)
[2018-10-08 06:44] LABS: ABSOLUTE LYMPHOCYTES# (MANUAL) 0.4 10^3/uL (0.5-4.7); ABSOLUTE MONOCYTES # (MANUAL) 0.7 10^3/uL (0.1-1.4); BAND NEUTROPHILS % (MANUAL) 4 % (3-5); BASOPHILS % (MANUAL) 0 % (0-2); EOSINOPHILS % (MANUAL) 2 % (0-6); LYMPHOCYTES % (MANUAL) 4 % (13-45); MONOCYTES % (MANUAL) 7 % (3-13); SEGMENTED NEUTROPHILS % (MAN) 83 % (42-78); TOTAL CELLS COUNTED 100
[2018-10-08 06:45] LABS: PLATELET COMMENT ADEQUATE; PLATELET LARGE PRESENT
[2018-10-08] MEDS: INSULIN LISPRO 100 UNIT/ML 3 ML VIAL SUBCUT SCH ×4 (07:31→22:53)
[2018-10-08] MEDS ORDERED: ERTAPENEM SODIUM 1 GM in NORMAL SALINE 50 ML IV SCH (10:00)
[2018-10-08] MEDS: ENOXAPARIN SODIUM INJ 40 MG/0.4 ML DISP.SYRIN SUBCUT SCH (10:56)
--- NOTE | 2018-10-08 16:32 | PDOC PROGRESS REPORT ---
Subjective Progress Note for:: 10/08/18 Subjective:: This is a 77 years old black male patient [facility] resident with multiple comorbidities including coronary artery disease, hypertension, hyperlipidemia, COPD, history of CVA with residual aphasia and left hemiplegia, diabetes mellitus, BPH, dementia and depression, brought with chief complaint of fever. His urine analysis is positive for UTI. Patient has chronic indwelling Vazquez catheter which is the cause for his recurrent urinary tract infection. Last fri his urine culture grew Klebsiella pneumonia which is ESBL and Enterococcus faecalis. Initially empirically started on cefepime but after reviewing his previous culture I switched him to ertapenem. His urine culture is positive For gram-negative rods during this admission. I seen patient resting in bed is not in pain or distress. He is nonverbal. Reason For Visit: SEPSIS OF URINARY TRACT ORIGIN Physical Exam Vital Signs: Temp Pulse Resp BP Pulse Ox 99.3 F 83 28 H 133/70 H 98 10/08/18 15:36 10/08/18 15:36 10/08/18 15:36 10/08/18 15:36 10/08/18 15:36 Intake & Output 10/07/18 10/08/18 10/09/18 06:59 06:59 06:59 Intake Total 2100 1050 Output Total 630 100 Balance 1470 950 Weight 81.4 kg General appearance: PRESENT: no acute distress Head exam: PRESENT: atraumatic Mouth exam: PRESENT: moist Respiratory exam: PRESENT: clear to auscultation yokasta. ABSENT: rales, rhonchi, wheezes Cardiovascular exam: PRESENT: RRR. ABSENT: diastolic murmur, rubs, systolic murmur GI/Abdominal exam: PRESENT: other - Functional PEG tube Results Laboratory Results: 10/08/18 05:00 10/08/18 05:00 10/08/18 10/08/18 05:00 05:00 WBC 10.4 RBC 4.56 Hgb 14.1 Hct 41.7 MCV 92 MCH 31.0 MCHC 33.8 RDW 15.7 H Plt Count 114 L Seg Neutrophils % Not Reportable Lymphocytes % Not Reportable Monocytes % Not Reportable Eosinophils % Not Reportable Basophils % Not Reportable Absolute Neutrophils Not Reportable Absolute Lymphocytes Not Reportable Absolute Monocytes Not Reportable Absolute Eosinophils Not Reportable Absolute Basophils Not Reportable Sodium 145.1 H Potassium 4.0 Chloride 112 H Carbon Dioxide 26 Anion Gap 7 BUN 29 H Creatinine 0.70 Est GFR ( Amer) > 60 Est GFR (Non-Af Amer) > 60 Glucose 100 Calcium 9.5 Impressions: Chest X-Ray 10/07/18 08:46 IMPRESSION: The right lung base is obscured by the the patient's contractured right hand. Within this limitation, no acute abnormality of the lungs in AP projection. Assessment & Plan - Diagnosis (1) Sepsis of urinary tract origin Is this a current diagnosis for this admission?: Yes Plan: Continue ertapenem (2) Complicated UTI (urinary tract infection) Is this a current diagnosis for this admission?: Yes Plan: As a #1 (3) Type 2 diabetes mellitus Is this a current diagnosis for this admission?: Yes Plan: We will continue his home medication and will put him on sliding scale. (4) Coronary artery disease Is this a current diagnosis for this admission?: Yes Plan: We will continue his cardioprotective medications (5) Hypertension Qualifiers: Hypertension type: essential hypertension Qualified Code(s): I10 - Essential (primary) hypertension Is this a current diagnosis for this admission?: Yes Plan: Continue his home medication (6) Hx of CVA with residual hemiplegia Is this a current diagnosis for this admission?: Yes Plan: Continue medications for secondary prevention of CVA. (7) Dementia Is this a current diagnosis for this admission?: Yes Plan: No associated behavioral disorder identified.
[2018-10-09] MEDS: NORMAL SALINE 1000 ML 1,000 ML IV PRN ×3 (02:56→17:06)
[2018-10-09] MEDS: INSULIN LISPRO 100 UNIT/ML 3 ML VIAL SUBCUT SCH ×4 (08:14→22:15)
[2018-10-09] MEDS: ENOXAPARIN SODIUM INJ 40 MG/0.4 ML DISP.SYRIN SUBCUT SCH (09:33)
[2018-10-09] MEDS: CEFTRIAXONE 2 GM/D5W RTU 2 GM/50 ML RTUPB IV SCH (09:43)
[2018-10-09] MEDS: IPRATROPIUM/ALBUTEROL 0.5-2.5 MG/3 ML AMPUL NEB PRN (11:09)
--- NOTE | 2018-10-09 13:28 | PDOC PROGRESS REPORT ---
Subjective Progress Note for:: 10/09/18 Subjective:: Patient is lying on his back. He follows commands. Patient has some wheezing and he is started on bronchodilators. He is being fed Glucerna via PEG tube. He tolerates well. No nausea or vomiting. His urine culture result reported as positive for Proteus mirabilis. I switched his ertapenem to ceftriaxone. Reason For Visit: SEPSIS OF URINARY TRACT ORIGIN Physical Exam Vital Signs: Temp Pulse Resp BP Pulse Ox 98.4 F 78 16 158/77 H 92 10/09/18 12:09 10/09/18 12:09 10/09/18 12:09 10/09/18 12:09 10/09/18 12:09 Intake & Output 10/08/18 10/09/18 10/10/18 06:59 06:59 06:59 Intake Total 2100 3799 988 Output Total 630 625 Balance 1470 3174 988 Weight 81.4 kg 88.1 kg General appearance: PRESENT: no acute distress Head exam: PRESENT: atraumatic Eye exam: PRESENT: conjunctiva pink Mouth exam: PRESENT: dry mucosa Neck exam: ABSENT: carotid bruit, JVD, lymphadenopathy, thyromegaly Respiratory exam: PRESENT: decreased breath sounds Cardiovascular exam: PRESENT: RRR. ABSENT: diastolic murmur, rubs, systolic murmur GI/Abdominal exam: PRESENT: normal bowel sounds, soft. ABSENT: distended, guarding, mass, organolmegaly, rebound, tenderness Results Laboratory Results: 10/08/18 05:00 10/08/18 05:00 Impressions: Chest X-Ray 10/07/18 08:46 IMPRESSION: The right lung base is obscured by the the patient's contractured right hand. Within this limitation, no acute abnormality of the lungs in AP projection. Assessment & Plan - Diagnosis (1) Sepsis of urinary tract origin Is this a current diagnosis for this admission?: Yes Plan: Currently patient is on ceftriaxone. His vital signs are stable and he is afebrile. (2) Complicated UTI (urinary tract infection) Is this a current diagnosis for this admission?: Yes Plan: Continue ceftriaxone. (3) Type 2 diabetes mellitus Is this a current diagnosis for this admission?: Yes Plan: We will continue his home medication and will put him on sliding scale. (4) Coronary artery disease Is this a current diagnosis for this admission?: Yes Plan: We will continue his cardioprotective medications (5) Hypertension Qualifiers: Hypertension type: essential hypertension Qualified Code(s): I10 - Essential (primary) hypertension Is this a current diagnosis for this admission?: Yes Plan: Continue his home medication (6) Hx of CVA with residual hemiplegia Is this a current diagnosis for this admission?: Yes Plan: Continue medications for secondary prevention of CVA. (7) Dementia Is this a current diagnosis for this admission?: Yes Plan: No associated behavioral disorder identified.
[2018-10-10] MEDS: NORMAL SALINE 1000 ML 1,000 ML IV PRN ×3 (02:18→21:38)
[2018-10-10] MEDS: INSULIN LISPRO 100 UNIT/ML 3 ML VIAL SUBCUT SCH ×4 (11:28→21:52)
[2018-10-10] MEDS: CEFTRIAXONE 2 GM/D5W RTU 2 GM/50 ML RTUPB IV SCH (11:34)
[2018-10-10] MEDS: ENOXAPARIN SODIUM INJ 40 MG/0.4 ML DISP.SYRIN SUBCUT SCH (11:50)
--- NOTE | 2018-10-10 15:21 | PDOC PROGRESS REPORT ---
Subjective Progress Note for:: 10/10/18 Subjective:: I seen patient resting in bed. No significant change overnight. Reason For Visit: SEPSIS OF URINARY TRACT ORIGIN Physical Exam Vital Signs: Temp Pulse Resp BP Pulse Ox 98.4 F 64 18 165/73 H 93 10/10/18 11:39 10/10/18 14:32 10/10/18 14:32 10/10/18 11:39 10/10/18 14:32 Intake & Output 10/09/18 10/10/18 10/11/18 06:59 06:59 06:59 Intake Total 3799 3475 1050 Output Total 625 1225 Balance 3174 2250 1050 Weight 88.1 kg 90 kg General appearance: PRESENT: no acute distress Head exam: PRESENT: atraumatic Teeth exam: PRESENT: edentulous Respiratory exam: PRESENT: clear to auscultation yokasta. ABSENT: rales, rhonchi, wheezes Cardiovascular exam: PRESENT: RRR. ABSENT: diastolic murmur, rubs, systolic murmur Results Laboratory Results: 10/08/18 05:00 10/08/18 05:00 Impressions: Chest X-Ray 10/07/18 08:46 IMPRESSION: The right lung base is obscured by the the patient's contractured right hand. Within this limitation, no acute abnormality of the lungs in AP projection. Assessment & Plan - Diagnosis (1) Sepsis of urinary tract origin Is this a current diagnosis for this admission?: Yes Plan: Currently patient is on ceftriaxone. His vital signs are stable and he is afebrile. (2) Complicated UTI (urinary tract infection) Is this a current diagnosis for this admission?: Yes Plan: Continue ceftriaxone. (3) Type 2 diabetes mellitus Is this a current diagnosis for this admission?: Yes Plan: We will continue his home medication and will put him on sliding scale. (4) Coronary artery disease Is this a current diagnosis for this admission?: Yes Plan: We will continue his cardioprotective medications (5) Hypertension Qualifiers: Hypertension type: essential hypertension Qualified Code(s): I10 - Essential (primary) hypertension Is this a current diagnosis for this admission?: Yes Plan: Continue his home medication (6) Hx of CVA with residual hemiplegia Is this a current diagnosis for this admission?: Yes Plan: Continue medications for secondary prevention of CVA. (7) Dementia Is this a current diagnosis for this admission?: Yes Plan: No associated behavioral disorder identified.
[2018-10-11] MEDS ORDERED: HYDRALAZINE HCL INJ/PF 20 MG/1 ML SDV IV PRN (00:22)
[2018-10-11 05:07] LABS: ABSOLUTE EOSINOPHILS # (AUTO) 0.3 10^3/uL (0.0-0.6); ABSOLUTE LYMPHOCYTES (AUTO) 1.1 10^3/uL (0.5-4.7); ABSOLUTE MONOCYTES (AUTO) 0.5 10^3/uL (0.1-1.4); ABSOLUTE NEUT (AUTO) 2.3 10^3/uL (1.7-8.2); BASOPHILS % (AUTO) 0.4 % (0-2); EOSINOPHILS % (AUTO) 6.8 % (0-6); HEMATOCRIT 36.7 % (37.9-51.0); HEMOGLOBIN 12.5 g/dL (13.5-17.0); LYMPHOCYTES % (AUTO) 26.1 % (13-45); MEAN CORPUSCULAR HEMOGLOBIN 30.9 pg (27.0-33.4); MEAN CORPUSCULAR HGB CONC 34.1 g/dL (32.0-36.0); MEAN CORPUSCULAR VOLUME 91 fl (80-97); PLATELET COUNT 108 10^3/uL (150-450); RED BLOOD COUNT 4.05 10^6/uL (4.35-5.55); RED CELL DISTRIBUTION WIDTH 15.1 % (11.5-14.0); SEGMENTED NEUTROPHILS % (AUTO) 55.7 % (42-78); TOTAL CELLS COUNTED % (AUTO) 100 %; WHITE BLOOD COUNT 4.2 10^3/uL (4.0-10.5)
[2018-10-11 05:24] LABS: BLOOD UREA NITROGEN 12 mg/dL (7-20); CALCIUM 8.7 mg/dL (8.4-10.2); CHLORIDE 111 mmol/L (98-107); GLUCOSE 103 mg/dL (75-110); POTASSIUM 3.4 mmol/L (3.6-5.0)
[2018-10-11 05:25] LABS: ANION GAP 9 (5-19); CARBON DIOXIDE 25 mmol/L (22-30); SODIUM 144.5 mmol/L (137-145)
[2018-10-11] MEDS: NORMAL SALINE 1000 ML 1,000 ML IV PRN ×3 (05:37→22:21)
[2018-10-11] MEDS ORDERED: GUAIFENESIN SYRP 200 MG/10 ML UDC PO PRN (08:18)
[2018-10-11] MEDS ORDERED: KETOROLAC TROMETHAMINE INJ/PF 30 MG/1 ML SDV IV ONE (08:42)
[2018-10-11] MEDS: INSULIN LISPRO 100 UNIT/ML 3 ML VIAL SUBCUT SCH ×4 (08:48→22:08)
[2018-10-11] MEDS: LEVETIRACETAM ORAL SOLN 500 MG/5 ML UDCUP GT SCH ×2 (09:29→22:09)
[2018-10-11] MEDS: FAMOTIDINE 20 MG TABLET GT SCH ×2 (09:30→18:17)
[2018-10-11] MEDS: ISOSORBIDE DINITRATE 20 MG TABLET GT SCH ×2 (09:30→18:20)
[2018-10-11] MEDS: ASCORBIC ACID 500 MG TABLET GT SCH (09:30)
[2018-10-11] MEDS: MULTIVITAMIN TABLET PO SCH (09:30)
[2018-10-11] MEDS: LACTOBACILLUS ACIDOPHILUS 250 MG TAB PEG SCH ×2 (09:30→18:20)
[2018-10-11] MEDS: CEFTRIAXONE 2 GM/D5W RTU 2 GM/50 ML RTUPB IV SCH (09:31)
[2018-10-11] MEDS ORDERED: METOPROLOL TARTRATE 25 MG TABLET GT SCH (10:00)
[2018-10-11] MEDS: ENOXAPARIN SODIUM INJ 40 MG/0.4 ML DISP.SYRIN SUBCUT SCH (10:52)
[2018-10-11] MEDS: NYSTATIN TOPICAL POWDER 15 GM TOP SCH ×2 (10:58→18:21)
[2018-10-11] MEDS ORDERED: NORMAL SALINE 1000 ML 1,000 ML IV PRN (12:01)
--- NOTE | 2018-10-11 12:40 | PDOC PROGRESS REPORT ---
Subjective Progress Note for:: 10/11/18 Subjective:: This morning I seen patient.He moans. It seems he is in pain. He is given Toradol 50 mg IV stat. Patient also found to have low blood pressure 97/40 and bradycardia with heart rate of 57. I hold his antihypertensive medication including the Lopressor and bolused him with thousand mL of normal saline. Reason For Visit: SEPSIS OF URINARY TRACT ORIGIN Physical Exam Vital Signs: Temp Pulse Resp BP Pulse Ox 98.1 F 57 L 19 93/40 L 95 10/11/18 08:35 10/11/18 08:35 10/11/18 08:35 10/11/18 08:35 10/11/18 08:35 Intake & Output 10/10/18 10/11/18 10/12/18 06:59 06:59 06:59 Intake Total 3475 4264 50 Output Total 1225 2175 Balance 2250 2089 50 Weight 90 kg 90.2 kg General appearance: PRESENT: mild distress Head exam: PRESENT: atraumatic Eye exam: PRESENT: conjunctiva pink Neck exam: ABSENT: carotid bruit, JVD, lymphadenopathy, thyromegaly Respiratory exam: PRESENT: decreased breath sounds Cardiovascular exam: PRESENT: bradycardia Results Laboratory Results: 10/11/18 04:23 10/11/18 04:23 10/11/18 10/11/18 04:23 04:23 WBC 4.2 RBC 4.05 L Hgb 12.5 L Hct 36.7 L MCV 91 MCH 30.9 MCHC 34.1 RDW 15.1 H Plt Count 108 L Seg Neutrophils % 55.7 Lymphocytes % 26.1 Monocytes % 11.0 Eosinophils % 6.8 H Basophils % 0.4 Absolute Neutrophils 2.3 Absolute Lymphocytes 1.1 Absolute Monocytes 0.5 Absolute Eosinophils 0.3 Absolute Basophils 0.0 Sodium 144.5 Potassium 3.4 L Chloride 111 H Carbon Dioxide 25 Anion Gap 9 BUN 12 Creatinine 0.46 L Est GFR ( Amer) > 60 Est GFR (Non-Af Amer) > 60 Glucose 103 Calcium 8.7 Impressions: Chest X-Ray 10/07/18 08:46 IMPRESSION: The right lung base is obscured by the the patient's contractured right hand. Within this limitation, no acute abnormality of the lungs in AP projection. Assessment & Plan - Diagnosis (1) Hypotension and bradycardia Is this a current diagnosis for this admission?: Yes Plan: Old antihypertensive medications and bolus him with normal saline. And check his vital signs (2) Sepsis of urinary tract origin Is this a current diagnosis for this admission?: Yes Plan: Currently patient is on ceftriaxone. His vital signs are stable and he is afebrile. (3) Complicated UTI (urinary tract infection) Is this a current diagnosis for this admission?: Yes Plan: Continue ceftriaxone. (4) Type 2 diabetes mellitus Is this a current diagnosis for this admission?: Yes Plan: We will continue his home medication and will put him on sliding scale. 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 (8) Dementia Is this a current diagnosis for this admission?: Yes Plan: No associated behavioral disorder identified.
[2018-10-11] MEDS: IPRATROPIUM/ALBUTEROL 0.5-2.5 MG/3 ML AMPUL NEB PRN (16:18)
[2018-10-11] MEDS ORDERED: GUAIFENESIN SYRP 200 MG/10 ML UDC PEG PRN (17:30)
--- NOTE | 2018-10-11 18:15 | EKG REPORT ---
SEVERITY:- BORDERLINE ECG - SINUS BRADYCARDIA LOW VOLTAGE THROUGHOUT : Confirmed by: Dahlia Oliver MD 11-Oct-2018 18:14:55
[2018-10-12] MEDS: NORMAL SALINE 1000 ML 1,000 ML IV PRN ×2 (05:37→13:04)
[2018-10-12] MEDS: INSULIN LISPRO 100 UNIT/ML 3 ML VIAL SUBCUT SCH ×4 (11:30→21:35)
[2018-10-12] MEDS: LEVETIRACETAM ORAL SOLN 500 MG/5 ML UDCUP GT SCH ×2 (11:32→22:28)
[2018-10-12] MEDS: LACTOBACILLUS ACIDOPHILUS 250 MG TAB PEG SCH ×2 (11:32→18:32)
[2018-10-12] MEDS: FAMOTIDINE 20 MG TABLET GT SCH ×2 (11:33→18:33)
[2018-10-12] MEDS: MULTIVITAMIN TABLET PO SCH (11:33)
[2018-10-12] MEDS: ISOSORBIDE DINITRATE 20 MG TABLET GT SCH ×2 (11:33→18:33)
[2018-10-12] MEDS: NYSTATIN TOPICAL POWDER 15 GM TOP SCH ×2 (11:33→18:33)
[2018-10-12] MEDS: ASCORBIC ACID 500 MG TABLET GT SCH (11:33)
[2018-10-12] MEDS: INSULIN DETEMIR 100 UNIT/ML 3 ML PEN SUBCUT SCH (11:34)
[2018-10-12] MEDS: ENOXAPARIN SODIUM INJ 40 MG/0.4 ML DISP.SYRIN SUBCUT SCH (11:44)
[2018-10-12] MEDS: CEFTRIAXONE 2 GM/D5W RTU 2 GM/50 ML RTUPB IV SCH (12:41)
[2018-10-12] MEDS: AMPICILLIN SODIUM 500 MG in NORMAL SALINE 25 ML IV SCH ×3 (13:05→23:35)
--- NOTE | 2018-10-12 15:36 | PDOC PROGRESS REPORT ---
Subjective Progress Note for:: 10/12/18 Subjective:: This is a 77 years old black male patient [facility] resident with multiple comorbidities including coronary artery disease, hypertension, hyperlipidemia, COPD, history of CVA with residual aphasia and left hemiplegia, diabetes mellitus, BPH, dementia and depression, brought with chief complaint of fever. His urine analysis is positive for UTI. Patient has suprapubic catheter which is the cause for his recurrent urinary tract infection. Last month his urine culture grew Klebsiella pneumonia which is ESBL and Enterococcus faecalis. Initially empirically started on cefepime but after reviewing his previous culture I switched him to ertapenem. Initially his urine culture grew Proteus mirabilis I switched her ertapenem to ceftriaxone and again I switched to ceftriaxone ampicillin since his latest urine culture come back positive For Enterococcus faecalis which is sensitive to ampicillin and Proteus mirabilis also sensitive to this antibiotic. I seen patient resting in bed is not in pain or distress. Yesterday patient had an episode of hypotension and sinus bradycardia which has resolved currently. Reason For Visit: SEPSIS OF URINARY TRACT ORIGIN Physical Exam Vital Signs: Temp Pulse Resp BP Pulse Ox 98.3 F 80 20 124/52 L 92 10/12/18 11:52 10/12/18 14:00 10/12/18 14:00 10/12/18 11:52 10/12/18 14:00 Intake & Output 10/11/18 10/12/18 10/13/18 06:59 06:59 06:59 Intake Total 4264 4934 956 Output Total 2175 1775 400 Balance 2089 3159 556 Weight 90.2 kg 93 kg General appearance: PRESENT: no acute distress Head exam: PRESENT: atraumatic Eye exam: PRESENT: conjunctiva pink Mouth exam: PRESENT: moist Neck exam: ABSENT: carotid bruit, JVD, lymphadenopathy, thyromegaly Respiratory exam: PRESENT: crackles, decreased breath sounds Cardiovascular exam: PRESENT: RRR. ABSENT: diastolic murmur, rubs, systolic murmur Results Laboratory Results: 10/11/18 04:23 10/11/18 04:23 10/07/18 12:24 Blood Blood Culture - Final NO GROWTH IN 5 DAYS 10/07/18 10:12 Blood Blood Culture - Final NO GROWTH IN 5 DAYS 10/07/18 09:10 Vazquez Catheter Urine Culture - Final Proteus Mirabilis Enterococcus Faecalis(Group D) Impressions: Chest X-Ray 10/07/18 08:46 IMPRESSION: The right lung base is obscured by the the patient's contractured right hand. Within this limitation, no acute abnormality of the lungs in AP projection. Assessment & Plan - Diagnosis (1) Hypotension and bradycardia Is this a current diagnosis for this admission?: Yes Plan: Has resolved (2) Sepsis of urinary tract origin Is this a current diagnosis for this admission?: Yes Plan: Currently patient is on ceftriaxone. His vital signs are stable and he is afebrile. (3) Complicated UTI (urinary tract infection) Is this a current diagnosis for this admission?: Yes Plan: Urine culture is positive for Proteus mirabilis and Enterococcus faecalis and both are sensitive to ampicillin. (4) Type 2 diabetes mellitus Is this a current diagnosis for this admission?: Yes Plan: We will continue his home medication and will put him on sliding scale. 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 (8) Dementia Is this a current diagnosis for this admission?: Yes Plan: No associated behavioral disorder identified.
[2018-10-13] MEDS: NORMAL SALINE 1000 ML 1,000 ML IV PRN ×3 (01:19→18:50)
[2018-10-13] MEDS: AMPICILLIN SODIUM 500 MG in NORMAL SALINE 25 ML IV SCH ×4 (05:27→23:00)
[2018-10-13 07:20] LABS: BLOOD UREA NITROGEN 10 mg/dL (7-20); CALCIUM 8.3 mg/dL (8.4-10.2); CHLORIDE 114 mmol/L (98-107); GLUCOSE 89 mg/dL (75-110); POTASSIUM 3.5 mmol/L (3.6-5.0)
[2018-10-13 07:26] LABS: CARBON DIOXIDE 26 mmol/L (22-30); SODIUM 146.5 mmol/L (137-145)
[2018-10-13 07:37] LABS: ANION GAP 7 (5-19)
[2018-10-13] MEDS: INSULIN LISPRO 100 UNIT/ML 3 ML VIAL SUBCUT SCH ×4 (08:41→21:49)
[2018-10-13] MEDS: INSULIN DETEMIR 100 UNIT/ML 3 ML PEN SUBCUT SCH (08:43)
[2018-10-13] MEDS: LEVETIRACETAM ORAL SOLN 500 MG/5 ML UDCUP GT SCH ×2 (09:42→21:51)
[2018-10-13] MEDS: ISOSORBIDE DINITRATE 20 MG TABLET GT SCH ×2 (09:42→18:13)
[2018-10-13] MEDS: NYSTATIN TOPICAL POWDER 15 GM TOP SCH ×2 (09:42→18:14)
[2018-10-13] MEDS: FAMOTIDINE 20 MG TABLET GT SCH ×2 (09:42→18:13)
[2018-10-13] MEDS: ASCORBIC ACID 500 MG TABLET GT SCH (09:42)
[2018-10-13] MEDS: MULTIVITAMIN TABLET PO SCH (09:42)
[2018-10-13] MEDS: ENOXAPARIN SODIUM INJ 40 MG/0.4 ML DISP.SYRIN SUBCUT SCH (09:42)
[2018-10-13] MEDS: LACTOBACILLUS ACIDOPHILUS 250 MG TAB PEG SCH ×2 (09:42→18:13)
[2018-10-13] MEDS ORDERED: LIDOCAINE 1% INJ-PF (10 MG/ML) 30 ML SDV ONE (19:58)
--- NOTE | 2018-10-13 20:51 | Operative Report ---
Nonrecallable Operative Report DATE OF SURGERY: 10/13/18 PREOPERATIVE DIAGNOSIS: need IV access for medications and fluids POSTOPERATIVE DIAGNOSIS: same OPERATION: right subclavian vein central venous catheter SURGEON: TADEO GALVEZ ANESTHESIA: Local - 15 mL 1% lidocaine w/o epinephrine TISSUE REMOVED OR ALTERED: n/a COMPLICATIONS: none ESTIMATED BLOOD LOSS: <5 mL INTRAOPERATIVE FINDINGS: as above PROCEDURE: see dictation
--- NOTE | 2018-10-13 20:59 | PDOC CONSULTATION ---
Consultation Consult Date: 10/13/18 Consult reason:: need IV access History of Present Illness Admission Date/PCP: 10/07/18 12:10 KATIE KOROMA DO History of Present Illness: THAD JOY is a 77 year old male affected by dementia, parkinon's, upper extremity flexion contractures, bedridden in need of IV access for the aministration of medications and fluids. Past Medical History Cardiac Medical History: Reports: Myocardial Infarction, Hyperlipidema, Hypertension Pulmonary Medical History: Reports: Chronic Obstructive Pulmonary Disease (COPD), Pneumonia Neurological Medical History: Reports: Seizures Endocrine Medical History: Reports: Diabetes Mellitus Type 1, Diabetes Mellitus Type 2 Denies: Hyperthyroidism, Hypothyroidism GI Medical History: Reports: Gastroesophageal Reflux Disease - PEG tube post CVA Denies: Cirrhosis, Hepatitis Psychiatric Medical History: Reports: Dementia, Depression Hematology: Reports: Anemia Past Surgical History Past Surgical History: Reports: Orthopedic Surgery - Right knee surgery. Titanium jelain, left femur after accident., Other - PEG tube placed Social History Smoking Status: Former Smoker Last Time Smoked: 08/1994 Frequency of Alcohol Use: None Hx Recreational Drug Use: No Drugs: None Hx Prescription Drug Abuse: No - Advance Directive Resuscitation Status: Full Code Family History Family History: None, Reviewed & Not Pertinent, Other Parental Family History Reviewed: No Children Family History Reviewed: No Sibling(s) Family History Reviewed.: No Medication/Allergy Home Medications: Ascorbic Acid [Vitamin C 500 mg Tablet] 500 mg GT DAILY 12/01/17 Cranberry Fruit Extract [Cranberry 500 mg Capsule] 500 mg GT DAILY 12/01/17 Famotidine [Pepcid 20 mg Tablet] 20 mg GT BID 12/01/17 Isosorbide Dinitrate [Isordil Titradose 20 mg Tablet] 20 mg GT BID 12/01/17 Levetiracetam [Keppra] 750 mg GT Q12 12/01/17 Metoprolol Tartrate [Lopressor 25 mg Tablet] 25 mg GT Q12 12/01/17 Multivitamin [Tab-A-Db (Multiple Vitamin) Tablet] 1 tab PO DAILY 12/01/17 Nystatin [Mycostatin Topical Powder 15 gm] 1 applic TOP BID 12/01/17 Glucagon,Human Recombinant [Glucagen Inj 1 mg Vial] 1 mg IM PRN PRN vial 12/08/17 Ipratropium/Albuterol Sulfate [Duoneb 3 ml Ampul] 3 ml NEB RTQ6HP PRN vial.neb 12/08/17 Lactobacillus Acidophilus [Bacid 250 mg Tablet] 500 mg PEG BID tab 12/08/17 Guaifenesin [Robitussin Syrup 200 mg/10 ml Ud Cup] 30 ml PO Q6HP PRN 10/07/18 Insulin Detemir [Levemir Insulin 100 units/mL] 15 unit SUBCUT QAM 10/07/18 Allergies/Adverse Reactions: divalproex sodium [From Depakote] Allergy (Verified 06/16/18 07:54) oxycodone [Oxycodone] Adverse Reaction (Intermediate, Verified 06/16/18 07:54) agitation simvastatin [From Zocor] Adverse Reaction (Unknown, Verified 06/16/18 07:54) dysarthria Physical Exam Vital Signs: Temp Pulse Resp BP Pulse Ox 97.4 F 45 L 16 134/48 H 98 10/13/18 15:27 10/13/18 15:27 10/13/18 15:27 10/13/18 15:27 10/13/18 15:27 Intake & Output 10/12/18 10/13/18 10/14/18 06:59 06:59 06:59 Intake Total 4934 4117 3299 Output Total 1775 1225 1225 Balance 3159 2892 2074 Weight 93 kg 93 kg General appearance: PRESENT: no acute distress, other - alert but nor coopera tive due to dementia Head exam: PRESENT: atraumatic Mouth exam: PRESENT: neck supple, other - with right side torcicollis Respiratory exam: PRESENT: clear to auscultation yokasta Cardiovascular exam: PRESENT: RRR GI/Abdominal exam: PRESENT: soft Extremities exam: PRESENT: other - both upper extremities are contracted in flexion position Results Laboratory Results: 10/11/18 04:23 10/13/18 06:28 10/13/18 06:28 Sodium 146.5 H Potassium 3.5 L Chloride 114 H Carbon Dioxide 26 Anion Gap 7 BUN 10 Creatinine 0.52 Est GFR ( Amer) > 60 Est GFR (Non-Af Amer) > 60 Glucose 89 Calcium 8.3 L Impressions: Chest X-Ray 10/07/18 08:46 IMPRESSION: The right lung base is obscured by the the patient's contractured right hand. Within this limitation, no acute abnormality of the lungs in AP projection. Assessment & Plan - Diagnosis (1) Need for intravenous access Is this a current diagnosis for this admission?: Yes - Plan Summary Plan Summary: A/ bedridden and demented patient with upper extremities contracture in need of IV access for medications and fluids P/ Placement of CVL at bedside. Procedure., risk, benefits, complications explained to the patient's daughter, she understands all the above and decides to proceed.
--- NOTE | 2018-10-13 21:22 | RADIOLOGY REPORT (SQ) ---
EXAM DESCRIPTION: XR CHEST 1 VIEW COMPLETED DATE/TME: 10/13/2018 00:00 CLINICAL HISTORY: 77 years, Male, central line placement COMPARISON: 10/07/2018 chest NUMBER OF VIEWS: 1 TECHNIQUE: Portable chest LIMITATIONS: None. FINDINGS: Heart size is stable. Atheromatous change thoracic aorta. Osteopenia. Central venous catheter with the tip likely in the SVC. No pneumothorax. Lungs are clear IMPRESSION: No acute cardiopulmonary process. Tip of the central line likely in the SVC copyright 2010 [employer]- All Rights Reserved
[2018-10-13] MEDS ORDERED: LIDOCAINE 2% INJ (20 MG/ML) 20 ML MDV INJ ONE (21:30)
--- NOTE | 2018-10-13 21:58 | OPERATIVE REPORT E ---
Operative Report NAME: THAD JOY : 1940 AGE: 77Y DATE OF SURGERY: 10/13/2018 ROOM: 322 PREOPERATIVE DIAGNOSIS: NEED FOR IV ACCESS FOR MEDICATION AND FLUIDS. POSTOPERATIVE DIAGNOSIS: NEED FOR IV ACCESS FOR MEDICATION AND FLUIDS. OPERATION: Placement of right subclavian vein intravenous line. SURGEON: TADEO GALVEZ M.D. SEWING MACHIN[employer] SALESPERSON: None. ESTIMATED BLOOD LOSS: Minimal, less than 5 mL. COMPLICATIONS: None. ANESTHESIA: Local, 50 mL of 1% lidocaine with epinephrine. INDICATIONS AND FINDINGS: This is a 77-year-old male with dementia, Parkinson, bedridden, and contractures, in need of IV access for the administration of medication and fluids. The procedure was discussed with the patient's daughter. The procedure, risks, benefits and complications explained to the daughter. She understands all of the above and decided to proceed. PROCEDURE: The procedure was done at bedside. The patient was placed in supine Trendelenburg position. The right side of the neck and upper chest were prepped and draped in usual fashion, despite contracture of the right upper extremity. The area just below the midportion of the right clavicle was infiltrated with lidocaine and a 16-gauge needle was introduced and easily cannulated the subclavian vein. The guidewire was inserted through the needle into the subclavian vein to the superior vena cava. Needle was removed. Insertion point for guidewire was enlarged with a #11 blade and a tissue elevator, which was then removed. Triple-lumen catheter was inserted over the guidewire into the subclavian vein to the superior vena cava. The guidewire was removed. Each port of the triple-lumen catheter was aspirated and flushed with normal saline without difficulty. The catheter was then secured to the skin with silk sutures and sterile dressings applied. The patient tolerated the procedure well. Chest x-ray was obtained to confirm good position of the line. DICTATING PHYSICIAN: TADEO GALVEZ M.D. [id number] PHY#: [id number] ID: [id number] JOB#: [id number] ACCT: [id number] cc:TADEO GALVEZ M.D. > [facility]ITALNolberto
[2018-10-14] MEDS: NORMAL SALINE 1000 ML 1,000 ML IV PRN ×2 (04:08→15:27)
[2018-10-14] MEDS: AMPICILLIN SODIUM 500 MG in NORMAL SALINE 25 ML IV SCH ×3 (05:10→17:44)
[2018-10-14 05:43] LABS: HEMATOCRIT 33.6 % (37.9-51.0); HEMOGLOBIN 11.3 g/dL (13.5-17.0); MEAN CORPUSCULAR HEMOGLOBIN 30.7 pg (27.0-33.4); MEAN CORPUSCULAR HGB CONC 33.6 g/dL (32.0-36.0); MEAN CORPUSCULAR VOLUME 91 fl (80-97); PLATELET COUNT 152 10^3/uL (150-450); RED BLOOD COUNT 3.68 10^6/uL (4.35-5.55); RED CELL DISTRIBUTION WIDTH 15.2 % (11.5-14.0)
[2018-10-14 06:11] LABS: BLOOD UREA NITROGEN 9 mg/dL (7-20); CALCIUM 8.2 mg/dL (8.4-10.2); CHLORIDE 112 mmol/L (98-107); GLUCOSE 72 mg/dL (75-110); POTASSIUM 3.4 mmol/L (3.6-5.0)
[2018-10-14 06:17] LABS: CARBON DIOXIDE 31 mmol/L (22-30); SODIUM 145.5 mmol/L (137-145)
[2018-10-14 06:22] LABS: ANION GAP 3 (5-19)
--- NOTE | 2018-10-14 06:22 | PDOC PROGRESS REPORT ---
Subjective Progress Note for:: 10/13/18 Subjective:: The patient is sleeping. The daughter states that he had a good day yesterday afternoon and typically will follow a good day with marked somnolence. Reason For Visit: SEPSIS OF URINARY TRACT ORIGIN Physical Exam Vital Signs: Temp Pulse Resp BP Pulse Ox 97.4 F 45 L 16 134/48 H 98 10/13/18 15:27 10/13/18 15:27 10/13/18 15:27 10/13/18 15:27 10/13/18 15:27 Intake & Output 10/12/18 10/13/18 10/14/18 06:59 06:59 06:59 Intake Total 4934 4117 2295 Output Total 1775 1225 1225 Balance 3159 2892 1070 Weight 93 kg 93 kg General appearance: PRESENT: no acute distress, other - Somnolent Head exam: PRESENT: normocephalic Respiratory exam: PRESENT: clear to auscultation yokasta, symmetrical, unlabored. ABSENT: rales, rhonchi, wheezes Cardiovascular exam: PRESENT: bradycardia, +S1, +S2 GI/Abdominal exam: PRESENT: normal bowel sounds, soft, other - PEG tube in place. ABSENT: tenderness Gentrourinary exam: PRESENT: indwelling catheter - Suprapubic catheter in place Extremities exam: PRESENT: other - Bilateral upper extremity contractures. Neurological exam: ABSENT: awake Results Laboratory Results: 10/11/18 04:23 10/13/18 06:28 10/13/18 06:28 Sodium 146.5 H Potassium 3.5 L Chloride 114 H Carbon Dioxide 26 Anion Gap 7 BUN 10 Creatinine 0.52 Est GFR ( Amer) > 60 Est GFR (Non-Af Amer) > 60 Glucose 89 Calcium 8.3 L Impressions: Chest X-Ray 10/07/18 08:46 IMPRESSION: The right lung base is obscured by the the patient's contractured right hand. Within this limitation, no acute abnormality of the lungs in AP projection. Assessment & Plan - Diagnosis (1) Sepsis of urinary tract origin Is this a current diagnosis for this admission?: Yes Plan: Sepsis is resolved. The urine was positive for Proteus mirabilis and enterococcus. The patient is on ampicillin which will cover both organisms. For continuous intravenous access a central line with [place]. The PICC line requested was unable to be inserted due to upper extremity contractures. (2) Hypertension Qualifiers: Hypertension type: essential hypertension Qualified Code(s): I10 - Essential (primary) hypertension Is this a current diagnosis for this admission?: Yes Plan: Still with bradycardia. Blood pressure is beginning to increase. He was on metoprolol twice daily at home. I will resume the metoprolol with parameters to hold for bradycardia. He may benefit from low-dose NEVILLE inhibitor because of his diabetes. (3) Type 2 diabetes mellitus Qualifiers: Diabetes mellitus prison insulin use: with prison use Is this a current diagnosis for this admission?: Yes Plan: Continue current insulin regimen. Continue Accu-Cheks. (4) Hx of CVA with residual hemiplegia Is this a current diagnosis for this admission?: Yes Plan: Continue tube feeds. Suprapubic catheter in place. Daughter reports that patient attempted vocalization yesterday. Consider physical therapy when patient is more awake and alert. - Time Time Spent with patient: 15-24 minutes Medications reviewed and adjusted accordingly: Yes
[2018-10-14] MEDS: INSULIN LISPRO 100 UNIT/ML 3 ML VIAL SUBCUT SCH ×4 (07:35→21:54)
[2018-10-14] MEDS: INSULIN DETEMIR 100 UNIT/ML 3 ML PEN SUBCUT SCH (07:35)
[2018-10-14] MEDS: ENOXAPARIN SODIUM INJ 40 MG/0.4 ML DISP.SYRIN SUBCUT SCH (09:18)
[2018-10-14] MEDS: ISOSORBIDE DINITRATE 20 MG TABLET GT SCH ×2 (09:18→17:44)
[2018-10-14] MEDS: ASCORBIC ACID 500 MG TABLET GT SCH (09:18)
[2018-10-14] MEDS: LEVETIRACETAM ORAL SOLN 500 MG/5 ML UDCUP GT SCH ×2 (09:18→21:54)
[2018-10-14] MEDS: MULTIVITAMIN TABLET PO SCH (09:18)
[2018-10-14] MEDS: FAMOTIDINE 20 MG TABLET GT SCH ×2 (09:18→17:44)
[2018-10-14] MEDS: LACTOBACILLUS ACIDOPHILUS 250 MG TAB PEG SCH ×2 (09:18→17:44)
[2018-10-14] MEDS: NYSTATIN TOPICAL POWDER 15 GM TOP SCH ×2 (09:37→17:44)
--- NOTE | 2018-10-14 19:12 | PDOC PROGRESS REPORT ---
Subjective Progress Note for:: 10/14/18 Subjective:: No response to verbal interaction. History of aphasia and dementia. Reason For Visit: SEPSIS OF URINARY TRACT ORIGIN Physical Exam Vital Signs: Temp Pulse Resp BP Pulse Ox 97.8 F 50 L 18 139/53 H 98 10/14/18 16:11 10/14/18 16:11 10/14/18 16:11 10/14/18 16:11 10/14/18 16:11 Intake & Output 10/13/18 10/14/18 10/15/18 06:59 06:59 06:59 Intake Total 4117 5657 6439 Output Total 1225 8735 1000 Balance 2892 3132 5439 Weight 93 kg 95 kg General appearance: PRESENT: no acute distress, other - Did not respond to multiple verbal cues. Head exam: PRESENT: normocephalic Eye exam: PRESENT: other - Unable to assess Ear exam: PRESENT: normal external ear exam Mouth exam: PRESENT: other - Unable to assess Respiratory exam: PRESENT: clear to auscultation yokasta, symmetrical, unlabored. ABSENT: rales, rhonchi, wheezes Cardiovascular exam: PRESENT: RRR, +S1, +S2 GI/Abdominal exam: PRESENT: normal bowel sounds, soft, other - PEG tube in pl [place]. ABSENT: distended, tenderness Gentrourinary exam: PRESENT: indwelling catheter - Suprapubic Extremities exam: PRESENT: other - Severely contracted upper extremities Neurological exam: PRESENT: aphasic, other - Unable to elicit interaction today. Psychiatric exam: PRESENT: other - Unable to assess Results Laboratory Results: 10/14/18 05:17 10/14/18 05:17 10/14/18 10/14/18 10/14/18 05:17 05:17 05:17 WBC 6.0 RBC 3.68 L Hgb 11.3 L Hct 33.6 L MCV 91 MCH 30.7 MCHC 33.6 RDW 15.2 H Plt Count 152 Sodium 145.5 H Potassium 3.4 L Chloride 112 H Carbon Dioxide 31 H Anion Gap 3 L BUN 9 Creatinine 0.45 L Est GFR ( Amer) > 60 Est GFR (Non-Af Amer) > 60 Glucose 72 L Lactic Acid < 0.5 L Calcium 8.2 L Impressions: Chest X-Ray 10/13/18 00:00 IMPRESSION: No acute cardiopulmonary process. Tip of the central line likely in the C copyright 2011 [employer]- All Rights Reserved Assessment & Plan - Diagnosis (1) Sepsis of urinary tract origin Is this a current diagnosis for this admission?: Yes Plan: Enterococcus and Proteus mirabilis. Ampicillin 500 mg IV every 6 hours through October 19. We will likely change this to PEG tube administration as patient is stable. (2) Hypertension Qualifiers: Hypertension type: essential hypertension Qualified Code(s): I10 - Essential (primary) hypertension Is this a current diagnosis for this admission?: Yes Plan: Still with bradycardia. Metoprolol has parameters to hold for bradycardia. Will add low-dose NEVILLE inhibitor for better blood pressure control. (3) Type 2 diabetes mellitus Qualifiers: Diabetes mellitus senior care insulin use: with intermediate designer use Is this a current diagnosis for this admission?: Yes Plan: Continue current insulin regimen. Continue Accu-Cheks. (4) Hx of CVA with residual hemiplegia Is this a current diagnosis for this admission?: Yes Plan: Continue tube feeds. Suprapubic catheter in place. Stable to return to [facility] and complete antibiotic therapy there. - Time Time Spent with patient: Less than 15 minutes Medications reviewed and adjusted accordingly: Yes Anticipated discharge: SNF
[2018-10-15] MEDS: AMPICILLIN SODIUM 500 MG in NORMAL SALINE 25 ML IV SCH ×4 (01:05→18:25)
[2018-10-15] MEDS: INSULIN LISPRO 100 UNIT/ML 3 ML VIAL SUBCUT SCH ×3 (08:27→16:45)
[2018-10-15] MEDS: LEVETIRACETAM ORAL SOLN 500 MG/5 ML UDCUP GT SCH (09:44)
[2018-10-15] MEDS: ASCORBIC ACID 500 MG TABLET GT SCH (09:44)
[2018-10-15] MEDS: MULTIVITAMIN TABLET PO SCH (09:44)
[2018-10-15] MEDS: FAMOTIDINE 20 MG TABLET GT SCH ×2 (09:48→18:07)
[2018-10-15] MEDS: ENOXAPARIN SODIUM INJ 40 MG/0.4 ML DISP.SYRIN SUBCUT SCH (09:48)
[2018-10-15] MEDS: LACTOBACILLUS ACIDOPHILUS 250 MG TAB PEG SCH ×2 (09:48→18:06)
[2018-10-15] MEDS: ISOSORBIDE DINITRATE 20 MG TABLET GT SCH ×2 (09:48→18:06)
[2018-10-15] MEDS: NYSTATIN TOPICAL POWDER 15 GM TOP SCH ×2 (09:58→18:07)
[2018-10-15] MEDS: INSULIN DETEMIR 100 UNIT/ML 3 ML PEN SUBCUT SCH (09:58)
[2018-10-15] MEDS ORDERED: POTASSIUM CHLORIDE 20 MEQ/15 ML UDCUP PEG SCH (10:00)
[2018-10-15] MEDS ORDERED: LISINOPRIL 5 MG TABLET PO SCH (10:00)
--- NOTE | 2018-10-15 14:51 | PDOC TRANSFER SUMMARY ---
General Admission Date/PCP: 10/07/18 12:10 KATIE KOROMA DO Admission Date: 10/07/18 Transfer Date: 10/15/18 Resuscitation Status: Full Code - Transfer Medications Home Medications: Ascorbic Acid [Vitamin C 500 mg Tablet] 500 mg GT DAILY 12/01/17 Cranberry Fruit Extract [Cranberry 500 mg Capsule] 500 mg GT DAILY 12/01/17 Famotidine [Pepcid 20 mg Tablet] 20 mg GT BID 12/01/17 Isosorbide Dinitrate [Isordil Titradose 20 mg Tablet] 20 mg GT BID 12/01/17 Levetiracetam [Keppra] 750 mg GT Q12 12/01/17 Metoprolol Tartrate [Lopressor 25 mg Tablet] 25 mg GT Q12 12/01/17 Nystatin [Mycostatin Topical Powder 15 gm] 1 applic TOP BID 12/01/17 Insulin Detemir [Levemir Insulin 100 units/mL] 15 unit SUBCUT QAM 10/07/18 Transfer Medications: Current Medications Albuterol/Ipratropium (Duoneb 3 Ml Ampul) 3 ml NEB RTBIDP PRN PRN Reason: WHEEZING Stop: 11/08/18 09:56 Last Admin: 10/11/18 16:18 Dose: 3 ml Documented by: Ascorbic Acid (Vitamin C 500 Mg Tablet) 500 mg GT DAILY [facility] Stop: 11/10/18 09:59 Last Admin: 10/15/18 09:44 Dose: 500 mg Documented by: Dextrose (Dextrose Inj 50% Syringe (25 Gm/50 Ml)) 12.5 gm IV PRN PRN; Protocol PRN Reason: FOR BG 50-69 IN ALERT PATIENT Stop: 11/06/18 12:33 Dextrose (Dextrose Inj 50% Syringe (25 Gm/50 Ml)) 25 gm IV PRN PRN; Protocol PRN Reason: PER PROTOCOL Stop: 11/06/18 12:33 Enoxaparin Sodium (Lovenox Inj 40 Mg/0.4 Ml Disp.Syrin) 40 mg SUBCUT DAILY [facility] Stop: 11/06/18 12:59 Last Admin: 10/15/18 09:48 Dose: 40 mg Documented by: Famotidine (Pepcid 20 Mg Tablet) 20 mg GT BID [facility] Stop: 11/10/18 09:59 Last Admin: 10/15/18 09:48 Dose: 20 mg Documented by: Glucagon (Glucagen Inj 1 Mg Vial) 1 mg IM PRN PRN; Protocol PRN Reason: Evaluate for BG < 70 Stop: 11/06/18 12:33 Glucose (Glutose 40% Gel 15 Gm Tube) 15 gm PO PRN PRN; Protocol PRN Reason: FOR BG 50-69 IN ALERT PATIENT Stop: 11/06/18 12:33 Glucose (Glutose 40% Gel 15 Gm Tube) 30 gm PO PRN PRN; Protocol PRN Reason: FOR BG < 50 IN ALERT PATIENT Stop: 11/06/18 12:33 Guaifenesin (Robitussin Syrup 200 Mg/10 Ml Ud Cup) 600 mg PEG Q6HP PRN PRN Reason: COUGH Stop: 11/10/18 08:17 Sodium Chloride (Nacl 0.9% 1000 Ml Iv Soln) 1,000 mls @ 125 mls/hr IV CONTINUOUS PRN PRN Reason: THIS MED IS NOT "PRN" Stop: 11/06/18 12:33 Last Admin: 10/14/18 15:27 Dose: 125 mls/hr Documented by: Ampicillin Sodium 500 mg/ (Sodium Chloride) 25 mls @ 50 mls/hr IV Q6 [facility] Stop: 10/19/18 12:59 Last Admin: 10/15/18 14:01 Dose: 50 mls/hr, 50 mls/hr Documented by: Insulin Detemir (Levemir Insulin 300 Units/3 Ml Insuln.Pen) 15 unit SUBCUT QAM [facility] Stop: 11/11/18 07:59 Last Admin: 10/15/18 09:58 Dose: Not Given Documented by: Insulin Human Lispro (Humalog Insulin 100 Unit/1 Ml 3 Ml Vial) 0 - 12 unit SUBCUT [facility]; Protocol Stop: 11/06/18 15:59 Last Admin: 10/15/18 14:00 Dose: Not Given Documented by: Isosorbide Dinitrate (Isordil Titradose 20 Mg Tablet) 20 mg GT BID [facility] Stop: 11/10/18 09:59 Last Admin: 10/15/18 09:48 Dose: 20 mg Documented by: Lactobacillus Acidophilus (Bacid 250 Mg Tablet) 500 mg PEG BID [facility] Stop: 11/10/18 09:59 Last Admin: 10/15/18 09:48 Dose: 500 mg Documented by: Levetiracetam (Keppra Oral Soln 500 Mg/5 Ml Udcup) 750 mg GT Q12 [facility] Stop: 11/10/18 09:59 Last Admin: 10/15/18 09:44 Dose: 750 mg Documented by: Lisinopril (Prinivil 5 Mg Tablet) 2.5 mg PO DAILY [facility] Stop: 11/14/18 09:59 Last Admin: 10/15/18 09:45 Dose: 2.5 mg Documented by: Multivitamins (Tab-A-Db (Multiple Vitamin) Tablet) 1 tab PO DAILY [facility] Stop: 11/10/18 09:59 Last Admin: 10/15/18 09:44 Dose: 1 tab Documented by: Nystatin (Mycostatin Topical Powder 15 Gm) 1 applic TOP BID [facility] Stop: 10/18/18 09:59 Last Admin: 10/15/18 09:58 Dose: 1 applic Documented by: Ondansetron HCl (Zofran Inj/Pf 4 Mg/2 Ml Sdv) 4 mg IV Q4HP PRN PRN Reason: FOR NAUSEA/VOMITING Stop: 11/06/18 12:28 Potassium Chloride (Kaon-Cl 20 Meq/15 Ml Udcup) 20 meq PEG DAILY [facility] Stop: 11/14/18 09:59 Last Admin: 10/15/18 09:43 Dose: 20 meq Documented by: - Allergies Allergies/Adverse Reactions: divalproex sodium [From Depakote] Allergy (Verified 06/16/18 07:54) oxycodone [Oxycodone] Adverse Reaction (Intermediate, Verified 06/16/18 07:54) agitation simvastatin [From Zocor] Adverse Reaction (Unknown, Verified 06/16/18 07:54) dysarthria Hospital Course Hospital Course: H&P: THAD JOY is a 77 year old black male patient with multiple comorbidities including history of CVA with residual hemiplegia and aphasia. Due to his aphasia and underlying dementia patient is not able to give any history. And no family members in the room during my encounter. Brief history is obtained from the ER attending note. Per ER attending notes patient brought from skilled nursing with chief complaint of fever and he also noticed to have lactic acid of 3.9. In ER his rectal temperature is 102 for which she was given Tylenol suppository. When I seen the patient, he is sleeping and does not respond to verbal stimuli. His oxygen saturation is 96% while breathing room air. His urinalysis is p ertinent to UTI. Review of system and further detailed history is unobtainable. HOSPITAL COURSE: Patient is a 77-year-old male with an extensive medical history including he miplegia, COPD, dementia, epilepsy, angina, BPH, emphysema, aphasia, type 2 diabetes, hypertension, coronary artery disease, urinary retention with a suprapubic catheter in place. Urinalysis indicative of UTI. Urine culture positive for Proteus Mirabilis and enterococcus. UTI treated with IV ampicillin. On hospital day #8 the patient's vital signs were stable, he was able to tolerate his home dose anti-HTN medications. He was deemed safe for discharge back to [facility]. He will continue taking ampicillin via his PEG tube (500mg via PEG q6h until 10/19/2018). For further information regarding this patient's hospitalization, please refer to the EMR. Physical Exam Vital Signs: Temp Pulse Resp BP Pulse Ox 98.3 F 54 L 16 110/36 L 97 10/15/18 11:34 10/15/18 14:00 10/15/18 11:34 10/15/18 11:34 10/15/18 11:34 Intake & Output 10/14/18 10/15/18 10/16/18 06:59 06:59 06:59 Intake Total 5657 6809 315 Output Total 2525 1350 825 Balance 3132 5459 -510 Weight 95 kg 93 kg Results Laboratory Results: 10/14/18 05:17 10/14/18 05:17 Impressions: Chest X-Ray 10/13/18 00:00 IMPRESSION: No acute cardiopulmonary process. Tip of the central line likely in the SVC copyright 2010 [employer]- All Rights Reserved Status: Imported from PACS Plan Discharge Plan: DISCHARGE BACK TO [facility] WITH ANTIBIOTICS FOR UTI. AMPICILLIN 500 MG VIA PEG Q6H UNTIL 10/19/2018 Time Spent: Greater than 30 Minutes
[2018-10-15 16:54] VITALS: BP 138/57
== END 2018-10-15 19:45 | DRG 698 ==
LOC: ER 08:45 → EH 12:10 → 3W 15:39
PROVIDERS: ADMIT Internal Medicine; ATTEND Internal Medicine
PROC: 02HV33Z Insertion of Infusion Device into Superior Vena Cava, Percutaneous Approach (ICD-10-PCS; principal; 2018-10-13)
DX: T83.511A Infection and inflammatory reaction due to indwelling urethral catheter, initial encounter (principal); A41.9 Sepsis, unspecified organism; I69.359 Hemiplegia and hemiparesis following cerebral infarction affecting unspecified side; J81.1 Chronic pulmonary edema; N39.0 Urinary tract infection, site not specified; Z79.4 Long term (current) use of insulin; Z79.899 Other long term (current) drug therapy; I69.320 Aphasia following cerebral infarction; Y84.6 Urinary catheterization as the cause of abnormal reaction of the patient, or of later complication, without mention of misadventure at the time of the procedure; J44.9 Chronic obstructive pulmonary disease, unspecified; G40.909 Epilepsy, unspecified, not intractable, without status epilepticus; J43.9 Emphysema, unspecified; I10 Essential (primary) hypertension; I25.10 Atherosclerotic heart disease of native coronary artery without angina pectoris; B96.4 Proteus (mirabilis) (morganii) as the cause of diseases classified elsewhere; B95.2 Enterococcus as the cause of diseases classified elsewhere; G20 Parkinson's disease; Z93.1 Gastrostomy status; E78.5 Hyperlipidemia, unspecified; F02.80 Dementia in other diseases classified elsewhere, unspecified severity, without behavioral disturbance, psychotic disturbance, mood disturbance, and anxiety; E11.9 Type 2 diabetes mellitus without complications; K21.9 Gastro-esophageal reflux disease without esophagitis; N40.1 Benign prostatic hyperplasia with lower urinary tract symptoms; R33.8 Other retention of urine; I25.2 Old myocardial infarction; Z74.01 Bed confinement status; Z87.891 Personal history of nicotine dependence
CPT/HCPCS: 36415; 71045; 80048; 80053; 81001; 82803; 82962; 83036; 83605; 85025; 85027; 85610; 87040; 87086; 87088; 87186; 87804; 93005; 93010; 96361; 96365; 99285; C1751; J0290; J0360; J0692; J0696; J1335; J1642; J1650; J1815; J1885; J3490; J7030; J7050; J7620

== ENCOUNTER 2018-11-19 22:10 | Emergency (ER) | payer OTHER, MEDICARE ==
[2018-11-19 23:01] LABS: APPEARANCE,URINE CLOUDY; BILIRUBIN,URINE NEGATIVE (NEGATIVE); GLUCOSE, URINE NEGATIVE (NEGATIVE); KETONES,URINE TRACE mg/dL (NEGATIVE); LEUKOCYTE ESTERASE,URINE MODERATE (NEGATIVE); NITRITE,URINE NEGATIVE (NEGATIVE); PROTEIN,URINE 100 mg/dL (NEGATIVE); URINE SPECIFIC GRAVITY 1.021; UROBILINOGEN,URINE NEGATIVE mg/dL (<2.0)
[2018-11-19 23:02] LABS: COLOR,URINE RED
[2018-11-19 23:04] LABS: ABSOLUTE EOSINOPHILS # (AUTO) 0.5 10^3/uL (0.0-0.6); ABSOLUTE LYMPHOCYTES (AUTO) 1.6 10^3/uL (0.5-4.7); ABSOLUTE MONOCYTES (AUTO) 0.7 10^3/uL (0.1-1.4); ALANINE AMINOTRANSFERASE 33 U/L (21-72); ALBUMIN 3.8 g/dL (3.5-5.0); ALKALINE PHOSPHATASE 147 U/L (38-126); ANION GAP 6 (5-19); ASPARTATE AMINO TRANSFERASE 28 U/L (17-59); BASOPHILS % (AUTO) 0.7 % (0-2); BILIRUBIN,DIRECT 0.2 mg/dL (0.0-0.4); BILIRUBIN,TOTAL 0.3 mg/dL (0.2-1.3); BLOOD UREA NITROGEN 47 mg/dL (7-20); CARBON DIOXIDE 31 mmol/L (22-30); CHLORIDE 102 mmol/L (98-107); EOSINOPHILS % (AUTO) 9.3 % (0-6); GLUCOSE 241 mg/dL (75-110); HEMATOCRIT 41.1 % (37.9-51.0); HEMOGLOBIN 13.7 g/dL (13.5-17.0); LYMPHOCYTES % (AUTO) 27.2 % (13-45); MEAN CORPUSCULAR HGB CONC 33.3 g/dL (32.0-36.0); MEAN CORPUSCULAR VOLUME 93 fl (80-97); MONOCYTES % (AUTO) 11.6 % (3-13); PLATELET COUNT 187 10^3/uL (150-450); POTASSIUM 5.1 mmol/L (3.6-5.0); RED BLOOD COUNT 4.41 10^6/uL (4.35-5.55); RED CELL DISTRIBUTION WIDTH 15.6 % (11.5-14.0); SEGMENTED NEUTROPHILS % (AUTO) 51.2 % (42-78); SODIUM 139.1 mmol/L (137-145); TOTAL CELLS COUNTED % (AUTO) 100 %; TOTAL PROTEIN 8.5 g/dL (6.3-8.2); WHITE BLOOD COUNT 5.8 10^3/uL (4.0-10.5)
--- NOTE | 2018-11-19 23:31 | RADIOLOGY REPORT (SQ) ---
XR CHEST 1 VIEW HISTORY: EKG changes. COMPARISON: 10/13/2018 FINDINGS: The heart size is normal. No consolidation, pleural effusion, or pneumothorax is seen. There are no acute bony findings. Interval removal of right subclavian line. IMPRESSION: No evidence of acute cardiopulmonary disease.
[2018-11-19] MEDS ORDERED: CEFTRIAXONE 1 GM/D5W RTU 1 GM/50 ML RTUPB IV ONE (23:46)
[2018-11-19] MEDS ORDERED: NORMAL SALINE 500 ML IV ONE (23:47)
--- NOTE | 2018-11-20 01:16 | ER Document Report ---
ED General - General Chief Complaint: Blood in Catheter Stated Complaint: URINARY ISSUE Time Seen by Provider: 11/19/18 23:43 Primary Care Provider: HAROON MARTIN MD [Primary Care Provider] - Follow up as needed Mode of Arrival: Wheelchair Information source: Relative - Patient is in the room with his , Outside Facility Records Notes: This is a 77-year-old female with a complicated medical history including CVA with hemiplegia, aphasia (contracted, with G-tube), COPD, chronic Vazquez. Patient had his Vazquez changed today at the rehab facility and he subsequently had some bleeding from the Vazquez catheter. He is sent in because of bleeding from the catheter. TRAVEL OUTSIDE OF THE [place] IN LAST 30 DAYS: No - HPI Onset: Just prior to arrival Onset/Duration: Gradual Quality of pain: No pain Severity: None Pain Level: Denies Associated symptoms: denies: Chest pain, Fever, Shortness of breath Exacerbated by: Denies Relieved by: Denies Similar symptoms previously: Yes Recently seen / treated by doctor: No - Related Data Allergies/Adverse Reactions: divalproex sodium [From Depakote] Allergy (Verified 06/16/18 07:54) oxycodone [Oxycodone] Adverse Reaction (Intermediate, Verified 06/16/18 07:54) agitation simvastatin [From Zocor] Adverse Reaction (Unknown, Verified 06/16/18 07:54) dysarthria Past Medical History - General Information source: Relative, Outside Facility Records - Social History Smoking Status: Unknown if Ever Smoked Cigarette use (# per day): No Chew tobacco use (# tins/day): No Frequency of alcohol use: None Drug Abuse: None Lives with: [facility]irement Family History: None, Reviewed & Not Pertinent, Other Patient has suicidal ideation: No Patient has homicidal ideation: No - Past Medical History Cardiac Medical History: Reports: Hx Heart Attack, Hx Hypercholesterolemia, Hx Hypertension Pulmonary Medical History: Reports: Hx COPD, Hx Pneumonia Neurological Medical History: Reports: Hx Cerebrovascular Accident - CVA in 2013, History of subarachnoid hemorrhage in 2016, Hx Seizures Endocrine Medical History: Reports: Hx Diabetes Mellitus Type 1, Hx Diabetes Mellitus Type 2. Denies: Hx Hyperthyroidism, Hx Hypothyroidism Renal/ Medical History: Reports: Hx Benign Prostatic Hyperplasia. Denies: Hx Peritoneal Dialysis GI Medical History: Reports: Hx Gastroesophageal Reflux Disease - PEG tube post CVA. Denies: Hx Cirrhosis, Hx Hepatitis Musculoskeletal Medical History: Reports Hx Muscle Weakness Psychiatric Medical History: Reports: Hx Dementia, Hx Depression Infectious Medical History: Denies: Hx Hepatitis Past Surgical History: Reports: Hx Abdominal Surgery - Feeding gastrostomy tube, Hx Orthopedic Surgery - Right knee surgery. Titanium jelani, left femur after accident., Other - PEG tube placed - Immunizations Hx Diphtheria, Pertussis, Tetanus Vaccination: Yes Hx Pneumococcal Vaccination: 05/25/14 Review of Systems - Review of Systems Constitutional: denies: Chills, Fever EENT: No symptoms reported Cardiovascular: No symptoms reported Respiratory: No symptoms reported Gastrointestinal: No symptoms reported Genitourinary: See HPI Male Genitourinary: No symptoms reported Musculoskeletal: No symptoms reported Skin: No symptoms reported Hematologic/Lymphatic: No symptoms reported Neurological/Psychological: No symptoms reported Physical Exam - Vital signs Vitals: Resp Pulse Ox 17 96 11/19/18 22:18 11/19/18 22:18 Notes: Physical exam: GENERAL: Patient is resting in the bed comfortably. He is nonverbal. He does not appear to be in any distress. His states that the patient is at his baseline. HEAD: Atraumatic, normocephalic. EYES: Pupils equal round and reactive to light, extraocular movements intact, sclera anicteric, conjunctiva are normal. ENT: TMs normal, nares patent, oropharynx clear without exudates. Moist mucous membranes. NECK: Normal range of motion, supple without obvious mass or JVD. LUNGS: Breath sounds clear to auscultation bilaterally and equal. No wheezes rales or rhonchi. HEART: Regular rate and rhythm without murmurs, rubs or gallops. ABDOMEN: Soft, normoactive bowel sounds. No tenderness to palpation. PEG tube in place. Genitalia: Vazquez present. Gross hematuria without blood clots. EXTREMITIES: Contracted upper extremities NEUROLOGICAL: A phasic, contracted upper extremities. She is at his baseline mental status PSYCH: Normal mood, normal affect. SKIN: Warm, Dry, normal turgor, no rashes or lesions noted. Bedside ultrasound: Contracted bladder with Vazquez present Course - Re-evaluation Re-evalutation: 11/20/18 03:33 Note: The urine seems to be clearing. There is no significant blood clots. There is no evidence of obstruction of the Vazquez. Bladder is contracted on ultrasound exam. Patient was given IV ceftriaxone more for UTI prophylaxis (given his history of urosepsis). He does have a urologist (Dr. Cisneros). We will send him home with Keflex via the PEG tube. - Vital Signs Vital signs: Temp Pulse Resp BP Pulse Ox 98.2 F 16 147/86 H 98 11/20/18 01:52 11/20/18 01:52 11/20/18 01:54 11/20/18 01:53 - Laboratory Result Diagrams: 11/19/18 22:40 11/19/18 22:40 Laboratory results interpreted by me: 11/19/18 11/19/18 11/19/18 22:40 22:40 22:40 RDW 15.6 H Eosinophils % 9.3 H Potassium 5.1 H Carbon Dioxide 31 H BUN 47 H Glucose 241 H Alkaline Phosphatase 147 H Total Protein 8.5 H Urine Protein 100 H Urine Ketones TRACE H Urine Blood LARGE H Ur Leukocyte Esterase MODERATE H Urine Ascorbic Acid 40 H Discharge - Discharge Clinical Impression: Hematuria, Status post Vazquez change Condition: Stable Disposition: HOME-SNF (ED ONLY) Additional Instructions: Note: Abdominal ultrasound showed no evidence of obstructive uropathy. The Vazquez is draining. Therefore the plan would be to take the antibiotics via the PEG tube as prescribed. Patient did receive IV ceftriaxone. Accommodation is follow-up with Dr. Cisneros (urologist at [facility]) if the bleeding continues. Prescriptions: Cephalexin Monohydrate [Keflex 500 mg Capsule] 500 mg PEG Q6H 5 Days #20 capsule Referrals: HAROON MARTIN MD [Primary Care Provider] - Follow up as needed
[2018-11-20 02:42] VITALS: BP 147/86
--- NOTE | 2018-11-20 21:02 | EKG REPORT ---
SEVERITY:- ABNORMAL ECG - SINUS RHYTHM ST ELEVATION, PROBABLE INFERIOR AND APICAL LATERAL ( aCUTE RI ) INJURY : Confirmed by: Dahlia Oliver MD 20-Nov-2018 21:01:47
== END 2018-11-20 01:50 ==
LOC: ER 22:10
DX: R31.9 Hematuria, unspecified (principal); T83.9XXA Unspecified complication of genitourinary prosthetic device, implant and graft, initial encounter; J44.9 Chronic obstructive pulmonary disease, unspecified; I10 Essential (primary) hypertension
CPT/HCPCS: 93005; 99285; 96365; 36415; 85025; 80053; 81001; 84484; 71045; 93010; J7040; J0696

== ENCOUNTER 2019-01-10 19:59 | Emergency (ER) | payer MEDICARE, OTHER ==
--- NOTE | 2019-01-10 21:17 | ER Document Report ---
ED General - General Chief Complaint: Problem with Feeding Tube Stated Complaint: FEEDING TUBE DISPLACED Time Seen by Provider: 01/10/19 20:36 Primary Care Provider: HAROON MARTIN MD [Primary Care Provider] - Follow up as needed Cannot obtain history due to: Dementia Notes: Patient is a 78-year-old male with a past medical history of profound dementia who presents via EMS due to needing a feeding tube change. Patient presents from a nursing facility, daughter at bedside noticed leaking gastric contents around the feeding tube. Nurse at the facility apparently said that the balloon was broken and the patient was subsequently transferred to the emergency department. Patient is unable to participate in history taking. No other complaints per the daughter. TRAVEL OUTSIDE OF THE [place] IN LAST 30 DAYS: No - Related Data Allergies/Adverse Reactions: divalproex sodium [From Depakote] Allergy (Verified 06/16/18 07:54) latex Allergy (Verified 01/10/19 20:19) oxycodone [Oxycodone] Adverse Reaction (Intermediate, Verified 06/16/18 07:54) agitation simvastatin [From Zocor] Adverse Reaction (Unknown, Verified 06/16/18 07:54) dysarthria Past Medical History - General Information source: Relative Cannot obtain history due to: Dementia - Social History Smoking Status: Unknown if Ever Smoked Frequency of alcohol use: None Drug Abuse: None Lives with: [facility] Family History: None, Reviewed & Not Pertinent, Other Patient has suicidal ideation: No Patient has homicidal ideation: No - Past Medical History Cardiac Medical History: Reports: Hx Heart Attack, Hx Hypercholesterolemia, Hx H ypertension Pulmonary Medical History: Reports: Hx COPD, Hx Pneumonia Neurological Medical History: Reports: Hx Cerebrovascular Accident - CVA in 2014 , History of subarachnoid hemorrhage in 2016, Hx Seizures Endocrine Medical History: Reports: Hx Diabetes Mellitus Type 1, Hx Diabetes Mellitus Type 2. Denies: Hx Hyperthyroidism, Hx Hypothyroidism Renal/ Medical History: Reports: Hx Benign Prostatic Hyperplasia. Denies: Hx Peritoneal Dialysis GI Medical History: Reports: Hx Gastroesophageal Reflux Disease - PEG tube post CVA. Denies: Hx Cirrhosis, Hx Hepatitis Musculoskeletal Medical History: Reports Hx Muscle Weakness Psychiatric Medical History: Reports: Hx Dementia, Hx Depression Infectious Medical History: Denies: Hx Hepatitis Past Surgical History: Reports: Hx Abdominal Surgery - Feeding gastrostomy tube, Hx Orthopedic Surgery - Right knee surgery. Titanium jelani, left femur after accident., Other - PEG tube placed - Immunizations Hx Diphtheria, Pertussis, Tetanus Vaccination: Yes Hx Pneumococcal Vaccination: 05/25/14 Review of Systems - Review of Systems -: Yes ROS unobtainable due to patient's medical condition Physical Exam - Vital signs Vitals: Pulse 66 01/10/19 20:19 Interpretation: Normal Notes: PHYSICAL EXAMINATION: GENERAL: Chronically ill, elderly male in no distress HEAD: Atraumatic, normocephalic. EYES: Pupils equal round and reactive to light, extraocular movements intact, sclera anicteric, conjunctiva are normal. ENT: nares patent, oropharynx clear without exudates. Moderately dry mucous membranes. NECK: Normal range of motion, supple without lymphadenopathy LUNGS: Breath sounds clear to auscultation bilaterally and equal. No wheezes rales or rhonchi. HEART: Regular rate and rhythm without murmurs ABDOMEN: Soft, nontender, normoactive bowel sounds. No guarding, no rebound. No masses appreciated. EXTREMITIES: no pitting or edema. No cyanosis. PSYCH: Nonverbal SKIN: Warm, Dry, normal turgor, G-tube site without erythema or induration Course - Re-evaluation Re-evalutation: 01/10/19 21:17 Patient presents from his nursing facility due to his G-tube falling out. Apparently the balloon became deflated and it did fall out. G-tube was replaced by nursing staff. Patient is otherwise at baseline. Cleared for discharge back to his facility. - Vital Signs Vital signs: Temp Pulse Resp BP Pulse Ox 97.6 F 64 16 158/82 H 94 01/10/19 21:58 01/10/19 21:58 01/10/19 21:58 01/10/19 21:58 01/10/19 21:58 Discharge - Discharge Clinical Impression: Gastrojejunostomy tube dislodgement Dementia Qualifiers: Dementia type: unspecified type Dementia behavioral disturbance: without behavioral disturbance Qualified Code(s): F03.90 - Unspecified dementia without behavioral disturbance Condition: Stable Disposition: HOME-SNF (ED ONLY) Additional Instructions: The G-tube has been replaced. Return for any additional concerns. Referrals: HAROON MARTIN MD [Primary Care Provider] - Follow up as needed
[2019-01-10 22:03] VITALS: BP 158/82
== END 2019-01-10 22:14 ==
LOC: ER 19:59
DX: Z43.1 Encounter for attention to gastrostomy (principal); F03.90 Unspecified dementia, unspecified severity, without behavioral disturbance, psychotic disturbance, mood disturbance, and anxiety; I10 Essential (primary) hypertension; J44.9 Chronic obstructive pulmonary disease, unspecified; E11.9 Type 2 diabetes mellitus without complications; Z88.8 Allergy status to other drugs, medicaments and biological substances; Z91.040 Latex allergy status
CPT/HCPCS: 99284

== ENCOUNTER 2019-05-04 12:04 | Inpatient (IN) | payer MEDICARE, OTHER ==
[2019-05-04] MEDS ORDERED: NORMAL SALINE 1000 ML 1,000 ML IV ONE (12:23)
[2019-05-04] MEDS ORDERED: CALCIUM GLUCONATE 1000 MG/10 ML INJ IV ONE ×2 (12:24→12:38)
[2019-05-04] MEDS ORDERED: SODIUM BICARBONATE 8.4% INJ 50 MEQ/50 ML DISP.SYRIN ONE (12:25)
[2019-05-04 12:32] LABS: ABSOLUTE EOSINOPHILS # (AUTO) 0.2 10^3/uL (0.0-0.6); ABSOLUTE LYMPHOCYTES (AUTO) 0.7 10^3/uL (0.5-4.7); ABSOLUTE MONOCYTES (AUTO) 1.6 10^3/uL (0.1-1.4); ABSOLUTE NEUT (AUTO) 10.7 10^3/uL (1.7-8.2); BASOPHILS % (AUTO) 0.2 % (0-2); EOSINOPHILS % (AUTO) 1.8 % (0-6); HEMATOCRIT 39.5 % (37.9-51.0); HEMOGLOBIN 13.1 g/dL (13.5-17.0); LYMPHOCYTES % (AUTO) 5.1 % (13-45); MEAN CORPUSCULAR HEMOGLOBIN 30.4 pg (27.0-33.4); MEAN CORPUSCULAR HGB CONC 33.2 g/dL (32.0-36.0); MEAN CORPUSCULAR VOLUME 91 fl (80-97); MONOCYTES % (AUTO) 11.9 % (3-13); PLATELET COUNT 130 10^3/uL (150-450); RED BLOOD COUNT 4.32 10^6/uL (4.35-5.55); RED CELL DISTRIBUTION WIDTH 14.6 % (11.5-14.0); TOTAL CELLS COUNTED % (AUTO) 100 %; WHITE BLOOD COUNT 13.2 10^3/uL (4.0-10.5)
[2019-05-04] MEDS ORDERED: SODIUM BICARBONATE 8.4% INJ 50 MEQ/50 ML DISP.SYRIN IV ONE ×2 (12:38→12:39)
[2019-05-04 12:41] LABS: INTERNATIONAL RATION (INR) 1.36; PROTHROMBIN TIME 16.9 SEC (11.4-15.4)
[2019-05-04 12:42] LABS: PARTIAL THROMBOPLASTIN TIME 37.5 SEC (23.5-35.8)
[2019-05-04 12:55] LABS: ALBUMIN 3.6 g/dL (3.5-5.0); ALKALINE PHOSPHATASE 156 U/L (38-126); ANION GAP 17 (5-19); ASPARTATE AMINO TRANSFERASE 54 U/L (17-59); BILIRUBIN,DIRECT 0.4 mg/dL (0.0-0.4); BILIRUBIN,TOTAL 0.5 mg/dL (0.2-1.3); CALCIUM 9.6 mg/dL (8.4-10.2); CARBON DIOXIDE 18 mmol/L (22-30); CHLORIDE 95 mmol/L (98-107); CREATINE KINASE 130 U/L (55-170); GLUCOSE 187 mg/dL (75-110); TOTAL PROTEIN 7.6 g/dL (6.3-8.2)
[2019-05-04 13:02] LABS: BLOOD UREA NITROGEN 154 mg/dL (7-20); POTASSIUM 8.8 mmol/L (3.6-5.0)
[2019-05-04 13:06] LABS: CREATINE KINASE MB 1.59 ng/mL (<4.55); TROPONIN I 0.016 ng/mL
[2019-05-04] MEDS ORDERED: INSULIN REG, HUMAN 100 UNIT/ML 3 ML VIAL (PYX) IV ONE (13:13)
[2019-05-04] MEDS ORDERED: DEXTROSE 50%-WATER 25 GM/50 ML DISP.SYRIN IV ONE (13:13)
--- NOTE | 2019-05-04 13:18 | RADIOLOGY REPORT (SQ) ---
EXAM DESCRIPTION: CHEST SINGLE VIEW COMPLETED DATE/TIME: 05/04/2019 1:01 pm REASON FOR STUDY: SOB COMPARISON: 11/19/2018 NUMBER OF VIEWS: One view. TECHNIQUE: Single frontal radiographic view of the chest acquired. LIMITATIONS: Artifact from the patient's arms which could not be moved. FINDINGS: LUNGS AND PLEURA: No opacities, masses or pneumothorax. No pleural effusion. MEDIASTINUM AND HILAR STRUCTURES: No masses. Contour normal. HEART AND VASCULAR STRUCTURES: Heart normal in size. Normal vasculature. BONES: No acute findings. HARDWARE: None in the chest. OTHER: No other significant finding. IMPRESSION: Somewhat limited study. No definite consolidation or pulmonary nodules. TECHNICAL DOCUMENTATION: JOB ID: [id number] [employer] All Rights Reserved Reading location - IP/workstation name: [email or web address]
--- NOTE | 2019-05-04 14:25 | ER Document Report ---
ED Respiratory Problem - General Chief Complaint: Respiratory Distress Stated Complaint: SHORTNESS OF BREATH Time Seen by Provider: 05/04/19 12:18 Primary Care Provider: HAROON MARTIN MD [Primary Care Provider] - Follow up as needed Notes: 78-year-old male was brought in from the senior living for increased respiratory rate. Patient has a history of large stroke is contracted and is nonverbal. The patient was noticed to be breathing a little faster than normal this morning. Therefore they sent him in. It is difficult to tell what is different because he is nonverbal at times. The patient was sent in via EMS for increased respiratory rate. EMS noticed that the EKG looked very strange and had peaked T waves and widening of the QRS complex. Patient cannot add any history whatsoever. TRAVEL OUTSIDE OF THE [place] IN LAST 30 DAYS: No - Related Data Allergies/Adverse Reactions: divalproex sodium [From Depakote] Allergy (Verified 06/16/18 07:54) latex Allergy (Verified 01/10/19 20:19) oxycodone [Oxycodone] Adverse Reaction (Intermediate, Verified 06/16/18 07:54) agitation simvastatin [From Zocor] Adverse Reaction (Unknown, Verified 06/16/18 07:54) dysarthria Past Medical History - Social History Smoking Status: Unknown if Ever Smoked Family History: None, Reviewed & Not Pertinent, Other Patient has suicidal ideation: No Patient has homicidal ideation: No - Past Medical History Cardiac Medical History: Reports: Hx Heart Attack, Hx Hypercholesterolemia, Hx Hypertension Pulmonary Medical History: Reports: Hx COPD, Hx Pneumonia Neurological Medical History: Reports: Hx Cerebrovascular Accident - CVA in 2013, History of subarachnoid hemorrhage in 2016, Hx Seizures Endocrine Medical History: Reports: Hx Diabetes Mellitus Type 1, Hx Diabetes Mellitus Type 2. Denies: Hx Hyperthyroidism, Hx Hypothyroidism Renal/ Medical History: Reports: Hx Benign Prostatic Hyperplasia. Denies: Hx Peritoneal Dialysis GI Medical History: Reports: Hx Gastroesophageal Reflux Disease - PEG tube post CVA. Denies: Hx Cirrhosis, Hx Hepatitis Musculoskeletal Medical History: Reports Hx Muscle Weakness Psychiatric Medical History: Reports: Hx Dementia, Hx Depression Infectious Medical History: Denies: Hx Hepatitis Past Surgical History: Reports: Hx Abdominal Surgery - Feeding gastrostomy tube, Hx Orthopedic Surgery - Right knee surgery. Titanium jealni, left femur after accident., Other - PEG tube placed - Immunizations Hx Diphtheria, Pertussis, Tetanus Vaccination: Yes Hx Pneumococcal Vaccination: 05/25/14 Review of Systems - Review of Systems Notes: Patient nonverbal most history was obtained via daughter, senior living, EMS Constitutional: denies: Fever Gastrointestinal: denies: Diarrhea, Vomiting -: Yes All other systems reviewed and negative Physical Exam - Vital signs Vitals: Resp Pulse Ox 32 H 97 05/04/19 12:12 05/04/19 12:12 - Notes Notes: GENERAL_APPEARANCE: Chronically ill-appearing, contracted VITALS: reviewed, see vital signs table. HEAD: no_swellingon the head. EYES: PERRL, EOMI, conjunctiva_clear. NOSE: no_nasal_discharge. MOUTH: Dry mucous membranes THROAT: Dry throat, no_airway_obstruction. no_lymphadenopathy NECK: supple, no_neck_tenderness, (-)thyromegaly. BACK: no_back_tenderness. CHEST_WALL: no_chest_tenderness. LUNGS: no_wheezing, fine crackles, no_rhonchi, tachypnea, poor air exchange bilateral. HEART: normal_rate, normal_rhythm, normal_S1, normal_S2, (-)S3, (-)S4, no_murmur, no_rub. ABDOMEN: Tension of the abdomen PEG tube present no rebound or guarding EXTREMITIES: Bilateral upper extremity contracture with braces, bilateral lower extremity booties. Attracted SKIN: Skin turgor greater than 5 seconds, warm and dry MENTAL_STATUS: Nonverbal will moan a bit with painful stimuli NEURO: Patient very spastic bilateral upper and lower extremities nerves appear intact. Unable to test any further Course - Re-evaluation Re-evalutation: 05/04/19 14:23 78-year-old male presents with acute renal failure creatinine is 6.6 this summer creatinine was 0.64. The patient looks as if he is not getting any free water in his PEG tube clinically he looks very dry. The patient very poor respiratory effort and tachypnea likely due to his acidosis there is very fine crackles but no significant edema patient was placed on BiPAP. Patient was given calcium, bicarb dextrose insulin for hyperkalemia. EKG does show peaking of T waves mild QRS widening. The patient's condition and chronic medical condition is poor. He is nonverbal he is very poor quality of life. The daughter is present. I have spoken with her she does not want to put him through dialysis. However she is not ready to make him DNR yet. I do not think he is a candidate for DNR just because of his multiple medical problems and poor condition I think we would do little to improve his life likely subject him to a poor quality of life. The patient also is very much dehydrated with elevated BUN and creatinine I think he would respond well to fluids. I will speak with nephrology Dr. Bar in ICU. 05/04/19 15:[address] Bar. Dr. Bar agrees that the patient is likely not a candidate for dialysis. His quality of life is already very poor and this would likely provide him little benefit and have considerable medical futility. He will see him in the unit or the ER. I have spoke with the intensive care physician. He is come to the ER and seen the patient. He will continue fluid resuscitating the patient which is likely the majority of the problem. Look for any kind of underlying infection. We spoke with the daughter and she is in agreement. She is not ready to make an full DNR yet but really does not favor the idea of dialysis or any kind of ventilator support. We will speak with her and continue to see how he does on fluids. Patient will be admitted to the intensive care unit. - Vital Signs Vital signs: Temp Pulse Resp BP Pulse Ox 98.3 F 100 28 H 126/74 H 100 05/04/19 12:15 05/04/19 12:15 05/04/19 15:01 05/04/19 15:01 05/04/19 15:01 - Laboratory Result Diagrams: 05/04/19 12:15 05/04/19 12:15 Laboratory results interpreted by me: 05/04/19 05/04/19 05/04/19 12:15 12:15 12:15 WBC 13.2 H RBC 4.32 L Hgb 13.1 L RDW 14.6 H Plt Count 130 L Lymph % (Auto) 5.1 L Absolute Neuts (auto) 10.7 H Absolute Monos (auto) 1.6 H Seg Neutrophils % 81.0 H PT 16.9 H APTT 37.5 H Sodium 130.0 L Potassium 8.8 H* Chloride 95 L Carbon Dioxide 18 L BUN 154 H Creatinine 6.66 H Est GFR ( Amer) 10 L Est GFR (MDRD) Non-Af 8 L Glucose 187 H Alkaline Phosphatase 156 H NT-Pro-B Natriuret Pep 05/04/19 12:15 WBC RBC Hgb RDW Plt Count Lymph % (Auto) Absolute Neuts (auto) Absolute Monos (auto) Seg Neutrophils % PT APTT Sodium Potassium Chloride Carbon Dioxide BUN Creatinine Est GFR ( Amer) Est GFR (MDRD) Non-Af Glucose Alkaline Phosphatase NT-Pro-B Natriuret Pep 3240 H - Diagnostic Test Radiology reviewed: Reports reviewed Radiology results interpreted by me: 05/04/19 15:40 Chest X-Ray 05/04/19 12:18 IMPRESSION: Somewhat limited study. No definite consolidation or pulmonary nodules. Critical Care Note - Critical Care Note Total time excluding time spent on procedures (mins): 45 Discharge - Discharge Clinical Impression: Hyperkalemia Acute renal failure Qualifiers: Acute renal failure type: with other specified pathological lesion Qualified Code(s): N17.8 - Other acute kidney failure Condition: Critical Disposition: ADMITTED INPATIENT Admitting Provider: ICU DOCTOR - Augie ? Unit Admitted: ICU Referrals: HAROON MARTIN MD [Primary Care Provider] - Follow up as needed
[2019-05-04] MEDS ORDERED: ACETAMINOPHEN 650 MG SUPP.RECT PR PRN (15:54)
[2019-05-04] MEDS ORDERED: SODIUM POLYSTYRENE SULFONATE 15 GM/60 ML GT ONE (17:00)
[2019-05-04 17:06] LABS: ANION GAP 16 (5-19); CALCIUM 9.4 mg/dL (8.4-10.2); CARBON DIOXIDE 21 mmol/L (22-30); CHLORIDE 94 mmol/L (98-107); GLUCOSE 235 mg/dL (75-110)
[2019-05-04 17:19] LABS: BLOOD UREA NITROGEN 150 mg/dL (7-20)
[2019-05-04 17:21] LABS: POTASSIUM 8.6 mmol/L (3.6-5.0)
[2019-05-04] MEDS ORDERED: VANCOMYCIN HCL INJ 1000 MG VIAL IV ONE (18:08)
[2019-05-04 18:59] LABS: APPEARANCE,URINE TURBID; BILIRUBIN,URINE NEGATIVE (NEGATIVE); COLOR,URINE YELLOW; GLUCOSE, URINE NEGATIVE (NEGATIVE); KETONES,URINE NEGATIVE (NEGATIVE); LEUKOCYTE ESTERASE,URINE MODERATE (NEGATIVE); NITRITE,URINE NEGATIVE (NEGATIVE); PROTEIN,URINE >=500 mg/dL (NEGATIVE); URINE SPECIFIC GRAVITY 1.012; UROBILINOGEN,URINE NEGATIVE mg/dL (<2.0)
[2019-05-04] MEDS ORDERED: VANCOMYCIN HCL 1,500 MG in DEXTROSE 5%-WATER 250 ML IV ONE (19:00)
[2019-05-04] MEDS: HEPARIN SOD (PORCINE) 5,000 UNIT/ML 1 ML VIAL SUBCUT SCH ×2 (19:02→19:22)
[2019-05-04] MEDS: FAMOTIDINE INJ/PF 20 MG/2 ML SDV IV SCH ×2 (19:02→19:29)
--- NOTE | 2019-05-04 19:03 | Operative Report ---
Bedside Procedure - History of Present Illness History of Present Illness: Patient presents with acute renal failure likely due to urosesis and obstucted rios catheter. Indication for Procedure: acute renal failure Date: 05/04/19 Surgeon: TERRY KING - Central Line Right Femoral Consent obtained: No - It was discussed with the daughter in the ED and she gave verbal consent. Central line pre-insertion: Chloraprep applied Central line lumen type: Triple Anesthetic type: 2% Lidocaine mL's of anesthesia: 5 Ultrasound guided: Yes Line secured with sutures: Yes Central line post-insertion: Blood return from lumens, Biopatch applied, Sutured, Sterile dressing applied Number of attempts: 3 Notes: 05/04/19 18:57 The patient was draped and provider gowned. The area was cleaned. The right femrral vein was visualized with US. it was difficult to insert as the veinlay underneath the artery tpo acertain extent. Nevertheless, the vein was cannulated and there was goood blood return. Seldinger technique appled using a guidewire. The ports cornelia blood well. The line was sutured in place. I instructed the nurse to use the line.
--- NOTE | 2019-05-04 19:07 | PDOC PROGRESS REPORT ---
Subjective Progress Note for:: 05/04/19 Subjective:: The patient developed acute renal failure. The patient has a longstanding suprapubic catheter. The catheter appeared to be obstructed and could not be flushed. I replaced the catheter with new 22G rios. The ballon was inflated with about 20cc of saline and appeared to be secure. Immediately. there was excretion of 250 purulent material after which the urine started to clear. Reason For Visit: SEPSIS,ACUTE KIDNEY FAILURE,HYPERKALEMIA Physical Exam Vital Signs: Temp Pulse Resp BP Pulse Ox 98.7 F 77 29 H 110/72 100 05/04/19 17:00 05/04/19 18:00 05/04/19 18:00 05/04/19 18:00 05/04/19 18:00 Intake & Output 05/03/19 05/04/19 05/05/19 06:59 06:59 06:59 Intake Total 1000 Output Total 300 Balance 700 Weight 92.034 kg Results Laboratory Results: 05/04/19 12:15 05/04/19 05/04/19 05/04/19 12:15 12:15 15:17 WBC 13.2 H RBC 4.32 L Hgb 13.1 L Hct 39.5 MCV 91 MCH 30.4 MCHC 33.2 RDW 14.6 H Plt Count 130 L Seg Neutrophils % 81.0 H Carbonic Acid Cancelled HCO3/H2CO3 Ratio Cancelled ABG pH Cancelled ABG pCO2 Cancelled ABG pO2 Cancelled ABG HCO3 Cancelled ABG O2 Saturation Cancelled ABG Base Excess Cancelled FiO2 Cancelled Sodium 130.0 L Potassium 8.8 H* Chloride 95 L Carbon Dioxide 18 L Anion Gap 17 BUN 154 H Creatinine 6.66 H Est GFR ( Amer) 10 L Glucose 187 H Calcium 9.6 Total Bilirubin 0.5 AST 54 Alkaline Phosphatase 156 H Total Protein 7.6 Albumin 3.6 Urine Color Urine Appearance Urine pH Ur Specific [place] Urine Protein Urine Glucose (UA) Urine Ketones Urine Blood Urine Nitrite Ur Leukocyte Esterase Urine WBC (Auto) Urine RBC (Auto) 05/04/19 05/04/19 16:25 18:15 WBC RBC Hgb Hct MCV MCH MCHC RDW Plt Count Seg Neutrophils % Carbonic Acid HCO3/H2CO3 Ratio ABG pH ABG pCO2 ABG pO2 ABG HCO3 ABG O2 Saturation ABG Base Excess FiO2 Sodium 131.4 L Potassium 8.6 H* Chloride 94 L Carbon Dioxide 21 L Anion Gap 16 BUN 150 H Creatinine 6.44 H Est GFR ( Amer) 10 L Glucose 235 H Calcium 9.4 Total Bilirubin AST Alkaline Phosphatase Total Protein Albumin Urine Color YELLOW Urine Appearance TURBID Urine pH 7.0 Ur Specific [place] 1.012 Urine Protein >=500 H Urine Glucose (UA) NEGATIVE Urine Ketones NEGATIVE Urine Blood MODERATE H Urine Nitrite NEGATIVE Ur Leukocyte Esterase MODERATE H Urine WBC (Auto) >182 Urine RBC (Auto) >182 05/04/19 05/04/19 12:15 12:15 Creatine Kinase 130 CK-MB (CK-2) 1.59 Troponin I 0.016 NT-Pro-B Natriuret Pep 3240 H Impressions: Chest X-Ray 05/04/19 12:18 IMPRESSION: Somewhat limited study. No definite consolidation or pulmonary nodules.
[2019-05-04 19:08] LABS: ANION GAP 12 (5-19); CALCIUM 9.2 mg/dL (8.4-10.2); CARBON DIOXIDE 22 mmol/L (22-30); CHLORIDE 98 mmol/L (98-107); GLUCOSE 177 mg/dL (75-110)
[2019-05-04 19:16] LABS: BLOOD UREA NITROGEN 148 mg/dL (7-20)
[2019-05-04 19:17] LABS: POTASSIUM 7.8 mmol/L (3.6-5.0)
[2019-05-04] MEDS ORDERED: SODIUM POLYSTYRENE SULFONATE 15 GM/60 ML ONE (19:18)
--- NOTE | 2019-05-04 19:51 | CRITICAL CARE ADMISSION REPORT ---
HPI Date:: 05/04/19 Time:: 04:00 Reason for ICU Reason:: Hyperkalemia, Acute renal failure, urosepsis HPI: Patient presents with acute renal failure likely due to urosepsis and obstucted rios catheter. The patient is a resident at a skilled nursing. He has apparently not been well thepast few days according to hsi daughter. He has been coughing and regurgitating and not tolerating his tube feeds. Her became increaisingly obtunded today. His urine output had significantly dropped off the past few days as well. The patient was found to be in Acute Renal Failure in the ED with a potassium of 8.8, BUN >150 and creatinine of over 6. His creatinine had been normal a few months ago. He has history of recurrent UTIs The patient has had a series of large CVAs which have rendered himaphasic andimmobile. [facility]. He nods and appear to recognize his daughter when she visits. He is flexed and contracted ain his upper limbs. I was called to the ED to admit the patient. The EDv usician had placed a call to Dr. Yosvany [email or web address]. - Diagnosis/Plan (1) Acute renal failure Qualifiers: Acute renal failure type: with other specified pathological lesion Qual ified Code(s): N17.8 - Other acute kidney failure Past Medical History Cardiac Medical History: Reports: Myocardial Infarction, Hyperlipidema, Hypertension Pulmonary Medical History: Reports: Chronic Obstructive Pulmonary Disease (COPD), Pneumonia Neurological Medical History: Reports: Ischemic CVA, Seizures Endocrine Medical History: Reports: Diabetes Mellitus Type 1, Diabetes Mellitus Type 2 Denies: Hyperthyroidism, Hypothyroidism Malignancy Medical History: Reports: None GI Medical History: Reports: Gastroesophageal Reflux Disease - PEG tube post CVA Denies: Cirrhosis, Hepatitis Psychiatric Medical History: Reports: None, Dementia, Depression Hematology: Reports: Anemia Infectious History Note: Patient has a history of recurrent UTIs at times requiring hoospitlaization. Past Surgical History Past Surgical History: Reports: Orthopedic Surgery - Right knee surgery. Titanium jelani, left femur after accident., Other - PEG tube placed Social/Family History - Social History Lives with: Longterm Smoking Status: Former Smoker Frequency of Alcohol Use: None Hx Recreational Drug Use: No Drugs: None Hx Prescription Drug Abuse: No - Medication/Allergies Home Medications: Ascorbic Acid [Vitamin C 500 mg Tablet] 500 mg GT DAILY 05/04/19 Cranberry Extract [Cranberry 250 mg Tablet] 500 mg GT DAILY 05/04/19 Famotidine [Pepcid 20 mg Tablet] 20 mg GT BID 05/04/19 Guaifenesin [Robitussin Syrup 200 mg/10 ml Ud Cup] 30 ml GT Q6HP PRN 05/04/19 Insulin Detemir [Levemir] 15 unit SQ QAM 05/04/19 Insulin Lispro [Humalog Insulin 100 Unit/1 ml 3 ml Vial] 0 unit SUBCUT .SLD SCALE 05/04/19 Ipratropium/Albuterol Sulfate [Duoneb 3 ml Ampul] 3 ml NEB RTQ2HP PRN 05/04/19 Ipratropium/Albuterol Sulfate [Duoneb 3 ml Ampul] 3 ml NEB RTQ6HP PRN 05/04/19 Isosorbide Dinitrate [Isordil Titradose 20 Mg Tablet] 20 mg GT BID 05/04/19 Levetiracetam [Spritam] 750 mg GT Q12 05/04/19 Lisinopril [Prinivil 2.5 mg Tablet] 2.5 mg GT DAILY 05/04/19 Metoprolol Tartrate [Lopressor 25 mg Tablet] 25 mg GT Q12 05/04/19 Multivit-Minerals/Ferrous Gluc [Certa Db Liquid] 9 mg GT DAILY 05/04/19 Ondansetron HCl [Zofran 4 mg Tablet] 4 mg GT Q8HP PRN 05/04/19 Potassium Chloride [Potassium Chloride 20 Meq Packet] 20 meq GT DAILY 05/04/19 Allergies/Adverse Reactions: divalproex sodium [From Depakote] Allergy (Verified 06/16/18 07:54) latex Allergy (Verified 01/10/19 20:19) oxycodone [Oxycodone] Adverse Reaction (Intermediate, Verified 06/16/18 07:54) agitation simvastatin [From Zocor] Adverse Reaction (Unknown, Verified 06/16/18 07:54) dysarthria Review of Systems Constitutional: ABSENT: chills, fever(s), headache(s), weight gain, weight loss Eyes: ABSENT: visual disturbances Ears: ABSENT: hearing changes Cardiovascular: ABSENT: chest pain, dyspnea on exertion, edema, orthropnea, palpitations Respiratory: ABSENT: cough, hemoptysis Gastrointestinal: ABSENT: abdominal pain, constipation, diarrhea, hematemesis, hematochezia, nausea, vomiting Genitourinary: ABSENT: dysuria, hematuria Musculoskeletal: ABSENT: joint swelling Integumentary: ABSENT: rash, wounds Neurological: ABSENT: abnormal gait, abnormal speech, confusion, dizziness, focal weakness, syncope Psychiatric: ABSENT: anxiety, depression, homidical ideation, suicidal ideation Endocrine: ABSENT: cold intolerance, heat intolerance, polydipsia, polyuria Hematologic/Lymphatic: ABSENT: easy bleeding, easy bruising Physical Exam Vital Signs: Temp Pulse Resp BP Pulse Ox 98.7 F 77 18 124/80 100 05/04/19 17:00 05/04/19 18:00 05/04/19 19:00 05/04/19 18:47 05/04/19 19:00 Intake & Output 05/03/19 05/04/19 05/05/19 06:59 06:59 06:59 Intake Total 1000 Output Total 300 Balance 700 Weight 92.034 kg Weight/Height Weight 92.034 kg Height 5 ft 6 in Exam: Patientappears to have some respiratory distress and is currently on a BIPAP unit. He appears bith acutely and chronically ill. He is non-verbal. His eyes are closed. Head exam: PRESENT: atraumatic, normocephalic Eye exam: PRESENT: conjunctiva pink Mouth exam: PRESENT: dry mucosa - His neck is rigid with lordotic curvature Neck exam: ABSENT: tenderness Respiratory exam: PRESENT: accessory muscle use, decreased breath sounds, other - His respiratioons appears to be a bit labored Cardiovascular exam: PRESENT: RRR, +S1, +S2 Pulses: PRESENT: normal carotid pulses, normal dorsalis pedis pul GI/Abdominal exam: PRESENT: diminished bowel sounds, soft. ABSENT: guarding, organolmegaly Rectal exam: PRESENT: deferred Gentrourinary exam: PRESENT: indwelling catheter Extremities exam: ABSENT: calf tenderness Neurological exam: PRESENT: other - Patient is aphasic. he is flexed and contracted in his upper extreemities and has extension with plantar flexion in the feet. he is not moving. He does not open his eyes. Skin exam: PRESENT: dry, warm Laboratory/Radiographs Laboratory Results: 05/04/19 12:15 09/10/19 18:34 05/04/19 05/04/19 05/04/19 12:15 12:15 15:17 WBC 13.2 H RBC 4.32 L Hgb 13.1 L Hct 39.5 MCV 91 MCH 30.4 MCHC 33.2 RDW 14.6 H Plt Count 130 L Seg Neutrophils % 81.0 H Carbonic Acid Cancelled HCO3/H2CO3 Ratio Cancelled ABG pH Cancelled ABG pCO2 Cancelled ABG pO2 Cancelled ABG HCO3 Cancelled ABG O2 Saturation Cancelled ABG Base Excess Cancelled FiO2 Cancelled Sodium 130.0 L Potassium 8.8 H* Chloride 95 L Carbon Dioxide 18 L Anion Gap 17 BUN 154 H Creatinine 6.66 H Est GFR ( Amer) 10 L Glucose 187 H Calcium 9.6 Total Bilirubin 0.5 AST 54 Alkaline Phosphatase 156 H Total Protein 7.6 Albumin 3.6 Urine Color Urine Appearance Urine pH Ur Specific [place] Urine Protein Urine Glucose (UA) Urine Ketones Urine Blood Urine Nitrite Ur Leukocyte Esterase Urine WBC (Auto) Urine RBC (Auto) 05/04/19 05/04/19 05/04/19 16:25 18:15 18:34 WBC RBC Hgb Hct MCV MCH MCHC RDW Plt Count Seg Neutrophils % Carbonic Acid HCO3/H2CO3 Ratio ABG pH ABG pCO2 ABG pO2 ABG HCO3 ABG O2 Saturation ABG Base Excess FiO2 Sodium 131.4 L 132.1 L Potassium 8.6 H* 7.8 H* Chloride 94 L 98 Carbon Dioxide 21 L 22 Anion Gap 16 12 BUN 150 H 148 H Creatinine 6.44 H 6.15 H Est GFR ( Amer) 10 L 11 L Glucose 235 H 177 H Calcium 9.4 9.2 Total Bilirubin AST Alkaline Phosphatase Total Protein Albumin Urine Color YELLOW Urine Appearance TURBID Urine pH 7.0 Ur Specific [place] 1.012 Urine Protein >=500 H Urine Glucose (UA) NEGATIVE Urine Ketones NEGATIVE Urine Blood MODERATE H Urine Nitrite NEGATIVE Ur Leukocyte Esterase MODERATE H Urine WBC (Auto) >182 Urine RBC (Auto) >182 05/04/19 05/04/19 12:15 12:15 Creatine Kinase 130 CK-MB (CK-2) 1.59 Troponin I 0.016 NT-Pro-B Natriuret Pep 3240 H Impressions: Chest X-Ray 05/04/19 12:18 IMPRESSION: Somewhat limited study. No definite consolidation or pulmonary nodules. Critical Time -: The care of a critically ill patient is dynamic. This note represents a static moment in the admission process. orders and treatments may be given simulataneously and urgentl, and time is not payroll representative of the treatment process. This patient requires Critical Care secondary to life threating organ or limb d ysfunction. Without the need for Critical Care services, the patient is at risk for increasid mortality and morbidity. Assessment & Plan - Diagnosis (1) Acute renal failure Qualifiers: Acute renal failure type: with other specified pathological lesion Qualified Code(s): N17.8 - Other acute kidney failure Is this a current diagnosis for this admission?: Yes Plan: I changed the patients' suprpubic cathter when i found it to be obstruceted. A large amount of purulent urine cam out inmediately under some pressure. Since than his urne has largely cleared and his output is very good at the present time. We are hpoiping that he may avoid dialysis. SDr. mao was asked to see thepatient. Unfortunatley, dialysis cannot be done at this time. If for some reason his potassium is not going down he may require transfer for emergent dialysis. (2) Hyperkalemia Plan: The patient presents with acute renal failure with obstructive uropathy and hyperkalemia. His potassiumn is being trended andappers to be ccoming down in thepast hour. His QRS which had been very wide has narrowed as well. (3) Acute encephalopathy Is this a current diagnosis for this admission?: Yes Plan: The patient is encephalopathic on the basis of his acute uremiaand sepsis. Even in the best of cirtcumstances he does not speak. He is permanently flexed and contracted inhis upper extremites and thelwer extremites are stiff. (5) Full code status Is this a current diagnosis for this admission?: Yes Plan: I have had extensive conversations with the patient;'s daughter. the patient is presently a fuull code. he had expressed his desire for aggressive treatment in the past. Certainly, he does not appear to be suitabkle candidate for intermediate dialysis given his multiple serious morbidities. - Time Time Spent: Greater than 70 Minutes
[2019-05-04] MEDS ORDERED: PIPERACILLIN SODIUM/TAZOBACTAM 2.25 GM in NORMAL SALINE 50 ML IV ONE (20:00)
--- NOTE | 2019-05-04 20:25 | PDOC CONSULTATION ---
Consultation Consult Date: 05/04/19 Provider Consulted: Srikanth CARTWRIGHT Consult reason:: MAI with severe hyperkalemia with EKG changes. 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 History was gathered from his daughter who filled me in besides what I have realized from other physicians and nurses who are looking after the patient. Patient was admitted and in September of this year with urosepsis and treated successfully and discharged back to the residential. I was called by the ER physician about this patient being in the ER with MAI and a potassium of 8+ with EKG changes. However he had talked with the patient's daughter who opined that she did not want any form of renal replacements but would want to have everything else done including CPR and intubation. Patient was then transferred to the ICU where I saw the patient. Patient looks very moribund and not responsive. He is being evaluated by Dr. Rivera the senior engineering manager. He came to realize that his suprapubic catheter was blocked and needed to be replaced. Once he did that he got about 200+ cc of purulent pus looking urine out of his bladder. His blood pressure has been systematically dropping down since his evaluations in the ER from a 160+ to low 100 systolic. Patient was treated conservatively in the ER with insulin/dextrose, IV calcium and and Kayexalate. Patient was dehydrated as well and had difficulties getting an IV line. The senior engineering manager had to place a right femoral axis to start him on IV fluids in the ICU. I had a long extensive discussion with the patient's daughter. She states that the patient at the residential is able to interact with her and is able to sit up in a wheelchair and be wheeled around otherwise. He has had no problems apparently according to the daughter since his discharge from this hospital September with urosepsis. She wants everything to be done for her father including dialysis for the short-term if that would fixes his crisis situation. Past Medical History Cardiac Medical History: Reports: Hyperlipidemia, Myocardial Infarction Pulmonary Medical History: Reports: Chronic Obstructive Pulmonary Disease (COPD), Pneumonia Neurological Medical History: Reports: Ischemic CVA, Seizures Neurological History Note: Story of previous CVA with severe fixed neurological deficits, contractures, aphasia. Endocrine Medical History: Reports: Diabetes Mellitus Type 2 Denies: Hyperthyroidism, Hypothyroidism Renal/ Medical History: Reports: Benign Prostatic Hyperplasia Malignancy Medical History: Reports: None GI Medical History: Reports: Gastroesophageal Reflux Disease - PEG tube post CVA Denies: Cirrhosis, Hepatitis Psychiatric Medical History: Reports: None, Dementia, Depression Past Surgical History Past Surgical History: Reports: Orthopedic Surgery - Right knee surgery. Titanium jelani, left femur after accident., Other - PEG tube placed Social History Lives with: Alf Smoking Status: Former Smoker Frequency of Alcohol Use: None Hx Recreational Drug Use: No Drugs: None Hx Prescription Drug Abuse: No - Advance Directive Resuscitation Status: Full Code Family History Parental Family History Reviewed: No Children Family History Reviewed: No Sibling(s) Family History Reviewed.: No Medication/Allergy Home Medications: Ascorbic Acid [Vitamin C 500 mg Tablet] 500 mg GT DAILY 05/04/19 Cranberry Extract [Cranberry 250 mg Tablet] 500 mg GT DAILY 05/04/19 Famotidine [Pepcid 20 mg Tablet] 20 mg GT BID 05/04/19 Guaifenesin [Robitussin Syrup 200 mg/10 ml Ud Cup] 30 ml GT Q6HP PRN 05/04/19 Insulin Detemir [Levemir] 15 unit SQ QAM 05/04/19 Insulin Lispro [Humalog Insulin 100 Unit/1 ml 3 ml Vial] 0 unit SUBCUT .SLD SCALE 05/04/19 Ipratropium/Albuterol Sulfate [Duoneb 3 ml Ampul] 3 ml NEB RTQ2HP PRN 05/04/19 Ipratropium/Albuterol Sulfate [Duoneb 3 ml Ampul] 3 ml NEB RTQ6HP PRN 05/04/19 Isosorbide Dinitrate [Isordil Titradose 20 Mg Tablet] 20 mg GT BID 05/04/19 Levetiracetam [Spritam] 750 mg GT Q12 05/04/19 Lisinopril [Prinivil 2.5 mg Tablet] 2.5 mg GT DAILY 05/04/19 Metoprolol Tartrate [Lopressor 25 mg Tablet] 25 mg GT Q12 05/04/19 Multivit-Minerals/Ferrous Gluc [Certa Db Liquid] 9 mg GT DAILY 05/04/19 Ondansetron HCl [Zofran 4 mg Tablet] 4 mg GT Q8HP PRN 05/04/19 Potassium Chloride [Potassium Chloride 20 Meq Packet] 20 meq GT DAILY 05/04/19 Allergies/Adverse Reactions: divalproex sodium [From Depakote] Allergy (Verified 06/16/18 07:54) latex Allergy (Verified 01/10/19 20:19) oxycodone [Oxycodone] Adverse Reaction (Intermediate, Verified 06/16/18 07:54) agitation simvastatin [From Zocor] Adverse Reaction (Unknown, Verified 06/16/18 07:54) dysarthria Review of Systems ROS unobtainable: Due to mental status Physical Exam Vital Signs: Temp Pulse Resp BP Pulse Ox 98.7 F 77 18 124/80 100 05/04/19 17:00 05/04/19 18:00 05/04/19 19:00 05/04/19 18:47 05/04/19 19:00 Intake & Output 05/03/19 05/04/19 05/05/19 06:59 06:59 06:59 Intake Total 1000 Output Total 300 Balance 700 Weight 92.034 kg General appearance: PRESENT: disheveled Exam: Patient looks very feeble and debilitated with fixed contractures and unres ponsive to verbal commands. Eye exam: PRESENT: EOMI, PERRLA. ABSENT: scleral icterus Ear exam: PRESENT: normal external ear exam Mouth exam: PRESENT: neck supple. ABSENT: moist Neck exam: ABSENT: lymphadenopathy, meningismus, tenderness Respiratory exam: PRESENT: clear to auscultation yokasta, crackles - Scattered., rhonchi - Scattered. Cardiovascular exam: PRESENT: +S1, +S2 GI/Abdominal exam: PRESENT: normal bowel sounds, soft. ABSENT: organomegaly, tenderness Extremities exam: ABSENT: pedal edema Neurological exam: PRESENT: altered, motor sensory deficit, other - Patient is got residual deficits from previous CVA resulting in fixed contractures and aphasia and unable to interact. Skin exam: ABSENT: erythema, mottled, rash Results Laboratory Results: 05/04/19 12:15 05/04/19 18:34 05/04/19 05/04/19 05/04/19 12:15 12:15 15:17 WBC 13.2 H RBC 4.32 L Hgb 13.1 L Hct 39.5 MCV 91 MCH 30.4 MCHC 33.2 RDW 14.6 H Plt Count 130 L Seg Neutrophils % 81.0 H Carbonic Acid Cancelled HCO3/H2CO3 Ratio Cancelled ABG pH Cancelled ABG pCO2 Cancelled ABG pO2 Cancelled ABG HCO3 Cancelled ABG O2 Saturation Cancelled ABG Base Excess Cancelled FiO2 Cancelled Sodium 130.0 L Potassium 8.8 H* Chloride 95 L Carbon Dioxide 18 L Anion Gap 17 BUN 154 H Creatinine 6.66 H Est GFR ( Amer) 10 L Glucose 187 H Calcium 9.6 Total Bilirubin 0.5 AST 54 Alkaline Phosphatase 156 H Total Protein 7.6 Albumin 3.6 Urine Color Urine Appearance Urine pH Ur Specific [place] Urine Protein Urine Glucose (UA) Urine Ketones Urine Blood Urine Nitrite Ur Leukocyte Esterase Urine WBC (Auto) Urine RBC (Auto) 05/04/19 05/04/19 05/04/19 16:25 18:15 18:34 WBC RBC Hgb Hct MCV MCH MCHC RDW Plt Count Seg Neutrophils % Carbonic Acid HCO3/H2CO3 Ratio ABG pH ABG pCO2 ABG pO2 ABG HCO3 ABG O2 Saturation ABG Base Excess FiO2 Sodium 131.4 L 132.1 L Potassium 8.6 H* 7.8 H* Chloride 94 L 98 Carbon Dioxide 21 L 22 Anion Gap 16 12 BUN 150 H 148 H Creatinine 6.44 H 6.15 H Est GFR ( Amer) 10 L 11 L Glucose 235 H 177 H Calcium 9.4 9.2 Total Bilirubin AST Alkaline Phosphatase Total Protein Albumin Urine Color YELLOW Urine Appearance TURBID Urine pH 7.0 Ur Specific [place] 1.012 Urine Protein >=500 H Urine Glucose (UA) NEGATIVE Urine Ketones NEGATIVE Urine Blood MODERATE H Urine Nitrite NEGATIVE Ur Leukocyte Esterase MODERATE H Urine WBC (Auto) >182 Urine RBC (Auto) >182 05/04/19 05/04/19 12:15 12:15 Creatine Kinase 130 CK-MB (CK-2) 1.59 Troponin I 0.016 NT-Pro-B Natriuret Pep 3240 H Impressions: Chest X-Ray 05/04/19 12:18 IMPRESSION: Somewhat limited study. No definite consolidation or pulmonary nodules. Assessment & Plan - Diagnosis (1) Acute renal failure Qualifiers: Acute renal failure type: with other specified pathological lesion Is this a current diagnosis for this admission?: Yes Plan: Patient has got MAI in the setting of obstructive suprapubic catheter with complicated UTI and sepsis going into possible early septic shock. Compounding this problem is a severe hyperkalemia of 8+ with EKG changes. Patient has been treated conservatively for his hyperkalemia but repeat potassium came back at 8.5 that still puts him in jeopardy of cardiac arrest. IV fluids I have not yet been started because of lack of access. Suprapubic catheter has been changed by the senior engineering manager Dr. Rivera which revealed about 200+ cc of puslike urine. After discussions with the patient's daughter she wanted immediate hemodialysis to be instituted to correct the crisis situation. Therefore discussed this with the senior engineering manager about the need for transfer the patient to a tertiary care center as we do not have 24-7 dialysis capabilities. However if patient is not able to be transferred for what ever reason then I can have him dialyzed first thing in the morning NAM. Discussed with the patient's daughter about the impending crisis of hypertension of this magnitude. (2) Hyperkalemia Plan: Has got severe hyperkalemia with EKG changes. Conservative measures has been instituted but the repeat potassium has come back at 8.5. Ideally he needs renal replacements with acute hemodialysis. Patient's daughter wants the same. Discussed with senior engineering manager about this and the need for transfer to a tertiary care center for that as we do not have any 24/7 hemodialysis capabilities. If by any chance the patient is not able to be transferred I would request that a femoral dialysis catheter be placed and I will have the patient dialyzed first thing in the morning as soon as possible tomorrow.Discussed this at length with patient's daughter. (3) Acute encephalopathy Is this a current diagnosis for this admission?: Yes Plan: In the setting of UTI and sepsis. (4) Complicated UTI (urinary tract infection) Plan: Patient has got an obstructed suprapubic catheter which has been exchanged by Dr. Rivera with immediate relief of approx 250 cc of puslike urine. (5) DM2 (diabetes mellitus, type 2) Qualifiers: Diabetes mellitus senior living insulin use: with senior living use Diabetes mellitus complication status: with unspecified complications Plan: Needs tight control (6) Dehydration Plan: IV fluids to be instituted as soon as possible once access has been obtained. (7) HTN (hypertension) Qualifiers: Hypertension type: essential hypertension Qualified Code(s): I10 - Essential (primary) hypertension Plan: Presently dropping indicative of possibly going into septic shock. Monitor closely . (8) Hx of CVA with residual hemiplegia Plan: Status quo - Time Time Spent: 50 to 70 Minutes - Total time spent with this patient was approximately between 50 and 70 minutes of which half the time was spent in coordinating care discussing with various physicians and patient's daughter.
--- NOTE | 2019-05-04 21:01 | EKG REPORT ---
SEVERITY:- ABNORMAL ECG - RBBB AND LAFB SINUS BRADYCARDIA : Confirmed by: Dahlia Oliver MD 04-May-2019 21:00:24
[2019-05-04 21:31] LABS: ANION GAP 13 (5-19); CALCIUM 9.6 mg/dL (8.4-10.2); CARBON DIOXIDE 22 mmol/L (22-30); CHLORIDE 101 mmol/L (98-107); GLUCOSE 198 mg/dL (75-110)
[2019-05-04 21:38] LABS: BLOOD UREA NITROGEN 132 mg/dL (7-20)
[2019-05-04 21:39] LABS: POTASSIUM 6.5 mmol/L (3.6-5.0)
[2019-05-04] MEDS ORDERED: PIPERACILLIN SODIUM/TAZOBACTAM 2.25 GM in NORMAL SALINE 50 ML IV SCH (22:00)
[2019-05-05] MEDS: PIPERACILLIN SODIUM/TAZOBACTAM 2.25 GM in NORMAL SALINE 50 ML IV SCH ×3 (01:01→18:16)
[2019-05-05 07:13] LABS: ANION GAP 10 (5-19); CALCIUM 8.6 mg/dL (8.4-10.2); CARBON DIOXIDE 22 mmol/L (22-30); CHLORIDE 112 mmol/L (98-107); GLUCOSE 75 mg/dL (75-110)
[2019-05-05 07:27] LABS: BLOOD UREA NITROGEN 89 mg/dL (7-20); POTASSIUM 3.9 mmol/L (3.6-5.0)
[2019-05-05] MEDS: FAMOTIDINE INJ/PF 20 MG/2 ML SDV IV SCH ×2 (07:51→18:20)
[2019-05-05] MEDS: HEPARIN SOD (PORCINE) 5,000 UNIT/ML 1 ML VIAL SUBCUT SCH ×2 (07:51→18:18)
[2019-05-05] MEDS ORDERED: NORMAL SALINE 1000 ML 1,000 ML IV ONE (08:45)
[2019-05-05] MEDS: RINGERS SOLUTION,LACTATED 1,000 ML IV PRN ×2 (10:45→21:24)
[2019-05-05] MEDS ORDERED: NORMAL SALINE 1000 ML 500 ML IV ONE (11:00)
--- NOTE | 2019-05-05 11:59 | PDOC PROGRESS REPORT ---
Subjective Progress Note for:: 05/05/19 Reason For Visit: Patient seen in the ICU today. He is currently on BiPAP. He is looks stable. Discussions were done with the treating nurse. He has made good urine output since exchange of his suprapubic cystostomy catheter. His potassium is much improved to now 3+ from his 8+ on admission. His renal functions also improving the creatinine now down to 3+ from 6+ on admission. Blood pressure is a bit tenuous but being monitored. Physical Exam Vital Signs: Temp Pulse Resp BP Pulse Ox 97.3 F 79 12 108/78 100 05/05/19 08:00 05/05/19 10:00 05/05/19 10:07 05/05/19 10:07 05/05/19 10:00 Intake & Output 05/04/19 05/05/19 05/06/19 06:59 06:59 06:59 Intake Total 1050 50 Output Total 3550 200 Balance -2500 -150 Weight 88.3 kg General appearance: PRESENT: no acute distress Respiratory exam: PRESENT: clear to auscultation yokasta. ABSENT: crackles Cardiovascular exam: PRESENT: +S1, +S2 GI/Abdominal exam: PRESENT: normal bowel sounds, soft. ABSENT: organomegaly, tenderness Extremities exam: ABSENT: pedal edema Results Laboratory Results: 05/04/19 12:15 05/05/19 06:35 05/04/19 05/04/19 05/04/19 12:15 12:15 15:17 WBC 13.2 H RBC 4.32 L Hgb 13.1 L Hct 39.5 MCV 91 MCH 30.4 MCHC 33.2 RDW 14.6 H Plt Count 130 L Seg Neutrophils % 81.0 H Carbonic Acid Cancelled HCO3/H2CO3 Ratio Cancelled ABG pH Cancelled ABG pCO2 Cancelled ABG pO2 Cancelled ABG HCO3 Cancelled ABG O2 Saturation Cancelled ABG Base Excess Cancelled FiO2 Cancelled Sodium 130.0 L Potassium 8.8 H* Chloride 95 L Carbon Dioxide 18 L Anion Gap 17 BUN 154 H Creatinine 6.66 H Est GFR ( Amer) 10 L Glucose 187 H Calcium 9.6 Total Bilirubin 0.5 AST 54 Alkaline Phosphatase 156 H Total Protein 7.6 Albumin 3.6 Urine Color Urine Appearance Urine pH Ur Specific [place] Urine Protein Urine Glucose (UA) Urine Ketones Urine Blood Urine Nitrite Ur Leukocyte Esterase Urine WBC (Auto) Urine RBC (Auto) 05/04/19 05/04/19 05/04/19 16:25 18:15 18:34 WBC RBC Hgb Hct MCV MCH MCHC RDW Plt Count Seg Neutrophils % Carbonic Acid HCO3/H2CO3 Ratio ABG pH ABG pCO2 ABG pO2 ABG HCO3 ABG O2 Saturation ABG Base Excess FiO2 Sodium 131.4 L 132.1 L Potassium 8.6 H* 7.8 H* Chloride 94 L 98 Carbon Dioxide 21 L 22 Anion Gap 16 12 BUN 150 H 148 H Creatinine 6.44 H 6.15 H Est GFR ( Amer) 10 L 11 L Glucose 235 H 177 H Calcium 9.4 9.2 Total Bilirubin AST Alkaline Phosphatase Total Protein Albumin Urine Color YELLOW Urine Appearance TURBID Urine pH 7.0 Ur Specific [place] 1.012 Urine Protein >=500 H Urine Glucose (UA) NEGATIVE Urine Ketones NEGATIVE Urine Blood MODERATE H Urine Nitrite NEGATIVE Ur Leukocyte Esterase MODERATE H Urine WBC (Auto) >182 Urine RBC (Auto) >182 05/04/19 05/05/19 21:02 06:35 WBC RBC Hgb Hct MCV MCH MCHC RDW Plt Count Seg Neutrophils % Carbonic Acid HCO3/H2CO3 Ratio ABG pH ABG pCO2 ABG pO2 ABG HCO3 ABG O2 Saturation ABG Base Excess FiO2 Sodium 135.6 L 144.1 Potassium 6.5 H* D 3.9 D Chloride 101 112 H Carbon Dioxide 22 22 Anion Gap 13 10 BUN 132 H 89 H D Creatinine 5.38 H 3.27 H Est GFR ( Amer) 13 L 22 L Glucose 198 H 75 Calcium 9.6 8.6 Total Bilirubin AST Alkaline Phosphatase Total Protein Albumin Urine Color Urine Appearance Urine pH Ur Specific [place] Urine Protein Urine Glucose (UA) Urine Ketones Urine Blood Urine Nitrite Ur Leukocyte Esterase Urine WBC (Auto) Urine RBC (Auto) 05/04/19 05/04/19 12:15 12:15 Creatine Kinase 130 CK-MB (CK-2) 1.59 Troponin I 0.016 NT-Pro-B Natriuret Pep 3240 H Impressions: Chest X-Ray 05/04/19 12:18 IMPRESSION: Somewhat limited study. No definite consolidation or pulmonary nodules. Assessment & Plan - Diagnosis (1) Acute renal failure Qualifiers: Acute renal failure type: with other specified pathological lesion Qualified Code(s): N17.8 - Other acute kidney failure Is this a current diagnosis for this admission?: Yes Plan: Obstructive in nature secondary to obstructive cystostomy. Much improved after exchange of cystostomy catheter by help desk team leader.Patient currently on IV fluid resuscitation along with IV antibiotics for his gram-negative UTI with sepsis/early septic shock. Renal functions are markedly improving compared to initial values and his potassium is now normokalemic.I am going to sign off this gentleman and please call on a as needed basis. (2) Hyperkalemia Plan: Resolved. (3) Acute encephalopathy Is this a current diagnosis for this admission?: Yes Plan: Acute on chronic in the given settings. Hope fully he should improve with improvement of his clinical overall conditions. (4) Complicated UTI (urinary tract infection) Plan: On antibiotics. Being managed by help desk team leader. (5) DM2 (diabetes mellitus, type 2) Qualifiers: Diabetes mellitus mcfp insulin use: with mcfp use Diabetes mellitus complication status: with unspecified complications Plan: As per help desk team leader. (6) Dehydration Plan: Improving with fluid resuscitation.
[2019-05-05 14:25] LABS: ARTERIAL BLOOD BASE EXCESS -3.6 mmol/L; ARTERIAL BLOOD H2CO3 1.19 mmol/L (1.05-1.35); ARTERIAL BLOOD HCO3 21.6 mmol/L (20-24); ARTERIAL BLOOD O2 SATURATION 98.5 % (94-98); ARTERIAL BLOOD PCO2 39.7 mmHg (35-45); ARTERIAL BLOOD PH 7.35 (7.35-7.45); ARTERIAL BLOOD PO2 132.8 mmHg (80-100); ARTERIAL BLOOD TOTAL CO2 22.8 mmol/L (23-27)
[2019-05-05 14:28] LABS: ABSOLUTE EOSINOPHILS # (AUTO) 0.6 10^3/uL (0.0-0.6); ABSOLUTE LYMPHOCYTES (AUTO) 0.6 10^3/uL (0.5-4.7); ABSOLUTE MONOCYTES (AUTO) 0.8 10^3/uL (0.1-1.4); ABSOLUTE NEUT (AUTO) 8.3 10^3/uL (1.7-8.2); BASOPHILS % (AUTO) 0.3 % (0-2); EOSINOPHILS % (AUTO) 5.6 % (0-6); HEMATOCRIT 32.2 % (37.9-51.0); LYMPHOCYTES % (AUTO) 5.8 % (13-45); MEAN CORPUSCULAR HEMOGLOBIN 31.1 pg (27.0-33.4); MEAN CORPUSCULAR VOLUME 92 fl (80-97); MONOCYTES % (AUTO) 7.8 % (3-13); PLATELET COUNT 118 10^3/uL (150-450); RED BLOOD COUNT 3.52 10^6/uL (4.35-5.55); RED CELL DISTRIBUTION WIDTH 14.5 % (11.5-14.0); SEGMENTED NEUTROPHILS % (AUTO) 80.5 % (42-78); TOTAL CELLS COUNTED % (AUTO) 100 %; WHITE BLOOD COUNT 10.3 10^3/uL (4.0-10.5)
[2019-05-05 14:37] LABS: HEMOGLOBIN 10.9 g/dL (13.5-17.0)
[2019-05-05 15:35] LABS: ARTERIAL BLOOD FIO2 3
[2019-05-05 16:30] LABS: ANION GAP 8 (5-19); BLOOD UREA NITROGEN 84 mg/dL (7-20); CALCIUM 8.9 mg/dL (8.4-10.2); CARBON DIOXIDE 25 mmol/L (22-30); CHLORIDE 110 mmol/L (98-107); POTASSIUM 3.9 mmol/L (3.6-5.0)
[2019-05-05 16:40] LABS: GLUCOSE 69 mg/dL (75-110)
[2019-05-06] MEDS: PIPERACILLIN SODIUM/TAZOBACTAM 2.25 GM in NORMAL SALINE 50 ML IV SCH ×3 (01:54→17:04)
[2019-05-06] MEDS: RINGERS SOLUTION,LACTATED 1,000 ML IV PRN ×3 (01:55→14:25)
[2019-05-06] MEDS: FAMOTIDINE INJ/PF 20 MG/2 ML SDV IV SCH (06:00)
[2019-05-06] MEDS: HEPARIN SOD (PORCINE) 5,000 UNIT/ML 1 ML VIAL SUBCUT SCH ×2 (06:00→17:08)
[2019-05-06 07:09] LABS: ANION GAP 8 (5-19); CALCIUM 9.2 mg/dL (8.4-10.2); CARBON DIOXIDE 26 mmol/L (22-30); CHLORIDE 113 mmol/L (98-107); GLUCOSE 91 mg/dL (75-110); POTASSIUM 3.7 mmol/L (3.6-5.0)
[2019-05-06 07:35] LABS: BLOOD UREA NITROGEN 53 mg/dL (7-20)
[2019-05-06] MEDS ORDERED: VANCOMYCIN HCL 1,500 MG in DEXTROSE 5%-WATER 250 ML IV SCH (12:00)
[2019-05-06] MEDS ORDERED: VANCOMYCIN HCL 1,000 MG in DEXTROSE 5%-WATER 250 ML IV SCH (18:00)
[2019-05-07] MEDS: RINGERS SOLUTION,LACTATED 1,000 ML IV PRN (00:24)
[2019-05-07] MEDS: PIPERACILLIN SODIUM/TAZOBACTAM 2.25 GM in NORMAL SALINE 50 ML IV SCH (03:08)
--- NOTE | 2019-05-07 05:52 | Progress Note ---
Provider Note Provider Note: ID Consult/Antimicrobial Stewardship Note Asked to review patient's chart by Pharmacy. Pt not seen or examined. Pt presented on 05/04/19 with obstructive uropathy causing MAI and severe hyperkalemia. He has also been given the diagnosis of sepsis secondary to complicated UTI. Blood cultures from 05/05 are negative to date. UCx grew >100k cfu of Providencia stuartii and 50-60k cfu of Proteus mirabilis. He has been on Zosyn empirically. Both isolates are reported susceptible to 2nd, 3rd and 4th generation cephalosporins, carbapenems, Unasyn and Zosyn. Recommendations Based on urine culture and susceptibility results, Zosyn can be de-escalated to Rocephin 2 grams IV daily. Geo Ayers MD [facility] pager [phone]
[2019-05-07] MEDS: HEPARIN SOD (PORCINE) 5,000 UNIT/ML 1 ML VIAL SUBCUT SCH (05:55)
[2019-05-07] MEDS ORDERED: LISINOPRIL 5 MG TABLET PO SCH (10:00)
[2019-05-07] MEDS ORDERED: CEFTRIAXONE 2 GM/D5W RTU 2 GM/50 ML RTUPB IV SCH (10:00)
--- NOTE | 2019-05-07 11:15 | PDOC TRANSFER SUMMARY ---
General - Admit/Disc Date/PCP Admission Date/Primary Care Provider: 05/04/19 16:09 HAROON MARTIN MD Discharge Date: 05/07/19 - Discharge Diagnosis (1) Acute renal failure Is this a current diagnosis for this admission?: Yes Summary: The patient presented with acute renal shutdown due to obstuctive uropathy. He had developed a UTI with thick sediment which resulted in an obstuctionof his cather. His creatinine and potassium дмитрий as a result. I changed out the catheter and eh developed urine flow. His potassium corrected thereafter. (2) Hyperkalemia Is this a current diagnosis for this admission?: Yes Summary: His potassium corrected once the patient started diuresing iafter the catheter was replaced (3) urosepsis Is this a current diagnosis for this admission?: Yes Summary: The patient grew out oroeus mirabilis .. He shoulkd receive a total of 7 days of abx therapay (4) Acute encephalopathy Is this a current diagnosis for this admission?: Yes - Additional Information Resuscitation Status: Full Code Discharge Diet: Tube Feeding (Comments) Discharge Activity: Activity As Tolerated Home Medications: Ascorbic Acid [Vitamin C 500 mg Tablet] 500 mg GT DAILY 05/04/19 Cranberry Extract [Cranberry 250 mg Tablet] 500 mg GT DAILY 05/04/19 Famotidine [Pepcid 20 mg Tablet] 20 mg GT BID 05/04/19 Guaifenesin [Robitussin Syrup 200 mg/10 ml Ud Cup] 30 ml GT Q6HP PRN 05/04/19 Insulin Detemir [Levemir] 15 unit SQ QAM 05/04/19 Insulin Lispro [Humalog Insulin 100 Unit/1 ml 3 ml Vial] 0 unit SUBCUT .SLD SCALE 05/04/19 Ipratropium/Albuterol Sulfate [Duoneb 3 ml Ampul] 3 ml NEB RTQ2HP PRN 05/04/19 Ipratropium/Albuterol Sulfate [Duoneb 3 ml Ampul] 3 ml NEB RTQ6HP PRN 05/04/19 Isosorbide Dinitrate [Isordil Titradose 20 Mg Tablet] 20 mg GT BID 05/04/19 Levetiracetam [Spritam] 750 mg GT Q12 05/04/19 Lisinopril [Prinivil 2.5 mg Tablet] 2.5 mg GT DAILY 05/04/19 Metoprolol Tartrate [Lopressor 25 mg Tablet] 25 mg GT Q12 05/04/19 Multivit-Minerals/Ferrous Gluc [Certa Db Liquid] 9 mg GT DAILY 05/04/19 Ondansetron HCl [Zofran 4 mg Tablet] 4 mg GT Q8HP PRN 05/04/19 Potassium Chloride [Potassium Chloride 20 Meq Packet] 20 meq GT DAILY 05/04/19 History of Present Illness Admission Date/PCP: 05/04/19 16:09 HAROON MARTIN MD Hospital Course Hospital Course: The patient presented as specified with acute renbal failure secondary to UTI with ibstruction of his cZtheter. It was repalced and he has done well since. Physical Exam Vital Signs: Temp Pulse Resp BP Pulse Ox 98.5 F 79 23 H 117/76 99 05/07/19 11:00 05/07/19 11:00 05/07/19 11:00 05/07/19 11:00 05/07/19 11:00 Intake & Output 05/06/19 05/07/19 05/08/19 06:59 06:59 06:59 Intake Total 4570 2938 50 Output Total 2595 1385 100 Balance 1975 1553 -50 Weight 91.8 kg 90.7 kg General appearance: PRESENT: no acute distress, well-developed, well-nourished Head exam: PRESENT: atraumatic, normocephalic Eye exam: PRESENT: conjunctiva pink, EOMI, PERRLA. ABSENT: scleral icterus Ear exam: PRESENT: normal external ear exam Mouth exam: PRESENT: moist, tongue midline Neck exam: ABSENT: carotid bruit, JVD, lymphadenopathy, thyromegaly Respiratory exam: PRESENT: clear to auscultation yokasta. ABSENT: rales, rhonchi, wheezes Cardiovascular exam: PRESENT: RRR. ABSENT: diastolic murmur, rubs, systolic murmur Pulses: PRESENT: normal dorsalis pedis pul Vascular exam: PRESENT: normal capillary refill GI/Abdominal exam: PRESENT: normal bowel sounds, soft. ABSENT: distended, guarding, mass, organolmegaly, rebound, tenderness Rectal exam: PRESENT: deferred Extremities exam: PRESENT: full ROM. ABSENT: calf tenderness, clubbing, pedal edema Neurological exam: PRESENT: alert, awake, oriented to person, oriented to place, oriented to time, oriented to situation, CN II-XII grossly intact. ABSENT: motor sensory deficit Psychiatric exam: PRESENT: appropriate affect, normal mood. ABSENT: homicidal ideation, suicidal ideation Skin exam: PRESENT: dry, intact, warm. ABSENT: cyanosis, rash Results Laboratory Results: 05/05/19 13:50 05/06/19 06:05 05/04/19 05/04/19 12:15 12:15 Creatine Kinase 130 CK-MB (CK-2) 1.59 Troponin I 0.016 NT-Pro-B Natriuret Pep 3240 H Impressions: Chest X-Ray 05/04/19 12:18 IMPRESSION: Somewhat limited study. No definite consolidation or pulmonary nodules. Transfer Plan - Disposition Transfer Plan: Patient will need a full 7 days of therapy. He should resume home meds - Time Spent with Patient Time spent with patient: Greater than 30 Minutes Qualifiers - * PATIENT BEING DISCHARGED WITH ANY OF THE FOLLOWING DIAGNOSIS: No VTE patient discharged on overlapping Therapy?: No Acute Heart Failure - Is this a Heart Failure Patient?: No
[2019-05-07 12:14] VITALS: BP 165/83
== END 2019-05-07 15:23 | DRG 871 ==
LOC: ER 12:04 → EH 16:09 → ICU 16:58
PROVIDERS: ADMIT Internal Medicine; ATTEND Internal Medicine
PROC: 0T2BX0Z Change Drainage Device in Bladder, External Approach (ICD-10-PCS; principal; 2019-05-04)
PROC: 5A09357 Assistance with Respiratory Ventilation, Less than 24 Consecutive Hours, Continuous Positive Airway Pressure (ICD-10-PCS; 2019-05-04)
PROC: 06HY33Z Insertion of Infusion Device into Lower Vein, Percutaneous Approach (ICD-10-PCS; 2019-05-04)
PROC: B548ZZA Ultrasonography of Superior Vena Cava, Guidance (ICD-10-PCS; 2019-05-04)
DX: A41.59 Other Gram-negative sepsis (principal); R65.21 Severe sepsis with septic shock; T85.698A Other mechanical complication of other specified internal prosthetic devices, implants and grafts, initial encounter; G93.40 Encephalopathy, unspecified; N17.8 Other acute kidney failure; I69.359 Hemiplegia and hemiparesis following cerebral infarction affecting unspecified side; N39.0 Urinary tract infection, site not specified; E87.5 Hyperkalemia; E86.0 Dehydration; J44.9 Chronic obstructive pulmonary disease, unspecified; R06.03 Acute respiratory distress; N13.9 Obstructive and reflux uropathy, unspecified; B96.4 Proteus (mirabilis) (morganii) as the cause of diseases classified elsewhere; E11.9 Type 2 diabetes mellitus without complications; I69.898 Other sequelae of other cerebrovascular disease; I69.320 Aphasia following cerebral infarction; D64.9 Anemia, unspecified; Z79.4 Long term (current) use of insulin; I10 Essential (primary) hypertension; M24.50 Contracture, unspecified joint; R53.81 Other malaise; E78.5 Hyperlipidemia, unspecified; I25.2 Old myocardial infarction; N40.1 Benign prostatic hyperplasia with lower urinary tract symptoms; K21.9 Gastro-esophageal reflux disease without esophagitis; Z87.891 Personal history of nicotine dependence; Z88.8 Allergy status to other drugs, medicaments and biological substances; Z88.6 Allergy status to analgesic agent; Z91.040 Latex allergy status; Z87.440 Personal history of urinary (tract) infections
CPT/HCPCS: 36415; 71045; 80048; 80053; 81001; 82550; 82553; 82803; 82962; 83880; 84484; 85025; 85610; 85730; 87040; 87077; 87086; 87088; 87186; 93005; 93010; 94660; 96361; 96374; 96375; 99291; C1751; C1758; J0610; J0696; J1644; J1815; J2543; J3370; J3490; J7030; J7060; J7120; S0028